=== PATIENT | female | born 1940 | race Caucasian/White ===

== ENCOUNTER 2020-05-21 15:25 | Emergency (ER) | payer MEDICARE, SELFPAY ==
[2020-05-21 15:34] VITALS: BP 156/87; PULSE 68; RESP 18; TEMP 37.1; O2SAT 97; BMI 29.2
--- NOTE | 2020-05-21 16:01 | CTR_ITS ---
PROCEDURE INFORMATION: Exam: CT Abdomen And Pelvis Without Contrast Exam date and time: 05/21/2020 4:02 PM Age: 79 years old Clinical indication: Injury or trauma; Fall; Blunt; Rlq; Prior surgery; Surgery type: Vaginal repair, hyst, gb, pacemaker; Additional info: Fall. Pelvis and right hip pain TECHNIQUE: Imaging protocol: Computed tomography of the abdomen and pelvis without contrast. Radiation optimization: All CT scans at this facility use at least one of these dose optimization techniques: automated exposure control; mA and/or kV adjustment per patient size (includes targeted exams where dose is matched to clinical indication); or iterative reconstruction. COMPARISON: No relevant prior studies available. RADIATION DOSE METRICS: Total DLP (mGy-cm): 1036.53 FINDINGS: Liver: There are no focal liver lesions present. Gallbladder and bile ducts: Cholecystectomy. Pancreas: The pancreas is normal. Spleen: The spleen is normal. Adrenal glands: The adrenal glands are normal. Kidneys and ureters: There is mild right renal pelviectasis. No renal, ureteral, or bladder calculi are seen. Stomach and bowel: There is a large hiatal hernia which contains at least 75% of the stomach. There is no evidence of intestinal perforation or obstruction. Appendix: No evidence of appendicitis. Intraperitoneal space: There is no free intraperitoneal air visualized. There is no evidence of free intraperitoneal or pelvic fluid. Vasculature: Atherosclerotic vascular disease is noted. Lymph nodes: Unremarkable. No enlarged lymph nodes. Urinary bladder: Unremarkable as visualized. Reproductive: Unremarkable as visualized. Bones/joints: There is a compression fracture at T12 which has been previously treated by means of vertebroplasty or kyphoplasty. Bone cement has extravasated into paraspinal venous structures, extending above and below the treated T12 level. One of these symmetric containing paraspinal veins extends to the dorsal wall of the inferior vena cava (series 2, images 26-27). There are degenerative changes of the hip, more severe on the right. There are old healed fractures of the left superior and inferior pubic rami. There is severe lower lumbar facet arthropathy. Soft tissues: There is a fat containing right supraumbilical hernia. CT/CT abdomen pelvis wo con [id number] IMPRESSION: 1. No acute fracture or traumatic visceral injury detected. T12 compression fracture, previously treated by vertebroplasty or kyphoplasty, with intravenous extravasation of bone cement, as above. 2. Large hiatal hernia containing at least 75% of the stomach. 3. Fat containing right supraumbilical hernia. Radiation Dose CTDIVOL = (mGy): DLP = 1036.53 (mGy-cm)
--- NOTE | 2020-05-21 16:01 | CTR_ITS ---
PROCEDURE INFORMATION: Exam: CT Cervical Spine Without Contrast Exam date and time: 05/21/2020 4:02 PM Age: 79 years old Clinical indication: Injury or trauma; Fall; Blunt trauma; Prior surgery; Surgery type: Pacemaker; Additional info: Neck pain TECHNIQUE: Imaging protocol: Computed tomography images of the cervical spine without contrast. Radiation optimization: All CT scans at this facility use at least one of these dose optimization techniques: automated exposure control; mA and/or kV adjustment per patient size (includes targeted exams where dose is matched to clinical indication); or iterative reconstruction. COMPARISON: No relevant prior studies available. RADIATION DOSE METRICS: Total DLP (mGy-cm): 451.07 FINDINGS: Bones/joints: Mild right convexity of the lower cervical spine. Anterolisthesis at C3-C4 due to facet laxity. Cervical facet arthropathy is most severe at the left upper cervical levels. Spondylitic changes are most severe at the C5-C6 and C6-C7 levels. Discs/Spinal canal/Neural foramina: No severe central canal stenosis demonstrated by CT. Neural foraminal stenosis is seen on the left at C2-C3, C3-C4, C4-C5, bilaterally at C5-C6 and C6-C7. A new Lungs: A calcified granuloma is seen at the right lung apex. Soft tissues: Unremarkable. CT/CT cervical spin wo con* [id number] IMPRESSION: 1. No acute cervical spinal injury demonstrated by CT. 2. Degenerative changes of the cervical spine, as above. Radiation Dose CTDIVOL = (mGy): DLP = 451.07 (mGy-cm)
--- NOTE | 2020-05-21 16:01 | CT_ITS ---
WS: [id number] CT scan of the head, 05/21/2020 Clinical Data: head trauma on plavix Comparison: None. DLP: 847.[address] scans at [facility] use at least one of these dose optimization techniques: automat ed exposure control; mA and/or kV adjustment per patient size (includes targeted exams where dose is matched to clinical indication); or iterative reconstruction. Findings: The ventricular system is honestly dilated without shift. No recent infarct or hemorrhage is seen. Th ere are no abnormal intracerebral masses. The cerebellum and brainstem are not remarkable. Bony windows of the skull and skull base show no fractures or erosions. There is modest soft tissue s welling over the anterior aspect of the left orbit. There is periorbital air surrounding the right gl obe. The mastoid air cells, internal auditory canals, sella turcica and intraorbital contents, are u nremarkable. Minimal mucoperiosteal thickening of the posterior aspect of the sphenoid sinuses is see n. CT/CT head wo con* [id number] Impression: 1. Negative for acute intracranial abnormalities. 2. Soft tissue swelling anterior to the left orbit and periorbital air surround ing the right globe.
--- NOTE | 2020-05-21 17:28 | CTR_ITS ---
PROCEDURE INFORMATION: Exam: CT Orbits Without Contrast Exam date and time: 05/21/2020 5:32 PM Age: 79 years old Clinical indication: Injury or trauma; Fall; Visual changes or disturbances; Other: Blurred vision RT eye; Blunt trauma (contusions or hematomas); Ocular (eye or eyeball); Right; Additional info: Fall. Air around orbit TECHNIQUE: Imaging protocol: Computed tomography images of the orbits without contrast. Radiation optimization: All CT scans at this facility use at least one of these dose optimization techniques: automated exposure control; mA and/or kV adjustment per patient size (includes targeted exams where dose is matched to clinical indication); or iterative reconstruction. COMPARISON: CT head wo con* [id number] 05/21/2020 4:26 PM RADIATION DOSE METRICS: Total DLP (mGy-cm): 380.35 FINDINGS: Orbital cavity: Scleral buckling is noted at the right optic globe. Correlate with surgical history. The appearance of the optic globes suggests previous bilateral cataract surgery. The optic globes are intact bilaterally.The orbital conal contents are unremarkable. Paranasal sinuses: There is mild partial opacification of the right ethmoid air cells. Air-fluid levels are seen in the left sphenoid sinus. Bones/joints: No acute facial fracture is identified. Soft tissues: No significant facial soft tissue swelling. CT/CT orbit BI wo con* [id number] IMPRESSION: 1. Postoperative changes of scleral buckling involving the right optic globe. 2. Appearance of the optic globes suggests previous bilateral cataract surgery. 3. No acute orbital injury is demonstrated. Radiation Dose CTDIVOL = (mGy): DLP = 380.35 (mGy-cm)
--- NOTE | 2020-05-21 19:15 | W.ED.HEATRA ---
HPI - Head Injury General: Chief complaint: Head Injury Stated complaint: fall, head injury Time Seen by Provider: 05/21/20 15:52 History of Present Illness: HPI Narrative: The patient is a 79-year-old female who comes to the ER after a ground-level fall where she tripped and fell forward. Is on Plavix and hit her head. She complains of right hip pain, headache, and facial pain. MD Complaint: head injury Mechanism of Injury: fall Loss of Consciousness: no Location of injury: frontal Severity: moderate Other Injuries: none Associated symptoms: Reports no associated symptoms; Deny confusion or neck pain Review of Systems General: Reports: 10 or more systems reviewed and unremarkable except in HPI and below Const: Denies: fatigue Eyes: Denies: change in vision, blurry vision or eye redness ENMT: Denies: throat pain, swelling of lips/tongue, ear or mastoid pain or nasal congestion Card: Denies: chest pain, palpitations, irregular heart rhythm, edema, dyspnea on exertion or orthopnea Resp: Denies: dyspnea, productive cough or non-productive cough GI: Denies: abdominal pain, diarrhea or GI cramping : Denies: flank pain, difficulty voiding, urinary frequency or urinary urgency Musc: Denies: neck pain, back pain, extremity pain, joint pain, joint redness, limited range of motion or muscle weakness Skin/Breast: Denies: rash, pruritus, erythema, skin pain or skin tenderness Neuro: Denies: headache(s), numbness in extremities, weakness in extremities, sensory changes, difficulty walking, dizziness, confusion or Slurred speech present Psych: Denies: anxiety or depression Endo: Denies: polyuria All/Imm: Denies: urticaria, throat swelling or tongue swelling Physical Exam Const: COMMON NORMALS: no acute distress, average body habitus, patient oriented x3, no limitations, healthy appearing, alert and well nourished GENERAL APPEARANCE: cooperative, comfortable, well kempt and well developed ORIENTATION/CONSCIOUSNESS: Yes awake, Yes oriented to person, Yes oriented to place and Yes oriented to time HENMT: COMMON NORMALS: normocephalic, external ears normal and Normal external nose present HEAD & SCALP: normal to inspection and normocephalic HEAD IMAGES: 1. Mild soft tissue swelling and tenderness NOSE: Normal external nose present EXTERNAL EAR: Yes external ears normal MOUTH: Normal oral and palatal mucosa present THROAT: posterior oropharynx normal OTHER: She is able to read with both eyes and with 1 eye covered using both eyes. She says her right eye is slightly blurry but she is able to read fine print out a couple feet away with that eye. No diplopia. Full range of motion with her eyes. Eye: COMMON NORMALS: Equal, round and reactive pupils present and EOMs intact bilaterally GENERAL EYE: appearance normal, both eyes and all related structures PUPIL: Yes Equal, round and reactive pupils present Neck/C-Spine: COMMON NORMALS: full ROM, no lymphadenopathy, no meningeal signs and no JVD GENERAL: Yes normal visual inspection Lymph: LYMPHATIC: no lymphadenopathy noted Chest: COMMONS NORMALS: normal inspection of the chest and normal palpation of entire chest wall Resp: COMMON NORMALS: normal respiratory effort, No retractions, No use of accessory muscles, clear to auscultation bilaterally and percussion normal EFFORT & INSPECTION: Yes able to speak in complete sentences AUSCULTATION: clear to auscultation bilaterally PERCUSSION: percussion normal Cardio: COMMON NORMALS: no JVD, regular rate, regular rhythm, S1 normal heart sound present, S2 normal heart sound present and Peripheral pulses 2+ throughout RATE: regular rate RHYTHM: regular rhythm HEART SOUNDS: S1 normal heart sound present and S2 normal heart sound present PERIPHERAL PULSES: Peripheral pulses 2+ throughout GI: COMMON NORMALS: Normal to inspection, nondistended, normoactive bowel sounds present, Soft to palpation, non-tender and no masses INSPECTION: Yes normal to inspection PALPATION: Yes Soft to palpation : COMMON NORMALS: Yes no CVA tenderness BLADDER/KIDNEY EXAM: Yes no CVA tenderness Back/Pelvis: COMMON NORMALS: no CVA tenderness, thoracic and lumbar spine normal to inspection, no thoracic nor lumbar tenderness and thoraco-lumbar ROM normal OTHER: Mild tenderness to right pelvis anteriorly and hip joint. She is able to bear weight on that joint. Extremity: COMMON NORMALS: normal to inspection, full ROM, capillary refill normal, no joint enlargement and no pedal edema GENERAL: Yes normal exam except as noted Neuro: COMMON NORMALS: patient oriented x3, CN's II-XII intact bilaterally, moves all extremities, no focal motor deficits, no sensory deficits noted and gait normal SENSORIUM/ORIENTATION: Yes alert, Yes oriented to person, Yes oriented to place and Yes oriented to time MENINGEAL SIGNS: Yes no meningeal signs Psych: COMMON NORMALS: mental status grossly normal, Normal thought process present, cooperative, normal affect and speech normal APPEARANCE: Yes well kempt ATTITUDE: Yes calm SPEECH: Yes normal speech THOUGHT PROCESS: Normal thought process present Skin: COMMON NORMALS: no rashes or lesions noted GENERAL SKIN EXAM: no rashes or lesions noted Course Vital Signs: Vital signs: Vital Signs Temperature 98.7 F 05/21/20 15:34 Pulse Rate 68 05/21/20 15:34 Respiratory Rate 18 05/21/20 15:34 Blood Pressure 156/87 05/21/20 15:34 Pulse Oximetry 97 05/21/20 15:34 MDM - Head Injury MDM Narrative: Medical decision making narrative: Patient came in after a fall and she is on clopidogrel. CT was negative for fractures other than showing some free orbital air surrounding her right orbit. She also has slight blurry vision in that eye. Discussed with Dr. Langston who thinks there is likely an occult fracture in the medial wall of the orbit that is sending air into her eye. Recommended Augmentin and follow-up in his clinic. Placed case management referral to help her get an appointment. Also discussed with Dr. Singh the incidental finding of the T12 fracture which has been repaired and extravasated into the venous system. She is not complaining of pain there and recommends outpatient follow-up. ER with worsening symptoms. primary care in a week. Discharge Plan Discharge Patient Disposition: Home Clinical Impression: Orbital fracture, Closed head injury Condition: Stable Prescriptions: New Augmentin 875-125 mg tablet 1 tab PO Q12H Qty: 20 RF: 0 No Action losartan 50 mg tablet 50 mg PO DAILY@0800 RF: 0 Sotalol AF 160 mg tablet 160 mg PO BID@0800,1999 RF: 0 amlodipine 2.5 mg tablet 2.5 mg PO DAILY@0800 RF: 0 clopidogrel 75 mg tablet 75 mg PO DAILY@0800 RF: 0 pantoprazole 40 mg tablet,delayed release (DR/EC) 40 mg PO DAILY@0800 RF: 0 cyanocobalamin (vitamin B-12) 1,000 mcg/mL solution 1,000 mcg SUBCUT Q30D RF: 0 levothyroxine 125 mcg tablet 125 mcg PO DAILY@0800 RF: 0 hydrochlorothiazide 12.5 mg capsule 12.5 mg PO DAILY@0800 RF: 0 nitroglycerin 0.4 mg tablet, sublingual 0.4 mg sublingual Q5M MDD 3 PRN (Reason: Chest Pain) RF: 0 fluoxetine 20 mg capsule 40 mg PO DAILY@0800 RF: 0 Tylenol 325 mg Tablet 3,250,650 mg PO QID PRN (Reason: Pain) RF: 0 Vitamin D3 (with calcium carb) 1 tab PO DAILY@0800 RF: 0 Discharge Orders: Discharge ED (Routine); Ordered 05/21/20 Ordered By: Cuate Rodriges Discharge Diet: Advance as tolerated Discharge Activity: Resume usual activity Patient Instructions: Fractures - Orbital, Opioid Safety Activity Restrictions/Additional Instructions: There is some air in your right eye. CAT scan does not see a fracture but most likely there is one there albeit small and hidden. Please take the Augmentin and follow-up with Dr. Langston in his eye clinic within a couple days and return to the ER with worsening symptoms. 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
[2020-05-21] MEDS: amoxicillin-clav 875-125 mg Tablet 1 TAB PO (19:39)
[2020-05-21 19:49] VITALS: PULSE 78; RESP 18; O2SAT 98
--- NOTE | 2020-05-22 07:30 | DCPLANNER ---
Addendum entered by Liya Alvarenga 06/03/20 12:09: Patient had a follow up appointment scheduled for 05.28.[address] Langston - patient did attend appointment. Original Note: control system manager had message to schedule a follow up appointment for patient with Dr. Langston for air surrounding orbit possible fracture. control system manager faxed patients information to the office of Dr. Langston. Clinic will call patient with appointment information.
--- NOTE | 2020-05-23 08:39 | DCPLANNER ---
assistant food service manager had message to schedule a follow up appointment for patient with ortho for intravenous extravasation of vertebroplasty cement T12. assistant food service manager called the ortho clinic, spoke with Leena, gave clinic patients information. assistant food service manager was told that patients information would be printed and reviewed. Clinic will call patient with appointment information.
--- NOTE | 2020-06-03 09:50 | DCPLANNER ---
entry level account manager called the ortho clinic, spoke with Lise, to confirm that a follow up appointment had been scheduled. entry level account manager was told that when clinic tried to contact patient that the call could not be completed as dialed. entry level account manager called phone number [phone], and a recording stated that patient is unavailable at this time. entry level account manager was unable to speak with patient or leave a voicemail at this time.
== END 2020-05-21 19:50 | disposition home or self-care (01) ==
PROVIDERS: Emergency Provider Family Medicine
DX: S02.85XA Fracture of orbit, unspecified, initial encounter for closed fracture (principal); S09.8XXA Other specified injuries of head, initial encounter; Z79.02 Long term (current) use of antithrombotics/antiplatelets; W01.0XXA Fall on same level from slipping, tripping and stumbling without subsequent striking against object, initial encounter
CPT/HCPCS: 70450; 70480; 72125; 74176; 99283

== ENCOUNTER → 2020-07-10 11:11 | Outpatient (BNVA) | payer MEDICARE, SELFPAY | PROVIDERS: Visit Provider Family Medicine | DX: I10 Essential (primary) hypertension (principal) | CPT/HCPCS: 80048 ==

== ENCOUNTER → 2020-08-07 14:31 | Outpatient (BNVA) | payer MEDICARE, SELFPAY | PROVIDERS: Visit Provider Emergency Medicine | DX: R69 Illness, unspecified (principal); R61 Generalized hyperhidrosis; R80.9 Proteinuria, unspecified; R53.83 Other fatigue | CPT/HCPCS: 80053; 81000; 84443; 85025 ==

== ENCOUNTER → 2020-08-10 15:04 | Outpatient (BNVA) | payer MEDICARE, SELFPAY | PROVIDERS: Visit Provider Emergency Medicine | DX: T78.40XA Allergy, unspecified, initial encounter (principal); W57.XXXA Bitten or stung by nonvenomous insect and other nonvenomous arthropods, initial encounter; R61 Generalized hyperhidrosis; R53.83 Other fatigue; E87.1 Hypo-osmolality and hyponatremia | CPT/HCPCS: 71046; 86003; 86618; 86666; 86757 ==

== ENCOUNTER → 2020-08-19 10:19 | Outpatient (BNVA) | payer MEDICARE, SELFPAY | PROVIDERS: Visit Provider Family Medicine | DX: R53.83 Other fatigue (principal); E87.1 Hypo-osmolality and hyponatremia; M54.9 Dorsalgia, unspecified; I10 Essential (primary) hypertension; R53.82 Chronic fatigue, unspecified | CPT/HCPCS: 80048; 82607; 82652; 85025; 85651; 86140 ==

== ENCOUNTER 2020-10-29 09:49 | Outpatient (CLI) | payer MEDICARE, SELFPAY ==
--- NOTE | 2020-10-29 09:57 | XR_ITS ---
WS: [id number] Thoracic spine, 3 views, 10/29/2020. Clinical Data: M54.9 - Dorsalgia, unspecified Comparison: None. Findings: The thoracic vertebral bodies show osteoporosis. There is a compression fracture of indeterminate age of T11 with loss of 50% of the central vertebral body height. There is vertebroplasty cement in L1. Midline sternotomy sutures and a permanent pacemaker are noted. There is left pleural reaction. There are clips in the right upper quadrant from a cholecystectomy. XR/XR thoracic spine 3V* [id number] Impression: 1. Diffuse osteoporosis. 2. Compression fracture of indeterminate age of T11 and L1.
--- NOTE | 2020-10-29 09:57 | XR_ITS ---
WS: [id number] Lumbar spine, 3 views, 10/29/2020 Clinical Data: M54.9 - Dorsalgia, unspecified Comparison: None. Findings: There is a compression fracture with loss of over 50% of central vertebral body height of L1 with dahlia tebroplasty cement inside. There is a T11 compression fracture. There is a levoscoliosis. There is de generative disc narrowing at all disc levels except L3-L4. There is a subluxation of L5 on S1 of 0.8 cm. The transverse processes and SI joints are unremarkable . There is a pacemaker wire noted in the right ventricle. There are clips in the right upper quadrant from a cholecystectomy. Abdominal aorta shows atherosclerosis without an aneurysm. XR/XR lumbar spine 2-3V* [id number] Impression: 1. L1 and T11 compression fracture. 2. Diffuse osteoporosis with degenerative disc disease. 3. Subluxation of L5 on S1 of 0.8 cm 4. Levoscoliosis.
== END 2020-10-29 09:50 | disposition home or self-care (01) ==
PROVIDERS: PCP Nurse Practitioner Family; Visit Provider Nurse Practitioner Family
DX: M81.0 Age-related osteoporosis without current pathological fracture (principal); S22.080A Wedge compression fracture of T11-T12 vertebra, initial encounter for closed fracture; S32.010A Wedge compression fracture of first lumbar vertebra, initial encounter for closed fracture; X58.XXXA Exposure to other specified factors, initial encounter
CPT/HCPCS: 72072; 72100

== ENCOUNTER 2020-11-17 08:45 | Outpatient (CLI) | payer MEDICARE, SELFPAY ==
--- NOTE | 2020-11-17 09:30 | NM_ITS ---
WS: [id number] NUCLEAR MEDICINE WHOLE BODY BONE SCAN HISTORY: S22.080A - Wedge compression fracture of T11-T12 vertebrae. COMPARISON: Lumbar spine radiograph 10/29/2020. Thoracic spine radiograph 10/29/2020. TECHNIQUE: The patient was injected with 24.1 mCi of Technetium 99m HDP and serial whole-body scintig duke have been performed with anterior and posterior images. Intense uptake of radionuclide in the lower thoracic spine may be only involving the T10 vertebral estela dy. Compression fracture was noted on the prior radiograph. Minimal uptake in the RIGHT L3 pedicle fr om osteoarthritis. There is additional more focal increased uptake within the upper thoracic vertebra l bodies. This may be T3. There is additional increased uptake which is only marker probably at the T 7 level. The exact levels are difficult to identified. No corresponding abnormalities are noted on th e radiographs. Normal soft tissue uptake. Prior bilateral knee replacements. Moderate degenerative changes at the an kles and wrists bilaterally. Focal area of increased uptake involving the RIGHT pelvis may be related to a subacute pubic rami fracture. NM/NM bone scan whole body* [id number] IMPRESSION: 1. Focal intense uptake within the T10 vertebral body. From an acute osteoporo tic fracture. 2. Additional focal intense uptake in one of the upper thoracic vertebral bodi es, probably T3 from an acute fracture. If further evaluation is necessary cons idering these fractures MRI would provide additional information. 3. Normal soft tissue uptake.
== END 2020-11-17 08:46 | disposition home or self-care (01) ==
LOC: RAD 08:52
PROVIDERS: PCP Nurse Practitioner Family; Visit Provider Physician Assistant
DX: S22.080A Wedge compression fracture of T11-T12 vertebra, initial encounter for closed fracture (principal); X58.XXXA Exposure to other specified factors, initial encounter
CPT/HCPCS: 78306; A9561

== ENCOUNTER → 2020-11-20 11:32 | Outpatient (BNVA) | payer MEDICARE, SELFPAY | PROVIDERS: PCP Nurse Practitioner Family; Visit Provider Physician Assistant | DX: S22.000A Wedge compression fracture of unspecified thoracic vertebra, initial encounter for closed fracture (principal); M54.9 Dorsalgia, unspecified; Z20.822 Contact with and (suspected) exposure to COVID-19; X58.XXXA Exposure to other specified factors, initial encounter | CPT/HCPCS: 87635 ==

== ENCOUNTER → 2020-11-27 10:35 | Outpatient (BNVA) | payer MEDICARE, SELFPAY | PROVIDERS: PCP Family Medicine; Referring Provider Orthopaedic Surgery; Visit Provider Orthopaedic Surgery | DX: S22.000A Wedge compression fracture of unspecified thoracic vertebra, initial encounter for closed fracture (principal); Z20.822 Contact with and (suspected) exposure to COVID-19; X58.XXXA Exposure to other specified factors, initial encounter | CPT/HCPCS: 87635 ==

== ENCOUNTER 2020-12-03 05:47 | Day surgery (SDC) | payer MEDICARE, SELFPAY ==
[2020-11-24 13:31] VITALS: BMI 29.2
--- NOTE | 2020-11-24 16:19 | PC.NURSE ---
SURGERY CANCELED BECAUSE PT STILL ON PLAVIX. DR SO'S OFFICE NOTIFIED.IT IS TO BE RESCHEDULED. PT NOTIFIED THAT SHE IS TO GET CLEARANCE FROM HER CARDIAC DR TO HOLD HER PLAVIX FOR 4 DAYS BEFORE SURGERY.
[2020-12-03] VITALS (7 sets, daily range): BP systolic 158–190; BP diastolic 68–90; PULSE 70–85; RESP 16–18; TEMP 36.1–36.5; O2SAT 96–100
--- NOTE | 2020-12-03 | SCC_ITS ---
Procedure Done: 1. T10 kyphoplasty 2. T11 kyphoplasty 9.3 seconds of fluoroscopic guidance, for a cumulative dose of 31.97 mGy, was provided to Dr. Singh by the radiology department. C-arm images of the thoracic spine were saved for the patient's permanent record. [facility]
--- NOTE | 2020-12-03 05:59 | SC_ITS ---
WS: [id number] Exam: C-arm FL for Kyphoplasty Date/Time of Exam: 12/03/2020 5:59 AM Reason For Exam: Kyphoplasty Intraoperative C-arm images at the thoracolumbar junction are obtained in the AP and lateral views. Compression fractures of T11, T12 and L1 have been treated with kyphoplasty. The L1 and T11 fractures are relatively high-grade fractures with significant loss of vertebral height. The T12 fracture is a low-grade fracture. No obvious posterior displacement noted from images presented. SC/C-arm FL for Kyphoplasty IMPRESSION: 1. Kyphoplasty involving a compression fractures of T11, T12 and L1 as indicate d above.
[2020-12-03] MEDS: sodium chloride 0.9% 1,000 ML 30 ML IV (06:51)
--- NOTE | 2020-12-03 06:55 | W.PM.OPSUD ---
Surgery/Procedure H&P Update DATE OF PROCEDURE: December 03, 2020 DATE H&P PERFORMED: 11/20/20 H&P UPDATE INFORMATION: I have reviewed H&P completed within last 30 days, I have examined patient prior to procedure and No changes to prior documentation PREOP DIAGNOSIS: Compression fracture T10 PLANNED PROCEDURE: Operation Date: 12/03/20 07:00 Proposed Procedures p Kyphoplasty T10 T11 [id number] S22.00A(Not Applicable) - Nj Singh DO Operation Date: 12/03/20 15:50 Proposed Procedures p Kyphoplasty T11 T12 [id number] S22.00A(Not Applicable) - Nj Singh DO
--- NOTE | 2020-12-03 07:00 | ANES.PREANE2 ---
Pre-Anesthetic Assessment Pre-Anesthetic Assessment: Height/Weight: Height 1.63 m Weight 77.111 kg Temp Pulse Resp BP Pulse Ox 97.7 F 85 18 161/90 96 12/03/20 06:11 12/03/20 06:11 12/03/20 06:11 12/03/20 06:11 12/03/20 06:11 Preop Diagnosis: Compression fracture T10 Proposed Procedure: Operation Date: 12/03/20 07:00 Proposed Procedures p Kyphoplasty T10 T11 [id number] S22.00A(Not Applicable) - Nj Singh, DO Operation Date: 12/03/20 15:50 Proposed Procedures p Kyphoplasty T11 T12 13 S22.00A(Not Applicable) - Nj Singh, DO Was Beta Nadege taken within 24 hours: N/A Was Clonidine taken within 24 hours: N/A Last intake: Intake Last Liquid Date 12/02/20 Last Liquid Time 21:00 Last Solid Date 12/02/20 Last Solid Time 18:30 Social: Social History: No tobacco Exam: Pre-Anes Outpt Exam: alert, oriented x 3, clear to auscultation bilaterally and regular rate & rhythm Airway: Submandibular: WNL Cervical ROM: WNL MP: 2 History/ROS: No significant complaints CV/HEM: CV/HEM: Murmur Comments: Aortic valve replacement GI: GI: GERD Metabolic: Metabolic: Thyroid Musc/skel: Musc/skel: OA/DJD Comments: Osteoporosis Neuropsych: Neuropsych: TIA Anesthetic Plan: ASA status: 3 Anesthesia: General Risk of > 500 ml blood loss (7ml/kg in children): No Meds/Allergies Current Medications: Current Medications Generic Name Dose Route Start Last Admin Trade Name Freq PRN Reason Stop Dose Admin Sodium Chloride 1,000 mls @ 30 ml s/hr 12/03/20 06:00 12/03/20 06:51 Sodium Chloride 0.9% IV 12/04/20 05:59 30 mls/hr .Q24H RICKIE Administration PFSH Anesthesia PFSH: Medical History GERD (gastroesophageal reflux disease) History of CVA (cerebrovascular accident) Hypertension Hypothyroidism Osteoporosis Pacemaker Traumatic compression fracture of eleventh thoracic vertebra Surgical History Aortic valve replaced H/O eye surgery H/O vaginal surgery H/O: hysterectomy History of ankle surgery History of knee replacement History of open heart surgery Hx of cataract surgery Hx of tonsillectomy S/P cholecystectomy Family History Mother Stroke Social History Second hand smoke exposure: No Alcohol intake: current Alcohol intake frequency: holidays/special occasions only Female Reproductive History: Para: 2 Spontaneous abortions: No Data Anesthesia Cardiac Studies: No Data to Display
[2020-12-03] MEDS: iohexol 300 mg/mL 50 mL Btl (OR ONLY) XX (07:38)
--- NOTE | 2020-12-03 08:08 | P.PCN_ITS ---
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
--- NOTE | 2020-12-03 08:08 | PM.PACU ---
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
--- NOTE | 2020-12-03 08:10 | PM.OP ---
Operative Report Date of procedure: December 03, 2020 Pre-op Diagnosis: osteoporotic pathologic wedge Compression fracture T10, T11 Post-op diagnosis: same Procedure Done: 1. T10 kyphoplasty 2. T11 kyphoplasty Surgeon: Nj Singh Anesthesia: General Estimated blood loss (mL): 5 Condition: stable Disposition: PACU Procedure: 1. 10 kyphoplasty 2. T11 kyphoplasty Patient was brought to the operative suite. After undergoing anesthesia she was placed in the prone position. All areas impingement were well-padded. Patient was prepped and draped in normal sterile fashion. AP lateral fluoroscopy were brought in to do biplanar fluoroscopy. Attention was brought to the T10 vertebrae first. The left pedicle was identified the awl was inserted followed by the drill followed by the balloon. This is all followed on AP lateral fluoroscopy. Balloon was inflated. Then cement was inserted. This was followed on AP lateral fluoroscopy. Next attention was brought to the T11 vertebrae. The again pedicle was identified the awl was inserted the balloon was inserted the drill was inserted and then cement was inserted. Once is completed wounds were irrigated and closed with nylon suture sterile dressing was applied patient was transferred to the PACU in stable condition.
[2020-12-03] MEDS: HYDROcodone-acetaminophen 7.5-325 mg Tablet 1 TAB PO (08:42)
--- NOTE | 2020-12-03 15:51 | ANE.PACU2 ---
Inpatient post-anesthesia follow up: Airway intact: Yes Vital signs: Temperature 97.3 F Pulse Rate 70 Respiratory Rate 18 Blood Pressure 162/78 Pulse Oximetry 100 Oxygen Delivery Me thod Room Air Oxygen Flow Rate Fraction of Inspir ed Oxygen Hydration adequate: Yes Nausea and vomiting: No Pain level: 2 Mental status: Baseline
== END 2020-12-03 09:22 | disposition home or self-care (01) ==
PROVIDERS: PCP Family Medicine; Visit Provider Orthopaedic Surgery
PROC: (CPT 22513; principal; 2020-12-03 07:00)
DX: M80.88XA Other osteoporosis with current pathological fracture, vertebra(e), initial encounter for fracture (principal); Z86.73 Personal history of transient ischemic attack (TIA), and cerebral infarction without residual deficits; I10 Essential (primary) hypertension; Z95.0 Presence of cardiac pacemaker; E03.9 Hypothyroidism, unspecified; Z95.2 Presence of prosthetic heart valve; Z79.02 Long term (current) use of antithrombotics/antiplatelets; K21.9 Gastro-esophageal reflux disease without esophagitis
CPT/HCPCS: 22513; 22515; 76000; J0690; J1100; J2370; J2405; J2704; J2710; J3010; J3490; J7030

== ENCOUNTER 2020-12-30 09:07 | Outpatient (CLI) | payer MEDICARE, SELFPAY ==
--- NOTE | 2020-12-30 09:00 | IR_ITS ---
WS: [id number] MYELOGRAM LUMBAR SPINE Fluoroscopic guided lumbar myelogram CLINICAL INFORMATION: M54.50 - Low back pain, unspecified COMPARISON: None. TECHNIQUE: The procedure, including risks, benefits, and complications, were discussed with the patie nt who agreed to proceed. A timeout was performed to confirm correct patient, procedure, and site. Using sterile technique, the patient was prepped and draped in the usual sterile fashion. After admin istration of local anesthesia using 1% preservative-free lidocaine and using fluoroscopic guidance, a 22-gauge spinal needle was advanced into the subarachnoid space at the L5-S1 level. Subsequently 13 cc of Omnipaque 240 was administered into the thecal sac. The needle was removed and hemostasis was a chieved. Spot fluoroscopic images were obtained. FLUOROSCOPIC TIME: 1.1 minutes. Spot fluoroscopic images demonstrate lumbar scoliosis. Slight anterolisthesis L4 on L5 neutral positi on measuring 2.5 mm. This increases slightly on flexion to 3.6 mm. This decreases slightly on extensi on to 2.5 mm. Prior kyphoplasty changes with chronic compression at T10-T12. Disc space narrowing wor se at L2-3 L4-5 and L5-S1. Retrolisthesis L2 on L3 measuring 3.6 mm in neutral and unchanged on flexi on-extension. Prior sternotomy. Please see CT myelogram report for additional detail. IR/IR myelogram sp lumbar [id number] IMPRESSION: 1. Uncomplicated lumbar myelogram. 2. Mild flexion/extension instability L4-5 3. Moderate central canal stenosis L3-L4 and L4-L5. 4. Kyphoplasty changes at T10, T11, T12.
[2020-12-30] MEDS: iohexol 240 mg/mL 50 mL Btl INTRATHECA (10:11)
--- NOTE | 2020-12-30 11:30 | CT_ITS ---
WS: [id number] CT LUMBAR MYELOGRAM TECHNIQUE: Contrast-enhanced CT of the lumbar spine with coronal and sagittal reformatted images. CLINICAL INFORMATION: M54.50 - Low back pain, unspecified COMPARISON: None. DLP: 1979.[address] scans at [facility] use at least one of these dose optimization techniques: automated e xposure control; mA and/or kV adjustment per patient size (includes targeted exams where dose is matc hed to clinical indication); or iterative reconstruction. FINDINGS: Lumbar scoliosis. Prior kyphoplasty changes with anterior wedging at T10, T11, and T12. No significan t retropulsion. Disc space narrowing worse at L2-3 and L5-S1 with vacuum disc phenomenon. Slight ante rolisthesis L4 on L5 and L5 on S1. Slight retrolisthesis L2 on L3. L1-L2: Mild annular bulging with slight effacement of ventral thecal sac. Mild facet arthropathy. Mil d left and no significant right foraminal narrowing. Spinal canal is patent. L2-L3: Slight retrolisthesis with vacuum disc phenomenon. Narrowing of the right subarticular recess with slight impingement traversing right L3 nerve root. Mild central canal stenosis. Mild facet arthr opathy. Moderate right and no significant left foraminal narrowing. L3-L4:Mild disc bulging with endplate ridging. Moderate central canal stenosis and impingement dhaval sing L4 nerve roots bilaterally. Moderate facet arthropathy with ligamentum flavum hypertrophy. Kira en are patent. L4-L5: Slight anterolisthesis. Disc bulging and combination with facet arthropathy and ligamentum fla vum hypertrophy results in moderate to severe central canal stenosis and impingement traversing L5 ne rve roots bilaterally. Mild right foraminal narrowing. Left foramen is patent. Advanced facet arthrop athy. L5-S1: Disc osteophyte complex with endplate ridging. Slight anterolisthesis L5 on S1. Vacuum disc ph enomenon. Mild left and no significant right foraminal narrowing. Advanced facet arthropathy. Slight contact of the traversing S1 nerve roots. Degenerative arthritis sacroiliac joints. Large esophageal hiatal hernia with intrathoracic stomach. Interstitial thickening in the lung bases. Adrenal glands are normal. Left renal atrophy. CT/CT lumbar spine w con [id number] IMPRESSION: 1. Lumbar scoliosis. 2. Moderate central canal stenosis L3-4 and moderate to severe central canal s tenosis L4-5 due to disc bulging in combination with facet arthropathy and liga mentum flavum flavum hypertrophy. Advanced facet arthropathy L4-L5. 3. Recent kyphoplasty changes with compression of the T10, T11, T12 vertebral bodies. No retropulsion. Spinal canal is patent at the kyphoplasty levels. 4. Mild central canal stenosis L2-3 with impingement on the traversing right L 3 nerve root and subarticular recess. Moderate right foraminal narrowing. 5. Large esophageal hiatal hernia with intrathoracic stomach unchanged since C T abdomen pelvis May 21, 2020
== END 2020-12-30 09:08 | disposition home or self-care (01) ==
PROVIDERS: PCP Family Medicine; Visit Provider Orthopaedic Surgery
DX: M54.50 Low back pain, unspecified (principal); M41.86 Other forms of scoliosis, lumbar region; M48.061 Spinal stenosis, lumbar region without neurogenic claudication; K44.9 Diaphragmatic hernia without obstruction or gangrene; M53.2X6 Spinal instabilities, lumbar region
CPT/HCPCS: 62304; 72120; 72132; 85610; Q9966

== ENCOUNTER → 2021-01-12 10:03 | Outpatient (BNVA) | payer MEDICARE, SELFPAY | PROVIDERS: PCP Family Medicine; Visit Provider Family Medicine | DX: I10 Essential (primary) hypertension (principal); Z86.73 Personal history of transient ischemic attack (TIA), and cerebral infarction without residual deficits; K21.9 Gastro-esophageal reflux disease without esophagitis; E53.8 Deficiency of other specified B group vitamins; R53.83 Other fatigue; J44.9 Chronic obstructive pulmonary disease, unspecified; E03.9 Hypothyroidism, unspecified; Z13.220 Encounter for screening for lipoid disorders; Z13.6 Encounter for screening for cardiovascular disorders | CPT/HCPCS: 80053; 80061; 82607; 83735; 84443; 85025 ==

== ENCOUNTER → 2021-01-21 10:30 | Outpatient (BNVA) | payer MEDICARE, SELFPAY | PROVIDERS: PCP Family Medicine; Referring Provider Orthopaedic Surgery; Visit Provider Anesthesiology Pain Medicine | DX: M48.062 Spinal stenosis, lumbar region with neurogenic claudication (principal); S22.080A Wedge compression fracture of T11-T12 vertebra, initial encounter for closed fracture; M47.816 Spondylosis without myelopathy or radiculopathy, lumbar region; M51.16 Intervertebral disc disorders with radiculopathy, lumbar region; M79.604 Pain in right leg; M79.605 Pain in left leg; X58.XXXA Exposure to other specified factors, initial encounter; Z79.891 Long term (current) use of opiate analgesic | CPT/HCPCS: 99205 ==

== ENCOUNTER → 2021-02-11 13:39 | Outpatient (BNVA) | payer MEDICARE, SELFPAY | PROVIDERS: PCP Family Medicine; Visit Provider Anesthesiology Pain Medicine | DX: M48.062 Spinal stenosis, lumbar region with neurogenic claudication (principal); Z79.891 Long term (current) use of opiate analgesic | CPT/HCPCS: 64483; 64484; J1100; J3490 ==

== ENCOUNTER → 2021-02-25 10:50 | Outpatient (BNVA) | payer MEDICARE, SELFPAY | PROVIDERS: PCP Family Medicine; Visit Provider Anesthesiology Pain Medicine | DX: M48.062 Spinal stenosis, lumbar region with neurogenic claudication (principal); M47.816 Spondylosis without myelopathy or radiculopathy, lumbar region; M51.16 Intervertebral disc disorders with radiculopathy, lumbar region; S22.080A Wedge compression fracture of T11-T12 vertebra, initial encounter for closed fracture; M79.604 Pain in right leg; M79.605 Pain in left leg; X58.XXXA Exposure to other specified factors, initial encounter; Z79.891 Long term (current) use of opiate analgesic | CPT/HCPCS: 99214 ==

== ENCOUNTER 2021-03-02 10:51 | Outpatient (CLI) | payer MEDICARE, SELFPAY ==
--- NOTE | 2021-03-02 10:58 | XR_ITS ---
WS: [id number] Thoracic spine, 3 views, 03/02/2021 Clinical Data: S22.080A - Wedge compression fracture of T11-T12 vertebra... Comparison: Thoracic spine, 10/29/2020. Findings: Kyphoplasty cement is now within T11 and T12 vertebral bodies. There is still kyphoplasty cement and T12. There are compression fractures of T11 and T12 unchanged. There is diffuse osteoporosis. There a re midline sternotomy sutures. Pacemaker wires are present. There is an artificial cardiac valve. XR/XR thoracic spine 3V* [id number] Impression: 1. Kyphoplasty material now in T11 and T12. 2. No change in compression fractures of T11 and L1. 3. Osteoporosis of the thoracic vertebral bodies.
== END 2021-03-02 10:52 | disposition home or self-care (01) ==
LOC: RAD 10:55
PROVIDERS: PCP Family Medicine; Visit Provider Anesthesiology Pain Medicine
DX: S22.080A Wedge compression fracture of T11-T12 vertebra, initial encounter for closed fracture (principal); S32.019A Unspecified fracture of first lumbar vertebra, initial encounter for closed fracture; X58.XXXA Exposure to other specified factors, initial encounter; M81.0 Age-related osteoporosis without current pathological fracture
CPT/HCPCS: 72072

== ENCOUNTER → 2021-03-19 10:50 | Outpatient (BNVA) | payer MEDICARE, SELFPAY | PROVIDERS: PCP Family Medicine; Visit Provider Anesthesiology Pain Medicine | DX: M48.062 Spinal stenosis, lumbar region with neurogenic claudication (principal); M47.816 Spondylosis without myelopathy or radiculopathy, lumbar region; M51.16 Intervertebral disc disorders with radiculopathy, lumbar region; S22.080A Wedge compression fracture of T11-T12 vertebra, initial encounter for closed fracture; X58.XXXA Exposure to other specified factors, initial encounter; Z79.891 Long term (current) use of opiate analgesic | CPT/HCPCS: 99213 ==

== ENCOUNTER 2021-10-01 15:58 | Emergency (ER) | payer MEDICARE, SELFPAY ==
[2021-10-01 16:26] VITALS: BP 154/76; PULSE 76; RESP 16; TEMP 36.9; O2SAT 93; BMI 26.6
--- NOTE | 2021-10-01 17:45 | ED_ITS ---
HPI - Headache General: Chief Complaint: Headache Stated Complaint: Headache, sore throat Time Seen by Provider: 10/01/21 17:43 History of Present Illness: 80-year-old female comes in today with complaints of illness for the last 2 days. Patient reports started at 2 AM yesterday morn ing which she woke up chilling and feeling ill. Today patient reports 1 episode of emesis. Patient continues to have a headache and some generalized body aches. Patient has a history of coronary artery disease, pacemaker insertion, lumbar disc disease, facet arthritis, GERD, hypothyroidism, and hypertension. Patient appears nontoxic. Patient appears in mild to no pain. Associated symptoms: Reports malaise and vomiting (x1); Deny chest pain or rash Review of Systems Const: Reports: chills, body aches and malaise Eyes: Denies: change in vision ENMT: Reports: throat pain Card: Denies: chest pain Resp: Denies: dyspnea GI: Reports: vomiting (x1); Denies: abdominal pain : Denies: difficulty voiding Skin/Breast: Denies: rash Neuro: Reports: headache(s) PFSH ED PFSH: Medical History GERD (gastroesophageal reflux disease) History of CVA (cerebrovascular accident) Hypertension Hypothyroidism Osteoporosis Pacemaker Traumatic compression fracture of eleventh thoracic vertebra Surgical History Aortic valve replaced H/O eye surgery H/O vaginal surgery H/O: hysterectomy History of ankle surgery History of knee replacement History of open heart surgery Hx of cataract surgery Hx of tonsillectomy S/P cholecystectomy Family History Mother Stroke Social History Smoking and tobacco status: never smoked Second hand smoke exposure: No Alcohol intake: current Alcohol intake frequency: holidays/special occasions only Female Reproductive History: Para: 2 Spontaneous abortions: No Physical Exam Const: COMMON NORMALS: alert HENMT: COMMON NORMALS: normocephalic HEAD & SCALP: normocephalic THROAT: posterior oropharynx abnormal cobblestoning Neck/C-Spine: COMMON NORMALS: full ROM and no meningeal signs Resp: COMMON NORMALS: normal respiratory effort and clear to auscultation bi laterally AUSCULTATION: clear to auscultation bilaterally Cardio: COMMON NORMALS: regular rate and regular rhythm RATE: regular rate RHYTHM: regular rhythm GI: COMMON NORMALS: Soft to palpation and non-tender PALPATION: Yes Soft to palpation : COMMON NORMALS: Yes no CVA tenderness BLADDER/KIDNEY EXAM: Yes no CVA tenderness Back/Pelvis: COMMON NORMALS: no CVA tenderness Extremity: COMMON NORMALS: no pedal edema Neuro: SENSORIUM/ORIENTATION: Yes alert MENINGEAL SIGNS: Yes no meningeal signs Skin: COMMON NORMALS: no rashes or lesions noted GENERAL SKIN EXAM: no rashes or lesions noted Course Vital Signs: Vital signs: Vital Signs Temperature 98.3 F 10/01/21 19:21 Pulse Rate 71 10/01/21 19:21 Respiratory Rate 16 10/01/21 17:47 Blood Pressure 178/79 10/01/21 19:21 Pulse Oximetry 99 10/01/21 19:21 Oxygen Delivery Me thod 10/01/21 19:21 MDM - Headache Medical Decision Making 80-year-old female comes in today with complaints of illness that started yesterday about 2:00 in the morning. Patient reports that she felt chills had a headache and was nauseous. Patient did report 1 episode of nausea and vomiting today. Patient does have a cardiac history. Patient appears mildly unwell but not toxic. Lungs are clear to auscultation. Posterior pharynx shows postnasal drip with erythema. No significant swelling is noted to the lower extremities. Differential diagnosis includes but not limited to viral syndrome, COVID-19, electrolyte imbalance. Laboratory values noted a positive COVID-19 test. Troponin was unremarkable. Urinalysis was negative. Recommended patient follow-up as needed for worsening symptoms such as chest pain and shortness of breath. Reviewed the use of a pulse oximetry of patient to monitor for pulse ox greater than 90%. Patient reported understanding and agreed to plan. Lab Data : 10/01/21 18:41 10/01/21 18:20 Laboratory Results WBC 5.5 10^3/uL (4.0-10.0) 10/01/21 18:41 RBC 4.68 10^6/uL (4.1-5.3) 10/01/21 18:41 Hgb 13.4 g/dL (11.5-15.3) 10/01/21 18:41 Hct 42.8 % (37.0-47.0) 10/01/21 18:41 MCV 91.5 fl (81-99) 10/01/21 18:41 MCH 28.6 pg (28.0-34.0) 10/01/21 18:41 MCHC 31.3 g/dL (30.0-36.0) 10/01/21 18:41 RDW 14.1 % (12.1-15.1) 10/01/21 18:41 Plt Count 115 10^3/cmm (130-400) L 10/01/21 18:41 MPV 10.7 fL (7.4-10.4) H 10/01/21 18:41 Neut % (Auto) 49.0 % 10/01/21 18:41 Lymph % (Auto) 29.7 % 10/01/21 18:41 Stokes % (Auto) 18.9 % 10/01/21 18:41 Eos % (Auto) 1.6 % 10/01/21 18:41 Baso % (Auto) 0.4 % 10/01/21 18:41 Neut # (Auto) 2.68 10^3/uL (1.8-7.7) 10/01/21 18: Lymph # (Auto) 1.6 10^3/uL (0.8-4.8) 10/01/21 18:41 Stokes # (Auto) 1.0 10^3/uL (0.2-0.9) H 10/01/21 18:41 Eos # (Auto) 0.1 10^3/uL (0.0-0.8) 10/01/21 18:41 Baso # (Auto) 0.0 10^3/uL (0.0-0.1) 10/01/21 18: Nucleated RBC % (auto) 0 % 10/01/21 18: Nucleated RBCs # 0.0 /100WBC 10/01/21 18:41 Troponin T Gen 5 ng/L 9 ng/L (0-10) 10/01/21 18:20 Urine Color Yellow (Yellow) 10/01/21 18:30 Urine Appearance Sl hazy (CLEAR) 10/01/21 18:30 Urine pH 5 (5-7) 10/01/21 18:30 Ur Specific [place] 1.020 (1.005-1.030) 10/01/21 18:30 Urine Protein Neg (Negative) 10/01/21 18:30 Urine Glucose (UA) Norm (Normal) 10/01/21 18:30 Urine Ketones Negative (Negative) 10/01/21 18:30 Urine Blood Neg (Negative) 10/01/21 18:30 Urine Nitrate Negative (Negative) 10/01/21 18:30 Urine Bilirubin Neg (Negative) 10/01/21 18:30 Urine Urobilinogen Norm mg/dL (Negative) 10/01/21 18:30 Ur Leukocyte Esterase Negative (Negative) 10/01/21 18:30 SARS-CoV-2 Ag (Rapid) Positive (Negative) H 10/01/21 18:45 EKG Data EKG 1: EKG interpretation date: 10/01/21 EKG interpretation time: 18:10 Interpretation: EKG shows a atrial paced rhythm with a regular rate at [address] elevation or ectopy is noted. Prior exam was not immediately available for comparison. Discharge Plan Discharge Patient Disposition: Home Clinical Impression: COVID-19 Condition: Stable Prescriptions: No Action (DME) BD Eclipse Luer-Nirav 3 mL 23 x 1 syringe See Rx Instructions .Route Rx Instructions: As directed with B12 injection cyanocobalamin (vitamin B-12) 1,000 mcg/mL solution 1,000 mcg SUBCUT Q30D 300 Days Qty: 10 1RF Rx Instructions: with needles and syringe amlodipine 2.5 mg tablet 2.5 mg PO DAILY 90 Days Qty: 90 1RF clopidogrel 75 mg tablet 75 mg PO DAILY 90 Days Qty: 90 1RF losartan 50 mg tablet 50 mg PO DAILY 90 Days Qty: 90 1RF levothyroxine 125 mcg tablet 125 mcg PO DAILY 90 Days Qty: 90 1RF fluoxetine 20 mg capsule 20 mg PO DAILY 90 Days Qty: 90 1RF pantoprazole 40 mg tablet,delayed release (DR/EC) 40 mg PO BID 90 Days Qty: 180 1RF fluconazole 150 mg tablet 150 mg PO Q3D 0 Days Qty: 2 2RF Rx Instructions: may repeat second dose 72 hrs after first dose if symptoms persist sotalol [Sotalol AF] 160 mg tablet 160 mg PO BID@0800,1999 nitroglycerin 0.4 mg tablet, sublingual 0.4 mg sublingual Q5M MDD 3 PRN (Reason: Chest Pain) acetaminophen [Tylenol] 325 mg Tablet 3,250,650 mg PO QID PRN (Reason: Pain) Vitamin D3 (with calcium carb) 1 tab PO DAILY@0800 Discharge Orders: Discharge ED (Routine); Ordered 10/01/21 Ordered By: Alex Meier Referrals: Mary Mondragon MD [Primary Care Provider] - Discharge Diet: Usual diet Discharge Activity: Increase activity as tolerated Patient Instructions: COVID-19 (Coronavirus Disease 2019) (ED) Activity Restrictions/Additional Instructions: Drink plenty of water and fluids. Use acetaminophen or ibuprofen as needed for pain and fever. Most often the fever and symptoms start to resolve around day 5. The CDC recommends quarantine for the first 5 days and then after that to wear a mask for 10 days around other individuals. Monitor for worsening symptoms such as increased shortness of breath, chest pain, inability to hold fluids down, or new concerns; return to the ER for these issues. Coding Level of Care Code ED White Sugar Syrup Operator for Arash Fwd Exam Comprehensive
[2021-10-01 17:47] VITALS: BP 154/76; PULSE 76; RESP 16; TEMP 36.9; O2SAT 93
--- NOTE | 2021-10-01 18:05 | ECG_ITS ---
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 Measurements Intervals [place] Rate: 70 P: 128 CO: 194 QRS: -26 QRSD: 143 T: 45 QT: 461 QTc: 499 Interpretive Statements ELECTRONIC ATRIAL PACEMAKER BORDERLINE LEFT AXIS DEVIATION [QRS AXIS < -20] RIGHT BUNDLE BRANCH BLOCK [120+ ms QRS DURATION, UPRIGHT V1, 40+ ms S IN I/aVL/V4/V5/V6] Compared to ECG 06/01/2018 05:11:25 Right bundle-branch block now present Ventricular-paced complex(es) or rhythm no longer present Electronically Signed On 10-02-2021 6:16:39 CDT by Kaylee Trent M.D. [email or web address]
[2021-10-01 18:41] LABS: Add Urine Microscopic? NO; Charge for UA Resulting for Rev
[2021-10-01 18:47] VITALS: BP 173/72; PULSE 71; O2SAT 96
[2021-10-01 18:58] LABS: Bilirubin Urine Neg (Negative); Blood Urine Neg (Negative); Glucose Urine UA Norm (Normal); Ketones Urine Negative (Negative); Leukocyte Esterase Urine Negative (Negative); Nitrate Urine Negative (Negative); Protein Urine Neg (Negative); Urine Appearance SL Hazy (CLEAR); Urine Color Yellow (Yellow); Urobilinogen Urine Norm (Negative); pH Urine 5 (5-7)
[2021-10-01 19:11] LABS: Troponin T (5th) Once 9 ng/L (0-10)
[2021-10-01 19:21] VITALS: BP 178/79; PULSE 71; TEMP 36.8; O2SAT 99
[2021-10-01 19:22] LABS: Basophils % 0.4 %; Eosinophils # 0.1 10^3/uL (0.0-0.8); Eosinophils % 1.6 %; Hematocrit 42.8 % (37.0-47.0); Hemoglobin 13.4 g/dL (11.5-15.3); Lymphocytes # 1.6 10^3/uL (0.8-4.8); Lymphocytes % 29.7 %; Mean Corpuscular HGB Conc 31.3 g/dL (30.0-36.0); Mean Corpuscular Hemoglobin 28.6 pg (28.0-34.0); Mean Corpuscular Volume 91.5 fl (81-99); Mean Platelet Volume 10.7 fL (7.4-10.4); Monocytes % 18.9 %; Neutrophils # 2.68 10^3/uL (1.8-7.7); Nucleated Red Blood Cells % 0 %; Platelet Count 115 10^3/cmm (130-400); Red Blood Count 4.68 10^6/uL (4.1-5.3); Red Cell Distribution Width 14.1 % (12.1-15.1); White Blood Count 5.5 10^3/uL (4.0-10.0)
[2021-10-01 19:24] LABS: SARS Covid-2 Antigen Positive (Negative)
== END 2021-10-01 19:45 | disposition home or self-care (01) ==
PROVIDERS: Emergency Provider Nurse Practitioner Family; PCP Family Medicine
DX: U07.1 COVID-19 (principal); I10 Essential (primary) hypertension; E03.9 Hypothyroidism, unspecified; K21.9 Gastro-esophageal reflux disease without esophagitis; Z95.0 Presence of cardiac pacemaker; Z86.73 Personal history of transient ischemic attack (TIA), and cerebral infarction without residual deficits
CPT/HCPCS: 81003; 84484; 85025; 87426; 93005; 99284

== ENCOUNTER → 2021-12-25 11:03 | Outpatient (BNVA) | payer MEDICARE, SELFPAY | PROVIDERS: PCP Family Medicine; Visit Provider Nurse Practitioner Family | DX: I10 Essential (primary) hypertension (principal) | CPT/HCPCS: 80053 ==

== ENCOUNTER → 2022-01-11 11:40 | Outpatient (BNVA) | payer MEDICARE, SELFPAY | PROVIDERS: PCP Family Medicine; Visit Provider Nurse Practitioner Family | DX: R06.02 Shortness of breath (principal); M54.6 Pain in thoracic spine; Z98.890 Other specified postprocedural states | CPT/HCPCS: 71046; 72072 ==

== ENCOUNTER 2023-06-01 10:00 | Emergency (ER) | payer MEDICARE, SELFPAY ==
[2023-06-01 10:12] VITALS: BP 153/86; PULSE 83; RESP 17; TEMP 36.6; O2SAT 95; BMI 24.9
[2023-06-01 11:45] LABS: Basophils % 0.4 %; Eosinophils # 0.1 10^3/uL (0.0-0.8); Hematocrit 44.2 % (36-47); Lymphocytes # 2.7 10^3/uL (0.8-4.8); Lymphocytes % 26.7 %; Mean Corpuscular HGB Conc 31.9 g/dL (30-55); Mean Corpuscular Hemoglobin 28.4 pg (27-33); Mean Corpuscular Volume 89.1 fl (85-98); Mean Platelet Volume 9.5 fL (7.4-10.4); Neutrophils # 6.16 10^3/uL (1.8-7.7); Neutrophils % 61.6 %; Nucleated Red Blood Cells % 0 %; Platelet Count 258 10^3/cmm (157-399); Red Blood Count 4.96 10^6/uL (3.85-5.65); Red Cell Distribution Width 14.7 % (12.1-15.1)
[2023-06-01 12:01] LABS: INR 0.99 (0.8-1.2)
[2023-06-01 12:08] LABS: Alanine Aminotransferase 11 U/L (0-33); Albumin Level 3.8 g/dL (3.5-5.2); Alkaline Phosphatase 106 U/L (35-105); Anion Gap 13.2 (5-19); Aspartate Amino Transferase 21 U/L (0-32); Blood Urea Nitrogen 14 mg/dL (8-23); Calcium 9.3 mg/dL (8.5-10.5); Carbon Dioxide 28 mmol/L (22-29); Chloride 101 mmol/L (98-107); Creatinine Clr Calc Pharmacy 32.5754; Globulin 3.6 g/dL (1.3-4.6); Glucose 110 mg/dL (65-115); Osmolality Calculated 287 mOsm/kg (285-295); Potassium 4.2 mmol/L (3.5-5.1); Sodium 138 mmol/L (136-145); Total Bilirubin 0.4 mg/dL (0.15-1.2); Total Protein 7.4 g/dL (6.6-8.7)
--- NOTE | 2023-06-01 14:19 | ED_ITS ---
HPI - Abdominal Pain 2 General: Chief Complaint: Abdominal Pain Stated Complaint: rectal bleeding Time Seen by Provider: 06/01/23 14:18 History of Present Illness: 82-year-old female comes in today with s ome rectal bleeding. Patient reports about 1 month ago she strained and had some bleeding at that time. Patient reports it seemed to improve over 3 to 4 days. And then last night patient had a bowel movement that she did not have to strain but then had some blood in her stool last night and then this morning. Patient appears nontoxic. Patient appears in no acute distress. Patient reports no lightheadedness or dizziness. Patient reports no nausea or vomiting. Patient does have a history of hemorrhoids, hiatal hernia, hypertension, CVA, pacemaker insertion. Rectal exam noted some fresh blood in the rectum, and a reducible hemorrhoid externally. CBC and CMP were unremarkable. Hemoglobin was 14. Associated Symptoms: Reports hematochezia Review of Systems 2 General: Reports: 10 or more systems reviewed and unremarkable except in HPI and below GI: Reports: hematochezia PFSH ED 2 PFSH: Medical History GERD (gastroesophageal reflux disease) History of CVA (cerebrovascular accident) Hypertension Hypothyroidism Osteoporosis Pacemaker Traumatic compression fracture of eleventh thoracic vertebra Surgical History Aortic valve replaced H/O eye surgery H/O vaginal surgery H/O: hysterectomy History of ankle surgery History of knee replacement History of open heart surgery Hx of cataract surgery Hx of tonsillectomy S/P cholecystectomy Family History Mother Stroke Social History Smoking and tobacco/nicotine status: never used tobacco/nicotine Second hand smoke exposure: No Alcohol intake: current Alcohol intake frequency: holidays/special occasions only Substance/Drug Use: never Female Reproductive History: Para: 2 Spontaneous abortions: No Physical Exam 2 Const: COMMON NORMALS: alert HENMT: COMMON NORMALS: normocephalic HEAD & SCALP: normocephalic Neck/C-Spine: COMMON NORMALS: full ROM Resp: COMMON NORMALS: normal respiratory effort and clear to auscultation bilaterally EFFORT & INSPECTION: Yes able to speak in complete sentences A USCULTATION: clear to auscultation bilaterally GI: COMMON NORMALS: Soft to palpation and non-tender PALPATION: Yes Soft to palpation RECTAL EXAM: normal sphincter tone, heme positive stool and External hemorrhoid(s) present Back/Pelvis: COMMON NORMALS: thoracic and lumbar spine normal to inspection Extremity: COMMON NORMALS: normal to inspection Neuro: SENSORIUM/ORIENTATION: Yes alert Skin: COMMON NORMALS: turgor normal GENERAL SKIN EXAM: turgor normal Course 2 Vital Signs: Vital signs: Vital Signs Temperature 97.9 F 06/01/23 10:12 Pulse Rate 83 06/01/23 10:12 Respiratory Rate 17 06/01/23 10:12 Blood Pressure 153/86 06/01/23 10:12 Pulse Oximetry 95 06/01/23 10:12 Oxygen Delivery Me thod Room Air 06/01/23 10:12 MDM - Abdominal Pain Medical Decision Making 82-year-old female comes in today for complaints of blood in stool. Patient reports that she noticed blood in stool about a month ago after a hard stool then again last night. Patient appears nontoxic. Patient reports no lightheadedness or dizziness. Vital signs are normal. Differential diagnosis includes but not limited to carcinoma, hemorrhoid, anal fissure, anemia. CBC and CMP were unremarkable. CT of the abdomen pelvis noted inflammation in the lower colon with some diverticula that may suggest either colitis or a diverticulitis. Patient is stable. Patient appears in no pain. We will go ahead and start patient on Cipro and Flagyl and have her follow-up with surgeon for consultation and colonoscopy. Patient reported understanding and agreed to plan. Patient knows to return for high fever or worsening symptoms such as lightheadedness or severe pain. Lab Data 06/01/23 11:35 06/01/23 11:35 Labs/Radiology: Laboratory Results WBC 10.00 10^3/uL (3.29-11.43) 06/01/23 11:35 RBC 4.96 10^6/uL (3.85-5.65) 06/01/23 11:35 Hgb 14.10 g/dL (11.27-16.99) 06/01/23 11:35 Hct 44.2 % (36-47) 06/01/23 11:35 MCV 89.1 fl (85-98) 06/01/23 11:35 MCH 28.4 pg (27-33) 06/01/23 11:35 MCHC 31.9 g/dL (30-55) 06/01/23 11:35 RDW 14.7 % (12.1-15.1) 06/01/23 11:35 Plt Count 258 10^3/cmm (157-399) 06/01/23 11:35 MPV 9.5 fL (7.4-10.4) 06/01/23 11:35 Neut % (Auto) 61.6 % 06/01/23 11:35 Lymph % (Auto) 26.7 % 06/01/23 11:35 Grainger % (Auto) 10.0 % 06/01/23 11:35 Eos % (Auto) 1.0 % 06/01/23 11:35 Baso % (Auto) 0.4 % 06/01/23 11:35 Neut # (Auto) 6.16 10^3/uL (1.8-7.7) 06/01/23 11:35 Lymph # (Auto) 2.7 10^3/uL (0.8-4.8) 06/01/23 11:35 Grainger # (Auto) 1.0 10^3/uL (0.2-0.9) H 06/01/23 11:35 Eos # (Auto) 0.1 10^3/uL (0.0-0.8) 06/01/23 11:35 Baso # (Auto) 0.0 10^3/uL (0.0-0.1) 06/01/23 11:35 Nucleated RBC % (auto) 0 % 06/01/23 11:35 Nucleated RBCs # 0.0 /100WBC 06/01/23 11:35 PT 13.40 SECONDS (12.1-14.9) 06/01/23 11:35 INR 0.99 (0.8-1.2) 06/01/23 11:35 Sodium 138 mmol/L (136-145) 06/01/23 11:35 Potassium 4.2 mmol/L (3.5-5.1) 06/01/23 11:35 Chloride 101 mmol/L (98-107) 06/01/23 11:35 Carbon Dioxide 28 mmol/L (22-29) 06/01/23 11:35 Anion Gap 13.2 (5-19) 06/01/23 11:35 BUN 14 mg/dL (8-23) 06/01/23 11:35 Creatinine 1.2 mg/dL (0.5-0.9) H 06/01/23 11:35 GFR Calculation Not Reportable 06/01/23 11:35 Glucose 110 mg/dL (65-115) 06/01/23 11:35 Calculated Osmolality 287 mOsm/kg (285-295) 06/01/23 11:35 Calcium 9.3 mg/dL (8.5-10.5) 06/01/23 11:35 Total Bilirubin 0.4 mg/dL (0.15-1.2) 06/01/23 11:35 AST 21 U/L (0-32) 06/01/23 11:35 ALT 11 U/L (0-33) 06/01/23 11:35 Alkaline Phosphatase 106 U/L (35-105) H 06/01/23 11:35 Total Protein 7.4 g/dL (6.6-8.7) 06/01/23 11:35 Albumin 3.8 g/dL (3.5-5.2) 06/01/23 11:35 Globulin 3.6 g/dL (1.3-4.6) 06/01/23 11:35 All radiology interpretation(s) finalized by discharge Discharge Plan Discharge Patient Disposition: Home Clinical Impression: Blood in stool, Diverticulitis Condition: Stable Prescriptions: New ciprofloxacin HCl 500 mg tablet 500 mg PO BID Qty: 14 0RF metronidazole 500 mg tablet 500 mg PO BID Qty: 14 0RF No Action (DME) BD Eclipse Luer-Nirav 3 mL 23 x 1 syringe See Rx Instructions .Route Rx Instructions: As directed with B12 injection cyanocobalamin (vitamin B-12) 1,000 mcg/mL solution 1,000 mcg SUBCUT Q30D 300 Days Qty: 10 1RF Rx Instructions: with needles and syringe clopidogrel 75 mg tablet 75 mg PO DAILY 90 Days Qty: 90 1RF levothyroxine 125 mcg tablet 125 mcg PO DAILY 90 Days Qty: 90 1RF fluoxetine 20 mg capsule 40 mg PO DAILY 90 Days Qty: 180 1RF pantoprazole 40 mg tablet,delayed release (DR/EC) 40 mg PO BID 90 Days Qty: 180 1RF hydrochlorothiazide 12.5 mg tablet 12.5 mg PO QAM 90 Days Qty: 90 1RF cjnyetwx-zlvfoykrm-ZP 3.5-10,000-1 mg/mL-unit/mL-% solution 4 drp otic (ear) Q8H Qty: 10 1RF fluconazole 150 mg tablet 150 mg PO Q3D 0 Days Qty: 2 2RF Rx Instructions: may repeat second dose 72 hrs after first dose if symptoms persist amlodipine 2.5 mg tablet See Rx Instructions .ROUTE .COMPLEX Qty: 90 1RF Dose Instruction: TAKE ONE TABLET BY MOUTH DAILY Rx Instructions: TAKE ONE TABLET BY MOUTH DAILY losartan 50 mg tablet See Rx Instructions .ROUTE .COMPLEX Qty: 90 1RF Dose Instruction: TAKE ONE TABLET BY MOUTH DAILY Rx Instructions: TAKE ONE TABLET BY MOUTH DAILY sotalol [Sotalol AF] 160 mg tablet 160 mg PO BID@0800,2000 nitroglycerin 0.4 mg tablet, sublingual 0.4 mg sublingual Q5M MDD 3 PRN (Reason: Chest Pain) acetaminophen [Tylenol] 325 mg Tablet 3,250,650 mg PO QID PRN (Reason: Pain) Vitamin D3 (with calcium carb) 1 tab PO DAILY@0800 Discharge Orders: Discharge ED (Routine); Ordered 06/01/23 Ordered By: Alex Meier Discharge Diet: Usual diet Discharge Activity: Increase activity as tolerated Patient Instructions: Colitis (ED) Activity Restrictions/Additional Instructions: Case management will call you regarding follow-up with surgeon for colonoscopy and further evaluation. Return to ER for worsening symptoms such as fever greater than 100.4, severe pain, lightheadedness or feeling like going to pass out. Follow-up with primary care as needed. Coding Level of Care Code ED Agriculture Inspector for Arash Camara
--- NOTE | 2023-06-01 14:21 | CT_ITS ---
WS: [id number] CT ABDOMEN AND PELVIS WITH CONTRAST HISTORY: abd pain, blood in stool TECHNIQUE: Imaging performed of the abdomen and pelvis with IV contrast. Single phase imaging of the abdomen. Coronal and sagittal reformats are submitted. All CT scans at [facility] use at [facility] one of these dose optimization techniques: automated exposure control; mA and/or kV adjustment per patient size (includes targeted exams where dose is matched to clinical indication); or iterative re construction. IV CONTRAST: Omnipaque 350; 100 mL IV. Oral contrast: No DLP: 381.09 mGy.cm COMPARISON: 05/21/2020 Lower thorax: Lung bases are clear. Moderate cardiomegaly. Defibrillator wires. Sternotomy wires. Int rathoracic stomach. Liver/biliary system: Normal size with no intrahepatic dilatation. Gallbladder: Status post cholecystectomy. Pancreas: Normal size pancreas and pancreatic duct. No adjacent inflammation. Spleen: Normal size spleen. No mass or infarct. Adrenal glands: Normal. Right kidney: No obstruction. Left kidney: Moderate to severe atrophy. There is enhancement of the kidney. Aorta: Moderate atherosclerosis with no aneurysm. Atherosclerotic calcified plaque at the origin of t he SMA and celiac axis. No thrombus is identified or occlusion. The TAMMY is patent also. Lymphadenopathy: None. Free fluid: None. GI tract: No small bowel obstruction. Diffuse constipation. Circumferential wall thickening involving the sigmoid and descending colon. There is submucosal edema and a few scattered diverticula. No mass . No active bleeding site is identified. There is mild hyperemia at the rectum which may be the site of bleeding. No active arterial extravasation. There is mild inflammation adjacent to a prominent div erticulum involving the descending colon. Abdominal wall: Unremarkable abdominal wall. No hernia. Pelvis: Prior hysterectomy. Negative urinary bladder. Bones: Prior pubic rami fractures. Bilateral advanced degenerative changes at the hips, severe arthro chelo at the RIGHT hip joint and moderate on the LEFT. Increase in the lumbar lordosis. Numerous oste oporotic compression fractures in the lower thoracic spine including T10, T11 and T12 with vertebropl asty. IMPRESSION: 1. No free air. 2. Mild circumferential wall thickening involving the descending colon and sigmoid with mild pericol onic stranding and a few diverticula. Due to the long segment of involvement this may be ischemic or due to colitis. Focal superimposed diverticulitis is also suspected as there is inflammation adjacent to a diverticulum. 3. There is hyperemia and increased vascularity noted at the anorectal junction. This may be the sit e of bleeding. 4. Intrathoracic stomach.
[2023-06-01] MEDS: iohexol 350 mg/mL 500 mL Btl (per mL) IV (15:17)
[2023-06-01] MEDS: ciprofloxacin 500 mg Tablet PO (16:40)
[2023-06-01] MEDS: metroNIDAZOLE 500 MG Tablet PO (16:40)
[2023-06-01 16:44] VITALS: PULSE 78; O2SAT 96
== END 2023-06-01 16:45 | disposition home or self-care (01) ==
PROVIDERS: Internal Medicine; Emergency Provider Nurse Practitioner Family
DX: K57.33 Diverticulitis of large intestine without perforation or abscess with bleeding (principal); Z86.73 Personal history of transient ischemic attack (TIA), and cerebral infarction without residual deficits; I10 Essential (primary) hypertension; Z95.0 Presence of cardiac pacemaker; Z79.02 Long term (current) use of antithrombotics/antiplatelets
CPT/HCPCS: 36415; 74177; 80053; 85025; 85610; 99285; Q9967

== ENCOUNTER 2023-10-28 12:51 | Emergency (ER) | payer MEDICARE, SELFPAY ==
[2023-10-28] VITALS (8 sets, daily range): BP systolic 168–197; BP diastolic 89–111; PULSE 81–93; RESP 16–18; TEMP 36.9; O2SAT 94–98; BMI 26.7
[2023-10-28 13:32] LABS: Basophils % 0.5 %; Eosinophils # 0.1 10^3/uL (0.0-0.8); Eosinophils % 1.3 %; Hematocrit 41.9 % (36-47); Lymphocytes # 1.4 10^3/uL (0.8-4.8); Lymphocytes % 16.3 %; Mean Corpuscular Hemoglobin 28.3 pg (27-33); Mean Corpuscular Volume 88.6 fl (85-98); Mean Platelet Volume 9.3 fL (7.4-10.4); Monocytes # 0.6 10^3/uL (0.2-0.9); Monocytes % 7.2 %; Neutrophils # 6.25 10^3/uL (1.8-7.7); Neutrophils % 74.5 %; Nucleated Red Blood Cells % 0 %; Platelet Count 283 10^3/cmm (157-399); Red Blood Count 4.73 10^6/uL (3.85-5.65); Red Cell Distribution Width 14.5 % (12.1-15.1); White Blood Count 8.39 10^3/uL (3.29-11.43)
--- NOTE | 2023-10-28 13:36 | CT_ITS ---
WS: [id number] CT ABDOMEN AND PELVIS WITH CONTRAST HISTORY: left sided abdominal pain TECHNIQUE: Imaging performed of the abdomen and pelvis with IV contrast. Single phase imaging of the abdomen. Coronal and sagittal reformats are submitted. All CT scans at [facility] use at [facility] st one of these dose optimization techniques: automated exposure control; mA and/or kV adjustment per patient size (includes targeted exams where dose is matched to clinical indication); or iterative re construction. IV CONTRAST: Omnipaque 350; 100 mL IV. Oral contrast: No DLP: 452.59 mGy.cm COMPARISON: 06/01/2023 Lower thorax: Dependent changes and compressive atelectasis at the LEFT lung base. Marked enlargement of the heart with defibrillator and pacer wires. Median sternotomy. Aortic valve replacement. Large hiatal hernia with a large portion of the stomach in the thorax. Liver/biliary system: Normal size with no intrahepatic dilatation. Gallbladder: Status post cholecystectomy. Pancreas: Normal common bile duct and the pancreatic head. There is a cystic structure near the uncin ate process which has not been present on prior studies. Cystic area measures 2.1 x 1.1 cm. Different ial includes cystic neoplasm, IPMN and less likely pseudocyst. Spleen: Normal size spleen. No mass or infarct. Adrenal glands: Normal. Right kidney: No acute finding. Left kidney: Atrophied. There is still cortical enhancement. No obstruction. Aorta: Moderate atherosclerosis with no aneurysm. Dense atherosclerotic calcification and ectasia. Lymphadenopathy: None. Free fluid: None. GI tract: No small bowel obstruction. No colon obstruction. No colitis. No pneumatosis or nonenhancem ent. Abdominal wall: Unremarkable abdominal wall. No hernia. Pelvis: Atherosclerosis iliac arteries. There is no free fluid. Normal urinary bladder. Bones: RIGHT hip arthroplasty with significant artifact. Advanced degenerative changes LEFT hip joint . Prior vertebral plasties T10, T11 and T12. CT/CT abdomen pelvis w con* [id number] IMPRESSION: 1. No GI tract obstruction or acute diverticulitis. 2. Large hiatal hernia. Nearly the entire stomach is intrathoracic. 3. Severe atrophy LEFT kidney, nonacute. No renal obstruction. 4. New cystic collection near the uncinate process of the pancreas. Indetermin ate. Could be cystic neoplasm or IPMN. The small collection measures 2.1 x 1.1 cm. Recommend follow-up CT abdomen and pelvis with IV and oral contrast in 3 to 4 months.
--- NOTE | 2023-10-28 13:47 | ED_ITS ---
HPI - Abdominal Pain 2 General: Chief Complaint: Abdominal Pain Stated Complaint: abd pains Time Seen by Provider: 10/28/23 13:15 History of Present Illness: 82-year-old female presents emergency de partment chief complaint of ongoing left-sided abdominal pain has been progressing worse in the last 3 to 4 days patient Dors that she is recent saw her primary care doctor that diagnosed her with presumed diverticulitis patient has been on some antibiotics since patient reports increased pain located to her lower abdomen particular in the lower left side as well as suprapubic region patient endorses moderate nausea the pain does come and go in waves she denies any fevers does report some chills at home patient reports no other associated symptoms. Associated Symptoms: Reports chills, constipation and nausea; Denies fever(s) and vomiting Related Data Home Medications Medication Instructions Recorded Confirmed Vitamin D3 (with calcium carb) 1 tab PO DAILY@0800 05/21/20 10/28/23 nitroglycerin 0.4 mg sublingual 0.4 mg sublingual Q5M PRN Chest 05/21/20 10/28/23 tablet Pain syringe with needle 3 mL 23 x 1 07/25/20 10/28/23 (BD Eclipse Luer-Nirav) amlodipine 2.5 mg tablet 2.5 mg PO DAILY 10/28/23 10/28/23 amoxicillin 875 mg-potassium 1 tab PO BID 10/28/23 10/28/23 clavulanate 125 mg tablet betamethasone dipropionate 0.05 % 1 applic topical 2XD 10/28/23 10/28/23 topical ointment famotidine 40 mg tablet 40 mg PO BID PRN Acid Reflux 10/28/23 10/28/23 gabapentin 300 mg capsule 300 mg PO QPM 10/28/23 10/28/23 hydrocodone 5 mg-acetaminophen 325 1 tab PO QID PRN Pain 10/28/23 10/28/23 mg tablet prednisone 5 mg tablet 5 mg PO DAILY 10/28/23 10/28/23 propafenone 150 mg tablet 150 mg PO TID 10/28/23 10/28/23 triamcinolone acetonide 0.1 % 1 applic dental BID 10/28/23 10/28/23 dental paste Previous Rx's Medication Instructions Recorded levothyroxine 125 mcg tablet 125 mcg PO DAILY 90 days #90 tabs 01/20/22 Allergies Allergy/AdvReac Type Severity Reaction Status Date / Time LAURENT Inhibitors Allergy Unknown Unkown Verified 10/28/23 13:06 ezetimibe Allergy Unknown Unknown Verified 10/28/23 13:06 codeine Allergy ADR-Headach Verified 10/28/23 13:06 e COVID-19 vaccine, Allergy hives Verified 10/28/23 13:06 recombinant (Nova [From Novavax COVID19 Vac,Adj(Unapp)] Rqxscci-WWU-JqH Reductase Allergy ADV-Weaknes Verified 10/28/23 13:06 Inhibitor s [Njpjpss-Qja-Kre Reductase Inhibitor] vaccine adjuvant system, Allergy hives Verified 10/28/23 13:06 ISCOM-Matrix [From Novavax COVID19 Vac,Adj(Unapp)] Review of Systems 2 General: Reports: 10 or more systems reviewed and unremarkable except in HPI and below Const: Reports: chills and fatigue; Denies: fever(s) or malaise Eyes: Denies: change in vision or blurry vision Card: Denies: chest pain or palpitations Resp: Denies: dyspnea or productive cough GI: Reports: abdominal pain, nausea and constipation; Denies: vomiting : Denies: flank pain Musc: Denies: extremity pain or extremity swelling Skin/Breast: Denies: rash or pruritus Neuro: Denies: headache(s) Psych: Denies: anxiety or depression Carlito/Lymph: Denies: easy bleeding All/Imm: Denies: urticaria, throat swelling or facial swelling PFSH ED 2 PFSH: Medical History Osteoporosis Traumatic compression fracture of eleventh thoracic vertebra History of CVA (cerebrovascular accident) GERD (gastroesophageal reflux disease) Hypothyroidism Hypertension Pacemaker Surgical History Aortic valve replaced H/O eye surgery Hx of cataract surgery Hx of tonsillectomy S/P cholecystectomy History of open heart surgery H/O: hysterectomy H/O vaginal surgery History of knee replacement History of ankle surgery Family History Mother Stroke Social History Smoking and tobacco/nicotine status: never used tobacco/nicotine Second hand smoke exposure: No Alcohol intake: current Alcohol intake frequency: holidays/special occasions only Substance/Drug Use: never Female Reproductive History: Para: 2 Spontaneous abortions: No Physical Exam 2 Const: COMMON NORMALS: no acute distress, patient oriented x3 and healthy appearing (Patient appears nontoxic afebrile on exam.) HENMT: COMMON NORMALS: normocephalic and atraumatic HEAD & SCALP: n ormocephalic and atraumatic Eye: COMMON NORMALS: Equal, round and reactive pupils present and EOMs intact bilaterally PUPIL: Yes Equal, round and reactive pupils present Neck/C-Spine: COMMON NORMALS: full ROM, supple and no JVD Lymph: LYMPHATIC: no lymphadenopathy noted Chest: COMMONS NORMALS: normal inspection of the chest and normal palpation of entire chest wall Resp: COMMON NORMALS: normal respiratory effort, No retractions and clear to auscultation bilaterally EFFORT & INSPECTION: Yes able to speak in complete sentences and Yes symmetric chest movement AUSCULTATION: clear to auscultation bilaterally Cardio: COMMON NORMALS: no JVD, regular rate and regular rhythm RATE: r egular rate RHYTHM: regular rhythm GI: COMMON NORMALS: Normal to inspection, nondistended, normoactive bowel sounds present; negative for Soft to palpation and negative for non-tender INSPECTION: Yes normal to inspection PALPATION: No Soft to palpation OTHER: Mild pain to palpation located to the left lower abdomen otherwise soft nontender no guarding or rebound appreciated : COMMON NORMALS: Yes no CVA tenderness BLADDER/KIDNEY EXAM: Yes no CVA tenderness Back/Pelvis: COMMON NORMALS: no CVA tenderness Extremity: COMMON NORMALS: normal to inspection and full ROM Neuro: COMMON NORMALS: patient oriented x3, CN's II-XII intact bilaterally, moves all extremities and no focal motor deficits Psych: COMMON NORMALS: mental status grossly normal, Normal thought process present, cooperative and normal affect THOUGHT PROCESS: Normal thought process present Skin: COMMON NORMALS: no rashes or lesions noted GENERAL SKIN EXAM: no rashes or lesions noted Course 2 Vital Signs: Vital signs: Vital Signs Temperature 98.4 F 10/28/23 13:03 Pulse Rate 83 10/28/23 17:00 Respiratory Rate 18 10/28/23 13:03 Blood Pressure 187/97 10/28/23 17:00 Pulse Oximetry 95 10/28/23 17:00 Oxygen Delivery Me thod Room Air 10/28/23 16:30 MDM - Abdominal Pain Medical Decision Making Due to patient's symptoms and condition an IV will be established basic lab work and imaging will be obtained patient will be provided IV off her for her increased pain will continue to follow. Patient's CAT scan came back unremarkable except for revealing a pancreatic cyst for which radiology was recommending repeat scan in 3 to 4 months as this could be early pancreatic cystic cancer versus IPMN patient was advised these findings as well as her son present no obvious diverticular disease was present with good patient his lab work came back unremarkable patient was found to have a significant a large hiatal hernia which I cannot help with think may be contributing to her current symptoms. Patient is stable for discharge home patient already has hydrocodone at home advised her to break them in half and take half to 1 tablet as needed for breakthrough pain and or discomfort she was not found to have any obvious obstructions or other concerning findings patient advised return the interim if any of her symptoms persist or worse Lab Data 10/28/23 13:27 10/28/23 13:27 Labs/Radiology: Radiology Impressions Abdomen/Pelvis CT 10/28/23 13:36 IMPRESSION: 1. No GI tract obstruction or acute diverticulitis. 2. Large hiatal hernia. Nearly the entire stomach is intrathoracic. 3. Severe atrophy LEFT kidney, nonacute. No renal obstruction. 4. New cystic collection near the uncinate process of the pancreas. Indeterminate. Could be cystic neoplasm or IPMN. The small collection measures 2.1 x 1.1 cm. Recommend follow-up CT abdomen and pelvis with IV and oral contrast in 3 to 4 months. Laboratory Results WBC 8.39 10^3/uL (3.29-11.43) 10/28/23 13:27 RBC 4.73 10^6/uL (3.85-5.65) 10/28/23 13:27 Hgb 13.40 g/dL (11.27-16.99) 10/28/23 13:27 Hct 41.9 % (36-47) 10/28/23 13:27 MCV 88.6 fl (85-98) 10/28/23 13:27 MCH 28.3 pg (27-33) 10/28/23 13:27 MCHC 32.0 g/dL (30-55) 10/28/23 13:27 RDW 14.5 % (12.1-15.1) 10/28/23 13:27 Plt Count 283 10^3/cmm (157-399) 10/28/23 13:27 MPV 9.3 fL (7.4-10.4) 10/28/23 13:27 Neut % (Auto) 74.5 % 10/28/23 13:27 Lymph % (Auto) 16.3 % 10/28/23 13:27 [place] % (Auto) 7.2 % 10/28/23 13:27 Eos % (Auto) 1.3 % 10/28/23 13:27 Baso % (Auto) 0.5 % 10/28/23 13:27 Neut # (Auto) 6.25 10^3/uL (1.8-7.7) 10/28/23 13:27 Lymph # (Auto) 1.4 10^3/uL (0.8-4.8) 10/28/23 13:27 [place] # (Auto) 0.6 10^3/uL (0.2-0.9) 10/28/23 13:27 Eos # (Auto) 0.1 10^3/uL (0.0-0.8) 10/28/23 13:27 Baso # (Auto) 0.0 10^3/uL (0.0-0.1) 10/28/23 13:27 Nucleated RBC % (auto) 0 % 10/28/23 13:27 Nucleated RBCs # 0.0 /100WBC 10/28/23 13:27 Sodium 135 mmol/L (136-145) L 10/28/23 13:27 Potassium 3.9 mmol/L (3.5-5.1) 10/28/23 13:27 Chloride 96 mmol/L (98-107) L 10/28/23 13:27 Carbon Dioxide 28 mmol/L (22-29) 10/28/23 13:27 Anion Gap 14.9 (5-19) 10/28/23 13:27 BUN 15 mg/dL (8-23) 10/28/23 13:27 Creatinine 1.2 mg/dL (0.5-0.9) H 10/28/23 13:27 GFR Calculation Not Reportable 10/28/23 13:27 Glucose 112 mg/dL (65-115) 10/28/23 13:27 Calculated Osmolality 282 mOsm/kg (285-295) L 10/28/23 13:27 Lactic Acid 1.6 mmol/L (0.5-2.2) 10/28/23 13:32 Calcium 9.3 mg/dL (8.5-10.5) 10/28/23 13:27 Total Bilirubin 0.4 mg/dL (0.15-1.2) 10/28/23 13:27 AST 18 U/L (0-32) 10/28/23 13:27 ALT 10 U/L (0-33) 10/28/23 13:27 Alkaline Phosphatase 152 U/L (35-105) H 10/28/23 13:27 C-Reactive Protein 20.3 mg/L (0.0-4.9) H 10/28/23 13:32 Total Protein 7.6 g/dL (6.6-8.7) 10/28/23 13:27 Albumin 4.2 g/dL (3.5-5.2) 10/28/23 13:27 Globulin 3.4 g/dL (1.3-4.6) 10/28/23 13:27 Urine Color Yellow (Yellow) 10/28/23 13:42 Urine Appearance Clear (CLEAR) 10/28/23 13:42 Urine pH 6.5 (5-7) 10/28/23 13:42 Ur Specific [place] 1.013 (1.005-1.030) 10/28/23 13:42 Urine Protein Negative (Negative) 10/28/23 13:42 Urine Glucose (UA) Negative (Normal) 10/28/23 13:42 Urine Ketones Negative (Negative) 10/28/23 13:42 Urine Blood Negative (Negative) 10/28/23 13:42 Urine Nitrate Negative (Negative) 10/28/23 13:42 Urine Bilirubin Negative (Negative) 10/28/23 13:42 Urine Urobilinogen 0.2 mg/dL (Negative) 10/28/23 13:42 Ur Leukocyte Esterase Negative (Negative) 10/28/23 13:42 Urine RBC 0-2 /hpf (0-2) 10/28/23 13:42 Urine WBC 0-5 /hpf (0-5) 10/28/23 13:42 Ur Squamous Epith Cells 6-10 /hpf (0-5) 10/28/23 13:42 Amorphous Sediment Not Reportable 10/28/23 13:42 Urine Bacteria None seen /hpf (NONE) 10/28/23 13:42 Hyaline Casts 0-4 /lpf H 10/28/23 13:42 All radiology interpretation(s) finalized by discharge Discharge Plan Discharge Patient Disposition: Home Clinical Impression: Pancreas cyst, Abdominal pain, acute, left lower quadrant, Intermittent constipation Condition: Stable Prescriptions: No Action (DME) BD Eclipse Luer-Nirav 3 mL 23 x 1 syringe See Rx Instructions .Route Rx Instructions: As directed with B12 injection levothyroxine 125 mcg tablet 125 mcg PO DAILY 90 Days Qty: 90 1RF nitroglycerin 0.4 mg tablet, sublingual 0.4 mg sublingual Q5M MDD 3 PRN (Reason: Chest Pain) Vitamin D3 (with calcium carb) 1 tab PO DAILY@0800 propafenone 150 mg tablet 150 mg PO TID hydrocodone-acetaminophen 5-325 mg tablet 1 tab PO QID PRN (Reason: Pain) famotidine 40 mg tablet 40 mg PO BID PRN (Reason: Acid Reflux) prednisone 5 mg tablet 5 mg PO DAILY triamcinolone acetonide 0.1 % paste 1 applic dental BID gabapentin 300 mg capsule 300 mg PO QPM betamethasone dipropionate 0.05 % ointment 1 applic TOPICAL 2XD amoxicillin-pot clavulanate 875-125 mg tablet 1 tab PO BID amlodipine 2.5 mg tablet 2.5 mg PO DAILY Discharge Orders: Discharge ED (Routine); Ordered 10/28/23 Ordered By: Orlin Gutierrez Discharge Diet: Advance as tolerated Discharge Activity: Increase activity as tolerated Patient Instructions: Abdominal Pain (ED), Opioid Safety, Pain Management Activity Restrictions/Additional Instructions: Please further follow-up your primary care doctor have your films and information referred over to your primary care doctor to have a repeat CAT scan with IV contrast evaluating the pancreatic cyst that you were found to have on your current scan nothing alarming was found to be in your left lower abdomen no recent kidney stones that had passed or blockages or any other acute additional concerns you can use [id number] medications stool bulking agents to help facilitate your constipation please return the interim if any of your symptoms persist or worsen Coding Level of Care Code ED Coordinate Measuring Machine 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
[2023-10-28 13:51] LABS: Alanine Aminotransferase 10 U/L (0-33); Albumin Level 4.2 g/dL (3.5-5.2); Alkaline Phosphatase 152 U/L (35-105); Anion Gap 14.9 (5-19); Aspartate Amino Transferase 18 U/L (0-32); Blood Urea Nitrogen 15 mg/dL (8-23); Calcium 9.3 mg/dL (8.5-10.5); Carbon Dioxide 28 mmol/L (22-29); Chloride 96 mmol/L (98-107); Creatinine Clr Calc Pharmacy 33.6748; Globulin 3.4 g/dL (1.3-4.6); Glucose 112 mg/dL (65-115); Osmolality Calculated 282 mOsm/kg (285-295); Potassium 3.9 mmol/L (3.5-5.1); Sodium 135 mmol/L (136-145); Total Bilirubin 0.4 mg/dL (0.15-1.2); Total Protein 7.6 g/dL (6.6-8.7)
[2023-10-28] MEDS: sodium chloride 0.9% 500 ML IV (14:04)
[2023-10-28 14:06] LABS: Lactic Sepsis W/Reflex 1.6 mmol/L (0.5-2.2)
[2023-10-28 14:07] LABS: C Reactive Protein 20.3 mg/L (0.0-4.9)
[2023-10-28] MEDS: acetaminophen 1,000 MG/100 ML PIGGYBACK 400 MG IV (14:07)
[2023-10-28 14:10] LABS: Bilirubin Urine Negative (Negative); Blood Urine Negative (Negative); Glucose Urine UA Negative (Normal); Ketones Urine Negative (Negative); Leukocyte Esterase Urine Negative (Negative); Nitrate Urine Negative (Negative); Protein Urine Negative (Negative); Specific Gravity, Urine 1.013 (1.005-1.030); Urine Appearance Clear (CLEAR); Urine Color Yellow (Yellow); Urobilinogen Urine 0.2 mg/dL (Negative); pH Urine 6.5 (5-7)
[2023-10-28 14:12] LABS: Add Urine Microscopic? YES; Bacteria Urine None Seen /hpf; Hyaline Casts Urine 0-4 /lpf; RBC Urine 0-2 /hpf (0-2); WBC Urine 0-5 /hpf (0-5)
[2023-10-28] MEDS: iohexol 350 mg/mL 500 mL Btl (per mL) IV (14:31)
[2023-10-28] MEDS: hyDRALAzine 20 mg/mL INJ 1 mL 5 MG IVP (17:51)
--- NOTE | 2023-10-28 19:19 | PC.NURSE ---
@1740- went to d/c patient and pt found to have elevated bp of 199/98 and c/o blurred vision. Dr barnhart notified and patient given IVP Hydralazine for bp. 30 mins later- pt reports that her vision has improved, bp down to 173/94. Pt to track bp and follow up with pcp. return to er with concerns/
== END 2023-10-28 19:26 | disposition home or self-care (01) ==
PROVIDERS: Emergency Medicine; Emergency Provider Emergency Medicine
DX: K86.2 Cyst of pancreas (principal); R10.32 Left lower quadrant pain; K59.09 Other constipation; Z86.73 Personal history of transient ischemic attack (TIA), and cerebral infarction without residual deficits; I10 Essential (primary) hypertension; Z95.0 Presence of cardiac pacemaker
CPT/HCPCS: 74177; 80053; 81001; 83605; 85025; 86140; 96365; 96366; 96375; 99285; J0131; J0360; J7040

== ENCOUNTER → 2024-02-15 10:14 | Outpatient (BNVA) | payer MEDICARE, SELFPAY | PROVIDERS: Referring Provider Family Medicine; Visit Provider Nurse Practitioner Family | DX: D18.01 Hemangioma of skin and subcutaneous tissue (principal); L81.4 Other melanin hyperpigmentation; L57.8 Other skin changes due to chronic exposure to nonionizing radiation; L82.0 Inflamed seborrheic keratosis; R20.8 Other disturbances of skin sensation; L29.89 Other pruritus; L53.8 Other specified erythematous conditions; L57.0 Actinic keratosis | CPT/HCPCS: 17000; 17110; 99203 ==

== ENCOUNTER 2024-02-24 09:48 | Outpatient (CLI) | payer MEDICARE, SELFPAY ==
--- NOTE | 2024-02-24 09:50 | CTR_ITS ---
PROCEDURE INFORMATION: Exam: CT Abdomen And Pelvis Without And With Contrast Exam date and time: 02/24/2024 11:01 AM Age: 83 years old Clinical indication: Condition or disease; Pancreatic condition; Cyst; Prior surgery; Surgery date: 6+ months; Surgery type: Bladder sling, hyst, gb, RT hip, aortic valve x 2, ; additional info: Pancreatic cyst TECHNIQUE: Imaging protocol: Computed tomography of the abdomen and pelvis without and with contrast. Radiation optimization: All CT scans at this facility use at least one of these dose optimization techniques: automated exposure control; mA and/or kV adjustment per patient size (includes targeted exams where dose is matched to clinical indication); or iterative reconstruction. Contrast material: OMNI 350; Contrast volume: 100 ml; Contrast route: INTRAVENOUS (IV); COMPARISON: CT abdomen pelvis w con* [id number] 10/28/2023 2:26 PM RADIATION DOSE METRICS: Total DLP (mGy-cm): 893.14 FINDINGS: Lungs: Similar left basilar atelectasis/scarring. Calcified granuloma in the right lung base. Mild atelectasis/scarring in the right lung base. Heart: Cardiac pacing leads partially imaged. Mitral annular calcifications. Liver: Normal. No mass. Gallbladder and biliary ducts: Status post cholecystectomy. Mildly dilated common bile duct is similar to prior and is likely related to reservoir effect from cholecystectomy. Pancreas: No significant interval change in an approximate 2.1 x 1.1 cm hypodensity along the uncinate process of the pancreas without abnormal enhancement or other suspicious features. 1.1 x 0.7 cm hypodensity within the body of the pancreas appears more conspicuous than prior (series 10 image 50). No pancreatic ductal dilatation. Spleen: Normal. No splenomegaly. Adrenal glands: Similar mild adrenal thickening, [id number]. No discrete nodule. Kidneys and ureters: Atrophic appearing left kidney with multifocal cortical scarring. No hydronephrosis. Stomach and bowel: Redemonstrated large hiatal hernia containing nearly the entirety of the stomach. No bowel obstruction. Appendix: No evidence of appendicitis. Intraperitoneal space: Unremarkable. No free air. No significant fluid collection. Vasculature: Moderate diffuse atherosclerotic aortoiliac calcifications. No aortic aneurysm. Lymph nodes: Unremarkable. No enlarged lymph nodes. Urinary bladder: Unremarkable as visualized. Reproductive: Status post hysterectomy. Bones/joints: Median sternotomy with aortic valve replacement. Right total hip arthroplasty appears intact within the field of view. A least moderate degenerative changes of the left hip. Redemonstrated vertebral augmentation at T10, T11 and T12. Similar chronic compression deformity at L1. Multilevel degenerative changes of the visualized spine. Diffuse osseous demineralization. Soft tissues: Unremarkable. CT/CT abdomen pelvis wo/w [id number] IMPRESSION: 1. No significant interval change in an ill-defined hypodense lesion in the uncinate process of the pancreas measuring up to 2.1 cm. An additional 1.1 cm lesion in the body of the pancreas with similar imaging features appears more conspicuous than prior. These lesions may represent IPMNs but are not fully characterized. No definite suspicious features. Reimaging every 2 years for 4 years is recommended. (Reference: Fang, 2017) 2. Similar large hiatal hernia containing nearly the entirety of the stomach. 3. Remainder stable. REFERENCES: Fang BARBOSA, et al. Management of Incidental Pancreatic Cysts: A White Paper of the ACR Incidental Findings Committee. J Am Heydi Radiol. 2017;14(7):911-923.
[2024-02-24] MEDS: iohexol 350 mg/mL 500 mL Btl (per mL) PO (11:22)
[2024-02-24] MEDS: iohexol 350 mg/mL 500 mL Btl (per mL) IV (11:22)
[2024-02-24 11:25] LABS: Blood Urea Nitrogen 13 mg/dL (8-23)
== END 2024-02-24 09:49 | disposition home or self-care (01) ==
LOC: RAD 09:49
PROVIDERS: Radiology Diagnostic Radiology; PCP Family Medicine; Visit Provider Family Medicine
DX: K86.2 Cyst of pancreas (principal); K44.9 Diaphragmatic hernia without obstruction or gangrene; J98.11 Atelectasis; J84.10 Pulmonary fibrosis, unspecified; J98.4 Other disorders of lung; Z90.49 Acquired absence of other specified parts of digestive tract; R93.3 Abnormal findings on diagnostic imaging of other parts of digestive tract; R93.89 Abnormal findings on diagnostic imaging of other specified body structures; R93.422 Abnormal radiologic findings on diagnostic imaging of left kidney; I25.10 Atherosclerotic heart disease of native coronary artery without angina pectoris; Z90.710 Acquired absence of both cervix and uterus; Z98.890 Other specified postprocedural states; M43.8X6 Other specified deforming dorsopathies, lumbar region; M47.9 Spondylosis, unspecified; M81.0 Age-related osteoporosis without current pathological fracture
CPT/HCPCS: 74178; 82565; 84520

== ENCOUNTER 2024-06-09 10:04 | Emergency (ER) | payer MEDICARE, SELFPAY ==
[2024-06-09 10:11] VITALS: BP 150/105; PULSE 83; RESP 18; O2SAT 95; BMI 24.9
--- NOTE | 2024-06-09 10:37 | W.ED.EAR ---
HPI - Ear Problem General: Chief complaint: Ear Stated complaint: right ear pain Time Seen by Provider: 06/09/24 10:10 History of Present Illness: 83-year-old female presents with right ear pain has been gone for couple days. She reports the ear and around is very tender. She reports that she is having a hard time hearing out of it. Also has little bit of a mild cough and congestion. Associated symptoms: Reports ear or mastoid pain; Denies fever(s) Related Data Home Medications ?Medication ?Instructions ?Recorded ?Confirmed amlodipine 5 mg tablet 5 mg PO DAILY 06/09/24 06/09/24 cyanocobalamin (vitamin B-12) 1,000 mcg IM Q30D 06/09/24 06/09/24 1,000 mcg/mL injection solution famotidine 40 mg tablet 40 mg PO DAILY 06/09/24 06/09/24 hydroxyzine HCl 25 mg tablet 25 mg PO Q8H 06/09/24 06/09/24 isosorbide mononitrate 30 mg 30 mg PO QAM 06/09/24 06/09/24 tablet,extended release 24 hr levothyroxine 125 mcg tablet 125 mcg PO DAILY 06/09/24 06/09/24 propafenone 150 mg tablet 150 mg PO Q8H 06/09/24 06/09/24 sertraline 25 mg tablet 25 mg PO DAILY 06/09/24 06/09/24 Previous Rx's ?Medication ?Instructions ?Recorded ciprofloxacin 0.3 %-dexamethasone 4 drp otic (ear) BID 7 days #7.5 mL 06/09/24 0.1 % ear drops,suspension Allergies Allergy/AdvReac Type Severity Reaction Status Date / Time LAURENT Inhibitors Allergy Unknown Unkown Verified 10/28/23 13:06 ezetimibe Allergy Unknown Unknown Verified 10/28/23 13:06 codeine Allergy ADR-Headach Verified 10/28/23 13:06 e COVID-19 vaccine, Allergy hives Verified 10/28/23 13:06 recombinant (Nova (From Novavax COVID19 Vac,Adj(Unapp)) Vwxbjbn-MCB-AeD Reductase Allergy ADV-Weaknes Verified 10/28/23 13:06 Inhibitor (Bxlnupl-New-Ecg s Reductase Inhibitor) vaccine adjuvant system, Allergy hives Verified 10/28/23 13:06 ISCOM-Matrix (From Novavax COVID19 Vac,Adj(Unapp)) Review of Systems Const: Denies: fever(s) ENMT: Reports: ear or mastoid pain and nasal congestion Card: Denies: chest pain or palpitations Resp: Reports: non-productive cough Skin/Breast: Denies: rash PFSH ED PFSH: Medical History Osteoporosis Traumatic compression fracture of eleventh thoracic vertebra History of CVA (cerebrovascular accident) GERD (gastroesophageal reflux disease) Hypothyroidism Hypertension Pacemaker Surgical History Aortic valve replaced H/O eye surgery Hx of cataract surgery Hx of tonsillectomy S/P cholecystectomy History of open heart surgery H/O: hysterectomy H/O vaginal surgery History of knee replacement History of ankle surgery Family History Mother Stroke Social History Smoking and tobacco/nicotine status: never used tobacco/nicotine Second hand smoke exposure: No Alcohol intake: current Alcohol intake frequency: holidays/special occasions only Substance/Drug Use: never Female Reproductive History: Para: 2 Spontaneous abortions: No Physical Exam Const: COMMON NORMALS: no acute distress, average body habitus, patient oriented x3 and no limitations HENMT: EXTERNAL EAR: Yes external ear abnormal Abnormal external ear present: auricular tenderness EXTERNAL AUDITORY CANAL: Abnormal EAC present EAC laterality: right Details: cerumen impaction and edema Resp: COMMON NORMALS: normal respiratory effort, No use of accessory muscles and clear to auscultation bilaterally AUSCULTATION: clear to auscultation bilaterally Cardio: COMMON NORMALS: regular rate and regular rhythm RATE: regular rate RHYTHM: regular rhythm Neuro: COMMON NORMALS: patient oriented x3 Skin: COMMON NORMALS: no rashes or lesions noted and turgor normal GENERAL SKIN EXAM: no rashes or lesions noted and turgor normal Course Vital Signs: Vital signs: Vital Signs Pulse Rate 83 06/09/24 10:11 Respiratory Rate 18 06/09/24 10:11 Blood Pressure 150/105 06/09/24 10:11 Pulse Oximetry 95 06/09/24 10:11 Oxygen Delivery Me thod Room Air 06/09/24 10:11 MDM - Ear Medical Decision Making Patient with some mild cerumen impaction and sore swelling/edema of the right external ear canal. I did flush some cerumen out but continue to have some mild edema consistent with some otitis externa. Patient will be started on Ciprodex for otitis externa. Also recommend she continue her nasal steroid and start Zyrtec. Patient was stable and discharged home No radiology studies performed this visit Discharge Plan Discharge Patient Disposition: Home Clinical Impression: Otitis externa Condition: Stable Prescriptions: New ciprofloxacin-dexamethasone 0.3-0.1 % drops,suspension 4 drp otic (ear) BID 7 Days Qty: 7.5 0RF No Action propafenone 150 mg tablet 150 mg PO Q8H famotidine 40 mg tablet 40 mg PO DAILY isosorbide mononitrate 30 mg tablet extended release 24 hr 30 mg PO QAM amlodipine 5 mg tablet 5 mg PO DAILY cyanocobalamin (vitamin B-12) 1,000 mcg/mL solution 1,000 mcg IM Q30D levothyroxine 125 mcg tablet 125 mcg PO DAILY sertraline 25 mg tablet 25 mg PO DAILY hydroxyzine HCl 25 mg tablet 25 mg PO Q8H Discharge Orders: Discharge ED (Routine); Ordered 06/09/24 Ordered By: Rafa Ochoa Referrals: Eliseo Leigh MD [Primary Care Provider, Family Practice] Discharge Diet: Usual diet Discharge Activity: Resume usual activity Patient Instructions: Opioid Safety, Pain Management, Otitis Externa - Adult Activity Restrictions/Additional Instructions: Please use eardrops as prescribed. Please follow-up with your primary care provider Tuesday or Tuesday of next week for a recheck. If you continue to have issues please consider a ENT consultation. Print Language: Burundian Coding Level of Care Code ED Coat Checker for Arash Camara
[2024-06-09 10:56] VITALS: BP 176/82; PULSE 78; O2SAT 98
== END 2024-06-09 11:02 | disposition home or self-care (01) ==
PROVIDERS: Emergency Provider Student in an Organized Health Care Education/Training Program; PCP Family Medicine
DX: H60.91 Unspecified otitis externa, right ear (principal); Z95.0 Presence of cardiac pacemaker; Z86.73 Personal history of transient ischemic attack (TIA), and cerebral infarction without residual deficits; I10 Essential (primary) hypertension
CPT/HCPCS: 99283

== ENCOUNTER → 2024-07-05 10:50 | Outpatient (BNVA) | payer MEDICARE, SELFPAY | PROVIDERS: PCP Family Medicine; Visit Provider Nurse Practitioner Family | DX: R59.0 Localized enlarged lymph nodes (principal); L81.4 Other melanin hyperpigmentation; D18.01 Hemangioma of skin and subcutaneous tissue; L57.8 Other skin changes due to chronic exposure to nonionizing radiation; L29.9 Pruritus, unspecified; L82.0 Inflamed seborrheic keratosis; L29.89 Other pruritus; R20.9 Unspecified disturbances of skin sensation; R20.8 Other disturbances of skin sensation; L53.8 Other specified erythematous conditions; B07.8 Other viral warts; R23.8 Other skin changes | CPT/HCPCS: 11104; 17000; 17110; 99213 ==

== ENCOUNTER → 2024-07-17 10:54 | Outpatient (BNVA) | payer MEDICARE, SELFPAY | PROVIDERS: PCP Family Medicine; Visit Provider Nurse Practitioner Family | DX: F42.4 Excoriation (skin-picking) disorder (principal); L29.9 Pruritus, unspecified; R20.9 Unspecified disturbances of skin sensation; L82.1 Other seborrheic keratosis; L57.0 Actinic keratosis | CPT/HCPCS: 17000; 99213 ==

== ENCOUNTER 2024-07-18 10:43 | Outpatient (CLI) | payer MEDICARE, SELFPAY ==
--- NOTE | 2024-07-18 10:54 | US_ITS ---
WS: [id number] ULTRASOUND SOFT TISSUES bilateral axilla. HISTORY: LOCALIZED ENLARGED LYMPH NODES COMPARISON: None available. TECHNIQUE: 2-D and color Doppler imaging is submitted. There is small palpable superficial nodules within each axilla. These palpable nodules correspond to the superficial subcutaneous areas of heterogeneity. Mild increased echogenicity with a small central lucencies. RIGHT axillary subcutaneous nodule measures 0.7 x 0.7 x 0.3 cm. LEFT axillary subcutaneous nodule measures 0.5 x 0.5 x 0.4 cm. Minimal increased vascularity. US/US soft tissue/extremity [id number] IMPRESSION: Superficial subcutaneous nodules within each axilla. These are most likely smal l sebaceous cysts or areas of mild fat necrosis. No lymphadenopathy.
== END 2024-07-18 10:44 | disposition home or self-care (01) ==
LOC: RAD 10:46
PROVIDERS: PCP Family Medicine; Visit Provider Nurse Practitioner Family
DX: R59.0 Localized enlarged lymph nodes (principal)
CPT/HCPCS: 76882

== ENCOUNTER 2024-07-26 12:36 | Outpatient (CLI) | payer MEDICARE, SELFPAY ==
--- NOTE | 2024-07-26 13:02 | XR_ITS ---
WS: [id number] Chest 2 views, 07/26/2024 Clinical Data: PRURITUS Comparison: Two-view chest, 01/11/2022 Findings: No nodules, masses or effusions are seen. The heart is normal. The pulmonary vascularity is not increased. No pneumonia or pneumothorax is seen. There our minimal opacities over the surface of both diaphragms. There is a large hiatal hernia behind the heart. The aortic arch and descending thoracic aorta show calcification and tortuosity. There is an artificial aortic valve with midline sternotomy sutures. There is a permanent pacemaker with the generator overlying the left lateral chest. There is osteoporosis of the thoracic vertebral bodies with compression fractures and vertebroplasty cement at T10, T11 and T12. There is a dextroscoliosis of the thoracic spine. XR/XR chest 2V* [id number] Impression: 1. Permanent pacemaker and atherosclerosis along with artificial aortic valve. 2. Minimal patchy basilar atelectasis and large hiatal hernia.
[2024-07-27 15:16] LABS: Anti-Nuclear Antibody Screen NEGATIVE (NEGATIVE)
== END 2024-07-26 12:37 | disposition home or self-care (01) ==
PROVIDERS: PCP Family Medicine; Visit Provider Dermatology
DX: L29.9 Pruritus, unspecified (principal); B37.0 Candidal stomatitis; L72.0 Epidermal cyst; L91.8 Other hypertrophic disorders of the skin; L82.1 Other seborrheic keratosis; L98.8 Other specified disorders of the skin and subcutaneous tissue; D48.5 Neoplasm of uncertain behavior of skin; L57.0 Actinic keratosis
CPT/HCPCS: 11102; 17000; 36415; 71046; 86038; 99214

== ENCOUNTER 2024-08-20 09:35 | Outpatient (CLI) | payer MEDICARE, SELFPAY ==
[2024-08-20 10:43] LABS: Creatinine Urine, Random 68 mg/dL (28-217); Microalbum Creatinine Ratio Ur 15 mg/dL (0-20)
[2024-08-20 10:44] LABS: Albumin Level 3.8 g/dL (3.5-5.2); Anion Gap 13.4 (5-19); Blood Urea Nitrogen 18 mg/dL (8-23); Calcium 9.1 mg/dL (8.5-10.5); Carbon Dioxide 28 mmol/L (22-29); Chloride 101 mmol/L (98-107); Glucose 100 mg/dL (65-115); Potassium 4.4 mmol/L (3.5-5.1); Sodium 138 mmol/L (136-145)
[2024-08-20 11:44] LABS: Calcium 9.0 mg/dL (8.5-10.5)
== END 2024-08-20 09:36 | disposition home or self-care (01) ==
LOC: LAB 09:40
PROVIDERS: PCP Family Medicine; Visit Provider Internal Medicine
DX: N18.32 Chronic kidney disease, stage 3b (principal)
CPT/HCPCS: 36415; 80069; 82044; 82306; 82310; 83970

== ENCOUNTER → 2024-09-27 11:23 | Outpatient (BNVA) | payer MEDICARE, SELFPAY | PROVIDERS: PCP Family Medicine; Visit Provider Dermatology | DX: B37.0 Candidal stomatitis (principal); L29.9 Pruritus, unspecified; Z85.828 Personal history of other malignant neoplasm of skin; D48.5 Neoplasm of uncertain behavior of skin | CPT/HCPCS: 11102; 99214 ==

== ENCOUNTER → 2024-10-09 10:31 | Outpatient (BNVA) | payer MEDICARE, SELFPAY | PROVIDERS: PCP Family Medicine; Referring Provider Family Medicine; Visit Provider Internal Medicine Rheumatology | DX: M25.50 Pain in unspecified joint (principal); M15.9 Polyosteoarthritis, unspecified; Z79.899 Other long term (current) drug therapy; Z71.85 Encounter for immunization safety counseling; M81.0 Age-related osteoporosis without current pathological fracture | CPT/HCPCS: 36415; 73130; 80076; 82306; 82565; 83520; 85025; 85651; 86140; 86200; 86431; 86480; 86704; 86803; 87340; 99204 ==

== ENCOUNTER → 2024-10-18 11:23 | Outpatient (BNVA) | payer MEDICARE, SELFPAY | PROVIDERS: PCP Family Medicine; Visit Provider Emergency Medicine | DX: Z20.822 Contact with and (suspected) exposure to COVID-19 (principal) | CPT/HCPCS: 87426 ==

== ENCOUNTER 2024-12-03 11:44 | Emergency (ER) | payer MEDICARE, SELFPAY ==
[2024-12-03 11:50] VITALS: BP 221/130; PULSE 110; RESP 18; TEMP 36.7; O2SAT 94; BMI 24.0
--- NOTE | 2024-12-03 12:02 | CT_ITS ---
WS: [id number] CT ABDOMEN AND PELVIS WITH CONTRAST HISTORY: abd/back pain TECHNIQUE: Imaging performed of the abdomen and pelvis with IV contrast. Single phase imaging of the abdomen. Coronal and sagittal reformats are submitted. All CT scans at [facility] use at least one of these dose optimization techniques: automated exposure control; mA and/or kV adjustment per patient size (includes targeted exams where dose is matched to clinical indication); or iterative reconstruction. IV CONTRAST: Omnipaque 350; 100 mL IV. Oral contrast: No DLP: 254.26 mGy.cm COMPARISON: 02/24/2024, 10/28/2023 Lower thorax: Compressive atelectasis at the LEFT lung base. Moderate cardiomegaly. Pacer wires are present. Prior CABG. Intrathoracic stomach. No outlet obstruction. No ischemia. Liver/biliary system: Normal size with no intrahepatic dilatation. Gallbladder: Prior cholecystectomy. Pancreas: No change in the small cystic masses clustered in the uncinate process. A smaller cyst in the body of the pancreas. These have been previously described in follow-up recommended on the study of 02/24/2024 every 2 years for a total of 4 years. No change. Spleen: Small caliber spleen. Adrenal glands: Normal. Right kidney: No obstruction or solid mass. Left kidney: Diffuse severe atrophy. There is still enhancement of the kidney suggesting preservation of some function. No obstruction. Aorta: Ectatic atherosclerotic changes within the lower thoracic and abdominal aorta. Calcification continues into the iliac arteries. Lymphadenopathy: None. Free fluid: None. GI tract: No small bowel obstruction. Moderate diffuse constipation. No colitis. Abdominal wall: Fat-containing abdominal wall hernia. Hernia is to the RIGHT and supraumbilical. Orifice of the hernia sac 10 mm. Pelvis: No free fluid or adenopathy within the pelvis. Bones: Bones are osteopenic. Increase in the lumbar lordosis. Prior vertebroplasties at T10, T11 and T12. No change in the fracture involving the superior endplate of L1. Status post RIGHT hip arthroplasty. Severe narrowing of the LEFT hip joint. Prior healed fractures involving the inferior pubic rami. RIGHT paracentral shallow disc protrusion at T12-L1. Disc bulging and facet arthritis at L3-4 with mild central and subarticular recess stenosis. Disc bulging with a RIGHT foraminal disc protrusion at L4-5. Ligamentum flavum and facet arthritis. Moderate to severe central and RIGHT foraminal stenosis. Stenosis also noted at this location on the prior study 02/24/2024. CT/CT abdomen pelvis w con* [id number] IMPRESSION: 1. No acute abdominal or pelvic abnormalities. 2. 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 3. No free fluid or adenopathy. 4. Atrophic LEFT kidney. 5. Extensive calcifications within an ectatic abdominal aorta. 6. Prior cholecystectomy. 7. Osteopenia. 8. Prior vertebroplasties at T10, T11 and T12. 9. Moderate to severe central and RIGHT foraminal stenosis at L4-5 due to disc and osteophyte disease, no change. 10. Prior healed fractures inferior pubic rami. 11. RIGHT supraumbilical abdominal wall hernia contains fat.
--- NOTE | 2024-12-03 12:02 | W.ED.BACK ---
HPI - Back Pain/Injury General: Chief Complaint: Back Pain/Injury Stated Complaint: Back Pain Time Seen by Provider: 12/03/24 11:52 Source: patient Mode of arrival: ambulatory Limitations: no limitations History of Present Illness: 84-year-old female who states she has had chronic back pain for years. States she had a lumbar injury 8 years ago and has had pain since then. States over the last week that her pain is increased and she is unable to get control of her pain with her home meds. States her pain is currently 7 out of 10 in her low back and goes around her pelvis. She denies any bowel or bladder incontinence states is worse with movement improved with rest. She denies any fever. She is hypertensive here but states she forgot to take her medicines. Related Data Home Medications ?Medication ?Instructions ?Recorded ?Confirmed amlodipine 5 mg tablet 5 mg PO DAILY 06/09/24 10/18/24 cyanocobalamin (vitamin B-12) 1,000 mcg IM Q30D 06/09/24 10/18/24 1,000 mcg/mL injection solution famotidine 40 mg tablet 40 mg PO DAILY 06/09/24 10/18/24 hydroxyzine HCl 25 mg tablet 25 mg PO Q8H 06/09/24 10/18/24 isosorbide mononitrate 30 mg 30 mg PO QAM 06/09/24 10/18/24 tablet,extended release 24 hr levothyroxine 125 mcg tablet 125 mcg PO DAILY 06/09/24 10/18/24 propafenone 150 mg tablet 150 mg PO Q8H 06/09/24 10/18/24 sertraline 25 mg tablet 25 mg PO DAILY 06/09/24 10/18/24 Previous Rx's ?Medication ?Instructions ?Recorded sulfamethoxazole 800 1 tab PO BID 10 days #20 tabs 10/18/24 mg-trimethoprim 160 mg tablet leflunomide 20 mg tablet 20 mg PO DAILY #60 tabs 10/23/24 prednisone 20 mg tablet See Rx Instructions PO .COMPLEX 11/26/24 PRN joint pain flare #30 tabs Allergies Allergy/AdvReac Type Severity Reaction Status Date / Time LAURENT Inhibitors Allergy Unknown Unkown Verified 10/18/24 11:05 ezetimibe Allergy Unknown Unknown Verified 10/18/24 11:05 codeine Allergy ADR-Headach Verified 10/18/24 11:05 e COVID-19 vaccine, Allergy hives Verified 10/18/24 11:05 recombinant (Nova (From Novavax COVID19 Vac,Adj(Unapp)) Dsqrshs-LZN-YdM Reductase Allergy ADV-Weaknes Verified 10/18/24 11:05 Inhibitor ([place]-Cpg-Adi s Reductase Inhibitor) vaccine adjuvant system, Allergy hives Verified 10/18/24 11:05 ISCOM-Matrix (From Novavax COVID19 Vac,Adj(Unapp)) Review of Systems Musc: Reports: back pain PFSH ED PFSH: Medical History Immunization counseling High risk medication use Osteoarthritis, generalized Polyarthralgia Osteoporosis Traumatic compression fracture of eleventh thoracic vertebra History of CVA (cerebrovascular accident) GERD (gastroesophageal reflux disease) Hypothyroidism Hypertension Pacemaker Surgical History History of hip replacement rt Aortic valve replaced H/O eye surgery Hx of cataract surgery Hx of tonsillectomy S/P cholecystectomy History of open heart surgery H/O: hysterectomy H/O vaginal surgery History of knee replacement History of ankle surgery Family History Mother Stroke Social History Smoking and tobacco/nicotine status: never used tobacco/nicotine Second hand smoke exposure: No Alcohol intake: current Alcohol intake frequency: holidays/special occasions only Substance/Drug Use: never Female Reproductive History: Para: 2 Spontaneous abortions: No Physical Exam Const: COMMON NORMALS: no acute distress, patient oriented x3 and healthy appearing HENMT: COMMON NORMALS: normocephalic and atraumatic HEAD & SCALP: normocephalic and atraumatic Neck/C-Spine: COMMON NORMALS: full ROM and supple Chest: COMMONS NORMALS: normal inspection of the chest Resp: COMMON NORMALS: normal respiratory effort, No retractions, No use of accessory muscles and clear to auscultation bilaterally AUSCULTATION: clear to auscultation bilaterally Cardio: COMMON NORMALS: regular rate, regular rhythm and No murmurs present (Cardio) RATE: regular rate RHYTHM: regular rhythm GI: COMMON NORMALS: Normal to inspection, nondistended, normoactive bowel sounds present, Soft to palpation, non-tender and no masses PALPATION: Yes Soft to palpation Back/Pelvis: OTHER: Tenderness over lumbar spine no saddle anesthesia Extremity: COMMON NORMALS: normal to inspection and full ROM Neuro: COMMON NORMALS: patient oriented x3, moves all extremities and no focal motor deficits Psych: COMMON NORMALS: mental status grossly normal, Normal thought process present and cooperative THOUGHT PROCESS: Normal thought process present Skin: COMMON NORMALS: no rashes or lesions noted and no wounds GENERAL SKIN EXAM: no rashes or lesions noted Course Vital Signs: Vital signs: Vital Signs Temperature 98.1 F 12/03/24 11:50 Pulse Rate 98 12/03/24 13:30 Respiratory Rate 18 12/03/24 13:30 Blood Pressure 164/103 12/03/24 13:30 Pulse Oximetry 95 12/03/24 13:30 Oxygen Delivery Me thod Room Air 12/03/24 13:30 MDM - Back Pain/Injury Medical Decision Making Patient presents with back pain months acute on chronic back pain differential includes AAA, kidney stone, epidural abscess. Patient CT of her abdomen pelvis showed no signs of AAA or kidney stone and was showing no acute abnormalities. Patient has no saddle anesthesia and no signs of cord compression. White count electrolytes here are normal her pain has improved here with pain medicine we will give her a dose of Decadron as well as likely having pain from her chronic back issues. She is able to ambulate here. She is stable for discharge I did go over her images and labs with her she is to follow-up with her PCP and return if worsening she understands agrees to plan. Medical Records I reviewed the patient's medical records. Labs I reviewed the patient's lab results. 12/03/24 12:13 12/03/24 12:13 Radiology Impressions Abdomen/Pelvis CT 12/03/24 12:02 IMPRESSION: 1. No acute abdominal or pelvic abnormalities. 2. 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 3. No free fluid or adenopathy. 4. Atrophic LEFT kidney. 5. Extensive calcifications within an ectatic abdominal aorta. 6. Prior cholecystectomy. 7. Osteopenia. 8. Prior vertebroplasties at T10, T11 and T12. 9. Moderate to severe central and RIGHT foraminal stenosis at L4-5 due to disc and osteophyte disease, no change. 10. Prior healed fractures inferior pubic rami. 11. RIGHT supraumbilical abdominal wall hernia contains fat. Laboratory Results WBC 6.38 10^3/uL (3.29-11.43) 12/03/24 12:13 RBC 4.63 10^6/uL (3.85-5.65) 12/03/24 12:13 Hgb 13.00 g/dL (11.27-16.99) 12/03/24 12:13 Hct 39.9 % (36-47) 12/03/24 12:13 MCV 86.2 fl (85-98) 12/03/24 12:13 MCH 28.1 pg (27-33) 12/03/24 12:13 MCHC 32.6 g/dL (30-55) 12/03/24 12:13 RDW 16.9 % (12.1-15.1) H 12/03/24 12:13 Plt Count 122 10^3/cmm (157-399) L 12/03/24 12:13 MPV 9.8 fL (7.4-10.4) 12/03/24 12:13 Neut % (Auto) 82.5 % 12/03/24 12:13 Lymph % (Auto) 12.9 % 12/03/24 12:13 Nelson % (Auto) 4.1 % 12/03/24 12:13 Eos % (Auto) 0.0 % 12/03/24 12:13 Baso % (Auto) 0.0 % 12/03/24 12:13 Neut # (Auto) 5.27 10^3/uL (1.8-7.7) 12/03/24 12:13 Lymph # (Auto) 0.8 10^3/uL (0.8-4.8) 12/03/24 12:13 Nelson # (Auto) 0.3 10^3/uL (0.2-0.9) 12/03/24 12:13 Eos # (Auto) 0.0 10^3/uL (0.0-0.8) 12/03/24 12:13 Baso # (Auto) 0.0 10^3/uL (0.0-0.1) 12/03/24 12:13 Nucleated RBC % (auto) 0 % 12/03/24 12:13 Nucleated RBCs # 0.0 /100WBC 12/03/24 12:13 Sodium 132 mmol/L (136-145) L 12/03/24 12:13 Potassium 4.1 mmol/L (3.5-5.1) 12/03/24 12:13 Chloride 95 mmol/L (98-107) L 12/03/24 12:13 Carbon Dioxide 24 mmol/L (22-29) 12/03/24 12:13 Anion Gap 17.1 (5-19) 12/03/24 12:13 BUN 23 mg/dL (8-23) 12/03/24 12:13 Creatinine 1.2 mg/dL (0.5-0.9) H 12/03/24 12:13 GFR Calculation Not Reportable 12/03/24 12:13 Glucose 115 mg/dL (65-115) 12/03/24 12:13 Calculated Osmolality 279 mOsm/kg (285-295) L 12/03/24 12:13 Calcium 8.5 mg/dL (8.5-10.5) 12/03/24 12:13 Total Bilirubin 0.4 mg/dL (0.15-1.2) 12/03/24 12:13 AST 18 U/L (0-32) 12/03/24 12:13 ALT 15 U/L (0-33) 12/03/24 12:13 Alkaline Phosphatase 93 U/L (35-105) 12/03/24 12:13 Total Protein 6.1 g/dL (6.6-8.7) L 12/03/24 12:13 Albumin 3.7 g/dL (3.5-5.2) 12/03/24 12:13 Globulin 2.4 g/dL (1.3-4.6) 12/03/24 12:13 All radiology interpretation(s) finalized by discharge Discharge Plan Discharge Patient Disposition: Home Clinical Impression: Chronic back pain Condition: Stable Prescriptions: No Action sulfamethoxazole-trimethoprim 800-160 mg tablet 1 tab PO BID 10 Days Qty: 20 0RF leflunomide 20 mg tablet 20 mg PO DAILY Qty: 60 3RF prednisone 20 mg tablet See Rx Instructions PO .COMPLEX PRN (Reason: joint pain flare) Qty: 30 1RF Rx Instructions: take 2 tab daily for 7 days as needed for arthritis flare PO PRN; propafenone 150 mg tablet 150 mg PO Q8H famotidine 40 mg tablet 40 mg PO DAILY isosorbide mononitrate 30 mg tablet extended release 24 hr 30 mg PO QAM amlodipine 5 mg tablet 5 mg PO DAILY cyanocobalamin (vitamin B-12) 1,000 mcg/mL solution 1,000 mcg IM Q30D levothyroxine 125 mcg tablet 125 mcg PO DAILY sertraline 25 mg tablet 25 mg PO DAILY hydroxyzine HCl 25 mg tablet 25 mg PO Q8H Discharge Orders: Discharge ED (Routine); Ordered 12/03/24 Ordered By: Jagdeep Hutchins Referrals: Eliseo Leigh MD [Primary Care Provider, Family Practice] - 4-7 days Discharge Diet: Advance as tolerated Discharge Activity: Resume usual activity Patient Instructions: Back Pain (ED) Print Language: Venezuelan Coding Level of Care Code ED Pediatric Clinical Dietician for Arash Camara
[2024-12-03 12:13] VITALS: RESP 14; O2SAT 95
[2024-12-03] MEDS: morphine 4 mg/mL SDV 1 mL IVP (12:13)
[2024-12-03] MEDS: ondansetron 2 mg/ML SDV 2 mL 4 MG IVP (12:15)
[2024-12-03 12:22] LABS: Hematocrit 39.9 % (36-47); Hemoglobin 13.00 g/dL (11.27-16.99); Mean Corpuscular HGB Conc 32.6 g/dL (30-55); Mean Corpuscular Hemoglobin 28.1 pg (27-33); Mean Corpuscular Volume 86.2 fl (85-98); Nucleated Red Blood Cells % 0 %; Platelet Count 122 10^3/cmm (157-399); Red Blood Count 4.63 10^6/uL (3.85-5.65); White Blood Count 6.38 10^3/uL (3.29-11.43)
[2024-12-03] MEDS: hyDRALAzine 20 mg/mL INJ 1 mL 10 MG IVP (12:24)
--- OUTSIDE RECORDS SUMMARY | 2024-12-03 12:24 | XMS_ITS | Encounter Summary ---
Author Organization [facility] Address [address] [place] [address] Care Team Providers Care [employer] Name Role Phone Eliseo Leigh MD Primary Care Provider [phone] Reason for Referral * Outpatient Services (Routine) - Closed Specialty Diagnoses / Procedures Referred By Michael mendes Referred To Contact Diagnoses Visit for screening mammogram Procedures MAMMO DIGITAL SCREEN BILAT Eliseo Leigh MD [address] [address] Phone: tel: fax: Referral ID Status Reason Start Date Expiration Date Visits Re quested Visits Authorized [id number] Closed 09/19/2015 10/19/2016 1 1 Encounter Details Date Type Department Care Team (Latest Contact Info) Description 09/19/2015 Ancillary Orders [facility] Pre-Registration [place] CALL TO MAKE APPOINTMENT ONLY [address] [place] [address] Eliseo Leigh MD [address] [address] Visit for screening mammogram (Primary Dx) Social History Tobacco Use Types Packs/Day Years Used Date Smoking Tobacco: Never Smokeless Tobacco: Never Alcohol Use Standard Drinks/Week Comments No 0 (1 standard drink = 0.6 oz pur e alcohol) Comments No Sex and Gender Information Value Date Recorded Sex Assigned at Not on file 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 Gender Identity Not on file Sexual Orientation Not on file Occupation Industry Job Start Date Job End Date Not on file Not on file Not on file Not on file Not on file Not on file Not on file Not on file documented as of this encounter Plan of Treatment Not on file documented as of this encounter Results * MAMMO DIGITAL SCREEN BILAT (10/09/2015 12:15 PM CDT) Anatomical Region Laterality Modality Breast Bilateral Mammography Narrative 10/10/2015 1:47 PM CDT Bilateral Mammogram Reason for Exam: Screening Comparison: Compared to: 10/03/2014 MAMMO DIGITAL SCREEN BILAT, 09/13/2013 MAMMO DIGITAL SCREEN BILAT, 08/31/2012 MAMMO DIGITAL SCREEN BILAT, 08/19/2011 MAMMO DIGITAL SCREEN BILAT, 07/16/2010 MAMMO DIGITAL SCREEN BILAT, 06/17/2009 MAMMO UNILATERAL DIAG LEFT, 06/17/2009 MAMMO DIGITIZED STUDY, 06/05/2009 MAMMO DIGITIZED STUDY, 06/05/2009 MAMMO SCREENING BILAT, 05/09/2008 MAMMO SCREENING BILAT Findings: Bilateral CC and MLO views were obtained. This examination was reviewed with the aid of a computer-aided detection system(CAD). Breast Composition: Heterogeneously dense. No significant new findings since the prior mammogram(s). us Eliseo Leigh MD MAMMO ORDERABLES Final Result documented in this encounter Visit Diagnoses Diagnosis Visit for screening mammogram- Primary Other screening mammogram Visit for screening mammogram Other screening mammogram documented in this encounter Additional Health Concerns Assessment Noted Time PHQ-9 Depression Total Score: 2 11/20/19 15 1:00 PM CDT documented as of this encounter Care Teams [employer] Relationship Specialty Start Date End Date Eliseo Leigh MD [address] [phone] PCP - General 04/15/04 11/30/21 documented as of this encounter
--- OUTSIDE RECORDS SUMMARY | 2024-12-03 12:24 | XMS_ITS | Encounter Summary ---
Author Organization [facility] Address [address] [place] [address] Care Team Providers Care Restaurant Attendant Name Role Phone Eliseo Leigh MD Primary Care Provider [phone] Encounter Details Date Type Department Care Team (Latest Contact Info) Description 10/25/[address] 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
--- OUTSIDE RECORDS SUMMARY | 2024-12-03 12:24 | XMS_ITS | Encounter Summary ---
Author Organization [facility] Address [address] [place] [address] Care Team Providers Care Lay Midwife Name Role Phone Eliseo Leigh MD Primary Care Provider [phone] Encounter Details Date Type Department Care Team (Latest Contact Info) Description 02/11/2004 Outpatient Historical [facility] [place] [place] [address] Eliseo Leigh MD [address] [place] [address] HYPERTENSION NOS (Primary Dx) Social History Tobacco Use Types Packs/Day Years Used Date Smoking Tobacco: Never Assessed Comments Unknown Sex and Gender Information Value Date Recorded Sex Assigned at Not on file 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
--- OUTSIDE RECORDS SUMMARY | 2024-12-03 12:24 | XMS_ITS | Encounter Summary ---
Author Organization [facility] Address [address] [facility] [place] [address] Care Team Providers Care Clerk Typist Name Role Phone Eliseo Leigh MD Primary Care Provider [phone] Encounter Details Date Type Department Care Team (Late st Contact Info) Description 06/30/2007 Outpatient Historical [facility] Other, [facility] NO ADDRESS ON FILE Social History Tobacco Use Types Packs/Day Years Used Date Smoking Tobacco: Never Assessed Comments No Sex and Gender Information Value Date Recorded Sex Assigned at Not on file 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
--- OUTSIDE RECORDS SUMMARY | 2024-12-03 12:24 | XMS_ITS | Encounter Summary ---
Author Organization [facility] Address [address] [place] [address] Care Team Providers Care Construction Project Assistant Name Role Phone Eliseo Leigh MD Primary Care Provider [phone] Reason for Referral * Radiology Services (Routine) - Closed Specialty Diagnoses / Procedures Referred By Contac t Referred To Contact Cardiology Diagnoses Pacemaker battery depletion Procedures CL BATTERY CHANGE Juan Win MD [facility] Cardiac Shotgun Shell Assembly Machine Operator [address] [place] [address] Phone: tel: fax: Referral ID Status Reason Start Date Expiration Date Visits Re quested Visits Authorized [id number] Closed 07/10/2018 08/10/2019 1 1 Encounter Details Date Type Department Care Team (Late st Contact Info) Description 07/10/2018 Ancillary Orders [facility] [place] [address] [place] [address] Juan Win MD NO ADDRESS ON FILE Pacemaker battery depletion Social History Tobacco Use Types Packs/Day Years Used Date Smoking Tobacco: Never Smokeless Tobacco: Never Alcohol Use Standard Drinks/Week Comments No 0 (1 standard drink = 0.6 oz pur e alcohol) Comments No Sex and Gender Information Value Date Recorded Sex Assigned at Not on file 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 Explantation of permanent dual-chamber pacemaker. 2. Implantation of permanent dual-chamber pacemaker. PREOPERATIVE DIAGNOSES: 1. 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 2. Symptomatic sick sinus syndrome. POSTOPERATIVE DIAGNOSES: 1. 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 2. Symptomatic sick sinus syndrome. ESTIMATED BLOOD LOSS: Less than 5 mL CONTRAST: 0 mL FLUOROSCOPY TIME: 0 minutes SEDATION: Versed 1 mg, fentanyl 50 mcg SEDATION START: 1340 p.m. CASE END: 1400 p.m. MATERIALS USED: 1. Pulse generator explanted was a Medtronic Sensia SEDR01, serial number [id number]. 2. Right atrial lead reused is a Medtronic 5076, serial number [id number]. 3. Right ventricular lead reused is a Medtronic 5076, serial number [id number]. 4. New pulse generator is a Medtronic Teresa [id number], serial number [id number]. PROCEDURE: After informed consent obtained, the patient was taken to the electrophysiology lab room #6 in a fasting, nonsedated state. Timeout was called. Prophylactic antibiotics were given. The patient's left anterior chest and neck were prepped and draped in a sterile fashion. Local anesthesia was obtained with 1% lidocaine. Using a #10 blade, a skin incision then made over the old pulse generator. Using blunt dissection down to the capsule it was then incised. Incision was extended medial and lateral. The old pulse generator was then removed from the pocket. We did a device-device exchange by individually disconnecting the right atrial lead from the old pulse generator and connecting it to the new pulse generator by tightening up the set screw. We then disconnected the right ventricular lead from the old pulse generator and connecting it up to the new pulse generator by tightening up the set screw. Tug test was done on each port individually in duplicate fashion and noted to be negative. Because of the difference in footprint, the superior, medial, and inferior wall of the pulse generator pocket was taken down. Previously placed antibiotic soaked solution sponge was now removed from the pocket. Pocket was irrigated with copious amounts of antibiotic solution. New pulse generator leads were then coiled and placed in the pocket. Pocket was closed using 2-0 V-Loc in continuous running stitch fashion. Second layer of 2-0 V-Loc was applied in continuous running stitch fashion. Skin edges reapproximated with 4-0 V-Loc in a subcuticular stitch fashion. SwiftSet x2 was applied. DEVICE-BASED EVALUATION: Atrial lead: The P wave was 0.9 mV, lead impedance 532 ohms. Threshold 2.25 V, 0.4 msec. Right ventricular lead: The R wave was 2.5 mV, lead impedance 437 ohms. Threshold was 2 V at 0.4 msec. Permanent pacemaker was programmed to the following settings: Emanuel pacing was AAIR to DDDR mode. Lower rate was set at 70 beats per minute, common upper rate 130 beats per minute. Mode switch on at 171 beats per minute. Output on the right atrial lead was 4.0 V at 0.40 msec. Sensitivity 0.30 mV. Pacing and sensing polarity bipolar. Lead monitor was adapted between 200 and 3000 ohms. Right ventricular lead: The output was 3.75 V, 0.40 msec. Sensitivity 0.90 mV. Pacing and sensing polarity bipolar. Lead monitor adapted between 200 and 3000 ohms. JAYSON/thierry - transcribed in Epic - Procedure Note Juan Win MD - 07/18/2018 OPERATIVE NOTE: DATE OF PROCEDURE: 07/17/2018 PROCEDURE: 1. Explantation of permanent dual-chamber pacemaker. 2. Implantation of permanent dual-chamber pacemaker. PREOPERATIVE DIAGNOSES: 1. 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 2. Symptomatic sick sinus syndrome. POSTOPERATIVE DIAGNOSES: 1. 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 2. Symptomatic sick sinus syndrome. ESTIMATED BLOOD LOSS: Less than 5 mL CONTRAST: 0 mL FLUOROSCOPY TIME: 0 minutes SEDATION: Versed 1 mg, fentanyl 50 mcg SEDATION START: 1340 p.m. CASE END: 1400 p.m. MATERIALS USED: 1. Pulse generator explanted was a Medtronic Sensia SEDR01, serial [id number]. 2. Right atrial lead reused is a Medtronic 5076, serial [id number]. 3. Right ventricular lead reused is a Medtronic 5076, serial [id number]. 4. New pulse generator is a Medtronic [place] W1DR01, serial [id number]. PROCEDURE: After informed consent obtained, the patient was taken to theelectrophysiology lab room #6 in a fasting, nonsedated state. Timeout wascalled. Prophylactic antibiotics were given. The patient's left anteriorchest and neck were prepped and draped in a sterile fashion. Localanesthesia was obtained with 1% lidocaine. Using a #10 blade, a skinincision then made over the old pulse generator. Using blunt dissectiondown to the capsule it was then incised. Incision was extended medial andlateral. The old pulse generator was then removed from the pocket. Wedid a device-device exchange by individually disconnecting the rightatrial lead from the old pulse generator and connecting it to the newpulse generator by tightening up the set screw. We then disconnected theright ventricular lead from the old pulse generator and connecting it upto the new pulse generator by tightening up the set screw. Tug test wasdone on each port individually in duplicate fashion and noted to benegative. Because of the difference in footprint, the superior, medial,and inferior wall of the pulse generator pocket was taken down.Previously placed antibiotic soaked solution sponge was now removed fromthe pocket. Pocket was irrigated with copious amounts of antibioticsolution. New pulse generator leads were then coiled and placed in thepocket. Pocket was closed using 2-0 V-Loc in continuous running stitchfashion. Second layer of 2-0 V-Loc was applied in continuous runningstitch fashion. Skin edges reapproximated with 4-0 V-Loc in asubcuticular stitch fashion. SwiftSet x2 was applied. DEVICE-BASED EVALUATION: Atrial lead: The P wave was 0.9 mV, lead impedance 532 ohms. Threshold2.25 V, 0.4 msec. Right ventricular lead: The R wave was 2.5 mV, lead impedance 437 ohms.Threshold was 2 V at 0.4 msec. Permanent pacemaker was programmed to the following settings: Bradypacing was AAIR to DDDR mode. Lower rate was set at 70 beats per minute,common upper rate 130 beats per minute. Mode switch on at 171 beats perminute. Output on the right atrial lead was 4.0 V at 0.40 msec. Sensitivity 0.30mV. Pacing and sensing polarity bipolar. Lead monitor was adaptedbetween 200 and 3000 ohms. Right ventricular lead: The output was 3.75V, 0.40 msec. Sensitivity 0.90 mV. Pacing and sensing polarity bipolar.Lead monitor adapted between 200 and 3000 ohms. SDW/ama - transcribed in [facility] - [facility] Juan Win MD FLUOROSCOPY ORDERABLES Abby mittal Result [facility] documented in this encounter Visit Diagnoses Diagnosis Pacemaker battery depletion Fitting and adjustment of cardiac pacemaker Pacemaker - Medtronic- Primary Cardiac pacemaker in situ Pacemaker battery depletion Fitting and adjustment of cardiac pacemaker documented in this encounter Care Teams Construction Project Assistant Relationship Specialty Start Date End Date Eliseo Leigh MD [address] [phone] PCP - General 04/15/04 11/30/21 documented as of this encounter
--- OUTSIDE RECORDS SUMMARY | 2024-12-03 12:24 | XMS_ITS | Encounter Summary ---
Author Organization [facility] Address [address] [place] [address] Care Team Providers Care Restrike Hammer Operator Name Role Phone Eliseo Leigh MD Primary Care Provider [phone] Reason for Referral * Outpatient Services (Routine) - Closed Specialty Diagnoses / Procedures Referred By Contmegha t Referred To Contact Diagnoses Other screening mammogram Procedures MAMMO DIGITAL SCREEN BILAT Eliseo Leigh MD [address] [address] Phone: tel: fax: [facility] Pre-Registration [place] CALL TO MAKE APPOINTMENT ONLY [address] [place] [address] Phone: tel: fax: Referral ID Status Reason Start Date Expiration Date Visits Re quested Visits Authorized [id number] Closed 07/02/2011 07/01/2012 1 1 Encounter Details Date Type Department Care Team (Latest Contact Info) Description 07/02/2011 Ancillary Orders [facility] Pre-Registration [place] CALL TO MAKE APPOINTMENT ONLY [address] [place] [address] Eliseo Leigh MD [address] [place] [address] Other screening mammogram Social History Tobacco Use Types Packs/Day Years Used Date Smoking Tobacco: Never Smokeless Tobacco: Never Alcohol Use Standard Drinks/Week Comments No 0 (1 standard drink = 0.6 oz pur e alcohol) Comments No Sex and Gender Information Value Date Recorded Sex Assigned at Not on file 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 This examination was reviewed with the aid of a computer-aided detection system(CAD). The breast tissue is dense. Scattered calcifications are noted. No significant new findings since the prior mammogram(s). Procedure Note Sara Faye MD - 08/20/2011 Bilateral Mammogram Reason for Exam: Screening Comparison: Comparison is made with the prior exam(s) dated 05.06.06,07.16.11 Findings: Bilateral CC and MLO views were obtained. This examination was reviewed with the aid of a computer-aided detectionsystem(CAD). The breast tissue is dense. Scattered calcifications are noted. No significant new findings since the prior mammogram(s). Eliseo Leigh MD MAMMO ORDERABLES Final Result documented in this encounter Visit Diagnoses Diagnosis Other screening mammogram Other screening mammogram documented in this encounter Care Teams Restrike Hammer Operator Relationship Specialty Start Date End Date Eliseo Leigh MD [address] [facility] [address] [place] [address] PCP - General 04/15/04 11/30/21 documented as of this encounter
--- OUTSIDE RECORDS SUMMARY | 2024-12-03 12:24 | XMS_ITS | Encounter Summary ---
Author Organization [facility] Address [address] [place] [address] Care Team Providers Care Secretary Of Police Name Role Phone Eliseo Leigh MD Primary Care Provider [phone] Encounter Details Date Type Department Care Team (Latest Contact Info) Description 11/26/2003 [facility] [address] [place] [address] Eliseo Leigh MD [address] [place] [address] HYPOTHYROIDISM NOS (Primary Dx); ANEMIA IN PREG-UNSPEC; OSTEOARTHROS NOS-UNSPEC; Vaccine for influenza Social History Tobacco Use Types Packs/Day Years Used Date Smoking Tobacco: Never Assessed Comments Unknown Sex and Gender Information Value Date Recorded Sex Assigned at Not on file 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 Gender Identity Not on file Sexual Orientation Not on file documented as of this encounter Plan of Treatment Not on file documented as of this encounter Visit Diagnoses Diagnosis Unspecified hypothyroidism- Primary Anemia of mother, complicating , childbirth, or the puerperium, unspecified as to episode of care(648.20) Anemia of mother, complicating , childbirth, or the puerperium, unspecified as to episode of care Osteoarthrosis, unspecified whether generalized or localized, unspecified site Vaccine for influenza Need for prophylactic vaccination and inoculation against influenza documented in this encounter Care Teams Secretary Of Police Relationship Specialty Start Date End Date Eliseo Leigh MD [address] [phone] PCP - General 04/15/04 11/30/21 documented as of this encounter
--- OUTSIDE RECORDS SUMMARY | 2024-12-03 12:24 | XMS_ITS | Encounter Summary ---
Author Organization [facility] Address [address] [place] [address] Care Team Providers Care Tailor Women'S Garment Alteration Name Role Phone Eliseo Leigh MD Primary Care Provider [phone] Encounter Details Date Type Department Care Team (Late st Contact Info) Description 06/02/2007 Outpatient Historical [facility] [address] [place] [address] Mazin Newton MD NO ADDRESS ON FILE Social History Tobacco Use Types Packs/Day Years Used Date Smoking Tobacco: Never Assessed Comments No Sex and Gender Information Value Date Recorded Sex Assigned at Not on file Legal Sex Female 3: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
--- OUTSIDE RECORDS SUMMARY | 2024-12-03 12:24 | XMS_ITS | Encounter Summary ---
Author Organization [facility] Address [address] [place] [address] Care Team Providers Care Order Clerk Name Role Phone Eliseo Leigh MD Primary Care Provider [phone] Encounter Details Date Type Department Care Team (Latest Contact Info) Description 05/31/2007 Outpatient [facility] [address] [address] Mazin Newton MD NO ADDRESS ON FILE Aftercare for Healing Traumatic Fracture of Hip; Osteoarth NOS-Pelvis; Spinal Stenosis of Lumbar Region; Congenital Spondylolisthesis; Unspecified Essential Hypertension; Unspecified Arthropathy, Site Unspecified; Personal History of Allergy to Analgesic Agent; Personal History of Allergy to Other Specified Medicinal Agents Social History Tobacco Use Types Packs/Day Years Used Date Smoking Tobacco: Never Assessed Comments No Sex and Gender Information Value Date Recorded Sex Assigned at Not on file 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 Findings: Hip joint is remarkable only for presence of small femoral head osteophyte. There are left superior and inferior pubic ramus fractures with new bone formation and bony resorption at both fracture sites. With respect to the superior pubic ramus fracture, underlying pathologic process cannot be excluded. Comparison with older exams would be helpful if they become available. Whole body bone scan or MRI could be performed for further assessment if clinically warranted. - Dictated By: Joel Nelson M.D. Electronically Signed By: Joel Nelson M.D. Date Signed: 06/05/07 EDITH Procedure Note Joel Nelson E - 06/05/2007 Exam: Hip - Left Date/Time of Exam: Jun 02, 2007 10:43:12 AM History: Pain. Findings: Hip joint is remarkable only for presence of small femoral headosteophyte. There are left superior and inferior pubic ramus fractures with new bone formation andbony resorption at both fracture sites. With respect to the superior pubic ramus fracture, underlyingpathologic process cannot be excluded. Comparison with older exams would be helpful if they becomeavailable. Whole body bone scan or MRI could be performed for further assessment if clinically warranted. - Dictated By: Joel Nelson M.D. Electronically Signed By: Joel Nelosn M.D. Date Signed: 06/05/07 JAW Mazin Newton MD DIAGNOSTIC IMAGING ORDERABLES Final Result documented in this encounter Visit Diagnoses Diagnosis Aftercare for healing traumatic fracture of hip Osteoarthrosis, unspecified whether generalized or localized, pelvic region and thigh Spinal stenosis, lumbar region, without neurogenic claudication Congenital spondylolisthesis Unspecified essential hypertension Arthropathy, unspecified, site unspecified Personal history of allergy to analgesic agent Personal history of allergy to other specified medicinal agents documented in this encounter Care Teams Order Clerk Relationship Specialty Start Date End Date Eliseo Leigh MD [address] [address] PCP - General 04/15/04 11/30/21 documented as of this encounter
--- OUTSIDE RECORDS SUMMARY | 2024-12-03 12:24 | XMS_ITS | Encounter Summary ---
Author Organization [facility] Address [address] [place] [address] Care Team Providers Care Powderer Name Role Phone Eliseo Leigh MD Primary Care Provider [phone] Reason for Referral * Outpatient Services (Routine) - Closed Specialty Diagnoses / Procedures Referred By Contmegha t Referred To Contact Diagnoses Other screening mammogram Procedures MAMMO DIGITAL SCREEN BILAT Eliseo Leigh MD [address] [address] Phone: tel: fax: [facility] Pre-Registration M[place] CALL TO MAKE APPOINTMENT ONLY [address] [place] [address] Phone: tel: fax: Referral ID Status Reason Start Date Expiration Date Visits Re quested Visits Authorized [id number] Closed 07/28/2012 08/28/2013 1 1 Encounter Details Date Type Department Care Team (Latest Contact Info) Description 07/28/2012 Ancillary Orders [facility] Pre-Registration M[place] CALL TO MAKE APPOINTMENT ONLY [address] [place] [address] Eliseo Leigh MD [address] [place] [address] Other screening mammogram (Primary Dx) Social History Tobacco Use Types Packs/Day Years Used Date Smoking Tobacco: Never Smokeless Tobacco: Never Alcohol Use Standard Drinks/Week Comments No 0 (1 standard drink = 0.6 oz pur e alcohol) Comments No Sex and Gender Information Value Date Recorded Sex Assigned at Not on file 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 Sex Female 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 Gender Identity Not on file Sexual Orientation Not on file Occupation Industry Job Start Date Job End Date Not on file Not on file Not on file Not on file documented as of this encounter Plan of Treatment Not on file documented as of this encounter Results * MAMMO DIGITAL SCREEN BILAT (08/31/2012 1:28 PM CDT) Anatomical Region Laterality Modality Breast Bilateral Mammography Narrative 09/01/2012 12:12 PM CDT Bilateral Mammogram Reason for Exam: Screening Comparison: Compared to: 08/19/2011 MAMMO DIGITAL SCREEN BILAT, 07/16/2010 MAMMO DIGITAL SCREEN BILAT Findings: Bilateral CC and MLO views were obtained. This examination was reviewed with the aid of a computer-aided detection system(CAD). The breast tissue is dense. Bilateral calcifications appear stable. No significant new findings since the prior mammogram(s). Procedure Note Nils Kline MD - 09/01/2012 Bilateral Mammogram Reason for Exam: Screening Comparison: Compared to: 08/19/2011 MAMMO DIGITAL SCREEN BILAT, 07/16/2010MAMMO DIGITAL SCREEN BILAT Findings: Bilateral CC and MLO views were obtained. This examination was reviewed with the aid of a computer-aided detectionsystem(CAD). The breast tissue is dense. Bilateral calcifications appear stable. No significant new findings since the prior mammogram(s). Eliseo Leigh MD MAMMO ORDERABLES Final Result documented in this encounter Visit Diagnoses Diagnosis Other screening mammogram- Primary Other screening mammogram documented in this encounter Care Teams Powderer Relationship Specialty Start Date End Date Eliseo Leigh MD [address] [place] [phone] PCP - General 04/15/04 11/30/21 documented as of this encounter
--- OUTSIDE RECORDS SUMMARY | 2024-12-03 12:24 | XMS_ITS | Encounter Summary ---
Author Organization [facility] Address [address] [place] [address] Care Team Providers Care Food Preparation Worker Name Role Phone Eliseo Leigh MD Primary Care Provider [phone] Encounter Details Date Type Department Care Team (Latest Contact Info) Description 11/27/2003 Outpatient Historical [facility] [address] [place] [address] Taran Porter MD NO ADDRESS ON FILE Mitral valve disorder (Primary Dx) Social History Tobacco Use Types Packs/Day Years Used Date Smoking Tobacco: Never Assessed Comments Unknown Sex and Gender Information Value Date Recorded Sex Assigned at Not on file Legal Sex Female 3:08 AM 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
--- OUTSIDE RECORDS SUMMARY | 2024-12-03 12:24 | XMS_ITS | Encounter Summary ---
Author Organization [facility] Address [address] [place] [address] Care Team Providers Care Director Of Annual Giving Name Role Phone Eliseo Leigh MD Primary Care Provider [phone] Encounter Details Date Type Department Care Team (Latest Contact Info) Description 06/27/[address] [facility] [address] [place] [address] Lyndon Magaña, PA [address] [place] [address] Pain in Joint, Pelvic Region and Thigh; Congenital Spondylolisthesis; Unspecified Disorder of Thyroid; Unspecified Essential Hypertension; Headache; Personal History of Allergy to Analgesic Agent Social History Tobacco Use Types Packs/Day Years Used Date Smoking Tobacco: Never Assessed Comments No Sex and Gender Information Value Date Recorded Sex Assigned at Not on file Legal Sex Female 3:08 AM FIRST OFFICER Gender Identity Not on file Sexual Orientation Not on file documented as of this encounter Plan of Treatment Not on file documented as of this encounter Procedures Procedure Name Priority Date/Time Associated Diagnosis Comments XR PELVIS 1 OR 2 VW Routine 06/30/2007 1 0:37 AM CDT documented in this encounter Results * XR PELVIS 1 OR 2 VW (06/30/2007 10:37 AM CDT) Anatomical Region Laterality Modality Pelvis Other 06/30/2007 10:3 7 AM CDT Narrative 06/30/2007 10:37 AM CDT The appearance of the left Pubic bone appears unchanged compared to June 02, 1999 knee. Specifically bone resorption is present involving the superior ramus. Healing fracture of the inferior ramus is present. The hips are unremarkable in appearance. The left hip in particular appears normal. Impression: Unchanged appearance of the healing fractures and bony resorption of the left pubic bone. Again a pathological fracture or underlying active lesion cannot be excluded. Clinical correlation maybe helpful. Dictated By: Angel Wilson M.D. Electronically Signed By: Angel Wilson M.D. Date Signed: 06/30/07 Procedure Note Provider, Historical - 06/30/2007 The appearance of the left Pubic bone appears unchanged compared to 1999 knee. Specifically bone resorption is present involving the superior ramus. Healing fractureof the inferior ramus is present. The hips are unremarkable in appearance. The left hip in particularappears normal. Impression: Unchanged appearance of the healing fractures and bonyresorption of the left pubic bone. Again a pathological fracture or underlying active lesion cannot beexcluded. Clinical correlation maybe helpful. Dictated By: Angel Wilson M.D. Electronically Signed By: Angel Wilson M.D. Date Signed: 06/30/07 Lyndon Hector DI[facility]NOST[facility] Final Result documented in this encounter Visit Diagnoses Diagnosis Pain in joint, pelvic region and thigh Congenital spondylolisthesis Unspecified disorder of thyroid Unspecified essential hypertension Headache(784.0) Headache Personal history of allergy to analgesic agent documented in this encounter Care Teams Director Of Annual Giving Relationship Specialty Start Date End Date Eliseo Leigh MD [address] [address] PCP - General 04/15/04 11/30/21 documented as of this encounter
--- OUTSIDE RECORDS SUMMARY | 2024-12-03 12:24 | XMS_ITS | Encounter Summary ---
Author Organization [facility] Address [address] [place] [address] Care Team Providers Care Parts Clerk Plant Maintenance Name Role Phone Eliseo Leigh MD Primary Care Provider [phone] Encounter Details Date Type Department Care Team (Latest Contact Info) Description 08/06/2005 Outpatient Historical [facility] Op[facility] 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
--- OUTSIDE RECORDS SUMMARY | 2024-12-03 12:24 | XMS_ITS | Encounter Summary ---
Author Organization [facility] Address [address] [place] [facility] [place] [address] Care Team Providers Care Drapery Hand Name Role Phone Eliseo Leigh MD Primary Care Provider [phone] Encounter Details Date Type Department Care Team (Late st Contact Info) Description 06/30/2007 Outpatient Historical [facility] DEPARTMENT GómezLyndon Melara PA [address] [place] [address] Social History Tobacco Use Types Packs/Day Years Used Date Smoking Tobacco: Never Assessed Comments No Sex and Gender Information Value Date Recorded Sex Assigned at Not on file Legal Sex Female 3:08 AM 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
--- OUTSIDE RECORDS SUMMARY | 2024-12-03 12:24 | XMS_ITS | Encounter Summary ---
Author Organization [facility] Address [address] [place] [address] Care Team Providers Care Senior Abap Developer Name Role Phone Eliseo Leigh MD Primary Care Provider Encounter Details Date Type Department Care Team (Latest Contact Info) Description 12/02/2004 Outpatient Historical [facility] [address] [place] [address] Eliseo Leigh MD [address] [place] [address] Vaccine for influenza (Primary Dx) Social History Tobacco Use Types Packs/Day Years Used Date Smoking Tobacco: Never Assessed Comments Unknown Sex and Gender Information Value Date Recorded Sex Assigned at Not on file Legal Sex Female 3:08 AM MISSION COORDINATOR Gender Identity Not on file Sexual Orientation Not on file documented as of this encounter Plan of Treatment Not on file documented as of this encounter Visit Diagnoses Diagnosis Vaccine for influenza- Primary Need for prophylactic vaccination and inoculation against influenza documented in this encounter Care Teams Senior Abap Developer Relationship Specialty Start Date End Date Eliseo Leigh MD [address] [place] [address] PCP - General 04/15/04 11/30/21 documented as of this encounter
--- OUTSIDE RECORDS SUMMARY | 2024-12-03 12:24 | XMS_ITS | Encounter Summary ---
Author Organization [facility] Address [address] [place] [address] Care Team Providers Care Flumer Name Role Phone Eliseo Leigh MD Primary Care Provider [phone] Encounter Details Date Type Department Care Team (Late st Contact Info) Description 07/28/2007 Outpatient Historical [facility] [address] [place] [address] Mazin Newton MD NO ADDRESS ON FILE Social History Tobacco Use Types Packs/Day Years Used Date Smoking Tobacco: Never Assessed Comments No Sex and Gender Information Value Date Recorded Sex Assigned at Not on file Legal Sex Female 3:08 AM SENIOR OFFICE SUPPORT ASSISTANT SOSA Gender Identity Not on file Sexual Orientation Not on file documented as of this encounter Plan of Treatment Not on file documented as of this encounter Visit Diagnoses Not on filedocumented in this encounter Care Teams Flumer Relationship Specialty Start Date End Date Eliseo Leigh MD [address] [phone] PCP - General 04/15/04 11/30/21 documented as of this encounter
--- OUTSIDE RECORDS SUMMARY | 2024-12-03 12:24 | XMS_ITS | Encounter Summary ---
Author Organization [facility] Address [address] [place] [address] Care Team Providers Care Helpdesk Specialist Name Role Phone Eliseo Leigh MD Primary Care Provider [phone] Encounter Details Date Type Department Care Team (Latest Contact Info) Description 07/25/2007 Outpatient [facility] [address] [address] Mazin Newton MD NO ADDRESS ON FILE Spinal Stenosis of Lumbar Region; Congenital Spondylolisthesis; Unspecified Arthropathy, Site Unspecified; Unspecified Essential Hypertension Social History Tobacco Use Types Packs/Day Years Used Date Smoking Tobacco: Never Assessed Comments No Sex and Gender Information Value Date Recorded Sex Assigned at Not on file Legal Sex Female 3:08 AM 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 Fracture sites appear to be old. The hips show mild osteo arthritic changes on the right. The sacrum and SI joints are unremarkable. 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 - Dictated By: Angel Wilson M.D. Electronically Signed By: Angel Wilson M.D. Date Signed: 07/28/07 Procedure Note Angel Wilson - 09/02/2007 Non bony union of fractures of the superior and inferior left pubic ramiare present. Fracture sites appear to be old. The hips show mild osteo arthritic changes on the right. The sacrum and SIjoints are unremarkable. 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 - Dictated By: Angel Wilson M.D. Electronically Signed By: Angel Wilson M.D. 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
--- OUTSIDE RECORDS SUMMARY | 2024-12-03 12:24 | XMS_ITS | Encounter Summary ---
Author Organization [facility] Address [address] [facility] [place] [address] Care Team Providers Care Agency Operator Name Role Phone Eliseo Leigh MD Primary Care Provider [phone] Encounter Details Date Type Department Care Team (Latest Contact Info) Description 05/06/2005 Outpatient Historical [facility] [place] [address] [place] [address] Demarcus Kline MD NO ADDRESS ON FILE Other Screening Mammogram (Primary Dx) Social History Tobacco Use Types Packs/Day Years Used Date Smoking Tobacco: Never Assessed Comments Unknown Sex and Gender Information Value Date Recorded Sex Assigned at Not on file Legal Sex Female 3:08 AM OUTDOOR ADVENTURE GUIDES Gender Identity Not on file Sexual Orientation Not on file documented as of this encounter Plan of Treatment Not on file documented as of this encounter Visit Diagnoses Diagnosis Other screening mammogram- Primary documented in this encounter Care Teams Agency Operator Relationship Specialty Start Date End Date Eliseo Leigh MD [address] [place] [phone] PCP - General 04/15/04 11/30/21 documented as of this encounter
--- OUTSIDE RECORDS SUMMARY | 2024-12-03 12:24 | XMS_ITS | Encounter Summary ---
Author Organization [facility] Address [address] [place] [address] Care Team Providers Care Customer Service Consultant Name Role Phone Eliseo Leigh MD Primary Care Provider [phone] Encounter Details Date Type Department Care Team (Latest Contact Info) Description 05/06/2005 Outpatient Historical [facility] Eduardo [place] [address] [place] [address] Eliseo Leigh MD [address] [phone] Other Screening Mammogram (Primary Dx) Social History Tobacco Use Types Packs/Day Years Used Date Smoking Tobacco: Never Assessed Comments Unknown Sex and Gender Information Value Date Recorded Sex Assigned at Not on file Legal Sex Female 3:08 AM MALL PLANT CARETAKER Gender Identity Not on file Sexual Orientation Not on file documented as of this encounter Plan of Treatment Not on file documented as of this encounter Visit Diagnoses Diagnosis Other screening mammogram- Primary documented in this encounter Care Teams Customer Service Consultant Relationship Specialty Start Date End Date Eliseo Leigh MD [address] [phone] PCP - General 04/15/04 11/30/21 documented as of this encounter
--- OUTSIDE RECORDS SUMMARY | 2024-12-03 12:24 | XMS_ITS | Encounter Summary ---
Author Organization [facility] Address [address] [place] [address] Care Team Providers Care Fire Suppression Captain Name Role Phone Eliseo Leigh MD Primary Care Provider [phone] Encounter Details Date Type Department Care Team (Latest Contact Info) Description 01/11/2006 Outpatient Historical [facility] [place] [place] [address] Eliseo Leigh MD [address] [place] [address] Other Malaise and Fatigue (Primary Dx); Unspecified Hypothyroidism; Undiagnosed Cardiac Murmurs; Unspecified Chest Pain; Vaccine for influenza Social History Tobacco Use Types Packs/Day Years Used Date Smoking Tobacco: Never Assessed Comments Unknown Sex and Gender Information Value Date Recorded Sex Assigned at Not on file Legal Sex Female 3:08 AM ANALYSIS ENGINEER Gender Identity Not on file Sexual Orientation Not on file documented as of this encounter Plan of Treatment Not on file documented as of this encounter Visit Diagnoses Diagnosis Other malaise and fatigue- Primary Unspecified hypothyroidism Undiagnosed cardiac murmurs Chest pain, unspecified Vaccine for influenza Need for prophylactic vaccination and inoculation against influenza documented in this encounter Care Teams Fire Suppression Captain Relationship Specialty Start Date End Date Eliseo Leigh MD [address] [phone] PCP - General 04/15/04 11/30/21 documented as of this encounter
--- OUTSIDE RECORDS SUMMARY | 2024-12-03 12:24 | XMS_ITS | Encounter Summary ---
Author Organization [facility] Address [address] [place] [address] Care Team Providers Care Power Bender Operator Name Role Phone Eliseo Leigh MD Primary Care Provider [phone] Encounter Details Date Type Department Care Team (Late st Contact Info) Description 08/06/2005 Outpatient Historical [facility] Ophthalmology [address] [place] [address] [place] [address] Social History Tobacco Use Types Packs/Day Years Used Date Smoking Tobacco: Never Assessed Comments Unknown Sex and Gender Information Value Date Recorded Sex Assigned at Not on file Legal Sex Female 3:08 AM ASSURANCE ANALYST Gender Identity Not on file Sexual Orientation Not on file documented as of this encounter Plan of Treatment Not on file documented as of this encounter Visit Diagnoses Not on filedocumented in this encounter Care Teams Power Bender Operator Relationship Specialty Start Date End Date Eliseo Leigh MD [address] [phone] PCP - General 04/15/04 11/30/21 documented as of this encounter
--- OUTSIDE RECORDS SUMMARY | 2024-12-03 12:24 | XMS_ITS | Encounter Summary ---
Author Organization [facility] Address [address] [place] [address] Care Team Providers Care Missileman Name Role Phone Eliseo Leigh MD Primary Care Provider [phone] Encounter Details Date Type Department Care Team (Late st Contact Info) Description 03/31/2005 Outpatient Historical [facility] [address] [place] [address] Elyssa Cooper, RN NO ADDRESS ON FILE Social History Tobacco Use Types Packs/Day Years Used Date Smoking Tobacco: Never Assessed Comments Unknown Sex and Gender Information Value Date Recorded Sex Assigned at Not on file Legal Sex Female 3:08 AM ELECTRICAL INTEGRATOR Gender Identity Not on file Sexual Orientation Not on file documented as of this encounter Plan of Treatment Not on file documented as of this encounter Visit Diagnoses Not on filedocumented in this encounter Care Teams Missileman Relationship Specialty Start Date End Date Eliseo Leigh MD [address] [phone] PCP - General 04/15/04 11/30/21 documented as of this encounter
--- OUTSIDE RECORDS SUMMARY | 2024-12-03 12:24 | XMS_ITS | Encounter Summary ---
Author Organization [facility] Address [address] [place] [address] Care Team Providers Care Eyelet Punch Operator Name Role Phone Eliseo Leigh MD Primary Care Provider [phone] Encounter Details Date Type Department Care Team (Latest Contact Info) Description 10/15/2005 Outpatient [facility] [address] [place] [address] [facility] [address] [place] [address] Adam Jimenez MD [address] [facility] [address] [place] [address] Dermatochalasis (Primary Dx) Social History Tobacco Use Types Packs/Day Years Used Date Smoking Tobacco: Never Assessed Comments Unknown Sex and Gender Information Value Date Recorded Sex Assigned at Not on file Legal Sex Female 3:08 AM 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 [address] [place] [address] PCP - General 04/15/04 11/30/21 documented as of this encounter
--- OUTSIDE RECORDS SUMMARY | 2024-12-03 12:25 | XMS_ITS | Encounter Summary ---
Author Organization [facility] Address [address] [place] [address] Care Team Providers Care Sleeve Baster Name Role Phone Eliseo Leigh MD Primary Care Provider Encounter Details Date Type Department Care Team (Latest Contact Info) Description 04/15/2004 Outpatient Historical [facility] [place] [address] [place] [address] Eliseo Leigh MD [address] [place] [address] JOINT EFFUSION-L/LEG (Primary Dx) Social History Tobacco Use Types Packs/Day Years Used Date Smoking Tobacco: Never Assessed Comments Unknown Sex and Gender Information Value Date Recorded Sex Assigned at Not on file Legal Sex Female 3:08 AM PROFESSOR OF LEGAL STUDIES Gender Identity Not on file Sexual Orientation Not on file documented as of this encounter Plan of Treatment Not on file documented as of this encounter Visit Diagnoses Diagnosis Effusion of lower leg joint- Primary documented in this encounter Care Teams Sleeve Baster Relationship Specialty Start Date End Date Eliseo Leigh MD [address] [place] [address] PCP - General 04/15/04 11/30/21 documented as of this encounter
--- OUTSIDE RECORDS SUMMARY | 2024-12-03 12:25 | XMS_ITS | Encounter Summary ---
Author Organization [facility] Address [address] [place] [address] Care Team Providers Care First Officer And Flight Instructor Name Role Phone Eliseo Leigh MD Primary Care Provider [phone] Encounter Details Date Type Department Care Team (Latest Contact Info) Description 12/02/2004 Outpatient Historical [facility] Cardiology Ancillary Services[facility] [address] [place] [address] Taran Porter MD NO ADDRESS ON FILE Aortic valve disorder (Primary Dx) Social History Tobacco Use Types Packs/Day Years Used Date Smoking Tobacco: Never Assessed Comments Unknown Sex and Gender Information Value Date Recorded Sex Assigned at Not on file Legal Sex Female 3:08 AM CROZER Gender Identity Not on file Sexual Orientation Not on file documented as of this encounter Plan of Treatment Not on file documented as of this encounter Visit Diagnoses Diagnosis Aortic valve disorder- Primary Aortic valve disorders documented in this encounter Care Teams First Officer And Flight Instructor Relationship Specialty Start Date End Date Eliseo Leigh MD [address] [place] [address] PCP - General 04/15/04 11/30/21 documented as of this encounter
--- OUTSIDE RECORDS SUMMARY | 2024-12-03 12:25 | XMS_ITS | Encounter Summary ---
Author Organization [facility] Address [address] [place] [address] Care Team Providers Care Oven Equipment Repairer Name Role Phone Eliseo Leigh MD Primary Care Provider [phone] Encounter Details Date Type Department Care Team (Latest Contact Info) Description 04/15/2004 Outpatient Historical [facility] [place] [place] [address] Eliseo Leigh MD [address] [place] [address] JOINT PAIN-L/LEG (Primary Dx); HYPERTENSION NOS; SYNOVITIS NOS Social History Tobacco Use Types Packs/Day Years Used Date Smoking Tobacco: Never Assessed Comments Unknown Sex and Gender Information Value Date Recorded Sex Assigned at Not on file Legal Sex Female 3:08 AM SLAB STRIPPER Gender Identity Not on file Sexual Orientation Not on file documented as of this encounter Plan of Treatment Not on file documented as of this encounter Visit Diagnoses Diagnosis Pain in joint, lower leg- Primary Unspecified essential hypertension Synovitis and tenosynovitis, unspecified documented in this encounter Care Teams Oven Equipment Repairer Relationship Specialty Start Date End Date Eliseo Leigh MD [address] [place] [address] PCP - General 04/15/04 11/30/21 documented as of this encounter
--- OUTSIDE RECORDS SUMMARY | 2024-12-03 12:25 | XMS_ITS | Encounter Summary ---
Author Organization [facility] Address [address] [place] [address] Care Team Providers Care Master [place] Name Role Phone Eliseo Leigh MD Primary Care Provider [phone] Encounter Details Date Type Department Care Team (Late st Contact Info) Description 03/18/[address] 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 Findings: Bilateral CC and MLO views were obtained. This examination was reviewed with the aid of a computer-aided detection system(CAD). The breast tissue is very dense. No significant new findings since the prior mammogram(s). Procedure Note Laura Lopez MD - 05/10/2008 Bilateral Mammogram Reason for Exam: Screening Comparison: Comparison is made with the prior exam(s) dated 04.15.04. Findings: Bilateral CC and MLO views were obtained. This examination was reviewed with the aid of a computer-aided detectionsystem(CAD). The breast tissue is very dense. No significant new findings since the prior mammogram(s). Eliseo Leigh MD MAMMO ORDERABLES Final Result documented in this encounter Visit Diagnoses Diagnosis Screening mammogram Other screening mammogram Screening mammogram Other screening mammogram documented in this encounter Care Teams Master [place] Relationship Specialty Start Date End Date Eliseo Leigh MD [address] [address] PCP - General 04/15/04 11/30/21 documented as of this encounter
--- OUTSIDE RECORDS SUMMARY | 2024-12-03 12:25 | XMS_ITS | Encounter Summary ---
Author Organization [facility] Address [address] [place] [address] Care Team Providers Care Metal Slitter Name Role Phone Eliseo Leigh MD Primary Care Provider [phone] Encounter Details Date Type Department Care Team (Latest Contact Info) Description 07/24/2004 Outpatient Historical [facility] Dermatology- [facility] [place] [address] [place] [address] Mckay Evangelista MD NO ADDRESS ON FILE BENIGN ELIZABETH SKIN FACE NEC (Primary Dx); SEBORRHEIC KERATOSIS NOS Social History Tobacco Use Types Packs/Day Years Used Date Smoking Tobacco: Never Assessed Comments Unknown Sex and Gender Information Value Date Recorded Sex Assigned at Not on file 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
--- OUTSIDE RECORDS SUMMARY | 2024-12-03 12:25 | XMS_ITS | Encounter Summary ---
Author Organization [facility] Address [address] [place] [address] Care Team Providers Care Coagulant Dipper Name Role Phone Eliseo Leigh MD Primary Care Provider [phone] Encounter Details Date Type Department Care Team (Latest Contact Info) Description 11/13/2004 Outpatient Historical [facility] [place] [place] [address] Eliseo Leigh MD [address] [place] [address] ABDOMINAL PAIN UNSPEC SITE (Primary Dx); HYPOTHYROIDISM NOS; HYPERTENSION NOS; CAMPOS'S PALSY Social History Tobacco Use Types Packs/Day Years Used Date Smoking Tobacco: Never Assessed Comments Unknown Sex and Gender Information Value Date Recorded Sex Assigned at Not on file 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
--- OUTSIDE RECORDS SUMMARY | 2024-12-03 12:25 | XMS_ITS | Encounter Summary ---
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, Including Hip Social History Tobacco Use Types Packs/Day Years Used Date Smoking Tobacco: Never Assessed Comments No Sex and Gender Information Value Date Recorded Sex Assigned at Not on file 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
--- OUTSIDE RECORDS SUMMARY | 2024-12-03 12:25 | XMS_ITS | Encounter Summary ---
Author Organization [facility] Address [address] [facility] [place] [address] Care Team Providers Care Clinical Information Systems Director Name Role Phone Eliseo Leigh MD Primary Care Provider [phone] Encounter Details Date Type Department Care Team (Latest Contact Info) Description 06/06/2001 Outpatient Historical [facility] Dermatology- [facility] [place] [address] [place] [address] Mckay Evangelista MD NO ADDRESS ON FILE SEBORRHEIC KERATOSIS NOS (Primary Dx) Social History Tobacco Use Types Packs/Day Years Used Date Smoking Tobacco: Never Assessed Comments Unknown Sex and Gender Information Value Date Recorded Sex Assigned at Not on file 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
--- OUTSIDE RECORDS SUMMARY | 2024-12-03 12:25 | XMS_ITS | Encounter Summary ---
Author Organization [facility] Address [address] [place] [address] Care Team Providers Care Sales Incentive Analyst Name Role Phone Eliseo Leigh MD Primary Care Provider [phone] Encounter Details Date Type Department Care Team (Latest Contact Info) Description 08/11/2001 Outpatient Historical [facility] [place] [place] [address] Dennys Hudson MD [address] [place] [address] HYPERTENSION NOS (Primary Dx); HYPOTHYROIDISM NOS; OSTEOPOROSIS NOS Social History Tobacco Use Types Packs/Day Years Used Date Smoking Tobacco: Never Assessed Comments Unknown Sex and Gender Information Value Date Recorded Sex Assigned at Not on file 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
--- OUTSIDE RECORDS SUMMARY | 2024-12-03 12:25 | XMS_ITS | Encounter Summary ---
Author Organization [facility] Address [address] [place] [address] Care Team Providers Care Child Care Cook Name Role Phone Eliseo Leigh MD Primary Care Provider [phone] Encounter Details Date Type Department Care Team (Late st Contact Info) Description 11/18/[address] 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 Gender Identity Not on file Sexual Orientation Not on file documented as of this encounter Plan of Treatment Scheduled Orders Name Type Priority Associated Diagnoses Orde r Schedule ECHO STRESS EXERCISE W CONT ECG Echocardiogram Routine Undiagnosed Cardiac Murmurs Chest Pain Expected: 2008, Expires: 01/11/2009 documented as of this encounter Results * ECHO PRE TEST (11/18/2008 10:43 AM CDT) 11/18/2008 10:0 4 AM CDT Narrative INTERFACE SYSTEM - 11/18/2008 3:41 PM CDT [facility] Card[facility] [address] [place] [address] Transthoracic Echocardiogram Patient: Jcaklyn Schultz Study ID: ECHO PRE TEST Gender: F : 1940 Age: 67 years Location: Room: Height: 66 in ( 168 cm ) Study date: November 18, 2008 Patient status: Weight: 168.65 lb ( 76.66 kg ) Study time: 10: 4 BSA: 1.86 m^2 Referring MD: Lu Gomes [id number] R Performing MD: Madhuri Chambers MD Whittling Room Operator: Mayda Stephenson Ordering: Eliseo Leigh Referring MD: Eliseo Leigh DIAGNOSES SUPPORTING MEDICAL NECESSITY: Chest pain 786.51 Murmur 785.2 PROCEDURE INFORMATION: A transthoracic complete 2D study was performed. Additional evaluation included M-mode, complete spectral Doppler, and color Doppler. This was a routine echocardiographic study. The study was performed in the echo lab. Image quality was fair. SUMMARY AND CONCLUSION: - Overall left ventricular systolic function was normal. The visually estimated LV ejection fraction was around 60 %. There was no diagnostic evidence of left ventricular regional wall motion abnormalities. - Right ventricular size was normal. Right ventricular systolic function was normal. - The left atrium was mildly dilated. - Aortic valve thickness was moderately increased. The aortic valve was mildly calcified. There was moderately reduced aortic valve leaflet excursion. Findings were consistent with severe aortic valve stenosis with a mean gradient of 58mm Hg with a BATOOL of 0.6cm2. There was mild aortic valvular regurgitation. - There was mild mitral valvular regurgitation. - There was mild tricuspid valvular regurgitation. - stress test was cancelled due to severe valvular stenosis COMPARISONS: - Compared to the previous study of August 03, 2006 : - The severity of aortic stenosis was worse. IMPRESSIONS: - stress test was cancelled due to severe valvular stenosis Cardiac anatomy: LEFT VENTRICLE: Left ventricular size was normal. Overall left ventricular systolic function was normal. The visually estimated LV ejection fraction was around 60 %. There was no diagnostic evidence of left ventricular regional wall motion abnormalities. Left ventricular wall thickness was at the upper limits of normal. Diastolic dysfunction is present. ATRIAL SEPTUM: The interatrial septum was normal. RIGHT VENTRICLE: Right ventricular size was normal. Right ventricular systolic function was normal. LEFT ATRIUM: The left atrium was mildly dilated. RIGHT ATRIUM: Right atrial size was normal. AORTIC VALVE: The aortic valve was not well visualized. Aortic valve thickness was moderately increased. The aortic valve was mildly calcified. There was moderately reduced aortic valve leaflet excursion. Doppler: Findings were consistent with severe aortic valve stenosis with a mean gradient of 58mm Hg with a BATOOL of 0.6cm2. There was mild aortic valvular regurgitation. MITRAL VALVE: There was mild thickeningof the mitral valve. Doppler: There was no evidence for mitral stenosis. There was mild mitral valvular regurgitation. TRICUSPID VALVE: The tricuspid valve structure was normal. Doppler: There was no evidence for tricuspid stenosis. There was mild tricuspid valvular regurgitation. PULMONIC VALVE: The pulmonic valve was not well visualized. PERICARDIUM: There was no pericardial effusion. AORTA: The aortic root was normal in size. PULMONARY ARTERY: Doppler: The estimated peak pulmonary artery systolic pressure was within the upper limits of normal. SYSTEMIC VEINS: The inferior vena cava was normal. Measurement tables: 2D measurements LEFT VENTRICLE NORMAL LVID ed (chordal) 44.8 mm 40-48 mm LVID es (chordal) 33.7 mm 27-35 mm FS (chordal) 25 % >29% IVS ed 9.8 mm 7-10 mm LVPW ed 9.7 mm 7-10 mm LVOT area 3.17 cm^2 -- AORTA NORMAL AoD (root) 32.5 mm -- LEFT ATRIUM NORMAL LAD A-P es 35 mm 23-38 mm LAD S-I es 59 mm 31-68 mm RIGHT VENTRICLE NORMAL RVID ed 20 mm -- Doppler measurements LVOT, AV, AORTA NORMAL LVOT diameter 2.01 cm -- LVOT max velocity 84 cm/sec -- LVOT VTI 24 cm -- Stroke volume (LVOT) 76 ml -- Mean AV velocity 54.6 cm/sec -- Peak AV velocity 492 cm/sec -- AV VTI 137 cm -- Mean AV gradient 58.3 mmHg -- Peak AV gradient 97 mmHg -- AV obstruct index (VTI) 0.18 -- AV area (VTI) 0.55 cm^2 -- AV area index (VTI) 0.29 cm^2/m^2 -- AV obstruct index (Vmax) 0.17 -- AV area (Vmax) 0.54 cm^2 -- AV area index (Vmax) 0.29 cm^2/m^2 -- MITRAL VALVE NORMAL Peak E velocity 63 cm/sec -- Peak A velocity 121 cm/sec -- MV peak E/A 0.52 -- MV deceleration time 342 msec 150-230 msec Isovolumic relax time 113 msec 60-100 msec Peak gradient 2 mmHg -- RIGHT VENTRICLE NORMAL Tricuspid regurgitant velocity 261 cm/sec -- Estimated RV systolic pressure 37 mmHg <30 mmHg [facility] is accredited with the Intersocietal Commission for the Accreditation of Echocardiography Laboratories (ICAEL) Prepared and Electronically Authenticated Madhuri Chambers MD Confirmed November 18, 2008 15:41:01 Procedure Note Ebony Chambers MD - 2008 [facility] - Cardiology [address] [place] [id number] Transthoracic Echocardiogram Patient: Jacklyn Schultz Study ID: ECHO PRE TEST Gender: F : 1940 Age: 67 years Location: Room: Height: 66 in ( 168 cm ) Study date: November 18, 2008 Patient status: Weight: 168.65 lb ( 76.66 kg ) Study time: 10: 4 BSA: 1.86 m^2 Referring MD: Lu Gomes [id number] Kaleb Mcgrath MD: Madhuri Chambers MD Whittling Room Operator: Mayda Stephenson Ordering: Eliseo Robles MD: Eliseo Leigh DIAGNOSES SUPPORTING MEDICAL NECESSITY: Chest pain 786.51 Murmur 785.2 PROCEDURE INFORMATION: A transthoracic complete 2D study was performed. Additional evaluation included M-mode, complete spectral Doppler, and color Doppler. This wasa routine echocardiographic study. The study was performed in the echolab. Image quality was fair. SUMMARY AND CONCLUSION: - Overall left ventricular systolic function was normal. The visually estimated LV ejection fraction was around 60 %. There was no diagnostic evidence of left ventricular regional wall motion abnormalities. - Right ventricular size was normal. Right ventricular systolicfunction was normal. - The left atrium was mildly dilated. - Aortic valve thickness was moderately increased. The aortic valve was mildly calcified. There was moderately reduced aortic valveleaflet excursion. Findings were consistent with severe aortic valve stenosis with a mean gradient of 58mm Hg with a BATOOL of 0.6cm2.There was mild aortic valvular regurgitation. - There was mild mitral valvular regurgitation. - There was mild tricuspid valvular regurgitation. - stress test was cancelled due to severe valvular stenosis COMPARISONS: - Compared to the previous study of August 03, 2006 : - The severity of aortic stenosis was worse. IMPRESSIONS: - stress test was cancelled due to severe valvular stenosis Cardiac anatomy: LEFT VENTRICLE: Left ventricular size was normal. Overall left ventricular systolic function was normal. The visually estimated LV ejection fraction wasaround 60 %. There was no diagnostic evidence of left ventricular regional wall motion abnormalities. Left ventricular wall thickness was at the upper limits of normal. Diastolic dysfunction is present. ATRIAL SEPTUM: The interatrial septum was normal. RIGHT VENTRICLE: Right ventricular size was normal. Right ventricular systolic functionwas normal. LEFT ATRIUM: The left atrium was mildly dilated. RIGHT ATRIUM: Right atrial size was normal. AORTIC VALVE: The aortic valve was not well visualized. Aortic valve thickness was moderately increased. The aortic valve was mildly calcified. There was moderately reduced aortic valve leaflet excursion. Doppler: Findingswere consistent with severe aortic valve stenosis with a mean gradient of58mm Hg with a BATOOL of 0.6cm2. There was mild aortic valvular regurgitation. MITRAL VALVE: There was mild thickeningof the mitral valve. Doppler: There was no evidence for mitral stenosis. There was mild mitral valvularregurgitation. TRICUSPID VALVE: The tricuspid valve structure was normal. Doppler: There was no evidence for tricuspid stenosis. There was mild tricuspid valvular regurgitation. PULMONIC VALVE: The pulmonic valve was not well visualized. PERICARDIUM: There was no pericardial effusion. AORTA: The aortic root was normal in size. PULMONARY ARTERY: Doppler: The estimated peak pulmonary artery systolic pressure waswithin the upper limits of normal. SYSTEMIC VEINS: The inferior vena cava was normal. Measurement tables: 2D measurements LEFT VENTRICLE NORMAL LVID ed (chordal) 44.8 mm 40-48 mm LVID es (chordal) 33.7 mm 27-35 mm FS (chordal) 25 % >29% IVS ed 9.8 mm 7-10 mm LVPW ed 9.7 mm 7-10 mm LVOT area 3.17 cm^2 -- AORTA NORMAL AoD (root) 32.5 mm -- LEFT ATRIUM NORMAL LAD A-P es 35 mm 23-38 mm LAD S-I es 59 mm 31-68 mm RIGHT VENTRICLE NORMAL RVID ed 20 mm -- Doppler measurements LVOT, AV, AORTA NORMAL LVOT diameter 2.01 cm -- LVOT max velocity 84 cm/sec -- LVOT VTI 24 cm -- Stroke volume (LVOT) 76 ml -- Mean AV velocity 54.6 cm/sec -- Peak AV velocity 492 cm/sec -- AV VTI 137 cm -- Mean AV gradient 58.3 mmHg -- Peak AV gradient 97 mmHg -- AV obstruct index (VTI) 0.18 -- AV area (VTI) 0.55 cm^2 -- AV area index (VTI) 0.29 cm^2/m^2 -- AV obstruct index (Vmax) 0.17 -- AV area (Vmax) 0.54 cm^2 -- AV area index (Vmax) 0.29 cm^2/m^2 -- MITRAL VALVE NORMAL Peak E velocity 63 cm/sec -- Peak A velocity 121 cm/sec -- MV peak E/A 0.52 -- MV deceleration time 342 msec 150-230 msec Isovolumic relax time 113 msec 60-100 msec Peak gradient 2 mmHg -- RIGHT VENTRICLE NORMAL Tricuspid regurgitant velocity 261 cm/sec -- Estimated RV systolic pressure 37 mmHg <30 mmHg [facility] is accredited with the Intersocietal Commission forthe Accreditation of Echocardiography Laboratories (ICAEL) Prepared and Electronically Authenticated Madhuri Chambers MD Confirmed November 18, 2008 15:41:01 us Eliseo Leigh MD ORDERABLES Edited INTERFACE SYSTEM Refer to clinic/hospital department documented in this encounter Visit Diagnoses Diagnosis Undiagnosed cardiac murmurs Chest pain Chest pain, unspecified documented in this encounter Care Teams Child Care Cook Relationship Specialty Start Date End Date Eliseo Leigh MD [address] [id number] PCP - General 04/15/04 11/30/21 documented as of this encounter
--- OUTSIDE RECORDS SUMMARY | 2024-12-03 12:25 | XMS_ITS | Encounter Summary ---
Author Organization [facility] Address [address] [place] [address] Care Team Providers Care Policyholder Information Clerk Name Role Phone Eliseo Leigh MD Primary Care Provider Encounter Details Date Type Department Care Team (Latest Contact Info) Description 11/01/2000 Outpatient Historical [facility] Tony Pollard MD NO ADDRESS ON FILE Unspecified closed fracture of ankle (Primary Dx) Social History Tobacco Use Types Packs/Day Years Used Date Smoking Tobacco: Never Assessed Comments Unknown Sex and Gender Information Value Date Recorded Sex Assigned at Not on file 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
--- OUTSIDE RECORDS SUMMARY | 2024-12-03 12:25 | XMS_ITS | Encounter Summary ---
Author Organization [facility] Address [address] [place] [facility] [place] [address] Care Team Providers Care Veterans' Counselor Name Role Phone Eliseo Leigh MD Primary Care Provider [phone] Encounter Details Date Type Department Care Team (Latest Contact Info) Description 02/23/2001 Outpatient Historical [facility] Sly [place] [address] 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
--- OUTSIDE RECORDS SUMMARY | 2024-12-03 12:25 | XMS_ITS | Encounter Summary ---
Author Organization [facility] Address [address] [place] [address] Care Team Providers Care Beater Lead Name Role Phone Eliseo Leigh MD Primary Care Provider [phone] Encounter Details Date Type Department Care Team (Latest Contact Info) Description 02/23/2001 Outpatient Historical [facility] [place] [place] [address] Dennys Hudson MD [address] [place] [address] ABDOMINAL PAIN UNSPEC SITE (Primary Dx); HYPOTHYROIDISM NOS Social History Tobacco Use Types Packs/Day Years Used Date Smoking Tobacco: Never Assessed Comments Unknown Sex and Gender Information Value Date Recorded Sex Assigned at Not on file 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
--- OUTSIDE RECORDS SUMMARY | 2024-12-03 12:25 | XMS_ITS | Encounter Summary ---
Author Organization [facility] Address [address] 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
--- OUTSIDE RECORDS SUMMARY | 2024-12-03 12:25 | XMS_ITS | Encounter Summary ---
Author Organization [facility] Address [address] [facility] [place] [address] Care Team Providers Care Pneumatic Tester Mechanic Name Role Phone Eliseo Leigh MD Primary Care Provider [phone] Encounter Details Date Type Department Care Team (Latest Contact Info) Description 04/15/2004 Outpatient Historical [facility] Sly [place] [address] 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
--- OUTSIDE RECORDS SUMMARY | 2024-12-03 12:25 | XMS_ITS | Encounter Summary ---
Author Organization [facility] Address [address] 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
--- OUTSIDE RECORDS SUMMARY | 2024-12-03 12:25 | XMS_ITS | Encounter Summary ---
Author Organization [facility] Address [address] [facility] [place] [address] Care Team Providers Care River Expedition Guide Name Role Phone Eliseo Leigh MD Primary Care Provider [phone] Encounter Details Date Type Department Care Team (Late st Contact Info) Description 10/04/2000 Outpatient Historical [facility] Yimi Buenrostro MD [address] [place] [address] Hyperpotassemia (Primary Dx); Unspecified hypothyroidism Social History Tobacco Use Types Packs/Day Years Used Date Smoking Tobacco: Never Assessed Comments Unknown Sex and Gender Information Value Date Recorded Sex Assigned at Not on file 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
--- OUTSIDE RECORDS SUMMARY | 2024-12-03 12:25 | XMS_ITS | Encounter Summary ---
Author Organization [facility] Address [address] [place] [address] Care Team Providers Care Messenger Floorperson Name Role Phone Eliseo Leigh MD Primary Care Provider [phone] Encounter Details Date Type Department Care Team (Latest Contact Info) Description 04/15/2004 Outpatient Historical [facility] [place] [address] 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
--- OUTSIDE RECORDS SUMMARY | 2024-12-03 12:25 | XMS_ITS | Encounter Summary ---
Author Organization [facility] Address [address] 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
--- OUTSIDE RECORDS SUMMARY | 2024-12-03 12:26 | XMS_ITS | Encounter Summary ---
Author Organization [facility] Address [address] [place] [address] Care Team Providers Care Steam Conditioner Filling Name Role Phone Eliseo Leigh MD Primary Care Provider [phone] Encounter Details Date Type Department Care Team (Late st Contact Info) Description 01/08/2002 Outpatient Historical [facility] Imaging Services [address] [place] [address] Russell Peres MD NO ADDRESS ON FILE Social History Tobacco Use Types Packs/Day Years Used Date Smoking Tobacco: Never Assessed Comments Unknown Sex and Gender Information Value Date Recorded Sex Assigned at Not on file 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
--- OUTSIDE RECORDS SUMMARY | 2024-12-03 12:26 | XMS_ITS | Encounter Summary ---
Author Organization [facility] Address [address] [place] [address] Care Team Providers Care Pensionholder Information Clerk Name Role Phone Eliseo Leigh MD Primary Care Provider [phone] Reason for Referral * Outpatient Services (Routine) - Closed Specialty Diagnoses / Procedures Referred By Contmegha t Referred To Contact Diagnoses Other screening mammogram Procedures MAMMO DIGITAL SCREEN BILAT Eliseo Leigh MD [address] [address] Phone: tel: fax: [facility] Pre-Registration [place] CALL TO MAKE APPOINTMENT ONLY [address] [place] [address] Phone: tel: fax: Referral ID Status Reason Start Date Expiration Date Visits Re quested Visits Authorized [id number] Closed 06/06/2014 07/07/2015 1 1 Encounter Details Date Type Department Care Team (Latest Contact Info) Description 06/06/2014 Ancillary Orders [facility] Pre-Registration [place] CALL TO MAKE APPOINTMENT ONLY [address] [place] [address] Eliseo Leigh MD [address] [place] [id number] Other screening mammogram (Primary Dx) Social History Tobacco Use Types Packs/Day Years Used Date Smoking Tobacco: Never Smokeless Tobacco: Never Alcohol Use Standard Drinks/Week Comments No 0 (1 standard drink = 0.6 oz pur e alcohol) Comments No Sex and Gender Information Value Date Recorded Sex Assigned at Not on file Legal Sex Female 3:08 AM DIRECTOR SELECTION AND ADMINISTRATION Gender Identity Not on file Sexual Orientation [...] encounter Results * MAMMO DIGITAL SCREEN BILAT (10/03/2014 12:14 PM CDT) Anatomical Region Laterality Modality Breast Bilateral Mammography Narrative 10/04/2014 11:21 AM CDT Bilateral Mammogram Reason for Exam: Screening Comparison: Compared to: 09/13/2013 MAMMO DIGITAL SCREEN BILAT, 08/31/2012 MAMMO DIGITAL SCREEN BILAT, 08/19/2011 MAMMO DIGITAL SCREEN BILAT, 07/16/2010 MAMMO DIGITAL SCREEN BILAT, 06/17/2009 MAMMO UNILATERAL DIAG LEFT, 06/05/2009 MAMMO SCREENING BILAT, 05/09/2008 MAMMO SCREENING BILAT Left Pacemaker Findings: Bilateral CC and MLO views were obtained. This examination was reviewed with the aid of a computer-aided detection system(CAD). The breast tissue is dense. No significant new findings since the prior mammogram(s). Eliseo Leigh MD MAMMO ORDERABLES Final Result documented in this encounter Visit Diagnoses Diagnosis Other screening mammogram- Primary Other screening mammogram documented in this encounter Care Teams Pensionholder Information Clerk Relationship Specialty Start Date End Date Eliseo Leigh MD [address] [facility] [address] [place] [address] PCP - General 04/15/04 11/30/21 documented as of this encounter
--- OUTSIDE RECORDS SUMMARY | 2024-12-03 12:26 | XMS_ITS | Encounter Summary ---
Author Organization [facility] Address [address] [place] [facility] [place] [address] Care Team Providers Care Vending Manager Name Role Phone Eliseo Leigh MD Primary Care Provider [phone] Encounter Details Date Type Department Care Team (Latest Contact Info) Description 08/23/2000 Outpatient Historical [facility] Tony Pollard MD NO ADDRESS ON FILE Chondromalacia patellae (Primary Dx); Pain in joint, lower leg; Pain in joint, ankle and foot Social History Tobacco Use Types Packs/Day Years Used Date Smoking Tobacco: Never Assessed Comments Unknown Sex and Gender Information Value Date Recorded Sex Assigned at Not on file Legal Sex Female 3:08 AM DIRECTOR OF PERIOPERATIVE SERVICES Gender Identity Not on file Sexual Orientation Not on file documented as of this encounter Plan of Treatment Not on file documented as of this encounter Visit Diagnoses Diagnosis Chondromalacia patellae- Primary Chondromalacia of patella Pain in joint, lower leg Pain in joint, ankle and foot documented in this encounter Care Teams Vending Manager Relationship Specialty Start Date End Date Eliseo Leigh MD [address] [place] [address] PCP - General 04/15/04 11/30/21 documented as of this encounter
--- OUTSIDE RECORDS SUMMARY | 2024-12-03 12:26 | XMS_ITS | Encounter Summary ---
Author Organization [facility] Address [address] [facility] [place] [address] Care Team Providers Care Finger Waver Name Role Phone Eliseo Leigh MD Primary Care Provider [phone] Encounter Details Date Type Department Care Team (Latest Contact Info) Description 04/24/1997 Outpatient Historical [facility] Dermatology- [facility] [place] [address] [place] [address] Mckay Evangelista MD NO ADDRESS ON FILE Malig beverly skin arm (Primary Dx); Other seborrheic keratosis; Dermatophytosis of foot Social History Tobacco Use Types Packs/Day Years Used Date Smoking Tobacco: Never Assessed Comments Unknown Sex and Gender Information Value Date Recorded Sex Assigned at Not on file 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
--- OUTSIDE RECORDS SUMMARY | 2024-12-03 12:26 | XMS_ITS | Encounter Summary ---
Author Organization [facility] Address [address] [place] [address] Care Team Providers Care Personal Support Worker Name Role Phone Eliseo Leigh MD Primary Care Provider [phone] Encounter Details Date Type Department Care Team (Latest Contact Info) Description 09/11/2013 Ancillary Orders [facility] Pre-Registration [place] CALL TO MAKE APPOINTMENT ONLY [address] [place] [address] Eliseo Leigh MD [address] [address] Other screening mammogram (Primary Dx) Social History Tobacco Use Types Packs/Day Years Used Date Smoking Tobacco: Never Smokeless Tobacco: Never Alcohol Use Standard Drinks/Week Comments No 0 (1 standard drink = 0.6 oz pur e alcohol) Comments No Sex and Gender Information Value Date Recorded Sex Assigned at Not on file 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 Exam was auto-finalized. Procedure Note Gale Hammond - 09/11/2013 Order information only. Exam was auto-finalized. us Eliseo Leigh MD DIAGNOSTIC IMAGING ORDERABLES Fi nal Result * MAMMO DIGITIZED STUDY (06/05/2009 8:09 AM CDT) Narrative Gale Hammond - 09/11/2013 8:09 AM CDT Order information only. Exam was auto-finalized. Procedure Note Gale Hammond - 09/11/2013 Order information only. Exam was auto-finalized. Eliseo Leigh MD DIAGNOSTIC IMAGING ORDERABLES Fi nal Result * MAMMO DIGITIZED STUDY (05/09/2008 8:07 AM CDT) Narrative Gale Hammond - 09/11/2013 8:08 AM CDT Order information only. Exam was auto-finalized. Procedure Note Gale Hammond - 09/11/2013 Order information only. Exam was auto-finalized. Eliseo Leigh MD DIAGNOSTIC IMAGING ORDERABLES Fi nal Result documented in this encounter Visit Diagnoses Diagnosis Other screening mammogram- Primary Other screening mammogram Other screening mammogram Other screening mammogram documented in this encounter Care Teams Personal Support Worker Relationship Specialty Start Date End Date Eliseo Leigh MD [address] [phone] PCP - General 04/15/04 11/30/21 documented as of this encounter
--- OUTSIDE RECORDS SUMMARY | 2024-12-03 12:26 | XMS_ITS | Clinical Summary ---
Author Organization [facility] tone Address [address] [place] [address] Care Team Providers Care Car Escort Name Role Phone Eliseo Leigh MD Primary Care Provider [phone] Allergies Active Allergy Reactions Criticality Noted Date Comments Homar Inhibitors Unknown Caused kidney issues per patient Codeine Headache Low Covid-19 Vaccine, Mrna, [id number], Lnp-S (Moderna) Rash Low 12/11/2020 Ezetimibe Unknown Weakness, feeling flush Ioblbyf-Xot-Qmt Reductase Inhibitors Muscle Pain,Weakness Low Medications Syringe with Needle, Disp, (BD Luer-Nirav Syringe) 3 mL 25 x 5/8 Syringe Inject 1 ml every 30 days 50 Each 0 01/02/20 20 Active nitroglycerin (NITROSTAT) 0.4 mg Tablet, Sublingual Place 1 Tablet (0.4 mg) under tongue every 5 minutes as needed for Chest Pain. 20 Tablet 0 02/11/19 21 Active potassium chloride (K-TAB) 20 mEq Extended Release tablet Take 1 Tablet (20 mEq) by mouth daily with breakfast. 90 Tablet 1 08/13/19 23 Active furosemide (LASIX) 40 mg tablet Take 1 Tablet (40 mg) by mouth daily. 40 Tablet 3 06/16/19 24 Active MAGNESIUM ORAL Take 1 Tablet by mouth daily. Active folic acid/multivit- min/lutein (CENTRUM SILVER ORAL) Take 1 Tablet by mouth daily. Active acetaminophen (TYLENOL) 500 mg tablet Take 500 mg by mouth every 6 hours as needed. Active triamcinolone acetonide (NASACORT AQ) 55 mcg nasal spray Administer 1 [place] in each nostril daily. Active cholecalcifero l 1,250 mcg (50,000 unit) Capsule Take 1 Capsule (50,000 Units) by mouth every 7 days. 8 Capsule 4 9:28 AM CDT 09/15/19 24 Active cyanocobalamin (VITAMIN B-12) 1,000 mcg/mL Solution Inject 1 mL (1,000 mcg) by intramuscular injection every 30 days. 10 mL 1 10/24/19 24 Active docusate sodium (Colace) 100 mg capsule Take 1 Capsule (100 mg) by mouth 2 times daily. 60 Capsule 12 10/24/19 24 Active propafenone (RYTHMOL) 150 mg Tablet Take 1 Tablet (150 mg) by mouth every 8 hours. 90 Tablet 11 02/06/20 24 Active sertraline (ZOLOFT) 25 mg tablet Take 1 Tablet (25 mg) by mouth daily. 90 Tablet 3 02/09/19 25 Active isosorbide mononitrate (IMDUR) 30 mg Extended Release 24 hour tablet Take 1 Tablet (30 mg) by mouth daily in the morning. 30 Tablet 12 02/09/19 25 Active cyanocobalamin (VITAMIN B-12) 1,000 mcg/mL Solution Inject 1 mL (1,000 mcg) by intramuscular injection every 30 days. 30 mL 12 05/22/19 25 Active levothyroxine 125 mcg tablet TAKE 1 TABLET (125 MCG) BY MOUTH DAILY. 90 Tablet 3 10/17/19 25 Active famotidine (PEPCID) 40 mg tablet TAKE ONE TABLET BY MOUTH 2 TIMES DAILY 60 Tablet 11/13/19 25 Active amLODIPine (NORVASC) 5 mg tablet TAKE 1 TABLET (5 MG) BY MOUTH DAILY. 30 Tablet 5 11/13/19 25 Active hydrOXYzine HCL (ATARAX) 25 mg tablet TAKE 1 TABLET BY MOUTH EVERY 8 HOURS NEEDED FOR ITCHING 90 Tablet 1 11/28/19 25 Active amLODIPine (NORVASC) 5 mg tablet TAKE 1 TABLET (5 MG) BY MOUTH DAILY. 30 Tablet 5 04/30/19 25 2024 Discontinued famotidine (PEPCID) 40 mg tablet TAKE ONE TABLET BY MOUTH 2 TIMES DAILY 60 Tablet 5 06/06/19 25 2024 Discontinued hydrOXYzine HCL (ATARAX) 25 mg tablet TAKE 1 TABLET BY MOUTH EVERY 8 HOURS NEEDED FOR ITCHING 90 Tablet 1 08/01/19 25 2024 Discontinued Active Problems Problem Noted Date Diagnosed Date Lichen planus 02/10/2024 Status post total replacement of right hip - 09/1401/19/2023 Chronic diastolic CHF (conge stive heart failure), NYHA class 2 06/22/2022 Severe aortic stenosis 06/22/2022 Status post transcatheter ao rtic valve replacement (TAVR) using bioprosthesis 06/22/2022 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 06/13/2022 Nonrheumatic mitral valve regurgitation 06/14/19 assisted current use of antiarrhythmic drug 05/2022 S/P AVR (aortic valve replacement) 12/06/2019 Paroxysmal atrial fibrillation 11/06/2017 Nonrheumatic aortic valve stenosis 10/31/2016 Overview (06/22/2022): S/p Mitroflow AVR December 2009 Hypothyroidism due to acquired atrophy of thyroi d 11/13/2015 Pacemaker - Medtronic 10/08/2014 CKD (chronic kidney disease), stage III 02/22/19 15 Dry eyes 05/08/2013 Pseudophakia, both eyes 05/08/2013 After cataract, right eye 05/08/2013 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 05/08/2013 Other seborrheic keratosis 09/17/2008 Vitiligo 08/03/2007 Actinic keratosis 08/03/2007 Essential hypertension Recurrent major depressive disorder, in partial remission Osteoarthrosis, unspecified whether generalized or localized, unspecified site Mixed hyperlipidemia Resolved Problems Problem Noted Date Diagnosed Date Resolved Date Moderate protein-calorie malnutrition 06/16/2022 08/24/2023 Acute on chronic systolic co ngestive heart failure 06/13/2022 08/25/2022 Acute on chronic congestive heart failure 06/13/2022 08/25/2022 Acute heart failure with pre served ejection fraction (HFpEF) 06/10/2022 08/25/2022 Overview (06/10/2022): valvular Combined form of senile cataract 05/08/2013 05/24/2013 Encounter for long-term (cur rent) use of other medications 09/06/2012 06/10/2022 Left knee DJD 03/01/2011 01/19/2023 Right knee DJD 11/16/2010 01/19/2023 Other nonspecific abnormal c ardiovascular system function study 12/11/2008 10/25/2017 Aortic valve disorder 12/11/20082022 Overview (06/05/2020): Non rheumatic aortic stenosis with AVR December of 2009. BCE (basal cell epithelioma), leg 08/03/2007 09/17/2008 Acute pancreatitis 4 Encounters Date Type Department Care Team Description 11/26/2024 [facility] [address] [place] [address] Eliseo Leigh MD 11/10/2024 [facility] [facility] [address] [place] [address] Eliseo Leigh MD 10/30/2024 8:00 AM CDT Procedure visit [facility] [address] [place] [address] Ritesh Chambers MD Complete heart block (CMS/HCC) (Primary Dx); Sick sinus syndrome (CMS/HCC); Atrial fibrillation, unspecified type (CMS/HCC); Cardiac pacemaker in situ 10/24/2024 External Device Data STL ABSTRACTION Provider, Abstract 10/16/2024 [facility] [address] [place] [phone] Eliseo Leigh MD 10/09/2024 Transcribe Orders [facility] Centralized Scheduling Traphill CALL TO MAKE APPOINTMENT ONLY [address] [place] [phone] Eliseo Leigh MD Visit for screening mammogram (Primary Dx) 09/26/2024 External Device Data STL ABSTRACTION Provider, Abstract 09/17/2024 10:20 AM CDT Office Visit [facility] [address] [place] [phone] Lauren Jacques NP Status post total replacement of right hip (Primary Dx) 09/17/2024 9:40 AM CDT Ancillary Procedure [facility] [address] [place] [phone] Julio Macdonald MD Status post total replacement of right hip from Last 3 Months Immunizations Immunization Administration Dates Next Due (ADACEL/BOOSTRIX)(10 YR UP) TDAP VACCINE, 0.5ML, IM 03/12/2008 (PNEUMOVAX 23)(50 YRS UP) PN EUMOCOCCAL POLYSACCHARIDE (PPV23) 0.5 ML, IM 03/12/2008,02/08/2000 (PREVNAR 13)(6 WKS UP) PNEUM OCOCCAL CONJUGATE (PCV13) 0.5 ML, IM 03/21/2014 INFLUENZA VACCINE HIGH DOSE QUADRIVALENT 65 YR UP PF IM 01/10/2023,11/26/2021 INFLUENZA VACCINE HIGH DOSE TRIVALENT SPLIT VIRUS, (65 YR UP), 0.5ML (PF), IM 11/21/2023 Influenza Seasonal Unspecifi ed Formulation IM 12/08/2006,01/11/2006,12/02/2004,11/25,12/12/2000 Influenza Vaccine High Dose 65+ Yrs IM 0 10/30/2019,11/08/2018,11/11/2017,10/18,11/13/2015,2014,11/15/2013 ,11/04/2011,11/03/2010 Influenza Vaccine Split 3+ Yrs IM 12/07/2007 Influenza Vaccine Split 3+ Yrs PF IM 11/09/2012, 11/05/2009,11/21/2008 PREVNAR (PCV13) pneumococcal 13-valent conjugate Vaccine 10/30/2019 Zoster Vaccine Live SQ Patie nt Supplied 09/07/2011 Family History Medical History Relation Name Comments Other Father suicide Hypertension Mother Other Mother brain aneurysm Stroke Mother Thyroid Disease Mother Cataract Other Detachment/Tears Other Heart Disease Other Thyroid Disease Other Amblyopia Neg Hx Arthritis-rheumatoid Neg Hx Blindness Neg Hx Breast Cancer Neg Hx Negative risk form-see media tab Cancer Neg Hx Colon Cancer Neg Hx Diabetes Neg Hx Glaucoma Neg Hx Macular Degen Neg Hx Melanoma Neg Hx Ovarian Cancer Neg Hx Pancreatic Cancer Neg Hx Strabismus Neg Hx Uterine or Endometrial Cance r, Not Including Cervical Neg Hx Relation Name Status Comments Father Mother Other Social History Tobacco Use Types Packs/Day Years Used Date Smoking Tobacco: Never Smokeless Tobacco: Never Tobacco Cessation:Counseling Given: Not Answered Alcohol Use Standard Drinks/Week Comments No 0 (1 standard drink = 0.6 oz pur e alcohol) Feeling Safe Answer Date Recorded Are you in a relationship wi th someone who hurts you emotionally and/or physically? No 09/15/2023 Food Insecurity Answer Date Recorded Patient needs follow up regardin 06/05/2024 Transportation Needs Answer Date Record ed Patient needs follow up regardin 06/05/2024 Housing Stability Answer Date Recorded Social/Environmental Concerns No concerns Utility Needs Answer Date Recorded Patient needs follow up regardin 06/05/2024 Comments No Sex and Gender Information Value Date Recorded Sex Assigned at Not on file Legal Sex Female 6:28 AM CREEL SELECTOR Gender Identity Not on file Sexual Orientation Not on file Last Filed Vital Signs Vital Sign Reading Time Taken Comments Blood Pressure 122/78 09/17/2024 9:56 AM CDT Pulse 84 06/21/2024 2:44 PM CDT Temperature 36.7 C (98.1 F) 05/21/2024 10:30 AM CDT Respiratory Rate 16 05/21/2024 10:30 AM CDT Oxygen Saturation 96% 05/21/2024 10:30 AM CDT Inhaled Oxygen Concentration - - Weight 66.8 kg (147 lb 3.2 oz) 09/17/2024 9:56 A M CDT Height 162.6 cm (5' 4 ) 09/17/2024 9:56 AM CDT Body Mass Index 25.27 09/17/2024 9:56 AM CDT Plan of Treatment Upcoming Encounters Date Type Department Care Team (Late st Contact Info) Description 12/26/2024 1:50 PM CREEL SELECTOR Appointment [facility] [address] [address] Eliseo Leigh MD [address] [place] [phone] 01/11/2025 11:20 AM CREEL SELECTOR Office Visit [facility] [address] [place] [address] Jose Bob CRNP [address] [facility] [address] [place] [address] 06/27/2025 1:30 PM CDT Office Visit [facility] [address] [place] [address] Jarocho Good MD [address] [place] [address] Health Maintenance Due Date Last Done Comments ZOSTER VACCINE (2 of 3) 11/02/2011 09/07/2011 RSV VACCINE (60+ or ) (1 - 1-dose 75+ series) 2013 COLORECTAL SCREENING 03/15/2017 03/15/2012, 03/15/19 13 DTAP/TDAP/TD VACCINES (2 - T d or Tdap) 03/12/2018 03/12/2008 OSTEOPOROSIS SCREENING 09/03/2019 5, 09/02/2014, 09/02/2014, Additional history exists Traditional Medicare (ACO) A nnual Wellness Visit 03/31/2024 03/30/2023 INFLUENZA VACCINE (#1) 2024 4, 01/10/2023, 11/26/2021, Additional history exists COVID-19 Vaccine (2 - 2024-2 6 season) 2024 08/29/2020 PNEUMOCOCCAL VACCINE 50+ YEARS Completed 0 10/30/2019, 03/21/2014, 03/12/2008, Additional history exists Medical Devices Implanted Type Area Pipe Fitter Supervisor Device Identifier Shelf Expiration Date Model / Serial / Lot Log [id number] - Cement - 1 - Simplex W/Tobra 6197-9-001 Implanted:Qty : 1 on 11/16/2010 Cement Right: Knee [employer]URIE[employer] OR[employer] 05/08/2012 6197-9-001 / / [id number] Simplex W/Tobra 6197-9-001 - Sna Implanted:Qty : 2 on 03/01/2011 Cement Left: Knee [employer] 09/29/2012 6197-9-001 / NA / [id number] Cement Activos W/Judd C10a Implanted:02/2014 by Scott Posadas MD (Quantity not on file) Cement Vertebrae MEDTRONIC - SPINAL fka KYPHON 10/07/2016 C10A / / [id number] Description:T12 Kyphoplasty Closure Perclose Prostyle Sut Mediate 87053-81 - [id number] Implanted:Qty : 1 on 06/22/2022 at [facility] Closure Device Right: Groin MAGUIRE- VASC DEVICE 04/06/2024 65477-25 / / [id number] Closure Perclose Prostyle Sut Mediate 78846-16 - [id number] Implanted:Qty : 1 on 06/22/2022 at [facility] Closure Device Right: Groin MAGUIRE- VASC DEVICE 04/06/2024 87027-69 / / [id number] Dev Closure Angioseal 6fr Vip [id number] - [id number] Implanted:Qty : 1 on 06/22/2022 at [facility] Closure Device Left: Groin MAGUIRE [facility] [employer] 01/06/2023 [id number] / / [id number] Lens Io Tecnis 1pc 22 [id number] - [id number] Implanted:Qty : 1 on 05/24/2013 by Angel Muse MD Eye Left: Eye [employer] 01/23/2017 [id number] / [id number] / Log [id number] - Bard Patches, Pledgets, Jonelle, Fabrics - 1 - [place] Ptfe Thck 1.6mmx2.5x2.5 cm [id number] Implanted:Qty : 1 on 12/18/2008 Graft CR BARD- JOHNNIE VASC INC 01/07/2013 [id number] / / [id number] Log 53676 - Bard Patches, Pledgets, Jonelle, Fabrics - 2 - [place] Ptfe Thck 1.6mmx2.5x2.5 cm [id number] Implanted:Qty : 1 on 12/18/2008 Graft CR BARD- JOHNNIE VASC INC 07/08/2013 [id number] / / [id number] Head Fem Cer 01/20 40mm 1365-40-710 - [id number] Implanted:Qty : 1 on 09/15/2023 by Julio Macdonald MD at [facility] Hip Right: Hip J&J- [employer]Y OR[employer] INC [id number] 06/06/2028 0 / / [id number] Stem Fem Actis Hi Colr Sz5 1010-12-050 - [id number] Implanted:Qty : 1 on 09/15/2023 by Julio Macdonald MD at [facility] Hip Right: Hip J&J- [employer]Y [employer] INC [id number] 08/06/203310091010-01-11 0 / / [id number] Log [id number] - [place] Total Knee - 1 - Comp Fem Trthln Cr Sz4 Rt 5510-F-402 Implanted:Qty : 1 on 11/16/2010 Knee Right: Knee [employer] 07/09/2015 5510-F-402 / / [id number] Log [id number] - Laurie Total Knee - 1 - Comp Tib Triathlon Cmnt 5520-B-400 Implanted:Qty : 1 on 11/16/2010 Knee Right: Knee [employer] 09/08/2015 5520-B-400 / / [id number] Log [id number] - [place] Total Knee - 1 - Insert Tib Trthln X3 3731-G-031 Implanted:Qty : 1 on 11/16/2010 Knee Right: Knee [employer] 08/08/2015 5531-G-411 / / [id number] Log [id number] - Laurie Total Knee - 1 - Patella Trthln Sym X3 9344-G-339 Implanted:Qty : 1 on 11/16/2010 Knee Right: Knee LAURIE- HOWMEDICA INT INC 08/08/2015 5550-G-339 / / [id number] Comp Fem Trthln Cr Sz5 Lt 5510-F-501 - Sna Implanted:Qty : 1 on 03/01/2011 Knee Left: Knee [employer] 01/29/2015 5510-F-501 / NA / [id number] Comp Tib Triathlon Cmnt 5520-B-400 - Sna Implanted:Qty : 1 on 03/01/2011 Knee Left: Knee [employer] 01/30/2016 5520-B-400 / NA / GMON Ins Tib Triathlon Sz4 11mm 5531-P-411 - Sna Implanted:Qty : 1 on 03/01/2011 Knee Left: Knee [employer] 09/30/2015 5531-P-411 / NA / [id number] Patella Trthln Sym Poly 5550-L-339 - Sna Implanted:Qty : 1 on 03/01/2011 Knee Left: Knee [employer]URIE- HOWMEDICA INT INC 10/31/2015 5550-L-339 / NA / [id number] Lead Pacing Capsure Fix Novus 52cm [id number] - [facility] - [id number] Implanted:Qty : 1 on 10/14/2022 at [facility] Lead Left: Chest [employer]- CRM - BULK BUY 12/25/2023 [id number] / [id number] / Pacemaker Aventura Xt Surescan W1dr01 Pacemaker [employer]- CRM - BULK BUY [id number] 11/21/2019 W1DR01 / [id number] / Pacemaker Teresa Xt Dr Woods Ipg Dual Chmbr Surescan W1dr01 - [id number] Implanted:Qty : 1 on 10/14/2022 at [facility] Pacemaker Left: Chest [employer]- CRM - BULK BUY 03/06/2024 W1DR01 / [id number] / Pin Headless Fltd 02/14 [id number] Implanted:Qty : 1 on 11/16/2010 Pin [employer] 7650- / / Description:moved down from pick list- Implant Type-TS Dlvry Sys Evolut Fx 23-29mm G-Mbundqan-31 29 - [id number] Implanted:Qty : 1 on 06/22/2022 at [facility] Valve N/A: Heart [employer]- HEART VALVE 02/11/2024 D-EVOLUTFX -2329 / [id number] / [id number] Vlv Aort Evolut Fx Tavr 26mm Evolutfx-26 - [id number] Implanted:Qty : 1 on 06/22/2022 at [facility] Valve N/A: Aorta [employer]- HEART VALVE 04/05/2024 EVOLUTFX-2 6 / [id number] / [id number] - [id number] Implanted:Qty : 1 on 12/18/2008 Heart 05/08/2013 LXA25 / [id number] / Description:SorinGroup Mitro flow Aortic Heart Valve (size 25mm) Liner Acet Emphasys [id number] Implanted:Qty : 1 on 09/15/2023 by Julio Macdonald MD at [facility] Right: Hip 06/06/2028 [id number] / / [id number] Shell Acet Emphyasys 54mm 3h Implanted:Qty : 1 on 09/15/2023 by Julio Macdonald MD at [facility] Right: Hip 07/07/2033 [id number] / / [id number] Procedures Procedure Name Priority Date/Time Associated Diagnosis Comments VA REM INTERROG PM/LDLS PM/IDS <90 D TECH REVIEW Routine 10/29/2024 8:09 PM CDT Complete heart block (CMS/HCC) Sick sinus syndrome (CMS/HCC) Atrial fibrillation, unspecified type (CMS/HCC) Cardiac pacemaker in situ VA REM INTERROG PM/LDLS PM <90 D PHYS/QHP Routine 10/29/2024 8:09 PM CDT Complete heart block (CMS/HCC) Sick sinus syndrome (CMS/HCC) Atrial fibrillation, unspecified type (CMS/HCC) Cardiac pacemaker in situ XR PELVIS 1 OR 2 VW Routine 09/17/2024 9 :44 AM CDT Status post total replacement of right hip XR DEXA BONE DENSITY AXIAL 1 OR MORE SITES Routine 09/02/2014 1:04 PM CDT Menopausal disorder from Last 3 Months or Most Recently Relevant to Health Maintenance Results * VA REM INTERROG PM/LDLS PM <90 D PHYS/QHP, VA REM INTERROG PM/LDLS PM/IDS <90 D TECH REVIEW (10/29/2024 8:09 PM CDT) 10/29/2024 8:09 PM CDT Narrative INTERFACE SYSTEM - 10/30/2024 4:25 PM CDT Remote Transmission Report Date of Procedure: October 30, 2024 Events: 1 short NSVT event Comments: Carelink remote transmission reveals normal dual chamber PPM function with stable available threshold and impedance trends. Presenting EGM indicates Atrial pacing with intact AV node conduction . Follow-up with EP office in 3 months See attached report for details. Procedure Note Provider, Historical - 10/30/2024 Remote Transmission Report Date of Procedure: October 30, 2024 Events: 1 short NSVT event Comments: Carelink remote transmission reveals normal dual chamber PPM function withstable available threshold and impedance trends. Presenting EGM indicates Atrial pacing with intact AV node conduction . Follow-up with EP office in 3 months See attached report for details. Ritesh Chambers MD CARDIAC SERVICES ORDERA BLES Edited Result - Final INTERFACE SYSTEM Refer to clinic/hospital department * XR PELVIS 1 OR 2 VW (09/17/2024 9:44 AM CDT) Anatomical Region Laterality Modality Pelvis Computed Radiogr aphy Narrative 10/01/2024 8:19 AM CDT X-rays of the pelvis and hip were obtained and shows no osteolytic or osteoblastic lesions of bone. There appears to be good osseous integration of the implant. Julio Macdonald MD DIAGNOSTIC IMAGING ORDERABLES Final Result * XR DEXA BONE DENSITY AXIAL 1 OR MORE SITES (09/02/2014 1:04 PM CDT) Anatomical Region Laterality Modality Other Impressions 09/02/2014 1:24 PM CDT Impression: Since the previous examination of 03/27/2012 bone mineral density has improved in the lumbar spine, however, this may be artifactual due to worsening degenerative changes. Bone mineral density has mildly worsened in the left hip. Narrative 09/02/2014 1:24 PM CDT DEXA Evaluation of the Lumbar Spine and Left Proximal Femur: Reason for Consultation: Status post menopause. Evaluation of bone mineral density. The following absorptiometry data were obtained. The overall technical quality of the study is good. Serial measurement number two. L1 Through L4 BMD (g/cm2): 1.169 Young adult %: 99 Adult T-score: -0.1 Adult Z-score: 1.3 Left Femoral Neck BMD (g/cm2): 0.862 Young adult %: 83 Adult T-score: -1.3 Adult Z-score: 0.4 Left Total Hip BMD (g/cm2): 0.855 Young adult %: 85 Adult T-score: -1.2 Adult Z-score: 0.3 The patient demonstrates normal bone mineral density of the trabecular bone of the lumbar spine. The amount of mineral is equivalent to a young normal, age 20 to 40. The patient demonstrates mild osteopenia of the neck and total hip regions of the left hip. Procedure Note Sloan Perez MD - 06/25/2021 DEXA Evaluation of the Lumbar Spine and Left Proximal Femur: Reason for Consultation: Status post menopause. Evaluation of bone mineral density. The following absorptiometry data were obtained. The overall technical quality of the study is good. Serial measurement number two. L1 Through L4 BMD (g/cm2): 1.169 Young adult %: 99 Adult T-score: -0.1 Adult Z-score: 1.3 Left Femoral Neck BMD (g/cm2): 0.862 Young adult %: 83 Adult T-score: -1.3 Adult Z-score: 0.4 Left Total Hip BMD (g/cm2): 0.855 Young adult %: 85 Adult T-score: -1.2 Adult Z-score: 0.3 The patient demonstrates normal bone mineral density of the trabecular bone of the lumbar spine. The amount of mineral is equivalent to a young normal, age 20 to 40. The patient demonstrates mild osteopenia of the neck and total hip regions of the left hip. IMPRESSION Impression: Since the previous examination of 03/27/2012 bone mineral density has improved in the lumbar spine, however, this may be artifactual due to worsening degenerative changes. Bone mineral density has mildly worsened in the left hip. Eliseo Leigh MD DIAGNOSTIC IMAGING ORDERABLES Fi nal Result from Last 3 Months or Most Recently Relevant to Health Maintenance Insurance [address] [place] [address] MEDICARE PART A AND B [facility] [id number] * Guarantor: JACKLYN SCHULTZ Account Type Relation to Patient Date of Phone Billing Address Personal/Family [address] [place] [address] RX ALLWIN DATA Medicare Part B RX [employer] RX Member Subscriber Plan / Payer (Ef fective 2022-Present) Name:Schultz, Jacklyn Faiza Relation to Subscriber:Self Name:Schultz, Jacklyn E Payer ID:Not on file Group ID:[id number] Type:RX Commercial Address: [address] Advance Directives For more information, please contact: [phone] * Full Code (Latest Code Status on File) Date Activated Date Inactivated Comments 09/15/2023 9:27 AM 09/16/2023 3:00 PM * Full Code Date Activated Date Inactivated Comments 10/14/2022 10:54 AM 10/14/2022 7:14 PM * Full Code Date Activated Date Inactivated Comments 10/14/2022 5:58 AM 10/14/2022 10:54 AM * Full Code Date Activated Date Inactivated Comments 06/22/2022 6:49 AM 06/23/2022 6:43 PM * Full Code Date Activated Date Inactivated Comments 06/10/2022 3:20 PM 06/17/2022 5:55 PM Care Teams Car Escort Relationship Specialty Start Date End Date Eliseo Leigh MD [address] [address] PCP - General Family Practice 01/30/24
--- OUTSIDE RECORDS SUMMARY | 2024-12-03 12:26 | XMS_ITS | Encounter Summary ---
Author Organization [facility] Address [address] [place] [address] Care Team Providers Care Neck Band Setter Name Role Phone Eliseo Leigh MD Primary Care Provider [phone] Encounter Details Date Type Department Care Team (Latest Contact Info) Description 09/12/1998 Outpatient Historical [facility] Tony Pollard MD NO ADDRESS ON FILE Unspecified closed fracture of ankle (Primary Dx) Social History Tobacco Use Types Packs/Day Years Used Date Smoking Tobacco: Never Assessed Comments Unknown Sex and Gender Information Value Date Recorded Sex Assigned at Not on file Legal Sex Female 3:08 AM PETROLEUM GEOLOGIST Gender Identity Not on file Sexual Orientation Not on file documented as of this encounter Plan of Treatment Not on file documented as of this encounter Visit Diagnoses Diagnosis Unspecified closed fracture of ankle- Primary documented in this encounter Care Teams Neck Band Setter Relationship Specialty Start Date End Date Eliseo Leigh MD [address] [address] [place] [phone] PCP - General 04/15/04 11/30/21 documented as of this encounter
--- OUTSIDE RECORDS SUMMARY | 2024-12-03 12:26 | XMS_ITS | Encounter Summary ---
Author Organization [facility] Address [address] [place] [facility] [place] [address] Care Team Providers Care Sales Representative Livestock Name Role Phone Eliseo Leigh MD Primary Care Provider [phone] Encounter Details Date Type Department Care Team (Late st Contact Info) Description 05/08/2007 Outpatient Historical [facility] [place] [address] [facility] [place] [phone] Social History Tobacco Use Types Packs/Day Years Used Date Smoking Tobacco: Never Assessed Comments No Sex and Gender Information Value Date Recorded Sex Assigned at Not on file Legal Sex Female 3:08 AM OCC THER Gender Identity Not on file Sexual Orientation Not on file documented as of this encounter Plan of Treatment Not on file documented as of this encounter Visit Diagnoses Not on filedocumented in this encounter Care Teams Sales Representative Livestock Relationship Specialty Start Date End Date Eliseo Leigh MD [address] [place] [phone] PCP - General 04/15/04 11/30/21 documented as of this encounter
--- OUTSIDE RECORDS SUMMARY | 2024-12-03 12:26 | XMS_ITS | Encounter Summary ---
Author Organization [facility] Address [address] [place] [address] Care Team Providers Care Incident Handler Name Role Phone Eliseo Leigh MD Primary Care Provider [phone] Encounter Details Date Type Department Care Team (Late st Contact Info) Description 08/08/2000 Outpatient Historical [facility] Yimi Buenrostro MD [address] [place] [address] Routine medical exam (Primary Dx); Unspecified essential hypertension Social History Tobacco Use Types Packs/Day Years Used Date Smoking Tobacco: Never Assessed Comments Unknown Sex and Gender Information Value Date Recorded Sex Assigned at Not on file 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
--- OUTSIDE RECORDS SUMMARY | 2024-12-03 12:26 | XMS_ITS | Encounter Summary ---
Author Organization [facility] Address [address] [place] [facility] [place] [address] Care Team Providers Care Training And Development Director Name Role Phone Eliseo Leigh MD Primary Care Provider Encounter Details Date Type Department Care Team (Latest Contact Info) Description 05/27/2007 Outpatient Historical [facility] ADMISS[facility] Eliseo Leigh MD [address] [facility] [address] [place] [phone] Abn Find-Musculoskel Sys Social History Tobacco Use Types Packs/Day Years Used Date Smoking Tobacco: Never Assessed Comments No Sex and Gender Information Value Date Recorded Sex Assigned at Not on file 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
--- OUTSIDE RECORDS SUMMARY | 2024-12-03 12:26 | XMS_ITS | Clinical Summary ---
Author Organization [facility] Address [address] [address] Care Team Providers Care Manager Of Finance Name Role Phone Eliseo Leigh MD Primary Care Provider Allergies Active Allergy Reactions Criticality Noted Date Comments Homar Inhibitors 08/14/2024 Caused kidney issues per patient Codeine Low 08/14/2024 Covid-19 (Mrna) Vaccine Rash Low 12/11/2020 Ezetimibe 08/14/2024 Weakness, feeling flush Statins Low 08/14/2024 Weakness Medications acetaminophen (TYLENOL) 500 MG tablet Take 500 mg by mouth every 6 hours as needed Active amLODIPine (NORVASC) 5 MG tablet Take 5 mg by mouth in the morning. 5 Active Calcium-Vitamin D-Vitamin K 500-100-40 MG-UNT-MCG chewable tablet Chew 1 tablet in the morning. Active cholecalciferol (VITAMIN D-3) 1.25 MG (06618 UT) capsule Take 50,000 Units by mouth once a week 4 Active clopidogrel (PLAVIX) 75 MG tablet Take 75 mg by mouth in the morning. 1 Active cyanocobalamin (VITAMIN B-12) 1000 MCG/ML injection Inject 1,000 mcg into the shoulder, thigh, or buttocks every 30 (thirty) days 1 Active Docusate Sodium (DSS) 100 MG capsule Take 100 mg by mouth in the morning and 100 mg in the evening. 4 Active famotidine (PEPCID) 40 MG tablet Take 40 mg by mouth in the morning and 40 mg in the evening. 5 Active FLUoxetine (PROzac) 20 MG capsule Take 40 mg by mouth 1 (one) time each day 1 Active furosemide (LASIX) 40 MG tablet Take 40 mg by mouth if needed 4 Active hydrOXYzine (ATARAX) 25 MG tablet Take 25 mg by mouth every 8 (eight) hours if needed for itching, allergies or anxiety 5 Active isosorbide mononitrate (IMDUR) 30 MG 24 hr tablet Take 30 mg by mouth every morning Active levothyroxine (SYNTHROID, LEVOTHROID) 125 MCG tablet Take 125 mcg by mouth in the morning. 1 Active losartan (COZAAR) 50 MG tablet Take 50 mg by mouth 1 (one) time each day 1 Active nitroglycerin (NITROSTAT) 0.[address] 0.4 mg under the tongue every 5 minutes as needed 1 Active pantoprazole (PROTONIX) 40 MG EC tablet Take 40 mg by mouth in the morning. 1 Active potassium chloride (K-TAB) 20 MEQ CR tablet Take 20 mEq by mouth in the morning. 3 Active propafenone (RHTHYMOL) 150 MG tablet Take 150 mg by mouth every 8 (eight) hours Active sertraline (ZOLOFT) 25 MG tablet Take 25 mg by mouth 1 (one) time each day Active sotalol (BETAPACE) 160 MG tablet Take 160 mg by mouth in the morning and 160 mg in the evening. 1 Active triamcinolone (NASACORT) 55 MCG/ACT nasal inhaler Administer 1 spray into affected nostril(s) in the morning. Active clobetasol (TEMOVATE) 0.05 % cream in the morning and in the evening. 5 Active clotrimazole (MYCELEX) 10 MG lori 5 (five) times a day 5 Active mupirocin (BACTROBAN) 2 % ointment in the morning and in the evening. 5 Active Active Problems No known active problems Immunizations Immunization Administration Dates Next Due Influenza (IM) Preservative Free 11/09/2012,10/09,11/21/2008 Influenza Split High Dose Pr eservative Free IM 11/21/2023,10/30/2019,11/08/2018,11/11,10/18/2016,11/13/2015,2014 ,11/15/2013,11/04/2011,11/03/2010 Pneumococcal Conjugate 13-Valent 10/30/2019,03/10 Pneumococcal Polysaccharide 03/12/2008, 1 Tdap 03/12/2008 Zoster 09/07/2011 Family History Medical History Relation Comments Suicidality Father Aneurysm Mother Relation Status Comments Father Mother Social History Tobacco Use Types Packs/Day Years Used Date Smoking Tobacco: Never Smokeless Tobacco: Never Tobacco Cessation:Counseling Given: Not Answered Alcohol Use Standard Drinks/Week Comments Never 0 (1 standard drink = 0.6 oz pur e alcohol) Comments Unknown Sex and Gender Information Value Date Recorded Sex Assigned at Not on file Legal Sex Female 12:18 PM EDT Gender Identity Not on file Sexual Orientation Not on file Last Filed Vital Signs Vital Sign Reading Time Taken Comments Blood Pressure 122/72 08/16/2024 12:51 PM CDT Pulse 64 08/16/2024 12:51 PM CDT Temperature - - Respiratory Rate - - Oxygen Saturation 97% 08/16/2024 12:51 PM CDT Inhaled Oxygen Concentration - - Weight 66.5 kg (146 lb 8 oz) 08/16/2024 12:51 PM CDT Height 160 cm (5' 3 ) 08/16/2024 12:51 PM CDT Body Mass Index 25.95 08/16/2024 12:51 PM CDT Plan of Treatment Upcoming Encounters Date Type Department Care Team (Late st Contact Info) Description 12/27/2024 2:00 PM CITY WELLNESS COORDINATOR Office Visit [facility] [address] [place], [place] [phone] Ellen Vela NP [address] [facility] [address] [place] [address] Health Maintenance Due Date Last Done Comments Influenza Vaccine (#1) 2024 4, 10/30/2019, 11/08/2018, Additional history exists Pneumococcal Vaccine: 50+ Years Completed 10/30/2019, 03/21/2014, 03/12/2008, Additional history exists Hepatitis B Vaccine Aged Out No longe r eligible based on patient's age to complete this topic Insurance [address] [place] [address] Medicare [facility] Care Teams Manager Of Finance Relationship Specialty Start Date End Date Eliseo Leigh MD [address] [facility] [address] [place] [phone] PCP - General Family Medicine 05/24/24
--- OUTSIDE RECORDS SUMMARY | 2024-12-03 12:26 | XMS_ITS | Encounter Summary ---
Author Organization [facility] Address [address] [place] [address] Care Team Providers Care Cone Winder Name Role Phone Eliseo Leigh MD Primary Care Provider [phone] Encounter Details Date Type Department Care Team (Late st Contact Info) Description 05/01/[address] 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 The patient reports continued chest tenderness from open heart surgery in December,. COMPARISON: Comparison is made with multiple prior examinations, the most recent dated 05/09/08. BREAST COMPOSITION: Heterogeneously dense. FINDINGS: In the left breast upper inner quadrant, there is a possible nodule with vague associated distortion. Recommend repeat CC, repeat MLO, and true lateral images, along with spot compression images in the CC and MLO projections as the first steps in further evaluation. No suspicious masses or microcalcifications have developed on the right. This mammogram was also analyzed by the Computer Aided Detection system (CAD), R2 ImageChecker, Version 3.1. CONCLUSION: Possible nodule in the left breast. RECOMMENDATIONS: Further evaluation with additional mammographic images as above. Procedure Note Rubina Serrano MD - 06/11/2009 BILATERAL SCREENING MAMMOGRAM WITH CAD: 06/05/09 HISTORY: No family history of breast cancer and no current complaints.The patient reports continued chest tenderness from open heart surgery inNov2008. COMPARISON: Comparison is made with multiple prior examinations, the mostrecent dated 05/09/08. BREAST COMPOSITION: Heterogeneously dense. FINDINGS: In the left breast upper inner quadrant, there is a possiblenodule with vague associated distortion. Recommend repeat CC, repeat MLO,and true lateral images, along with spot compression images in the CC andMLO projections as the first steps in further evaluation. No suspiciousmasses or microcalcifications have developed on the right. This mammogram was also analyzed by the Computer Aided Detection system(CAD), R2 ImageChecker, Version 3.1. CONCLUSION: Possible nodule in the left breast. RECOMMENDATIONS: Further evaluation with additional mammographic imagesas above. Eliseo Leigh MD MAMMO ORDERABLES Final Result documented in this encounter Visit Diagnoses Diagnosis Other screening mammogram Other screening mammogram documented in this encounter Care Teams Cone Winder Relationship Specialty Start Date End Date Eliseo Leigh MD [address] [phone] PCP - General 04/15/04 11/30/21 documented as of this encounter
--- OUTSIDE RECORDS SUMMARY | 2024-12-03 12:26 | XMS_ITS | Encounter Summary ---
Author Organization [facility] Address [address] [place] [address] Care Team Providers Care Manager Wellness Name Role Phone Eliseo Leigh MD Primary Care Provider [phone] Reason for Referral * Outpatient Services (Routine) - Closed Specialty Diagnoses / Procedures Referred By Michael t Referred To Contact Diagnoses Other screening mammogram Procedures MAMMO DIGITAL SCREEN BILAT Eliseo Leigh MD [address] [address] Phone: tel: fax: Referral ID Status Reason Start Date Expiration Date Visits Re quested Visits Authorized [id number] Closed 08/07/2013 09/07/2014 1 1 Encounter Details Date Type Department Care Team (Latest Contact Info) Description 08/07/2013 Ancillary Orders [facility] Pre-Registration [place] CALL TO MAKE APPOINTMENT ONLY [address] [place] [address] Eliseo Leigh MD [address] [address] Other screening mammogram (Primary Dx) Social History Tobacco Use Types Packs/Day Years Used Date Smoking Tobacco: Never Smokeless Tobacco: Never Alcohol Use Standard Drinks/Week Comments No 0 (1 standard drink = 0.6 oz pur e alcohol) Comments No Sex and Gender Information Value Date Recorded Sex Assigned at Not on file 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 This examination was reviewed with the aid of a computer-aided detection system(CAD). The breast tissue is dense. No significant new findings since the prior mammogram(s). Procedure Note Sara Faye MD - 09/14/2013 Bilateral Mammogram Reason for Exam: Screening Comparison: Compared to: 08/31/2012 MAMMO DIGITAL SCREEN BILAT, 08/19/2011MAMMO DIGITAL SCREEN BILAT, 07/16/2010 MAMMO DIGITAL SCREEN BILAT,06/05/2009 MAMMO SCREENING BILAT, 06/05/2009 MAMMO DIGITIZED STUDY,05/09/2008 MAMMO DIGITIZED STUDY Findings: Bilateral CC and MLO views were obtained. This examination was reviewed with the aid of a computer-aided detectionsystem(CAD). The breast tissue is dense. No significant new findings since the prior mammogram(s). Eliseo Leigh MD MAMMO ORDERABLES Final Result documented in this encounter Visit Diagnoses Diagnosis Other screening mammogram- Primary Other screening mammogram documented in this encounter Care Teams Manager Wellness Relationship Specialty Start Date End Date Eliseo Leigh MD [address] [phone] PCP - General 04/15/04 11/30/21 documented as of this encounter
--- OUTSIDE RECORDS SUMMARY | 2024-12-03 12:26 | XMS_ITS | Encounter Summary ---
Author Organization [facility] Address [address] [facility] [place] [address] Care Team Providers Care Jewel Gauger Name Role Phone Eliseo Leigh MD Primary Care Provider [phone] Encounter Details Date Type Department Care Team (Late st Contact Info) Description 08/23/2000 Outpatient Historical [facility] Yimi Buenrostro MD [address] [place] [address] Unspecified essential hypertension (Primary Dx) Social History Tobacco Use Types Packs/Day Years Used Date Smoking Tobacco: Never Assessed Comments Unknown Sex and Gender Information Value Date Recorded Sex Assigned at Not on file 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
--- OUTSIDE RECORDS SUMMARY | 2024-12-03 12:26 | XMS_ITS | Encounter Summary ---
Author Organization [facility] Address [address] [facility] [place] [address] Care Team Providers Care Unit Leader Name Role Phone Eliseo Leigh MD Primary Care Provider [phone] Encounter Details Date Type Department Care Team (Latest Contact Info) Description 08/01/1998 Outpatient Historical 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
--- OUTSIDE RECORDS SUMMARY | 2024-12-03 12:26 | XMS_ITS | Encounter Summary ---
Author Organization [facility] Address [address] [place] [address] Care Team Providers Care Custom Protection Officer Name Role Phone Eliseo Leigh MD Primary Care Provider [phone] Encounter Details Date Type Department Care Team (Late st Contact Info) Description 05/22/2007 Outpatient Historical 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 History: Back pain. Prior pelvic fracture. The lumbar vertebrae are normal in height. The conus is normal. The precontrast images provided limited visualization of abnormal signal within the superior sacral ala. The postcontrast images better demonstrate apparent bilateral sacral alar fractures and diffuse abnormal sacral alar enhancement, greater on the right. L1-L2: Very mild annular bulge. L2-L3: Mild disc space height loss and a very slight retrolisthesis and mild endplate degenerative changes and a mild disc bulge. L3-L4: Mild disc bulge and facet degenerative changes. L4-L5: Mild disc space height and diffuse signal loss and mild anterior subluxation. A moderate disc bulge coupled with severe facet degenerative changes and ligamentum flavum hypertrophy results in moderate to severe central canal and mild bilateral foraminal stenosis. L5-S1: Moderate disc space height and diffuse signal loss and slight anterior subluxation. Mild disc bulge and moderate left and mild right facet degenerative changes. Moderate left foraminal narrowing. Impression: 1. Extensive abnormal enhancement involving the majority of the bilateral sacrum and apparent bilateral sacral fractures consistent with history of prior pelvic trauma. Obtain correlation with a dedicated sacrococcygeal MRI or bone scan as clinically indicated. 2. Mild disc bulges from L1-L2 to L3-L4 without significant central canal or foraminal stenosis. 3. Grade 1 spondylolisthesis at L4-L5, a mild disc bulge and severe facet degenerative changes resulting in moderate to severe central canal stenosis which may affect the bilateral L5 nerve roots. 4. L5-S1 degenerative disc disease and facet degenerative changes greater on the left and moderate left foraminal narrowing. - Dictated By: Polo Rodrigez M.D. Electronically Signed By: Polo Rodrigez M.D. Date Signed: 05/25/07 SDM ADDENDUM: The examination was performed without contrast and with 15 mL of [employer]. [facility] 1103 Dictated By: Polo Rodrigez M.D. Electronically Signed By: Polo Rodrigez M.D. Date Signed: 06/30/07 [facility] Procedure Note Santos Rodrigez - 06/30/2007 Lumbar spine MRI without and with contrast. History: Back pain. Prior pelvic fracture. The lumbar vertebrae are normal in height. The conus is normal. The precontrast images provided limited visualization of abnormal signalwithin the superior sacral ala. The postcontrast images better demonstrate apparent bilateral sacral alarfractures and diffuse abnormal sacral alar enhancement, greater on the right. L1-L2: Very mild annular bulge. L2-L3: Mild disc space height loss and a very slight retrolisthesis andmild endplate degenerative changes and a mild disc bulge. L3-L4: Mild disc bulge and facet degenerative changes. L4-L5: Mild disc space height and diffuse signal loss and mild anteriorsubluxation. A moderate disc bulge coupled with severe facet degenerative changes and ligamentum flavumhypertrophy results in moderate to severe central canal and mild bilateral foraminal stenosis. L5-S1: Moderate disc space height and diffuse signal loss and slightanterior subluxation. Mild disc bulge and moderate left and mild right facet degenerative changes.Moderate left foraminal narrowing. Impression: 1. Extensive abnormal enhancement involving the majority of the bilateralsacrum and apparent bilateral sacral fractures consistent with history of prior pelvic trauma. Obtaincorrelation with a dedicated sacrococcygeal MRI or bone scan as clinically indicated. 2. Mild disc bulges from L1-L2 to L3-L4 without significant central canalor foraminal stenosis. 3. Grade 1 spondylolisthesis at L4-L5, a mild disc bulge and severe facetdegenerative changes resulting in moderate to severe central canal stenosis which may affect thebilateral L5 nerve roots. 4. L5-S1 degenerative disc disease and facet degenerative changes greateron the left and moderate left foraminal narrowing. - Dictated By: oPlo Rodrigez M.D. Electronically Signed By: Polo Rodrigez M.D. Date Signed: 05/25/07 SDM ADDENDUM: The examination was performed without contrast and with 15 mL ofOptimark. [facility] 1103 Dictated By: Polo Rodrigez M.D. Electronically Signed By: Polo Rodrigez M.D. Date Signed: 06/30/07 [facility] Eliseo Leigh MD MR ORDERABLES Edited documented in this encounter Visit Diagnoses Diagnosis Lumbago documented in this encounter Care Teams Custom Protection Officer Relationship Specialty Start Date End Date Eliseo Leigh MD [address] [phone] PCP - General 04/15/04 11/30/21 documented as of this encounter
--- OUTSIDE RECORDS SUMMARY | 2024-12-03 12:26 | XMS_ITS | Encounter Summary ---
Author Organization [facility] Address [address] [place] [address] Care Team Providers Care Drill Press Set Up Operator Name Role Phone Eliseo Leigh MD Primary Care Provider [phone] Reason for Referral * Radiology Services (Routine) - Closed Specialty Diagnoses / Procedures Referred By Contac t Referred To Contact Radiology Diagnoses Encounter for screening mammogram for malignant neoplasm of breast Procedures MAMMO SCRN BILAT 3D OLEG W OR WO CAD Eliseo Leigh MD [address] [facility] [address] [place] [address] Phone: tel: fax: [facility] [place] [address] [facility] [address] [place] [address] Phone: tel: fax: Referral ID Status Reason Start Date Expiration Date Visits Re quested Visits Authorized [id number] Closed 11/21/2017 12/22/2018 1 1 Encounter Details Date Type Department Care Team (Latest Contact Info) Description 11/21/2017 Ancillary Orders [facility] Pre-Registration [place] CALL TO MAKE APPOINTMENT ONLY [address] [place] [address] Eliseo Leigh MD [address] [phone] Encounter for screening mammogram for malignant neoplasm of breast Social History Tobacco Use Types Packs/Day Years Used Date Smoking Tobacco: Never Smokeless Tobacco: Never Alcohol Use Standard Drinks/Week Comments No 0 (1 standard drink = 0.6 oz pur e alcohol) Comments No Sex and Gender Information Value Date Recorded Sex Assigned at Not on file Legal Sex Female 3:08 AM 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 AGENT Gender Identity Not on file Sexual Orientation Not on file Occupation Industry Job Start Date Job End Date Not on file Not on file Not on file Not on file Not on file Not on file Not on file Not on file documented as of this encounter Plan of Treatment Not on file documented as of this encounter Results * MAMMO SCRN BILAT 3D OLEG W OR WO CAD (02/02/2018 2:41 PM OUTBOUND SALES AGENT) Anatomical Region Laterality Modality Breast Bilateral Mammography Narrative 02/08/2018 10:23 AM OUTBOUND SALES AGENT Bilateral Digital Mammogram with CAD and 3D Tomography Reason for Exam: Screening Comparison: Compared to: 11/11/2016 MAMMO SCREEN BILAT W OR WO CAD, 10/09/2015 MAMMO DIGITAL SCREEN BILAT, 10/03/2014 MAMMO DIGITAL SCREEN BILAT, 09/13/2013 MAMMO DIGITAL SCREEN BILAT, and 08/31/2012 MAMMO DIGITAL SCREEN BILAT Technique: 3D MLO and CC digital tomosynthesis images were acquired and synthesized 2D images (C view) were generated. This digital mammogram was also analyzed by the Computer Aided Detection System CAD). Breast Composition: The breasts are heterogeneously dense, which may obscure small masses. There are no suspicious masses, areas of architectural distortions, or microcalcifications to suggest malignancy. No significant new findings since the prior mammogram(s). Eliseo Leigh MD MAMMO ORDERABLES Final Result documented in this encounter Visit Diagnoses Diagnosis Encounter for screening mammogram for malignant neoplasm of breast Other screening mammogram Encounter for screening mammogram for malignant neoplasm of breast Other screening mammogram documented in this encounter Care Teams Drill Press Set Up Operator Relationship Specialty Start Date End Date Eliseo Leigh MD [address] [address] PCP - General 04/15/04 11/30/21 documented as of this encounter
--- OUTSIDE RECORDS SUMMARY | 2024-12-03 12:26 | XMS_ITS | Encounter Summary ---
Author Organization [facility] Address [address] [place] [address] Care Team Providers Care Form Grader Operator Name Role Phone Eliseo Leigh MD Primary Care Provider [phone] Reason for Referral * Outpatient Services (Routine) - Closed Specialty Diagnoses / Procedures Referred By Michael t Referred To Contact Diagnoses Other screening mammogram Procedures MAMMO DIGITAL SCREEN BILAT Eliseo Leigh MD [address] [address] Phone: tel: fax: Referral ID Status Reason Start Date Expiration Date Visits Re quested Visits Authorized [id number] Closed 05/29/2010 11/25/2010 1 1 Encounter Details Date Type Department Care Team (Latest Contact Info) Description 05/29/2010 Ancillary Orders [facility] Pre-Registration [place] CALL TO MAKE APPOINTMENT ONLY [address] [place] [address] Eliseo Leigh MD [address] [address] Other screening mammogram Social History Tobacco Use Types Packs/Day Years Used Date Smoking Tobacco: Never Alcohol Use Standard Drinks/Week Comments No 0 (1 standard drink = 0.6 oz pur e alcohol) Comments No Sex and Gender Information Value Date Recorded Sex Assigned at Not on file 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 This examination was reviewed with the aid of a computer-aided detection system(CAD). The breast tissue density is average. No significant new findings since the prior mammogram(s). Procedure Note Sara Faye MD - 07/17/2010 Bilateral Mammogram Reason for Exam: Screening Comparison: Comparison is made with the prior exam(s) dated 05.06.0606.05.09 Findings: Bilateral CC and MLO views were obtained. This examination was reviewed with the aid of a computer-aided detectionsystem(CAD). The breast tissue density is average. No significant new findings since the prior mammogram(s). Eliseo Leigh MD MAMMO ORDERABLES Final Result documented in this encounter Visit Diagnoses Diagnosis Other screening mammogram Other screening mammogram documented in this encounter Care Teams Form Grader Operator Relationship Specialty Start Date End Date Eliseo Leigh MD [address] [address] PCP - General 04/15/04 11/30/21 documented as of this encounter
--- OUTSIDE RECORDS SUMMARY | 2024-12-03 12:26 | XMS_ITS | Clinical Summary ---
Author Organization [facility] Address [address] [place] [address] Care Team Providers Care Sewing Techniques Demonstrator Name Role Phone Unavailable Primary Care Provider Unavailabl e Allergies Active Allergy Reactions Criticality Noted Date Comments Homar Inhibitors Unknown Codeine Headache Low Ezetimibe Unknown Jmthelo-Xvm-Aqy Reductase Inhibitors Muscle Pain,Weakness Low Medications calcium-vitami n D3-vitamin K 500-100-40 mg-unit-mcg Tablet, ChewableIndica tions:Headache s due to old head injury Take 1 Tab by mouth daily. Active Syringe with Needle, Disp, (BD Luer-Nirav Syringe) 3 mL 25 x 5/8 Syringe Inject 1 ml every 30 days 50 Each 0 Active cyanocobalamin (VITAMIN B-12) 1,000 mcg/mL Solution Inject 1 mL (1,000 mcg) by intramuscular injection every 30 days. 10 mL 1 1 Active losartan (COZAAR) 50 mg tablet Take 1 tablet by mouth once daily 90 Tablet 3 1 Active pantoprazole (PROTONIX) 40 mg Tablet, Delayed Release (E.C.) Take 1 Tablet (40 mg) by mouth daily. 90 Tablet 3 1 Active clopidogreL (PLAVIX) 75 mg Tablet Take 1 Tablet (75 mg) by mouth daily. 90 Tablet 3 1 Active amLODIPine (NORVASC) 2.5 mg tablet Take 1 Tablet (2.5 mg) by mouth daily. 90 Tablet 3 1 Active levothyroxine 125 mcg tablet TAKE ONE TABLET BY MOUTH EVERY DAY 90 Tablet 3 1 Active FLUoxetine (PROzac) 20 mg capsule TAKE TWO CAPSULES BY MOUTH DAILY 180 Capsule 3 1 Active nitroglycerin (NITROSTAT) 0.[address], [address] 1 Tablet (0.4 mg) under tongue every 5 minutes as needed for Chest Pain. 20 Tablet 1 Active sotaloL (sotalol AF) 160 mg Tablet Take 1 Tablet (160 mg) by mouth 2 times daily. 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 Other seborrheic keratosis 09/17/2008 Actinic keratosis 08/03/2007 Vitiligo 08/03/2007 Essential hypertension Osteoarthrosis, unspecified whether generalized or localized, unspecified site Recurrent major depressive disorder, in partial remission Mixed hyperlipidemia Resolved Problems Problem Noted Date Diagnosed Date Resolved Date Combined form of senile cataract 05/08/2013 05/24/2013 Other nonspecific abnormal c ardiovascular system function study 12/11/2008 10/25/2017 BCE (basal cell epithelioma), leg 08/03/2007 09/17/2008 Acute pancreatitis 4 Immunizations Immunization Administration Dates Next Due (ADACEL/BOOSTRIX)(10 YR UP) TDAP VACCINE, 0.5ML, IM 03/12/2008 (PNEUMOVAX 23)(50 YRS UP) PN EUMOCOCCAL POLYSACCHARIDE (PPV23) 0.5 ML, IM 03/12/2008,02/08/2000 (PREVNAR 13)(6 WKS UP) PNEUM OCOCCAL CONJUGATE (PCV13) 0.5 ML, IM 03/21/2014 Influenza Seasonal Unspecifi ed Formulation IM 12/08/2006,01/11/2006,12/02/2004,11/25,12/12/2000 [...] Glaucoma Neg Hx Macular Degen Neg Hx Ovarian Cancer Neg Hx Strabismus Neg Hx Relation Name Status Comments Father Mother Other Social History Tobacco Use Types Packs/Day Years Used Date Smoking Tobacco: Never Smokeless Tobacco: Never Tobacco Cessation:Counseling Given: No Alcohol Use Standard Drinks/Week Comments No 0 (1 standard drink = 0.6 oz pur e alcohol) Comments No Sex and Gender Information Value Date Recorded Sex Assigned at Not on file Legal Sex Female 3:08 AM BOX ATTACHER Gender Identity Not on file Sexual Orientation Not on file Occupation Industry Job Start Date Job End Date Not on file Not on file Not on file Not on file Not on file Not on file Not on file Not on file Last Filed Vital Signs Vital Sign Reading Time Taken Comments Blood Pressure 142/80 07/28/2020 2:23 PM CDT Pulse 87 07/09/2020 11:14 AM CDT Temperature 36.4 C (97.5 F) 07/09/2020 11:14 AM CDT Respiratory Rate 16 07/09/2020 11:14 AM CDT Oxygen Saturation 96% 07/09/2020 11:14 AM CDT Inhaled Oxygen Concentration - - Weight 75.3 kg (166 lb) 07/09/2020 11:14 AM CDT Height 162.6 cm (5' 4 ) 07/09/2020 11:14 AM CDT Body Mass Index 28.49 07/09/2020 11:14 AM CDT Plan of Treatment Health Maintenance Due Date Last Done Comments ZOSTER VACCINE (2 of 3) 11/02/2011 09/07/2011 RSV VACCINE (60+ or ) (1 - 1-dose 75+ series) 2013 COLORECTAL SCREENING 03/15/2017 03/15/2012, 03/15/19 13 DTAP/TDAP/TD VACCINES (2 - T d or Tdap) 03/12/2018 03/12/2008 OSTEOPOROSIS SCREENING 09/03/2019 5, 09/02/2014, 03/27/2012, Additional history exists INFLUENZA VACCINE (#1) 2024 0, 11/08/2018, 11/11/2017, Additional history exists PNEUMOCOCCAL VACCINE 50+ YEARS Completed 0 10/30/2019, 03/21/2014, 03/12/2008, Additional history exists Medical Devices Implanted Type Area Disability Aide Device Identifier Shelf Expiration Date Model / Serial / Lot Log [id number] - Cement - 1 - Simplex W/Tobra 6197-9-001 Implanted:Qty: 1 on 11/16/2010 at [facility] Cement Right: Knee [employer] 05/08/2012 6197-9-0 01 / / [id number] Simplex W/Tobra [id number] - Sna Implanted:Qty: 2 on 03/01/2011 at [facility] Cement Left: Knee [employer] 09/29/2012 6197-9-0 01 / NA / [id number] Cement Activos W/Judd C10a Implanted:02/2014 by Scott Posadas MD (Quantity not on file) Cement Vertebrae [employer] - SPINAL fka KYPHON 10/07/2016 C10A / / [id number] Description:T12 Kyphoplasty Lens Io Tecnis 1pc 22 [id number] - [id number] Implanted:Qty: 1 on 05/24/2013 by Angel Muse MD at [facility] Left: Eye [employer] 01/23/2017 [id number] / [id number] / Log [id number] - Bard Patches, Pledgets, Jonelle, Fabrics - 1 - [place] Ptfe Thck 1.6mmx2.5x2.5c m [id number] Implanted:Qty: 1 on 12/18/2008 at [facility] Graft CR BARD[employer] JOHNNIE VASC INC 01/07/2013 [id number] / / [id number] Log [id number] - Bard Patches, Pledgets, Jonelle, Fabrics - 2 - [place] Ptfe Thck 1.6mmx2.5x2.5c m [id number] Implanted:Qty: 1 on 12/18/2008 at [facility] Graft CR BARD[employer]IE [employer] 07/08/2013 [id number] / / [id number] Log [id number] - Laurie Total Knee - 1 - Insert Tib Trthln X3 Cs 5531-G-411 Implanted:Qty: 1 on 11/16/2010 at [facility] Knee Right: Knee [employer] 08/08/2015 5531-G-4 11 / / [id number] Log [id number] - Economy Total Knee - 1 - Comp Fem Trthln Cr Sz4 Rt 5510-F-402 Implanted:Qty: 1 on 11/16/2010 at [facility] Knee Right: Knee [employer] 07/09/2015 5510-F-4 02 / / [id number] Log [id number] - Economy Total Knee - 1 - Patella Trthln Sym X3 5550-G-339 Implanted:Qty: 1 on 11/16/2010 at [facility] Knee Right: Knee LAURIE- HOWMEDICA INT INC 08/08/2015 5550-G-3 39 / / [id number] Log [id number] - Laurie Total Knee - 1 - Comp Tib Triathlon Cmnt 5520-B-400 Implanted:Qty: 1 on 11/16/2010 at [facility] Knee Right: Knee [employer] 09/08/2015 5520-B-4 00 / / FHUM Comp Tib Triathlon Cmnt 5520-B-400 - Sna Implanted:Qty: 1 on 03/01/2011 at [facility] Knee Left: Knee [employer] 01/30/2016 5520-B-4 00 / NA / GMON Comp Fem Trthln Cr Sz5 Lt 5510-F-501 - Sna Implanted:Qty: 1 on 03/01/2011 at [facility] Knee Left: Knee [employer] 01/29/2015 5510-F-5 01 / NA / SYRCK Patella Trthln Sym Poly 5550-L-339 - Sna Implanted:Qty: 1 on 03/01/2011 at [facility] Knee Left: Knee LAURIE- [employer] INT [employer] 10/31/2015 5550-L-3 39 / NA / [id number] Ins Tib Triathlon Sz4 11mm 5531-P-411 - Sna Implanted:Qty: 1 on 03/01/2011 at [facility] Knee Left: Knee [employer] 09/30/2015 5531-P-4 11 / NA / [id number] Pacemaker Teresa Xt Surescan [id number] Pacemaker [employer]- CRM - BULK BUY [id number] 11/21/2019 [id number] / [id number] 3H / Pin Headless Fltd 02/14 [id number] Implanted:Qty: 1 on 11/16/2010 at [facility] Pin [employer] 7650-203 8A / / Description:moved down from [facility] list- Implant Type-TS [id number] - [id number] Implanted:Qty: 1 on 12/18/2008 at [facility] Heart 05/08/2013 [id number] / [id number] / Description:Sorin[employer] Mitro flow Aortic Heart Valve (size 25mm) Procedures Procedure Name Priority Date/Time Associated Diagnosis Comments XR DEXA BONE DENSITY AXIAL 1 OR MORE SITES Routine 09/02/2014 1:04 PM CDT Menopausal disorder ENDOSCOPY, COLON, SCREENING Routine 03/15/2012 9:17 AM BOX ATTACHER Screening for colon cancer from Last 3 Months or Most Recently Relevant to Health Maintenance Results * XR DEXA BONE DENSITY AXIAL 1 OR MORE SITES (09/02/2014 1:04 PM CDT) Anatomical Region Laterality Modality Nuclear Medicine 09/02/2014 12:4 8 PM CDT Impressions 09/02/2014 1:24 PM CDT Impression: Since [...] hip. Procedure Note Sloan Perez MD - 09/02/2014 DEXA Evaluation of the Lumbar Spine and [...] Insurance [address] [place] [id number] MEDICARE PART A AND B [facility] RR [address] [place] [id number] RX [employer] RX Member Subscriber Plan / Payer (Ef fective 2015-Present) Name:Jacklyn Schultz Relation to Subscriber:Self Name:Jacklyn Schultz Payer ID:Not on file Group ID:[id number] Type:RX Medicare Part D Address: [place] [facility] DATA Medicare Part B Advance Directives For more information, please contact: [phone] Documents on File Type Date Recorded Patient Show Jumping Instructor Expl anation Advance Directive Living Will 05/23/2013 11:41 AM Advance Directive POA 11/16/2010 Advanc e Directive POA * Full Code (Latest Code Status on File) Date Activated Date Inactivated Comments 07/17/2018 2:35 PM 07/17/2018 6:58 PM * Full Code Date Activated Date Inactivated Comments 05/24/2013 1:02 PM 05/24/2013 4:38 PM * Full Code Date Activated Date Inactivated Comments 03/15/2012 9:17 AM 03/15/2012 2:37 PM * Full Code Date Activated Date Inactivated Comments 03/01/2011 9:10 AM 03/04/2011 5:51 PM * Full Code Date Activated Date Inactivated Comments 03/01/2011 6:50 AM 03/01/2011 9:10 AM
--- OUTSIDE RECORDS SUMMARY | 2024-12-03 12:26 | XMS_ITS | Encounter Summary ---
Author Organization [facility] Address [address] [facility] [place] [address] Care Team Providers Care Web User Experience Strategist Name Role Phone Eliseo Leigh MD Primary Care Provider [phone] Encounter Details Date Type Department Care Team (Late st Contact Info) Description 08/31/2000 Outpatient Historical [facility] Yimi Buenrostro MD [address] [place] [address] Hypopotassemia (Primary Dx) Social History Tobacco Use Types Packs/Day Years Used Date Smoking Tobacco: Never Assessed Comments Unknown Sex and Gender Information Value Date Recorded Sex Assigned at Not on file 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
--- OUTSIDE RECORDS SUMMARY | 2024-12-03 12:26 | XMS_ITS | Encounter Summary ---
Author Organization [facility] Address [address] [place] [address] Care Team Providers Care Mud Car Worker Name Role Phone Eliseo Leigh MD Primary Care Provider [phone] Encounter Details Date Type Department Care Team (Latest Contact Info) Description 06/11/2009 Ancillary Orders [facility] [address] [facility] [address] [place] [address] Eliseo Leigh MD [address] [facility] [address] [place] [address] Other (Abnormal) Findings on Radiological Examination of Breast Social History Tobacco Use Types Packs/Day Years Used Date Smoking Tobacco: Never Alcohol Use Standard Drinks/Week Comments No 0 (1 standard drink = 0.6 oz pur e alcohol) Comments No Sex and Gender Information Value Date Recorded Sex Assigned at Not on file Legal Sex Female 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 Left ML, MLO, and craniocaudal views were obtained and supplemented with a left craniocaudal spot compression view. The tissue disperses nicely and there is no evidence of mass or distortion. No suspicious finding is confirmed and there is no change compared with prior exams of 02.23.01 and 05.06.05. Patient received a result/recommendation letter. CONCLUSION: Additional views on the left show no persistent or suspicious findings. I would recommend a follow-up screening mammogram in one year. Procedure Note Laura Lopez MD - 06/23/2009 LEFT ADDITIONAL VIEWS: The patient had a screening exam on 06.05.09 andthere was thought to be an area of asymmetric density, possible subtledistortion, upper and slightly inner on the left. Left ML, MLO, and craniocaudal views were obtained and supplemented with aleft craniocaudal spot compression view. The tissue disperses nicely andthere is no evidence of mass or distortion. No suspicious finding isconfirmed and there is no change compared with prior exams of 02.23.01 and05.06.05. Patient received a result/recommendation letter. CONCLUSION: Additional views on the left show no persistent or suspiciousfindings. I would recommend a follow-up screening mammogram in oneyear. Eliseo Leigh MD MAMMO ORDERABLES Final Result documented in this encounter Visit Diagnoses Diagnosis Other (abnormal) findings on radiological examination of breast Other (abnormal) findings on radiological examination of breast documented in this encounter Care Teams Mud Car Worker Relationship Specialty Start Date End Date Eliseo Leigh MD [address] [phone] PCP - General 04/15/04 11/30/21 documented as of this encounter
--- OUTSIDE RECORDS SUMMARY | 2024-12-03 12:26 | XMS_ITS ---
Author Organization [facility] Address [address] [facility] [place] [address] Care Team Providers Care Trainmaster Name Role Phone Eliseo Leigh MD Primary Care Provider [phone] Active Problems Problem Noted Date Diagnosed Date Lichen planus 02/10/2024 Status post total replacement of right hip - 09/1401/19/2023 Chronic diastolic CHF (conge stive heart failure), NYHA class 2 06/22/2022 Severe aortic stenosis 06/22/2022 Status post transcatheter ao rtic valve replacement (TAVR) using bioprosthesis 06/22/2022 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 06/13/2022 Nonrheumatic mitral valve regurgitation 06/14/19 23 senior care current use of antiarrhythmic drug 05/2022 S/P [...] generalized or localized, unspecified site Mixed hyperlipidemia Current Treatment and Therapy Plans No current plan information found. Past Treatment and Therapy Plans No past plan information found. Lifetime Dose Tracking * Chemical Lifetime Dose Automatic Entry Manual Entr y Effective Dose 160.43 mSv 120.93 mSv 39.5 mSv Total DLP 4,242.54 DLP 2,820.54 DLP 1,422 DLP CTDIvol Max 86.86 mGy 48.06 mGy 38.8 mGy CTDIvol Min 36.56 mGy 0.06 mGy 36.5 mGy Fluoro 34.7 Minutes 0 Minutes 34.7 Minutes Air Kerma 503 mGy 0 mGy 503 mGy Dose Area Product (DAP) 121.09 Gy-cm2 0 Gy-cm2 121 .09 Gy-cm2 Resolved Problems Problem Noted Date Diagnosed Date [...]
--- OUTSIDE RECORDS SUMMARY | 2024-12-03 12:26 | XMS_ITS | Encounter Summary ---
Author Organization [facility] Address [address] [place] [address] Care Team Providers Care Recoater Name Role Phone Eliseo Leigh MD Primary Care Provider [phone] Encounter Details Date Type Department Care Team (Late st Contact Info) Description 08/23/2000 Outpatient Historical [facility] [address] [place] [address] Yimi Buenrostro MD [address] [place] [address] Osteoarthrosis, unspecified whether generalized or localized, unspecified site (Primary Dx); Unspecified essential hypertension; Hyperpotassemia; Unspecified hypothyroidism Social History Tobacco Use Types Packs/Day Years Used Date Smoking Tobacco: Never Assessed Comments Unknown Sex and Gender Information Value Date Recorded Sex Assigned at Not on file 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
--- OUTSIDE RECORDS SUMMARY | 2024-12-03 12:26 | XMS_ITS | Encounter Summary ---
Author Organization [facility] Address [address] [place] [address] Care Team Providers Care Construction Grip Name Role Phone Eliseo Leigh MD Primary Care Provider [phone] Encounter Details Date Type Department Care Team (Late st Contact Info) Description 08/08/2000 Outpatient Historical [facility] [address] [place] [address] Yimi Buenrostro MD [facility] [place] [address] Unspecified essential hypertension (Primary Dx); Migraine with aura, without mention of intractable migraine without mention of status migrainosus; Allergic rhinitis, cause unspecified; Osteoarthrosis, unspecified whether generalized or localized, unspecified site; Screening for malignant neoplasm of the cervix Social History Tobacco Use Types Packs/Day Years Used Date Smoking Tobacco: Never Assessed Comments Unknown Sex and Gender Information Value Date Recorded Sex Assigned at Not on file 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 Gender Identity Not on file Sexual Orientation Not on file documented as of this encounter Plan of Treatment Not on file documented as of this encounter Visit Diagnoses Diagnosis Unspecified essential hypertension- Primary Migraine with aura, without mention of intractable migraine without mention of status migrainosus Allergic rhinitis, cause unspecified Osteoarthrosis, unspecified whether generalized or localized, unspecified site Screening for malignant neoplasm of the cervix documented in this encounter Care Teams Construction Grip Relationship Specialty Start Date End Date Eliseo Leigh MD [address] [address] PCP - General 04/15/04 11/30/21 documented as of this encounter
--- OUTSIDE RECORDS SUMMARY | 2024-12-03 12:26 | XMS_ITS ---
Author Organization [facility] Address 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 Past Treatment and Therapy Plans No past plan information found. Lifetime Dose Tracking * Chemical Lifetime Dose Automatic Entry Manual Entr y Effective Dose 39.5 mSv 39.5 mSv 0 mSv Total DLP 1,422 DLP 1,422 DLP 0 DLP CTDIvol Max 38.8 mGy 38.8 mGy 0 mGy CTDIvol Min 36.5 mGy 36.5 mGy 0 mGy Resolved Problems Problem Noted Date Diagnosed Date Resolved Date Combined form of senile cataract 05/08/2013 05/24/2013 Other nonspecific abnormal c ardiovascular system function study 12/11/2008 10/25/2017 BCE (basal cell epithelioma), leg 08/03/2007 09/17/2008 Acute pancreatitis 4
--- OUTSIDE RECORDS SUMMARY | 2024-12-03 12:26 | XMS_ITS | Encounter Summary ---
Author Organization [facility] Address [address] [place] [address] Care Team Providers Care Coding Coordinator Name Role Phone Eliseo Leigh MD Primary Care Provider [phone] Reason for Referral * Outpatient Services (Routine) - Closed Specialty Diagnoses / Procedures Referred By Contac t Referred To Contact Diagnoses Encounter for screening mammogram for malignant neoplasm of breast Procedures MAMMO SCREEN BILAT W OR WO CAD Eliseo Leigh MD [address] [address] Phone: tel: fax: Referral ID Status Reason Start Date Expiration Date Visits Re quested Visits Authorized [id number] Closed 10/26/2016 11/26/2017 1 1 Encounter Details Date Type Department Care Team (Latest Contact Info) Description 10/26/2016 Ancillary Orders [facility] Pre-Registration [place] CALL TO MAKE APPOINTMENT ONLY [address] [place] [address] Eliseo Leigh MD [address] [address] Encounter for screening mammogram for malignant neoplasm of breast Social History Tobacco Use Types Packs/Day Years Used Date Smoking Tobacco: Never Smokeless Tobacco: Never Alcohol Use Standard Drinks/Week Comments No 0 (1 standard drink = 0.6 oz pur e alcohol) Comments No Sex and Gender Information Value Date Recorded Sex Assigned at Not on file Legal Sex Female 3:08 AM 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 Gender Identity Not on file Sexual Orientation Not on file Occupation Industry Job Start Date Job End Date Not on file Not on file Not on file Not on file Not on file Not on file Not on file Not on file documented as of this encounter Plan of Treatment Not on file documented as of this encounter Results * MAMMO SCREEN BILAT W OR WO CAD (11/11/2016 2:02 PM CDT) Anatomical Region Laterality Modality Breast Bilateral Mammography Narrative 11/12/2016 7:45 AM CDT Bilateral Mammogram Reason for Exam: Screening Comparison: Compared to: 10/09/2015 MAMMO DIGITAL SCREEN BILAT, 10/03/2014 MAMMO DIGITAL SCREEN BILAT, 09/13/2013 MAMMO DIGITAL SCREEN BILAT, 08/31/2012 MAMMO DIGITAL SCREEN BILAT, and 08/19/2011 MAMMO DIGITAL SCREEN BILAT Findings: Bilateral CC and MLO views were obtained. This examination was reviewed with the aid of a computer-aided detection system(CAD). Breast Composition: The breasts are heterogeneously dense, [...] Noted Time PHQ-9 Depression Total Score: 2 07/16/19 17 10:00 AM CDT documented as of this encounter Care Teams Coding Coordinator Relationship Specialty Start Date End Date Eliseo Leigh MD [address] [address] PCP - General 04/15/04 11/30/21 documented as of this encounter
--- OUTSIDE RECORDS SUMMARY | 2024-12-03 12:27 | XMS_ITS | Encounter Summary ---
Author Organization [facility] Address [address] [place] [address] Care Team Providers Care Insurance Adjuster Name Role Phone Eliseo Leigh MD Primary Care Provider [phone] Encounter Details Date Type Department Care Team (Latest Contact Info) Description 04/06/2006 Outpatient Historical [facility] [place] [address] [place] [address] Eliseo Leigh MD [address] [place] [address] Plantar Fibromatosis (Primary Dx); Unspecified Essential Hypertension; Fluid Overload; Other and Unspecified Hyperlipidemia Social History Tobacco Use Types Packs/Day Years Used Date Smoking Tobacco: Never Assessed Comments Unknown Sex and Gender Information Value Date Recorded Sex Assigned at Not on file 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
--- OUTSIDE RECORDS SUMMARY | 2024-12-03 12:27 | XMS_ITS | Encounter Summary ---
Author Organization [facility] Address [address] [place] [address] Care Team Providers Care Recruiting And Selection Consultant Name Role Phone Eliseo Leigh MD Primary Care Provider Encounter Details Date Type Department Care Team (Late st Contact Info) Description 07/14/2006 Outpatient Historical [facility] Sly Lisco [address] [place] [address] Alaina Tony MD [address] [place] [address] Rectocele (Primary Dx) Social History Tobacco Use Types Packs/Day Years Used Date Smoking Tobacco: Never Assessed Comments Unknown Sex and Gender Information Value Date Recorded Sex Assigned at Not on file 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
--- OUTSIDE RECORDS SUMMARY | 2024-12-03 12:27 | XMS_ITS | Encounter Summary ---
Author Organization [facility] Address [address] [place] [address] Care Team Providers Care Vocational Placement Specialist Name Role Phone Eliseo Leigh MD Primary Care Provider [phone] Encounter Details Date Type Department Care Team (Late st Contact Info) Description 02/16/2007 Outpatient Historical [facility] Orthopedics- 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
--- OUTSIDE RECORDS SUMMARY | 2024-12-03 12:27 | XMS_ITS | Encounter Summary ---
Author Organization [facility] Address [address] [place] [address] Care Team Providers Care Computer Consultant Name Role Phone Eliseo Leigh MD Primary Care Provider Encounter Details Date Type Department Care Team (Late st Contact Info) Description 02/16/2007 Outpatient Historical [facility] [place] [address] [place] [address] Eliseo Leigh MD [address] [place] [address] Social History Tobacco Use Types Packs/Day Years Used Date Smoking Tobacco: Never Assessed Comments No Sex and Gender Information Value Date Recorded Sex Assigned at Not on file 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
--- OUTSIDE RECORDS SUMMARY | 2024-12-03 12:27 | XMS_ITS | Encounter Summary ---
Author Organization [facility] Address [address] [place] [address] Care Team Providers Care Jig Bore Operator Name Role Phone Eliseo Leigh MD Primary Care Provider [phone] Encounter Details Date Type Department Care Team (Latest Contact Info) Description 05/06/2006 Outpatient Historical [facility] [address] [place] [address] Eliseo Leigh MD [address] [phone] Other Screening Mammogram (Primary Dx) Social History Tobacco Use Types Packs/Day Years Used Date Smoking Tobacco: Never Assessed Comments Unknown Sex and Gender Information Value Date Recorded Sex Assigned at Not on file Legal Sex Female 3:08 AM MIGRATION AGENT Gender Identity Not on file Sexual Orientation Not on file documented as of this encounter Plan of Treatment Not on file documented as of this encounter Visit Diagnoses Diagnosis Other screening mammogram- Primary documented in this encounter Care Teams Jig Bore Operator Relationship Specialty Start Date End Date Eliseo Leigh MD [address] [phone] PCP - General 04/15/04 11/30/21 documented as of this encounter
--- OUTSIDE RECORDS SUMMARY | 2024-12-03 12:27 | XMS_ITS | Encounter Summary ---
Author Organization [facility] Address [address] [place] [address] Care Team Providers Care Collection Card Clerk Name Role Phone Eliseo Leigh MD Primary Care Provider [phone] Encounter Details Date Type Department Care Team (Latest Contact Info) Description 03/27/1999 [facility] [address] [place] [address] Allan Aquino MD [address] [facility] [address] [place] [address] Pain in limb (Primary Dx) Social History Tobacco Use Types Packs/Day Years Used Date Smoking Tobacco: Never Assessed Comments Unknown Sex and Gender Information Value Date Recorded Sex Assigned at Not on file Legal Sex Female 3:08 AM DIRECTOR CENTER Gender Identity Not on file Sexual Orientation Not on file documented as of this encounter Plan of Treatment Not on file documented as of this encounter Visit Diagnoses Diagnosis Pain in limb- Primary Pain in soft tissues of limb documented in this encounter Care Teams Collection Card Clerk Relationship Specialty Start Date End Date Eliseo Leigh MD [address] [facility] [address] [place] [address] PCP - General 3/9/05 10/24/22 documented as of this encounter
--- OUTSIDE RECORDS SUMMARY | 2024-12-03 12:27 | XMS_ITS | Encounter Summary ---
Author Organization [facility] Address [address] [facility] [place] [address] Care Team Providers Care Store Receiver Name Role Phone Eliseo Leigh MD Primary Care Provider [phone] Encounter Details Date Type Department Care Team (Latest Contact Info) Description 11/10/1998 Outpatient Historical [facility] Dermatology- [facility] [place] [address] [place] [address] Mckay Evangelista MD NO ADDRESS ON FILE Actinic keratosis (Primary Dx); Dermatophytosis of nail; Other seborrheic keratosis Social History Tobacco Use Types Packs/Day Years Used Date Smoking Tobacco: Never Assessed Comments Unknown Sex and Gender Information Value Date Recorded Sex Assigned at Not on file 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
--- OUTSIDE RECORDS SUMMARY | 2024-12-03 12:27 | XMS_ITS | Encounter Summary ---
Author Organization [facility] Address [address] [place] [address] Care Team Providers Care Shingle Sawyer Name Role Phone Eliseo Leigh MD Primary Care Provider [phone] Encounter Details Date Type Department Care Team (Latest Contact Info) Description 01/18/2006 Outpatient Historical [facility] Echocardiography - [place] [address] [place] [address] [address] Taran Porter MD NO ADDRESS ON FILE Aortic Valve Disorder (Primary Dx); Undiagnosed Cardiac Murmurs Social History Tobacco Use Types Packs/Day Years Used Date Smoking Tobacco: Never Assessed Comments Unknown Sex and Gender Information Value Date Recorded Sex Assigned at Not on file Legal Sex Female 3:08 AM CLAIMS MANAGER Gender Identity Not on file Sexual Orientation Not on file documented as of this encounter Plan of Treatment Not on file documented as of this encounter Visit Diagnoses Diagnosis Aortic valve disorder- Primary Aortic valve disorders Undiagnosed cardiac murmurs documented in this encounter Care Teams Shingle Sawyer Relationship Specialty Start Date End Date Eliseo Leigh MD [address] [phone] PCP - General 04/15/04 11/30/21 documented as of this encounter
--- OUTSIDE RECORDS SUMMARY | 2024-12-03 12:27 | XMS_ITS | Encounter Summary ---
Author Organization [facility] Address [address] [place] [facility] [place] [address] Care Team Providers Care Structural Engineering Technician Name Role Phone Eliseo Leigh MD Primary Care Provider [phone] Encounter Details Date Type Department Care Team (Latest Contact Info) Description 05/06/2006 Outpatient Historical [facility] [place] [address] 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
--- OUTSIDE RECORDS SUMMARY | 2024-12-03 12:27 | XMS_ITS | Encounter Summary ---
Author Organization [facility] Address [address] [place] [address] Care Team Providers Care Primary Health Care Nurse Name Role Phone Eliseo Leigh MD Primary Care Provider Encounter Details Date Type Department Care Team (Latest Contact Info) Description 06/24/2006 Outpatient Historical [facility] [place] [place] [address] Eliseo Leigh MD [address] [place] [address] Unspecified Prolapse of Vaginal You (Primary Dx) Social History Tobacco Use Types Packs/Day Years Used Date Smoking Tobacco: Never Assessed Comments Unknown Sex and Gender Information Value Date Recorded Sex Assigned at Not on file Legal Sex Female 3:08 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
--- OUTSIDE RECORDS SUMMARY | 2024-12-03 12:27 | XMS_ITS | Encounter Summary ---
Author Organization [facility] Address [address] [place] [address] Care Team Providers Care Tire Builder Operator Name Role Phone Eliseo Leigh MD Primary Care Provider [phone] Encounter Details Date Type Department Care Team (Late st Contact Info) Description 05/01/2007 Outpatient Historical [facility] [place] [address] 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
--- OUTSIDE RECORDS SUMMARY | 2024-12-03 12:27 | XMS_ITS | Encounter Summary ---
Author Organization [facility] Address [address] [place] [address] Care Team Providers Care Spa Manager Name Role Phone Eliseo Leigh MD Primary Care Provider [phone] Encounter Details Date Type Department Care Team (Late st Contact Info) Description 02/23/2007 Outpatient Historical [facility] Orthopedics- [address] [place] [address] Tony Pollard MD NO ADDRESS ON FILE Social History Tobacco Use Types Packs/Day Years Used Date Smoking Tobacco: Never Assessed Comments No Sex and Gender Information Value Date Recorded Sex Assigned at Not on file Legal Sex Female 3:08 AM WOOL HAT FLANGER Gender Identity Not on file Sexual Orientation Not on file documented as of this encounter Plan of Treatment Not on file documented as of this encounter Visit Diagnoses Not on filedocumented in this encounter Care Teams Spa Manager Relationship Specialty Start Date End Date Eliseo Leigh MD [address] [phone] PCP - General 04/15/04 11/30/21 documented as of this encounter
--- OUTSIDE RECORDS SUMMARY | 2024-12-03 12:27 | XMS_ITS | Encounter Summary ---
Author Organization [facility] Address [address] [place] [address] Care Team Providers Care Gear Coding Machine Operator Name Role Phone Eliseo Leigh MD Primary Care Provider [phone] Reason for Referral * Radiology Services (Routine) - Closed Specialty Diagnoses / Procedures Referred By Contac t Referred To Contact Radiology Diagnoses Breast cancer screening by mammogram Procedures MAMMO SCRN BILAT 3D OLEG W OR WO CAD CHG SCREENING MAMMOGRAPHY BI 2-VIEW BREAST INC CAD CHG SCREENING DIGITAL BREAST TOMOSYNTHESIS BI Eliseo Leigh MD [address] [facility] [address] [place] [address] Phone: tel: fax: [facility] [address] [facility] [address] [place] [address] Phone: tel: fax: Referral ID Status Reason Start Date Expiration Date Visits Re quested Visits Authorized [id number] Closed 03/18/2020 04/18/2021 1 1 [employer]INER [employer] Encounter Details Date Type Department Care Team (Latest Contact Info) Description 03/18/2020 Ancillary Orders [facility] Pre-Registration Shruthi CALL TO MAKE APPOINTMENT ONLY [address] [place] [address] Eliseo Leigh MD [address] [address] Breast cancer screening by mammogram Social History Tobacco Use Types Packs/Day Years Used Date Smoking Tobacco: Never Smokeless Tobacco: Never Alcohol Use Standard Drinks/Week Comments No 0 (1 standard drink = 0.6 oz pur e alcohol) Comments No Sex and Gender Information Value Date Recorded Sex Assigned at Not on file 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 No / Unsure 02/26/2020 1:36 PM MAINTAINER [employer] documented as of this encounter Plan of Treatment Not on file documented as of this encounter Results * MAMMO SCRN BILAT 3D OLEG W OR WO CAD (06/10/2020 1:43 PM CDT) Anatomical Region Laterality Modality Breast Bilateral Mammography Narrative 06/11/2020 1:32 PM CDT Bilateral Digital Mammogram with CAD and 3D Tomography Reason for Exam: Screening Comparison: Compared to: 02/15/2019 MAMMO SCRN BILAT 3D OLEG W OR WO CAD, 02/02/2018 MAMMO SCRN BILAT 3D OLEG W OR WO CAD, 11/11/2016 MAMMO SCREEN BILAT W OR WO CAD, and 10/09/2015 MAMMO DIGITAL SCREEN BILAT Technique: 3D MLO [...] documented in this encounter Visit Diagnoses Diagnosis Breast cancer screening by mammogram Breast cancer screening by mammogram documented in this encounter Care Teams Gear Coding Machine Operator Relationship Specialty Start Date End Date Eliseo Leigh MD [address] [address] PCP - General 04/15/04 11/30/21 documented as of this encounter
--- OUTSIDE RECORDS SUMMARY | 2024-12-03 12:27 | XMS_ITS | Encounter Summary ---
Author Organization [facility] Address [address] [facility] [place] [address] Care Team Providers Care Special Weapons Unit Officer Name Role Phone Eliseo Leigh MD Primary Care Provider [phone] Encounter Details Date Type Department Care Team (Latest Contact Info) Description 06/24/1998 Outpatient Historical [facility] Tony Pollard MD NO ADDRESS ON FILE Unspecified closed fracture of ankle (Primary Dx) Social History Tobacco Use Types Packs/Day Years Used Date Smoking Tobacco: Never Assessed Comments Unknown Sex and Gender Information Value Date Recorded Sex Assigned at Not on file Legal Sex Female 3:08 AM [place] Gender Identity Not on file Sexual Orientation Not on file documented as of this encounter Plan of Treatment Not on file documented as of this encounter Visit Diagnoses Diagnosis Unspecified closed fracture of ankle- Primary documented in this encounter Care Teams Special Weapons Unit Officer Relationship Specialty Start Date End Date Eliseo Leigh MD [address] [address] [place] [phone] PCP - General 04/15/04 11/30/21 documented as of this encounter
--- OUTSIDE RECORDS SUMMARY | 2024-12-03 12:27 | XMS_ITS | Encounter Summary ---
Author Organization [facility] Address [address] [place] [address] Care Team Providers Care Returned Materials Inspector Name Role Phone Eliseo Leigh MD Primary Care Provider [phone] Encounter Details Date Type Department Care Team (Latest Contact Info) Description 07/28/2006 Outpatient Historical [facility] [address] [place] [address] Eliseo Leigh MD [address] [place] [address] Osteoarth NOS-L/Leg (Primary Dx); Pain in Joint, Lower Leg Social History Tobacco Use Types Packs/Day Years Used Date Smoking Tobacco: Never Assessed Comments Unknown Sex and Gender Information Value Date Recorded Sex Assigned at Not on file 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
--- OUTSIDE RECORDS SUMMARY | 2024-12-03 12:27 | XMS_ITS | Encounter Summary ---
Author Organization [facility] Address [address] [place] [address] Care Team Providers Care Brick Offbearer Name Role Phone Eliseo Leigh MD Primary Care Provider [phone] Encounter Details Date Type Department Care Team (Late st Contact Info) Description 03/02/2007 Outpatient Historical [facility] Orthopedics- 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
--- OUTSIDE RECORDS SUMMARY | 2024-12-03 12:28 | XMS_ITS | Encounter Summary ---
Author Organization [facility] Address [address] [place] [address] Care Team Providers Care Vascular Ultrasound Technician Name Role Phone Eliseo Leigh MD Primary Care Provider Encounter Details Date Type Department Care Team (Latest Contact Info) Description 09/08/2006 Outpatient Historical [facility] [address] [place] [address] [place] [address] Alaina Tony MD [address] [address] Pre-Operative Cardiovascular Examination (Primary Dx) Social History Tobacco Use Types Packs/Day Years Used Date Smoking Tobacco: Never Assessed Comments Unknown Sex and Gender Information Value Date Recorded Sex Assigned at Not on file 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 Gender Identity Not on file Sexual Orientation Not on file documented as of this encounter Plan of Treatment Not on file documented as of this encounter Procedures Procedure Name Priority Date/Time Associated Diagnosis Comments CBC WITH DIFFERENTIAL Routine 09/08/2006 1:20 PM CDT documented in this encounter Results * (ABNORMAL) CBC WITH DIFFERENTIAL (09/08/2006 1:20 PM CDT) WBC 5.5 4.8 - 10.8 K/ul INTERFACE SYSTEM RBC 4.51 4.20 - 5.40 Mil/ul INTERFACE SYSTEM HEMOGLOBIN 13.3 12.0 - 16.0 g/dL INTERFACE SYSTEM HEMATOCRIT 40.2 36.0 - 46.0 % INTERFACE SYSTEM MCV 89.1 84.0 - 103.0 Fl INTERFACE SYSTEM MCH 29.5 27.0 - 34.0 pg INTERFACE SYSTEM MCHC 33.1 30.0 - 35.0 g/dL INTERFACE SYSTEM RDW 13.9 11.0 - 14.5 % INTERFACE SYSTEM PLATELETS 233 140 - 440 K/ul INTERFACE SYSTEM MPV 10.5 8.9 - 12.8 Fl INTERFACE SYSTEM NEUTROPHILS 38.3(L) 42.2 - 75.2 % INTERFACE SYSTEM LYMPHOCYTES 47.4(H) 24.0 - 44.0 % INTERFACE SYSTEM MONOCYTES 9.3 2.0 - 10.0 % INTERFACE SYSTEM EOSINOPHILS 4.6 0.0 - 7.0 % INTERFACE SYSTEM BASOPHILS 0.4 0.0 - 1.0 % INTERFACE SYSTEM NEUTROPHIL ABSOLUTE 2.1 2.0 - 8.0 K/ul INTERFACE SYSTEM LYMPHOCYTE ABSOLUTE 2.6 1.2 - 4.0 K/ul INTERFACE SYSTEM MONOCYTE ABSOLUTE 0.5 0.1 - 0.6 K/ul INTERFACE SYSTEM EOSINOPHIL ABSOLUTE 0.3 0.0 - 0.7 K/ul INTERFACE SYSTEM BASOPHILS ABSOLUTE 0.0 0.0 - 0.2 K/ul INTERFACE SYSTEM 09/08/2006 1:20 PM CDT us Alaina Tony MD HEMATOLOGY ORDERABLES Edited INTERFACE SYSTEM Refer to clinic/hospital department documented in this encounter Visit Diagnoses Diagnosis Pre-operative cardiovascular examination- Primary documented in this encounter Care Teams Vascular Ultrasound Technician Relationship Specialty Start Date End Date Eliseo Leigh MD [address] [address] PCP - General 04/15/04 11/30/21 documented as of this encounter
--- OUTSIDE RECORDS SUMMARY | 2024-12-03 12:28 | XMS_ITS | Encounter Summary ---
Author Organization [facility] Address [address] [place] [address] Care Team Providers Care Marketing Secretary Name Role Phone Eliseo Leigh MD Primary Care Provider [phone] Encounter Details Date Type Department Care Team (Late st Contact Info) Description 11/03/2006 Outpatient Historical [facility] OBGYN-[place] S[place] [address] [place] [address] Alaina Tony MD [address] [place] [address] Follow-Up Examination, Following Unspecified Surgery (Primary Dx); Decreased Libido Social History Tobacco Use Types Packs/Day Years Used Date Smoking Tobacco: Never Assessed Comments Unknown Sex and Gender Information Value Date Recorded Sex Assigned at Not on file 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
--- OUTSIDE RECORDS SUMMARY | 2024-12-03 12:28 | XMS_ITS | Encounter Summary ---
Author Organization [facility] Address [address] [place] [address] Care Team Providers Care Stroke Belt Sander Operator Name Role Phone Eliseo Leigh MD Primary Care Provider [phone] Encounter Details Date Type Department Care Team (Latest Contact Info) Description 08/03/2006 Outpatient Historical [facility] Cardiology Ancillary Services-[place] [address] [place] [address] Yovani Varela MD NO ADDRESS ON FILE Shortness of Breath (Primary Dx); Unspecified Chest Pain Social History Tobacco Use Types Packs/Day Years Used Date Smoking Tobacco: Never Assessed Comments Unknown Sex and Gender Information Value Date Recorded Sex Assigned at Not on file 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
--- OUTSIDE RECORDS SUMMARY | 2024-12-03 12:28 | XMS_ITS | Encounter Summary ---
Author Organization [facility] Address [address] [place] [address] Care Team Providers Care Jockey Valet Name Role Phone Eliseo Leigh MD Primary Care Provider [phone] Encounter Details Date Type Department Care Team (Late st Contact Info) Description 02/02/2007 Outpatient Historical [facility] Orthopedics- 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
--- OUTSIDE RECORDS SUMMARY | 2024-12-03 12:28 | XMS_ITS | Encounter Summary ---
Author Organization [facility] Address [address] [place] [address] Care Team Providers Care Giving Officer Name Role Phone Eliseo Leigh MD Primary Care Provider [phone] Encounter Details Date Type Department Care Team (Late st Contact Info) Description 02/09/2007 Outpatient Historical [facility] Orthopedics- 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
--- OUTSIDE RECORDS SUMMARY | 2024-12-03 12:28 | XMS_ITS | Encounter Summary ---
Author Organization [facility] Address [address] [place] [address] Care Team Providers Care Poultry Eviscerator Name Role Phone Eliseo Leigh MD Primary Care Provider Encounter Details Date Type Department Care Team (Latest Contact Info) Description 09/08/2006 Outpatient Historical [facility] OBGYN-[place] Sly [place] [address] [place] [address] Alaina Tony MD [address] [place] [address] Uterovaginal Prolapse, Unspecified (Primary Dx) Social History Tobacco Use Types Packs/Day Years Used Date Smoking Tobacco: Never Assessed Comments Unknown Sex and Gender Information Value Date Recorded Sex Assigned at Not on file 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
--- OUTSIDE RECORDS SUMMARY | 2024-12-03 12:28 | XMS_ITS | Encounter Summary ---
Author Organization [facility] Address [address] [place] [address] Care Team Providers Care Tap Builder Name Role Phone Eliseo Leigh MD Primary Care Provider [phone] Reason for Visit * Reason Comments Med Refill Encounter Details Date Type Department Care Team (Late st Contact Info) Description 11/26/2024 Refill [facility] Med-[place] [address] [place] [address] Eliseo Leigh MD [address] [place] [address] Social History Tobacco Use Types Packs/Day Years [...] on file Legal Sex Female 6:28 AM BUSINESS DEVELOPMENT SPECIALIST Gender Identity Not on file Sexual Orientation Not on file documented as of this encounter Plan of Treatment Upcoming Encounters Date Type Department Care Team (Late st Contact Info) Description 12/26/2024 1:50 PM BUSINESS DEVELOPMENT SPECIALIST Appointment [facility] [address] [place] [address] Eliseo Leigh MD [address] [place] [address] 01/11/2025 11:20 AM BUSINESS DEVELOPMENT SPECIALIST Office Visit [facility] [address] [place] [address] Jose Bob CRNP [address] [place] [address] 06/27/2025 1:30 PM CDT Office Visit [facility] [address] [place] [address] Jarocho Good MD [address] [place] [address] documented as of this encounter Visit Diagnoses Not on filedocumented in this encounter Care Teams Tap Builder Relationship Specialty Start Date End Date Eliseo Leigh MD [address] [place] [address] PCP - General Family Practice 01/30/24 documented as of this encounter
--- OUTSIDE RECORDS SUMMARY | 2024-12-03 12:28 | XMS_ITS | Encounter Summary ---
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) Social History Tobacco Use Types Packs/Day Years Used Date Smoking Tobacco: Never Assessed Comments Unknown Sex and Gender Information Value Date Recorded Sex Assigned at Not on file 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 Gender Identity Not on file Sexual Orientation Not on file documented as of this encounter Plan of Treatment Not on file documented as of this encounter Procedures Procedure Name Priority Date/Time Associated Diagnosis Comments CBC WITHOUT DIFFERENTIAL Routine 09/14/2006 6:12 AM CDT documented in this encounter Results * (ABNORMAL) CBC WITHOUT DIFFERENTIAL (09/14/2006 6:12 AM CDT) WBC 10.0 4.8 - 10.8 K/ul INTERFACE SYSTEM RBC 3.89(L) 4.20 - 5.40 Mil/ul INTERFACE SYSTEM HEMOGLOBIN 11.3(L) 12.0 - 16.0 g/dL INTERFACE SYSTEM HEMATOCRIT 35.2(L) 36.0 - 46.0 % INTERFACE SYSTEM MCV 90.5 84.0 - 103.0 Fl INTERFACE SYSTEM MCH 29.0 27.0 - 34.0 pg INTERFACE SYSTEM MCHC 32.1 30.0 - 35.0 g/dL INTERFACE SYSTEM RDW 13.9 11.0 - 14.5 % INTERFACE SYSTEM PLATELETS 222 140 - 440 K/ul INTERFACE SYSTEM MPV 10.9 8.9 - 12.8 Fl INTERFACE SYSTEM NEUTROPHILS 67.8 42.2 - 75.2 % INTERFACE SYSTEM LYMPHOCYTES 24.1 24.0 - 44.0 % INTERFACE SYSTEM MONOCYTES 7.9 2.0 - 10.0 % INTERFACE SYSTEM EOSINOPHILS 0.1 0.0 - 7.0 % INTERFACE SYSTEM BASOPHILS 0.1 0.0 - 1.0 % INTERFACE SYSTEM NEUTROPHIL ABSOLUTE 6.8 2.0 - 8.0 K/ul INTERFACE SYSTEM LYMPHOCYTE ABSOLUTE 2.4 1.2 - 4.0 K/ul INTERFACE SYSTEM MONOCYTE ABSOLUTE 0.8(H) 0.1 - 0.6 K/ul INTERFACE SYSTEM EOSINOPHIL ABSOLUTE 0.0 0.0 - 0.7 K/ul INTERFACE SYSTEM BASOPHILS ABSOLUTE 0.0 0.0 - 0.2 K/ul INTERFACE SYSTEM 09/14/2006 6:12 AM CDT us Alaina Tony MD HEMATOLOGY ORDERABLES Edited INTERFACE SYSTEM Refer to clinic/hospital department documented in this encounter Visit Diagnoses Diagnosis Prolapse of vaginal vault after hysterectomy- Primary documented in this encounter Care Teams Moving Picture Operator Relationship Specialty Start Date End Date Eliseo Leigh MD [address] [address] PCP - General 04/15/04 11/30/21 documented as of this encounter
--- OUTSIDE RECORDS SUMMARY | 2024-12-03 12:28 | XMS_ITS | Encounter Summary ---
Author Organization [facility] Address [address] [place] [address] Care Team Providers Care Wireless Cellular Technician Name Role Phone Eliseo Leigh MD Primary Care Provider [phone] Encounter Details Date Type Department Care Team (Latest Contact Info) Description 07/28/2006 Outpatient Historical [facility] [place] [place] [address] Eliseo Leigh MD [address] [place] [address] Routine Medical Exam (Primary Dx); Unspecified Chest Pain; Shortness of Breath Social History Tobacco Use Types Packs/Day Years Used Date Smoking Tobacco: Never Assessed Comments Unknown Sex and Gender Information Value Date Recorded Sex Assigned at Not on file 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
[2024-12-03 12:43] LABS: Alanine Aminotransferase 15 U/L (0-33); Albumin Level 3.7 g/dL (3.5-5.2); Alkaline Phosphatase 93 U/L (35-105); Anion Gap 17.1 (5-19); Aspartate Amino Transferase 18 U/L (0-32); Blood Urea Nitrogen 23 mg/dL (8-23); Calcium 8.5 mg/dL (8.5-10.5); Carbon Dioxide 24 mmol/L (22-29); Chloride 95 mmol/L (98-107); Creatinine Clr Calc Pharmacy 30.9300; Globulin 2.4 g/dL (1.3-4.6); Glucose 115 mg/dL (65-115); Osmolality Calculated 279 mOsm/kg (285-295); Potassium 4.1 mmol/L (3.5-5.1); Sodium 132 mmol/L (136-145); Total Protein 6.1 g/dL (6.6-8.7)
[2024-12-03 12:55] VITALS: BP 176/94
[2024-12-03 13:30] VITALS: BP 164/103; PULSE 98; RESP 18; O2SAT 95
[2024-12-03] MEDS: iohexol 350 mg/mL 500 mL Btl (per mL) IV (13:41)
--- NOTE | 2024-12-03 14:21 | PC.PHAR ---
Pt states she is going to go back on her Losartan but does not know what strength she takes or last time she had it filled. [facility] went all the way back to 2022 and can't find an order for Losartan. Unable to locate an rx for it.
[2024-12-03 14:22] VITALS: BP 164/88; PULSE 72; O2SAT 99
== END 2024-12-03 14:23 | disposition home or self-care (01) ==
PROVIDERS: Emergency Provider Emergency Medicine; PCP Family Medicine
DX: M54.89 Other dorsalgia (principal); I10 Essential (primary) hypertension; Z95.0 Presence of cardiac pacemaker; Z86.73 Personal history of transient ischemic attack (TIA), and cerebral infarction without residual deficits
CPT/HCPCS: 36415; 74177; 80053; 85025; 96374; 96375; 99285; J0360; J1100; J2270; J2405

== ENCOUNTER 2024-12-08 10:56 | Emergency (ER) | payer MEDICARE, SELFPAY ==
--- OUTSIDE RECORDS SUMMARY | 2024-12-08 11:03 | XMS_ITS | Encounter Summary ---
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 Date Signed: 06/05/07 JAW Mazin Newton [...] agents documented in this encounter Care Teams Public Health Specialist Relationship Specialty Start Date End Date Eliseo Leigh MD [address] [address] PCP - General 04/15/04 11/30/21 documented as of this encounter
--- OUTSIDE RECORDS SUMMARY | 2024-12-08 11:03 | XMS_ITS | Encounter Summary ---
Author Organization [facility] Address [address] [place] [address] Care Team Providers Care Gas Or Petroleum Operator Name Role Phone Eliseo Leigh MD Primary Care Provider [phone] Encounter Details Date Type Department Care Team (Late st Contact Info) Description 08/06/2005 Outpatient Historical [facility] Ophthalmology 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
--- OUTSIDE RECORDS SUMMARY | 2024-12-08 11:03 | XMS_ITS | Encounter Summary ---
Author Organization [facility] Address [address] [place] [address] Care Team Providers Care Chief Of Staff Doctor Name Role Phone Eliseo Leigh MD Primary Care Provider [phone] Reason for Referral * Radiology Services (Routine) - Closed Specialty Diagnoses / Procedures Referred By Contac t Referred To Contact Cardiology Diagnoses Pacemaker battery depletion Procedures CL BATTERY CHANGE Juan Win MD [facility] Cardiac Public Health Advisor [address] [place] [address] Phone: tel: fax: Referral ID Status Reason Start Date Expiration Date Visits Re quested Visits Authorized [id number] Closed 07/10/2018 08/10/2019 1 1 Encounter Details Date Type Department Care Team (Late st Contact Info) Description 07/10/2018 Ancillary Orders [facility] Cardiology- [place] [address] [place] [address] Juan Win MD NO ADDRESS ON FILE Pacemaker battery depletion Social History Tobacco Use Types Packs/Day Years Used Date Smoking Tobacco: Never Smokeless Tobacco: Never Alcohol Use Standard Drinks/Week Comments No 0 (1 standard drink = 0.6 oz pur e alcohol) Comments No Sex and Gender Information Value Date Recorded Sex Assigned at Not on file Legal Sex Female 3:08 AM SURGICAL FIRST ASSISTANT Gender Identity Not on file Sexual Orientation [...] CL BATTERY CHANGE (07/17/2018 2:10 PM CDT) [facility] - 07/18/2018 4:47 PM [...] was a Medtronic Sensia SEDR01, serial number [id number]. 2. Right atrial lead reused is a Medtronic 5076, serial number [id number]. 3. Right ventricular lead reused is a Medtronic 5076, serial number [id number]. 4. New pulse generator is a Medtronic Teresa W1DR01, serial number [id number]. PROCEDURE: After informed consent obtained, the patient [...] explanted was a Medtronic Sensia SEDR01, serial [id number]. 2. Right atrial lead reused is a Medtronic 5076, serial [id number]. 3. Right ventricular lead reused is a Medtronic 5076, serial [id number]. 4. New pulse generator is a Medtronic [place] W1DR01, serial [id number]. PROCEDURE: After informed consent obtained, the patient [...] and 3000 ohms. SDW/ama - transcribed in [facility] - [facility] Juan Win MD FLUOROSCOPY ORDERABLES Abby mittal Result [facility] documented in this encounter Visit Diagnoses Diagnosis Pacemaker battery depletion Fitting and adjustment of cardiac pacemaker Pacemaker - Medtronic- Primary Cardiac pacemaker in situ Pacemaker battery depletion Fitting and adjustment of cardiac pacemaker documented in this encounter Care Teams Chief Of Staff Doctor Relationship Specialty Start Date End Date Eliseo Leigh MD [address] [phone] PCP - General 04/15/04 11/30/21 documented as of this encounter
--- OUTSIDE RECORDS SUMMARY | 2024-12-08 11:03 | XMS_ITS | Encounter Summary ---
Author Organization [facility] Address [address] [place] [address] Care Team Providers Care Copy Machine Operator Name Role Phone Eliseo Leigh MD Primary Care Provider [phone] Reason for Referral * Outpatient Services (Routine) - Closed Specialty Diagnoses / Procedures Referred By Contmegha t Referred To Contact Diagnoses Other screening mammogram Procedures MAMMO DIGITAL SCREEN BILAT Eliseo Leigh MD [address] [address] Phone: tel: fax: [facility] Pre-Registration [place] CALL TO MAKE APPOINTMENT ONLY [address] [place] [address] Phone: tel: fax: Referral ID Status Reason Start Date Expiration Date Visits Re quested Visits Authorized [id number] Closed 07/28/2012 08/28/2013 1 1 Encounter Details Date Type Department Care Team (Latest Contact Info) Description 07/28/2012 Ancillary Orders [facility] Pre-Registration [place] CALL TO MAKE APPOINTMENT ONLY [address] [place] [address] Eliseo Leigh MD [address] [place] [address] Other screening mammogram (Primary Dx) Social History Tobacco Use Types Packs/Day Years Used Date Smoking Tobacco: Never Smokeless Tobacco: Never Alcohol Use Standard Drinks/Week Comments No 0 (1 standard drink = 0.6 oz pur e alcohol) Comments No Sex and Gender Information Value Date Recorded Sex Assigned at Not on file 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 Procedure Note Nils lKine MD - 09/01/2012 Bilateral Mammogram Reason for [...] mammogram documented in this encounter Care Teams Copy Machine Operator Relationship Specialty Start Date End Date Eliseo Leigh MD [address] [place] [address] PCP - General 04/15/04 11/30/21 documented as of this encounter
--- OUTSIDE RECORDS SUMMARY | 2024-12-08 11:03 | XMS_ITS | Encounter Summary ---
Author Organization [facility] Address [address] [place] [address] Care Team Providers Care Boiling Tub Operator Name Role Phone Eliseo Leigh MD Primary Care Provider [phone] Reason for Referral * Outpatient Services (Routine) - Closed Specialty Diagnoses / Procedures Referred By Michael mendes Referred To Contact Diagnoses Visit for screening mammogram Procedures MAMMO DIGITAL SCREEN BILAT Eliseo Leigh MD [address] [address] Phone: tel: fax: Referral ID Status Reason Start Date Expiration Date Visits Re quested Visits Authorized [id number] Closed 09/19/2015 10/19/2016 1 1 Encounter Details Date Type Department Care Team (Latest Contact Info) Description 09/19/2015 Ancillary Orders [facility] Pre-Registration [place] CALL TO MAKE APPOINTMENT ONLY [address] [place] [address] Eliseo Leigh MD [address] [address] Visit for screening mammogram (Primary Dx) Social History Tobacco Use Types Packs/Day Years Used Date Smoking Tobacco: Never Smokeless Tobacco: Never Alcohol Use Standard Drinks/Week Comments No 0 (1 standard drink = 0.6 oz pur e alcohol) Comments No Sex and Gender Information Value Date Recorded Sex Assigned at Not on file 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
--- OUTSIDE RECORDS SUMMARY | 2024-12-08 11:03 | XMS_ITS | Encounter Summary ---
Author Organization [facility] Address [address] [place] [address] Care Team Providers Care Mail Censor Name Role Phone Eliseo Leigh MD Primary Care Provider [phone] Encounter Details Date Type Department Care Team (Late st Contact Info) Description 03/31/2005 Outpatient Historical [facility] Services [address] [place] [address] Elyssa Cooper, RN NO ADDRESS ON FILE Social History Tobacco Use Types Packs/Day Years Used Date Smoking Tobacco: Never Assessed Comments Unknown Sex and Gender Information Value Date Recorded Sex Assigned at Not on file 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
--- OUTSIDE RECORDS SUMMARY | 2024-12-08 11:03 | XMS_ITS | Encounter Summary ---
Author Organization [facility] Address [address] [place] [address] Care Team Providers Care Cook Pie Name Role Phone Eliseo Leigh MD Primary Care Provider [phone] Encounter Details Date Type Department Care Team (Latest Contact Info) Description 01/11/2006 Outpatient Historical [facility] [place] [place] [address] Eliseo Leigh MD [address] [place] [address] Other Malaise and Fatigue (Primary Dx); Unspecified Hypothyroidism; Undiagnosed Cardiac Murmurs; Unspecified Chest Pain; Vaccine for influenza Social History Tobacco Use Types Packs/Day Years Used Date Smoking Tobacco: Never Assessed Comments Unknown Sex and Gender Information Value Date Recorded Sex Assigned at Not on file 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
--- OUTSIDE RECORDS SUMMARY | 2024-12-08 11:03 | XMS_ITS | Encounter Summary ---
Author Organization [facility] Address [address] [place] [address] Care Team Providers Care Windlace Machine Operator Name Role Phone Eliseo Leigh MD Primary Care Provider [phone] Encounter Details Date Type Department Care Team (Latest Contact Info) Description 07/25/2007 Outpatient [facility] [address] [address] Mazin Newton MD NO ADDRESS ON FILE Spinal Stenosis of Lumbar Region; Congenital Spondylolisthesis; Unspecified Arthropathy, Site Unspecified; Unspecified Essential Hypertension Social History Tobacco Use Types Packs/Day Years Used Date Smoking Tobacco: Never Assessed Comments No Sex and Gender Information Value Date Recorded Sex Assigned at Not on file 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
--- OUTSIDE RECORDS SUMMARY | 2024-12-08 11:03 | XMS_ITS | Encounter Summary ---
Author Organization [facility] Address [address] [place] [address] Care Team Providers Care Solvent Recoverer Name Role Phone Eliseo Leigh MD Primary Care Provider [phone] Reason for Referral * Outpatient Services (Routine) - Closed Specialty Diagnoses / Procedures Referred By Contmegha t Referred To Contact Diagnoses Other screening mammogram Procedures MAMMO DIGITAL SCREEN BILAT Eliseo Leigh MD [address] [address] Phone: tel: fax: [facility] Pre-Registration [place] CALL TO MAKE APPOINTMENT ONLY [address] [place] [address] Phone: tel: fax: Referral ID Status Reason Start Date Expiration Date Visits Re quested Visits Authorized [id number] Closed 07/02/2011 07/01/2012 1 1 Encounter Details Date Type Department Care Team (Latest Contact Info) Description 07/02/2011 Ancillary Orders [facility] Pre-Registration [place] CALL TO MAKE APPOINTMENT ONLY [address] [place] [address] Eliseo Leigh MD [address] [place] [address] Other screening mammogram Social History Tobacco Use Types Packs/Day Years Used Date Smoking Tobacco: Never Smokeless Tobacco: Never Alcohol Use Standard Drinks/Week Comments No 0 (1 standard drink = 0.6 oz pur e alcohol) Comments No Sex and Gender Information Value Date Recorded Sex Assigned at Not on file 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
--- OUTSIDE RECORDS SUMMARY | 2024-12-08 11:03 | XMS_ITS | Encounter Summary ---
Author Organization [facility] Address [address] [place] [address] Care Team Providers Care Scanning Tech Name Role Phone Eliseo Leigh MD Primary Care Provider Encounter Details Date Type Department Care Team (Latest Contact Info) Description 12/02/2004 Outpatient Historical [facility] [place] [place] [address] Eliseo Leigh MD [address] [place] [address] Vaccine for influenza (Primary Dx) Social History Tobacco Use Types Packs/Day Years Used Date Smoking Tobacco: Never Assessed Comments Unknown Sex and Gender Information Value Date Recorded Sex Assigned at Not on file 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
--- OUTSIDE RECORDS SUMMARY | 2024-12-08 11:03 | XMS_ITS | Encounter Summary ---
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
--- OUTSIDE RECORDS SUMMARY | 2024-12-08 11:03 | XMS_ITS | Encounter Summary ---
Author Organization [facility] Address [address] [place] [address] Care Team Providers Care Learning Disabilities Teacher Name Role Phone Eliseo Leigh MD Primary Care Provider [phone] Encounter Details Date Type Department Care Team (Latest Contact Info) Description 05/06/2005 Outpatient Historical [facility] Eduardo [facility]ann[facility] [place] [address] 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
--- OUTSIDE RECORDS SUMMARY | 2024-12-08 11:03 | XMS_ITS | Encounter Summary ---
Author Organization [facility] Address [address] [place] [address] Care Team Providers Care Community Service Director Name Role Phone Eliseo Leigh MD Primary Care Provider [phone] Encounter Details Date Type Department Care Team (Latest Contact Info) Description 11/27/2003 Outpatient Historical [facility] Cardiology Anc[facility] [address] [place] [address] Taran Porter MD NO ADDRESS ON FILE Mitral valve disorder (Primary Dx) Social History Tobacco Use Types Packs/Day Years Used Date Smoking Tobacco: Never Assessed Comments Unknown Sex and Gender Information Value Date Recorded Sex Assigned at Not on file 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
--- OUTSIDE RECORDS SUMMARY | 2024-12-08 11:03 | XMS_ITS | Encounter Summary ---
Author Organization [facility] Address [address] [place] [address] Care Team Providers Care Vacuum Metalizer Operator Name Role Phone Eliseo Leigh MD Primary Care Provider [phone] Encounter Details Date Type Department Care Team (Latest Contact Info) Description 06/27/2007 Outpatient Historical [facility] [address] [facility] [address] [place] [address] Lyndon Magaña, PA [address] [place] [address] Pain in Joint, Pelvic Region and Thigh; Congenital Spondylolisthesis; Unspecified Disorder of Thyroid; Unspecified Essential Hypertension; Headache; Personal History of Allergy to Analgesic Agent Social History Tobacco Use Types Packs/Day Years Used Date Smoking Tobacco: Never Assessed Comments No Sex and Gender Information Value Date Recorded Sex Assigned at Not on file Legal Sex Female 3:08 AM CLINICAL APPLICATIONS MANAGER Gender Identity Not on file Sexual [...] agent documented in this encounter Care Teams Vacuum Metalizer Operator Relationship Specialty Start Date End Date Eliseo Leigh MD [address] [address] PCP - General 04/15/04 11/30/21 documented as of this encounter
--- OUTSIDE RECORDS SUMMARY | 2024-12-08 11:03 | XMS_ITS | Encounter Summary ---
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
--- OUTSIDE RECORDS SUMMARY | 2024-12-08 11:03 | XMS_ITS | Encounter Summary ---
Author Organization [facility] Address [address] [facility] [place] [address] Care Team Providers Care Director Biologics Name Role Phone Eliseo Leigh MD Primary Care Provider [phone] Encounter Details Date Type Department Care Team (Latest Contact Info) Description 05/06/[address] Outpatient [address] [facility] [place] [address] 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
--- OUTSIDE RECORDS SUMMARY | 2024-12-08 11:03 | XMS_ITS | Encounter Summary ---
Author Organization [facility] Address [address] [place] [address] Care Team Providers Care Shuttle Threader Name Role Phone Eliseo Leigh MD Primary Care Provider [phone] Encounter Details Date Type Department Care Team (Latest Contact Info) Description 10/25/2005 Outpatient Historical [facility] Ophthalmology [address] [facility] [address] [place] [address] Adam Jimenez MD [address] [place] [address] Blepharochalasis (Primary Dx) Social History Tobacco Use Types Packs/Day Years Used Date Smoking Tobacco: Never Assessed Comments Unknown Sex and Gender Information Value Date Recorded Sex Assigned at Not on file 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
--- OUTSIDE RECORDS SUMMARY | 2024-12-08 11:03 | XMS_ITS | Encounter Summary ---
Author Organization [facility] Address [address] [place] [facility] [place] [address] Care Team Providers Care School Laboratory Technician Name Role Phone Eliseo Leigh MD Primary Care Provider [phone] Encounter Details Date Type Department Care Team (Late st Contact Info) Description 06/30/2007 Outpatient Historical [facility] DEFAULT DEPARTMENT GómezLyndon Melara PA [address] [place] [address] Social History Tobacco Use Types Packs/Day Years Used Date Smoking Tobacco: Never Assessed Comments No Sex and Gender Information Value Date Recorded Sex Assigned at Not on file 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
--- OUTSIDE RECORDS SUMMARY | 2024-12-08 11:03 | XMS_ITS | Encounter Summary ---
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
--- OUTSIDE RECORDS SUMMARY | 2024-12-08 11:03 | XMS_ITS | Encounter Summary ---
Author Organization [facility] Address [address] [place] [address] Care Team Providers Care Master Welder Name Role Phone Eliseo Leigh MD Primary Care Provider [phone] Encounter Details Date Type Department Care Team (Latest Contact Info) Description 08/06/2005 Outpatient Historical [facility] 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
--- OUTSIDE RECORDS SUMMARY | 2024-12-08 11:03 | XMS_ITS | Encounter Summary ---
Author Organization [facility] Address [address] [place] [address] Care Team Providers Care Board Writer Name Role Phone Eliseo Leigh MD Primary Care Provider [phone] Encounter Details Date Type Department Care Team (Latest Contact Info) Description 10/15/2005 Outpatient [facility] [address] [place] [address] [facility] [address] [place] [address] Adam Jimenez MD [address] [facility] [address] [place] [address] Dermatochalasis (Primary Dx) Social History Tobacco Use Types Packs/Day Years Used Date Smoking Tobacco: Never Assessed Comments Unknown Sex and Gender Information Value Date Recorded Sex Assigned at Not on file Legal Sex Female 3:08 AM OSTEOPATHIC RESIDENT Gender Identity Not on file Sexual Orientation Not on file documented as of this encounter Plan of Treatment Not on file documented as of this encounter Visit Diagnoses Diagnosis Dermatochalasis- Primary documented in this encounter Care Teams Board Writer Relationship Specialty Start Date End Date Eliseo Leigh MD [address] [facility] [address] [place] [address] PCP - General 04/15/04 11/30/21 documented as of this encounter
--- OUTSIDE RECORDS SUMMARY | 2024-12-08 11:03 | XMS_ITS | Encounter Summary ---
Author Organization [facility] Address [address] [place] [address] Care Team Providers Care Crane Chaser Name Role Phone Eliseo Leigh MD Primary Care Provider [phone] Encounter Details Date Type Department Care Team (Latest Contact Info) Description 11/26/2003 [facility] [address] [place] [address] Eliseo Leigh MD [address] [place] [address] HYPOTHYROIDISM NOS (Primary Dx); ANEMIA IN PREG-UNSPEC; OSTEOARTHROS NOS-UNSPEC; Vaccine for influenza Social History Tobacco Use Types Packs/Day Years Used Date Smoking Tobacco: Never Assessed Comments Unknown Sex and Gender Information Value Date Recorded Sex Assigned at Not on file 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
--- OUTSIDE RECORDS SUMMARY | 2024-12-08 11:04 | XMS_ITS | Encounter Summary ---
Author Organization [facility] Address [address] [facility] [place] [address] Care Team Providers Care Technical Sales Support Manager Name Role Phone Eliseo Leigh MD Primary Care Provider Encounter Details Date Type Department Care Team (Latest Contact Info) Description 08/23/2000 Outpatient Historical [facility] Tony Pollard MD NO ADDRESS ON FILE Chondromalacia patellae (Primary Dx); Pain in joint, lower leg; Pain in joint, ankle and foot Social History Tobacco Use Types Packs/Day Years Used Date Smoking Tobacco: Never Assessed Comments Unknown Sex and Gender Information Value Date Recorded Sex Assigned at Not on file 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
--- OUTSIDE RECORDS SUMMARY | 2024-12-08 11:04 | XMS_ITS | Encounter Summary ---
Author Organization [facility] Address [address] [place] [address] Care Team Providers Care Director Name Role Phone Eliseo Leigh MD Primary Care Provider [phone] Encounter Details Date Type Department Care Team (Latest Contact Info) Description 09/11/2013 Ancillary Orders [facility] Pre-Registration [place] CALL TO MAKE APPOINTMENT ONLY [address] [place] [address] Eliseo Leigh MD [address] [address] Other screening mammogram (Primary Dx) Social History Tobacco Use Types Packs/Day Years Used Date Smoking Tobacco: Never Smokeless Tobacco: Never Alcohol Use Standard Drinks/Week Comments No 0 (1 standard drink = 0.6 oz pur e alcohol) Comments No Sex and Gender Information Value Date Recorded Sex Assigned at Not on file 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
--- OUTSIDE RECORDS SUMMARY | 2024-12-08 11:04 | XMS_ITS | Encounter Summary ---
Author Organization [facility] Address [address] [facility] [place] [address] Care Team Providers Care Flower Buncher Or Picker Name Role Phone Eliseo Leigh MD Primary Care Provider [phone] Encounter Details Date Type Department Care Team (Late st Contact Info) Description 05/08/2007 Outpatient Historical [facility] [address] [place] [address] Social History Tobacco Use Types Packs/Day Years Used Date Smoking Tobacco: Never Assessed Comments No Sex and Gender Information Value Date Recorded Sex Assigned at Not on file Legal Sex Female 3:08 AM SINKER WINDER Gender Identity Not on file Sexual Orientation Not on file documented as of this encounter Plan of Treatment Not on file documented as of this encounter Visit Diagnoses Not on filedocumented in this encounter Care Teams Flower Buncher Or Picker Relationship Specialty Start Date End Date Eliseo Leigh MD [address] [place] [phone] PCP - General 04/15/04 11/30/21 documented as of this encounter
--- OUTSIDE RECORDS SUMMARY | 2024-12-08 11:04 | XMS_ITS | Encounter Summary ---
Author Organization [facility] Address [address] [facility] [place] [address] Care Team Providers Care Operations Developer Name Role Phone Eliseo Leigh MD Primary Care Provider [phone] Encounter Details Date Type Department Care Team (Latest Contact Info) Description 05/27/2007 Outpatient Historical [facility] CANCELLED ADMISSION Eliseo Leigh MD [address] [facility] [address] [place] [address] Abn Find-Musculoskel Sys Social History Tobacco Use Types Packs/Day Years Used Date Smoking Tobacco: Never Assessed Comments No Sex and Gender Information Value Date Recorded Sex Assigned at Not on file Legal Sex Female 3:08 AM DESIGN CENTER CONSULTANT Gender Identity Not on file Sexual Orientation Not on file documented as of this encounter Plan of Treatment Not on file documented as of this encounter Visit Diagnoses Diagnosis Nonspecific (abnormal) findings on radiological and other examination of musculoskeletal system documented in this encounter Care Teams Operations Developer Relationship Specialty Start Date End Date Eliseo Leigh MD [address] [facility] [address] [place] [address] PCP - General 04/15/04 11/30/21 documented as of this encounter
--- OUTSIDE RECORDS SUMMARY | 2024-12-08 11:04 | XMS_ITS | Encounter Summary ---
Author Organization [facility] Address [address] [place] [address] Care Team Providers Care Evaporator Supervisor Name Role Phone Eliseo Leigh MD Primary Care Provider [phone] Encounter Details Date Type Department Care Team (Latest Contact Info) Description 11/13/2004 Outpatient Historical [facility] [place] [place] [address] Eliseo Leigh MD [address] [place] [address] ABDOMINAL PAIN UNSPEC SITE (Primary Dx); HYPOTHYROIDISM NOS; HYPERTENSION NOS; CAMPOS'S PALSY Social History Tobacco Use Types Packs/Day Years Used Date Smoking Tobacco: Never Assessed Comments Unknown Sex and Gender Information Value Date Recorded Sex Assigned at Not on file 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
--- OUTSIDE RECORDS SUMMARY | 2024-12-08 11:04 | XMS_ITS ---
Author Organization [facility] Address [address] 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
--- OUTSIDE RECORDS SUMMARY | 2024-12-08 11:04 | XMS_ITS | Encounter Summary ---
Author Organization [facility] Address [address] [facility] [address] Care Team Providers Care Technical Support Internship Name Role Phone Eliseo Leigh MD Primary Care Provider [phone] Encounter Details Date Type Department Care Team (Latest Contact Info) Description 02/23/2001 Outpatient Historical [facility] Sly [place] [address] 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
--- OUTSIDE RECORDS SUMMARY | 2024-12-08 11:04 | XMS_ITS | Encounter Summary ---
Author Organization [facility] Address [address] [place] [address] Care Team Providers Care Letter Sorting Machine Operator Name Role Phone Eliseo Leigh MD Primary Care Provider Encounter Details Date Type Department Care Team (Latest Contact Info) Description 02/11/2004 Outpatient Historical [facility] [place] [place] [address] Eliseo Leigh MD [address] [place] [address] HYPERTENSION NOS (Primary Dx) Social History Tobacco Use Types Packs/Day Years Used Date Smoking Tobacco: Never Assessed Comments Unknown Sex and Gender Information Value Date Recorded Sex Assigned at Not on file Legal Sex Female 3:08 AM HEAD CHARRER Gender Identity Not on file Sexual Orientation Not on file documented as of this encounter Plan of Treatment Not on file documented as of this encounter Visit Diagnoses Diagnosis Unspecified essential hypertension- Primary documented in this encounter Care Teams Letter Sorting Machine Operator Relationship Specialty Start Date End Date Eliseo Leigh MD [address] [place] [address] PCP - General 04/15/04 11/30/21 documented as of this encounter
--- OUTSIDE RECORDS SUMMARY | 2024-12-08 11:04 | XMS_ITS | Encounter Summary ---
Author Organization [facility] Address [address] [place]: Epic Prelude ADT [place] [address] Care Team Providers Care Director Engineering Name Role Phone Eliseo Leigh MD Primary Care Provider [phone] Encounter Details Date Type Department Care Team (Late st Contact Info) Description 02/23/2001 Outpatient Historical Dennys Hudson MD [address] [place] [address] Social History Tobacco Use Types Packs/Day Years Used Date Smoking Tobacco: Never Assessed Comments Unknown Sex and Gender Information Value Date Recorded Sex Assigned at Not on file Legal Sex Female 3:08 AM MATERIALS TECH Gender Identity Not on file Sexual Orientation Not on file documented as of this encounter Plan of Treatment Not on file documented as of this encounter Visit Diagnoses Not on filedocumented in this encounter Care Teams Director Engineering Relationship Specialty Start Date End Date Eliseo Leigh MD [address] [place] [address] PCP - General 04/15/04 11/30/21 documented as of this encounter
--- OUTSIDE RECORDS SUMMARY | 2024-12-08 11:04 | XMS_ITS | Encounter Summary ---
Author Organization [facility] Address [address] [place] [address] Care Team Providers Care Terrazzo Worker Apprentice Name Role Phone Eliseo Leigh MD Primary Care Provider Encounter Details Date Type Department Care Team (Latest Contact Info) Description 04/15/2004 Outpatient Historical [facility] [place] [address] [place] [address] Eliseo Leigh MD [address] [place] [address] JOINT EFFUSION-L/LEG (Primary Dx) Social [...] Primary documented in this encounter Care Teams Terrazzo Worker Apprentice Relationship Specialty Start Date End Date Eliseo Leigh MD [address] [place] [address] PCP - General 04/15/04 11/30/21 documented as of this encounter
--- OUTSIDE RECORDS SUMMARY | 2024-12-08 11:04 | XMS_ITS | Encounter Summary ---
Author Organization [facility] Address [address] [place] [address] Care Team Providers Care Certified Surgical Technician Name Role Phone Eliseo Leigh MD Primary Care Provider [phone] Encounter Details Date Type Department Care Team (Late st Contact Info) Description 11/18/2008 Ancillary Orders [facility] [place] [place] [address] Eliseo Leigh MD [address] [place] [address] Undiagnosed Cardiac Murmurs; Chest Pain Social History Tobacco Use Types Packs/Day Years Used Date Smoking Tobacco: Never Alcohol Use Standard Drinks/Week Comments No 0 (1 standard drink = 0.6 oz pur e alcohol) Comments No Sex and Gender Information Value Date Recorded Sex Assigned at Not on file Legal Sex Female 3:08 AM DIRECTOR OF EARLY CHILDHOOD Gender Identity Not on file Sexual Orientation [...] INTERFACE SYSTEM - 11/18/2008 3:41 PM CDT [facility] [address] [facility] [address] [facility] [address] [place] [address] Transthoracic Echocardiogram Patient: Jacklyn Schultz Study ID: ECHO PRE TEST Gender: F : 1940 Age: 67 years Location: Room: Height: 66 in ( 168 cm ) Study date: November 18, 2008 Patient status: Weight: 168.65 lb ( 76.66 kg ) Study time: 10: 4 BSA: 1.86 m^2 Referring MD: Lu Gomes [id number] R Performing MD: Madhuri Chambers MD Cosmetician Apprentice: Mayda Stephenson Ordering: Eliseo Leigh Referring MD: [...] RV systolic pressure 37 mmHg <30 mmHg [facility] Echo Lab is accredited with the Intersocietal Commission for the Accreditation of Echocardiography Laboratories (ICAEL) Prepared and Electronically Authenticated Madhuri Chambers MD Confirmed November 18, 2008 15:41:01 Procedure Note Ebony Chambers MD - 2008 [facility] - Cardiology [address] [facility] [address] [place] [address] Transthoracic Echocardiogram Patient: Jacklyn Schultz Study ID: ECHO PRE TEST Gender: F : 1940 Age: 67 years Location: Room: Height: 66 in ( 168 cm ) Study date: November 18, 2008 Patient status: Weight: 168.65 lb ( 76.66 kg ) Study time: 10: 4 BSA: 1.86 m^2 Referring MD: Lu Gomes [id number] Kaleb Mcgrath MD: Madhuri Chambers MD Cosmetician Apprentice: Mayda Stephenson Ordering: Eliseo Robles MD: Eliseo [...] RV systolic pressure 37 mmHg <30 mmHg [facility] is accredited with the Intersocietal Commission forthe Accreditation of Echocardiography Laboratories (ICAEL) Prepared and Electronically Authenticated Madhuri Chambers MD Confirmed November 18, 2008 15:41:01 us Eliseo Leigh MD ORDERABLES Edited INTERFACE SYSTEM Refer to clinic/hospital department documented in this encounter Visit Diagnoses Diagnosis Undiagnosed cardiac murmurs Chest pain Chest pain, unspecified documented in this encounter Care Teams Certified Surgical Technician Relationship Specialty Start Date End Date Eliseo Leigh MD [address] [phone] PCP - General 04/15/04 11/30/21 documented as of this encounter
--- OUTSIDE RECORDS SUMMARY | 2024-12-08 11:04 | XMS_ITS | Encounter Summary ---
Author Organization [facility] Address [address] [facility] [place] [address] Care Team Providers Care Adjunct Instructor Name Role Phone Eliseo Leigh MD Primary Care Provider [phone] Encounter Details Date Type Department Care Team (Latest Contact Info) Description 04/15/2004 Outpatient Historical [facility] [place] [address] 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
--- OUTSIDE RECORDS SUMMARY | 2024-12-08 11:04 | XMS_ITS | Encounter Summary ---
Author Organization [facility] Address [address] [facility] [place] [address] Care Team Providers Care Press Reader Name Role Phone Eliseo Leigh MD Primary Care Provider [phone] Encounter Details Date Type Department Care Team (Latest Contact Info) Description 12/02/2004 Outpatient Historical [facility] [address] [place] [address] Taran Porter MD NO ADDRESS ON FILE Aortic valve disorder (Primary Dx) Social History Tobacco Use Types Packs/Day Years Used Date Smoking Tobacco: Never Assessed Comments Unknown Sex and Gender Information Value Date Recorded Sex Assigned at Not on file Legal Sex Female 3:08 AM REFUSE DRIVER Gender Identity Not on file Sexual Orientation Not on file documented as of this encounter Plan of Treatment Not on file documented as of this encounter Visit Diagnoses Diagnosis Aortic valve disorder- Primary Aortic valve disorders documented in this encounter Care Teams Press Reader Relationship Specialty Start Date End Date Eliseo Leigh MD [address] [place] [address] PCP - General 04/15/04 11/30/21 documented as of this encounter
--- OUTSIDE RECORDS SUMMARY | 2024-12-08 11:04 | XMS_ITS | Encounter Summary ---
Author Organization [facility] Address [address] [place] [address] Care Team Providers Care Research Tech Name Role Phone Eliseo Leigh MD Primary Care Provider [phone] Encounter Details Date Type Department Care Team (Latest Contact Info) Description 06/11/[address] [facility] [address] [facility] [address] [place] [address] Eliseo Leigh MD [address] [facility] [address] [place] [address] Other (Abnormal) Findings on Radiological Examination of Breast Social History Tobacco Use Types Packs/Day Years Used Date Smoking Tobacco: Never Alcohol Use Standard Drinks/Week Comments No 0 (1 standard drink = 0.6 oz pur e alcohol) Comments No Sex and Gender Information Value Date Recorded Sex Assigned at Not on file Legal Sex Female 3:08 AM FURNACE MASON Gender Identity Not on file Sexual Orientation [...] breast documented in this encounter Care Teams Research Tech Relationship Specialty Start Date End Date Eliseo Leigh MD [address] [phone] PCP - General 04/15/04 11/30/21 documented as of this encounter
--- OUTSIDE RECORDS SUMMARY | 2024-12-08 11:04 | XMS_ITS | Encounter Summary ---
Author Organization [facility] Address [address] [place] [address] Care Team Providers Care Knitting Machine Fixer Head Name Role Phone Eliseo Leigh MD Primary Care Provider [phone] Reason for Referral * Outpatient Services (Routine) - Closed Specialty Diagnoses / Procedures Referred By Michael t Referred To Contact Diagnoses Other screening mammogram Procedures MAMMO DIGITAL SCREEN BILAT Eliseo Leigh MD [address] [address] Phone: tel: fax: Referral ID Status Reason Start Date Expiration Date Visits Re quested Visits Authorized [id number] Closed 08/07/2013 09/07/2014 1 1 Encounter Details Date Type Department Care Team (Latest Contact Info) Description 08/07/2013 Ancillary Orders [facility] Pre-Registration [place] CALL TO MAKE APPOINTMENT ONLY [address] [place] [address] Eliseo Leigh MD [address] [address] Other screening mammogram (Primary Dx) Social History Tobacco Use Types Packs/Day Years Used Date Smoking Tobacco: Never Smokeless Tobacco: Never Alcohol Use Standard Drinks/Week Comments No 0 (1 standard drink = 0.6 oz pur e alcohol) Comments No Sex and Gender Information Value Date Recorded Sex Assigned at Not on file Legal Sex Female 3:08 AM BUCKET HOOKER Gender Identity Not on file Sexual Orientation [...] mammogram documented in this encounter Care Teams Knitting Machine Fixer Head Relationship Specialty Start Date End Date Eliseo Leigh MD [address] [phone] PCP - General 04/15/04 11/30/21 documented as of this encounter
--- OUTSIDE RECORDS SUMMARY | 2024-12-08 11:04 | XMS_ITS | Encounter Summary ---
Author Organization [facility] Address [address] [place] [address] Care Team Providers Care Recruiting Assistant Name Role Phone Eliseo Leigh MD Primary Care Provider [phone] Encounter Details Date Type Department Care Team (Latest Contact Info) Description 02/23/2001 Outpatient Historical [facility] [place] [place] [address] Dennys Hudson MD [address] [place] [address] ABDOMINAL PAIN UNSPEC SITE (Primary Dx); HYPOTHYROIDISM NOS Social History Tobacco Use Types Packs/Day Years Used Date Smoking Tobacco: Never Assessed Comments Unknown Sex and Gender Information Value Date Recorded Sex Assigned at Not on file Legal Sex Female 3:08 AM SERVICE PORTER Gender Identity Not on file Sexual Orientation Not on file documented as of this encounter Plan of Treatment Not on file documented as of this encounter Visit Diagnoses Diagnosis Abdominal pain, unspecified site- Primary Unspecified hypothyroidism documented in this encounter Care Teams Recruiting Assistant Relationship Specialty Start Date End Date Eliseo Leigh MD [address] [place] [address] PCP - General 04/15/04 11/30/21 documented as of this encounter
--- OUTSIDE RECORDS SUMMARY | 2024-12-08 11:04 | XMS_ITS | Encounter Summary ---
Author Organization [facility] Address [address] [place] [address] Care Team Providers Care Chemist Instrumentation Name Role Phone Eliseo Leigh MD Primary Care Provider [phone] Encounter Details Date Type Department Care Team (Latest Contact Info) Description 04/15/2004 Outpatient Historical [facility] [place] [place] [address] Eliseo Leigh MD [address] [place] [address] JOINT PAIN-L/LEG (Primary Dx); HYPERTENSION NOS; SYNOVITIS NOS Social History Tobacco Use Types Packs/Day Years Used Date Smoking Tobacco: Never Assessed Comments Unknown Sex and Gender Information Value Date Recorded Sex Assigned at Not on file Legal Sex Female 3:08 AM CAR WASH ATTENDANT AUTOMATIC Gender Identity Not on file Sexual Orientation Not on file documented as of this encounter Plan of Treatment Not on file documented as of this encounter Visit Diagnoses Diagnosis Pain in joint, lower leg- Primary Unspecified essential hypertension Synovitis and tenosynovitis, unspecified documented in this encounter Care Teams Chemist Instrumentation Relationship Specialty Start Date End Date Eliseo Leigh MD [address] [place] [address] PCP - General 04/15/04 11/30/21 documented as of this encounter
--- OUTSIDE RECORDS SUMMARY | 2024-12-08 11:04 | XMS_ITS | Encounter Summary ---
Author Organization [facility] Address [address] [facility] [address] [place]: Epic Prelude ADT [place] [address] Care Team Providers Care Chlorine Cells Operator Name Role Phone Eliseo Leigh MD Primary Care Provider [phone] Encounter Details Date Type Department Care Team (Late st Contact Info) Description 10/04/2000 Outpatient Historical Tony Pollard MD NO ADDRESS ON FILE Social History Tobacco Use Types Packs/Day Years Used Date Smoking Tobacco: Never Assessed Comments Unknown Sex and Gender Information Value Date Recorded Sex Assigned at Not on file Legal Sex Female 3:08 AM ASSEMBLY PERSON Gender Identity Not on file Sexual Orientation Not on file documented as of this encounter Plan of Treatment Not on file documented as of this encounter Visit Diagnoses Not on filedocumented in this encounter Care Teams Chlorine Cells Operator Relationship Specialty Start Date End Date Eliseo Leigh MD [address] [facility] [address] [place] [phone] PCP - General 04/15/04 11/30/21 documented as of this encounter
--- OUTSIDE RECORDS SUMMARY | 2024-12-08 11:04 | XMS_ITS | Encounter Summary ---
Author Organization [facility] Address [address] [place] [address] Care Team Providers Care Development Vice President Name Role Phone Eliseo Leigh MD Primary Care Provider [phone] Encounter Details Date Type Department Care Team (Late st Contact Info) Description 05/01/2009 Ancillary Orders [facility] [place] [place] [address] Eliseo Leigh MD [address] [place] [address] Other Screening Mammogram Social History Tobacco Use Types Packs/Day Years Used Date Smoking Tobacco: Never Alcohol Use Standard Drinks/Week Comments No 0 (1 standard drink = 0.6 oz pur e alcohol) Comments No Sex and Gender Information Value Date Recorded Sex Assigned at Not on file Legal Sex Female 3:08 AM GRINDING MILL OPERATOR Gender Identity Not on file Sexual [...] mammogram documented in this encounter Care Teams Development Vice President Relationship Specialty Start Date End Date Eliseo Leigh MD [address] [phone] PCP - General 04/15/04 11/30/21 documented as of this encounter
--- OUTSIDE RECORDS SUMMARY | 2024-12-08 11:04 | XMS_ITS ---
Author Organization [facility] Address [address] [place] [address] Care Team Providers Care Child Day Care Provider Name Role Phone Unavailable Primary Care Provider [...]
--- OUTSIDE RECORDS SUMMARY | 2024-12-08 11:04 | XMS_ITS | Encounter Summary ---
Author Organization [facility] Address [address] [facility] [place] [address] Care Team Providers Care Water Resources Technical Officer Name Role Phone Eliseo Leigh MD Primary Care Provider [phone] Encounter Details Date Type Department Care Team (Late st Contact Info) Description 08/23/2000 Outpatient Historical [facility] Yimi Buenrostro MD [address] [place] [address] Unspecified essential hypertension (Primary Dx) Social History Tobacco Use Types Packs/Day Years Used Date Smoking Tobacco: Never Assessed Comments Unknown Sex and Gender Information Value Date Recorded Sex Assigned at Not on file Legal Sex Female 3:08 AM ENGINEERING SPECIALIST Gender Identity Not on file Sexual Orientation Not on file documented as of this encounter Plan of Treatment Not on file documented as of this encounter Visit Diagnoses Diagnosis Unspecified essential hypertension- Primary documented in this encounter Care Teams Water Resources Technical Officer Relationship Specialty Start Date End Date Eliseo Leigh MD [address] [place] [phone] PCP - General 04/15/04 11/30/21 documented as of this encounter
--- OUTSIDE RECORDS SUMMARY | 2024-12-08 11:04 | XMS_ITS | Encounter Summary ---
Author Organization [facility] Address [address] [place] [address] Care Team Providers Care Aluminum Boat Assembly Supervisor Name Role Phone Eliseo Leigh MD Primary Care Provider [phone] Reason for Referral * Radiology Services (Routine) - Closed Specialty Diagnoses / Procedures Referred By Contac t Referred To Contact Radiology Diagnoses Encounter for screening mammogram for malignant neoplasm of breast Procedures MAMMO SCRN BILAT 3D OLEG W OR WO CAD Eliseo Leigh MD [address] [facility] [address] [place] [address] Phone: tel: fax: [facility] [address] [facility] [address] [place] [address] Phone: tel: fax: Referral ID Status Reason Start Date Expiration Date Visits Re quested Visits Authorized [id number] Closed 11/21/2017 12/22/2018 1 1 Encounter Details Date Type Department Care Team (Latest Contact Info) Description 11/21/2017 Ancillary Orders [facility] Pre-Registration [place] CALL TO MAKE APPOINTMENT ONLY [address] [place] [address] Eliseo Leigh MD [address] [phone] Encounter for screening mammogram for malignant neoplasm of breast Social History Tobacco Use Types Packs/Day Years Used Date Smoking Tobacco: Never Smokeless Tobacco: Never Alcohol Use Standard Drinks/Week Comments No 0 (1 standard drink = 0.6 oz pur e alcohol) Comments No Sex and Gender Information Value Date Recorded Sex Assigned at Not on file Legal Sex Female 3:08 AM 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
--- OUTSIDE RECORDS SUMMARY | 2024-12-08 11:04 | XMS_ITS | Encounter Summary ---
Author Organization [facility] Address [address] [place] [address] Care Team Providers Care Shellfish Harvester Name Role Phone Eliseo Leigh MD Primary Care Provider [phone] Encounter Details Date Type Department Care Team (Late st Contact Info) Description 01/08/2002 Outpatient Historical [facility] [address] [place] [address] Russell Peres MD NO ADDRESS ON FILE Social History Tobacco Use Types Packs/Day Years Used Date Smoking Tobacco: Never Assessed Comments Unknown Sex and Gender Information Value Date Recorded Sex Assigned at Not on file Legal Sex Female 3:[address] [place] [employer]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
--- OUTSIDE RECORDS SUMMARY | 2024-12-08 11:04 | XMS_ITS | Encounter Summary ---
Author Organization [facility] Address [address] [place] [address] Care Team Providers Care Scarfing Machine Operator Name Role Phone Eliseo Leigh MD Primary Care Provider [phone] Encounter Details Date Type Department Care Team (Late st Contact Info) Description 03/18/2008 Ancillary Orders [facility] [address] [facility] [address] [place] [address] Eliseo Leigh MD [address] [facility] [address] [place] [address] Screening Mammogram Social History Tobacco Use Types Packs/Day Years Used Date Smoking Tobacco: Never Alcohol Use Standard Drinks/Week Comments No 0 (1 standard drink = 0.6 oz pur e alcohol) Comments No Sex and Gender Information Value Date Recorded Sex Assigned at Not on file 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
--- OUTSIDE RECORDS SUMMARY | 2024-12-08 11:04 | XMS_ITS | Encounter Summary ---
Author Organization [facility] Address [address] [place] [address] Care Team Providers Care Optometry Teacher Name Role Phone Eliseo Leigh MD Primary Care Provider [phone] Reason for Referral * Outpatient Services (Routine) - Closed Specialty Diagnoses / Procedures Referred By Contmegha t Referred To Contact Diagnoses Other screening mammogram Procedures MAMMO DIGITAL SCREEN BILAT Eliseo Leigh MD [address] [address] Phone: tel: fax: [facility] Pre-Registration [place] CALL TO MAKE APPOINTMENT ONLY [address] [place] [address] Phone: tel: fax: Referral ID Status Reason Start Date Expiration Date Visits Re quested Visits Authorized [id number] Closed 06/06/2014 07/07/2015 1 1 Encounter Details Date Type Department Care Team (Latest Contact Info) Description 06/06/2014 Ancillary Orders [facility] Pre-Registration [place] CALL TO MAKE APPOINTMENT ONLY [address] [place] [address] Eliseo Leigh MD [address] [place] [address] Other screening mammogram (Primary Dx) Social History Tobacco Use Types Packs/Day Years Used Date Smoking Tobacco: Never Smokeless Tobacco: Never Alcohol Use Standard Drinks/Week Comments No 0 (1 standard drink = 0.6 oz pur e alcohol) Comments No Sex and Gender Information Value Date Recorded Sex Assigned at Not on file 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
--- OUTSIDE RECORDS SUMMARY | 2024-12-08 11:04 | XMS_ITS | Encounter Summary ---
Author Organization [facility] Address [address] [place] [address] Care Team Providers Care It Manager Name Role Phone Eliseo Leigh MD Primary Care Provider [phone] Reason for Referral * Outpatient Services (Routine) - Closed Specialty Diagnoses / Procedures Referred By Contac t Referred To Contact Diagnoses Encounter for screening mammogram for malignant neoplasm of breast Procedures MAMMO SCREEN BILAT W OR WO CAD Eliseo Leigh MD [address] [address] Phone: tel: fax: Referral ID Status Reason Start Date Expiration Date Visits Re quested Visits Authorized [id number] Closed 10/26/2016 11/26/2017 1 1 Encounter Details Date Type Department Care Team (Latest Contact Info) Description 10/26/2016 Ancillary Orders [facility] Pre-Registration [place] CALL TO MAKE APPOINTMENT ONLY [address] [place] [address] Eliseo Leigh MD [address] [address] Encounter for screening mammogram for malignant neoplasm of breast Social History Tobacco Use Types Packs/Day Years Used Date Smoking Tobacco: Never Smokeless Tobacco: Never Alcohol Use Standard Drinks/Week Comments No 0 (1 standard drink = 0.6 oz pur e alcohol) Comments No Sex and Gender Information Value Date Recorded Sex Assigned at Not on file Legal Sex Female 3:08 AM CITRUS PEELER Gender Identity Not on file Sexual Orientation [...] documented as of this encounter Care Teams It Manager Relationship Specialty Start Date End Date Eliseo Leigh MD [address] [address] PCP - General 04/15/04 11/30/21 documented as of this encounter
--- OUTSIDE RECORDS SUMMARY | 2024-12-08 11:04 | XMS_ITS | Encounter Summary ---
Author Organization [facility] Address [address] [facility] [place] [address] Care Team Providers Care Thermite Welder Name Role Phone Eliseo Leigh MD Primary Care Provider [phone] Encounter Details Date Type Department Care Team (Latest Contact Info) Description 06/06/2001 Outpatient Historical [facility] [place] [address] [place] [phone] Mckay Evangelista MD NO ADDRESS ON FILE SEBORRHEIC KERATOSIS NOS (Primary Dx) Social History Tobacco Use Types Packs/Day Years Used Date Smoking Tobacco: Never Assessed Comments Unknown Sex and Gender Information Value Date Recorded Sex Assigned at Not on file 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
--- OUTSIDE RECORDS SUMMARY | 2024-12-08 11:04 | XMS_ITS | Encounter Summary ---
Author Organization [facility] Address [address] [place] [address] Care Team Providers Care Sandwich Machine Operator Name Role Phone Eliseo Leigh MD Primary Care Provider [phone] Encounter Details Date Type Department Care Team (Latest Contact Info) Description 08/11/2001 Outpatient Historical [facility] [place] [place] [address] Dennys Hudson MD [address] [place] [address] HYPERTENSION NOS (Primary Dx); HYPOTHYROIDISM NOS; OSTEOPOROSIS NOS Social History Tobacco Use Types Packs/Day Years Used Date Smoking Tobacco: Never Assessed Comments Unknown Sex and Gender Information Value Date Recorded Sex Assigned at Not on file Legal Sex Female 3:08 AM PUBLIC RELATIONS 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
--- OUTSIDE RECORDS SUMMARY | 2024-12-08 11:04 | XMS_ITS | Clinical Summary ---
Author Organization [facility] tone Address [address] [place] [address] Care Team Providers Care Head Mixer Name Role Phone Eliseo Leigh MD Primary Care Provider [phone] Allergies Active Allergy Reactions Criticality Noted Date Comments Homar Inhibitors Unknown Caused kidney issues per patient Codeine Headache Low Covid-19 Vaccine, Mrna, [id number], Lnp-S (Moderna) Rash Low 12/11/2020 Ezetimibe Unknown Weakness, feeling flush Rylgjfi-Wlo-Fuc Reductase Inhibitors Muscle Pain,Weakness Low Medications Syringe [...] AQ) 55 mcg nasal spray Administer 1 Haslet in each nostril daily. Active cholecalcifero l [...] valve 06/13/2022 Nonrheumatic mitral valve regurgitation 06/14/19 [facility] current use of antiarrhythmic drug 05/2022 S/P [...] Date Type Department Care Team Description 11/26/2024 [facility] [address] [place] [address] Eliseo Leigh MD 11/10/2024 [facility]Jingit [place] [address] [facility] [address] [place] [address] Eliseo Leigh MD 10/30/2024 8:00 AM CDT Procedure visit [facility] [address] [facility] [address] [place] [address] Ritesh Chambers MD Complete heart block (CMS/HCC) (Primary Dx); Sick sinus syndrome (CMS/HCC); Atrial fibrillation, unspecified type (CMS/HCC); Cardiac pacemaker in situ 10/24/2024 External Device Data STL ABSTRACTION Provider, Abstract 10/16/2024 [facility] [address] [facility] [address] [place] [address] Eliseo Leigh MD 10/09/2024 Transcribe Orders [facility] Centralized Scheduling [place] CALL TO MAKE APPOINTMENT ONLY [address] [place] [address] Eliseo Leigh MD Visit for screening mammogram (Primary Dx) 09/26/2024 External Device Data STL ABSTRACTION Provider, Abstract 09/17/2024 10:20 AM CDT Office [facility] [address] [place] [address] Lauren Jacques NP Status post total replacement of right hip (Primary Dx) 09/17/2024 9:40 AM CDT Ancillary Procedure [facility] [address] [place] [address] Julio Macdonald MD Status post total replacement [...] on file Legal Sex Female 6:28 AM BLEACH MACHINE OPERATOR Gender Identity Not on file [...] st Contact Info) Description 12/26/2024 1:50 PM BLEACH MACHINE OPERATOR Appointment [facility] [address] [address] Eliseo Leigh MD [address] [place] [address] 01/11/2025 11:20 AM BLEACH MACHINE OPERATOR Office Visit [facility] [address] [place] [address] Jose Bob CRNP [address] [facility] [address] [place] [address] 06/27/2025 11:30 AM CDT Appointment [facility] [address] [facility] [place] [address] Jarocho Good MD [address] [place] [address] 06/27/2025 1:30 PM CDT Office Visit [facility] [address] [place] [address] Jarocho Good MD [address] [place] [address] Health Maintenance Due Date Last Done [...] 11/26/2021, Additional history exists COVID-19 Vaccine (2 2024-2 6 season) 2024 08/29/2020 PNEUMOCOCCAL VACCINE 50+ YEARS Completed 0 10/30/2019, 03/21/2014, 03/12/2008, Additional history exists Medical Devices Implanted Type Area Drawing Frame Tender Device Identifier Shelf Expiration Date Model / Serial / Lot Log [id number] - Cement - 1 - Simplex W/Tobra 6197-9-001 Implanted:Qty : 1 on 11/16/2010 Cement Right: Knee [employer]IE[employer] 05/08/2012 6197-9-001 / / [id number] Simplex W/Tobra 6197-9-001 - Sna Implanted:Qty : 2 on 03/01/2011 Cement Left: Knee [employer] 09/29/2012 6197-9-001 / NA / [id number] Cement Activos W/Judd C10a Implanted:02/2014 by Scott Posadas MD (Quantity not on file) Cement Vertebrae [employer] - SPINAL fka KYPHON 10/07/2016 C10A / / [id number] Description:T12 Kyphoplasty Closure Perclose Prostyle Sut Mediate 61085-77 - [id number] Implanted:Qty : 1 on 06/22/2022 at [facility] Closure Device Right: Groin MAGUIRE- VASC DEVICE 04/06/2024 81304-56 / / [id number] Closure Perclose Prostyle Sut Mediate 28652-32 - [id number] Implanted:Qty : 1 on 06/22/2022 at [facility] Closure Device Right: Groin MAGUIRE- VASC DEVICE 04/06/2024 91668-93 / / [id number] Dev Closure Angioseal 6fr Vip [id number] - [id number] Implanted:Qty : 1 on 06/22/2022 at [facility] Closure Device Left: Groin MAGUIRE [facility] [employer] 01/06/2023 [id number] / / [id number] Lens Io Tecnis 1pc 22 [id number] - [id number] Implanted:Qty : 1 on 05/24/2013 by Angel Muse MD Eye Left: Eye [employer] 01/23/2017 [id number] / [id number] / Log [id number] - Bard Patches, Pledgets, Jonelle, Fabrics - 1 - Irving Ptfe Thck 1.6mmx2.5x2.5 cm [id number] Implanted:Qty : 1 on 12/18/2008 Graft CR BARD- JOHNNIE VASC INC 01/07/2013 [id number] / / [id number] Log 96916 - Bard Patches, Pledgets, Jonelle, Fabrics - 2 - Irving Ptfe Thck 1.6mmx2.5x2.5 cm [id number] Implanted:Qty : 1 on 12/18/2008 Graft CR BARD- JOHNNIE VASC INC 07/08/2013 [id number] / / [id number] Head Fem Cer 01/20 40mm 1365-40-710 - [id number] Implanted:Qty : 1 on 09/15/2023 by Julio Macdonald MD at [facility] Hip Right: Hip J&J- [employer]Y OR[employer] INC [id number] 06/06/2028 0 / / [id number] Stem Fem Actis Hi Colr Sz5 1010-12-050 - [id number] Implanted:Qty : 1 on 09/15/2023 by Julio Macdonald MD at [facility] Hip Right: Hip J&J- [employer] INC [id number] 08/06/2033 1010-01-11 0 / / [id number] Log [id number] - [place] Total Knee - 1 - Comp Fem Trthln Cr Sz4 Rt 5510-F-402 Implanted:Qty : 1 on 11/16/2010 Knee Right: Knee [employer] 07/09/2015 5510-F-402 / / [id number] Log [id number] - Laurie Total Knee - 1 - Comp Tib Triathlon Cmnt 5520-B-400 Implanted:Qty : 1 on 11/16/2010 Knee Right: Knee [employer] 09/08/2015 5520-B-400 / / [id number] Log [id number] - Laurie Total Knee - 1 - Insert Tib Trthln X3 5531-G-411 Implanted:Qty : 1 on 11/16/2010 Knee Right: Knee [employer] 08/08/2015 5531-G-411 / / [id number] Log [id number] - [place] Total Knee - 1 - Patella Trthln Sym X3 5550-G-339 Implanted:Qty : 1 on 11/16/2010 Knee Right: [...] [employer] 09/30/2015 5531-P-411 / NA / [id number] Patella Trthln Sym Poly 5550-L-339 - Sna Implanted:Qty : 1 on 03/01/2011 Knee Left: Knee LAURIE- TFG Card SolutionsMEDICA INT INC 10/31/2015 5550-L-339 / NA / [id number] Lead Pacing Capsure Fix Novus 52cm [id number] - Csc - [id number] Implanted:Qty : 1 on 10/14/2022 at [facility] Lead Left: Chest [employer]- CRM - BULK BUY 12/25/2023 [id number] / [id number] / Pacemaker [place] Xt Surescan W1dr01 Pacemaker [employer]- CRM - BULK BUY [id number] 11/21/2019 W1DR01 / [id number] / Pacemaker Teresa Xt Dr Peggy Ipg Dual Chmbr Surescan W1dr01 - [id number] Implanted:Qty : 1 on 10/14/2022 at [facility] Pacemaker Left: Chest [employer]- CRM - BULK BUY 03/06/2024 W1DR01 / [id number] / Pin Headless Fltd 02/14 [id number] Implanted:Qty : 1 on 11/16/2010 [facility] [employer] [id number] / / Description:moved down from pick list- Implant Type-TS Dlvry Sys Evolut Fx 23-29mm S-Epignpgj-27 29 - [id number] Implanted:Qty : 1 on 06/22/2022 at [facility] Valve N/A: Heart [employer]- HEART VALVE 02/11/2024 D-EVOLUTFX -2329 / [id number] / [id number] Vlv Aort Evolut Fx Tavr 26mm Evolutfx-26 - [id number] Implanted:Qty : 1 on 06/22/2022 at [facility] Valve N/A: Aorta [employer]- HEART VALVE 04/05/2024 EVOLUTFX-2 6 / [id number] / [id number] - [id number] Implanted:Qty : 1 on 12/18/2008 Heart 05/08/2013 LXA25 / [id number] / Description:SorinGroup Mitro flow Aortic Heart Valve (size 25mm) Liner Acet Emphasys [id number] Implanted:Qty : 1 on 09/15/2023 by Julio Macdonald MD at [facility] Right: Hip 06/06/2028 [id number] / / [id number] Shell Acet Emphyasys 54mm 3h Implanted:Qty : 1 on 09/15/2023 by Julio Macdonald MD at [facility] Right: Hip 07/07/2033 [id number] / / [id number] Procedures Procedure Name Priority Date/Time Associated Diagnosis Comments WI REM INTERROG PM/LDLS PM/IDS <90 D TECH REVIEW Routine 10/29/2024 8:09 PM CDT Complete heart block (CMS/HCC) Sick sinus syndrome (CMS/HCC) Atrial fibrillation, unspecified type (CMS/HCC) Cardiac pacemaker in situ WI REM INTERROG PM/LDLS PM <90 D PHYS/QHP [...] Recently Relevant to Health Maintenance Results * WI REM INTERROG PM/LDLS PM <90 D PHYS/QHP, WI REM INTERROG PM/LDLS PM/IDS <90 D TECH [...] details. Ritesh Chambers MD CARDI[facility] SERVICES ORDERA HASMUKH Edited Result - Final INTERFACE SYSTEM Refer [...] Insurance [address] [place] [address] MEDICARE PART A AND B [facility] [id number] * Guarantor: JACKLYN SCHULTZ Account Type Relation to Patient Date of Phone Billing Address Personal/Family [address] [place] [address] RX ALLWIN DATA Medicare Part B RX [employer] RX Member Subscriber Plan / Payer (Ef fective 2022-Present) Name:Jacklyn Schultz Relation to Subscriber:Self Name:Jacklyn Schultz Payer ID:Not on file Group ID:[id number] Type:RX Commercial Address: [place] Advance Directives For more information, please contact: [phone] * Full Code (Latest Code Status on [...] 3:20 PM 06/17/2022 5:55 PM Care Teams Head Mixer Relationship Specialty Start Date End Date Eliseo Leigh MD [address] [phone] PCP - General Family Practice 01/30/24
--- OUTSIDE RECORDS SUMMARY | 2024-12-08 11:04 | XMS_ITS | Encounter Summary ---
Author Organization [facility] Address [address] [place] [address] Care Team Providers Care Technical Support Agent Name Role Phone Eliseo Leigh MD Primary Care Provider [phone] Reason for Referral * Outpatient Services (Routine) - Closed Specialty Diagnoses / Procedures Referred By Michael t Referred To Contact Diagnoses Other screening mammogram Procedures MAMMO DIGITAL SCREEN BILAT Eliseo Leigh MD [address] [address] Phone: tel: fax: Referral ID Status Reason Start Date Expiration Date Visits Re quested Visits Authorized [id number] Closed 05/29/2010 11/25/2010 1 1 Encounter Details Date Type Department Care Team (Latest Contact Info) Description 05/29/2010 Ancillary Orders [facility] Pre-Registration [place] CALL TO MAKE APPOINTMENT ONLY [address] [place] [address] Eliseo Leigh MD [address] [address] Other screening mammogram Social History Tobacco Use Types Packs/Day Years Used Date Smoking Tobacco: Never Alcohol Use Standard Drinks/Week Comments No 0 (1 standard drink = 0.6 oz pur e alcohol) Comments No Sex and Gender Information Value Date Recorded Sex Assigned at Not on file 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
--- OUTSIDE RECORDS SUMMARY | 2024-12-08 11:04 | XMS_ITS | Encounter Summary ---
Author Organization [facility] Address [address] 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
--- OUTSIDE RECORDS SUMMARY | 2024-12-08 11:04 | XMS_ITS | Encounter Summary ---
Author Organization [facility] Address [address] [place] [address] Care Team Providers Care Biodiesel Production Technician Name Role Phone Eliseo Leigh MD Primary Care Provider [phone] Encounter Details Date Type Department Care Team (Late st Contact Info) Description 08/08/2000 Outpatient Historical [facility] [address] [place] [address] Yimi Buenrostro MD [facility] [place] [address] Unspecified essential hypertension (Primary Dx); Migraine with [...] file Legal Sex Female 3:08 AM HEAD SAWYER AUTOMATIC Gender Identity Not on file Sexual [...] cervix documented in this encounter Care Teams Biodiesel Production Technician Relationship Specialty Start Date End Date Eliseo Leigh MD [address] [address] PCP - General 04/15/04 11/30/21 documented as of this encounter
--- OUTSIDE RECORDS SUMMARY | 2024-12-08 11:04 | XMS_ITS | Encounter Summary ---
Author Organization [facility] Address [address] [place] [address] Care Team Providers Care Ux Information Architect Name Role Phone Eliseo Leigh MD Primary Care Provider [phone] Encounter Details Date Type Department Care Team (Late st Contact Info) Description 08/23/2000 Outpatient Historical [facility] [address] [place] [address] Yimi Buenrostro MD [address] [place] [address] Osteoarthrosis, unspecified whether generalized or localized, unspecified site (Primary Dx); Unspecified essential hypertension; Hyperpotassemia; Unspecified hypothyroidism Social History Tobacco Use Types Packs/Day Years Used Date Smoking Tobacco: Never Assessed Comments Unknown Sex and Gender Information Value Date Recorded Sex Assigned at Not on file Legal Sex Female 3:08 AM DIE OPERATOR Gender Identity Not on file Sexual Orientation Not on file documented as of this encounter Plan of Treatment Not on file documented as of this encounter Visit Diagnoses Diagnosis Osteoarthrosis, unspecified whether generalized or localized, unspecified site- Primary Unspecified essential hypertension Hyperpotassemia Unspecified hypothyroidism documented in this encounter Care Teams Ux Information Architect Relationship Specialty Start Date End Date Eliseo Leigh MD [address] [address] PCP - General 04/15/04 11/30/21 documented as of this encounter
--- OUTSIDE RECORDS SUMMARY | 2024-12-08 11:04 | XMS_ITS | Encounter Summary ---
Author Organization [facility] Address [address] [place] [address] Care Team Providers Care Sales Representative Name Role Phone Eliseo Leigh MD Primary Care Provider [phone] Encounter Details Date Type Department Care Team (Late st Contact Info) Description 05/22/2007 Outpatient Historical [facility] Imaging Services [address] [place] [address] Eilseo Leigh MD [address] [address] Lumbago Social History Tobacco Use Types Packs/Day Years Used Date Smoking Tobacco: Never Assessed Comments No Sex and Gender Information Value Date Recorded Sex Assigned at Not on file 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 1103 Dictated By: Polo Rodrigez M.D. Electronically Signed By: Polo Rodrigez M.D. Date Signed: 06/30/07 [facility] Procedure Note Santos Rodrigez - 06/30/2007 [...] without contrast and with 15 mL of[facility]. [facility] 1103 Dictated By: Polo Rodrigez M.D. Electronically Signed By: Polo Rodrigez M.D. Date Signed: 06/30/07 [facility] Eliseo Leigh MD MR ORDERABLES Edited documented in this encounter Visit Diagnoses Diagnosis Lumbago documented in this encounter Care Teams Sales Representative Relationship Specialty Start Date End Date Eliseo Leigh MD [address] [address] PCP - General 04/15/04 11/30/21 documented as of this encounter
--- OUTSIDE RECORDS SUMMARY | 2024-12-08 11:04 | XMS_ITS | Encounter Summary ---
Author Organization [facility] Address [address] [place] [address] Care Team Providers Care Operations Planner Name Role Phone Eliseo Leigh MD Primary Care Provider [phone] Encounter Details Date Type Department Care Team (Latest Contact Info) Description 11/01/2000 Outpatient Historical [facility] Tony Pollard MD NO ADDRESS ON FILE Unspecified closed fracture of ankle (Primary Dx) Social History Tobacco Use Types Packs/Day Years Used Date Smoking Tobacco: Never Assessed Comments Unknown Sex and Gender Information Value Date Recorded Sex Assigned at Not on file 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
--- OUTSIDE RECORDS SUMMARY | 2024-12-08 11:04 | XMS_ITS | Encounter Summary ---
Author Organization [facility] Address [address] [place] [address] Care Team Providers Care Production Support Consultant Name Role Phone Eliseo Leigh MD Primary Care Provider [phone] Encounter Details Date Type Department Care Team (Latest Contact Info) Description 07/24/2004 Outpatient Historical [facility] Dermatology- [facility] [place] [address] [place] [address] Mckay Evangelista MD NO ADDRESS ON FILE BENIGN ELIZABETH SKIN FACE NEC (Primary Dx); SEBORRHEIC KERATOSIS NOS Social History Tobacco Use Types Packs/Day Years Used Date Smoking Tobacco: Never Assessed Comments Unknown Sex and Gender Information Value Date Recorded Sex Assigned at Not on file 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
--- OUTSIDE RECORDS SUMMARY | 2024-12-08 11:04 | XMS_ITS | Encounter Summary ---
Author Organization [facility] Address [address] [place] [address] Care Team Providers Care Postal Superintendent Name Role Phone Eliseo Leigh MD Primary Care Provider [phone] Encounter Details Date Type Department Care Team (Latest Contact Info) Description 04/15/2004 Outpatient Historical [facility] [address] [place] [address] Eliseo Leigh MD [address] [address] SCREENING MAMM-MAILG NEOPL-OTHER (Primary Dx) Social History Tobacco Use Types Packs/Day Years Used Date Smoking Tobacco: Never Assessed Comments Unknown Sex and Gender Information Value Date Recorded Sex Assigned at Not on file Legal Sex Female 3:08 AM PUBLIC INFORMATION COORDINATOR Gender Identity Not on file Sexual Orientation Not on file documented as of this encounter Plan of Treatment Not on file documented as of this encounter Visit Diagnoses Diagnosis Other screening mammogram- Primary documented in this encounter Care Teams Postal Superintendent Relationship Specialty Start Date End Date Eliseo Leigh MD [address] [facility] [address] [place] [address] PCP - General 04/15/04 11/30/21 documented as of this encounter
--- OUTSIDE RECORDS SUMMARY | 2024-12-08 11:04 | XMS_ITS | Encounter Summary ---
Author Organization [facility] Address [address] [place] [facility] [place] [address] Care Team Providers Care Automotive Engineering Teacher Name Role Phone Eliseo Leigh MD Primary Care Provider [phone] Encounter Details Date Type Department Care Team (Late st Contact Info) Description 10/04/2000 Outpatient Historical [facility] Yimi Buenrostro MD [address] [place] [address] Hyperpotassemia (Primary Dx); Unspecified hypothyroidism Social History Tobacco Use Types Packs/Day Years Used Date Smoking Tobacco: Never Assessed Comments Unknown Sex and Gender Information Value Date Recorded Sex Assigned at Not on file 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
--- OUTSIDE RECORDS SUMMARY | 2024-12-08 11:04 | XMS_ITS | Encounter Summary ---
Author Organization [facility] Address [address] [place] [facility] [place] [address] Care Team Providers Care Pail Tester Name Role Phone Eliseo Leigh MD Primary Care Provider [phone] Encounter Details Date Type Department Care Team (Late st Contact Info) Description 08/31/2000 Outpatient Historical [facility] Yimi Buenrostro MD [address] [place] [address] Hypopotassemia (Primary Dx) Social History Tobacco Use Types Packs/Day Years Used Date Smoking Tobacco: Never Assessed Comments Unknown Sex and Gender Information Value Date Recorded Sex Assigned at Not on file Legal Sex Female 3:08 AM 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
--- OUTSIDE RECORDS SUMMARY | 2024-12-08 11:04 | XMS_ITS | Encounter Summary ---
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, Including Hip Social History Tobacco Use Types Packs/Day Years Used Date Smoking Tobacco: Never Assessed Comments No Sex and Gender Information Value Date Recorded Sex Assigned at Not on file 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
--- OUTSIDE RECORDS SUMMARY | 2024-12-08 11:04 | XMS_ITS | Encounter Summary ---
Author Organization [facility] Address [address] [place] [address] Care Team Providers Care Product Representative Name Role Phone Eliseo Leigh MD Primary Care Provider [phone] Encounter Details Date Type Department Care Team (Late st Contact Info) Description 08/08/2000 Outpatient Historical [facility] Yimi Buenrostro MD [address] [place] [address] Routine medical exam (Primary Dx); Unspecified essential hypertension Social History Tobacco Use Types Packs/Day Years Used Date Smoking Tobacco: Never Assessed Comments Unknown Sex and Gender Information Value Date Recorded Sex Assigned at Not on file 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
[2024-12-08 11:05] VITALS: BP 151/88; PULSE 97; RESP 16; TEMP 36.7; O2SAT 96; BMI 23.1
--- OUTSIDE RECORDS SUMMARY | 2024-12-08 11:05 | XMS_ITS | Encounter Summary ---
Author Organization [facility] Address [address] [facility] [place] [address] Care Team Providers Care Vat Washer Name Role Phone Eliseo Leigh MD Primary Care Provider [phone] Encounter Details Date Type Department Care Team (Latest Contact Info) Description 09/12/1998 Outpatient Historical [facility] Tony Pollard MD NO ADDRESS ON FILE Unspecified closed fracture of ankle (Primary Dx) Social History Tobacco Use Types Packs/Day Years Used Date Smoking Tobacco: Never Assessed Comments Unknown Sex and Gender Information Value Date Recorded Sex Assigned at Not on file Legal Sex Female 3:08 AM UPSETTER Gender Identity Not on file Sexual Orientation Not on file documented as of this encounter Plan of Treatment Not on file documented as of this encounter Visit Diagnoses Diagnosis Unspecified closed fracture of ankle- Primary documented in this encounter Care Teams Vat Washer Relationship Specialty Start Date End Date Eliseo Leigh MD [address] [address] [place] [phone] PCP - General 04/15/04 11/30/21 documented as of this encounter
--- OUTSIDE RECORDS SUMMARY | 2024-12-08 11:05 | XMS_ITS | Encounter Summary ---
Author Organization [facility] Address [address] [place] [facility] [place] [address] Care Team Providers Care Education Reviewer Name Role Phone Eliseo Leigh MD Primary Care Provider [phone] Encounter Details Date Type Department Care Team (Latest Contact Info) Description 05/06/2006 Outpatient Historical [facility] [place] [address] 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
--- OUTSIDE RECORDS SUMMARY | 2024-12-08 11:05 | XMS_ITS | Encounter Summary ---
Author Organization [facility] Address [address] [place] [address] Care Team Providers Care Post Partum Nurse Name Role Phone Eliseo Leigh MD Primary Care Provider [phone] Encounter Details Date Type Department Care Team (Latest Contact Info) Description 05/06/2006 Outpatient Historical [facility] [place] [address] 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
--- OUTSIDE RECORDS SUMMARY | 2024-12-08 11:05 | XMS_ITS | Encounter Summary ---
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) Social History Tobacco Use Types Packs/Day Years Used Date Smoking Tobacco: Never Assessed Comments Unknown Sex and Gender Information Value Date Recorded Sex Assigned at Not on file 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
--- OUTSIDE RECORDS SUMMARY | 2024-12-08 11:05 | XMS_ITS | Encounter Summary ---
Author Organization [facility] Address [address] [place] [address] Care Team Providers Care Skein Winder Name Role Phone Eliseo Leigh MD Primary Care Provider [phone] Encounter Details Date Type Department Care Team (Latest Contact Info) Description 07/28/2006 Outpatient Historical [facility] [place] [address] [place] [address] Eliseo Leigh MD [address] [place] [address] Osteoarth NOS-L/Leg (Primary Dx); Pain in Joint, Lower Leg Social History Tobacco Use Types Packs/Day Years Used Date Smoking Tobacco: Never Assessed Comments Unknown Sex and Gender Information Value Date Recorded Sex Assigned at Not on file Legal Sex Female 3:08 AM LOADING 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
--- OUTSIDE RECORDS SUMMARY | 2024-12-08 11:05 | XMS_ITS | Encounter Summary ---
Author Organization [facility] Address [address] [place] [address] Care Team Providers Care Baller Tender Name Role Phone Eliseo Leigh MD Primary Care Provider [phone] Encounter Details Date Type Department Care Team (Late st Contact Info) Description 02/16/2007 Outpatient Historical [facility]- 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
--- OUTSIDE RECORDS SUMMARY | 2024-12-08 11:05 | XMS_ITS | Encounter Summary ---
Author Organization [facility] Address [address] [place] [facility] [place] [address] Care Team Providers Care Computer Systems Software Engineer Name Role Phone Eliseo Leigh MD Primary Care Provider [phone] Encounter Details Date Type Department Care Team (Latest Contact Info) Description 11/10/1998 Outpatient Historical [facility]- [facility] [place] [address] [place] [address] Mckay Evangelista MD NO ADDRESS ON FILE Actinic keratosis (Primary Dx); Dermatophytosis of nail; Other seborrheic keratosis Social History Tobacco Use Types Packs/Day Years Used Date Smoking Tobacco: Never Assessed Comments Unknown Sex and Gender Information Value Date Recorded Sex Assigned at Not on file 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
--- OUTSIDE RECORDS SUMMARY | 2024-12-08 11:05 | XMS_ITS | Encounter Summary ---
Author Organization [facility] Address [address] [place] [address] Care Team Providers Care Death Surveys Coder Name Role Phone Eliseo Leigh MD Primary Care Provider Encounter Details Date Type Department Care Team (Latest Contact Info) Description 03/27/1999 Outpatient [facility] [address] [place] [address] Allan Aquino MD [address] [facility] [address] [place] [address] Pain in limb (Primary Dx) Social History Tobacco Use Types Packs/Day Years Used Date Smoking Tobacco: Never Assessed Comments Unknown Sex and Gender Information Value Date Recorded Sex Assigned at Not on file Legal Sex Female 3:08 AM POLYMERIZATION OVEN TENDER Gender Identity Not on file Sexual Orientation Not on file documented as of this encounter Plan of Treatment Not on file documented as of this encounter Visit Diagnoses Diagnosis Pain in limb- Primary Pain in soft tissues of limb documented in this encounter Care Teams Death Surveys Coder Relationship Specialty Start Date End Date Eliseo Leigh MD [address] [facility] [address] [place] [address] PCP - General 3/9/05 10/24/22 documented as of this encounter
--- OUTSIDE RECORDS SUMMARY | 2024-12-08 11:05 | XMS_ITS | Encounter Summary ---
Author Organization [facility] Address [address] [place] [address] Care Team Providers Care Sharepoint Architect Name Role Phone Eliseo Leigh MD Primary Care Provider [phone] Encounter Details Date Type Department Care Team (Latest Contact Info) Description 04/06/2006 Outpatient Historical [facility] [place] [place] [address] Eliseo Leigh MD [address] [place] [address] Plantar Fibromatosis (Primary Dx); Unspecified Essential Hypertension; Fluid Overload; Other and Unspecified Hyperlipidemia Social History Tobacco Use Types Packs/Day Years Used Date Smoking Tobacco: Never Assessed Comments Unknown Sex and Gender Information Value Date Recorded Sex Assigned at Not on file 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
--- OUTSIDE RECORDS SUMMARY | 2024-12-08 11:05 | XMS_ITS | Encounter Summary ---
Author Organization [facility] Address [address] [place] [address] Care Team Providers Care Manager Database Name Role Phone Eliseo Leigh MD Primary Care Provider [phone] Encounter Details Date Type Department Care Team (Late st Contact Info) Description 02/16/2007 Outpatient Historical [facility] [place] [place] [address] Eliseo Leigh MD [address] [place] [address] Social History Tobacco Use Types Packs/Day Years Used Date Smoking Tobacco: Never Assessed Comments No Sex and Gender Information Value Date Recorded Sex Assigned at Not on file Legal Sex Female 3:08 AM BIZTALK SOFTWARE DEVELOPER Gender Identity Not on file Sexual Orientation Not on file documented as of this encounter Plan of Treatment Not on file documented as of this encounter Visit Diagnoses Not on filedocumented in this encounter Care Teams Manager Database Relationship Specialty Start Date End Date Eliseo Leigh MD [address] [place] [address] PCP - General 04/15/04 11/30/21 documented as of this encounter
--- OUTSIDE RECORDS SUMMARY | 2024-12-08 11:05 | XMS_ITS | Encounter Summary ---
Author Organization [facility] Address [address] [facility] [place] [address] Care Team Providers Care Hammer Repairer Name Role Phone Eliseo Leigh MD Primary Care Provider [phone] Encounter Details Date Type Department Care Team (Latest Contact Info) Description 04/24/1997 Outpatient Historical [facility] Dermatology- [facility] [place] [address] [place] [address] Mckay Evangelista MD NO ADDRESS ON FILE Malig beverly skin arm (Primary Dx); Other seborrheic keratosis; Dermatophytosis of foot Social History Tobacco Use Types Packs/Day Years Used Date Smoking Tobacco: Never Assessed Comments Unknown Sex and Gender Information Value Date Recorded Sex Assigned at Not on file Legal Sex Female 3:08 AM RN FLIGHT Gender Identity Not on file Sexual Orientation Not on file documented as of this encounter Plan of Treatment Not on file documented as of this encounter Visit Diagnoses Diagnosis Malig beverly skin arm- Primary 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
--- OUTSIDE RECORDS SUMMARY | 2024-12-08 11:05 | XMS_ITS | Encounter Summary ---
Author Organization [facility] Address [address] [place] [address] Care Team Providers Care Notching Machine Operator Name Role Phone Eliseo Leigh MD Primary Care Provider [phone] Encounter Details Date Type Department Care Team (Late st Contact Info) Description 05/01/2007 Outpatient Historical [facility] [place] [address] 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
--- OUTSIDE RECORDS SUMMARY | 2024-12-08 11:05 | XMS_ITS | Encounter Summary ---
Author Organization [facility] Address [address] [place] [address] Care Team Providers Care Human Factors Advisor Lead Name Role Phone Eliseo Leigh MD Primary Care Provider [phone] Encounter Details Date Type Department Care Team (Latest Contact Info) Description 08/03/2006 Outpatient Historical [facility] Cardiology Ancillary Services[facility] [address] [place] [address] Yovani Varela MD NO ADDRESS ON FILE Shortness of Breath (Primary Dx); Unspecified Chest Pain Social History Tobacco Use Types Packs/Day Years Used Date Smoking Tobacco: Never Assessed Comments Unknown Sex and Gender Information Value Date Recorded Sex Assigned at Not on file 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
--- OUTSIDE RECORDS SUMMARY | 2024-12-08 11:05 | XMS_ITS | Encounter Summary ---
Author Organization [facility] Address [address] [place] [address] Care Team Providers Care Preschool Assistant Director Name Role Phone Eliseo [place] MD Primary Care Provider [phone] Encounter Details Date Type Department Care Team (Late st Contact Info) Description 02/23/2007 Outpatient Historical [facility] Orthopedics- 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
--- OUTSIDE RECORDS SUMMARY | 2024-12-08 11:05 | XMS_ITS | Encounter Summary ---
Author Organization [facility] Address [address] [place] [address] Care Team Providers Care Surgical Supply Assistant Name Role Phone Eliseo Leigh MD Primary Care Provider [phone] Encounter Details Date Type Department Care Team (Late st Contact Info) Description 02/02/2007 Outpatient Historical [facility] Orthopedics- 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
--- OUTSIDE RECORDS SUMMARY | 2024-12-08 11:05 | XMS_ITS | Encounter Summary ---
Author Organization [facility] Address [address] [place] [address] Care Team Providers Care Systems Consultant Name Role Phone Eliseo [place] MD Primary Care Provider Encounter Details Date Type Department Care Team (Latest Contact Info) Description 09/08/2006 Outpatient Historical [facility] O[facility]-[place] [address] [place] [address] Alaina Tony MD [address] [place] [address] Uterovaginal Prolapse, Unspecified (Primary Dx) Social History Tobacco Use Types Packs/Day Years Used Date Smoking Tobacco: Never Assessed Comments Unknown Sex and Gender Information Value Date Recorded Sex Assigned at Not on file 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
--- OUTSIDE RECORDS SUMMARY | 2024-12-08 11:05 | XMS_ITS | Encounter Summary ---
Author Organization [facility] Address [address] [place] [address] Care Team Providers Care Territory Sales Professional Name Role Phone Eliseo Leigh MD Primary Care Provider [phone] Encounter Details Date Type Department Care Team (Latest Contact Info) Description 01/18/2006 Outpatient Historical [facility] ([facility] Echocardiography - [place] [address] [place] [id number] X358 Taran Porter MD NO ADDRESS ON FILE Aortic Valve Disorder (Primary Dx); Undiagnosed Cardiac Murmurs Social History Tobacco Use Types Packs/Day Years Used Date Smoking Tobacco: Never Assessed Comments Unknown Sex and Gender Information Value Date Recorded Sex Assigned at Not on file Legal Sex Female 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
--- OUTSIDE RECORDS SUMMARY | 2024-12-08 11:05 | XMS_ITS | Encounter Summary ---
Author Organization [facility] Address [address] [place] [address] Care Team Providers Care Records Management Engineer Name Role Phone Eliseo Leigh MD Primary Care Provider [phone] Reason for Referral * Radiology Services (Routine) - Closed Specialty Diagnoses / Procedures Referred By Contac t Referred To Contact Radiology Diagnoses Breast cancer screening by mammogram Procedures MAMMO SCRN BILAT 3D OLEG W OR WO CAD CHG SCREENING MAMMOGRAPHY BI 2-VIEW BREAST INC CAD CHG SCREENING DIGITAL BREAST TOMOSYNTHESIS BI Eliseo Leigh MD [address] [facility] [address] [place] [address] Phone: tel: fax: [facility] [address] [facility] [address] [place] [address] Phone: tel: fax: Referral ID Status Reason Start Date Expiration Date Visits Re quested Visits Authorized [id number] Closed 03/18/2020 04/18/2021 1 1 ROFIT DIRECTOR Encounter Details Date Type Department Care Team (Latest Contact Info) Description 03/18/2020 Ancillary Orders [facility] Pre-Registration [place] CALL TO MAKE APPOINTMENT ONLY [address] [place] [address] Eliseo Leigh MD [address] [address] Breast cancer screening by mammogram Social History Tobacco Use Types Packs/Day Years Used Date Smoking Tobacco: Never Smokeless Tobacco: Never Alcohol Use Standard Drinks/Week Comments No 0 (1 standard drink = 0.6 oz pur e alcohol) Comments No Sex and Gender Information Value Date Recorded Sex Assigned at Not on file Legal Sex Female 3:08 AM NONPROFIT DIRECTOR Gender Identity Not on file Sexual Orientation [...] COVID-19? No / Unsure 02/26/2020 1:36 PM NONPROFIT DIRECTOR documented as of this encounter Plan of [...] mammogram documented in this encounter Care Teams Records Management Engineer Relationship Specialty Start Date End Date Eliseo Leigh MD [address] [address] PCP - General 04/15/04 11/30/21 documented as of this encounter
--- OUTSIDE RECORDS SUMMARY | 2024-12-08 11:05 | XMS_ITS | Encounter Summary ---
Author Organization [facility] Address [address] [place] [address] Care Team Providers Care Electrician Front Name Role Phone Eliseo Leigh MD Primary Care Provider [phone] Encounter Details Date Type Department Care Team (Late st Contact Info) Description 02/09/2007 Outpatient Historical [facility] Orthopedics- 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
--- OUTSIDE RECORDS SUMMARY | 2024-12-08 11:05 | XMS_ITS | Encounter Summary ---
Author Organization [facility] Address [address] [place] [address] Care Team Providers Care Second Hand Name Role Phone Eliseo Leigh MD Primary Care Provider [phone] Encounter Details Date Type Department Care Team (Late st Contact Info) Description 09/13/2006 Inpatient Historical [facility] IN B[facility] Alaina Tony MD [address] 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
--- OUTSIDE RECORDS SUMMARY | 2024-12-08 11:05 | XMS_ITS | Encounter Summary ---
Author Organization [facility] Address [address] [place] [address] Care Team Providers Care Crew Chief Name Role Phone Eliseo Leigh MD Primary Care Provider [phone] Encounter Details Date Type Department Care Team (Latest Contact Info) Description 09/08/2006 Outpatient Historical [facility] [address] [place] [address] Alaina Tony MD [address] [address] Pre-Operative Cardiovascular Examination (Primary Dx) Social History Tobacco Use Types Packs/Day Years Used Date Smoking Tobacco: Never Assessed Comments Unknown Sex and Gender Information Value Date Recorded Sex Assigned at Not on file Legal Sex Female 3:08 AM ADOPTION COORDINATOR Gender Identity Not on file Sexual [...] Primary documented in this encounter Care Teams Crew Chief Relationship Specialty Start Date End Date Eliseo Leigh MD [address] [address] PCP - General 04/15/04 11/30/21 documented as of this encounter
--- OUTSIDE RECORDS SUMMARY | 2024-12-08 11:05 | XMS_ITS | Encounter Summary ---
Author Organization [facility] Address [address] [place] [address] Care Team Providers Care Milling Machine Operator Name Role Phone Eliseo Leigh MD Primary Care Provider [phone] Encounter Details Date Type Department Care Team (Late st Contact Info) Description 03/02/2007 Outpatient Historical [facility] Orthopedics- 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
--- OUTSIDE RECORDS SUMMARY | 2024-12-08 11:05 | XMS_ITS | Encounter Summary ---
Author Organization [facility] Address [address] [place] [address] Care Team Providers Care Barometers Calibrator Name Role Phone Eliseo Leigh MD Primary Care Provider Encounter Details Date Type Department Care Team (Late st Contact Info) Description 07/14/2006 Outpatient Historical [facility] O[facility]YN-[place] [address] [place] [address] Alaina Tony MD [address] [place] [address] Rectocele (Primary Dx) Social History Tobacco Use Types Packs/Day Years Used Date Smoking Tobacco: Never Assessed Comments Unknown Sex and Gender Information Value Date Recorded Sex Assigned at Not on file 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
--- OUTSIDE RECORDS SUMMARY | 2024-12-08 11:05 | XMS_ITS | Encounter Summary ---
Author Organization [facility] Address [address] [facility] [place] [address] Care Team Providers Care Stave And Bolt Equalizer Name Role Phone Eliseo Leigh MD Primary Care Provider [phone] Encounter Details Date Type Department Care Team (Latest Contact Info) Description 06/24/1998 Outpatient Historical [facility] Tony Pollard MD NO ADDRESS ON FILE Unspecified closed fracture of ankle (Primary Dx) Social History Tobacco Use Types Packs/Day Years Used Date Smoking Tobacco: Never Assessed Comments Unknown Sex and Gender Information Value Date Recorded Sex Assigned at Not on file 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
--- OUTSIDE RECORDS SUMMARY | 2024-12-08 11:05 | XMS_ITS | Encounter Summary ---
Author Organization [facility] Address [address] [place] [address] Care Team Providers Care Retail Cashier Name Role Phone Eliseo Leigh MD Primary Care Provider [phone] Encounter Details Date Type Department Care Team (Latest Contact Info) Description 07/28/2006 Outpatient Historical [facility] [place] [address] [place] [address] Eliseo Leigh MD [address] [place] [address] Routine Medical Exam (Primary Dx); Unspecified Chest Pain; Shortness of Breath Social History Tobacco Use Types Packs/Day Years Used Date Smoking Tobacco: Never Assessed Comments Unknown Sex and Gender Information Value Date Recorded Sex Assigned at Not on file 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
--- OUTSIDE RECORDS SUMMARY | 2024-12-08 11:05 | XMS_ITS | Encounter Summary ---
Author Organization [facility] Address [address] [place] [address] Care Team Providers Care Data Capture Specialist Name Role Phone Eliseo Leigh MD Primary Care Provider [phone] Encounter Details Date Type Department Care Team (Late st Contact Info) Description 11/03/2006 Outpatient Historical [facility] OBGYN-[place] [address] [place] [address] Alaina Tony MD [address] [place] [address] Follow-Up Examination, Following Unspecified Surgery (Primary Dx); Decreased Libido Social History Tobacco Use Types Packs/Day Years Used Date Smoking Tobacco: Never Assessed Comments Unknown Sex and Gender Information Value Date Recorded Sex Assigned at Not on file Legal Sex Female 3:08 AM SOLUTIONS DELIVERY CONSULTANT Gender Identity Not on file Sexual Orientation Not on file documented as of this encounter Plan of Treatment Not on file documented as of this encounter Visit Diagnoses Diagnosis Follow-up examination, following unspecified surgery- Primary Decreased libido documented in this encounter Care Teams Data Capture Specialist Relationship Specialty Start Date End Date Eliseo Leigh MD [address] [place] [address] PCP - General 04/15/04 11/30/21 documented as of this encounter
--- OUTSIDE RECORDS SUMMARY | 2024-12-08 11:05 | XMS_ITS | Encounter Summary ---
Author Organization [facility] Address [address] [address] Care Team Providers Care Authors Motivational Name Role Phone Eliseo Leigh MD Primary Care Provider [phone] Encounter Details Date Type Department Care Team (Latest Contact Info) Description 08/01/1998 Outpatient Historical [facility] Tony Pollard MD NO ADDRESS ON FILE Unspecified closed fracture of ankle (Primary Dx) Social History Tobacco Use Types Packs/Day Years Used Date Smoking Tobacco: Never Assessed Comments Unknown Sex and Gender Information Value Date Recorded Sex Assigned at Not on file 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
--- OUTSIDE RECORDS SUMMARY | 2024-12-08 11:05 | XMS_ITS | Clinical Summary ---
Author Organization [facility] Address [address] 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 Gender Identity Not on file Sexual [...] history exists Medical Devices Implanted Type Area Mold Maker Apprentice Device Identifier Shelf Expiration Date Model / Serial / Lot Log [id number] - Cement - 1 - Simplex W/Tobra 6197-9-001 Implanted:Qty: 1 on 11/16/2010 at [facility] Cement Right: Knee [employer] 05/08/2012 6197-9-0 01 / / [id number] Simplex W/Tobra 6197-9-001 - Sna Implanted:Qty: 2 on 03/01/2011 at [facility] Cement Left: Knee [employer] 09/29/2012 6197-9-0 01 / NA / [id number] Cement Activos W/Judd C10a Implanted:02/2014 by Scott Posadas MD (Quantity not on file) Cement Vertebrae [employer] - SPINAL fka KYPHON 10/07/2016 C10A / / [id number] Description:T12 Kyphoplasty Lens Io Tecnis 1pc 22 [id number] - [id number] Implanted:Qty: 1 on 05/24/2013 by Angel Muse MD at [facility] Left: Eye [employer] 01/23/2017 [id number] / [id number] / Log [id number] - Bard Patches, Pledgets, Jonelle, Fabrics - 1 - [place] Ptfe Thck 1.6mmx2.5x2.5c m [id number] Implanted:Qty: 1 on 12/18/2008 at [facility] Graft CR BARD[employer]IE [employer] 01/07/2013 [id number] / / [id number] Log [id number] - Bard Patches, Pledgets, Jonelle, Fabrics - 2 - [place] Ptfe Thck 1.6mmx2.5x2.5c m [id number] Implanted:Qty: 1 on 12/18/2008 at [facility] Graft CR BARD[employer] 07/08/2013 [id number] / / [id number] Log [id number] - Laurie Total Knee - 1 - Insert Tib Trthln X3 Cs 5531-G-411 Implanted:Qty: 1 on 11/16/2010 at [facility] Knee Right: Knee [employer] 08/08/2015 5531-G-4 11 / / [id number] Log [id number] - Wallace Total Knee - 1 - Comp Fem Trthln Cr Sz4 Rt 5510-F-402 Implanted:Qty: 1 on 11/16/2010 at [facility] Knee Right: Knee [employer] 07/09/2015 5510-F-4 02 / / [id number] Log [id number] - Wallace Total Knee - 1 - Patella Trthln Sym X3 5550-G-339 Implanted:Qty: 1 on 11/16/2010 at [facility] Knee Right: Knee [employer]URIE- HOWMED[employer] INT INC 08/08/2015 5550-G-3 39 / / [id number] Log [id number] - Laurie Total Knee - 1 - Comp Tib Triathlon Cmnt 5520-B-400 Implanted:Qty: 1 on 11/16/2010 at [facility] Knee Right: Knee [employer] 09/08/2015 5520-B-4 00 / / FHUM Comp Tib Triathlon Cmnt 5520-B-400 - Sna Implanted:Qty: 1 on 03/01/2011 at [facility] Knee Left: Knee [employer] 01/30/2016 5520-B-4 00 / NA / GMON Comp Fem Trthln Cr Sz5 Lt 5510-F-501 - Sna Implanted:Qty: 1 on 03/01/2011 at [facility] Knee Left: Knee [employer] 01/29/2015 5510-F-5 01 / NA / SYRCK Patella Trthln Sym Poly 5550-L-339 - Sna Implanted:Qty: 1 on 03/01/2011 at [facility] Knee Left: Knee [employer]URIE- [employer] 10/31/2015 5550-L-3 39 / NA / [id number] Ins Tib Triathlon Sz4 11mm 5531-P-411 - Sna Implanted:Qty: 1 on 03/01/2011 at [facility] Knee Left: Knee [employer] 09/30/2015 5531-P-4 11 / NA / [id number] Pacemaker Teresa Xt Surescan [id number] Pacemaker [employer]- CRM - BULK BUY [id number] 11/21/2019 W1DR01 / [id number] 3H / Pin Headless Fltd 02/14 7650-2038a Implanted:Qty: 1 on 11/16/2010 at [facility] Pin [employer] 7650-203 8A / / Description:moved down from [facility] list- Implant Type-TS [id number] - [id number] Implanted:Qty: 1 on 12/18/2008 at [facility] Heart 05/08/2013 LXA25 / [id number] / Description:[employer] Mitro flow Aortic Heart Valve (size 25mm) Procedures Procedure Name Priority Date/Time Associated Diagnosis Comments XR DEXA BONE DENSITY AXIAL 1 OR MORE SITES Routine 09/02/2014 1:04 PM CDT Menopausal disorder ENDOSCOPY, COLON, SCREENING Routine 03/15/2012 9:17 AM MOLDING MACHINE TENDER Screening for colon cancer from Last 3 [...] Insurance [address] [place] [address] MEDICARE PART A AND B [facility] [address] [place] [id number] RX [employer] RX Member Subscriber Plan / Payer (Ef fective 2015-Present) Name:Jacklyn Schultz Relation to Subscriber:Self Name:Jacklyn Schultz Payer ID:Not on file Group ID:[id number] Type:RX Medicare Part D Address: [place] [facility] DATA Medicare Part B Advance Directives For more information, please contact: [phone] Documents on File Type Date Recorded 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
[2024-12-08 11:44] LABS: Hematocrit 36.1 % (36-47); Hemoglobin 11.80 g/dL (11.27-16.99); Mean Corpuscular HGB Conc 32.7 g/dL (30-55); Mean Corpuscular Hemoglobin 28.4 pg (27-33); Mean Corpuscular Volume 86.8 fl (85-98); Nucleated Red Blood Cells % 0 %; Platelet Count 82 10^3/cmm (157-399); Red Blood Count 4.16 10^6/uL (3.85-5.65); White Blood Count 7.60 10^3/uL (3.29-11.43)
--- NOTE | 2024-12-08 11:54 | ED_ITS ---
HPI - Abdominal Pain 2 General: Chief Complaint: Abdominal Pain Stated Complaint: abd pain Time Seen by Provider: 12/08/24 11:10 History of Present Illness: 84-year-old female presents emergency ro om with complaints of right lower quadrant abdominal pain and pain into her back she refers to the SI joint area. She has had this for approximately a week she was seen on the [address] emergency room CT of the abdomen showed some foraminal stenosis in the lumbar spine but otherwise there was no other intra-abdominal pathology. Lab work done at that time was normal no significant abnormalities. She denies any dysuria urgency or frequency no hematuria no vomiting or diarrhea. She has previously had a cholecystectomy and hysterectomy she still has appendix in place. Associated Symptoms: Denies chills, dysuria and fever(s) Related Data Home Medications ?Medication ?Instructions ?Recorded ?Confirmed amlodipine 5 mg tablet 5 mg PO QPM 06/09/24 5 cyanocobalamin (vitamin B-12) 1,000 mcg IM Q30D 12/13/24 1,000 mcg/mL injection solution famotidine 40 mg tablet 40 mg PO DAILY PRN upset sto mach 06/09/24 12/13/24 isosorbide mononitrate 30 mg 30 mg PO QAM 06/09/2408/01 tablet,extended release 24 hr levothyroxine 125 mcg tablet 125 mcg PO QAM 06/09/24 1 02/13/24 propafenone 150 mg tablet 150 mg PO Q8H 06/09/2412/13 sertraline 25 mg tablet 25 mg PO DAILY 06/09/2408/01 Previous Rx's ?Medication ?Instructions ?Recorded prednisone 20 mg tablet See Rx Instructions PO .COMP CARLIN 11/26/24 PRN joint pain flare #30 tabs methylprednisolone 4 mg tablets in See Rx Instructions PO .COMPLEX 12/08/24 a dose pack (Medrol (Miles)) #21 ea tizanidine 4 mg tablet 2 mg (1/2 x 4 mg) PO Q6H PRN 12/08/24 muscle spasticity #20 tabs leflunomide 20 mg tablet 20 mg PO DAILY #90 tabs 08/01 pilocarpine HCl 5 mg tablet 5 mg PO TID #90 tabs 12/13 Allergies Allergy/AdvReac Type Severity Reaction Status Date / Time LAURENT Inhibitors Allergy Unknown Unkown Verified 12/13/24 15:16 ezetimibe Allergy Unknown Unknown Verified 12/13/24 15:16 codeine Allergy ADR-Headach Verified 12/13/24 15:16 e COVID-19 vaccine, Allergy hives Verified 12/13/24 15:16 recombinant (Nova (From Novavax COVID19 Vac,Adj(Unapp)) Cmiywdw-CAF-JcC Reductase Allergy ADV-Weaknes Verified 12/13/24 15:16 Inhibitor (Fqsente-Wkp-Nob s Reductase Inhibitor) vaccine adjuvant system, Allergy hives Verified 12/13/24 15:16 ISCOM-Matrix (From Novavax COVID19 Vac,Adj(Unapp)) Review of Systems 2 Const: Denies: fever(s) or chills Card: Denies: chest pain Resp: Denies: dyspnea GI: Denies: abdominal pain : Denies: dysuria, urinary frequency or urinary urgency Musc: Denies: neck pain or back pain Skin/Breast: Denies: rash PFSH ED 2 PFSH: Medical History (Updated 12/16/24 @ 00:00 by BARBY Chavez) Chronic pruritus Immunization counseling High risk medication use Osteoarthritis, generalized Polyarthralgia Osteoporosis Traumatic compression fracture of eleventh thoracic vertebra History of CVA (cerebrovascular accident) GERD (gastroesophageal reflux disease) Hypothyroidism Hypertension Pacemaker Surgical History History of hip replacement rt Aortic valve replaced H/O eye surgery Hx of cataract surgery Hx of tonsillectomy S/P cholecystectomy History of open heart surgery H/O: hysterectomy H/O vaginal surgery History of knee replacement History of ankle surgery Family History Mother Stroke Social History Smoking and tobacco/nicotine status: never used tobacco/nicotine Second hand smoke exposure: No Alcohol intake: current Alcohol intake frequency: holidays/special occasions only Substance/Drug Use: never Female Reproductive History: Para: 2 Spontaneous abortions: No Physical Exam 2 Const: COMMON NORMALS: no acute distress GENERAL APPEARANCE: cooperative and comfortable ORIENTATION/CONSCIOUSNESS: Yes awake, Yes oriented to person, Yes oriented to place and Yes oriented to time HENMT: COMMON NORMALS: normocephalic, atraumatic and hearing grossly normal bilaterally HEAD & SCALP: normocephalic and atraumatic Resp: COMMON NORMALS: normal respiratory effort, No retractions, No use of accessory muscles and clear to auscultation bilaterally AUSCULTATION: clear to auscultation bilaterally Cardio: COMMON NORMALS: regular rate, regular rhythm and No murmurs present (Cardio) RATE: regular rate RHYTHM: regular rhythm GI: COMMON NORMALS: Soft to palpation and No hepatosplenomegaly present A USCULTATION: Yes normoactive bowel sounds PALPATION: Yes Soft to palpation, No Tenderness to palpation present (GI), No Guarding due to palpation present (GI) and Yes No hepatosplenomegaly present Extremity: COMMON NORMALS: normal to inspection, capillary refill normal, no clubbing, cyanosis or edema, no calf tenderness and no pedal edema Neuro: SENSORIUM/ORIENTATION: Yes oriented to person, Yes oriented to place and Yes oriented to time Skin: COMMON NORMALS: no rashes or lesions noted GENERAL SKIN EXAM: no rashes or lesions noted Course 2 Vital Signs: Vital signs: Vital Signs Temperature 98.0 F 12/08/24 11:05 Pulse Rate 75 12/08/24 13:32 Respiratory Rate 14 12/08/24 13:32 Blood Pressure 164/102 12/08/24 13:32 Pulse Oximetry 97 12/08/24 13:32 Oxygen Delivery Me thod Room Air 12/08/24 11:05 MDM - Abdominal Pain Medical Decision Making Her pain seems more in the region of the SI joint radiating to the lateral portion of the buttock and down to the upper thigh. She has no red flag symptoms no recent trauma no fecal incontinence urinary retention. Will discharge patient with pain medications and have her follow-up with primary care. Labs reviewed as found in the chart. She had a CT done recently did not show any acute abnormalities no significant changes and normal white count did not repeat CT. Medical Records I reviewed the patient's medical records. Lab Data I reviewed the patient's lab results. 12/08/24 11:34 12/08/24 11:34 Labs/Radiology: Laboratory Results WBC 7.60 10^3/uL (3.29-11.43) 12/08/24 11:34 RBC 4.16 10^6/uL (3.85-5.65) 12/08/24 11:34 Hgb 11.80 g/dL (11.27-16.99) 12/08/24 11:34 Hct 36.1 % (36-47) 12/08/24 11:34 MCV 86.8 fl (85-98) 12/08/24 11:34 MCH 28.4 pg (27-33) 12/08/24 11:34 MCHC 32.7 g/dL (30-55) 12/08/24 11:34 RDW 17.3 % (12.1-15.1) H 12/08/24 11:34 Plt Count 82 10^3/cmm (157-399) L 12/08/24 11:34 MPV 10.5 fL (7.4-10.4) H 12/08/24 11:34 Neut % (Auto) 71.0 % 12/08/24 11:34 Lymph % (Auto) 18.2 % 12/08/24 11:34 [place] % (Auto) 8.8 % 12/08/24 11:34 Eos % (Auto) 1.4 % 12/08/24 11:34 Baso % (Auto) 0.1 % 12/08/24 11:34 Neut # (Auto) 5.39 10^3/uL (1.8-7.7) 12/08/24 11:34 Lymph # (Auto) 1.4 10^3/uL (0.8-4.8) 12/08/24 11:34 [place] # (Auto) 0.7 10^3/uL (0.2-0.9) 12/08/24 11:34 Eos # (Auto) 0.1 10^3/uL (0.0-0.8) 12/08/24 11:34 Baso # (Auto) 0.0 10^3/uL (0.0-0.1) 12/08/24 11:34 Nucleated RBC % (auto) 0 % 12/08/24 11:34 Nucleated RBCs # 0.0 /100WBC 12/08/24 11:34 Sodium 135 mmol/L (136-145) L 12/08/24 11:34 Potassium 3.7 mmol/L (3.5-5.1) 12/08/24 11:34 Chloride 101 mmol/L (98-107) 12/08/24 11:34 Carbon Dioxide 27 mmol/L (22-29) 12/08/24 11:34 Anion Gap 10.7 (5-19) 12/08/24 11:34 BUN 16 mg/dL (8-23) 12/08/24 11:34 Creatinine 1.2 mg/dL (0.5-0.9) H 12/08/24 11:34 GFR Calculation Not Reportable 12/08/24 11:34 Glucose 117 mg/dL (65-115) H 12/08/24 11:34 Calculated Osmolality 282 mOsm/kg (285-295) L 12/08/24 11:34 Calcium 7.7 mg/dL (8.5-10.5) L 12/08/24 11:34 Total Bilirubin 0.7 mg/dL (0.15-1.2) 12/08/24 11:34 AST 19 U/L (0-32) 12/08/24 11:34 ALT 14 U/L (0-33) 12/08/24 11:34 Alkaline Phosphatase 87 U/L (35-105) 12/08/24 11:34 Total Protein 5.1 g/dL (6.6-8.7) L 12/08/24 11:34 Albumin 3.2 g/dL (3.5-5.2) L 12/08/24 11:34 Globulin 1.9 g/dL (1.3-4.6) 12/08/24 11:34 Lipase 72 U/L (13-60) H 12/08/24 11:34 Urine Color Yellow (Yellow) 12/08/24 11:48 Urine Appearance Clear (CLEAR) 12/08/24 11:48 Urine pH 7.0 (5-7) 12/08/24 11:48 Ur Specific Walker 1.014 (1.005-1.030) 12/08/24 11:48 Urine Protein Negative (Negative) 12/08/24 11:48 Urine Glucose (UA) Negative (Normal) 12/08/24 11:48 Urine Ketones Negative (Negative) 12/08/24 11:48 Urine Blood Negative (Negative) 12/08/24 11:48 Urine Nitrate Negative (Negative) 12/08/24 11:48 Urine Bilirubin Negative (Negative) 12/08/24 11:48 Urine Urobilinogen 0.2 mg/dL (Negative) 12/08/24 11:48 Ur Leukocyte Esterase Negative (Negative) 12/08/24 11:48 Urine RBC 0-2 /hpf (0-2) 12/08/24 11:48 Urine WBC 0-5 /hpf (0-5) 12/08/24 11:48 Ur Squamous Epith Cells 0-5 /hpf (0-5) 12/08/24 11:48 Amorphous Sediment Not Reportable 12/08/24 11:48 Urine Bacteria None seen /hpf (NONE) 12/08/24 11:48 Hyaline Casts 0.40 /lpf 12/08/24 11:48 All radiology interpretation(s) finalized by discharge Discharge Plan Discharge Patient Disposition: Home Clinical Impression: Lumbar radiculopathy Condition: Stable Prescriptions: New tizanidine 4 mg tablet 2 mg PO Q6H PRN (Reason: muscle spasticity) Qty: 20 0RF Rx Instructions: do not exceed 3 doses per 24 hrs methylprednisolone [Medrol (Miles)] 4 mg tablets,dose pack See Rx Instructions .ROUTE .COMPLEX Qty: 21 0RF Rx Instructions: orally per package directions No Action pilocarpine HCl 5 mg tablet 5 mg PO TID Qty: 90 3RF leflunomide 20 mg tablet 20 mg PO DAILY Qty: 90 1RF prednisone 20 mg tablet See Rx Instructions PO .COMPLEX PRN (Reason: joint pain flare) Qty: 30 1RF Rx Instructions: Take 2 tablets by mouth daily for 7 days as needed for arthritis flare. propafenone 150 mg tablet 150 mg PO Q8H famotidine 40 mg tablet 40 mg PO DAILY PRN (Reason: upset stomach) isosorbide mononitrate 30 mg tablet extended release 24 hr 30 mg PO QAM amlodipine 5 mg tablet 5 mg PO QPM cyanocobalamin (vitamin B-12) 1,000 mcg/mL solution 1,000 mcg IM Q30D levothyroxine 125 mcg tablet 125 mcg PO QAM sertraline 25 mg tablet 25 mg PO DAILY Discharge Orders: Discharge ED (Routine); Ordered 12/08/24 Ordered By: Cesario Castellanos Referrals: Eliseo Leigh MD [Primary Care Provider, Family Practice] Discharge Diet: Usual diet Discharge Activity: Increase activity as tolerated Patient Instructions: Abdominal Pain (ED), Opioid Safety, Pain Management, Patient Portal & Anne-Marie Instructions Activity Restrictions/Additional Instructions: [facility]. It is very important that you follow up as instructed or that you return to the Emergency Department should you have concerns or if your condition changes or worsens in any way. Emergency department visits are focused on emergent conditions, in some cases you may require further evaluation on an outpatient basis. You were seen in the emergency room complaints of right sided hip pain/abdominal pain. On exam there does not appear to be any involvement of the abdomen. Her white count was normal urine did not show any signs of infection. We reviewed your previous labs and CT from the prior visit CT showed some foraminal stenosis in the lumbar spine on the right side. And we examined your hip we did not elicit any pain. Suspect based on your where you referred the pain to the exam findings and previous CT this may be due to lumbar nerve impingement will have you use steroid taper tizanidine as needed and follow-up with your primary care doctor. (Please note that included in your discharge packet is information concerning opioid safety and pain management. This information is given to all patients were discharged from the ER regardless of their discharge diagnosis or the medicines they usually take or are prescribed.) Print Language: Kittitian Coding Level of Care Code ED Supervisor Assembly Stock for Arash Camara
[2024-12-08 11:58] LABS: Glucose Urine UA Negative (Normal); Nitrate Urine Negative (Negative); Specific Gravity, Urine 1.014 (1.005-1.030)
[2024-12-08 12:03] LABS: Add Urine Microscopic? YES
[2024-12-08 12:11] LABS: Alanine Aminotransferase 14 U/L (0-33); Albumin Level 3.2 g/dL (3.5-5.2); Alkaline Phosphatase 87 U/L (35-105); Anion Gap 10.7 (5-19); Aspartate Amino Transferase 19 U/L (0-32); Blood Urea Nitrogen 16 mg/dL (8-23); Calcium 7.7 mg/dL (8.5-10.5); Carbon Dioxide 27 mmol/L (22-29); Chloride 101 mmol/L (98-107); Creatinine Clr Calc Pharmacy 30.4481; Globulin 1.9 g/dL (1.3-4.6); Glucose 117 mg/dL (65-115); Lipase 72 U/L (13-60); Osmolality Calculated 282 mOsm/kg (285-295); Potassium 3.7 mmol/L (3.5-5.1); Sodium 135 mmol/L (136-145); Total Protein 5.1 g/dL (6.6-8.7)
[2024-12-08 12:35] VITALS: RESP 15
[2024-12-08] MEDS: morphine 4 mg/mL SDV 1 mL IVP (12:35)
[2024-12-08 13:32] VITALS: BP 164/102; PULSE 75; RESP 14; O2SAT 97
== END 2024-12-08 13:35 | disposition home or self-care (01) ==
PROVIDERS: Emergency Provider Family Medicine; PCP Family Medicine
DX: M54.16 Radiculopathy, lumbar region (principal); Z95.0 Presence of cardiac pacemaker; Z86.73 Personal history of transient ischemic attack (TIA), and cerebral infarction without residual deficits; I10 Essential (primary) hypertension
CPT/HCPCS: 80053; 81001; 83690; 85025; 96374; 99284; J2270

== ENCOUNTER 2025-01-25 10:52 | Inpatient (IN) | payer MEDICARE, SELFPAY ==
[2025-01-25] VITALS (41 sets, daily range): BP systolic 115–163; BP diastolic 66–96; PULSE 89–122; RESP 16–42; TEMP 36.5–37.5; O2SAT 72–97; BMI 23.5
--- NOTE | 2025-01-25 10:58 | XR_ITS ---
WS: [id number] Portable AP upright chest, 01/25/2025 Clinical Data: dyspnea/cough Comparison: Two-view chest, 07/26/2024 Findings: There is a patchy opacity involving the right lung with more opacity in the central and lower portions in the upper lobe. There is a patchy opacity overlying the left diaphragm which is chronic. The heart is enlarged. There is a hiatal hernia. The pulmonary vascularity is not increased. There is an artificial cardiac valve with mediastinal sutures. There is a 2-lead cardiac pacemaker with the generator in the left lateral chest and axilla. No pneumothorax is present. Monitor leads are on the chest wall. Vertebroplasty cement is in the lower thoracic vertebral bodies. XR/XR chest 1V portable [id number] Impression: 1. Patchy opacity in periphery of right lung which may represent acute pneumoni a. 2. Cardiomegaly, atherosclerosis and cardiac pacemaker.
--- NOTE | 2025-01-25 10:59 | ECG_ITS ---
[facility] Test Date: 2025-01-25 Pat Name: Jacklyn Schultz Department: Room: Gender: Female Venetian Blind Machine Operator: : 1940 Requested By: Cesario Jean-Baptiste Order Number: [id number] Daphney MD: EVELYN COVARRUBIAS Measurements Intervals [place] Rate: 119 P: -28 NH: 116 QRS: -30 QRSD: 129 T: 12 QT: 338 QTc: 476 Interpretive Statements SINUS TACHYCARDIA WITH SHORT NH INTERVAL WITH OCCASIONAL SUPRAVENTRICULAR PREMATURE COMPLEXES RIGHT BUNDLE BRANCH BLOCK [120+ ms QRS DURATION, UPRIGHT V1, 40+ ms S IN I/aVL/V4/V5/V6] MINIMAL VOLTAGE CRITERIA FOR LVH, CONSIDER NORMAL VARIANT [MEETS CRITERIA IN ONE OF: R(aVL), S(V1), R(V5), R(V5/V6)+S(V1)] POSSIBLE SEPTAL MYOCARDIAL INFARCTION , OF INDETERMINATE AGE [30 ms Q WAVE IN V1/V2] Compared to ECG 10/01/2021 18:05:33 Short NH interval now present Myocardial infarct finding now present Atrial-paced complex(es) or rhythm no longer present Electronically Signed On 01-29-2025 12:11:52 SUPERVISOR LEAD REFINERY by EVELYN COVARRUBIAS [email or web address]
--- OUTSIDE RECORDS SUMMARY | 2025-01-25 11:08 | XMS_ITS | Encounter Summary ---
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
--- OUTSIDE RECORDS SUMMARY | 2025-01-25 11:08 | XMS_ITS | Encounter Summary ---
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
--- OUTSIDE RECORDS SUMMARY | 2025-01-25 11:08 | XMS_ITS | Encounter Summary ---
Author Organization [facility] Address [address] [place] [address] Care Team Providers Care Plate Furnace Operator Name Role Phone Eliseo Leigh MD Primary Care Provider [phone] Encounter Details Date Type Department Care Team (Late st Contact Info) Description 06/30/2007 Outpatient Historical [facility] GómezLyndon Melara PA [address] [place] [address] Social History Tobacco Use Types Packs/Day Years Used Date Smoking Tobacco: Never Assessed Comments No Sex and Gender Information Value Date Recorded Sex Assigned at Not on file Legal Sex Female 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
--- OUTSIDE RECORDS SUMMARY | 2025-01-25 11:08 | XMS_ITS | Encounter Summary ---
Author Organization [facility] Address [address] [place] [address] Care Team Providers Care Pest Locator Name Role Phone Eliseo Leigh MD Primary Care Provider [phone] Encounter Details Date Type Department Care Team (Late st Contact Info) Description 06/02/2007 Outpatient Historical [facility] [address] [place] [address] Mazin Newton MD NO ADDRESS ON FILE Social History Tobacco Use Types Packs/Day Years Used Date Smoking Tobacco: Never Assessed Comments No Sex and Gender Information Value Date Recorded Sex Assigned at Not on file Legal Sex Female 3:08 AM ETCHER HAND Gender Identity Not on file Sexual Orientation Not on file documented as of this encounter Plan of Treatment Not on file documented as of this encounter Visit Diagnoses Not on filedocumented in this encounter Care Teams Pest Locator Relationship Specialty Start Date End Date Eliseo Leigh MD [address] [phone] PCP - General 04/15/04 11/30/21 documented as of this encounter
--- OUTSIDE RECORDS SUMMARY | 2025-01-25 11:08 | XMS_ITS | Encounter Summary ---
Author Organization [facility] Address [address] [place] [address] Care Team Providers Care Boot And Shoe Repairman Name Role Phone Eliseo Liegh MD Primary Care Provider [phone] Encounter Details Date Type Department Care Team (Latest Contact Info) Description 07/25/2007 Outpatient [facility] [address] [place] [address] [address] Mazin Newton MD NO ADDRESS ON FILE Spinal Stenosis of Lumbar Region; Congenital Spondylolisthesis; Unspecified Arthropathy, Site Unspecified; Unspecified Essential Hypertension Social History Tobacco Use Types Packs/Day Years Used Date Smoking Tobacco: Never Assessed Comments No Sex and Gender Information Value Date Recorded Sex Assigned at Not on file Legal Sex Female 3:08 AM 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
--- OUTSIDE RECORDS SUMMARY | 2025-01-25 11:08 | XMS_ITS | Encounter Summary ---
Author Organization [facility] Address [address] [place] [address] Care Team Providers Care Parts Facilitator Name Role Phone Eliseo Leigh MD Primary Care Provider [phone] Encounter Details Date Type Department Care Team (Latest Contact Info) Description 06/27/2007 Outpatient Historical [facility] [place] [address] [facility] [address] [place] [address] Lyndon Magaña, PA [address] [place] [address] Pain in Joint, Pelvic Region and Thigh; Congenital Spondylolisthesis; Unspecified Disorder of Thyroid; Unspecified Essential Hypertension; Headache; Personal History of Allergy to Analgesic Agent Social History Tobacco Use Types Packs/Day Years Used Date Smoking Tobacco: Never Assessed Comments No Sex and Gender Information Value Date Recorded Sex Assigned at Not on file Legal Sex Female 3:08 AM SHAKER FLATWORK Gender Identity Not on file Sexual Orientation [...] agent documented in this encounter Care Teams Parts Facilitator Relationship Specialty Start Date End Date Eliseo Leigh MD [address] [address] PCP - General 04/15/04 11/30/21 documented as of this encounter
--- OUTSIDE RECORDS SUMMARY | 2025-01-25 11:08 | XMS_ITS | Encounter Summary ---
Author Organization [facility] Address [address] [place] [address] Care Team Providers Care Surgical Instrument Maker Name Role Phone Eliseo Leigh MD Primary Care Provider [phone] Encounter Details Date Type Department Care Team (Late st Contact Info) Description 07/28/2007 Outpatient Historical [facility] [address] [place] [address] Mazin Newton MD NO ADDRESS ON FILE Social History Tobacco Use Types Packs/Day Years Used Date Smoking Tobacco: Never Assessed Comments No Sex and Gender Information Value Date Recorded Sex Assigned at Not on file Legal Sex Female 3:08 AM YARDAGE ESTIMATOR Gender Identity Not on file Sexual Orientation Not on file documented as of this encounter Plan of Treatment Not on file documented as of this encounter Visit Diagnoses Not on filedocumented in this encounter Care Teams Surgical Instrument Maker Relationship Specialty Start Date End Date Eliseo Leigh MD [address] [phone] PCP - General 04/15/04 11/30/21 documented as of this encounter
--- OUTSIDE RECORDS SUMMARY | 2025-01-25 11:09 | XMS_ITS | Encounter Summary ---
Author Organization [facility] Address [address] [place] [address] Care Team Providers Care Milled Lumber Grader Name Role Phone Eliseo Leigh MD Primary Care Provider [phone] Reason for Referral * Outpatient Services (Routine) - Closed Specialty Diagnoses / Procedures Referred By Michael t Referred To Contact Diagnoses Other screening mammogram Procedures MAMMO DIGITAL SCREEN BILAT Eliseo Leigh MD [address] [address] Phone: tel: fax: Referral ID Status Reason Start Date Expiration Date Visits Re quested Visits Authorized [id number] Closed 05/29/2010 11/25/2010 1 1 Encounter Details Date Type Department Care Team (Latest Contact Info) Description 05/29/2010 Ancillary Orders [facility] Pre-Registration [place] CALL TO MAKE APPOINTMENT ONLY [address] [place] [address] Eliseo Leigh MD [address] [address] Other screening mammogram Social History Tobacco Use Types Packs/Day Years Used Date Smoking Tobacco: Never Alcohol Use Standard Drinks/Week Comments No 0 (1 standard drink = 0.6 oz pur e alcohol) Comments No Sex and Gender Information Value Date Recorded Sex Assigned at Not on file Legal Sex Female 3:08 AM CONSTRUCTION SUPERINTENDENT Gender Identity Not on file Sexual Orientation [...] mammogram documented in this encounter Care Teams Milled Lumber Grader Relationship Specialty Start Date End Date Eliseo Leigh MD [address] [address] PCP - General 04/15/04 11/30/21 documented as of this encounter
--- OUTSIDE RECORDS SUMMARY | 2025-01-25 11:09 | XMS_ITS | Encounter Summary ---
Author Organization [facility] Address [address] [place] [address] Care Team Providers Care Seal Delivery Vehicle Officer Name Role Phone Eliseo Leigh MD Primary Care Provider [phone] Reason for Referral * Outpatient Services (Routine) - Closed Specialty Diagnoses / Procedures Referred By Michael mendes Referred To Contact Diagnoses Visit for screening mammogram Procedures MAMMO DIGITAL SCREEN BILAT Eliseo Leigh MD [address] [address] Phone: tel: fax: Referral ID Status Reason Start Date Expiration Date Visits Re quested Visits Authorized [id number] Closed 09/19/2015 10/19/2016 1 1 Encounter Details Date Type Department Care Team (Latest Contact Info) Description 09/19/2015 Ancillary Orders [facility] Pre-Registration [place] CALL TO MAKE APPOINTMENT ONLY [address] [place] [address] Eliseo Leigh MD [address] [address] Visit for screening mammogram (Primary Dx) Social History Tobacco Use Types Packs/Day Years Used Date Smoking Tobacco: Never Smokeless Tobacco: Never Alcohol Use Standard Drinks/Week Comments No 0 (1 standard drink = 0.6 oz pur e alcohol) Comments No Sex and Gender Information Value Date Recorded Sex Assigned at Not on file Legal Sex Female 3:08 AM LOGISTICS TECHNICIAN Gender Identity Not on file Sexual [...] documented as of this encounter Care Teams Seal Delivery Vehicle Officer Relationship Specialty Start Date End Date Eliseo Leigh MD [address] [phone] PCP - General 04/15/04 11/30/21 documented as of this encounter
--- OUTSIDE RECORDS SUMMARY | 2025-01-25 11:09 | XMS_ITS | Encounter Summary ---
Author Organization [facility] Address [address] [place] [address] Care Team Providers Care Windsurfing Instructor Name Role Phone Eliseo Leigh MD Primary Care Provider [phone] Reason for Referral * Outpatient Services (Routine) - Closed Specialty Diagnoses / Procedures Referred By Contmegha t Referred To Contact Diagnoses Other screening mammogram Procedures MAMMO DIGITAL SCREEN BILAT Eliseo Leigh MD [address] [address] Phone: tel: fax: [facility] Pre-Registration [place] CALL TO MAKE APPOINTMENT ONLY [address] [place] [address] Phone: tel: fax: Referral ID Status Reason Start Date Expiration Date Visits Re quested Visits Authorized [id number] Closed 07/28/2012 08/28/2013 1 1 Encounter Details Date Type Department Care Team (Latest Contact Info) Description 07/28/2012 Ancillary Orders [facility] Pre-Registration [place] CALL TO MAKE APPOINTMENT ONLY [address] [place] [address] Eliseo Leigh MD [address] [place] [address] Other screening mammogram (Primary Dx) Social History Tobacco Use Types Packs/Day Years Used Date Smoking Tobacco: Never Smokeless Tobacco: Never Alcohol Use Standard Drinks/Week Comments No 0 (1 standard drink = 0.6 oz pur e alcohol) Comments No Sex and Gender Information Value Date Recorded Sex Assigned at Not on file Legal Sex Female 3:08 AM FEED GRINDER Gender Identity Not on file Sexual Orientation [...] mammogram documented in this encounter Care Teams Windsurfing Instructor Relationship Specialty Start Date End Date Eliseo Leigh MD [address] [place] [phone] PCP - General 04/15/04 11/30/21 documented as of this encounter
--- OUTSIDE RECORDS SUMMARY | 2025-01-25 11:09 | XMS_ITS | Encounter Summary ---
Author Organization [facility] Address [address] [place] [address] Care Team Providers Care Tanker Service Attendant Name Role Phone Eliseo Leigh MD Primary Care Provider [phone] Encounter Details Date Type Department Care Team (Late st Contact Info) Description 08/08/2000 Outpatient Historical [facility] Yimi Buenrostro MD [address] [place] [address] Routine medical exam (Primary Dx); Unspecified essential hypertension Social History Tobacco Use Types Packs/Day Years Used Date Smoking Tobacco: Never Assessed Comments Unknown Sex and Gender Information Value Date Recorded Sex Assigned at Not on file 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
--- OUTSIDE RECORDS SUMMARY | 2025-01-25 11:09 | XMS_ITS | Encounter Summary ---
Author Organization [facility] Address [address] [place] [address] Care Team Providers Care Triage Register Nurse Name Role Phone Eliseo Leigh MD Primary Care Provider [phone] Reason for Visit * Reason Comments Med Refill Encounter Details Date Type Department Care Team (Late st Contact Info) Description 01/25/2025 Refill [facility] [address] [place] [place] [address] Eliseo Leigh MD [address] [place] [address] Social History Tobacco Use Types [...] on file Legal Sex Female 6:28 AM EMISSIONS TECHNICIAN Gender Identity Not on file Sexual Orientation Not on file documented as of this encounter Plan of Treatment Upcoming Encounters Date Type Department Care Team (Late st Contact Info) Description 04/16/2025 8:00 AM CDT Procedure visit [facility] [address] [place] [phone] Ritesh Chambers MD [address] [place] [address] 06/27/2025 11:30 AM CDT Appointment [facility] Echo [address] [place] [address] Jarocho Good MD [address] [place] [address] 06/27/2025 1:30 PM CDT Office Visit [facility] [address] [place] [address] Jarocho Good MD [address] [place] [address] 01/13/2026 10:40 AM EMISSIONS TECHNICIAN Office Visit [facility] [address] [place] [address] Jose Bob CRNP [address] [place] [address] Ritesh Chambers MD [address] [place] [address] Nedra Zapata NP [address], [address] [place] [address] documented as of this encounter Visit Diagnoses Not on filedocumented in this encounter Care Teams Triage Register Nurse Relationship Specialty Start Date End Date Eliseo Leigh MD [address] [address] PCP - General Family Practice 01/30/24 documented as of this encounter
--- OUTSIDE RECORDS SUMMARY | 2025-01-25 11:09 | XMS_ITS | Encounter Summary ---
Author Organization [facility] Address [address] [facility] [place] [address] Care Team Providers Care Linen Room Supervisor Name Role Phone Eliseo Leigh MD Primary Care Provider [phone] Encounter Details Date Type Department Care Team (Latest Contact Info) Description 11/01/2000 Outpatient Historical [facility] Tony Pollard MD NO ADDRESS ON FILE Unspecified closed fracture of ankle (Primary Dx) Social History Tobacco Use Types Packs/Day Years Used Date Smoking Tobacco: Never Assessed Comments Unknown Sex and Gender Information Value Date Recorded Sex Assigned at Not on file 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
--- OUTSIDE RECORDS SUMMARY | 2025-01-25 11:09 | XMS_ITS | Encounter Summary ---
Author Organization [facility] Address [address] [facility] [place] [place] [address] Care Team Providers Care Lithographer Apprentice Name Role Phone Eliseo Leigh MD Primary Care Provider [phone] Encounter Details Date Type Department Care Team (Late st Contact Info) Description 08/31/2000 Outpatient Historical [facility] Yimi Buenrostro MD [address] [place] [address] Hypopotassemia (Primary Dx) Social History Tobacco Use Types Packs/Day Years Used Date Smoking Tobacco: Never Assessed Comments Unknown Sex and Gender Information Value Date Recorded Sex Assigned at Not on file Legal Sex Female 3:[address] Gender Identity Not on file Sexual Orientation Not on file documented as of this encounter Plan of Treatment Not on file documented as of this encounter Visit Diagnoses Diagnosis Hypopotassemia- Primary documented in this encounter Care Teams Lithographer Apprentice Relationship Specialty Start Date End Date Eliseo Leigh MD [address] [place] [phone] PCP - General 04/15/04 11/30/21 documented as of this encounter
--- OUTSIDE RECORDS SUMMARY | 2025-01-25 11:09 | XMS_ITS | Encounter Summary ---
Author Organization [facility] Address [address] [place] [address] Care Team Providers Care High School Music Director Name Role Phone Eliseo Leigh MD Primary Care Provider [phone] Encounter Details Date Type Department Care Team (Latest Contact Info) Description 01/11/2006 Outpatient Historical [facility] [address] [place] [place] [address] Eliseo Leigh MD [address] [place] [address] Other Malaise and Fatigue (Primary Dx); Unspecified Hypothyroidism; Undiagnosed Cardiac Murmurs; Unspecified Chest Pain; Vaccine for influenza Social History Tobacco Use Types Packs/Day Years Used Date Smoking Tobacco: Never Assessed Comments Unknown Sex and Gender Information Value Date Recorded Sex Assigned at Not on file Legal Sex Female 3:08 AM HARPOONER Gender Identity Not on file Sexual Orientation Not on file documented as of this encounter Plan of Treatment Not on file documented as of this encounter Visit Diagnoses Diagnosis Other malaise and fatigue- Primary Unspecified hypothyroidism Undiagnosed cardiac murmurs Chest pain, unspecified Vaccine for influenza Need for prophylactic vaccination and inoculation against influenza documented in this encounter Care Teams High School Music Director Relationship Specialty Start Date End Date Eliseo Leigh MD [address] [phone] PCP - General 04/15/04 11/30/21 documented as of this encounter
--- OUTSIDE RECORDS SUMMARY | 2025-01-25 11:09 | XMS_ITS | Encounter Summary ---
Author Organization [facility] Address [address] [place]: Epic Prelude ADT [place] [address] Care Team Providers Care Landscaping And Groundskeeping Laborer Name Role Phone Eliseo Leigh MD Primary Care Provider [phone] Encounter Details Date Type Department Care Team (Late st Contact Info) Description 10/17/2000 Outpatient Historical Tony Pollard MD NO ADDRESS ON FILE Social History Tobacco Use Types Packs/Day Years Used Date Smoking Tobacco: Never Assessed Comments Unknown Sex and Gender Information Value Date Recorded Sex Assigned at Not on file Legal Sex Female 3:08 AM TRANSPORTATION AID Gender Identity Not on file Sexual Orientation Not on file documented as of this encounter Plan of Treatment Not on file documented as of this encounter Visit Diagnoses Not on filedocumented in this encounter Care Teams Landscaping And Groundskeeping Laborer Relationship Specialty Start Date End Date Eliseo Leigh MD [address] [facility] [address] [place] [phone] PCP - General 04/15/04 11/30/21 documented as of this encounter
--- OUTSIDE RECORDS SUMMARY | 2025-01-25 11:09 | XMS_ITS | Encounter Summary ---
Author Organization [facility] Address [address] [place] [address] Care Team Providers Care Shell Press Operator Name Role Phone Eliseo Leigh MD Primary Care Provider Encounter Details Date Type Department Care Team (Late st Contact Info) Description 08/06/2005 Outpatient Historical [facility] [address] [place] [address] Social History Tobacco Use Types Packs/Day Years Used Date Smoking Tobacco: Never Assessed Comments Unknown Sex and Gender Information Value Date Recorded Sex Assigned at Not on file Legal Sex Female 3:08 AM AUTO WINDER Gender Identity Not on file Sexual Orientation Not on file documented as of this encounter Plan of Treatment Not on file documented as of this encounter Visit Diagnoses Not on filedocumented in this encounter Care Teams Shell Press Operator Relationship Specialty Start Date End Date Eliseo Leigh MD [address] [phone] PCP - General 04/15/04 11/30/21 documented as of this encounter
--- OUTSIDE RECORDS SUMMARY | 2025-01-25 11:09 | XMS_ITS | Encounter Summary ---
Author Organization [facility] Address [address] [place] [address] Care Team Providers Care Sports Commentator Name Role Phone Eliseo Leigh MD Primary Care Provider [phone] Reason for Referral * Outpatient Services (Routine) - Closed Specialty Diagnoses / Procedures Referred By Contac t Referred To Contact Diagnoses Encounter for screening mammogram for malignant neoplasm of breast Procedures MAMMO SCREEN BILAT W OR WO CAD Eliseo Leigh MD [address] [address] Phone: tel: fax: Referral ID Status Reason Start Date Expiration Date Visits Re quested Visits Authorized [id number] Closed 10/26/2016 11/26/2017 1 1 Encounter Details Date Type Department Care Team (Latest Contact Info) Description 10/26/2016 Ancillary Orders [facility] Pre-Registration [place] CALL TO MAKE APPOINTMENT ONLY [address] [place] [address] Eliseo Leigh MD [address] [address] Encounter for screening mammogram for malignant neoplasm of breast Social History Tobacco Use Types Packs/Day Years Used Date Smoking Tobacco: Never Smokeless Tobacco: Never Alcohol Use Standard Drinks/Week Comments No 0 (1 standard drink = 0.6 oz pur e alcohol) Comments No Sex and Gender Information Value Date Recorded Sex Assigned at Not on file Legal Sex Female 3:08 AM VETERANS SERVICE OFFICER Gender Identity Not on file Sexual [...] documented as of this encounter Care Teams Sports Commentator Relationship Specialty Start Date End Date Eliseo Leigh MD [address] [address] PCP - General 04/15/04 11/30/21 documented as of this encounter
--- OUTSIDE RECORDS SUMMARY | 2025-01-25 11:09 | XMS_ITS | Encounter Summary ---
Author Organization [facility] Address [address] [place] [address] Care Team Providers Care Swimming Pool Salesperson Name Role Phone Eliseo Leigh MD Primary Care Provider Encounter Details Date Type Department Care Team (Late st Contact Info) Description 03/31/2005 Outpatient Historical [facility] [address] [place] [address] Elyssa Cooper, RN NO ADDRESS ON FILE Social History Tobacco Use Types Packs/Day Years Used Date Smoking Tobacco: Never Assessed Comments Unknown Sex and Gender Information Value Date Recorded Sex Assigned at Not on file Legal Sex Female 3:08 AM ENVIRONMENTAL ADVISOR Gender Identity Not on file Sexual Orientation Not on file documented as of this encounter Plan of Treatment Not on file documented as of this encounter Visit Diagnoses Not on filedocumented in this encounter Care Teams Swimming Pool Salesperson Relationship Specialty Start Date End Date Eliseo Leigh MD [address] [phone] PCP - General 04/15/04 11/30/21 documented as of this encounter
--- OUTSIDE RECORDS SUMMARY | 2025-01-25 11:09 | XMS_ITS | Encounter Summary ---
Author Organization [facility] Address [address] [place] [address] Care Team Providers Care Shank Inspector Name Role Phone Eliseo Leigh MD Primary Care Provider [phone] Reason for Visit * Reason Comments Med Refill Encounter Details Date Type Department Care Team (Late st Contact Info) Description 01/25/2025 Refill [facility] [address] [facility] [address] [place] [address] Ritesh Chambers MD [address] [facility] [address] [place] [address] Social History Tobacco Use Types Packs/Day Years [...] on file Legal Sex Female 6:28 AM STATIONARY ENGINEER REFRIGERATION Gender Identity Not on file Sexual Orientation Not on file documented as of this encounter Plan of Treatment Upcoming Encounters Date Type Department Care Team (Late st Contact Info) Description 04/16/2025 8:00 AM CDT Procedure visit [facility] [address] [place] [phone] Ritesh Chambers MD [address] [place] [address] 06/27/2025 11:30 AM CDT Appointment [facility] Echo [address] [place] [address] Jarocho Good MD [address] [place] [address] 06/27/2025 1:30 PM CDT Office Visit [facility] [address] [place] [address] Jarocho Good MD [address] [place] [address] 01/13/2026 10:40 AM STATIONARY ENGINEER REFRIGERATION Office Visit [facility] [address] [place] [address] Jose Bob CRNP [address], [address] [place] [address] Ritesh Chambers MD [address] [place] [address] Nedra Zapata NP [address], [address] [place] [address] documented as of this encounter Visit Diagnoses Not on filedocumented in this encounter Care Teams Shank Inspector Relationship Specialty Start Date End Date Eliseo Leigh MD [address] [phone] PCP - General Family Practice 01/30/24 documented as of this encounter
--- OUTSIDE RECORDS SUMMARY | 2025-01-25 11:09 | XMS_ITS | Encounter Summary ---
Author Organization [facility] Address [address] [place] [address] Care Team Providers Care News Director Name Role Phone Eliseo Leigh MD Primary Care Provider [phone] Encounter Details Date Type Department Care Team (Latest Contact Info) Description 06/11/2009 Ancillary Orders [facility] [address] [facility] [address] [place] [address] Eliseo Leigh MD [address] [facility] [address] [place] [address] Other (Abnormal) Findings on Radiological Examination of Breast Social History Tobacco Use Types Packs/Day Years Used Date Smoking Tobacco: Never Alcohol Use Standard Drinks/Week Comments No 0 (1 standard drink = 0.6 oz pur e alcohol) Comments No Sex and Gender Information Value Date Recorded Sex Assigned at Not on file Legal Sex Female 3:08 AM BALL SHAGGER Gender Identity Not on file Sexual Orientation [...] breast documented in this encounter Care Teams News Director Relationship Specialty Start Date End Date Eliseo Leigh MD [address] [phone] PCP - General 04/15/04 11/30/21 documented as of this encounter
--- OUTSIDE RECORDS SUMMARY | 2025-01-25 11:09 | XMS_ITS | Encounter Summary ---
Author Organization [facility] Address [address] [place] [address] Care Team Providers Care Marine Diver Name Role Phone Eliseo Leigh MD Primary Care Provider [phone] Encounter Details Date Type Department Care Team (Latest Contact Info) Description 10/25/2005 Outpatient Historical [facility] [address] [facility] [address] [place] [address] Adam Jimenez MD [address] [place] [address] Blepharochalasis (Primary Dx) Social History Tobacco Use Types Packs/Day Years Used Date Smoking Tobacco: Never Assessed Comments Unknown Sex and Gender Information Value Date Recorded Sex Assigned at Not on file Legal Sex Female 3:08 AM FOOD AND BEVERAGE ATTENDANT Gender Identity Not on file Sexual Orientation Not on file documented as of this encounter Plan of Treatment Not on file documented as of this encounter Visit Diagnoses Diagnosis Blepharochalasis- Primary documented in this encounter Care Teams Marine Diver Relationship Specialty Start Date End Date Eliseo Leigh MD [address] [phone] PCP - General 04/15/04 11/30/21 documented as of this encounter
--- OUTSIDE RECORDS SUMMARY | 2025-01-25 11:09 | XMS_ITS | Encounter Summary ---
Author Organization [facility] Address [address] [place] [facility] [place] [address] Care Team Providers Care Hearing Aid Mechanic Name Role Phone Eliseo Leigh MD Primary Care Provider [phone] Encounter Details Date Type Department Care Team (Latest Contact Info) Description 04/15/2004 Outpatient Historical [facility] [place] [address] [place] [phone] Laura Lopez MD NO ADDRESS ON FILE SCREENING MAMM-MAILG NEOPL-OTHER (Primary Dx) Social History Tobacco Use Types Packs/Day Years Used Date Smoking Tobacco: Never Assessed Comments Unknown Sex and Gender Information Value Date Recorded Sex Assigned at Not on file Legal Sex Female 3:08 AM COMPUTER SPECIALIST Gender Identity Not on file Sexual Orientation Not on file documented as of this encounter Plan of Treatment Not on file documented as of this encounter Visit Diagnoses Diagnosis Other screening mammogram- Primary documented in this encounter Care Teams Hearing Aid Mechanic Relationship Specialty Start Date End Date Eliseo Leigh MD [address] [place] [address] PCP - General 04/15/04 11/30/21 documented as of this encounter
--- OUTSIDE RECORDS SUMMARY | 2025-01-25 11:09 | XMS_ITS | Encounter Summary ---
Author Organization [facility] Address [address] [facility] [place] [address] Care Team Providers Care Key Person Name Role Phone Eliseo Leigh MD Primary Care Provider [phone] Encounter Details Date Type Department Care Team (Late st Contact Info) Description 05/08/2007 Outpatient Historical [facility] [place] [address] [facility] [place] [phone] Social History Tobacco Use Types Packs/Day Years Used Date Smoking Tobacco: Never Assessed Comments No Sex and Gender Information Value Date Recorded Sex Assigned at Not on file Legal Sex Female 3:08 AM CUTTER BARREL DRUM Gender Identity Not on file Sexual Orientation Not on file documented as of this encounter Plan of Treatment Not on file documented as of this encounter Visit Diagnoses Not on filedocumented in this encounter Care Teams Key Person Relationship Specialty Start Date End Date Eliseo Leigh MD [address] [place] [phone] PCP - General 04/15/04 11/30/21 documented as of this encounter
--- OUTSIDE RECORDS SUMMARY | 2025-01-25 11:09 | XMS_ITS | Encounter Summary ---
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, Including Hip Social History Tobacco Use Types Packs/Day Years Used Date Smoking Tobacco: Never Assessed Comments No Sex and Gender Information Value Date Recorded Sex Assigned at Not on file Legal Sex Female 3:08 AM ELECTRICAL INSTALLATION INSPECTOR Gender Identity Not on file Sexual Orientation Not on file documented as of this encounter Plan of Treatment Not on file documented as of this encounter Visit Diagnoses Diagnosis 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
--- OUTSIDE RECORDS SUMMARY | 2025-01-25 11:09 | XMS_ITS | Encounter Summary ---
Author Organization [facility] Address [address] [place] [facility] [place] [address] Care Team Providers Care Bicycle Messenger Name Role Phone Eliseo Leigh MD Primary Care Provider [phone] Encounter Details Date Type Department Care Team (Late st Contact Info) Description 08/23/2000 Outpatient Historical [facility] Yimi Buenrostro MD [address] [place] [address] Unspecified essential hypertension (Primary Dx) Social History Tobacco Use Types Packs/Day Years Used Date Smoking Tobacco: Never Assessed Comments Unknown Sex and Gender Information Value Date Recorded Sex Assigned at Not on file Legal Sex Female 3:08 AM RENEWALS SPECIALIST Gender Identity Not on file Sexual Orientation Not on file documented as of this encounter Plan of Treatment Not on file documented as of this encounter Visit Diagnoses Diagnosis Unspecified essential hypertension- Primary documented in this encounter Care Teams Bicycle Messenger Relationship Specialty Start Date End Date Eliseo Leigh MD [address] [place] [phone] PCP - General 04/15/04 11/30/21 documented as of this encounter
--- OUTSIDE RECORDS SUMMARY | 2025-01-25 11:09 | XMS_ITS | Encounter Summary ---
Author Organization [facility] Address [address] [place] [address] Care Team Providers Care Staffing Manager Name Role Phone Eliseo Leigh MD Primary Care Provider [phone] Encounter Details Date Type Department Care Team (Latest Contact Info) Description 04/15/[address] [facility] [place] [address] [place] [address] Eliseo Leigh MD [address] [address] SCREENING MAMM-MAILG NEOPL-OTHER (Primary Dx) Social History Tobacco Use Types Packs/Day Years Used Date Smoking Tobacco: Never Assessed Comments Unknown Sex and Gender Information Value Date Recorded Sex Assigned at Not on file Legal Sex Female 3:08 AM ANIMATION ARTIST Gender Identity Not on file Sexual Orientation Not on file documented as of this encounter Plan of Treatment Not on file documented as of this encounter Visit Diagnoses Diagnosis Other screening mammogram- Primary documented in this encounter Care Teams Staffing Manager Relationship Specialty Start Date End Date Eliseo Leigh MD [address] [address] PCP - General 04/15/04 11/30/21 documented as of this encounter
--- OUTSIDE RECORDS SUMMARY | 2025-01-25 11:09 | XMS_ITS | Encounter Summary ---
Author Organization [facility] Address [address] [place] [address] Care Team Providers Care Medical Reimbursement Specialist Name Role Phone Eliseo Leigh MD Primary Care Provider [phone] Reason for Referral * Outpatient Services (Routine) - Closed Specialty Diagnoses / Procedures Referred By Contmegha t Referred To Contact Diagnoses Other screening mammogram Procedures MAMMO DIGITAL SCREEN BILAT Eliseo Leigh MD [address] [address] Phone: tel: fax: [facility] Pre-Registration [place] CALL TO MAKE APPOINTMENT ONLY [address] [place] [address] Phone: tel: fax: Referral ID Status Reason Start Date Expiration Date Visits Re quested Visits Authorized [id number] Closed 06/06/2014 07/07/2015 1 1 Encounter Details Date Type Department Care Team (Latest Contact Info) Description 06/06/2014 Ancillary Orders [facility] Pre-Registration [place] CALL TO MAKE APPOINTMENT ONLY [address] [place] [address] Eliseo Leigh MD [address] [place] [address] Other screening mammogram (Primary Dx) Social History Tobacco Use Types Packs/Day Years Used Date Smoking Tobacco: Never Smokeless Tobacco: Never Alcohol Use Standard Drinks/Week Comments No 0 (1 standard drink = 0.6 oz pur e alcohol) Comments No Sex and Gender Information Value Date Recorded Sex Assigned at Not on file 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
--- OUTSIDE RECORDS SUMMARY | 2025-01-25 11:09 | XMS_ITS | Encounter Summary ---
Author Organization [facility] Address [address] [facility] [place] [facility] [place] [address] Care Team Providers Care Cephalometric Analyst Name Role Phone Eilseo Leigh MD Primary Care Provider [phone] Encounter Details Date Type Department Care Team (Latest Contact Info) Description 11/27/[address] 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
--- OUTSIDE RECORDS SUMMARY | 2025-01-25 11:09 | XMS_ITS | Encounter Summary ---
Author Organization [facility] Address [address] [place] [address] Care Team Providers Care Residence Manager Name Role Phone Eliseo Leigh MD Primary Care Provider [phone] Reason for Referral * Eval and Treat (Routine) - Closed Specialty Diagnoses / Procedures Referred By Michael mendes Referred To Contact Nephrology Diagnoses Elevated serum creatinine Procedures [place] OFFICE/OUTPATIENT ESTABLISHED MOD MDM 30 MIN [place] OFFICE/OUTPATIENT NEW MODERATE MDM 45 MINUTES Virgil Lees, RETROFIT INSTALLER [address] [place] [address] Phone: tel: fax: [facility] [address] [place] [address] Phone: tel: fax: Referral ID Status Reason Start Date Expiration Date Visits Re quested Visits Authorized [id number] Closed 12/23/2024 12/24/2025 1 1 [employer] Encounter Details Date Type Department Care Team (Late st Contact Info) Description 12/23/2024 Results Follow-Up 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 Please schedule a follow-up for reevaluation. If symptoms worsen or if you develop new symptoms please follow-up sooner or go to urgent care/ER. SETTER STE[employer]MS * Result Encounter Note - Virgil Lees NP - 12/23/2024 11:01 AM CST CMP shows elevated serum creatinine and decreased GFR. However, this has improved over the past 7 months. Please continue to stay hydrated with both water and sugar-free sports drinks. I have also placed a referral to nephrology for follow-up related to your kidney function. CBC is unremarkable. Tick panel is still pending. SETTER [employer] documented in this encounter Plan of Treatment Upcoming Encounters Date Type Department Care Team (Late st Contact Info) Description 04/16/2025 8:00 AM CDT Procedure visit [facility] [address] [place] [phone] Ritesh Chambers MD [address] [place] [phone] 06/27/2025 11:30 AM CDT Appointment [facility] [address] [place] [address] Jarocho Good MD [address] [place] [phone] 06/27/2025 1:30 PM CDT Office Visit [facility] [address] [place] [phone] Jarocho Good MD [address] [place] [phone] 01/13/2026 10:40 AM FORM SETTER STEEL FORMS Office Visit [facility] [address] [place] [phone] Jose Bob CRNP [address], [address] [place] [phone] Ritesh Chambers MD [address] [place] [phone] Nedra Zapata NP [address], [address] [place] [phone] Scheduled Referrals Name Type Priority Associated Diagnoses Order Schedule AMB REFERRAL TO NEPHROLOGY Outpatient Referral Routine Elevated serum creatinine Ordered: 12/23/2024 documented as of this encounter Visit Diagnoses Diagnosis Elevated serum creatinine- Primary Other nonspecific findings on examination of blood documented in this encounter Care Teams Residence Manager Relationship Specialty Start Date End Date Eliseo Leigh MD [address] [address] PCP - General Family Practice 01/30/24 documented as of this encounter
--- OUTSIDE RECORDS SUMMARY | 2025-01-25 11:09 | XMS_ITS | Encounter Summary ---
Author Organization [facility] Address [address] [place] [address] Care Team Providers Care Breakdown Man Name Role Phone Eliseo Leigh MD Primary Care Provider [phone] Encounter Details Date Type Department Care Team (Latest Contact Info) Description 02/23/2001 Outpatient Historical [facility] [place] [place] [address] Dennys Hudson MD [address] [place] [address] ABDOMINAL PAIN UNSPEC SITE (Primary Dx); HYPOTHYROIDISM NOS Social History Tobacco Use Types Packs/Day Years Used Date Smoking Tobacco: Never Assessed Comments Unknown Sex and Gender Information Value Date Recorded Sex Assigned at Not on file 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
--- OUTSIDE RECORDS SUMMARY | 2025-01-25 11:09 | XMS_ITS | Encounter Summary ---
Author Organization [facility] Address [address] 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
--- OUTSIDE RECORDS SUMMARY | 2025-01-25 11:09 | XMS_ITS | Encounter Summary ---
Author Organization [facility] Address [address] [facility] [place] [address] Care Team Providers Care Computer Forensics Investigator Name Role Phone Eliseo Leigh MD Primary Care Provider [phone] Encounter Details Date Type Department Care Team (Latest Contact Info) Description 08/23/2000 Outpatient Historical [facility] Tony Pollard MD NO ADDRESS ON FILE Chondromalacia patellae (Primary Dx); Pain in joint, lower leg; Pain in joint, ankle and foot Social History Tobacco Use Types Packs/Day Years Used Date Smoking Tobacco: Never Assessed Comments Unknown Sex and Gender Information Value Date Recorded Sex Assigned at Not on file 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
--- OUTSIDE RECORDS SUMMARY | 2025-01-25 11:09 | XMS_ITS | Encounter Summary ---
Author Organization [facility] Address [address] [place] [facility] [place] [address] Care Team Providers Care Line Up Machine Operator Name Role Phone Eliseo Leigh MD Primary Care Provider [phone] Encounter Details Date Type Department Care Team (Latest Contact Info) Description 12/02/2004 Outpatient Historical [facility] Cardiology Ancillary Services[facility] [address] [place] [address] Taran Porter MD NO ADDRESS ON FILE Aortic valve disorder (Primary Dx) Social History Tobacco Use Types Packs/Day Years Used Date Smoking Tobacco: Never Assessed Comments Unknown Sex and Gender Information Value Date Recorded Sex Assigned at Not on file 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
--- OUTSIDE RECORDS SUMMARY | 2025-01-25 11:09 | XMS_ITS | Encounter Summary ---
Author Organization [facility] Address [address] [facility] [place] [address] Care Team Providers Care Veterinary Receptionist Name Role Phone Eliseo Leigh MD Primary Care Provider [phone] Encounter Details Date Type Department Care Team (Latest Contact Info) Description 07/24/2004 Outpatient Historical [facility] Dermatology- [facility] [place] [address] [place] [address] Mckay Evangelista MD NO ADDRESS ON FILE BENIGN ELIZABETH SKIN FACE NEC (Primary Dx); SEBORRHEIC KERATOSIS NOS Social History Tobacco Use Types Packs/Day Years Used Date Smoking Tobacco: Never Assessed Comments Unknown Sex and Gender Information Value Date Recorded Sex Assigned at Not on file 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
--- OUTSIDE RECORDS SUMMARY | 2025-01-25 11:09 | XMS_ITS | Encounter Summary ---
Author Organization [facility] Address [address] [place] [address] Care Team Providers Care Acquisition Marketing Manager Name Role Phone Eliseo Leigh MD Primary Care Provider Encounter Details Date Type Department Care Team (Late st Contact Info) Description 01/14/2025 Results Follow-Up [facility] [address] [facility] [address] [place] [address] Ritesh Chambers MD [address] [facility] [address] [place] [address] PACER PROGRAM EVAL DUAL LEAD Social History Tobacco Use Types Packs/Day Years [...] on file Legal Sex Female 6:28 AM RECRUITING INTERNSHIP Gender Identity Not on file Sexual Orientation Not on file documented as of this encounter Miscellaneous Notes * Result Encounter Note - Ritesh Chambers MD - 01/14/2025 1:37 PM RECRUITING INTERNSHIP My interpretation is in agreement with the above documentation. UITING INTERNSHIP documented in this encounter Plan of Treatment Upcoming Encounters Date Type Department Care Team (Late st Contact Info) Description 04/16/2025 8:00 AM CDT Procedure visit [facility] [address] [place] [address] Ritesh Chambers MD [address] [place] [phone] 06/27/2025 11:30 AM CDT Appointment [facility] Echo [address] [place] [phone] Jarocho Good MD [address] [place] [phone] 06/27/2025 1:30 PM CDT Office Visit [facility] [address] [place] [address] Jarocho Good MD [address] [place] [address] 01/13/2026 10:40 AM RECRUITING INTERNSHIP Office Visit [facility] [address] [place] [address] Jose Bob CRNP [address] [place] [address] Ritesh Chambers MD [address] [facility] [address] [place] [address] Nedra Zapata NP [address] [facility] [address] [place] [address] documented as of this encounter Visit Diagnoses Not on filedocumented in this encounter Care Teams Acquisition Marketing Manager Relationship Specialty Start Date End Date Eliseo Leigh MD [address] [facility] [address] [place] [address] PCP - General Family Practice 01/30/24 documented as of this encounter
--- OUTSIDE RECORDS SUMMARY | 2025-01-25 11:09 | XMS_ITS | Encounter Summary ---
Author Organization [facility] Address [address] [place] [address] Care Team Providers Care Transcriber Name Role Phone Eliseo Leigh MD Primary Care Provider [phone] Encounter Details Date Type Department Care Team (Latest Contact Info) Description 05/06/2005 Outpatient Historical [facility] Eduardo [place] [address] 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
--- OUTSIDE RECORDS SUMMARY | 2025-01-25 11:09 | XMS_ITS | Encounter Summary ---
Author Organization [facility] Address [address] [place] [address] Care Team Providers Care Change House Attendant Name Role Phone Eliseo Leigh MD Primary Care Provider [phone] Encounter Details Date Type Department Care Team (Latest Contact Info) Description 02/23/2001 Outpatient Historical [facility] [place] [address] 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
--- OUTSIDE RECORDS SUMMARY | 2025-01-25 11:09 | XMS_ITS | Encounter Summary ---
Author Organization [facility] Address [address] [place] [address] Care Team Providers Care Store Operations Specialist Name Role Phone Eliseo Leigh MD Primary Care Provider [phone] Encounter Details Date Type Department Care Team (Late st Contact Info) Description 08/23/2000 Outpatient Historical [facility] [address] [place] [address] Yimi Buenrostro MD [address] [place] [address] Osteoarthrosis, unspecified whether generalized or localized, unspecified site (Primary Dx); Unspecified essential hypertension; Hyperpotassemia; Unspecified hypothyroidism Social History Tobacco Use Types Packs/Day Years Used Date Smoking Tobacco: Never Assessed Comments Unknown Sex and Gender Information Value Date Recorded Sex Assigned at Not on file 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
--- OUTSIDE RECORDS SUMMARY | 2025-01-25 11:09 | XMS_ITS | Encounter Summary ---
Author Organization [facility] Address [address] [place] [address] Care Team Providers Care Lay Out Inspector Name Role Phone Eliseo Leigh MD Primary Care Provider [phone] Encounter Details Date Type Department Care Team (Latest Contact Info) Description 10/15/2005 Outpatient [facility] [place] [address] [facility] [address] [place] [address] Adam Jimenez MD [address] [facility] [address] [place] [address] Dermatochalasis (Primary Dx) Social History Tobacco Use Types Packs/Day Years Used Date Smoking Tobacco: Never Assessed Comments Unknown Sex and Gender Information Value Date Recorded Sex Assigned at Not on file 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
--- OUTSIDE RECORDS SUMMARY | 2025-01-25 11:09 | XMS_ITS | Encounter Summary ---
Author Organization [facility] Address [address] [place] [address] Care Team Providers Care Dramatic Agent Name Role Phone Eliseo Leigh MD Primary Care Provider [phone] Encounter Details Date Type Department Care Team (Latest Contact Info) Description 11/26/2003 [facility] [address] [place] [address] Eliseo Leigh MD [address] [place] [address] HYPOTHYROIDISM NOS (Primary Dx); ANEMIA IN PREG-UNSPEC; OSTEOARTHROS NOS-UNSPEC; Vaccine for influenza Social History Tobacco Use Types Packs/Day Years Used Date Smoking Tobacco: Never Assessed Comments Unknown Sex and Gender Information Value Date Recorded Sex Assigned at Not on file 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
--- OUTSIDE RECORDS SUMMARY | 2025-01-25 11:09 | XMS_ITS | Encounter Summary ---
Author Organization [facility] Address [address] [place] [address] Care Team Providers Care Quality Control Tech Name Role Phone Eliseo Leigh MD Primary Care Provider [phone] Encounter Details Date Type Department Care Team (Late st Contact Info) Description 05/01/2009 Ancillary Orders [facility] [place] [address] [place] [address] Eliseo Leigh MD [address] [place] [address] Other Screening Mammogram Social History Tobacco Use Types Packs/Day Years Used Date Smoking Tobacco: Never Alcohol Use Standard Drinks/Week Comments No 0 (1 standard drink = 0.6 oz pur e alcohol) Comments No Sex and Gender Information Value Date Recorded Sex Assigned at Not on file 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
--- OUTSIDE RECORDS SUMMARY | 2025-01-25 11:09 | XMS_ITS | Encounter Summary ---
Author Organization [facility] Address [address] [place] [address] Care Team Providers Care Slack Cooper Name Role Phone Eliseo Leigh MD Primary Care Provider [phone] Encounter Details Date Type Department Care Team (Latest Contact Info) Description 11/13/2004 Outpatient Historical [facility] [place] [address] [place] [address] Eliseo Leigh MD [address] [place] [address] ABDOMINAL PAIN UNSPEC SITE (Primary Dx); HYPOTHYROIDISM NOS; HYPERTENSION NOS; CAMPOS'S PALSY Social History Tobacco Use Types Packs/Day Years Used Date Smoking Tobacco: Never Assessed Comments Unknown Sex and Gender Information Value Date Recorded Sex Assigned at Not on file 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
--- OUTSIDE RECORDS SUMMARY | 2025-01-25 11:09 | XMS_ITS | Encounter Summary ---
Author Organization [facility] Address [address] [place] [address] Care Team Providers Care Dry Starch Supervisor Name Role Phone Eliseo Leigh MD Primary Care Provider [phone] Encounter Details Date Type Department Care Team (Latest Contact Info) Description 04/15/2004 Outpatient Historical [facility] [place] [address] [place] [address] Eliseo Leigh MD [address] [place] [address] JOINT PAIN-L/LEG (Primary Dx); HYPERTENSION NOS; SYNOVITIS NOS Social History Tobacco Use Types Packs/Day Years Used Date Smoking Tobacco: Never Assessed Comments Unknown Sex and Gender Information Value Date Recorded Sex Assigned at Not on file 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
--- OUTSIDE RECORDS SUMMARY | 2025-01-25 11:09 | XMS_ITS | Encounter Summary ---
Author Organization [facility] Address [address] [place] [address] Care Team Providers Care Senior Operations Analyst Name Role Phone Eliseo Leigh MD Primary Care Provider Encounter Details Date Type Department Care Team (Latest Contact Info) Description 02/11/2004 Outpatient Historical [facility] [place] [address] [place] [address] Eliseo Leigh MD [address] [place] [address] HYPERTENSION NOS (Primary Dx) Social History Tobacco Use Types Packs/Day Years Used Date Smoking Tobacco: Never Assessed Comments Unknown Sex and Gender Information Value Date Recorded Sex Assigned at Not on file 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
--- OUTSIDE RECORDS SUMMARY | 2025-01-25 11:09 | XMS_ITS | Encounter Summary ---
Author Organization [facility] Address [address] [place] [address] Care Team Providers Care Corrections Specialist Name Role Phone Eliseo Leigh MD Primary Care Provider [phone] Reason for Referral * Radiology Services (Routine) - Closed Specialty Diagnoses / Procedures Referred By Contac t Referred To Contact Cardiology Diagnoses Pacemaker battery depletion Procedures CL BATTERY CHANGE Juan Win MD [facility] Cardiac Business And Financial Counsel [address] [place] [address] Phone: tel: fax: Referral ID Status Reason Start Date Expiration Date Visits Re quested Visits Authorized [id number] Closed 07/10/2018 08/10/2019 1 1 Encounter Details Date Type Department Care Team (Late st Contact Info) Description 07/10/2018 Ancillary Orders [facility] [place] [address] [place] [address] Juan Win MD NO ADDRESS ON FILE Pacemaker battery depletion Social History Tobacco Use Types Packs/Day Years Used Date Smoking Tobacco: Never Smokeless Tobacco: Never Alcohol Use Standard Drinks/Week Comments No 0 (1 standard drink = 0.6 oz pur e alcohol) Comments No Sex and Gender Information Value Date Recorded Sex Assigned at Not on file 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 2. Right atrial lead reused is a Medtronic 5076, serial number [id number]. 3. Right ventricular lead reused is a Medtronic 5076, serial number [id number]. 4. New pulse generator is a Medtronic [place] W1DR01, serial number [id number]. PROCEDURE: After informed consent obtained, the patient [...] explanted was a Medtronic Sensia SEDR01, serial [id number]. 2. Right atrial lead reused is a Medtronic 5076, serial [id number]. 3. Right ventricular lead reused is a Medtronic 5076, serial [id number]. 4. New pulse generator is a Medtronic [place] W1DR01, serial [id number]. PROCEDURE: After informed consent obtained, the patient [...] and 3000 ohms. SDW/ama - transcribed in [facility] - [facility] Juan Win MD FLUOROSCOPY ORDERABLES Abby mittal Result [facility] documented in this encounter Visit Diagnoses Diagnosis Pacemaker battery depletion Fitting and adjustment of cardiac pacemaker Pacemaker - Medtronic- Primary Cardiac pacemaker in situ Pacemaker battery depletion Fitting and adjustment of cardiac pacemaker documented in this encounter Care Teams Corrections Specialist Relationship Specialty Start Date End Date Eliseo Leigh MD [address] [phone] PCP - General 04/15/04 11/30/21 documented as of this encounter
--- OUTSIDE RECORDS SUMMARY | 2025-01-25 11:09 | XMS_ITS | Encounter Summary ---
Author Organization [facility] Address [address] [facility] [place] [address] Care Team Providers Care Photo Manager Name Role Phone Eliseo Leigh MD Primary Care Provider [phone] Encounter Details Date Type Department Care Team (Late st Contact Info) Description 10/04/2000 Outpatient Historical [facility] Yimi Buenrostro MD [address] [place] [address] Hyperpotassemia (Primary Dx); Unspecified hypothyroidism Social History Tobacco Use Types Packs/Day Years Used Date Smoking Tobacco: Never Assessed Comments Unknown Sex and Gender Information Value Date Recorded Sex Assigned at Not on file 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
--- OUTSIDE RECORDS SUMMARY | 2025-01-25 11:09 | XMS_ITS | Encounter Summary ---
Author Organization [facility] Address [address] [place] [address] Care Team Providers Care General Car Supervisor Yard Name Role Phone Eliseo Leigh MD Primary Care Provider [phone] Encounter Details Date Type Department Care Team (Latest Contact Info) Description 12/02/2004 Outpatient Historical [facility] [place] [address] [place] [address] Eliseo Leigh MD [address] [place] [address] Vaccine for influenza (Primary Dx) Social History Tobacco Use Types Packs/Day Years Used Date Smoking Tobacco: Never Assessed Comments Unknown Sex and Gender Information Value Date Recorded Sex Assigned at Not on file 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
--- OUTSIDE RECORDS SUMMARY | 2025-01-25 11:09 | XMS_ITS | Clinical Summary ---
Author Organization [facility] Address [address] [facility] [place] [address] Care Team Providers Care Senior Administrator Support Name Role Phone Eliseo Leigh MD Primary Care Provider [phone] Allergies Active Allergy Reactions Criticality Noted Date Comments Homar Inhibitors Unknown Caused kidney issues per patient Codeine Headache Low Covid-19 Vaccine, Mrna, [id number], Lnp-S (Pfizer) Rash Low 12/11/2020 Covid-19 Vaccine, Mrna, [id number], Lnp-S (Moderna) Rash Low 12/11/2020 Ezetimibe Unknown Weakness, feeling flush Udhjnga-Nhq-Hiu Reductase Inhibitors Muscle Pain,Weakness Low 08/14/2024 Weakness Medications Syringe with Needle, Disp, (BD Luer-Nirav Syringe) 3 mL 25 x 5/8 Syringe Inject 1 ml every 30 days 50 Each 0 020 Active nitroglycerin (NITROSTAT) 0.[address], [address] 1 Tablet (0.4 mg) under tongue every 5 minutes as needed for Chest Pain. 20 Tablet 0 021 Active Additional Information Patient not taking.Reported on 01/11/2025 potassium chloride (K-TAB) 20 mEq Extended Release tablet Take 1 Tablet (20 mEq) by mouth daily with breakfast. 90 Tablet 1 023 Active furosemide (LASIX) 40 mg tablet Take 1 Tablet (40 mg) by mouth daily. 40 Tablet 3 024 Active Additional Information Patient not taking.Reported on 01/11/2025 MAGNESIUM ORAL Take 1 Tablet by mouth daily. Active folic acid/multivit- min/lutein (CENTRUM SILVER ORAL) Take 1 Tablet by mouth daily. Active triamcinolone acetonide (NASACORT AQ) 55 mcg nasal spray Administer 1 [place] in each nostril daily. Active cholecalcifero l 1,250 mcg (50,000 unit) Capsule Take 1 Capsule (50,000 Units) by mouth every 7 days. 8 Capsule 4 9:28 AM CDT Active cyanocobalamin (VITAMIN B-12) 1,000 mcg/mL Solution Inject 1 mL (1,000 mcg) by intramuscular injection every 30 days. 10 mL 1 Active docusate sodium (Colace) 100 mg capsule Take 1 Capsule (100 mg) by mouth 2 times daily. 60 Capsule 12 Active propafenone (RYTHMOL) 150 mg Tablet Take 1 Tablet (150 mg) by mouth every 8 hours. 90 Tablet 11 Active isosorbide mononitrate (IMDUR) 30 mg Extended Release 24 hour tablet Take 1 Tablet (30 mg) by mouth daily in the morning. 30 Tablet 12 Active cyanocobalamin (VITAMIN B-12) 1,000 mcg/mL Solution Inject 1 mL (1,000 mcg) by intramuscular injection every 30 days. 30 mL 12 025 Active levothyroxine 125 mcg tablet TAKE 1 TABLET (125 MCG) BY MOUTH DAILY. 90 Tablet 3 Active famotidine (PEPCID) 40 mg tablet TAKE ONE TABLET BY MOUTH 2 TIMES DAILY 60 Tablet 025 Active Additional Information Patient taking differently:40 mg OralCONTINUOUS PRN, Reported on 01/11/2025 amLODIPine (NORVASC) 5 mg tablet TAKE 1 TABLET (5 MG) BY MOUTH DAILY. 30 Tablet 5 Active hydrOXYzine HCL (ATARAX) 25 mg tablet TAKE 1 TABLET BY MOUTH EVERY 8 HOURS NEEDED FOR ITCHING 90 Tablet 1 Active Additional Information Patient not taking.Reason: Ineffective, Reported on 01/11/2025 clobetasoL (TEMOVATE) 0.05 % Cream Apply to affected area 2 times daily. Active Clotrimazole (MYCELEX) 10 mg Pascual Take 10 mg by mouth 3 times daily. Active doxycycline hyclate (VIBRAMYCIN) 100 mg tablet Take 1 Tablet by mouth 2 times daily. Active leflunomide (ARAVA) 20 mg Tablet Take 1 Tablet by mouth daily. Active pilocarpine (SALAGEN) 5 mg Tablet Take 1 Tablet by mouth 3 times daily. Active predniSONE (DELTASONE) 20 mg tablet take TWO tablets BY MOUTH DAILY FOR SEVEN DAYS NEEDED FOR arthritis flare Active tiZANidine (ZANAFLEX) 4 mg Tablet TAKE 1/2 (ONE-HALF) TABLET BY MOUTH EVERY 6 HOURS NEEDED FOR MUSCLE SPASM . DO NOT EXCEED 3 DOSES PER 24 HOURS Active gabapentin (NEURONTIN) 300 mg capsule Take 1 Capsule (300 mg) by mouth daily at bedtime. 30 Capsule Active Additional Information Patient not taking.Reason: Ineffective, Reported on 01/11/2025 sertraline (ZOLOFT) 25 mg tablet TAKE ONE TABLET BY MOUTH EVERY DAY 90 Tablet 3 Active sertraline (ZOLOFT) 25 mg tablet Take 1 Tablet (25 mg) by mouth daily. 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 06/13/2022 Nonrheumatic mitral valve regurgitation 06/14/19 long-term current use of antiarrhythmic drug 05/2022 S/P [...] Encounters Date Type Department Care Team Description 01/25/2025 [facility] [address] [place] [address] Eliseo Leigh MD 01/25/2025 [facility] [address] [facility] [address] [place] [phone] Ritesh Chambers MD 01/14/2025 Results Follow-Up [place] [id number] [facility] [address] [place] [phone] Ritesh Chambers MD PACER PROGRAM EVAL DUAL LEAD 01/11/2025 11:30 AM QUICK SERVICE TECHNICIAN Procedure visit [place] [address] [facility] [address] [place] [phone] Ritesh Chambers MD Paroxysmal atrial fibrillation (CMS/HCC) (Primary Dx); Sick sinus syndrome (CMS/HCC); Complete heart block (CMS/HCC) 01/11/2025 11:20 AM QUICK SERVICE TECHNICIAN Office Visit [place] [address] [facility] [address] [place] [address] [phone] Jose Bob CRNP Parvathaneni, Sunth[place], MD Sick sinus syndrome (CMS/HCC) (Primary Dx); Pacemaker - Medtronic; History of transcatheter aortic valve replacement (TAVR); Paroxysmal atrial fibrillation (CMS/HCC); long-term current use of antiarrhythmic drug 01/04/2025 Orders Only [place] [address] [facility] [address] [place] [phone] Jose Bob CRNP Benign hypertension (Primary Dx) 12/26/2024 11:40 AM QUICK SERVICE TECHNICIAN Office Visit [facility] - [facility]opedic [facility] [address] [place] [phone] Hayden Canada PA-C Lumbar radiculopathy (Primary Dx); Status post total replacement of right hip - 09/15/2023 12/25/2024 External Device Data STL ABSTRACTION Provider, Abstract 12/24/2024 Orders Only [facility] Health Information Management [place] [address] [place] [address] Provider, Abstract 12/23/2024 Results Follow-Up [facility] [address] [facility] [address] [place] [address] Virgil Lees, IN TUBE CONVERSION TECHNICIAN CBC WITH DIFFERENTIAL, COMPREHENSIVE METABOLIC PANEL, TICK-BORNE DISEASE AB PANEL W/REFLEX 12/21/2024 11:30 AM QUICK SERVICE TECHNICIAN Office Visit [facility] EliseoEduardo Heart [facility] [address] [facility] [address] [place] [phone] Virgil Lees, [place] Tick bite, unspecified site, initial encounter (Primary Dx); Nodule of skin of right upper extremity; Situational mixed anxiety and depressive disorder 12/21/2024 Telephone [facility] EliseoEduardo Heart [facility] [address] [facility] [address] [place] [address] Eliseo Leigh MD Information 12/20/2024 Telephone [facility] [address] [facility] [address] [place] [address] Eliseo Leigh MD Needs Orders Written 12/20/2024 Telephone [facility] EliseoEduardo [facility] [address] [phone] Eliseo Leigh MD Needs Orders Written; Erroneous encounter-disregard 12/18/2024 Orders Only [facility] Information Management [place] [address] [place] [address] Provider, Abstract 12/12/2024 3:00 PM QUICK SERVICE TECHNICIAN Clinical Support [facility] [address] [facility] [address] [place] [address] Need for influenza vaccination (Primary Dx) 11/26/2024 Refill [facility] EliseoEduardo [facility] [address] [facility] [address] [place] [address] Eliseo Leigh MD 11/10/2024 Refill [facility] EliseoEduardo [place] [facility] [address] [facility] [address] [place] [address] Eliseo Leigh MD 10/30/2024 8:00 AM CDT Procedure visit [facility] [address] [facility] [address] [place] [address] Ritesh Chambers MD Complete heart block (CMS/HCC) (Primary Dx); Sick sinus syndrome (CMS/HCC); Atrial fibrillation, unspecified type (CMS/HCC); Cardiac pacemaker in situ from Last 3 Months Immunizations Immunization Administration [...] VIRUS, (65 YR UP), 0.5ML (PF), IM 12/12/2024,11/21/2023 Influenza Seasonal Unspecifi ed Formulation IM 12/08/2006,01/11/2006,12/02/2004,11/25,12/12/2000 [...] on file Legal Sex Female 6:28 AM QUICK SERVICE TECHNICIAN Gender Identity Not on file Sexual Orientation Not on file Last Filed Vital Signs Vital Sign Reading Time Taken Comments Blood Pressure 120/64 01/11/2025 11:10 AM QUICK SERVICE TECHNICIAN Pulse 103 01/11/2025 11:10 AM QUICK SERVICE TECHNICIAN Temperature 36.4 C (97.5 F) 12/21/2024 10:38 AM QUICK SERVICE TECHNICIAN Respiratory Rate 16 05/21/2024 10:30 AM CDT Oxygen Saturation 95% 12/21/2024 10:38 AM QUICK SERVICE TECHNICIAN Inhaled Oxygen Concentration - - Weight 63 kg (139 lb) 01/11/2025 11:10 AM QUICK SERVICE TECHNICIAN Height 162.6 cm (5' 4 ) 01/11/2025 11:10 AM QUICK SERVICE TECHNICIAN Body Mass Index 23.86 01/11/2025 11:10 AM QUICK SERVICE TECHNICIAN Plan of Treatment Upcoming Encounters Date Type Department Care Team (Late st Contact Info) Description 04/16/2025 8:00 AM CDT Procedure visit [facility] [address] [facility] [address] [place] [phone] Ritesh Chambers MD [address] [facility] [address] [place] [phone] 06/27/2025 11:30 AM CDT Appointment [facility] [address] [place] [address] Jarocho Good MD [address] [place] [address] [phone] 217- 06/27/2025 1:30 PM CDT Office Visit [facility] [address] [place] [phone] Jarocho Good MD [address] [place] [phone] 01/13/2026 10:40 AM QUICK SERVICE TECHNICIAN Office Visit [facility] [address] [place] [phone] Jose Bob CRNP [address] [place] [phone] Ritesh Chambers MD [address] [place] [phone] Nedra Zapata, [place] [address], [address] [place] [address] [phone]- Health Maintenance Due Date Last Done Comments ZOSTER VACCINE (2 of 3) 11/02/2011 09/07/2011 RSV VACCINE (60+ or ) (1 - 1-dose 75+ series) 2013 COLORECTAL SCREENING 03/15/2017 03/15/2012, 03/15/19 13 DTAP/TDAP/TD VACCINES (2 - T d or Tdap) 03/12/2018 03/12/2008 OSTEOPOROSIS SCREENING 09/03/2019 5, 09/02/2014, 09/02/2014, Additional history exists Traditional Medicare (ACO) A nnual Wellness Visit 03/31/2024 03/30/2023 COVID-19 Vaccine (2024-2 6 season) 2024 08/29/2020 PNEUMOCOCCAL VACCINE 50+ YEARS Completed 0 10/30/2019, 03/21/2014, 03/12/2008, Additional history exists INFLUENZA VACCINE Completed 12/12/2024, , 01/10/2023, Additional history exists Medical Devices Implanted Type Area Manager Nuclear Device Identifier Shelf Expiration Date Model / Serial / Lot Log [id number] - Cement - 1 - Simplex W/Tobra 6197-9-001 Implanted:Qty : 1 on 11/16/2010 Cement Right: Knee [employer]URIE[employer] 05/08/2012 6197-9-001 / / [id number] Simplex W/Tobra 6197-9-001 - Sna Implanted:Qty : 2 on 03/01/2011 Cement Left: Knee [employer] 09/29/2012 6197-9-001 / NA / [id number] Cement Activos W/Judd C10a Implanted:02/2014 by Scott Posadas MD (Quantity not on file) Cement Vertebrae [employer]IC - SPINAL fka KYPHON 10/07/2016 C10A / / [id number] Description:T12 Kyphoplasty Closure Perclose Prostyle Sut Mediate 37148-07 - [id number] Implanted:Qty : 1 on 06/22/2022 at [facility] Closure Device Right: Groin MAGUIRE- VASC DEVICE 04/06/2024 43307-36 / / [id number] Closure Perclose Prostyle Sut Mediate 05824-36 - [id number] Implanted:Qty : 1 on 06/22/2022 at [facility] Closure Device Right: Groin MAGUIRE- VASC DEVICE 04/06/2024 40164-66 / / [id number] Dev Closure Angioseal 6fr Vip [id number] - [id number] Implanted:Qty : 1 on 06/22/2022 at [facility] Closure Device Left: Groin MAGUIRE [facility] 01/06/2023 [id number] / / [id number] Lens Io Tecnis 1pc 22 [id number] - [id number] Implanted:Qty : 1 on 05/24/2013 by Angel Muse MD Eye Left: Eye [employer] 01/23/2017 [id number] / [id number] / Log [id number] - Bard Patches, Pledgets, Jonelle, Fabrics - 1 - [place] Ptfe Thck 1.6mmx2.5x2.5 cm [id number] Implanted:Qty : 1 on 12/18/2008 Graft CR BARD- JOHNNIE VASC INC 01/07/2013 [id number] / / [id number] Log 59607 - Bard Patches, Pledgets, Jonelle, Fabrics - 2 - [place] Ptfe Thck 1.6mmx2.5x2.5 cm [id number] Implanted:Qty : 1 on 12/18/2008 Graft CR BARD[employer]NNIE [employer]ASC INC 07/08/2013 [id number] / / [id number] Head Fem Cer 01/20 40mm 1365-40-710 - [id number] Implanted:Qty : 1 on 09/15/2023 by Julio Macdonald MD at [facility] Hip Right: Hip J&J- [employer] INC [id number] 06/06/2028 0 / / [id number] Stem Fem Actis Hi Colr Sz5 1010-12-050 - [id number] Implanted:Qty : 1 on 09/15/2023 by Julio Macdonald MD at [facility] Hip Right: Hip J&J- [employer] [id number] 08/06/2033 1010-01-11 0 / / [id number] Log [id number] - [place] Total Knee - 1 - Comp Fem Trthln Cr Sz4 Rt 5510-F-402 Implanted:Qty : 1 on 11/16/2010 Knee Right: Knee [employer] 07/09/2015 5510-F-402 / / [id number] Log [id number] - [place] Total Knee - 1 - Comp Tib Triathlon Cmnt 5520-B-400 Implanted:Qty : 1 on 11/16/2010 Knee Right: Knee [employer] 09/08/2015 5520-B-400 / / [id number] Log [id number] - [place] Total Knee - 1 - Insert Tib Trthln X3 Cs 5531-G-411 Implanted:Qty : 1 on 11/16/2010 Knee Right: Knee [employer] 08/08/2015 5531-G-411 / / [id number] Log [id number] - [place] Total Knee - 1 - [...] [employer] 09/30/2015 5531-P-411 / NA / [id number] Patella Trthln Sym Poly 5550-L-339 - Sna Implanted:Qty : 1 on 03/01/2011 Knee Left: Knee LAURIE- HOWMEDICA INT INC 10/31/2015 5550-L-339 / NA / [id number] Lead Pacing Capsure Fix Novus 52cm [id number] - Csc - [id number] Implanted:Qty : 1 on 10/14/2022 at [facility] Lead Left: Chest [employer]- CRM - BULK BUY 12/25/2023 [id number] / [id number] / Pacemaker Teresa Xt Surescan W1dr01 Pacemaker [employer]- CRM - BULK BUY [id number] 11/21/2019 W1DR01 / [id number] / Pacemaker Teresa Xt Dr Woods Ipg Dual Chmbr Surescan W1dr01 - [id number] Implanted:Qty : 1 on 10/14/2022 at [facility] Pacemaker Left: Chest [employer]- CRM - BULK BUY 03/06/2024 W1DR01 / [id number] / Pin Headless Fltd 02/14 8584-4n Implanted:Qty : 1 on 11/16/2010 Pin [employer] 7273-8A / / Description:moved down from [facility] list- Implant Type-TS Dlvry Sys Evolut Fx 23-29mm Q-Trhibvwt-64 29 - [id number] Implanted:Qty : 1 on 06/22/2022 at [facility] Valve N/A: Heart [employer]- HEART VALVE 02/11/2024 D-EVOLUTFX -2329 / [id number] / [id number] Vlv Aort Evolut Fx Tavr 26mm Evolutfx-26 - [id number] Implanted:Qty : 1 on 06/22/2022 at [facility] Valve N/A: Aorta [employer]- HEART VALVE 04/05/2024 EVOLUTFX-2 6 / [id number] / [id number] - [id number] Implanted:Qty : 1 on 12/18/2008 Heart 05/08/2013 LXA25 / [id number] / Description:[employer] Mitro flow Aortic Heart Valve (size 25mm) Liner Acet Emphasys [id number] Implanted:Qty : 1 on 09/15/2023 by Julio Macdonald MD at [facility] Right: Hip 06/06/2028 [id number] / / [id number] Shell Acet Emphyasys 54mm 3h Implanted:Qty : 1 on 09/15/2023 by Julio Macdonald MD at [facility] Right: Hip 07/07/2033 [id number] / / [id number] Procedures Procedure Name Priority Date/Time Associated Diagnosis Comments DE PROGRAM EVAL IMPLANTABLE IN PERSN DUAL LD PACER Routine 01/14/2025 10:47 AM QUICK SERVICE TECHNICIAN Paroxysmal atrial fibrillation (CMS/HCC) Sick sinus syndrome (CMS/HCC) Complete heart block (CMS/HCC) DE ECG ROUTINE ECG W/LEAST 12 LDS W/I&R Routine 01/11/2025 11:21 AM QUICK SERVICE TECHNICIAN Benign hypertension COMPREHENSIVE METABOLIC PANEL Routine 12/21/2024 12:24 PM QUICK SERVICE TECHNICIAN Tick bite, unspecified site, initial encounter CBC WITH DIFFERENTIAL Routine 12/21/2024 12:24 PM QUICK SERVICE TECHNICIAN Tick bite, unspecified site, initial encounter TICK-BORNE DISEASE AB PANEL W/REFLEX Routine 12/21/2024 12:24 PM QUICK SERVICE TECHNICIAN Tick bite, unspecified site, initial encounter COMPREHENSIVE METABOLIC PANEL Routine 12/08/2024 9:10 AM CDT COMPREHENSIVE METABOLIC PANEL Routine 12/03/2024 11:14 AM CDT DE REM INTERROG PM/LDLS PM/IDS <90 D TECH REVIEW Routine 10/29/2024 8:09 PM CDT Complete heart block (CMS/HCC) Sick sinus syndrome (CMS/HCC) Atrial fibrillation, unspecified type (CMS/HCC) Cardiac pacemaker in situ DE REM INTERROG PM/LDLS PM <90 D PHYS/QHP Routine 10/29/2024 8:09 PM CDT Complete heart block (CMS/HCC) Sick sinus syndrome (CMS/HCC) Atrial fibrillation, unspecified type (CMS/HCC) Cardiac pacemaker in situ XR DEXA BONE DENSITY AXIAL 1 OR MORE SITES Routine 09/02/2014 1:04 PM CDT Menopausal disorder from Last 3 Months or Most Recently Relevant to Health Maintenance Results * DE PROGRAM EVAL IMPLANTABLE IN PERSN DUAL LD PACER (01/14/2025 10:47 AM QUICK SERVICE TECHNICIAN) Narrative [facility] - 01/14/2025 10:47 AM QUICK SERVICE TECHNICIAN [place] 01/14/2025 10:47 AM Office Device Check By Vendor Cytogenetic Technician Date of Procedure: January 11, 2025 Manager Nuclear: Med[employer] Comments: Office check by Med[employer] sales solutions representative in conjunction w/ EP office visit. Interrogation reviewed by provider. Please see scan for details. Procedure Note [place] - 01/14/2025 10:47 AM CST Office Device Check By Vendor Cytogenetic Technician Date of Procedure: January 11, 2025 Manager Nuclear: [employer] Comments: Office check by [employer] sales solutions representative in conjunction w/ EPoffice visit. Interrogation reviewed by provider. Please see scan for details. us Ritesh Chambers MD CARDIAC SERVICES ORDERA BLES Final Result Performing Organization Address City/[facility]/ZIP Co de Phone Number [facility] [address] [place] [address] * DE ECG ROUTINE ECG W/LEAST 12 LDS W/I&R (01/11/2025 11:21 AM QUICK SERVICE TECHNICIAN) Narrative [facility] - 01/11/2025 11:21 AM QUICK SERVICE TECHNICIAN Jose Bob CRNP 01/11/2025 12:07 PM 12 Lead EKG: Rhythm: Atrial paced rhythm with PACs, left axis deviation right bundle branch block, minimal voltage criteria for LVH, septal infarct age undetermined-abnormal ECG, ventricular rate 103 bpm, DE interval 178 ms, QRS duration 134 ms, QTc 508 ms Procedure Note Jose Bob CRNP - 01/11/2025 11:21 AM CST 12 Lead EKG: Rhythm: Atrial paced rhythm with PACs, left axis deviationright bundle branch block, minimal voltage criteria for LVH, septalinfarct age undetermined-abnormal ECG, ventricular rate 103 bpm, PRinterval 178 ms, QRS duration 134 ms, QTc 508 ms us Jose HUFFMAN ECG ORDERABLES Final Re sult Performing Organization Address [facility]/ZIP Co de Phone Number [facility] CLIA [id number] [address] [facility] [address] [place] [address], * TICK-BORNE DISEASE AB PANEL W/REFLEX (12/21/2024 12:24 PM QUICK SERVICE TECHNICIAN) A.PHAGOCYTOPH IGG <1:64 [facility], A.PHAGOCYTOPH IGM <1:20 [facility], ANAPLASMA PHAGOCYTOPHILUM INTERP [facility] [employer]/ [facility], Comment: ANTIBODY NOT DETECTED REFERENCE RANGE: IgG <1:64 IgM <1:20 Anaplasma phagocytophilum is the tick-borne agent causing Human Granulocytic Ehrlichiosis (HGE). HGE is distinct and separate from Human Monocytic Ehrlichiosis (HME), caused by Ehrlichia chaffeensis. Serologic cross-reactivity between A. phagocytophilum and E. Chaffeensis is minimal (5-15%). This test was developed and its analytical performance characteristics have been determined by [employer]. It has not been cleared or approved by [facility]. This assay has been validated pursuant to the CLIA regulations and is used for clinical purposes. BABESIA DUNCANI/WA1 IGG AB <1:256 [facility]/ [facility], Comment: REFERENCE RANGE: <1:256 INTERPRETIVE CRITERIA: <1:256 Antibody not detected > or = 1:256 Antibody detected Babesia duncani, also known as WA1, has been associated with symptoms similar to those caused by Babesia microti. Little, if any, cross-reactivity occurs between Babesia microti and WA1. This test was developed and its analytical performance characteristics have been determined by [employer]. It has not been cleared or approved by FDA. This assay has been validated pursuant to the CLIA regulations and is used for clinical purposes. BABESIA MICROTI IGG AB <1:64 titer [facility]/ [facility], BABESIA MICROTI IGM AB <1:20 titer [facility]/ [facility], BABESIA MICROTI INTERPRETATION [facility]/ [facility], Comment: ANTIBODY NOT DETECTED REFERENCE RANGES: IgG <1:64 IgM <1:20 Elevated antibody levels to B. microti indicate exposure to the organism. Human babesiosis infection is transmitted by the bite of an infected Ixodes tick or less frequently from transfusion with blood from an infected donor. Definitive diagnosis is made by identifying intraerythrocytic organisms in peripheral blood. In patients with low parasitemia, antibody detection by IFA is recommended. IgG levels greater than or equal to 1:1024 can be detected in acute phase patients with parasites in blood smears. The IFA assay can be used as a seroepidemiologic tool to study the frequency and distribution of B. microti in endemic areas especially in persons with mixed infections also involving Borrelia burgdorferi. This test was developed and its analytical performance characteristics have been determined by [employer]. It has not been cleared or approved by FDA. This assay has been validated pursuant to the CLIA regulations and is used for clinical purposes. LYME IGG, IGM AB <0.90 INDEX Que [employer]/ [facility], Comment: REFERENCE RANGE: <0.90 Index Interpretation < 0.90 NEGATIVE 0.90-1.09 EQUIVOCAL > 1.09 POSITIVE As recommended by the Food and Drug Administration (FDA), all samples with positive or equivocal results in a Borrelia burgdorferi antibody screen will be tested using a blot method. Positive or equivocal screening test results should not be interpreted as truly positive until verified as such using a supplemental assay (e.g., B. burgdorferi blot). The screening test and/or blot for B. burgdorferi antibodies may be falsely negative in early stages of Lyme disease, including the period when erythema migrans is apparent. EHRLICHIA CHAFFEENSIS IGG AB <1:64 [facility] [employer]/ [facility], EHRLICHIA CHAFFEENSIS IGM AB <1:20 [facility] [employer]/ [facility], EHRLICHIA CHAFFEENSIS INTERP [facility] [employer]/ [facility], Comment: ANTIBODY NOT DETECTED REFERENCE RANGE: IgG <1:64 IgM <1:20 Ehrlichia chaffeensis has been identified as the causative agent of Human Monocytic Ehrlichiosis (HME). Infected individuals produce specific antibodies to E. chaffeensis that can be detected by an immunofluorescent antibody (IFA) test. Single IgG IFA titers of 1:64 or greater indicate exposure to E. chaffeensis. A four-fold rise in IgG titers between acute and convalescent samples and/or the presence of IgM antibody against E. chaffeensis suggest recent or current infection. This test was developed and its analytical performance characteristics have been determined by [facility]. It has not been cleared or approved by FDA. This assay has been validated pursuant to the CLIA regulations and is used for clinical purposes. FASTING:NO FASTING: NO Test Performed at: [facility] [employer], [address] [place] [address] Jayne López MD,PhD,RADHA Blood 12/21/2024 12:2 4 PM QUICK SERVICE TECHNICIAN 12/21/2024 12:25 PM QUICK SERVICE TECHNICIAN us Virgil Lees NP CHEMISTRY ORDERABLES Final Resu lt [facility] [phone] [facility] [employer], [address] [place] [address] * (ABNORMAL) CBC WITH DIFFERENTIAL (12/21/2024 12:24 PM QUICK SERVICE TECHNICIAN) WBC 6.6 3.8 - 10.8 Thousand/u L [facility] RBC 4.39 3.80 - 5.10 Million/uL [facility] HEMOGLOBIN 12.8 11.7 - 15.5 g/dL [facility] HEMATOCRIT 39.0 35.0 - 45.0 % [facility] MCV 88.8 80.0 - 100.0 fL [facility] MCH 29.2 27.0 - 33.0 pg [facility] MCHC 32.8 32.0 - 36.0 g/dL [facility] Comment: For adults, a slight decrease in the calculated MCHC value (in the range of 30 to 32 g/dL) is most likely not clinically significant; however, it should be interpreted with caution in correlation with other red cell parameters and the patient's clinical condition. RDW 17.5(H) 11.0 - 15.0 % [facility] PLATELETS 198 140 - 400 Thousand/u L [facility] MPV 10.2 7.5 - 12.5 fL [facility] NEUTROPHIL ABSOLUTE 3,828 1,500 - 7,800 cells/uL [facility] LYMPHOCYTE ABSOLUTE 1,762 850 - 3,900 cells/uL [facility] MONOCYTE ABSOLUTE 884 200 - 950 cells/uL [facility] EOSINOPHIL ABSOLUTE 92 15 - 500 cells/uL [facility] BASOPHILS ABSOLUTE 33 0 - 200 cells/uL [facility] NEUTROPHIL 58 % [facility] LYMPHOCYTES 26.7 % [facility] MONOCYTE 13.4 % [facility] EOSINOPHILS 1.4 % [facility] BASOPHILS 0.5 % [facility] Comment: FASTING:NO FASTING: NO Test Performed at: [facility] [address] [place] [address] Olvin Love Blood 12/21/2024 12:2 4 PM QUICK SERVICE TECHNICIAN 12/21/2024 12:25 PM QUICK SERVICE TECHNICIAN us Virgil Lees NP HEMATOLOGY ORDERABLES Final Res ult [facility] [phone] [facility] [address] [place] [address] * (ABNORMAL) COMPREHENSIVE METABOLIC PANEL (12/21/2024 12:24 PM QUICK SERVICE TECHNICIAN) Only the most recent of3 resultswithin the time period is included. GLUCOSE 114 65 - 139 mg/dL [facility] Comment: Non-fasting reference interval BUN 17 7 - 25 mg/dL [facility] CREATININE 1.41(H) 0.60 - 0.95 mg/dL [facility] GFR 36(L) > OR = 60 mL/min/1.7 3m2 [facility] BUN/CREAT RATIO 12 6 - 22 (calc) [facility] SODIUM 140 135 - 146 mmol/L [facility] POTASSIUM 3.9 3.5 - 5.3 mmol/L [facility] CHLORIDE 105 98 - 110 mmol/L [facility] CO2 27 20 - 32 mmol/L [facility] CALCIUM 8.8 8.6 - 10.4 mg/dL [facility] TOTAL PROTEIN 6.1 6.1 - 8.1 g/dL [facility] ALBUMIN 3.6 3.6 - 5.1 g/dL [facility] GLOBULIN 2.5 1.9 - 3.7 g/dL (calc) [facility] ALBUMIN/GLOBULIN RATIO 1.4 1.0 - 2.5 (calc) [facility] BILIRUBIN TOTAL 0.5 0.2 - 1.2 mg/dL [facility] ALKALINE PHOSPHATASE 95 37 - 153 U/L [facility] AST 20 10 - 35 U/L [facility] ALT 14 6 - 29 U/L [facility] Comment: FASTING:NO FASTING: NO Test Performed at: [facility] [address] [place] [address] Olvin Love Blood 12/21/2024 12:2 4 PM QUICK SERVICE TECHNICIAN 12/21/2024 12:25 PM QUICK SERVICE TECHNICIAN us Virgil Lees IN TUBE CONVERSION TECHNICIAN CHEMISTRY ORDERABLES Final Resu lt [facility] [phone] [facility] [address] [place] [address] * DE REM INTERROG PM/LDLS PM <90 D PHYS/QHP, DE REM INTERROG PM/LDLS PM/IDS <90 D TECH [...] 3 months See attached report for details. us Ritesh Chambers MD CARDIAC SERVICES SYED NOE Edited Result - Final INTERFACE SYSTEM Refer to clinic/hospital department * XR DEXA BONE DENSITY AXIAL 1 [...] Insurance [address] [place] [address] MEDICARE PART A AND B [facility] [id number] * Guarantor: JACKLYN SCHULTZ Account Type Relation to Patient Date of Phone Billing Address Personal/Family [address] [place] [address] RX ALLWIN DATA Medicare Part B RX [employer] RX Member Subscriber Plan / Payer (Ef fective 2022-Present) Name:Jacklyn Schultz Relation to Subscriber:Self Name:Jacklyn Schultz Payer ID:Not on file Group ID:[id number] Type:RX Commercial Address: [place] Advance Directives For more information, please contact: [phone] * Full Code (Latest Code Status on [...] 3:20 PM 06/17/2022 5:55 PM Care Teams Senior Administrator Support Relationship Specialty Start Date End Date Eliseo Leigh MD [address] [phone] PCP - General Family Practice 01/30/24
--- OUTSIDE RECORDS SUMMARY | 2025-01-25 11:09 | XMS_ITS | Encounter Summary ---
Author Organization [facility] Address [address] [place] [address] Care Team Providers Care White Sidewall Tire Buffer Name Role Phone Eliseo Leigh MD Primary Care Provider Encounter Details Date Type Department Care Team (Late st Contact Info) Description 03/18/2008 Ancillary Orders [facility] [address] [facility] [address] [place] [address] Eliseo Leigh MD [address] [facility] [address] [place] [address] Screening Mammogram Social History Tobacco Use Types Packs/Day Years Used Date Smoking Tobacco: Never Alcohol Use Standard Drinks/Week Comments No 0 (1 standard drink = 0.6 oz pur e alcohol) Comments No Sex and Gender Information Value Date Recorded Sex Assigned at Not on file Legal Sex Female 3:08 AM SYSTEMS MANAGEMENT CONSULTANT Gender Identity Not on file Sexual [...] mammogram documented in this encounter Care Teams White Sidewall Tire Buffer Relationship Specialty Start Date End Date Eliseo Leigh MD [address] [address] PCP - General 04/15/04 11/30/21 documented as of this encounter
--- OUTSIDE RECORDS SUMMARY | 2025-01-25 11:09 | XMS_ITS | Encounter Summary ---
Author Organization [facility] Address [address] [place] [facility] [place] [address] Care Team Providers Care Forestry Scientist Name Role Phone Eliseo Leigh MD Primary Care Provider [phone] Encounter Details Date Type Department Care Team (Latest Contact Info) Description 05/06/2005 Outpatient Historical [facility] [place] [address] [place] [phone] Demarcus Kline MD NO ADDRESS ON FILE Other Screening Mammogram (Primary Dx) Social History Tobacco Use Types Packs/Day Years Used Date Smoking Tobacco: Never Assessed Comments Unknown Sex and Gender Information Value Date Recorded Sex Assigned at Not on file Legal Sex Female 3:08 AM DRY COLOR MIXER Gender Identity Not on file Sexual Orientation Not on file documented as of this encounter Plan of Treatment Not on file documented as of this encounter Visit Diagnoses Diagnosis Other screening mammogram- Primary documented in this encounter Care Teams Forestry Scientist Relationship Specialty Start Date End Date Eliseo Leigh MD [address] [place] [phone] PCP - General 04/15/04 11/30/21 documented as of this encounter
--- OUTSIDE RECORDS SUMMARY | 2025-01-25 11:09 | XMS_ITS | Encounter Summary ---
Author Organization [facility] Address [address] [facility] [address] [place]ce: Epic Prelude ADT [place] [address] Care Team Providers Care I O Psychologist Name Role Phone Eliseo Leigh MD Primary Care Provider [phone] Encounter Details Date Type Department Care Team (Late st Contact Info) Description 10/04/2000 Outpatient Historical Tony Pollard MD NO ADDRESS ON FILE Social History Tobacco Use Types Packs/Day Years Used Date Smoking Tobacco: Never Assessed Comments Unknown Sex and Gender Information Value Date Recorded Sex Assigned at Not on file Legal Sex Female 3:08 AM DOCTOR OF OPTOMETRY Gender Identity Not on file Sexual Orientation Not on file documented as of this encounter Plan of Treatment Not on file documented as of this encounter Visit Diagnoses Not on filedocumented in this encounter Care Teams I O Psychologist Relationship Specialty Start Date End Date Eliseo Leigh MD [address] [facility] [address] [place] [phone] PCP - General 04/15/04 11/30/21 documented as of this encounter
--- OUTSIDE RECORDS SUMMARY | 2025-01-25 11:09 | XMS_ITS | Encounter Summary ---
Author Organization [facility] Address [address] [place] [address] Care Team Providers Care Catering Barista Name Role Phone Eliseo Leigh MD Primary Care Provider [phone] Encounter Details Date Type Department Care Team (Late st Contact Info) Description 08/08/2000 Outpatient Historical [facility] [address] [place] [address] Yimi Buenrostro MD [facility] [place] [address] Unspecified essential hypertension (Primary Dx); Migraine with [...] on file Legal Sex Female 3:08 AM STATE TROOPER Gender Identity Not on file Sexual Orientation [...] cervix documented in this encounter Care Teams Catering Barista Relationship Specialty Start Date End Date Eliseo Leigh MD [address] [address] PCP - General 04/15/04 11/30/21 documented as of this encounter
--- OUTSIDE RECORDS SUMMARY | 2025-01-25 11:09 | XMS_ITS | Encounter Summary ---
Author Organization [facility] Address [address] [place] [address] Care Team Providers Care Craft Coordinator Name Role Phone Eliseo Leigh MD Primary Care Provider [phone] Encounter Details Date Type Department Care Team (Latest Contact Info) Description 08/06/2005 Outpatient Historical [facility] [address] [place] [address] Adam Jimenez MD [address] [place] [address] Mechanical Ptosis (Primary Dx) Social History Tobacco Use Types Packs/Day Years Used Date Smoking Tobacco: Never Assessed Comments Unknown Sex and Gender Information Value Date Recorded Sex Assigned at Not on file Legal Sex Female 3:08 AM YARDAGE CONTROL CLERK Gender Identity Not on file Sexual Orientation Not on file documented as of this encounter Plan of Treatment Not on file documented as of this encounter Visit Diagnoses Diagnosis Mechanical ptosis- Primary documented in this encounter Care Teams Craft Coordinator Relationship Specialty Start Date End Date Eliseo Leigh MD [address] [place] [phone] PCP - General 04/15/04 11/30/21 documented as of this encounter
--- OUTSIDE RECORDS SUMMARY | 2025-01-25 11:09 | XMS_ITS | Encounter Summary ---
Author Organization [facility] Address [address] [place] [address] Care Team Providers Care Athletic Events Scorer Name Role Phone Eliseo Leigh MD Primary Care Provider [phone] Encounter Details Date Type Department Care Team (Latest Contact Info) Description 08/11/2001 Outpatient Historical [facility] [place] [address] [place] [address] Dennys Hudson MD [address] [place] [address] HYPERTENSION NOS (Primary Dx); HYPOTHYROIDISM NOS; OSTEOPOROSIS NOS Social History Tobacco Use Types Packs/Day Years Used Date Smoking Tobacco: Never Assessed Comments Unknown Sex and Gender Information Value Date Recorded Sex Assigned at Not on file Legal Sex Female 3:08 AM AUTO HIKER Gender Identity Not on file Sexual Orientation Not on file documented as of this encounter Plan of Treatment Not on file documented as of this encounter Visit Diagnoses Diagnosis Unspecified essential hypertension- Primary Unspecified hypothyroidism Osteoporosis, unspecified documented in this encounter Care Teams Athletic Events Scorer Relationship Specialty Start Date End Date Eliseo Leigh MD [address] [place] [address] PCP - General 04/15/04 11/30/21 documented as of this encounter
--- OUTSIDE RECORDS SUMMARY | 2025-01-25 11:09 | XMS_ITS | Encounter Summary ---
Author Organization [facility] Address [address] [place] [address] Care Team Providers Care Oven Laborer Name Role Phone Eliseo Leigh MD Primary Care Provider Encounter Details Date Type Department Care Team (Latest Contact Info) Description 04/15/2004 Outpatient Historical [facility] [address] [place] [address] Eliseo Leigh MD [address] [place] [address] JOINT EFFUSION-L/LEG (Primary Dx) Social History Tobacco Use Types Packs/Day Years Used Date Smoking Tobacco: Never Assessed Comments Unknown Sex and Gender Information Value Date Recorded Sex Assigned at Not on file Legal Sex Female 3:08 AM ORACLE WEBCENTER CONSULTANT Gender Identity Not on file Sexual Orientation Not on file documented as of this encounter Plan of Treatment Not on file documented as of this encounter Visit Diagnoses Diagnosis Effusion of lower leg joint- Primary documented in this encounter Care Teams Oven Laborer Relationship Specialty Start Date End Date Eliseo Leigh MD [address] [place] [address] PCP - General 04/15/04 11/30/21 documented as of this encounter
--- OUTSIDE RECORDS SUMMARY | 2025-01-25 11:09 | XMS_ITS | Encounter Summary ---
Author Organization [facility] Address [address] [place] [address] Care Team Providers Care Litigation Specialist Name Role Phone Eliseo Leigh MD Primary Care Provider [phone] Encounter Details Date Type Department Care Team (Late st Contact Info) Description 11/18/2008 Ancillary Orders [facility] [place] [address] [place] [address] Eliseo Leigh MD [address] [place] [address] Undiagnosed Cardiac Murmurs; Chest Pain Social History Tobacco Use Types Packs/Day Years Used Date Smoking Tobacco: Never Alcohol Use Standard Drinks/Week Comments No 0 (1 standard drink = 0.6 oz pur e alcohol) Comments No Sex and Gender Information Value Date Recorded Sex Assigned at Not on file Legal Sex Female 3:08 AM MACHINE CLERICAL VERIFIER Gender Identity Not on file Sexual Orientation [...] INTERFACE SYSTEM - 11/18/2008 3:41 PM CDT [facility] [address] [facility] [address] [place] [address] Transthoracic Echocardiogram Patient: Jacklyn Schultz Study ID: ECHO PRE TEST Gender: F : 1940 Age: 67 years Location: Room: Height: 66 in ( 168 cm ) Study date: November 18, 2008 Patient status: Weight: 168.65 lb ( 76.66 kg ) Study time: 10: 4 BSA: 1.86 m^2 Referring MD: Lu Gomes [id number] R Performing MD: Madhuri Chambers MD Boathouse Keeper: Mayda Stephenson Ordering: Eliseo Leigh Referring MD: [...] RV systolic pressure 37 mmHg <30 mmHg [facility] is accredited with the Intersocietal Commission for the Accreditation of Echocardiography Laboratories (ICAEL) Prepared and Electronically Authenticated Madhuri Chambers MD Confirmed November 18, 2008 15:41:01 Procedure Note Ebony Chambers MD - 2008 [facility] - Cardiology [address] [facility] [address] [place] [address] Transthoracic Echocardiogram Patient: Jacklyn Schultz Study ID: ECHO PRE TEST Gender: F : 1940 Age: 67 years Location: Room: Height: 66 in ( 168 cm ) Study date: November 18, 2008 Patient status: Weight: 168.65 lb ( 76.66 kg ) Study time: 10: 4 BSA: 1.86 m^2 Referring MD: Lu Gomes [id number] Kaleb Mcgrath MD: Madhuri Chambers MD Boathouse Keeper: Mayda Stephenson Ordering: Eliseo Robles MD: Eliseo [...] RV systolic pressure 37 mmHg <30 mmHg [facility] is accredited with the Intersocietal Commission forthe Accreditation of Echocardiography Laboratories (ICAEL) Prepared and Electronically Authenticated Madhuri Chambers MD Confirmed November 18, 2008 15:41:01 us Eliseo Leigh MD ORDERABLES Edited INTERFACE SYSTEM Refer to clinic/hospital department documented in this encounter Visit Diagnoses Diagnosis Undiagnosed cardiac murmurs Chest pain Chest pain, unspecified documented in this encounter Care Teams Litigation Specialist Relationship Specialty Start Date End Date Eliseo Leigh MD [address] [phone] PCP - General 04/15/04 11/30/21 documented as of this encounter
--- OUTSIDE RECORDS SUMMARY | 2025-01-25 11:09 | XMS_ITS ---
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
--- OUTSIDE RECORDS SUMMARY | 2025-01-25 11:09 | XMS_ITS | Encounter Summary ---
Author Organization [facility] Address [address] [place] [address] Care Team Providers Care Lehr Cutter Name Role Phone Eliseo Leigh MD Primary Care Provider [phone] Reason for Referral * Radiology Services (Routine) - Closed Specialty Diagnoses / Procedures Referred By Contac t Referred To Contact Radiology Diagnoses Encounter for screening mammogram for malignant neoplasm of breast Procedures MAMMO SCRN BILAT 3D OLEG W OR WO CAD Elisoe Leigh MD [address] [facility] [address] [place] [address] Phone: tel: fax: [facility] [place] [address] [facility] [address] [place] [address] Phone: tel: fax: Referral ID Status Reason Start Date Expiration Date Visits Re quested Visits Authorized [id number] Closed 11/21/2017 12/22/2018 1 1 Encounter Details Date Type Department Care Team (Latest Contact Info) Description 11/21/2017 Ancillary Orders [facility] Pre-Registration [place] CALL TO MAKE APPOINTMENT ONLY [address] [place] [address] Eliseo Leigh MD [address] [phone] Encounter for screening mammogram for malignant neoplasm of breast Social History Tobacco Use Types Packs/Day Years Used Date Smoking Tobacco: Never Smokeless Tobacco: Never Alcohol Use Standard Drinks/Week Comments No 0 (1 standard drink = 0.6 oz pur e alcohol) Comments No Sex and Gender Information Value Date Recorded Sex Assigned at Not on file Legal Sex Female 3:08 AM WHITEWASHER Gender Identity Not on file Sexual Orientation [...] W OR WO CAD (02/02/2018 2:41 PM WHITEWASHER) Anatomical Region Laterality Modality Breast Bilateral Mammography Narrative 02/08/2018 10:23 AM WHITEWASHER Bilateral Digital Mammogram with CAD and 3D [...] mammogram documented in this encounter Care Teams Lehr Cutter Relationship Specialty Start Date End Date Eliseo Leigh MD [address] [address] PCP - General 04/15/04 11/30/21 documented as of this encounter
--- OUTSIDE RECORDS SUMMARY | 2025-01-25 11:09 | XMS_ITS | Encounter Summary ---
Author Organization [facility] Address [address] [place] [address] Care Team Providers Care Pattern Fitter Name Role Phone Eliseo Leigh MD Primary Care Provider [phone] Reason for Referral * Outpatient Services (Routine) - Closed Specialty Diagnoses / Procedures Referred By Contmegha t Referred To Contact Diagnoses Other screening mammogram Procedures MAMMO DIGITAL SCREEN BILAT Eliseo Leigh MD [address] [address] Phone: tel: fax: [facility] Pre-Registration [place] CALL TO MAKE APPOINTMENT ONLY [address] [place] [address] Phone: tel: fax: Referral ID Status Reason Start Date Expiration Date Visits Re quested Visits Authorized [id number] Closed 07/02/2011 07/01/2012 1 1 Encounter Details Date Type Department Care Team (Latest Contact Info) Description 07/02/2011 Ancillary Orders [facility] Pre-Registration [place] CALL TO MAKE APPOINTMENT ONLY [address] [place] [address] Eliseo Leigh MD [address] [place] [address] Other screening mammogram Social History Tobacco Use Types Packs/Day Years Used Date Smoking Tobacco: Never Smokeless Tobacco: Never Alcohol Use Standard Drinks/Week Comments No 0 (1 standard drink = 0.6 oz pur e alcohol) Comments No Sex and Gender Information Value Date Recorded Sex Assigned at Not on file Legal Sex Female 3:08 AM SURGERY TECH Gender Identity Not on file Sexual [...] mammogram documented in this encounter Care Teams Pattern Fitter Relationship Specialty Start Date End Date Eliseo Leigh MD [address] [facility] [address] [place] [address] PCP - General 04/15/04 11/30/21 documented as of this encounter
--- OUTSIDE RECORDS SUMMARY | 2025-01-25 11:09 | XMS_ITS | Encounter Summary ---
Author Organization [facility] Address [address] [place] [address] Care Team Providers Care Rn Sane Name Role Phone Eliseo Leigh MD Primary Care Provider [phone] Encounter Details Date Type Department Care Team (Latest Contact Info) Description 09/11/2013 Ancillary Orders [facility] Pre-Registration [place] CALL TO MAKE APPOINTMENT ONLY [address] [place] [address] Eliseo Leigh MD [address] [address] Other screening mammogram (Primary Dx) Social History Tobacco Use Types Packs/Day Years Used Date Smoking Tobacco: Never Smokeless Tobacco: Never Alcohol Use Standard Drinks/Week Comments No 0 (1 standard drink = 0.6 oz pur e alcohol) Comments No Sex and Gender Information Value Date Recorded Sex Assigned at Not on file Legal Sex Female 3:08 AM SOX ANALYST Gender Identity Not on file Sexual [...] mammogram documented in this encounter Care Teams Rn Sane Relationship Specialty Start Date End Date Eliseo Leigh MD [address] [phone] PCP - General 04/15/04 11/30/21 documented as of this encounter
--- OUTSIDE RECORDS SUMMARY | 2025-01-25 11:09 | XMS_ITS | Encounter Summary ---
Author Organization [facility] Address [address] [place] [address] Care Team Providers Care Production Sound Mixer Name Role Phone Eliseo Leigh MD Primary Care Provider [phone] Reason for Referral * Outpatient Services (Routine) - Closed Specialty Diagnoses / Procedures Referred By Michael t Referred To Contact Diagnoses Other screening mammogram Procedures MAMMO DIGITAL SCREEN BILAT Eliseo Leigh MD [address] [address] Phone: tel: fax: Referral ID Status Reason Start Date Expiration Date Visits Re quested Visits Authorized [id number] Closed 08/07/2013 09/07/2014 1 1 Encounter Details Date Type Department Care Team (Latest Contact Info) Description 08/07/2013 Ancillary Orders [facility] Pre-Registration Carnation CALL TO MAKE APPOINTMENT ONLY [address] [place] [address] Eliseo Leigh MD [address] [address] Other screening mammogram (Primary Dx) Social History Tobacco Use Types Packs/Day Years Used Date Smoking Tobacco: Never Smokeless Tobacco: Never Alcohol Use Standard Drinks/Week Comments No 0 (1 standard drink = 0.6 oz pur e alcohol) Comments No Sex and Gender Information Value Date Recorded Sex Assigned at Not on file Legal Sex Female 3:08 AM LAB SPECIALIST Gender Identity Not on file Sexual [...] mammogram documented in this encounter Care Teams Production Sound Mixer Relationship Specialty Start Date End Date Eliseo Leigh MD [address] [phone] PCP - General 04/15/04 11/30/21 documented as of this encounter
--- OUTSIDE RECORDS SUMMARY | 2025-01-25 11:09 | XMS_ITS | Encounter Summary ---
Author Organization [facility] Address [address] [place] [facility] [place] [address] Care Team Providers Care Metal Sander Name Role Phone Eliseo Leigh MD Primary Care Provider [phone] Encounter Details Date Type Department Care Team (Latest Contact Info) Description 06/06/2001 Outpatient Historical [facility] Dermatology- [facility] [place] [address] [place] [phone] Mckay Evangelista MD NO ADDRESS ON FILE SEBORRHEIC KERATOSIS NOS (Primary Dx) Social History Tobacco Use Types Packs/Day Years Used Date Smoking Tobacco: Never Assessed Comments Unknown Sex and Gender Information Value Date Recorded Sex Assigned at Not on file Legal Sex Female 3:08 AM FRONTEND ENGINEER Gender Identity Not on file Sexual Orientation Not on file documented as of this encounter Plan of Treatment Not on file documented as of this encounter Visit Diagnoses Diagnosis Other seborrheic keratosis- Primary documented in this encounter Care Teams Metal Sander Relationship Specialty Start Date End Date Eliseo Leigh MD [address] [place] [phone] PCP - General 04/15/04 11/30/21 documented as of this encounter
--- OUTSIDE RECORDS SUMMARY | 2025-01-25 11:09 | XMS_ITS | Encounter Summary ---
Author Organization [facility] Address [address] [place] [address] Care Team Providers Care Marketing Coordinator Name Role Phone Eliseo Leigh MD Primary Care Provider [phone] Encounter Details Date Type Department Care Team (Late st Contact Info) Description 01/08/2002 Outpatient Historical [facility] [address] [place] [address] Russell Peres MD NO ADDRESS ON FILE Social History Tobacco Use Types Packs/Day Years Used Date Smoking Tobacco: Never Assessed Comments Unknown Sex and Gender Information Value Date Recorded Sex Assigned at Not on file Legal Sex Female 3:08 AM INNOVATION ANALYST Gender Identity Not on file Sexual Orientation Not on file documented as of this encounter Plan of Treatment Not on file documented as of this encounter Visit Diagnoses Not on filedocumented in this encounter Care Teams Marketing Coordinator Relationship Specialty Start Date End Date Eliseo Leigh MD [address] [phone] PCP - General 04/15/04 11/30/21 documented as of this encounter
--- OUTSIDE RECORDS SUMMARY | 2025-01-25 11:10 | XMS_ITS | Encounter Summary ---
Author Organization [facility] Address [address] [place] [address] Care Team Providers Care Head Waiter/Waitress Banquet Name Role Phone Eliseo Leigh MD Primary Care Provider [phone] Encounter Details Date Type Department Care Team (Late st Contact Info) Description 02/09/2007 Outpatient Historical [facility] Orthopedics- [address] [place] [place] [address] [place] [address] Tony Pollard MD NO ADDRESS ON FILE Social History Tobacco Use Types Packs/Day Years Used Date Smoking Tobacco: Never Assessed Comments Unknown Sex and Gender Information Value Date Recorded Sex Assigned at Not on file Legal Sex Female 3:08 AM NURSE SUBSTANCE ABUSE Gender Identity Not on file Sexual Orientation Not on file documented as of this encounter Plan of Treatment Not on file documented as of this encounter Visit Diagnoses Not on filedocumented in this encounter Care Teams Head Waiter/Waitress Banquet Relationship Specialty Start Date End Date Eliseo Leigh MD [address] [phone] PCP - General 04/15/04 11/30/21 documented as of this encounter
--- OUTSIDE RECORDS SUMMARY | 2025-01-25 11:10 | XMS_ITS | Encounter Summary ---
Author Organization [facility] Address [address] [place] [address] Care Team Providers Care Retail Associate Manager Bilingual Name Role Phone Eliseo Leigh MD Primary Care Provider [phone] Encounter Details Date Type Department Care Team (Late st Contact Info) Description 03/02/2007 Outpatient Historical [facility] Orthopedics- [address] [place] [address] Tony Pollard MD NO ADDRESS ON FILE Social History Tobacco Use Types Packs/Day Years Used Date Smoking Tobacco: Never Assessed Comments No Sex and Gender Information Value Date Recorded Sex Assigned at Not on file Legal Sex Female 3:08 AM AGRICULTURAL EQUIPMENT DESIGN ENGINEER Gender Identity Not on file Sexual Orientation Not on file documented as of this encounter Plan of Treatment Not on file documented as of this encounter Visit Diagnoses Not on filedocumented in this encounter Care Teams Retail Associate Manager Bilingual Relationship Specialty Start Date End Date Eliseo Leigh MD [address] [phone] PCP - General 04/15/04 11/30/21 documented as of this encounter
--- OUTSIDE RECORDS SUMMARY | 2025-01-25 11:10 | XMS_ITS | Clinical Summary ---
Author Organization [facility] Address [address] [address] Care Team Providers Care Corncob Pipe Manufacturing Supervisor Name Role Phone Eliseo Leigh MD Primary Care Provider [phone] Allergies Active Allergy Reactions Criticality Noted Date [...] morning. Active cholecalciferol (VITAMIN D-3) 1.25 MG (00539 UT) capsule Take 50,000 Units by mouth [...] morning and in the evening. 5 Active leflunomide (ARAVA) 20 MG tablet Take 20 mg by mouth 1 (one) time each day Active pilocarpine (SALAGEN) 5 MG tablet Take 5 mg by mouth in the morning and 5 mg in the evening and 5 mg before bedtime. Active Active Problems Problem Noted Date Diagnosed Date Essential hypertension 12/26/2024 Gastroesophageal reflux disease 12/26/2024 History of cerebrovascular accident 12/26/2024 Recurrent major depression in partial remission 12/26/2024 Chronic diastolic heart failure 06/22/2022 History of aortic valve replacement 12/06/2019 Paroxysmal atrial fibrillation 11/06/2017 Atrophy of thyroid - acquired 11/13/2015 Cardiac pacemaker in situ 10/08/2014 Encounters Date Type Department Care Team Description 12/28/2024 Documentation Only [facility] [address] [place] [address] Celina Moreno MA 12/27/2024 2:00 PM STOCK HANDLER Office Visit [facility] [address] [place], [place] [address] Gale Brown CNP Chronic kidney disease stage 3B (HCC) (Primary Dx); Chronic diastolic heart failure (HCC); Essential hypertension; Paroxysmal atrial fibrillation (HCC); History of cerebrovascular accident 12/27/2024 Documentation Only [facility] [address] [place] [address] Celia Rudd from Last 3 Months Immunizations Immunization Administration Dates Next Due Influenza [...] Sign Reading Time Taken Comments Blood Pressure 118/74 12/27/2024 2:23 PM STOCK HANDLER Pulse 86 12/27/2024 2:23 PM STOCK HANDLER Temperature - - Respiratory Rate - - Oxygen Saturation 96% 12/27/2024 2:23 PM STOCK HANDLER Inhaled Oxygen Concentration - - Weight 59.9 kg (132 lb) 12/27/2024 2:23 PM STOCK HANDLER Height 160 cm (5' 3 ) 12/27/2024 2:23 PM STOCK HANDLER Body Mass Index 23.38 12/27/2024 2:23 PM STOCK HANDLER Plan of Treatment Upcoming Encounters Date Type Department Care Team (Late st Contact Info) Description 05/02/2025 11:30 AM CDT Office Visit [facility] [address] [place] [address] Ellen Vela NP [address] [facility] [address] [place] [address] Health Maintenance Due Date Last Done Comments Pneumococcal Vaccine: 50+ Years Completed 10/30/2019, 03/21/2014, 03/12/2008, Additional history exists Influenza Vaccine Completed 12/12/2024, , 10/30/2019, Additional history exists Hepatitis B Vaccine Aged Out No longe r eligible based on patient's age to complete this topic Procedures Procedure Name Priority Date/Time Associated Diagnosis Comments CBC (INCLUDES DIFF/PLT) (EXTERNAL LAB ENTRY) Routine 12/21/2024 12:24 PM STOCK HANDLER COMPREHENSIVE METABOLIC PANEL (CMP) (EXTERNAL LAB ENTRY) Routine 12/21/2024 12:24 PM STOCK HANDLER from Last 3 Months Results * Comprehensive Metabolic Panel (CMP) (12/21/2024 12:24 PM STOCK HANDLER) Glucose 114 mg/dL BUN 17 mg/dL Creatinine 1.41 mg/dL Sodium 140 mEq/L Potassium 3.9 mEq/L Chloride 105 Carbon Dioxide 27 mmol/L Calcium 8.8 mg/dL Albumin (Blood) 3.6 g/dL AST (SGOT) 20 U/L ALT (SGPT) 14 U/L Alkaline Phosphatase 95 U/L Total Bilirubin 0.50 MG/DL eGFR Non-Afr Iraqi 36 Total Protein, Serum 6.1 Globulin, Total 2.5 g/dL A/G Ratio 1.4 Blood 12/21/2024 12:2 4 PM STOCK HANDLER [facility] External Provider LAB BLOOD ORDERABLES Final Result * CBC (Includes Diff/Plt) (External Lab) (12/21/2024 12:24 PM STOCK HANDLER) WBC 6.6 K/uL Red Blood Cell Count 4.39 Hemoglobin 12.8 g/dL Hematocrit 39 % MCV 88.8 MCH 29.2 MCHC 32.8 RDW 17.5 Platelet Count 198 MPV 10.2 Absolute Neutrophils 3,828 Absolute Lymphocytes 1,762 Absolute Monocytes 884 Absolute Eosinophils 92 Absolute Basophils 33 Neutrophils 58 K/uL Lymphocytes 26.7 Monocytes 13.4 Eosinophils 1.4 Basophils 0.5 Blood 12/21/2024 12:2 4 PM STOCK HANDLER [facility] External Provider LAB BLOOD ORDERABLES Final Result from Last 3 Months Insurance Medicare [facility] Care Teams Corncob Pipe Manufacturing Supervisor Relationship Specialty Start Date End Date Eliseo Leigh MD [address] [phone] PCP - General Family Medicine 05/24/24
--- OUTSIDE RECORDS SUMMARY | 2025-01-25 11:10 | XMS_ITS | Encounter Summary ---
Author Organization [facility] Address [address] [place] [address] Care Team Providers Care Rocket Test Fire Worker Name Role Phone Eliseo Leigh MD Primary Care Provider [phone] Encounter Details Date Type Department Care Team (Latest Contact Info) Description 04/06/2006 Outpatient Historical [facility] [place] [address] [place] [address] Eliseo Leigh MD [address] [place] [address] Plantar Fibromatosis (Primary Dx); Unspecified Essential Hypertension; Fluid Overload; Other and Unspecified Hyperlipidemia Social History Tobacco Use Types Packs/Day Years Used Date Smoking Tobacco: Never Assessed Comments Unknown Sex and Gender Information Value Date Recorded Sex Assigned at Not on file Legal Sex Female 3:08 AM CHARGING OPERATOR Gender Identity Not on file Sexual Orientation Not on file documented as of this encounter Plan of Treatment Not on file documented as of this encounter Visit Diagnoses Diagnosis Plantar fibromatosis- Primary Plantar fascial fibromatosis Unspecified essential hypertension Fluid overload Other and unspecified hyperlipidemia documented in this encounter Care Teams Rocket Test Fire Worker Relationship Specialty Start Date End Date Eliseo Leigh MD [address] [place] [address] PCP - General 04/15/04 11/30/21 documented as of this encounter
--- OUTSIDE RECORDS SUMMARY | 2025-01-25 11:10 | XMS_ITS | Encounter Summary ---
Author Organization [facility] Address [address] [place] [address] Care Team Providers Care Forensic Ballistics Expert Name Role Phone Eliseo Leigh MD Primary Care Provider [phone] Encounter Details Date Type Department Care Team (Latest Contact Info) Description 03/27/1999 [facility]patient [facility] [address] [place] [address] Allan Aquino MD [address] [facility] [address] [place] [address] Pain in limb (Primary Dx) Social History Tobacco Use Types Packs/Day Years Used Date Smoking Tobacco: Never Assessed Comments Unknown Sex and Gender Information Value Date Recorded Sex Assigned at Not on file Legal Sex Female 3:08 AM REPLENISHER Gender Identity Not on file Sexual Orientation Not on file documented as of this encounter Plan of Treatment Not on file documented as of this encounter Visit Diagnoses Diagnosis Pain in limb- Primary Pain in soft tissues of limb documented in this encounter Care Teams Forensic Ballistics Expert Relationship Specialty Start Date End Date Eliseo Leigh MD [address] [facility] [address] [place] [address] PCP - General 3/9/05 10/24/22 documented as of this encounter
--- OUTSIDE RECORDS SUMMARY | 2025-01-25 11:10 | XMS_ITS | Encounter Summary ---
Author Organization [facility] Address [address] [place] [address] Care Team Providers Care Relay Shop Tester Name Role Phone Eliseo Leigh MD Primary Care Provider [phone] Encounter Details Date Type Department Care Team (Late st Contact Info) Description 11/03/2006 Outpatient Historical [facility] [address] [place] [address] Alaina Tony MD [address] [place] [address] Follow-Up Examination, Following Unspecified Surgery (Primary Dx); Decreased Libido Social History Tobacco Use Types Packs/Day Years Used Date Smoking Tobacco: Never Assessed Comments Unknown Sex and Gender Information Value Date Recorded Sex Assigned at Not on file Legal Sex Female 3:08 AM CLINICAL SPECIALTY REP Gender Identity Not on file Sexual Orientation Not on file documented as of this encounter Plan of Treatment Not on file documented as of this encounter Visit Diagnoses Diagnosis Follow-up examination, following unspecified surgery- Primary Decreased libido documented in this encounter Care Teams Relay Shop Tester Relationship Specialty Start Date End Date Eliseo Leigh MD [address] [place] [address] PCP - General 04/15/04 11/30/21 documented as of this encounter
--- OUTSIDE RECORDS SUMMARY | 2025-01-25 11:10 | XMS_ITS | Encounter Summary ---
Author Organization [facility] Address [address] [place] [address] Care Team Providers Care Industrial Engineer Name Role Phone Eliseo Leigh MD Primary Care Provider [phone] Encounter Details Date Type Department Care Team (Latest Contact Info) Description 01/18/2006 Outpatient Historical [facility] Echocardiography - [place] [address] [place] [address] [address] Taran Porter MD NO ADDRESS ON FILE Aortic Valve Disorder (Primary Dx); Undiagnosed Cardiac Murmurs Social History Tobacco Use Types Packs/Day Years Used Date Smoking Tobacco: Never Assessed Comments Unknown Sex and Gender Information Value Date Recorded Sex Assigned at Not on file Legal Sex Female 3:08 AM HEARING CARE PROFESSIONAL Gender Identity Not on file Sexual Orientation Not on file documented as of this encounter Plan of Treatment Not on file documented as of this encounter Visit Diagnoses Diagnosis Aortic valve disorder- Primary Aortic valve disorders Undiagnosed cardiac murmurs documented in this encounter Care Teams Industrial Engineer Relationship Specialty Start Date End Date Eliseo Leigh MD [address] [phone] PCP - General 04/15/04 11/30/21 documented as of this encounter
--- OUTSIDE RECORDS SUMMARY | 2025-01-25 11:10 | XMS_ITS | Encounter Summary ---
Author Organization [facility] Address [address] [facility] [place] [address] Care Team Providers Care Chemicals Fermentation Operator Name Role Phone Eliseo Leigh MD Primary Care Provider [phone] Encounter Details Date Type Department Care Team (Latest Contact Info) Description 11/10/1998 Outpatient Historical [facility] Dermatology- [facility] [place] [address] [place] [address] Mckay Evangelista MD NO ADDRESS ON FILE Actinic keratosis (Primary Dx); Dermatophytosis of nail; Other seborrheic keratosis Social History Tobacco Use Types Packs/Day Years Used Date Smoking Tobacco: Never Assessed Comments Unknown Sex and Gender Information Value Date Recorded Sex Assigned at Not on file Legal Sex Female 3:08 AM AUXILIARY ENGINEER Gender Identity Not on file Sexual Orientation Not on file documented as of this encounter Plan of Treatment Not on file documented as of this encounter Visit Diagnoses Diagnosis Actinic keratosis- Primary Dermatophytosis of nail Other seborrheic keratosis documented in this encounter Care Teams Chemicals Fermentation Operator Relationship Specialty Start Date End Date Eliseo Leigh MD [address] [place] [phone] PCP - General 04/15/04 11/30/21 documented as of this encounter
--- OUTSIDE RECORDS SUMMARY | 2025-01-25 11:10 | XMS_ITS | Encounter Summary ---
Author Organization [facility] Address [address] [place] [address] Care Team Providers Care Manager Research Development Name Role Phone Eliseo Leigh MD Primary Care Provider [phone] Encounter Details Date Type Department Care Team (Late st Contact Info) Description 05/01/2007 Outpatient Historical [facility] [place] [address] [place] [address] Eliseo Leigh MD [address] [phone] Social History Tobacco Use Types Packs/Day Years Used Date Smoking Tobacco: Never Assessed Comments No Sex and Gender Information Value Date Recorded Sex Assigned at Not on file Legal Sex Female 3:08 AM VASCULAR RADIOLOGIST Gender Identity Not on file Sexual Orientation Not on file documented as of this encounter Plan of Treatment Not on file documented as of this encounter Visit Diagnoses Not on filedocumented in this encounter Care Teams Manager Research Development Relationship Specialty Start Date End Date Eliseo Leigh MD [address] [phone] PCP - General 04/15/04 11/30/21 documented as of this encounter
--- OUTSIDE RECORDS SUMMARY | 2025-01-25 11:10 | XMS_ITS | Clinical Summary ---
Author Organization [facility] tone Address [address] [place] [address] Care Team Providers Care Implementation Specialist Name Role Phone Unavailable Primary Care Provider Unavailabl e Allergies Active Allergy Reactions Criticality Noted Date Comments Homar Inhibitors Unknown Codeine Headache Low Ezetimibe Unknown Njdfloj-Htb-Dii Reductase Inhibitors Muscle Pain,Weakness Low Medications calcium-vitami [...] on file Legal Sex Female 3:08 AM ARBORER Gender Identity Not on file Sexual Orientation [...] history exists Medical Devices Implanted Type Area Topographic Computator Device Identifier Shelf Expiration Date Model / Serial / Lot Log [id number] - Cement - 1 - Simplex W/Tobra 6197-9-001 Implanted:Qty: 1 on 11/16/2010 at [facility] Cement Right: Knee LAURIE- [employer] 05/08/2012 6197-9-0 01 / / [id number] Simplex W/Tobra 6197-9-001 - Sna Implanted:Qty: 2 on 03/01/2011 at [facility] Cement Left: Knee [employer] 09/29/2012 6197-9-0 01 / NA / [id number] Cement Activos W/Judd C10a Implanted:02/2014 by Scott Posadas MD (Quantity not on file) Cement Vertebrae [employer] - SPINAL fka KYPHON 10/07/2016 C10A / / [id number] Description:T12 Kyphoplasty Lens Io Tecnis 1pc 22 [id number] - [id number] Implanted:Qty: 1 on 05/24/2013 by Angel Muse MD at [facility] Left: Eye [employer] 01/23/2017 [id number] / [id number] / Log [id number] - Bard Patches, Pledgets, Jonelle, Fabrics - 1 - [place] Ptfe Thck 1.6mmx2.5x2.5c m [id number] Implanted:Qty: 1 on 12/18/2008 at [facility] Graft CR BARD- JOHNNIE VASC INC 01/07/2013 [id number] / / [id number] Log 88730 - Bard Patches, Pledgets, Jonelle, Fabrics - 2 - [place] Ptfe Thck 1.6mmx2.5x2.5c m [id number] Implanted:Qty: 1 on 12/18/2008 at [facility] Graft CR BARD- JOHNNIE VASC INC 07/08/2013 [id number] / / [id number] Log [id number] - Laurie Total Knee - 1 - Insert Tib Trthln X3 Cs 5531-G-411 Implanted:Qty: 1 on 11/16/2010 at [facility] Knee Right: Knee [employer] 08/08/2015 5531-G-4 11 / / [id number] Log [id number] - Laurie Total Knee - 1 - Comp Fem Trthln Cr Sz4 Rt 5510-F-402 Implanted:Qty: 1 on 11/16/2010 at [facility] Knee Right: Knee [employer] 07/09/2015 5510-F-4 02 / / [id number] Log [id number] - Laurie Total Knee - 1 - Patella Trthln Sym X3 5550-G-339 Implanted:Qty: 1 on 11/16/2010 at [facility] Knee Right: Knee LAURIE- HOWMEDICA INT INC 08/08/2015 5550-G-3 39 / / [id number] Log [id number] - [place] Total Knee - 1 - Comp Tib Triathlon Cmnt 5520-B-400 Implanted:Qty: 1 on 11/16/2010 at [facility] Knee Right: Knee [employer] 09/08/2015 5520-B-4 00 / / [id number] Comp Tib Triathlon Cmnt 5520-B-400 - Sna Implanted:Qty: 1 on 03/01/2011 at [facility] Knee Left: Knee [employer] 01/30/2016 5520-B-4 00 / NA / GMON Comp Fem Trthln Cr Sz5 Lt 5510-F-501 - Sna Implanted:Qty: 1 on 03/01/2011 at [facility] Knee Left: Knee [employer] 01/29/2015 5510-F-5 01 / NA / SYRCK Patella Trthln Sym Poly 5550-L-339 - Sna Implanted:Qty: 1 on 03/01/2011 at [facility] Knee Left: Knee LAURIE- HOWMED[employer] INT INC 10/31/2015 5550-L-3 39 / NA / [id number] Ins Tib Triathlon Sz4 11mm 5531-P-411 - Sna Implanted:Qty: 1 on 03/01/2011 at [facility] Knee Left: Knee [employer] 09/30/2015 5531-P-4 11 / NA / [id number] Pacemaker [place] Xt Surescan [id number] Pacemaker [employer]- CRM - BULK BUY [id number] 11/21/2019 W1DR01 / [id number] 3H / Pin Headless Fltd 02/14 [id number] Implanted:Qty: 1 on 11/16/2010 at [facility] Pin [employer] 7650-203 8A / / Description:moved down from [facility] list- Implant Type-TS [id number] - [id number] Implanted:Qty: 1 on 12/18/2008 at [facility] Heart 05/08/2013 LXA25 / [id number] / Description:SorinGroup Mitro flow Aortic Heart Valve (size 25mm) Procedures Procedure Name Priority Date/Time Associated Diagnosis Comments XR DEXA BONE DENSITY AXIAL 1 OR MORE SITES Routine 09/02/2014 1:04 PM CDT Menopausal disorder ENDOSCOPY, COLON, SCREENING Routine 03/15/2012 9:17 AM ARBORER Screening for colon cancer from Last 3 [...] Insurance [address] [place] [address] MEDICARE PART A AND B [employer] RR [address] [place] [address] RX [employer] RX Member Subscriber Plan / Payer (Ef fective 2015-Present) Name:Jacklyn Schultz Relation to Subscriber:Self Name:Jacklyn Schultz Payer ID:Not on file Group ID:[id number] Type:RX Medicare Part D Address: [address] [place] Medicare Part B Advance Directives For more information, please contact: [phone] Documents on File Type Date Recorded Patient Noise Abatement Engineer Expl anation Advance Directive Living Will 05/23/2013 [...]
--- OUTSIDE RECORDS SUMMARY | 2025-01-25 11:10 | XMS_ITS | Encounter Summary ---
Author Organization [facility] Address [address] [place] [address] Care Team Providers Care Family Welfare Social Work Professor Name Role Phone Eliseo Leigh MD Primary Care Provider [phone] Encounter Details Date Type Department Care Team (Latest Contact Info) Description 09/08/2006 Outpatient Historical [facility] [address] [place] [address] [place] [address] Alaina Tony MD [address] [address] Pre-Operative Cardiovascular Examination (Primary Dx) Social History Tobacco Use Types Packs/Day Years Used Date Smoking Tobacco: Never Assessed Comments Unknown Sex and Gender Information Value Date Recorded Sex Assigned at Not on file Legal Sex Female 3:08 AM GRAB JACK MAN Gender Identity Not on file Sexual Orientation [...] Primary documented in this encounter Care Teams Family Welfare Social Work Professor Relationship Specialty Start Date End Date Eliseo Leigh MD [address] [address] PCP - General 04/15/04 11/30/21 documented as of this encounter
--- OUTSIDE RECORDS SUMMARY | 2025-01-25 11:10 | XMS_ITS | Encounter Summary ---
Author Organization [facility] Address [address] [place] [address] Care Team Providers Care Janitor Head Name Role Phone Eliseo Leigh MD Primary Care Provider [phone] Encounter Details Date Type Department Care Team (Late st Contact Info) Description 02/16/2007 Outpatient Historical [facility] [place] [address] [place] [address] Eliseo Leigh MD [address] [place] [address] Social History Tobacco Use Types Packs/Day Years Used Date Smoking Tobacco: Never Assessed Comments No Sex and Gender Information Value Date Recorded Sex Assigned at Not on file Legal Sex Female 3:08 AM SHANK STAPLER Gender Identity Not on file Sexual Orientation Not on file documented as of this encounter Plan of Treatment Not on file documented as of this encounter Visit Diagnoses Not on filedocumented in this encounter Care Teams Janitor Head Relationship Specialty Start Date End Date Eliseo Leigh MD [address] [place] [address] PCP - General 04/15/04 11/30/21 documented as of this encounter
--- OUTSIDE RECORDS SUMMARY | 2025-01-25 11:10 | XMS_ITS | Encounter Summary ---
Author Organization [facility] Address [address] [place] [address] Care Team Providers Care Tanyard Worker Name Role Phone Eliseo Leigh MD Primary Care Provider [phone] Encounter Details Date Type Department Care Team (Late st Contact Info) Description 07/14/2006 Outpatient Historical [facility] O[facility]-[place] [address] [place] [address] Alaina Tony MD [address] [place] [address] Rectocele (Primary Dx) Social History Tobacco Use Types Packs/Day Years Used Date Smoking Tobacco: Never Assessed Comments Unknown Sex and Gender Information Value Date Recorded Sex Assigned at Not on file Legal Sex Female 3:08 AM LAP MAKER Gender Identity Not on file Sexual Orientation Not on file documented as of this encounter Plan of Treatment Not on file documented as of this encounter Visit Diagnoses Diagnosis Rectocele- Primary documented in this encounter Care Teams Tanyard Worker Relationship Specialty Start Date End Date Eliseo Leigh MD [address] [place] [address] PCP - General 04/15/04 11/30/21 documented as of this encounter
--- OUTSIDE RECORDS SUMMARY | 2025-01-25 11:10 | XMS_ITS | Encounter Summary ---
Author Organization [facility] Address [address] [facility] [place] [address] Care Team Providers Care Holistic Health Practitioner Name Role Phone Eliseo Leigh MD Primary Care Provider [phone] Encounter Details Date Type Department Care Team (Latest Contact Info) Description 04/24/1997 Outpatient Historical [facility] Dermatology- [facility] [place] [address] [place] [address] Mckay Evangelista MD NO ADDRESS ON FILE Malig beverly skin arm (Primary Dx); Other seborrheic keratosis; Dermatophytosis of foot Social History Tobacco Use Types Packs/Day Years Used Date Smoking Tobacco: Never Assessed Comments Unknown Sex and Gender Information Value Date Recorded Sex Assigned at Not on file Legal Sex Female 3:08 AM BOAT HOIST OPERATOR HELPER Gender Identity Not on file Sexual Orientation Not on file documented as of this encounter Plan of Treatment Not on file documented as of this encounter Visit Diagnoses Diagnosis Malig beverly skin arm- Primary 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
--- OUTSIDE RECORDS SUMMARY | 2025-01-25 11:10 | XMS_ITS | Encounter Summary ---
Author Organization [facility] Address [address] [place] [address] Care Team Providers Care Manager Game Name Role Phone Eliseo Leigh MD Primary Care Provider [phone] Encounter Details Date Type Department Care Team (Late st Contact Info) Description 02/16/2007 Outpatient Historical [facility] Orthopedics- [address] [place] [address] [place] [address] Tony Pollard MD NO ADDRESS ON FILE Social History Tobacco Use Types Packs/Day Years Used Date Smoking Tobacco: Never Assessed Comments No Sex and Gender Information Value Date Recorded Sex Assigned at Not on file Legal Sex Female 3:08 AM SUPERVISOR HAND WORKERS Gender Identity Not on file Sexual Orientation Not on file documented as of this encounter Plan of Treatment Not on file documented as of this encounter Visit Diagnoses Not on filedocumented in this encounter Care Teams Manager Game Relationship Specialty Start Date End Date Eliseo Leigh MD [address] [phone] PCP - General 04/15/04 11/30/21 documented as of this encounter
--- OUTSIDE RECORDS SUMMARY | 2025-01-25 11:10 | XMS_ITS | Encounter Summary ---
Author Organization [facility] Address [address] [facility] [place] [address] Care Team Providers Care Chassis Engineer Name Role Phone Eliseo Leigh MD Primary Care Provider [phone] Encounter Details Date Type Department Care Team (Latest Contact Info) Description 05/27/2007 Outpatient Historical [facility]ANCELLED ADMISSION Eliseo Leigh MD [address] [facility] [address] [place] [address] Abn Find-Musculoskel Sys Social History Tobacco Use Types Packs/Day Years Used Date Smoking Tobacco: Never Assessed Comments No Sex and Gender Information Value Date Recorded Sex Assigned at Not on file 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
--- OUTSIDE RECORDS SUMMARY | 2025-01-25 11:10 | XMS_ITS | Encounter Summary ---
Author Organization [facility] Address [address] [place] [address] Care Team Providers Care Clip On Sunglasses Inspector Name Role Phone Eliseo Leigh MD Primary Care Provider [phone] Encounter Details Date Type Department Care Team (Late st Contact Info) Description 02/02/2007 Outpatient Historical [facility] Orthopedics- [address] [place] 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
--- OUTSIDE RECORDS SUMMARY | 2025-01-25 11:10 | XMS_ITS | Encounter Summary ---
Author Organization [facility] Address [address] [place] [address] Care Team Providers Care Classification Control Clerk Name Role Phone Eliseo Leigh MD Primary Care Provider [phone] Encounter Details Date Type Department Care Team (Latest Contact Info) Description 05/06/2006 Outpatient Historical [facility] [place] [address] 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
--- OUTSIDE RECORDS SUMMARY | 2025-01-25 11:10 | XMS_ITS | Encounter Summary ---
Author Organization [facility] Address [address] [place] [address] Care Team Providers Care Edge Inker Heels Name Role Phone Eliseo Leigh MD Primary Care Provider [phone] Reason for Referral * Radiology Services (Routine) - Closed Specialty Diagnoses / Procedures Referred By Contac t Referred To Contact Radiology Diagnoses Breast cancer screening by mammogram Procedures MAMMO SCRN BILAT 3D OLEG W OR WO CAD CHG SCREENING MAMMOGRAPHY BI 2-VIEW BREAST INC CAD CHG SCREENING DIGITAL BREAST TOMOSYNTHESIS BI Eliseo Leigh MD [address] [facility] [address] [place] [address] Phone: tel: fax: [facility] [address] [facility] [address] [place] [address] Phone: tel: fax: Referral ID Status Reason Start Date Expiration Date Visits Re quested Visits Authorized [id number] Closed 03/18/2020 04/18/2021 1 1 OR BUSINESS INTELLIGENCE ANALYST Encounter Details Date Type Department Care Team (Latest Contact Info) Description 03/18/2020 Ancillary Orders [facility] Pre-Registration [place] CALL TO MAKE APPOINTMENT ONLY [address] [place] [address] Eliseo Leigh MD [address] [address] Breast cancer screening by mammogram Social History Tobacco Use Types Packs/Day Years Used Date Smoking Tobacco: Never Smokeless Tobacco: Never Alcohol Use Standard Drinks/Week Comments No 0 (1 standard drink = 0.6 oz pur e alcohol) Comments No Sex and Gender Information Value Date Recorded Sex Assigned at Not on file Legal Sex Female 3:08 AM SENIOR BUSINESS INTELLIGENCE ANALYST Gender Identity Not on file [...] COVID-19? No / Unsure 02/26/2020 1:36 PM SENIOR BUSINESS INTELLIGENCE ANALYST documented as of this encounter Plan of [...] mammogram documented in this encounter Care Teams Edge Inker Heels Relationship Specialty Start Date End Date Eliseo Leigh MD [address] [address] PCP - General 04/15/04 11/30/21 documented as of this encounter
--- OUTSIDE RECORDS SUMMARY | 2025-01-25 11:10 | XMS_ITS ---
Author Organization [facility] tone Address [address] [address] Care Team Providers Care Card Reader Name Role Phone Unavailable Primary Care Provider [...]
--- OUTSIDE RECORDS SUMMARY | 2025-01-25 11:10 | XMS_ITS | Encounter Summary ---
Author Organization [facility] Address [address] [place] [facility] [place] [address] Care Team Providers Care Machine Design Engineer Name Role Phone Eliseo Leigh MD Primary Care Provider [phone] Encounter Details Date Type Department Care Team (Latest Contact Info) Description 05/06/2006 Outpatient Historical [facility] [place] [address] 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
--- OUTSIDE RECORDS SUMMARY | 2025-01-25 11:10 | XMS_ITS | Encounter Summary ---
Author Organization [facility] Address [address] [facility] [place] [address] Care Team Providers Care Hardware Engineering Manager Name Role Phone Eliseo Leigh MD Primary Care Provider [phone] Encounter Details Date Type Department Care Team (Latest Contact Info) Description 08/01/1998 Outpatient Historical [facility] Tony Pollard MD NO ADDRESS ON FILE Unspecified closed fracture of ankle (Primary Dx) Social History Tobacco Use Types Packs/Day Years Used Date Smoking Tobacco: Never Assessed Comments Unknown Sex and Gender Information Value Date Recorded Sex Assigned at Not on file 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
--- OUTSIDE RECORDS SUMMARY | 2025-01-25 11:10 | XMS_ITS | Encounter Summary ---
Author Organization [facility] Address [address] [facility] [place] [address] Care Team Providers Care Cardiothoracic Surgeon Name Role Phone Eliseo Leigh MD Primary Care Provider [phone] Encounter Details Date Type Department Care Team (Latest Contact Info) Description 09/12/1998 Outpatient Historical [facility] Tony Pollard MD NO ADDRESS ON FILE Unspecified closed fracture of ankle (Primary Dx) Social History Tobacco Use Types Packs/Day Years Used Date Smoking Tobacco: Never Assessed Comments Unknown Sex and Gender Information Value Date Recorded Sex Assigned at Not on file 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
--- OUTSIDE RECORDS SUMMARY | 2025-01-25 11:10 | XMS_ITS | Encounter Summary ---
Author Organization [facility] Address [address] [place] [address] Care Team Providers Care Grain Mixer Name Role Phone Eliseo Leigh MD Primary Care Provider Encounter Details Date Type Department Care Team (Latest Contact Info) Description 06/24/2006 Outpatient Historical [facility] [place] [place] [address] Eliseo Leigh MD [address] [place] [address] Unspecified Prolapse of Vaginal You (Primary Dx) Social History Tobacco Use Types Packs/Day Years Used Date Smoking Tobacco: Never Assessed Comments Unknown Sex and Gender Information Value Date Recorded Sex Assigned at Not on file 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
--- OUTSIDE RECORDS SUMMARY | 2025-01-25 11:10 | XMS_ITS | Encounter Summary ---
Author Organization [facility] Address [address] [place] [address] Care Team Providers Care Recruiting Administrator Name Role Phone Eliseo Leigh MD Primary Care Provider [phone] Encounter Details Date Type Department Care Team (Latest Contact Info) Description 07/28/2006 Outpatient Historical [facility] Imaging Services-[facility] [address] [place] [address] Eliseo Leigh MD [address] [place] [address] Osteoarth NOS-L/Leg (Primary Dx); Pain in Joint, Lower Leg Social History Tobacco Use Types Packs/Day Years Used Date Smoking Tobacco: Never Assessed Comments Unknown Sex and Gender Information Value Date Recorded Sex Assigned at Not on file 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
--- OUTSIDE RECORDS SUMMARY | 2025-01-25 11:10 | XMS_ITS | Encounter Summary ---
Author Organization [facility] Address [address] [place] [address] Care Team Providers Care Wind Energy Engineer Name Role Phone Eliseo Leigh MD Primary Care Provider [phone] Encounter Details Date Type Department Care Team (Latest Contact Info) Description 06/24/1998 Outpatient Historical [facility] Tony Pollard MD NO ADDRESS ON FILE Unspecified closed fracture of ankle (Primary Dx) Social History Tobacco Use Types Packs/Day Years Used Date Smoking Tobacco: Never Assessed Comments Unknown Sex and Gender Information Value Date Recorded Sex Assigned at Not on file 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
--- OUTSIDE RECORDS SUMMARY | 2025-01-25 11:10 | XMS_ITS | Encounter Summary ---
Author Organization [facility] Address [address] [place] [address] Care Team Providers Care Service Line Bus Cleaner Name Role Phone Eliseo Leigh MD Primary Care Provider Encounter Details Date Type Department Care Team (Late st Contact Info) Description 02/23/2007 Outpatient Historical [facility] Orthopedics- [address] [place] [address] Tony Pollard MD NO ADDRESS ON FILE Social History Tobacco Use Types Packs/Day Years Used Date Smoking Tobacco: Never Assessed Comments No Sex and Gender Information Value Date Recorded Sex Assigned at Not on file Legal Sex Female 3:08 AM LEGISLATIVE ANALYST Gender Identity Not on file Sexual Orientation Not on file documented as of this encounter Plan of Treatment Not on file documented as of this encounter Visit Diagnoses Not on filedocumented in this encounter Care Teams Service Line Bus Cleaner Relationship Specialty Start Date End Date Eliseo Leigh MD [address] [phone] PCP - General 04/15/04 11/30/21 documented as of this encounter
--- OUTSIDE RECORDS SUMMARY | 2025-01-25 11:10 | XMS_ITS | Encounter Summary ---
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
--- OUTSIDE RECORDS SUMMARY | 2025-01-25 11:10 | XMS_ITS | Encounter Summary ---
Author Organization [facility] Address [address] [place] [address] Care Team Providers Care Director Of Nuclear Medicine Name Role Phone Eliseo Leigh MD Primary Care Provider [phone] Encounter Details Date Type Department Care Team (Latest Contact Info) Description 07/28/2006 Outpatient Historical [facility] [place] [place] [address] Eliseo Leigh MD [address] [place] [address] Routine Medical Exam (Primary Dx); Unspecified Chest Pain; Shortness of Breath Social History Tobacco Use Types Packs/Day Years Used Date Smoking Tobacco: Never Assessed Comments Unknown Sex and Gender Information Value Date Recorded Sex Assigned at Not on file 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
--- OUTSIDE RECORDS SUMMARY | 2025-01-25 11:10 | XMS_ITS | Encounter Summary ---
Author Organization [facility] Address [address] [place] [address] Care Team Providers Care Retail Selling Specialist Name Role Phone Eliseo Leigh MD Primary Care Provider [phone] Encounter Details Date Type Department Care Team (Late st Contact Info) Description 05/22/2007 Outpatient Historical [facility] [address] [place] [address] Eliseo Leigh MD [address] [phone] Lumbago Social History Tobacco Use Types Packs/Day Years Used Date Smoking Tobacco: Never Assessed Comments No Sex and Gender Information Value Date Recorded Sex Assigned at Not on file Legal Sex Female 3:08 AM FORK LIFT TRUCK OPERATOR Gender Identity Not on file Sexual [...] contrast and with 15 mL of [employer] 1103 Dictated By: Polo Rodrigez [...] without contrast and with 15 mL ofOptimark. [facility] 1103 Dictated By: Polo Rodrigez M.D. Electronically Signed By: Polo Rodrigez M.D. Date Signed: 06/30/07 [facility] Eliseo Leigh MD MR ORDERABLES Edited documented in this encounter Visit Diagnoses Diagnosis Lumbago documented in this encounter Care Teams Retail Selling Specialist Relationship Specialty Start Date End Date Eliseo Leigh MD [address] [address] PCP - General 04/15/04 11/30/21 documented as of this encounter
--- OUTSIDE RECORDS SUMMARY | 2025-01-25 11:10 | XMS_ITS | Encounter Summary ---
Author Organization [facility] Address [address] [place] [address] Care Team Providers Care Messenger Floorperson Name Role Phone Eliseo Leigh MD Primary Care Provider [phone] Encounter Details Date Type Department Care Team (Latest Contact Info) Description 09/08/2006 Outpatient Historical [facility] O[facility]YN-[place] [address] [place] [address] Alaina Tony MD [address] [place] [address] Uterovaginal Prolapse, Unspecified (Primary Dx) Social History Tobacco Use Types Packs/Day Years Used Date Smoking Tobacco: Never Assessed Comments Unknown Sex and Gender Information Value Date Recorded Sex Assigned at Not on file 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
--- OUTSIDE RECORDS SUMMARY | 2025-01-25 11:10 | XMS_ITS | Encounter Summary ---
Author Organization [facility] Address [address] [place] [address] Care Team Providers Care Sales Service Executive Name Role Phone Eliseo Leigh MD Primary Care Provider [phone] Encounter Details Date Type Department Care Team (Latest Contact Info) Description 08/03/2006 Outpatient Historical [facility] Cardiology Ancillary Services-[facility] [place] [address] [place] [address] Yovani Varela MD NO ADDRESS ON FILE Shortness of Breath (Primary Dx); Unspecified Chest Pain Social History Tobacco Use Types Packs/Day Years Used Date Smoking Tobacco: Never Assessed Comments Unknown Sex and Gender Information Value Date Recorded Sex Assigned at Not on file Legal Sex Female 3:08 AM DELINQUENT NOTICE MACHINE OPERATOR Gender Identity Not on file Sexual Orientation Not on file documented as of this encounter Plan of Treatment Not on file documented as of this encounter Visit Diagnoses Diagnosis Shortness of breath- Primary Chest pain, unspecified documented in this encounter Care Teams Sales Service Executive Relationship Specialty Start Date End Date Eliseo Leigh MD [address] [place] [phone] PCP - General 04/15/04 11/30/21 documented as of this encounter
[2025-01-25 11:18] LABS: Hematocrit 36.1 % (36-47); Hemoglobin 12.00 g/dL (11.27-16.99); Mean Corpuscular HGB Conc 33.2 g/dL (30-55); Mean Corpuscular Hemoglobin 28.8 pg (27-33); Mean Corpuscular Volume 86.8 fl (85-98); Nucleated Red Blood Cells % 0 %; Platelet Count 183 10^3/cmm (157-399); Red Blood Count 4.16 10^6/uL (3.85-5.65); White Blood Count 9.73 10^3/uL (3.29-11.43)
[2025-01-25 11:36] LABS: Lactic Sepsis W/Reflex 2.4 mmol/L (0.5-2.2); Troponin(5th) Baseline 37 ng/L (0-10)
[2025-01-25 11:37] LABS: Reflex Lactate Order REFLEX LACTIC ORDERD
[2025-01-25 11:56] LABS: Alanine Aminotransferase 10 U/L (0-33); Albumin Level 2.7 g/dL (3.5-5.2); Alkaline Phosphatase 98 U/L (35-105); Anion Gap 15.8 (5-19); Aspartate Amino Transferase 30 U/L (0-32); Blood Urea Nitrogen 16 mg/dL (8-23); Calcium 8.4 mg/dL (8.5-10.5); Carbon Dioxide 25 mmol/L (22-29); Chloride 95 mmol/L (98-107); Globulin 2.8 g/dL (1.3-4.6); Glucose 132 mg/dL (65-115); Osmolality Calculated 277 mOsm/kg (285-295); Potassium 3.8 mmol/L (3.5-5.1); Sodium 132 mmol/L (136-145); Total Protein 5.5 g/dL (6.6-8.7)
[2025-01-25 12:09] LABS: Respiratory Syncytial Virus Ce NEGATIVE (Negative); SARS-CoV-2 PCR NEGATIVE (Negative)
--- NOTE | 2025-01-25 12:16 | W.ED.SOB ---
HPI - SOB/Dyspnea General: Chief Complaint: Shortness of Breath/Dyspnea Stated Complaint: SOB Time Seen by Provider: 01/25/25 11:01 History of Present Illness: HPI Narrative: 84-year-old female presents emergency room with family member she has been sick with a productive cough last couple of days. She had gone to her doctor's office today was noted to be hypoxic and referred to the emergency room. She has had a low-grade fever as well denies chest pain. Does not typically wear oxygen. No hemoptysis. Related Data Home Medications ?Medication ?Instructions ?Recorded ?Confirmed amlodipine 5 mg tablet 5 mg PO QPM 06/09/24 01/25/25 Held on 01/21/25. Instructions: Home Medication placed on hold at Doctor's office cyanocobalamin (vitamin B-12) 1,000 mcg IM Q30D 06/09/24 01/25/25 1,000 mcg/mL injection solution Held on 01/21/25. Instructions: Home Medication placed on hold at Doctor's office famotidine 40 mg tablet 40 mg PO DAILY PRN upset stomach 06/09/24 01/25/25 Held on 01/21/25. Instructions: Home Medication placed on hold at Doctor's office isosorbide mononitrate 30 mg 30 mg PO QAM 06/09/24 01/25/25 tablet,extended release 24 hr Held on 01/21/25. Instructions: Home Medication placed on hold at Doctor's office levothyroxine 125 mcg tablet 125 mcg PO QAM 06/09/24 01/25/25 propafenone 150 mg tablet 150 mg PO Q8H 06/09/24 01/25/25 sertraline 25 mg tablet 25 mg PO DAILY 06/09/24 01/25/25 Held on 01/21/25. Instructions: Home Medication placed on hold at Doctor's office gabapentin 300 mg capsule 300 mg PO BEDTIME 01/25/25 01/25/25 permethrin 5 % topical cream See Rx Instructions .Route .COMPLEX 01/25/25 01/25/25 Previous Rx's ?Medication ?Instructions ?Recorded tizanidine 4 mg tablet 2 mg (1/2 x 4 mg) PO Q6H PRN 12/08/24 Held on 01/21/25. muscle spasticity #20 tabs Instructions: Home Medication placed on hold at Doctor's office leflunomide 20 mg tablet 20 mg PO DAILY #90 tabs 12/13/24 Held on 01/21/25. Instructions: Home Medication placed on hold at Doctor's office pilocarpine HCl 5 mg tablet 5 mg PO TID #90 tabs 12/13/24 Held on 01/21/25. Instructions: Home Medication placed on hold at Doctor's office triamcinolone acetonide 0.1 % 1 applic topical BID PRN itching 12/19/24 topical cream #30 grams alprazolam 0.25 mg tablet 0.25 mg PO BID PRN anxiety #20 tabs 01/21/25 Allergies Allergy/AdvReac Type Severity Reaction Status Date / Time LAURENT Inhibitors Allergy Unknown Unkown Verified 01/25/25 11:03 ezetimibe Allergy Unknown Unknown Verified 01/25/25 11:03 codeine Allergy ADR-Headach Verified 01/25/25 11:03 e COVID-19 vaccine, Allergy hives Verified 01/25/25 11:03 recombinant (Nova (From Novavax COVID19 Vac,Adj(Unapp)) Ziytfal-HKX-DcH Reductase Allergy ADV-Weaknes Verified 01/25/25 11:03 Inhibitor (Fqahxnx-Gco-Mra s Reductase Inhibitor) vaccine adjuvant system, Allergy hives Verified 01/25/25 11:03 ISCOM-Matrix (From Novavax COVID19 Vac,Adj(Unapp)) PFSH ED PFSH: Medical History Chronic pruritus Immunization counseling High risk medication use Osteoarthritis, generalized Polyarthralgia Osteoporosis Traumatic compression fracture of eleventh thoracic vertebra History of CVA (cerebrovascular accident) GERD (gastroesophageal reflux disease) Hypothyroidism Hypertension Pacemaker Surgical History History of hip replacement rt Aortic valve replaced H/O eye surgery Hx of cataract surgery Hx of tonsillectomy S/P cholecystectomy History of open heart surgery H/O: hysterectomy H/O vaginal surgery History of knee replacement History of ankle surgery Family History Mother Stroke Social History Smoking and tobacco/nicotine status: never used tobacco/nicotine Second hand smoke exposure: No Alcohol intake: current Alcohol intake frequency: holidays/special occasions only Substance/Drug Use: never Female Reproductive History: Para: 2 Spontaneous abortions: No Course Vital Signs: Vital signs: Vital Signs Temperature 97.3 F L 01/28/25 04:00 Pulse Rate 85 01/28/25 06:00 Respiratory Rate 18 01/28/25 04:00 Blood Pressure 136/85 01/28/25 04:00 Pulse Oximetry 86 L 01/28/25 04:00 Oxygen Delivery Me thod Nasal Cannula 01/27/25 23:54 Oxygen Flow Rate 4 01/27/25 20:00 MDM - SOB/Dyspnea Medical Decision Making Medical decision making Social determinants: Age generalized weakness and decline requires assistance with ADLs I reviewed the patient's medical record. I reviewed the patient's current home meds. Alternate historians: and son present at the bedside Differential diagnosis: Pneumonia, congestive heart failure, COVID, influenza Lab Review: CBC shows white count 9.73 with a normal hemoglobin normal platelets. Mild hyponatremia which appears to be chronic. Chronic mild kidney disease creatinine of 1.2 slightly better than her previous reading. Lactic acid of 2.4. Troponins trended negative initial 37 follow-up 34. Urine does not show signs of infection. Flu COVID RSV negative Imaging: Bilateral extensive pneumonia, most prominent on the right lung additionally there is signs of left basal pneumonia. No widening of the mediastinum. Pacemaker present.. There are also signs of hiatal hernia. Assessment of risk Level of risk: High Hospitalization considerations: Patient presents with hypoxia corrected with oxygen supplementation will require hospitalization Reexamination: Mild improvement with oxygen supplementation Assessment and plan: Admit for extensive pneumonia. Antibiotics initiated flu COVID and RSV are negative patient does have mild lactic acidosis however blood pressures appear stable. Will require hospitalization discussed with hospitalist orders written Lab Data 01/28/25 04:26 01/28/25 04:26 Labs/Radiology: Radiology Impressions Chest X-Ray 01/25/25 10:58 Impression: 1. Patchy opacity in periphery of right lung which may represent acute pneumonia. 2. Cardiomegaly, atherosclerosis and cardiac pacemaker. Laboratory Results WBC 9.73 10^3/uL (3.29-11.43) 01/25/25 11:11 RBC 4.16 10^6/uL (3.85-5.65) 01/25/25 11:11 Hgb 12.00 g/dL (11.27-16.99) 01/25/25 11:11 Hct 36.1 % (36-47) 01/25/25 11:11 MCV 86.8 fl (85-98) 01/25/25 11:11 MCH 28.8 pg (27-33) 01/25/25 11:11 MCHC 33.2 g/dL (30-55) 01/25/25 11:11 RDW 15.2 % (12.1-15.1) H 01/25/25 11:11 Plt Count 183 10^3/cmm (157-399) 01/25/25 11:11 MPV 9.5 fL (7.4-10.4) 01/25/25 11:11 Neut % (Auto) 82.5 % 01/25/25 11:11 Lymph % (Auto) 9.0 % 01/25/25 11:11 [place] % (Auto) 6.9 % 01/25/25 11:11 Eos % (Auto) 0.6 % 01/25/25 11:11 Baso % (Auto) 0.5 % 01/25/25 11:11 Neut # (Auto) 8.02 10^3/uL (1.8-7.7) H 01/25/25 11:11 Lymph # (Auto) 0.9 10^3/uL (0.8-4.8) 01/25/25 11:11 [place] # (Auto) 0.7 10^3/uL (0.2-0.9) 01/25/25 11:11 Eos # (Auto) 0.1 10^3/uL (0.0-0.8) 01/25/25 11:11 Baso # (Auto) 0.1 10^3/uL (0.0-0.1) 01/25/25 11:11 Nucleated RBC % (auto) 0 % 01/25/25 11:11 Nucleated RBCs # 0.0 /100WBC 01/25/25 11:11 Sodium 132 mmol/L (136-145) L 01/25/25 11:11 Potassium 3.8 mmol/L (3.5-5.1) 01/25/25 11:11 Chloride 95 mmol/L (98-107) L 01/25/25 11:11 Carbon Dioxide 25 mmol/L (22-29) 01/25/25 11:11 Anion Gap 15.8 (5-19) 01/25/25 11:11 BUN 16 mg/dL (8-23) 01/25/25 11:11 Creatinine 1.2 mg/dL (0.5-0.9) H 01/25/25 11:11 GFR Calculation Not Reportable 01/25/25 11:11 Glucose 132 mg/dL (65-115) H 01/25/25 11:11 Calculated Osmolality 277 mOsm/kg (285-295) L 01/25/25 11:11 Lactic Acid 2.4 mmol/L (0.5-2.2) H 01/25/25 11:11 Calcium 8.4 mg/dL (8.5-10.5) L 01/25/25 11:11 Total Bilirubin 0.7 mg/dL (0.15-1.2) 01/25/25 11:11 AST 30 U/L (0-32) 01/25/25 11:11 ALT 10 U/L (0-33) 01/25/25 11:11 Alkaline Phosphatase 98 U/L (35-105) 01/25/25 11:11 Troponin T Baseline 37 ng/L (0-10) H 01/25/25 11:11 Troponin T 60 Minute 34.01 ng/L (0-10) H 01/25/25 12:16 Delta Troponin T -2.99 ABS# (0-10) L 01/25/25 12:16 Total Protein 5.5 g/dL (6.6-8.7) L 01/25/25 11:11 Albumin 2.7 g/dL (3.5-5.2) L 01/25/25 11:11 Globulin 2.8 g/dL (1.3-4.6) 01/25/25 11:11 TSH 3.48 uIU/mL (0.27-4.20) 01/25/25 11:11 Influenza A (PCR) Negative (Negative) 01/25/25 11:27 Influenza Type B (PCR) Negative (Negative) 01/25/25 11:27 RSV (PCR) Negative (Negative) 01/25/25 11:27 SARS-CoV-2 (PCR) Negative (Negative) 01/25/25 11:27 All radiology interpretation(s) finalized by discharge Discharge Plan Discharge Patient Disposition: Admitted As Inpatient Admit Provider: Joseph Langston Clinical Impression: Community acquired bacterial pneumonia Hypertension Qualifiers: Hypertension type: primary hypertension Qualified Code(s): I10 - Essential (primary) hypertension Hypothyroidism Qualifiers: Hypothyroidism type: acquired Qualified Code(s): E03.9 - Hypothyroidism, unspecified Condition: Stable Coding Level of Care Code ED Certified Energy Manager for Arahs Camara
--- NOTE | 2025-01-25 12:25 | ECG_ITS ---
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1940 Requested By: Cesario Jean-Baptiste Order Number: [id number] Reading MD: EVELYN COVARRUBIAS Measurements Intervals [place] Rate: 111 P: -11 OK: 149 QRS: -34 QRSD: 134 T: 13 QT: 343 QTc: 467 Interpretive Statements SINUS TACHYCARDIA WITH OCCASIONAL SUPRAVENTRICULAR PREMATURE COMPLEXES POSSIBLE LEFT ATRIAL ENLARGEMENT [-0.1mV P-WAVE IN V1/V2] LEFT AXIS DEVIATION [QRS AXIS < -30] RIGHT BUNDLE BRANCH BLOCK [120+ ms QRS DURATION, UPRIGHT V1, 40+ ms S IN I/aVL/V4/V5/V6] SEPTAL MYOCARDIAL INFARCTION , OF INDETERMINATE AGE [40+ ms Q WAVE IN V1/V2] Compared to ECG 01/25/2025 11:04:25 Left-axis deviation now present Short OK interval no longer present Myocardial infarct finding still present Electronically Signed On 01-30-2025 20:56:09 BISCUITWARE BRUSHER by EVELYN COVARRUBIAS [email or web address]
[2025-01-25] MEDS: cefTRIAXone 1,000 mg SDV 1000 MG IVP (12:31)
--- NOTE | 2025-01-25 13:10 | P.HP_ITS ---
<Statement entered by Joseph Langston MD - 01/25/25 21:19> Patient case discussed with ED provider and reviewed and discussed with ELENA including E&M. Providers/Chief Complaint 2 Admitting Physician: Dr. Langston Primary Care Provider: Fredrick Aldridge MD Chief Complaint: SOB History of Present Illness Jacklyn Schultz is a 84 year old female w/ pmhx of HTN, hypothyroidism, GERD, polyarthralgia, and pacemaker presents to the ED with c/o SOB. Patient reports her shortness of breath began about a week ago, reports dry hacking cough and wheezing. Associated signs and symptoms of diarrhea, increased weakness, and chills. She is currently requiring 2L NC, son noted at bedside during my evaluation. She denies exposure to any known sick persons. She denies fever, headache, chest pain palpitations, nasal congestion, ABD pain, N/V/C, changes in urinary habits, and recent medication changes. Son at bedside reports that Ms. Schultz (who is hospitalized currently and very weak) is who takes care of her at home. He is requesting other available outpatient discharge options. Patient to be admitted under inpatient status with hospitalist services for further medical management and care of community-acquired pneumonia and hypoxia. While in ED a CBC, CMP, lactic acid, troponin series were obtained, reviewed and results as follows: WBC 9.73, Neut 8.02 otherwise unremarkable. Na 132, K 3.8, Osmo 277, glucose 132. Lactic acid, . Baseline troponin 37, 2-hour troponin 34.01, delta troponin T -2.99. Albumin 2.7, calcium 8.4, protein 5.5. While in ED patient received following medications: 1,866mL bolus, azithromycin 500 mg IV, ceftriaxone 1000 mg IVP. Review of Systems 2 General: Reports: 10 or more systems reviewed and unremarkable except in HPI and below Medications/Allergies Home Medications ?Medication ?Instructions ?Recorded ?Confirmed ?Last Taken ?Type amlodipine 5 mg tablet 5 mg PO QPM 06/09/24 5 12/07/24 History Held on 01/21/25. Instructions: Home Medication placed on hold at Doctor's office cyanocobalamin (vitamin B-12) 1,000 mcg IM Q30D 01/25/25 Unknown History 1,000 mcg/mL injection solution Held on 01/21/25. Instructions: Home Medication placed on hold at Doctor's office famotidine 40 mg tablet 40 mg PO DAILY PRN upset sto mach 06/09/24 01/25/25 12/03/24 History Held on 01/21/25. Instructions: Home Medication placed on hold at Doctor's office isosorbide mononitrate 30 mg 30 mg PO QAM 06/09/2412/03/24 History tablet,extended release 24 hr Held on 01/21/25. Instructions: Home Medication placed on hold at Doctor's office levothyroxine 125 mcg tablet 125 mcg PO QAM 06/09/24 1 03/28/24 01/25/25 History propafenone 150 mg tablet 150 mg PO Q8H 06/09/2401/2512/08/24 History sertraline 25 mg tablet 25 mg PO DAILY 06/09/2401/0712/03/24 History Held on 01/21/25. Instructions: Home Medication placed on hold at Doctor's office tizanidine 4 mg tablet 2 mg (1/2 x 4 mg) PO Q6H PRN 12/08/24 01/25/25 Unknown Rx Held on 01/21/25. muscle spasticity #20 tabs Instructions: Home Medication placed on hold at Doctor's office leflunomide 20 mg tablet 20 mg PO DAILY #90 tabs 08/0101/25/25 Unknown Rx Held on 01/21/25. Instructions: Home Medication placed on hold at Doctor's office pilocarpine HCl 5 mg tablet 5 mg PO TID #90 tabs 12/1301/25/25 Unknown Rx Held on 01/21/25. Instructions: Home Medication placed on hold at Doctor's office triamcinolone acetonide 0.1 % 1 applic topical BID PRN itching 12/19/24 01/25/25 Unknown Rx topical cream #30 grams alprazolam 0.25 mg tablet 0.25 mg PO BID PRN anxiety # 20 tabs 01/21/25 01/25/25 Unknown Rx gabapentin 300 mg capsule 300 mg PO BEDTIME 01/25/25 1 03/28/24 Unknown History permethrin 5 % topical cream See Rx Instructions .Rout e .COMPLEX 01/25/25 01/25/25 Unknown History Allergies Allergy/AdvReac Type Severity Reaction Status Date / Time LAURENT Inhibitors Allergy Unknown Unkown Verified 01/25/25 11:03 ezetimibe Allergy Unknown Unknown Verified 01/25/25 11:03 codeine Allergy ADR-Headach Verified 01/25/25 11:03 e COVID-19 vaccine, Allergy hives Verified 01/25/25 11:03 recombinant (Nova (From Novavax COVID19 Vac,Adj(Unapp)) Dqskfpm-URN-TqN Reductase Allergy ADV-Weaknes Verified 01/25/25 11:03 Inhibitor (Fhenykp-Meq-Efg s Reductase Inhibitor) vaccine adjuvant system, Allergy hives Verified 01/25/25 11:03 ISCOM-Matrix (From Novavax COVID19 Vac,Adj(Unapp)) PFSH Acute 2 PFSH: Medical History (Updated 01/25/25 @ 17:49 by Bettie Carreon NP) Chronic pruritus Immunization counseling High risk medication use Osteoarthritis, generalized Polyarthralgia Osteoporosis Traumatic compression fracture of eleventh thoracic vertebra History of CVA (cerebrovascular accident) GERD (gastroesophageal reflux disease) Hypothyroidism Hypertension Pacemaker Surgical History History of hip replacement rt Aortic valve replaced H/O eye surgery Hx of cataract surgery Hx of tonsillectomy S/P cholecystectomy History of open heart surgery H/O: hysterectomy H/O vaginal surgery History of knee replacement History of ankle surgery Family History Mother Stroke Social History Smoking and tobacco/nicotine status: never used tobacco/nicotine Second hand smoke exposure: No Alcohol intake: current Alcohol intake frequency: holidays/special occasions only Substance/Drug Use: never Female Reproductive History: Para: 2 Spontaneous abortions: No Vitals/I&O/Wt Last Vital Signs Temp 99.5 F 01/25/25 11:03 Pulse 104 H 01/25/25 12:45 Resp 33 H 01/25/25 12:45 BP 154/96 01/25/25 12:45 Pulse Ox 95 01/25/25 12:45 O2 Del Method Nasal Cannula 01/25/25 12:35 O2 Flow Rate 4 01/25/25 12:35 01/24/25 01/25/25 01/25/25 22:59 06:59 14:59 Intake Total 0 / 0 Balance 0 / 0 Weight last 48 hrs Weight 62.233 kg Physical Exam 2 Narrative: General: A&Ox4, resting in bed on 2L NC, son noted to be at bedside. No apparent distress HEENT: Normo-cephalic, atraumatic, grossly unremarkable exam Cardio: NSR, normal S1-S2 w/o any murmurs, rubs, or gallops and JVD normal Respiratory: Diminished to bilateral upper and lower lobes, requiring oxygen GI: Abd soft, non-tender, non-distended, normo-active bowel sounds present Neuro: Moves all extremities, no sensory deficits, Normal speech Behavior: Appropriate and cooperative Extremities: Adequate palpable pulses. No clubbing, cyanosis or edema, Full ROM- very weak. Data 01/25/25 11:11 01/25/25 11:11 Other Labs: 01/25: CXR: reviewed and results as follows: Patchy opacity in periphery of right lung which may represent acute pneumonia. Cardiomegaly, atherosclerosis and cardiac pacemaker. A&P Assessment and plan 1. Community acquired bacterial pneumonia: - Requiring oxygen, SOB x 1wk + diarrhea. Denies fevers. - 01/25: CXR: Patchy opacity in periphery of right lung which may represent acute pneumonia. - Sputum cultures ordered, pending - Legionella and bacterial antigens ordered, pending - MRSA ordered, pending - RVP ordered, pending-isolation precautions. - Continue IV abx Rocephin at 1000 mg IVP, doxycycline 100 mg IV - Prednisone 10 mg PO in am, 5mg PO nightly - DuoNebs as needed and scheduled Pulmicort BID ordered - Oxygen as per protocol - IS q1hr - Early ambulation, frequent repositioning - Aspiration precautions 2. Primary hypertension: - Continue home medication isosorbide mononitrate 30 mg PO, amlodipine 5 mg PO dly - Vital signs as per protocol 3. Acquired hypothyroidism: - TSH ordered, pending - Continue levothyroxine 125 mcg PO dly 4. Gastroesophageal reflux disease without esophagitis: - Hold home medication - Protonix 40 mg PO BID 5. Osteoarthritis, generalized: - Continue home medication leflunomide 20mg PO 6. History of aortic valve replacement: - Not on scheduled aspirin - Follow-up with PCP 7. Dry mouth: - Continue home medication pilocarpine 5mg PO dly 8. Depression with anxiety: - Continue home medication sertraline 25mg PO dly, alprazolam 0.25mg PO BID PRN Plan: Of note patient said states she had a tooth removed about a year ago in February 2023, began to have mouth problems and then started developing bumps on her skin that later turn into open wounds . Patient following up outpatient with PCP, rheumatology, and dermatology. CODE STATUS: Full Code GI prophylaxis: Protonix 40mg BID dly VTE prophylaxis: Lovenox 30mg SC dly PDMP PDMP Reviewed: Not Reviewed Attestations 2 Medical Necessity Statement*: Admitted under inpatient status. Given complexity of patient's presentation, co-morbid conditions, community-acquired pneumonia with acute hypoxia, and required intensity of treatment, a hospitalization exceeding two midnights is anticipated. and High Time for a total of 77 minutes, includes reviewing past or interval history, examining/interviewing patient, placing orders, counseling patient/family/other support, updating patient/family/other support, discussing plan of care with staff, communicating with other healthcare providers, documenting encounter and coordinating care Diagnoses Community acquired bacterial pneumonia J15.9 Primary hypertension I10 Hypertension type: primary hypertension Acquired hypothyroidism E03.9 Hypothyroidism type: acquired Gastroesophageal reflux disease without esophagitis K21.9 Esophagitis presence: without esophagitis Osteoarthritis, generalized M15.9 History of aortic valve replacement Z95.2 Dry mouth R68.2 Depression with anxiety F41.8
[2025-01-25 13:51] LABS: Thyroid Stimulating Hormone 3.48 uIU/mL (0.27-4.20)
[2025-01-25 14:37] LABS: Lactic Acid level (Lactate) 2.4 mmol/L (0.5-2.2)
--- NOTE | 2025-01-25 16:59 | ECG_ITS ---
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1940 Requested By: Cesario Jean-Baptiste Order Number: [id number] Reading MD: EVELYN COVARRUBIAS Measurements Intervals [place] Rate: 106 P: 0 FL: 0 QRS: -27 QRSD: 141 T: 6 QT: 375 QTc: 499 Interpretive Statements Sinus rythm with pacs BORDERLINE LEFT AXIS DEVIATION [QRS AXIS < -20] RIGHT BUNDLE BRANCH BLOCK [120+ ms QRS DURATION, UPRIGHT V1, 40+ ms S IN I/aVL/V4/V5/V6] Compared to ECG 01/25/2025 12:25:50 Sinus tachycardia no longer present Myocardial infarct finding no longer present Electronically Signed On 01-30-2025 20:53:50 SHANK SCOURER by EVELYN COVARRUBIAS [email or web address]
[2025-01-25 17:41] LABS: Glucose Urine UA Negative (Normal); Nitrate Urine Negative (Negative); Specific Gravity, Urine 1.023 (1.005-1.030)
[2025-01-25 17:46] LABS: Add Urine Microscopic? YES
[2025-01-25 17:56] LABS: Troponin 5 6HR 33.38 ng/L (0-10)
[2025-01-25 17:57] LABS: Troponin 5 6HR Delta -3.62 ng/L (0-12)
[2025-01-25 18:57] LABS: MRSA PCR OZH (swab) MRSA Detected (Not Detecte)
[2025-01-25 19:30] LABS: Coronavirus 229E,HKU1,NL63,OC4 Not Detected (NOT DETECT); Parainfluenza Virus Type 1 Not Detected (NOT DETECT); Parainfluenza Virus Type 2 Not Detected (NOT DETECT); Parainfluenza Virus Type 3 Not Detected (NOT DETECT); Parainfluenza Virus Type 4 Not Detected (NOT DETECT); SARS-COV-2 Not Detected (NOT DETECT)
[2025-01-26] VITALS (8 sets, daily range): BP systolic 100–132; BP diastolic 64–77; PULSE 82–108; RESP 16–20; TEMP 36.4–36.6; O2SAT 92–98
[2025-01-26 04:28] LABS: Hematocrit 30.8 % (36-47); Hemoglobin 10.10 g/dL (11.27-16.99); Mean Corpuscular HGB Conc 32.8 g/dL (30-55); Mean Corpuscular Hemoglobin 29.4 pg (27-33); Mean Corpuscular Volume 89.5 fl (85-98); Nucleated Red Blood Cells % 0 %; Platelet Count 170 10^3/cmm (157-399); Red Blood Count 3.44 10^6/uL (3.85-5.65); White Blood Count 7.82 10^3/uL (3.29-11.43)
[2025-01-26 04:55] LABS: Alanine Aminotransferase 7 U/L (0-33); Albumin Level 2.2 g/dL (3.5-5.2); Alkaline Phosphatase 84 U/L (35-105); Anion Gap 12.7 (5-19); Aspartate Amino Transferase 26 U/L (0-32); Blood Urea Nitrogen 17 mg/dL (8-23); Calcium 7.7 mg/dL (8.5-10.5); Carbon Dioxide 24 mmol/L (22-29); Chloride 100 mmol/L (98-107); Globulin 2.3 g/dL (1.3-4.6); Glucose 110 mg/dL (65-115); Magnesium 2.0 mg/dL (1.7-2.3); Osmolality Calculated 278 mOsm/kg (285-295); Potassium 3.7 mmol/L (3.5-5.1); Sodium 133 mmol/L (136-145); Total Protein 4.5 g/dL (6.6-8.7)
--- NOTE | 2025-01-26 07:09 | PHA.VACGOAL ---
Vancomycin Goal - Goal Vancomycin Goal:: 15-20 mg/L Vancomycin Indication:: Pneumonia - Therapy Current therapy:: Other Antibiotic (CEFTRIAXONE) Day of therpy:: Day []of [] . Actual body weight (kg): 147 lb 8 oz - Data Labs: WBC 7.82 10^3/uL (3.29-11.43) 01/26/25 03:32 RBC 3.44 10^6/uL (3.85-5.65) L 01/26/25 03:32 Hgb 10.10 g/dL (11.27-16.99) L 01/26/25 03:32 Hct 30.8 % (36-47) L 01/26/25 03:32 MCV 89.5 fl (85-98) 01/26/25 03:32 MCH 29.4 pg (27-33) 01/26/25 03:32 MCHC 32.8 g/dL (30-55) 01/26/25 03:32 RDW 15.2 % (12.1-15.1) H 01/26/25 03:32 Sodium 133 mmol/L (136-145) L 01/26/25 03:32 Potassium 3.7 mmol/L (3.5-5.1) 01/26/25 03:32 Chloride 100 mmol/L (98-107) 01/26/25 03:32 Carbon Dioxide 24 mmol/L (22-29) 01/26/25 03:32 Anion Gap 12.7 (5-19) 01/26/25 03:32 BUN 17 mg/dL (8-23) 01/26/25 03:32 Creatinine 1.1 mg/dL (0.5-0.9) H 01/26/25 03:32 GFR Calculation Not Reportable 01/26/25 03:32 Last dialysis session:: N/A Treatment plan:: new consult Regimen:: LOADING DOSE OF 1250 MG X 1 TELEPHARMACY STARTED MAINTENANCE DOSE OF 750 MG Q24H Follow up:: WILL CONTINUE TO MONITOR AND FOLLOW UP DAILY
--- NOTE | 2025-01-26 11:08 | PC.CHAP ---
Pastoral Care Encounter/Spiritual Assessment Type of Contact [] Declined lombardi developer visit [] Patient/Family/Request visit [] Outpatient visit [] Follow-up visit [] Physician referral [] Code/Alert [x] Routine visit [] Staff referral [] Actively dying [] Patient sleeping [] Family support [] [] Out of room [] Palliative care [] [] Receiving care in room [] Pre-surgical visit [] Trauma [] Long length of stay [] ICU visit [x] Other: Quarantine, Stop Relational/Emotional Strength [] Patient feels connected with others/family/visitors/staff [] Distress [] Loneliness/isolation [] Abandonment Spirituality of Patient [] Person of Jacklyn [] Attends Mormon of their Jacklyn [] Believes in Prayer [] Reads Bible or Holiness materials [] There are Spiritual issues to be addressed Regulatory And Compliance Technician Interventions [] Prayer [] Active listening [] Non-anxious presence [] Spiritual/emotional support [] Crisis/trauma care [] Spiritual counseling [] Bereavement support [] Provided bereavement packet [] Provided Bible/devotional materials [] Provided toy/stuffed animal, coloring book to patient or family member [] Provided Communion [] Anointing/[place] [] Salvation [] Completed spiritual assessment [] Other: Impact on Illness or Injury [] Angry [] Fearful [] Anxious [] Often cries [] Exhaustion [] Unable to work [] Unable to attend christian [] Unable to walk/stand [] Unable to read [] Unable to drive [] Unable to eat/drink [] Unable to sleep [] Unable to be with family [] Patient intubated [] Other: Summary Time spent with patient
[2025-01-26] MEDS: methylPREDNISolone sod succ 125 mg/2 mL INJ 60 MG IVP (11:31)
[2025-01-26 12:24] LABS: Anion Gap 16.3 (5-19); Blood Urea Nitrogen 19 mg/dL (8-23); Calcium 8.0 mg/dL (8.5-10.5); Carbon Dioxide 22 mmol/L (22-29); Chloride 97 mmol/L (98-107); Glucose 195 mg/dL (65-115); Osmolality Calculated 282 mOsm/kg (285-295); Potassium 3.3 mmol/L (3.5-5.1); Sodium 132 mmol/L (136-145)
[2025-01-26] MEDS: cefTRIAXone 1,000 mg SDV 1000 MG IVP (12:27)
[2025-01-26] MEDS: doxycycline 100 MG in sodium chloride 0.9% (plus) 100 ML IV (12:27)
--- NOTE | 2025-01-26 17:40 | P.PN_ITS ---
Subjective 2 Subjective: Patient was seen in the morning, she was still requiring oxygen through nasal cannula around 2 to 3 L and saturating above 92 to 94% Patient having cough, mild phlegm. Vitals/I&O/Wt Last Vital Signs Temp 97.5 F L 01/26/25 15:58 Pulse 106 H 01/26/25 15:58 Resp 16 01/26/25 15:58 BP 114/70 01/26/25 15:58 Pulse Ox 93 01/26/25 15:58 O2 Del Method Nasal Cannula 01/26/25 15:58 O2 Flow Rate 3 01/26/25 09:41 01/26/25 01/26/25 01/26/25 06:59 14:59 22:59 Intake Total 250 / 2606.99 580 / 580 Output Total 200 / 200 Balance 250 / 2556.99 380 / 380 Weight last 48 hrs Weight 66.905 kg Weight 62.233 kg Weight 62.233 kg Physical Exam 2 Narrative: General: Alert and oriented, lying comfortably without any distress, on 2 to 3 L nasal cannula oxygen supplementation HEENT: Normocephalic, atraumatic, grossly unremarkable exam Cardio: Sinus tachycardia,, normal S1-S2 without any murmurs, rubs, or gallops and JVD normal Respiratory: Bilateral equal air entry with coarse crepitations on the right middle to lower zone, and lower left zone. GI: Abdomen soft, nontender, nondistended, normoactive bowel sounds present all 4 quadrants, Neuro: intact cranial nerves motor and sensory and cerebellar/coordination function without any focal neurological deficit Behavior: Appropriate and cooperative Extremities: Adequate palpable pulses, mild trace edema Data 01/26/25 03:32 01/26/25 11:27 Micro: Microbiology 01/25/25 16:50 Legionella Urinary Antigen - Final Urine,Clean Catch Bacterial Antigens - Final A&P Assessment and plan 1. Community acquired bacterial pneumonia: Patient clinical presentation and signs and symptoms suggestive of complicated pneumonia requiring oxygen therapy -Chest x-ray suggestive of right-sided pneumonia -Respiratory viral panel negative and Legionella urine antigen negative -MRSA nasal swab positive however does not indicate MRSA pneumonia therefore discontinue vancomycin and collect sputum cultures -Continue azithromycin and doxycycline -IV steroids i.e. methylprednisone 60 mg IV daily to continue for 4 to 5 days and can be changed based on patient improvement to oral steroids i.e. prednisone 40 or 60 mg daily, since the patient has severe pneumonia requiring oxygen supplementation - Patient does not have any COPD or asthma therefore to discontinue nebulizations since is not indicated in her condition, and never been diagnosed with it, and never smoked cigarettes, regularly follow-up with her healthcare maintenance. - Early ambulation, frequent repositioning - Aspiration precautions -Monitor hemodynamics specially pulse ox 2. Primary hypertension: - Home medications reconciled and to resume amlodipine 5 mg daily and to monitor patient blood pressure 3. Acquired hypothyroidism: Continue home dose levothyroxine 125 mcg daily TSH normal 4. Gastroesophageal reflux disease without esophagitis: - Continue PPI daily 5. Osteoarthritis, generalized: On leflunomide 20 mg p.o. hold it at the moment Analgesia as needed Currently patient is stable 6. History of aortic valve replacement: - Patient had history of aortic valve replacement twice, currently not on any anticoagulation - I reviewed patient chart and I could not see any aspirin or anticoagulation, the patient did not mention about any history of GI bleed or significant anemia? -To discuss this and retrospective with her opto mechanical technician at [facility] for the rationale for adequate charting? - Home medication reviewed and reconciled after confirmation - Patient also mentioned that she had in the past atrial fibrillation, however the retrospective notes are not complete and no documentation or information about rate control or anticoagulation from patient was evident? 7. Dry mouth: - Continue home medication pilocarpine 5mg PO dly 8. Depression with anxiety: - Continue home medication sertraline 25mg PO dly, alprazolam 0.25mg PO BID PRN 9. Pacemaker: Recently checked, stable continue to monitor 10. Chronic pruritus: Multiple pruritic lesions on the back has been seen with some healing scabs, currently stable Patient following with the rheumatology and on low-dose steroids To continue to follow post discharge with the automobile engine assembler Plan: Of note patient said states she had a tooth removed about a year ago in February 2023, began to have mouth problems and then started developing bumps on her skin that later turn into open wounds . Patient following up outpatient with PCP, rheumatology, and dermatology. CODE STATUS: Full Code GI prophylaxis: Protonix 40mg BID dly VTE prophylaxis: Lovenox 40 daily subcut PDMP PDMP Reviewed: Not Reviewed Attestations 2 Medical Necessity Statement*: Patient will stay more than 2 midnights since she is having severe complicated pneumonia requiring oxygen therapy and IV steroids with further optimization of chronic baseline comorbidities Time Spent in Patient Care: 16 - 35 minutes (>than 50% of time sp ent in counselling and/or direct pt care on unit) . Other Attestations: Patient condition has been discussed at length with the patient/family, I have independently reviewed the chart labs imaging/diagnostics/EKG. the goals of care and code status with the patient/family/NOK/legal passenger representative, and documented accordingly. I have reconciled the medications after confirmation/comorbidities/current clinical condition. The management has been done according to the current clinical condition with respect to patient goals of care and based on recommendations/guidelines. The patient/family has been informed about the current condition and further plan of care. Agreed with the plan of care and understood without any language barrier. Every effort was made to ensure accuracy of assistant case manager. Any obvious errors or omissions should be clarified with the author of the document. Coding Level of Care Code 23942 Diagnoses Community acquired bacterial pneumonia J15.9 Primary hypertension I10 Hypertension type: primary hypertension Acquired hypothyroidism E03.9 Hypothyroidism type: acquired Gastroesophageal reflux disease without esophagitis K21.9 Esophagitis presence: without esophagitis Osteoarthritis, generalized M15.9 History of aortic valve replacement Z95.2 Dry mouth R68.2 Depression with anxiety F41.8 Pacemaker Z95.0 Chronic pruritus L29.9
[2025-01-27] VITALS (13 sets, daily range): BP systolic 121–152; BP diastolic 72–89; PULSE 84–117; RESP 14–28; TEMP 36.3–36.6; O2SAT 81–96
[2025-01-27] MEDS: doxycycline 100 MG in sodium chloride 0.9% (plus) 100 ML IV ×2 (01:37→11:14)
[2025-01-27 04:41] LABS: Hematocrit 29.7 % (36-47); Hemoglobin 9.70 g/dL (11.27-16.99); Mean Corpuscular HGB Conc 32.7 g/dL (30-55); Mean Corpuscular Hemoglobin 29.0 pg (27-33); Mean Corpuscular Volume 88.9 fl (85-98); Nucleated Red Blood Cells % 0 %; Platelet Count 168 10^3/cmm (157-399); Red Blood Count 3.34 10^6/uL (3.85-5.65); White Blood Count 7.44 10^3/uL (3.29-11.43)
[2025-01-27 05:10] LABS: Alanine Aminotransferase 8 U/L (0-33); Albumin Level 2.4 g/dL (3.5-5.2); Alkaline Phosphatase 89 U/L (35-105); Anion Gap 13.9 (5-19); Aspartate Amino Transferase 23 U/L (0-32); Blood Urea Nitrogen 22 mg/dL (8-23); Calcium 8.3 mg/dL (8.5-10.5); Carbon Dioxide 24 mmol/L (22-29); Chloride 101 mmol/L (98-107); Globulin 2.3 g/dL (1.3-4.6); Glucose 131 mg/dL (65-115); Magnesium 2.1 mg/dL (1.7-2.3); Osmolality Calculated 285 mOsm/kg (285-295); Potassium 3.9 mmol/L (3.5-5.1); Sodium 135 mmol/L (136-145); Total Protein 4.7 g/dL (6.6-8.7)
[2025-01-27] MEDS: methylPREDNISolone sod succ 125 mg/2 mL INJ 60 MG IVP (11:14)
[2025-01-27] MEDS: cefTRIAXone 1,000 mg SDV 1000 MG IVP (11:14)
--- NOTE | 2025-01-27 15:59 | P.PN_ITS ---
Subjective 2 Subjective: Patient was seen in the morning, currently is doing well, still requiring oxygen through nasal cannula of around 1 to 2 L able to speak in full sentences. The patient was a bit emotional in the morning since her is also admitted in the same hospital but in a different [place] and she is concerned about his health. She asked me to send a message to her and I respected her decision and went down to send her message to her who felt better taking the message from her Vitals/I&O/Wt Last Vital Signs Temp 97.6 F 01/27/25 11:32 Pulse 96 01/27/25 11:32 Resp 16 01/27/25 11:32 BP 125/82 01/27/25 11:32 Pulse Ox 92 01/27/25 11:32 O2 Del Method Nasal Cannula 01/27/25 11:32 O2 Flow Rate 3 01/27/25 08:13 01/27/25 01/27/25 01/27/25 06:59 14:59 22:59 Intake Total 100 / 1160 580 / 580 Output Total 100 / 500 200 / 200 Balance 0 / 660 380 / 380 Weight last 48 hrs Weight 66.706 kg Weight 66.905 kg Physical Exam 2 Narrative: General: Alert and oriented, lying comfortably without any distress, on 1 to 2 L/min nasal cannula oxygen supplementation HEENT: Normocephalic, atraumatic, grossly unremarkable exam Cardio: Sinus tachycardia,, normal S1-S2 without any murmurs, rubs, or gallops and JVD normal Respiratory: Bilateral equal air entry with coarse crepitations on the right lower middle zone to lower zone and left lower zone, better than yesterday without any wheezes GI: Abdomen soft, nontender, nondistended, normoactive bowel sounds present all 4 quadrants, Neuro: intact cranial nerves motor and sensory and cerebellar/coordination function without any focal neurological deficit Behavior: Appropriate and cooperative Extremities: Adequate palpable pulses, mild trace edema Data 01/27/25 03:16 01/27/25 03:16 A&P Assessment and plan 1. Community acquired bacterial pneumonia: Patient clinical presentation and signs and symptoms suggestive of complicated pneumonia requiring oxygen therapy -Chest x-ray suggestive of right-sided pneumonia -Respiratory viral panel negative and Legionella urine antigen negative -MRSA nasal swab positive however does not indicate MRSA pneumonia therefore discontinue vancomycin and collect sputum cultures -Continue azithromycin and doxycycline for total 5 to 7 days -IV steroids i.e. methylprednisone 60 mg IV daily to continue for 4 to 5 days and can be changed based on patient improvement to oral steroids i.e. prednisone 40 or 60 mg daily, since the patient has severe pneumonia requiring oxygen supplementation - Patient does not have any COPD or asthma therefore to discontinue nebulizations since is not indicated in her condition, and never been diagnosed with it, and never smoked cigarettes, regularly follows-up with her healthcare maintenance. - Early ambulation, frequent repositioning - Aspiration precautions -Monitor hemodynamics specially pulse ox 2. Primary hypertension: - Home medications reconciled and to resume amlodipine 5 mg daily and to monitor patient blood pressure 3. Acquired hypothyroidism: Continue home dose levothyroxine 125 mcg daily TSH normal 4. Gastroesophageal reflux disease without esophagitis: - Continue PPI daily 5. Osteoarthritis, generalized: On leflunomide 20 mg p.o. hold it at the moment Analgesia as needed Currently patient is stable 6. History of aortic valve replacement: - Patient had history of aortic valve replacement twice, currently not on any anticoagulation - I reviewed patient chart and I could not see any aspirin or anticoagulation, the patient did not mention about any history of GI bleed or significant anemia? -To discuss this and retrospective with her senior contract specialist at [facility] for the rationale for adequate charting on 01/28/2025? - Home medication reviewed and reconciled after confirmation - Patient also mentioned that she had in the past atrial fibrillation, however the retrospective notes are not complete and no documentation or information about rate control or anticoagulation from patient was evident? 7. Dry mouth: - Continue home medication pilocarpine 5mg PO dly 8. Depression with anxiety: - Continue home medication sertraline 25mg PO dly, alprazolam 0.25mg PO BID PRN 9. Pacemaker: Recently checked, stable continue to monitor 10. Chronic pruritus: Multiple pruritic lesions on the back has been seen with some healing scabs, currently stable Patient following with the rheumatology and on low-dose steroids To continue to follow post discharge with the apparel manufacture instructor Plan: Of note patient said states she had a tooth removed about a year ago in February 2023, began to have mouth problems and then started developing bumps on her skin that later turn into open wounds . Patient following up outpatient with PCP, rheumatology, and dermatology. chronic anemia, CODE STATUS: Full Code GI prophylaxis: Protonix 40mg daily VTE prophylaxis: Lovenox 40 daily subcut PDMP PDMP Reviewed: Not Reviewed Attestations 2 Medical Necessity Statement*: Patient will stay more than 2 midnights since she is having severe complicated pneumonia requiring oxygen therapy and IV steroids with further optimization of chronic baseline comorbidities. Time Spent in Patient Care: 16 - 35 minutes (>than 50% of time sp ent in counselling and/or direct pt care on unit) . Other Attestations: Patient condition has been discussed at length with the patient/family, I have independently reviewed the chart labs imaging/diagnostics/EKG. the goals of care and code status with the patient/family/NOK/legal digital media representative, and documented accordingly. I have reconciled the medications after confirmation/comorbidities/current clinical condition. The management has been done according to the current clinical condition with respect to patient goals of care and based on recommendations/guidelines. The patient/family has been informed about the current condition and further plan of care. Agreed with the plan of care and understood without any language barrier. Every effort was made to ensure accuracy of estimator. Any obvious errors or omissions should be clarified with the author of the document. Coding Level of Care Code 14391 Diagnoses Community acquired bacterial pneumonia J15.9 Primary hypertension I10 Hypertension type: primary hypertension Acquired hypothyroidism E03.9 Hypothyroidism type: acquired Gastroesophageal reflux disease without esophagitis K21.9 Esophagitis presence: without esophagitis Osteoarthritis, generalized M15.9 History of aortic valve replacement Z95.2 Dry mouth R68.2 Depression with anxiety F41.8 Pacemaker Z95.0 Chronic pruritus L29.9
--- NOTE | 2025-01-27 18:00 | PC.NURSE ---
Patient's oxygen saturation dropped down to 81% while getting up to the bedside commode. This nurse increased patient's oxygen to 6L nasal canula. Patient came up to 90-92% after a few deep breaths and cough. Patient dropped again to 81% when getting up from the bedside commode.
[2025-01-27] MEDS: alum-mag-hydroxide-sime 30 mL UDC PO (21:04)
--- NOTE | 2025-01-27 23:17 | ECG_ITS ---
[facility] Date: 2025-01-27 Pat Name: Jacklyn Schultz Department: Room: 252 Gender: Female [place] Supervisor: : [id number] Requested By: Bryson Jean-Baptiste Order Number: [id number] Reading MD: EVELYN COVARRUBIAS Measurements Intervals [place] Rate: 105 P: -15 NC: 124 QRS: -45 QRSD: 132 T: 52 QT: 356 QTc: 472 Interpretive Statements SINUS TACHYCARDIA POSSIBLE LEFT ATRIAL ENLARGEMENT [-0.1mV P-WAVE IN V1/V2] RIGHT BUNDLE BRANCH BLOCK [120+ ms QRS DURATION, UPRIGHT V1, 40+ ms S IN I/aVL/V4/V5/V6] LEFT ANTERIOR FASCICULAR BLOCK [QRS AXIS <= -45, QR IN I, RS IN II] PROBABLE ANTERIOR MYOCARDIAL INFARCTION , PROBABLY OLD [35 ms Q WAVE IN V3/V4] Compared to ECG 01/25/2025 15:28:54 Left anterior fascicular block now present Myocardial infarct finding now present Atrial fibrillation no longer present Electronically Signed On 01-29-2025 12:00:10 STEWARD/STEWARDESS BATH by EVELYN COVARRUBIAS [email or web address]
--- NOTE | 2025-01-27 23:35 | P.PN_ITS ---
Subjective 2 Subjective: Called to evaluate patient with pneumonia and MRSA swab positive. Her viral panel was negative. Nurse tells me that the Maalox did not help and the patient has ST segment elevation on telemetry monitoring. Twelve-lead EKG is pending. Patient tells me that this is heartburn and she does get some acid in her mouth and throat currently. Vitals/I&O/Wt Last Vital Signs Temp 97.8 F 01/27/25 20:00 Pulse 98 01/27/25 20:00 Resp 18 01/27/25 20:00 BP 134/89 01/27/25 20:00 Pulse Ox 94 01/27/25 20:00 O2 Del Method Room Air 01/27/25 20:00 O2 Flow Rate 2 01/27/25 19:59 01/27/25 01/27/25 01/28/25 14:59 22:59 06:59 Intake Total 580 / 580 355 / 935 Output Total 200 / 200 200 / 400 Balance 380 / 380 155 / 535 Weight last 48 hrs Weight 66.706 kg Weight 66.905 kg Physical Exam 2 Narrative: General well-developed tachypneic female CV regular rate and rhythm Lungs clear to auscultation bilaterally good air movement Abdomen positive bowel tones soft minimal epigastric tenderness Data 01/27/25 03:16 01/27/25 03:16 A&P Assessment and plan 1. GERD (gastroesophageal reflux disease): Will treat with GI cocktail and increase Protonix to 40 mg twice a daily with meals first dose now EKG now sinus rhythm with tachycardia and right bundle branch block 2. Sinus tachycardia: Bolus 500 cc NS. Start incentive spirometer PDMP PDMP Reviewed: Not Reviewed Attestations 2 Medical Necessity Statement*: Patient nacho hospitalized for pneumonia and will require greater than 2 midnights in the hospital Coding Level of Care Code Acute Code for Chg Fwd Diagnoses GERD (gastroesophageal reflux disease) K21.9 Sinus tachycardia R00.0 Time Spent (min) 15 Comment [id number]
[2025-01-28] VITALS (7 sets, daily range): BP systolic 130–171; BP diastolic 84–89; PULSE 85–97; RESP 16–18; TEMP 36.3–36.6; O2SAT 86–97
[2025-01-28] MEDS: lidocaine 2% viscous 15 ML, aluminum-mag hydrox-simethicon 30 ML, sucralfate oral liq 1 GM PO (00:22)
[2025-01-28] MEDS: doxycycline 100 MG in sodium chloride 0.9% (plus) 100 ML IV ×2 (00:23→12:20)
[2025-01-28 05:24] LABS: Hematocrit 33.3 % (36-47); Hemoglobin 10.60 g/dL (11.27-16.99); Mean Corpuscular HGB Conc 31.8 g/dL (30-55); Mean Corpuscular Hemoglobin 28.6 pg (27-33); Mean Corpuscular Volume 89.8 fl (85-98); Nucleated Red Blood Cells % 0 %; Platelet Count 214 10^3/cmm (157-399); Red Blood Count 3.71 10^6/uL (3.85-5.65); White Blood Count 11.04 10^3/uL (3.29-11.43)
[2025-01-28 05:49] LABS: Alanine Aminotransferase 9 U/L (0-33); Albumin Level 2.6 g/dL (3.5-5.2); Alkaline Phosphatase 91 U/L (35-105); Anion Gap 12.6 (5-19); Aspartate Amino Transferase 21 U/L (0-32); Blood Urea Nitrogen 24 mg/dL (8-23); Calcium 9.1 mg/dL (8.5-10.5); Carbon Dioxide 26 mmol/L (22-29); Chloride 105 mmol/L (98-107); Globulin 2.4 g/dL (1.3-4.6); Glucose 132 mg/dL (65-115); Magnesium 2.5 mg/dL (1.7-2.3); Osmolality Calculated 294 mOsm/kg (285-295); Potassium 4.6 mmol/L (3.5-5.1); Sodium 139 mmol/L (136-145); Total Protein 5.0 g/dL (6.6-8.7)
[2025-01-28] MEDS: methylPREDNISolone sod succ 125 mg/2 mL INJ 60 MG IVP (10:50)
[2025-01-28] MEDS: cefTRIAXone 1,000 mg SDV 1000 MG IVP (12:19)
--- NOTE | 2025-01-28 13:15 | PC.SOCIAL ---
IMM Updated Updated pt on IMM. No questions voiced. Provided pt a copy. Initialed, dated, & timed a copy & placed in chart.
--- NOTE | 2025-01-28 18:04 | P.PN_ITS ---
Subjective 2 Subjective: overnight the patient was having heart burn and Maalox did not help the patient. The assigned nurse also showed concerns of ST segment on telemetry which was more of an artifact EKG done by the overnight physician, did not show concerning ST segment elevation. Troponins at the time of admission were not concerning for ACS. Patient being treated as a case of severe pneumonia and currently improving however the patient is emotional since the patient is also admitted and is not doing well. Vitals/I&O/Wt Last Vital Signs Temp 97.8 F 01/28/25 16:00 Pulse 94 01/28/25 16:00 Resp 17 01/28/25 16:00 BP 151/89 01/28/25 16:00 Pulse Ox 97 01/28/25 16:00 O2 Del Method Nasal Cannula 01/28/25 16:00 O2 Flow Rate 4 01/27/25 20:00 01/28/25 01/28/25 01/28/25 06:59 14:59 22:59 Intake Total 220 / 1155 370 / 370 60 / 430 Output Total 450 / 450 Balance 220 / 755 370 / 370 -390 / -20 Weight last 48 hrs Weight 66.933 kg Weight 66.706 kg Physical Exam 2 Narrative: General: Alert and oriented, lying comfortably without any distress, on 1 to 2 L/min nasal cannula oxygen supplementation HEENT: Normocephalic, atraumatic, grossly unremarkable exam Cardio: Sinus tachycardia,, normal S1-S2 without any murmurs, rubs, or gallops and JVD normal Respiratory: Bilateral equal air entry with coarse crepitations on the right lower middle zone to lower zone and left lower zone, better than yesterday with mild wheezes, patient able to speak in full sentences GI: Abdomen soft, nontender, nondistended, normoactive bowel sounds present all 4 quadrants, Neuro: intact cranial nerves motor and sensory and cerebellar/coordination function without any focal neurological deficit Behavior: Appropriate and cooperative Extremities: Adequate palpable pulses, mild trace edema Data 01/28/25 04:26 01/28/25 04:26 A&P Assessment and plan 1. Community acquired bacterial pneumonia: -Chest x-ray suggestive of right-sided pneumonia -Respiratory viral panel negative and Legionella urine antigen negative -MRSA nasal swab positive however does not indicate MRSA pneumonia therefore discontinue vancomycin and collect sputum cultures - patient to add azithromycin, has been on ceftriaxone, Resp viral panel did not show atypical pneum however based on risk and benefits to start the patient and to cont for 3-4 days -IV steroids i.e. methylprednisone 60 mg IV daily received from initial 2 days, currently getting better therefore started on prednisone 40 mg daily and to monitor. - Patient does not have any COPD or asthma therefore to discontinue nebulizations since is not indicated in her condition, and never been diagnosed with it, and never smoked cigarettes, regularly follows-up with her healthcare maintenance. - Early ambulation, frequent repositioning - Aspiration precautions -Monitor hemodynamics specially pulse ox 2. Hypertension: Continue amlodipine 5 mg Monitor blood pressure 3. Hypothyroidism: Continue home dose levothyroxine 125 mcg daily, TSH normal 4. Lumbar disc disease with radiculopathy: Adequate analgesia as per pain scale 5. Gastroesophageal reflux disease without esophagitis: Overnight physician started the patient on increase Protonix to 40 mg twice a daily with meals first dose now EKG now sinus rhythm with tachycardia and right bundle branch block Continue to monitor, reduce steroid dose. 6. History of aortic valve replacement: - Patient had history of aortic valve replacement twice, currently not on any anticoagulation - I reviewed patient chart and I could not see any aspirin or anticoagulation, the patient did not mention about any history of GI bleed or significant anemia? -To discuss this and retrospective with her manager information at [facility] for the rationale for adequate charting, was unable to contact today, and to try later. - Home medication reviewed and reconciled after confirmation. - Patient also mentioned that she had in the past atrial fibrillation, however the retrospective notes are not complete and no documentation or information about rate control or anticoagulation from patient was evident? 7. Depression with anxiety: Continue sertraline 25 mg oral daily and alprazolam 0.25 mg twice daily as needed 8. 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 Patient following up outpatient with PCP, rheumatology, and dermatology. chronic anemia, stable and continue to monitor CODE STATUS: Full Code GI prophylaxis: Protonix 40mg twice daily VTE prophylaxis: Lovenox 40 daily subcut PDMP PDMP Reviewed: Not Reviewed Attestations 2 Medical Necessity Statement*: Patient will stay more than 2 midnights since she is having severe complicated pneumonia requiring oxygen therapy and IV steroids with further optimization of chronic baseline comorbidities. Time Spent in Patient Care: 16 - 35 minutes (>than 50% of time sp ent in counselling and/or direct pt care on unit) . Other Attestations: Patient condition has been discussed at length with the patient/family, I have independently reviewed the chart labs imaging/diagnostics/EKG. the goals of care and code status with the patient/family/NOK/legal truck sales representative, and documented accordingly. I have reconciled the medications after confirmation/comorbidities/current clinical condition. The management has been done according to the current clinical condition with respect to patient goals of care and based on recommendations/guidelines. The patient/family has been informed about the current condition and further plan of care. Agreed with the plan of care and understood without any language barrier. Every effort was made to ensure accuracy of aviation metalsmith. Any obvious errors or omissions should be clarified with the author of the document. Coding Level of Care Code 71051 Diagnoses Community acquired bacterial pneumonia J15.9 Hypertension I10 Hypothyroidism E03.9 Lumbar disc disease with radiculopathy M51.16 Gastroesophageal reflux disease without esophagitis K21.9 Esophagitis presence: without esophagitis History of aortic valve replacement Z95.2 Depression with anxiety F41.8 Chronic pruritus L29.9
[2025-01-29] VITALS (8 sets, daily range): BP systolic 116–161; BP diastolic 72–88; PULSE 81–102; RESP 15–18; TEMP 36.3–36.6; O2SAT 94–97; BMI 25.3
[2025-01-29 05:12] LABS: Hematocrit 34.3 % (36-47); Hemoglobin 11.00 g/dL (11.27-16.99); Mean Corpuscular HGB Conc 32.1 g/dL (30-55); Mean Corpuscular Hemoglobin 28.6 pg (27-33); Mean Corpuscular Volume 89.1 fl (85-98); Nucleated Red Blood Cells % 0 %; Platelet Count 219 10^3/cmm (157-399); Red Blood Count 3.85 10^6/uL (3.85-5.65); White Blood Count 8.09 10^3/uL (3.29-11.43)
[2025-01-29 05:45] LABS: Alanine Aminotransferase 10 U/L (0-33); Albumin Level 2.7 g/dL (3.5-5.2); Alkaline Phosphatase 94 U/L (35-105); Anion Gap 12.9 (5-19); Aspartate Amino Transferase 24 U/L (0-32); Blood Urea Nitrogen 31 mg/dL (8-23); Calcium 8.8 mg/dL (8.5-10.5); Carbon Dioxide 26 mmol/L (22-29); Chloride 105 mmol/L (98-107); Globulin 2.4 g/dL (1.3-4.6); Glucose 118 mg/dL (65-115); Osmolality Calculated 296 mOsm/kg (285-295); Potassium 4.9 mmol/L (3.5-5.1); Sodium 139 mmol/L (136-145); Total Protein 5.1 g/dL (6.6-8.7)
[2025-01-29] MEDS: cefTRIAXone 1,000 mg SDV 1000 MG IVP (12:31)
--- NOTE | 2025-01-29 18:42 | P.DS_ITS ---
Discharge Providers Date of Admission: 01/25/25 12:18 Date of Discharge: January 29, 2025 Attending Provider at Admission: Joseph Langston Attending Provider at Discharge: Amanda Hylton MD Primary Care Provider: Fredrick Aldridge MD Diagnoses at Discharge Discharge Diagnosis 1. Community acquired bacterial pneumonia: 2. Primary hypertension: 3. Acquired hypothyroidism: 4. Lumbar disc disease with radiculopathy: 5. Gastroesophageal reflux disease without esophagitis: 6. History of aortic valve replacement: 7. Depression with anxiety: 8. Chronic pruritus: Reason for Visit Reason for Visit: SOB Brief History: As per the admitting physician and the retrospective note review: Jacklyn Schultz is a 84 year old female w/ pmhx of HTN, hypothyroidism, GERD, polyarthralgia, and pacemaker presents to the ED with c/o SOB. Patient reports her shortness of breath began about a week ago, reports dry hacking cough and wheezing. Associated signs and symptoms of diarrhea, increased weakness, and chills. She is currently requiring 2L NC, son noted at bedside during my evaluation. She denies exposure to any known sick persons. She denies fever, headache, chest pain palpitations, nasal congestion, ABD pain, N/V/C, changes in urinary habits, and recent medication changes. Son at bedside reports that Ms. Schultz (who is hospitalized currently and very weak) is who takes care of her at home. He is requesting other available outpatient discharge options. Patient to be admitted under inpatient status with hospitalist services for further medical management and care of community-acquired pneumonia and hypoxia. While in ED a CBC, CMP, lactic acid, troponin series were obtained, reviewed and results as follows: WBC 9.73, Neut 8.02 otherwise unremarkable. Na 132, K 3.8, Osmo 277, glucose 132. Lactic acid, . Baseline troponin 37, 2-hour troponin 34.01, delta troponin T -2.99. Albumin 2.7, calcium 8.4, protein 5.5. While in ED patient received following medications: 1,866mL bolus, azithromycin 500 mg IV, ceftriaxone 1000 mg IVP. Hospital Course Hospital Course During patient hospital stay sHe was requiring oxygen therapy and was treated as a case of severe community-acquired pneumonia. The patient had chest x-ray suggestive of right-sided pneumonia. And clinical exam showed lateral coarse crackles which were more on the right side. Her MRSA swab was positive however this did not indicate MRSA pneumonia. Patient was kept on azithromycin and doxycycline and given IV steroids. Oxygen supplementation was provided accordingly. Initially she was given DuoNebs however further history reviewed revealed that the patient does not have any COPD, non-smoker and does not have any asthma in the past therefore DuoNebs were not indicated. The patient medications were reconciled according to her comorbidities and after confirmation of her home medications it was continued. During hospital stay the patient was at some point emotional since her was also admitted and was not doing well. She was given alprazolam as needed for her emotional distress and it made her calm. Her respiratory viral panel and Legionella urine antibodies were negative. She also reported to have dry mouth however it was getting better. After involving casey saw operator patient was discharged to [facility]. After establishing the stability of the patient, and reconciling her discharge medications treatment of pneumonia discharge was proceeded. He was discharged on antibiotics and steroids for pneumonia. Medications were reconciled after confirmation and according to patient comorbidities and appropriate follow-ups and referrals were provided at the time of discharge. Patient condition has been discussed at length with the patient/family, I have independently reviewed the chart labs imaging/diagnostics/EKG. the goals of care and code status with the patient/family/NOK/legal outside sales representative insurance, and documented accordingly. The management has been done according to the current clinical condition with respect to patient goals of care and based on recommendations/guidelines. The patient/family has been informed about the current condition and further plan of care. Agreed with the plan of care and understood without any language barrier. The patient really appreciated the medical team care provided to her. Every effort was made to ensure accuracy of industrial design engineer. Any obvious errors or omissions should be clarified with the author of the document. Physical Exam Narrative: General: Alert and oriented, lying comfortably without any distress, on 1 to 2 L/min nasal cannula oxygen supplementation HEENT: Normocephalic, atraumatic, grossly unremarkable exam Cardio: Sinus tachycardia,, normal S1-S2 without any murmurs, rubs, or gallops and JVD normal Respiratory: Bilateral equal air entry with coarse crepitations on the right lower middle zone to lower zone and left lower zone, better than yesterday with mild wheezes, patient able to speak in full sentences GI: Abdomen soft, nontender, nondistended, normoactive bowel sounds present all 4 quadrants, Neuro: intact cranial nerves motor and sensory and cerebellar/coordination function without any focal neurological deficit Behavior: Appropriate and cooperative Extremities: Adequate palpable pulses, mild trace edema Discharge Data Studies Completed and Pending Completed Studies During Hospitalization Category Date Time Status XR chest 1V portable [id number] Stat Exams 01/25/25 10:58 Completed Radiology Impressions Chest X-Ray 01/25/25 10:58 Impression: 1. Patchy opacity in periphery of right lung which may represent acute pneumonia. 2. Cardiomegaly, atherosclerosis and cardiac pacemaker. Laboratory Results WBC 8.09 10^3/uL (3.29-11.43) 01/29/25 05:03 RBC 3.85 10^6/uL (3.85-5.65) 01/29/25 05:03 Hgb 11.00 g/dL (11.27-16.99) L 01/29/25 05:03 Hct 34.3 % (36-47) L 01/29/25 05:03 MCV 89.1 fl (85-98) 01/29/25 05:03 MCH 28.6 pg (27-33) 01/29/25 05:03 MCHC 32.1 g/dL (30-55) 01/29/25 05:03 RDW 15.4 % (12.1-15.1) H 01/29/25 05:03 Plt Count 219 10^3/cmm (157-399) 01/29/25 05:03 MPV 9.7 fL (7.4-10.4) 01/29/25 05:03 Neut % (Auto) 90.2 % 01/29/25 05:03 Lymph % (Auto) 6.6 % 01/29/25 05:03 [place] % (Auto) 2.5 % 01/29/25 05:03 Eos % (Auto) 0.0 % 01/29/25 05:03 Baso % (Auto) 0.1 % 01/29/25 05:03 Neut # (Auto) 7.30 10^3/uL (1.8-7.7) 01/29/25 05:03 Lymph # (Auto) 0.5 10^3/uL (0.8-4.8) L 01/29/25 05:03 [place] # (Auto) 0.2 10^3/uL (0.2-0.9) 01/29/25 05:03 Eos # (Auto) 0.0 10^3/uL (0.0-0.8) 01/29/25 05:03 Baso # (Auto) 0.0 10^3/uL (0.0-0.1) 01/29/25 05:03 Nucleated RBC % (auto) 0 % 01/29/25 05:03 Nucleated RBCs # 0.0 /100WBC 01/29/25 05:03 Sodium 139 mmol/L (136-145) 01/29/25 05:03 Potassium 4.9 mmol/L (3.5-5.1) 01/29/25 05:03 Chloride 105 mmol/L (98-107) 01/29/25 05:03 Carbon Dioxide 26 mmol/L (22-29) 01/29/25 05:03 Anion Gap 12.9 (5-19) 01/29/25 05:03 BUN 31 mg/dL (8-23) H 01/29/25 05:03 Creatinine 1.2 mg/dL (0.5-0.9) H 01/29/25 05:03 GFR Calculation Not Reportable 01/29/25 05:03 Glucose 118 mg/dL (65-115) H 01/29/25 05:03 Calculated Osmolality 296 mOsm/kg (285-295) H 01/29/25 05:03 Lactic Acid 2.4 mmol/L (0.5-2.2) H 01/25/25 11:11 Lactic Acid (Sepsis) 2.4 mmol/L (0.5-2.2) H 01/25/25 14:03 Calcium 8.8 mg/dL (8.5-10.5) 01/29/25 05:03 Magnesium 2.5 mg/dL (1.7-2.3) H 01/28/25 04:26 Total Bilirubin 0.3 mg/dL (0.15-1.2) 01/29/25 05:03 AST 24 U/L (0-32) 01/29/25 05:03 ALT 10 U/L (0-33) 01/29/25 05:03 Alkaline Phosphatase 94 U/L (35-105) 01/29/25 05:03 Troponin T Baseline 37 ng/L (0-10) H 01/25/25 11:11 Troponin T 60 Minute 34.01 ng/L (0-10) H 01/25/25 12:16 Delta Troponin T -2.99 ABS# (0-10) L 01/25/25 12:16 Troponin T Hi Sens 6Hr 33.38 ng/L (0-10) H 01/25/25 17:32 Troponin T Hi Sens 6Hr Delta -3.62 ng/L (0-12) L 01/25/25 17:32 Total Protein 5.1 g/dL (6.6-8.7) L 01/29/25 05:03 Albumin 2.7 g/dL (3.5-5.2) L 01/29/25 05:03 Globulin 2.4 g/dL (1.3-4.6) 01/29/25 05:03 TSH 3.48 uIU/mL (0.27-4.20) 01/25/25 11:11 Urine Color Dark yellow (Yellow) A 01/25/25 16:50 Urine Appearance Clear (CLEAR) 01/25/25 16:50 Urine pH 6.0 (5-7) 01/25/25 16:50 Ur Specific [place] 1.023 (1.005-1.030) 01/25/25 16:50 Urine Protein 1+ (Negative) A 01/25/25 16:50 Urine Glucose (UA) Negative (Normal) 01/25/25 16:50 Urine Ketones Trace (Negative) 01/25/25 16:50 Urine Blood Negative (Negative) 01/25/25 16:50 Urine Nitrate Negative (Negative) 01/25/25 16:50 Urine Bilirubin Negative (Negative) 01/25/25 16:50 Urine Urobilinogen 1.0 mg/dL (Negative) 01/25/25 16:50 Ur Leukocyte Esterase 1+ (Negative) A 01/25/25 16:50 Urine RBC 0-2 /hpf (0-2) 01/25/25 16:50 Urine WBC 6-10 /hpf (0-5) 01/25/25 16:50 Ur Squamous Epith Cells 11-20 /hpf (0-5) H 01/25/25 16:50 Amorphous Sediment Not Reportable 01/25/25 16:50 Urine Bacteria 3+ /hpf (NONE) H 01/25/25 16:50 Hyaline Casts 4.52 /lpf 01/25/25 16:50 Nasal MRSA (PCR) [place] detected (Not Detecte) A 01/25/25 16:40 Adenovirus (PCR) Not detected (NOT DETECT) 01/25/25 16:40 C. pneumoniae DNA (PCR) Not detected (NOT DETECT) 01/25/25 16:40 Coronavirus 229E (PCR) Not detected (NOT DETECT) 01/25/25 16:40 Human Metapneumovir PCR Not detected (NOT DETECT) 01/25/25 16:40 Influenza A (H1) PCR Not detected (NOT DETECT) 01/25/25 16:40 Influenza A (PCR) Negative (Negative) 01/25/25 11:27 Influ A (H1/09) PCR Not detected (NOT DETECT) 01/25/25 16:40 Influenza A (H3) PCR Not detected (NOT DETECT) 01/25/25 16:40 Influenza Type A (PCR) Not detected (NOT DETECT) 01/25/25 16:40 Influenza Type B (PCR) Not detected (NOT DETECT) 01/25/25 16:40 M. pneumoniae (PCR) Not detected (NOT DETECT) 01/25/25 16:40 Parainfluenza 1 (PCR) Not detected (NOT DETECT) 01/25/25 16:40 Parainfluenza 2 (PCR) Not detected (NOT DETECT) 01/25/25 16:40 Parainfluenza 3 (PCR) Not detected (NOT DETECT) 01/25/25 16:40 Parainfluenza 4 (PCR) Not detected (NOT DETECT) 01/25/25 16:40 RSV (PCR) Negative (Negative) 01/25/25 11:27 RSV Type A (PCR) Not detected (NOT DETECT) 01/25/25 16:40 RSV Type B (PCR) Not detected (NOT DETECT) 01/25/25 16:40 Entero/Rhino (PCR) Not detected (NOT DETECT) 01/25/25 16:40 SARS-CoV-2 (PCR) Not detected (NOT DETECT) 01/25/25 16:40 Vitals Last Vital Signs Temp 97.5 F L 01/29/25 17:50 Pulse 89 01/29/25 17:50 Resp 18 01/29/25 17:50 BP 161/88 01/29/25 17:50 Pulse Ox 94 01/29/25 17:50 O2 Del Method Nasal Cannula 01/29/25 16:40 O2 Flow Rate 2 01/29/25 09:07 Discharge Plan Discharge Patient Disposition: Xfer SNF Condition: Stable Prescriptions: New prednisone 20 mg Tablet 40 mg PO Q24H 4 Days Qty: 8 0RF Robitussin Cough-Chest Baldomero DM 10-200 mg capsule 1 tab-cap PO Q8H PRN (Reason: cough) 10 Days Qty: 30 0RF levofloxacin 750 mg tablet 750 mg PO DAILY 7 Days Qty: 7 0RF albuterol sulfate 0.63 mg/3 mL solution for nebulization 0.63 mg inhalation Q8H PRN (Reason: shortness of breath or wheezing) Qty: 75 0RF (DME) nebulizer accessories Kit See Rx Instructions .Route Qty: 1 0RF Rx Instructions: As directed Aquaphor Healing 41 % ointment 1 applic topical DAILY PRN (Reason: dry skin) 60 Days Qty: 20 0RF hydrocodone-acetaminophen 5-325 mg tablet 1 tab PO DAILY PRN (Reason: pain) Qty: 10 0RF Continued triamcinolone acetonide 0.1 % cream 1 applic topical BID PRN (Reason: itching) Qty: 30 1RF pilocarpine HCl 5 mg tablet 5 mg PO TID Qty: 90 3RF leflunomide 20 mg tablet 20 mg PO DAILY Qty: 90 1RF propafenone 150 mg tablet 150 mg PO Q8H famotidine 40 mg tablet 40 mg PO DAILY PRN (Reason: upset stomach) isosorbide mononitrate 30 mg tablet extended release 24 hr 30 mg PO QAM amlodipine 5 mg tablet 5 mg PO QPM cyanocobalamin (vitamin B-12) 1,000 mcg/mL solution 1,000 mcg IM Q30D levothyroxine 125 mcg tablet 125 mcg PO QAM sertraline 25 mg tablet 25 mg PO DAILY tizanidine 4 mg tablet 2 mg PO Q6H PRN (Reason: muscle spasticity) Qty: 20 0RF Rx Instructions: do not exceed 3 doses per 24 hrs permethrin 5 % cream See Rx Instructions .ROUTE .COMPLEX Rx Instructions: CHANGE bed linens tonight. shower. apply ALL over from neck down. sleep with this ON. shower again in THE morning and CHANGE bed linens again, REPEAT in ONE week. gabapentin 300 mg capsule 300 mg PO BEDTIME alprazolam 0.25 mg tablet 0.25 mg PO BID PRN (Reason: anxiety) 10 Days Qty: 20 1RF Discharge Order = DC NOW: Discharge Order (Routine); Ordered 01/29/25 Ordered By: Amanda Hylton Referrals: [facility] [Outside] Fredrick Aldridge MD [Primary Care Provider, Family Practice] Discharge Diet: Advance as tolerated Discharge Activity: Resume usual activity Patient Instructions: Hydrocodone/Acetaminophen (By mouth) (Vicodin, [place]), Prednisone (By mouth), Levofloxacin (By mouth), Opioid Safety, Patient Portal & [place] Instructions Discharge Attestations Time Spent in Discharge Care*: greater than 30 min Specific Discharge Activities: educating patient, educating and/or supporting family/caregiver, discussing with pcp/other providers, discussing with watch case polisher/social workers/dc planners, documenting/other paperwork and evaluating patient/reviewing data Status at Discharge: Cognitive status at discharge: cognitively intact , Behavioral status at discharge: cooperative , Functional status at discharge: other assisted ambulation , Overall status at discharge: patient is progressing back to baseline Quality Metrics Clinical Quality Measures [ No reported AMI, CVA or VTE this stay] Coding Level of Care Code 73351 Diagnoses Community acquired bacterial pneumonia J15.9 Primary hypertension I10 Hypertension type: primary hypertension Acquired hypothyroidism E03.9 Hypothyroidism type: acquired Lumbar disc disease with radiculopathy M51.16 Gastroesophageal reflux disease without esophagitis K21.9 Esophagitis presence: without esophagitis History of aortic valve replacement Z95.2 Depression with anxiety F41.8 Chronic pruritus L29.9
== END 2025-01-29 17:51 | disposition skilled nursing facility (03) | DRG 194 ==
LOC: ER 12:17 → MEDSURG 14:27
PROVIDERS: Admitting Provider Internal Medicine; Emergency Provider Family Medicine; PCP Family Medicine; Visit Provider Student in an Organized Health Care Education/Training Program
DX: J15.9 Unspecified bacterial pneumonia (principal); E87.1 Hypo-osmolality and hyponatremia; R19.7 Diarrhea, unspecified; R68.2 Dry mouth, unspecified; M15.9 Polyosteoarthritis, unspecified; K21.9 Gastro-esophageal reflux disease without esophagitis; F41.8 Other specified anxiety disorders; I10 Essential (primary) hypertension; R00.0 Tachycardia, unspecified; M51.16 Intervertebral disc disorders with radiculopathy, lumbar region; M81.0 Age-related osteoporosis without current pathological fracture; R09.02 Hypoxemia; L29.9 Pruritus, unspecified; I45.10 Unspecified right bundle-branch block; E03.9 Hypothyroidism, unspecified; Z79.890 Hormone replacement therapy; Z79.899 Other long term (current) drug therapy; Z95.2 Presence of prosthetic heart valve; Z88.5 Allergy status to narcotic agent; Z88.7 Allergy status to serum and vaccine; Z88.8 Allergy status to other drugs, medicaments and biological substances; Z86.73 Personal history of transient ischemic attack (TIA), and cerebral infarction without residual deficits; Z95.0 Presence of cardiac pacemaker; Z96.641 Presence of right artificial hip joint; Z90.49 Acquired absence of other specified parts of digestive tract; Z11.52 Encounter for screening for COVID-19; Z22.322 Carrier or suspected carrier of Methicillin resistant Staphylococcus aureus
CPT/HCPCS: 36415; 71045; 80048; 80053; 81001; 83605; 83735; 84443; 84484; 85025; 86403; 87449; 87486; 87581; 87633; 87637; 93005; 94640; 94669; 96365; 96372; 96375; 97110; 97161; 97530; 99285; J0456; J0696; J1650; J2919; J3373; J3490; J7030; J7050; J7512; J7626; J9999

== ENCOUNTER 2025-01-30 09:45 | Inpatient (IN) | payer MEDICARE, SELFPAY ==
[2025-01-30] VITALS (12 sets, daily range): BP systolic 104–171; BP diastolic 55–128; PULSE 78–113; RESP 16–23; TEMP 36.4–36.6; O2SAT 91–99; BMI 24.9; BMI 23.7
--- NOTE | 2025-01-30 09:49 | XR_ITS ---
WS: [id number] Portable AP upright chest, 01/30/2025 Clinical Data: Shortness of breath Comparison: Portable chest, 01/25/2025 Findings: The patchy opacity involving the entire right lung and patchy opacity involving the left lower lobe remain the same. The heart is enlarged. The aortic arch and descending thoracic aorta show tortuosity. There is a hiatal hernia behind the heart. There are midline sternotomy sutures and an artificial cardiac valve. The 2-lead cardiac pacemaker remains the same. There is vertebroplasty cement in the lower thoracic vertebral bodies. XR/XR chest 1V portable [id number] Impression: No change from prior chest x-ray.
--- NOTE | 2025-01-30 09:51 | W.ED.SOB ---
HPI - SOB/Dyspnea General: Chief Complaint: Shortness of Breath/Dyspnea Stated Complaint: SOB History of Present Illness: HPI Narrative: 84-year-old female with a history of recent admission with pneumonia, transferred to a senior care, atrial fibrillation with pacemaker placement, anxiety, depression, polyarthralgia, osteoporosis, aortic valve replacement, CVA in the past, GERD, hypothyroidism, hypertension who presents to the emergency room by ambulance from senior care with concerns for worsening shortness of breath. They were also concerned because she has a pacemaker and her heart rate got up to 100. This was per EMS. She seems to be quite a bit improved now. Lungs are clear. She is on 4 L nasal cannula on presentation. No chest pain. No altered mental status. Related Data Home Medications ?Medication ?Instructions ?Recorded ?Confirmed amlodipine 5 mg tablet 5 mg PO QPM 06/09/24 01/25/25 cyanocobalamin (vitamin B-12) 1,000 mcg IM Q30D 06/09/24 01/25/25 1,000 mcg/mL injection solution famotidine 40 mg tablet 40 mg PO DAILY PRN upset stomach 06/09/24 01/25/25 isosorbide mononitrate 30 mg 30 mg PO QAM 06/09/24 01/25/25 tablet,extended release 24 hr levothyroxine 125 mcg tablet 125 mcg PO QAM 06/09/24 01/25/25 propafenone 150 mg tablet 150 mg PO Q8H 06/09/24 01/25/25 sertraline 25 mg tablet 25 mg PO DAILY 06/09/24 01/25/25 gabapentin 300 mg capsule 300 mg PO BEDTIME 01/25/25 01/25/25 permethrin 5 % topical cream See Rx Instructions .Route .COMPLEX 01/25/25 01/25/25 Previous Rx's ?Medication ?Instructions ?Recorded tizanidine 4 mg tablet 2 mg (1/2 x 4 mg) PO Q6H PRN 12/08/24 muscle spasticity #20 tabs leflunomide 20 mg tablet 20 mg PO DAILY #90 tabs 12/13/24 pilocarpine HCl 5 mg tablet 5 mg PO TID #90 tabs 12/13/24 triamcinolone acetonide 0.1 % 1 applic topical BID PRN itching 12/19/24 topical cream #30 grams albuterol sulfate 0.63 mg/3 mL 0.63 mg (3 mL) inhalation Q8H PRN 01/29/25 solution for nebulization shortness of breath or wheezing #75 mL alprazolam 0.25 mg tablet 0.25 mg PO BID PRN anxiety 10 days 01/29/25 #20 tabs dextromethorphan-guaifenesin 10 1 tab-cap PO Q8H PRN cough 10 days 01/29/25 mg-200 mg capsule (Robitussin #30 caps Cough-Chest Congestion DM) hydrocodone 5 mg-acetaminophen 325 1 tab PO DAILY PRN pain #10 tabs 01/29/25 mg tablet levofloxacin 750 mg tablet 750 mg PO DAILY 7 days #7 tabs 01/29/25 nebulizer accessories #1 ea 01/29/25 prednisone 20 mg tablet 40 mg (2 x 20 mg) PO Q24H 4 days 01/29/25 #8 tabs white petrolatum 41 % topical 1 applic topical DAILY PRN dry 01/29/25 ointment (Aquaphor Healing) skin 60 days #20 grams Allergies Allergy/AdvReac Type Severity Reaction Status Date / Time LAURENT Inhibitors Allergy Unknown Unkown Verified 01/25/25 11:03 ezetimibe Allergy Unknown Unknown Verified 01/25/25 11:03 codeine Allergy ADR-Headach Verified 01/25/25 11:03 e COVID-19 vaccine, Allergy hives Verified 01/25/25 11:03 recombinant (Nova (From Novavax COVID19 Vac,Adj(Unapp)) Vmopqoy-YKA-AtK Reductase Allergy ADV-Weaknes Verified 01/25/25 11:03 Inhibitor (Ueungpb-Iag-Aqa s Reductase Inhibitor) vaccine adjuvant system, Allergy hives Verified 01/25/25 11:03 ISCOM-Matrix (From Novavax COVID19 Vac,Adj(Unapp)) Review of Systems Narrative: Constitutional symptoms: Negative except as documented in HPI. Skin symptoms: Negative except as documented in HPI. Eye symptoms: Negative except as documented in HPI. ENMT symptoms: Negative except as documented in HPI. Respiratory symptoms: Negative except as documented in HPI. Cardiovascular symptoms: Negative except as documented in HPI. Gastrointestinal symptoms: Negative except as documented in HPI. Genitourinary symptoms: Negative except as documented in HPI. Musculoskeletal symptoms: Negative except as documented in HPI. Neurologic symptoms: Negative except as documented in HPI. Psychiatric symptoms: Negative except as documented in HPI. Endocrine symptoms: Negative except as documented in HPI. PFSH ED PFSH: Medical History (Updated 01/30/25 @ 13:05 by Terrie Armstrong MD) Chronic pruritus Immunization counseling High risk medication use Osteoarthritis, generalized Polyarthralgia Osteoporosis Traumatic compression fracture of eleventh thoracic vertebra History of CVA (cerebrovascular accident) GERD (gastroesophageal reflux disease) Hypothyroidism Hypertension Pacemaker Surgical History History of hip replacement rt Aortic valve replaced H/O eye surgery Hx of cataract surgery Hx of tonsillectomy S/P cholecystectomy History of open heart surgery H/O: hysterectomy H/O vaginal surgery History of knee replacement History of ankle surgery Family History Mother Stroke Social History Smoking and tobacco/nicotine status: never used tobacco/nicotine Second hand smoke exposure: No Alcohol intake: current Alcohol intake frequency: holidays/special occasions only Substance/Drug Use: never Female Reproductive History: Para: 2 Spontaneous abortions: No Physical Exam Narrative: EXAM NARRATIVE: General: Alert, no acute distress. Skin: Warm, dry. Head: Normocephalic, atraumatic. Neck: Supple, trachea midline. Eye: Extraocular movements are intact. Ears, nose, mouth and throat: mucosa moist. Cardiovascular: Regular, Normal peripheral perfusion. Respiratory: Lungs are clear to auscultation, respirations are non-labored, breath sounds are equal, Symmetrical chest wall expansion. Gastrointestinal: Soft, Nontender, Non distended Musculoskeletal: Normal ROM, no deformity. Neurological: Alert and oriented, No focal neurological deficit observed. Psychiatric: Cooperative, appropriate mood & affect. Course Vital Signs: Vital signs: Vital Signs Temperature 97.9 F 01/30/25 11:12 Pulse Rate 109 H 01/30/25 11:34 Respiratory Rate 16 01/30/25 11:34 Blood Pressure 143/94 01/30/25 11:34 Pulse Oximetry 95 01/30/25 11:34 Oxygen Delivery Me thod Nasal Cannula 01/30/25 11:34 Oxygen Flow Rate 5 01/30/25 11:34 MDM - SOB/Dyspnea Medical Decision Making Medical decision making Patient's reason for coming to the emergency room: Shortness of breath Social determinants: patient is retired. is currently admitted to the hospital I reviewed the patient's medical record. 84-year-old female with a history of recent admission with pneumonia, transferred to a senior care, atrial fibrillation with pacemaker placement, anxiety, depression, polyarthralgia, osteoporosis, aortic valve replacement, CVA in the past, GERD, hypothyroidism, hypertension I reviewed the patient's current home meds Patient went to the senior care on aquin Alternate historians: None Differential diagnosis for patient with shortness of breath includes but is not limited to and based on the above HPI, review of systems and physical exam: Pneumonia. Bronchitis. Asthma or COPD with acute exacerbation. Acute coronary syndrome / [place]. Pulmonary embolism. Anxiety. Congestive heart failure. Viral infections including influenza and Covid-19. Atrial fibrillation. Anxiety. Pleural effusion. Pneumothorax. Orders placed to evaluate differential diagnosis based on the above differential, HPI and physical exam EKG: Time 9:53 AM. Rate 110. Sinus tachycardia, nonspecific ST changes, no ectopy, right bundle branch block, This was reviewed and interpreted by myself the ER physician At 9:57 AM Repeat EKG: time 11:14 AM. Rate 102. sinus tachycardia, No ST-T changes, no ectopy, right bundle branch block, This was reviewed and interpreted by myself the ER physician at 11:17 AM. No significant changes from EKG done previously today in emergency room. Chest x-ray: Patchy infiltrate appears slightly improved from previous chest x-ray. Sternotomy wires present. Pacemaker present. This was reviewed and interpreted by myself the emergency room physician. I also reviewed the radiology report. Lab Review: Laboratory results were reviewed and interpreted by myself the emergency room physician. No leukocytosis. No anemia. BUN and creatinine are mildly elevated at 29 and 1.2. This is at her baseline. Assessment of risk: Level of risk: High risk patient. Elderly. Multiple comorbidities. Recent admission to the hospitalist. Hospitalization considerations: Hospital Reexamination: Patient continues to have excessive oxygen requirement. Respiratory therapy evaluated for full-time oxygen at the senior care and she is requiring at least 5 L at rest and this much is 8 or 9 L when she got up. There will not be sufficient support for this at the senior care. No altered mental status. No focal motor deficits. Consultation: I spoke with Dr. Hylton who is on-call for the hospitalist service who agrees to admission. Assessment and plan: Hypoxemia Pneumonia ?Patient has increased oxygen requirements. Currently receiving Levaquin. -I discussed the patient with the hospitalist on-call who is admitting the patient. - Discussed findings and plan with patient. Answered any questions. - All laboratory values were reviewed and interpreted personally by myself, the ER physician - All imaging was reviewed and interpreted personally by myself, the ER physician. - Evaluation and treatment of this problem were appropriate in the emergency setting Lab Data 01/30/25 09:57 01/30/25 09:57 Labs/Radiology: Radiology Impressions Chest X-Ray 01/30/25 09:49 Impression: No change from prior chest x-ray. Laboratory Results WBC 7.35 10^3/uL (3.29-11.43) 01/30/25 09:57 RBC 4.14 10^6/uL (3.85-5.65) 01/30/25 09:57 Hgb 11.90 g/dL (11.27-16.99) 01/30/25 09:57 Hct 36.4 % (36-47) 01/30/25 09:57 MCV 87.9 fl (85-98) 01/30/25 09:57 MCH 28.7 pg (27-33) 01/30/25 09:57 MCHC 32.7 g/dL (30-55) 01/30/25 09:57 RDW 15.2 % (12.1-15.1) H 01/30/25 09:57 Plt Count 278 10^3/cmm (157-399) 01/30/25 09:57 MPV 9.7 fL (7.4-10.4) 01/30/25 09:57 Neut % (Auto) 89.1 % 01/30/25 09:57 Lymph % (Auto) 6.4 % 01/30/25 09:57 [place] % (Auto) 3.7 % 01/30/25 09:57 Eos % (Auto) 0.0 % 01/30/25 09:57 Baso % (Auto) 0.1 % 01/30/25 09:57 Neut # (Auto) 6.55 10^3/uL (1.8-7.7) 01/30/25 09:57 Lymph # (Auto) 0.5 10^3/uL (0.8-4.8) L 01/30/25 09:57 [place] # (Auto) 0.3 10^3/uL (0.2-0.9) 01/30/25 09:57 Eos # (Auto) 0.0 10^3/uL (0.0-0.8) 01/30/25 09:57 Baso # (Auto) 0.0 10^3/uL (0.0-0.1) 01/30/25 09:57 Nucleated RBC % (auto) 0 % 01/30/25 09:57 Nucleated RBCs # 0.0 /100WBC 01/30/25 09:57 Specimen Type Arterial 01/30/25 09:49 Sample Site Radial, right 01/30/25 09:49 ABG pH 7.49 (7.35-7.45) H 01/30/25 09:49 ABG pCO2 34.3 mmHg (35-45) L 01/30/25 09:49 ABG pO2 68.1 mmHg (80.0-100.0) L 01/30/25 09:49 ABG HCO3 26.3 mmol/L (22-26) H 01/30/25 09:49 ABG O2 Saturation 94.6 01/30/25 09:49 ABG Base Excess 3.2 mmol/L (-2.0-2.0) H 01/30/25 09:49 Russ Test Pos 01/30/25 09:49 A-a O2 Gradient 5.1 mmHg (5-10) 01/30/25 09:49 Hematocrit 37.6 % (37-47) 01/30/25 09:49 Hgb O2 Saturation 92.8 % (95-100) L 01/30/25 09:49 Carboxyhemoglobin 0.7 %THgb (0.4-20.1) 01/30/25 09:49 Methemoglobin 1.2 % (0.4-1.5) 01/30/25 09:49 Total Hemoglobin 12.3 g/dL (12-16) 01/30/25 09:49 Sodium 137.0 mmol/L (131-143) 01/30/25 09:49 Potassium 4.4 mmol/L (3.5-5.0) 01/30/25 09:49 Glucose 113.0 mg/dL (70-115) 01/30/25 09:49 Ionized Calcium 1.2 mmol/L (1.1-1.4) 01/30/25 09:49 O2 Delivery Device Nc 01/30/25 09:49 O2 Liters/Min 4.5 % 01/30/25 09:49 Solar Energy System Installer ID [place] 01/30/25 09:49 Sodium 138 mmol/L (136-145) 01/30/25 09:57 Potassium 4.7 mmol/L (3.5-5.1) 01/30/25 09:57 Chloride 102 mmol/L (98-107) 01/30/25 09:57 Carbon Dioxide 24 mmol/L (22-29) 01/30/25 09:57 Anion Gap 16.7 (5-19) 01/30/25 09:57 BUN 29 mg/dL (8-23) H 01/30/25 09:57 Creatinine 1.2 mg/dL (0.5-0.9) H 01/30/25 09:57 GFR Calculation Not Reportable 01/30/25 09:57 Glucose 117 mg/dL (65-115) H 01/30/25 09:57 Calculated Osmolality 293 mOsm/kg (285-295) 01/30/25 09:57 Lactic Acid 2.2 mmol/L (0.5-2.2) 01/30/25 09:57 Calcium 8.9 mg/dL (8.5-10.5) 01/30/25 09:57 Total Bilirubin 0.3 mg/dL (0.15-1.2) 01/30/25 09:57 AST 32 U/L (0-32) 01/30/25 09:57 ALT 14 U/L (0-33) 01/30/25 09:57 Alkaline Phosphatase 105 U/L (35-105) 01/30/25 09:57 Troponin T Baseline 29 ng/L (0-10) H 01/30/25 09:57 Troponin T 60 Minute 26.45 ng/L (0-10) H 01/30/25 10:58 Delta Troponin T -2.55 ABS# (0-10) L 01/30/25 10:58 C-Reactive Protein 53.8 mg/L (0.0-4.9) H 01/30/25 09:57 NT-Pro-B Natriuret Pep 2020 pg/mL (0-450) H 01/30/25 09:57 Total Protein 5.5 g/dL (6.6-8.7) L 01/30/25 09:57 Albumin 2.9 g/dL (3.5-5.2) L 01/30/25 09:57 Globulin 2.6 g/dL (1.3-4.6) 01/30/25 09:57 Procalcitonin 0.18 ng/mL (0-0.5) 01/30/25 09:57 Influenza A (PCR) Negative (Negative) 01/30/25 10:05 Influenza Type B (PCR) Negative (Negative) 01/30/25 10:05 RSV (PCR) Negative (Negative) 01/30/25 10:05 SARS-CoV-2 (PCR) Negative (Negative) 01/30/25 10:05 All radiology interpretation(s) finalized by discharge Discharge Plan Discharge Patient Disposition: Admitted As Inpatient Clinical Impression: Pneumonia, Hypoxemia Condition: Stable Coding Level of Care Code ED Algorithm Developer for Arash Camara
--- NOTE | 2025-01-30 09:53 | ECG_ITS ---
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: : 1940 Requested By: Terrie Jean-Baptiste Order Number: [id number] Reading MD: EVELYN COVARRUBIAS Measurements Intervals [place] Rate: 110 P: 2 MO: 152 QRS: -27 QRSD: 132 T: 42 QT: 371 QTc: 503 Interpretive Statements SINUS TACHYCARDIA WITH OCCASIONAL SUPRAVENTRICULAR PREMATURE COMPLEXES POSSIBLE LEFT ATRIAL ENLARGEMENT [-0.1mV P-WAVE IN V1/V2] RIGHT BUNDLE BRANCH BLOCK [120+ ms QRS DURATION, UPRIGHT V1, 40+ ms S IN I/aVL/V4/V5/V6] POSSIBLE ANTERIOR MYOCARDIAL INFARCTION , PROBABLY OLD [30 ms Q WAVE IN V3/V4, OR R < 0.2 mV IN V4] Compared to ECG 01/27/2025 23:23:43 Left anterior fascicular block no longer present Myocardial infarct finding still present Electronically Signed On 01-30-2025 20:15:41 WOODWORKING MACHINE OPERATOR by EVELYN COVARRUBIAS [email or web address]
--- OUTSIDE RECORDS SUMMARY | 2025-01-30 09:54 | XMS_ITS | Encounter Summary ---
Author Organization [facility] Address [address] [facility] [place] [address] Care Team Providers Care Diesel Engine Erector Name Role Phone Eliseo Leigh MD Primary Care Provider [phone] Encounter Details Date Type Department Care Team (Latest Contact Info) Description 04/15/2004 Outpatient Historical [facility] [place] [address] 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
--- OUTSIDE RECORDS SUMMARY | 2025-01-30 09:54 | XMS_ITS | Encounter Summary ---
Author Organization [facility] Address [address] [place] [place] [address] Care Team Providers Care Print Color Matcher Name Role Phone Eliseo Leigh MD Primary Care Provider [phone] Encounter Details Date Type Department Care Team (Latest Contact Info) Description 07/24/2004 Outpatient Historical [facility] Dermatology- [facility] [place] [address] [place] [address] Mckay Evangelista MD NO ADDRESS ON FILE BENIGN ELIZABETH SKIN FACE NEC (Primary Dx); SEBORRHEIC KERATOSIS NOS Social History Tobacco Use Types Packs/Day Years Used Date Smoking Tobacco: Never Assessed Comments Unknown Sex and Gender Information Value Date Recorded Sex Assigned at Not on file Legal Sex Female 3:08 AM KITCHEN CHEF Gender Identity Not on file Sexual Orientation Not on file documented as of this encounter Plan of Treatment Not on file documented as of this encounter Visit Diagnoses Diagnosis Benign neoplasm of skin of other and unspecified parts of face- Primary Other seborrheic keratosis documented in this encounter Care Teams Print Color Matcher Relationship Specialty Start Date End Date Eliseo Leigh MD [address] [place] [address] PCP - General 04/15/04 11/30/21 documented as of this encounter
--- OUTSIDE RECORDS SUMMARY | 2025-01-30 09:54 | XMS_ITS | Encounter Summary ---
Author Organization [facility] Address [address] [place] [address] Care Team Providers Care Heel Coverer Machine Operator Name Role Phone Eliseo Leigh MD Primary Care Provider [phone] Reason for Referral * Radiology Services (Routine) - Closed Specialty Diagnoses / Procedures Referred By Contac t Referred To Contact Radiology Diagnoses Encounter for screening mammogram for malignant neoplasm of breast Procedures MAMMO SCRN BILAT 3D OLEG W OR WO CAD Eliseo Leigh MD [address] [facility] [address] [place] [address] Phone: tel: fax: [facility] [place] [address] [facility] [address] [place] [address] Phone: tel: fax: Referral ID Status Reason Start Date Expiration Date Visits Re quested Visits Authorized [id number] Closed 11/21/2017 12/22/2018 1 1 Encounter Details Date Type Department Care Team (Latest Contact Info) Description 11/21/2017 Ancillary Orders 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
--- OUTSIDE RECORDS SUMMARY | 2025-01-30 09:54 | XMS_ITS | Encounter Summary ---
Author Organization [facility] Address [address] [place] [address] Care Team Providers Care Ticket Dispenser Changer Name Role Phone Eliseo Leigh MD Primary Care Provider [phone] Encounter Details Date Type Department Care Team (Latest Contact Info) Description 08/06/2005 Outpatient Historical [facility] [address] [place] [address] Adam Jimenez MD [address] [place] [address] Mechanical Ptosis (Primary Dx) Social History Tobacco Use Types Packs/Day Years Used Date Smoking Tobacco: Never Assessed Comments Unknown Sex and Gender Information Value Date Recorded Sex Assigned at Not on file Legal Sex Female 3:08 AM CHICKEN CLEANER Gender Identity Not on file Sexual Orientation Not on file documented as of this encounter Plan of Treatment Not on file documented as of this encounter Visit Diagnoses Diagnosis Mechanical ptosis- Primary documented in this encounter Care Teams Ticket Dispenser Changer Relationship Specialty Start Date End Date Eliseo Leigh MD [address] [place] [phone] PCP - General 04/15/04 11/30/21 documented as of this encounter
--- OUTSIDE RECORDS SUMMARY | 2025-01-30 09:54 | XMS_ITS | Encounter Summary ---
Author Organization [facility] Address [address] [place] [address] Care Team Providers Care Maths Tutor Name Role Phone Eliseo Leigh MD Primary Care Provider [phone] Encounter Details Date Type Department Care Team (Latest Contact Info) Description 11/13/2004 Outpatient Historical [facility] [place] [address] [place] [address] Eliseo Leigh MD [address] [place] [address] ABDOMINAL PAIN UNSPEC SITE (Primary Dx); HYPOTHYROIDISM NOS; HYPERTENSION NOS; CAMPOS'S PALSY Social History Tobacco Use Types Packs/Day Years Used Date Smoking Tobacco: Never Assessed Comments Unknown Sex and Gender Information Value Date Recorded Sex Assigned at Not on file Legal Sex Female 3:08 AM INDUSTRIAL ROOF PLUMBER Gender Identity Not on file Sexual Orientation Not on file documented as of this encounter Plan of Treatment Not on file documented as of this encounter Visit Diagnoses Diagnosis Abdominal pain, unspecified site- Primary Unspecified hypothyroidism Unspecified essential hypertension Campos's palsy documented in this encounter Care Teams Maths Tutor Relationship Specialty Start Date End Date Eliseo Leigh MD [address] [place] [address] PCP - General 04/15/04 11/30/21 documented as of this encounter
--- OUTSIDE RECORDS SUMMARY | 2025-01-30 09:54 | XMS_ITS | Encounter Summary ---
Author Organization [facility] Address [address] [place]: Epic Prelude ADT [place] [address] Care Team Providers Care Vehicle Trimmer Name Role Phone Eliseo Leigh MD Primary Care Provider [phone] Encounter Details Date Type Department Care Team (Late st Contact Info) Description 10/17/2000 Outpatient Historical Tony Pollard MD NO ADDRESS ON FILE Social History Tobacco Use Types Packs/Day Years Used Date Smoking Tobacco: Never Assessed Comments Unknown Sex and Gender Information Value Date Recorded Sex Assigned at Not on file Legal Sex Female 3:08 AM JUDGE'S CLERK Gender Identity Not on file Sexual Orientation Not on file documented as of this encounter Plan of Treatment Not on file documented as of this encounter Visit Diagnoses Not on filedocumented in this encounter Care Teams Vehicle Trimmer Relationship Specialty Start Date End Date Eliseo Leigh MD [address] [facility] [address] [place] [phone] PCP - General 04/15/04 11/30/21 documented as of this encounter
--- OUTSIDE RECORDS SUMMARY | 2025-01-30 09:54 | XMS_ITS | Encounter Summary ---
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, Including Hip Social History Tobacco Use Types Packs/Day Years Used Date Smoking Tobacco: Never Assessed Comments No Sex and Gender Information Value Date Recorded Sex Assigned at Not on file Legal Sex Female 3:08 AM MANAGER PHOTOGRAPHY Gender Identity Not on file Sexual Orientation Not on file documented as of this encounter Plan of Treatment Not on file documented as of this encounter Visit Diagnoses Diagnosis 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
--- OUTSIDE RECORDS SUMMARY | 2025-01-30 09:54 | XMS_ITS | Encounter Summary ---
Author Organization [facility] Address [address] [place] [address] Care Team Providers Care Technologies Division Chair Name Role Phone Eliseo Leigh MD Primary Care Provider [phone] Reason for Referral * Outpatient Services (Routine) - Closed Specialty Diagnoses / Procedures Referred By Michael mendes Referred To Contact Diagnoses Visit for screening mammogram Procedures MAMMO DIGITAL SCREEN BILAT Eliseo Leigh MD [address] [address] Phone: tel: fax: Referral ID Status Reason Start Date Expiration Date Visits Re quested Visits Authorized [id number] Closed 09/19/2015 10/19/2016 1 1 Encounter Details Date Type Department Care Team (Latest Contact Info) Description 09/19/2015 Ancillary Orders [facility] Pre-Registration [place] CALL TO MAKE APPOINTMENT ONLY [address] [place] [address] Eliseo Leigh MD [address] [address] Visit for screening mammogram (Primary Dx) Social History Tobacco Use Types Packs/Day Years Used Date Smoking Tobacco: Never Smokeless Tobacco: Never Alcohol Use Standard Drinks/Week Comments No 0 (1 standard drink = 0.6 oz pur e alcohol) Comments No Sex and Gender Information Value Date Recorded Sex Assigned at Not on file Legal Sex Female 3:08 AM TITLE ASSISTANT Gender Identity Not on file Sexual [...] documented as of this encounter Care Teams Technologies Division Chair Relationship Specialty Start Date End Date Eliseo Leigh MD [address] [phone] PCP - General 04/15/04 11/30/21 documented as of this encounter
--- OUTSIDE RECORDS SUMMARY | 2025-01-30 09:54 | XMS_ITS | Encounter Summary ---
Author Organization [facility] Address [address] [place] [address] Care Team Providers Care Clinical Services Specialist Name Role Phone Eliseo Leigh MD Primary Care Provider [phone] Reason for Referral * Outpatient Services (Routine) - Closed Specialty Diagnoses / Procedures Referred By Michael t Referred To Contact Diagnoses Other screening mammogram Procedures MAMMO DIGITAL SCREEN BILAT Eliseo Leigh MD [address] [address] Phone: tel: fax: Referral ID Status Reason Start Date Expiration Date Visits Re quested Visits Authorized [id number] Closed 08/07/2013 09/07/2014 1 1 Encounter Details Date Type Department Care Team (Latest Contact Info) Description 08/07/2013 Ancillary Orders [facility] Pre-Registration [place] CALL TO MAKE APPOINTMENT ONLY [address] [place] [address] Eliseo Leigh MD [address] [address] Other screening mammogram (Primary Dx) Social History Tobacco Use Types Packs/Day Years Used Date Smoking Tobacco: Never Smokeless Tobacco: Never Alcohol Use Standard Drinks/Week Comments No 0 (1 standard drink = 0.6 oz pur e alcohol) Comments No Sex and Gender Information Value Date Recorded Sex Assigned at Not on file 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
--- OUTSIDE RECORDS SUMMARY | 2025-01-30 09:54 | XMS_ITS | Encounter Summary ---
Author Organization [facility] Address [address] [place] [address] Care Team Providers Care Physical Meteorologist Name Role Phone Eliseo Leigh MD Primary Care Provider [phone] Encounter Details Date Type Department Care Team (Late st Contact Info) Description 01/29/2025 External Device Data [place] ABSTRACTION Provider, Abstract NO ADDRESS ON FILE Social History Tobacco [...] on file Legal Sex Female 6:28 AM TOOL GRINDER OPERATOR SURFACE Gender Identity Not on file Sexual Orientation Not on file documented as of this encounter Plan of Treatment Upcoming Encounters Date Type Department Care Team (Late st Contact Info) Description 04/16/2025 8:00 AM CDT Procedure visit [facility] [address] [facility] [address] [place] [phone] Ritesh Chambers MD [address] [place] [phone] 06/27/2025 11:30 AM CDT Appointment [facility] [address] [place] [address] Jarocho Good MD [address] [place] [phone] 06/27/2025 1:30 PM CDT Office Visit [facility] [address] [place] [phone] Jarocho Good MD [address] [place] [address] 01/13/2026 10:40 AM TOOL GRINDER OPERATOR SURFACE Office Visit [facility] [address] [place] [phone] Jose Bob CRNP [address] [place] [phone] Ritesh Chambers MD [address] [place] [phone] Nedra Zapata NP [address], [address] [place] [phone] documented as of this encounter Visit Diagnoses Not on filedocumented in this encounter Care Teams Physical Meteorologist Relationship Specialty Start Date End Date Eliseo Leigh MD [address] [place] [phone] PCP - General Family Practice 01/30/24 documented as of this encounter
--- OUTSIDE RECORDS SUMMARY | 2025-01-30 09:54 | XMS_ITS | Encounter Summary ---
Author Organization [facility] Address [address] [place] [address] Care Team Providers Care Stockroom Inventory Clerk Name Role Phone Eliseo Leigh MD Primary Care Provider [phone] Encounter Details Date Type Department Care Team (Latest Contact Info) Description 07/25/2007 Outpatient [facility] [place] [address] [address] Mazin Newton MD NO ADDRESS ON FILE Spinal Stenosis of Lumbar Region; Congenital Spondylolisthesis; Unspecified Arthropathy, Site Unspecified; Unspecified Essential Hypertension Social History Tobacco Use Types Packs/Day Years Used Date Smoking Tobacco: Never Assessed Comments No Sex and Gender Information Value Date Recorded Sex Assigned at Not on file Legal Sex Female 3:08 AM BAND BOOKER Gender Identity Not on file Sexual Orientation [...] hypertension documented in this encounter Care Teams Stockroom Inventory Clerk Relationship Specialty Start Date End Date Eliseo Leigh MD [address] [address] PCP - General 04/15/04 11/30/21 documented as of this encounter
--- OUTSIDE RECORDS SUMMARY | 2025-01-30 09:54 | XMS_ITS | Encounter Summary ---
Author Organization [facility] Address [address] [place] [address] Care Team Providers Care Clerk Guide Name Role Phone Eliseo Leigh MD Primary Care Provider Encounter Details Date Type Department Care Team (Late st Contact Info) Description 01/14/2025 Results Follow-Up [facility] [address] [facility] [address] [place] [address] Ritesh Chambers MD [address] [facility] [address] [place] [address] PACER PROGRAM EVAL DUAL LEAD Social [...] on file Legal Sex Female 6:28 AM MANAGEMENT SCIENTIST Gender Identity Not on file Sexual Orientation Not on file documented as of this encounter Miscellaneous Notes * Result Encounter Note - Ritesh Chambers MD - 01/14/2025 1:37 PM MANAGEMENT SCIENTIST My interpretation is in agreement with the above documentation. GEMENT SCIENTIST documented in this encounter Plan of Treatment Upcoming Encounters Date Type Department Care Team (Late st Contact Info) Description 04/16/2025 8:00 AM CDT Procedure visit [facility] [address] [place] [address] Ritesh Chambers MD [address] [place] [phone] 06/27/2025 11:30 AM CDT Appointment [facility] [address] [place] [phone] Jarocho Good MD [address] [place] [phone] 06/27/2025 1:30 PM CDT Office Visit [facility] [address] [place] [address] Jarocho Good MD [address] [place] [address] 01/13/2026 10:40 AM MANAGEMENT SCIENTIST Office Visit [facility] [address] [place] [address] Jose Bob CRNP [address], [address] [place] [phone] Ritesh Chambers MD [address] [facility] [address] [place] [address] Nedra Zapata NP [address] [facility] [address] [place] [address] documented as of this encounter Visit Diagnoses Not on filedocumented in this encounter Care Teams Clerk Guide Relationship Specialty Start Date End Date Eliseo Leigh MD [address] [facility] [address] [place] [address] PCP - General Family Practice 01/30/24 documented as of this encounter
--- OUTSIDE RECORDS SUMMARY | 2025-01-30 09:54 | XMS_ITS | Encounter Summary ---
Author Organization [facility] Address [address] [place] [address] Care Team Providers Care Service Restorer Emergency Name Role Phone Eliseo Leigh MD Primary Care Provider [phone] Encounter Details Date Type Department Care Team (Latest Contact Info) Description 11/26/2003 [facility] [place] [address] Eliseo Leigh MD [address] [place] [address] HYPOTHYROIDISM NOS (Primary Dx); ANEMIA IN PREG-UNSPEC; OSTEOARTHROS NOS-UNSPEC; Vaccine for influenza Social History Tobacco Use Types Packs/Day Years Used Date Smoking Tobacco: Never Assessed Comments Unknown Sex and Gender Information Value Date Recorded Sex Assigned at Not on file Legal Sex Female 3:08 AM FIRE HOSE CURER Gender Identity Not on file Sexual Orientation [...] influenza documented in this encounter Care Teams Service Restorer Emergency Relationship Specialty Start Date End Date Eliseo Leigh MD [address] [phone] PCP - General 04/15/04 11/30/21 documented as of this encounter
--- OUTSIDE RECORDS SUMMARY | 2025-01-30 09:54 | XMS_ITS | Encounter Summary ---
Author Organization [facility] Address [address] [place] [address] Care Team Providers Care Feed Crusher Operator Name Role Phone Eliseo Leigh MD Primary Care Provider [phone] Encounter Details Date Type Department Care Team (Latest Contact Info) Description 05/06/2005 Outpatient Historical [facility] [place] [address] [place] [address] Eliseo Leigh MD [address] [phone] Other Screening Mammogram (Primary Dx) Social History Tobacco Use Types Packs/Day Years Used Date Smoking Tobacco: Never Assessed Comments Unknown Sex and Gender Information Value Date Recorded Sex Assigned at Not on file Legal Sex Female 3:08 AM SIGN INSTALLER Gender Identity Not on file Sexual Orientation Not on file documented as of this encounter Plan of Treatment Not on file documented as of this encounter Visit Diagnoses Diagnosis Other screening mammogram- Primary documented in this encounter Care Teams Feed Crusher Operator Relationship Specialty Start Date End Date Eliseo Leigh MD [address] [phone] PCP - General 04/15/04 11/30/21 documented as of this encounter
--- OUTSIDE RECORDS SUMMARY | 2025-01-30 09:54 | XMS_ITS | Encounter Summary ---
Author Organization [facility] Address [address] [place] [address] Care Team Providers Care Tail Dogger Name Role Phone Eliseo Leigh MD Primary Care Provider [phone] Reason for Referral * Outpatient Services (Routine) - Closed Specialty Diagnoses / Procedures Referred By Contmegha t Referred To Contact Diagnoses Other screening mammogram Procedures MAMMO DIGITAL SCREEN BILAT Eliseo Leigh MD [address] [address] Phone: tel: fax: [facility] Pre-Registration [place] CALL TO MAKE APPOINTMENT ONLY [address] [place] [address] Phone: tel: fax: Referral ID Status Reason Start Date Expiration Date Visits Re quested Visits Authorized [id number] Closed 07/02/2011 07/01/2012 1 1 Encounter Details Date Type Department Care Team (Latest Contact Info) Description 07/02/2011 Ancillary Orders [facility] Pre-Registration [place] CALL TO MAKE APPOINTMENT ONLY [address] [place] [address] Eilseo Leigh MD [address] [place] [address] Other screening mammogram Social History Tobacco Use Types Packs/Day Years Used Date Smoking Tobacco: Never Smokeless Tobacco: Never Alcohol Use Standard Drinks/Week Comments No 0 (1 standard drink = 0.6 oz pur e alcohol) Comments No Sex and Gender Information Value Date Recorded Sex Assigned at Not on file Legal Sex Female 3:08 AM INDUSTRIAL STAFF NURSE Gender Identity Not on file Sexual Orientation [...] mammogram documented in this encounter Care Teams Tail Dogger Relationship Specialty Start Date End Date Eliseo Leigh MD [address] [facility] [address] [place] [address] PCP - General 04/15/04 11/30/21 documented as of this encounter
--- OUTSIDE RECORDS SUMMARY | 2025-01-30 09:54 | XMS_ITS | Encounter Summary ---
Author Organization [facility] Address [address] [place] [address] Care Team Providers Care Indigo Mixer Name Role Phone Eliseo Leigh MD Primary Care Provider [phone] Reason for Referral * Eval and Treat (Routine) - Closed Specialty Diagnoses / Procedures Referred By Michael mendes Referred To Contact Nephrology Diagnoses Elevated serum creatinine Procedures SD OFFICE/OUTPATIENT ESTABLISHED MOD MDM 30 MIN SD OFFICE/OUTPATIENT NEW MODERATE MDM 45 MINUTES Virgil Lees, NUTRITION THERAPIST [address] [place] [address] Phone: tel: fax: [facility] [address] [place] [address] Phone: tel: fax: Referral ID Status Reason Start Date Expiration Date Visits Re quested Visits Authorized [id number] Closed 12/23/2024 12/24/2025 1 1 E REPAIR MECHANIC Encounter Details Date Type Department Care Team (Late st Contact Info) Description 12/23/2024 Results Follow-Up [facility] [address] [place] [address] Virgil Lees, NUTRITION THERAPIST [address] [place] [address] CBC WITH DIFFERENTIAL, COMPREHENSIVE METABOLIC PANEL, TICK-BORNE [...] on file Legal Sex Female 6:28 AM BRAKE REPAIR MECHANIC Gender Identity Not on file Sexual Orientation Not on file documented as of this encounter Miscellaneous Notes * Result Encounter Note - Virgil Lees NP - 12/26/2024 7:22 AM CST Tick panel was negative. Please schedule a follow-up for reevaluation. If symptoms worsen or if you develop new symptoms please follow-up sooner or go to urgent care/ER. E REPAIR MECHANIC * Result Encounter Note - Virgil Lees [...] is unremarkable. Tick panel is still pending. E REPAIR MECHANIC documented in this encounter Plan of Treatment Upcoming Encounters Date Type Department Care Team (Late st Contact Info) Description 04/16/2025 8:00 AM CDT Procedure visit [facility] [address] [place] [phone] Ritesh Chambers MD [address] [place] [phone] 06/27/2025 11:30 AM CDT Appointment [facility] [address] [place] [address] Jarocho Good MD [address] [place] [phone] 06/27/2025 1:30 PM CDT Office Visit [facility] [address] [place] [phone] Jarocho Good MD [address] [place] [phone] 01/13/2026 10:40 AM BRAKE REPAIR MECHANIC Office Visit [facility] [address] [place] [phone] Jose Bob CRNP [address] [place] [phone] Ritesh Chambers MD [address] [place] [phone] Nedra Zapata NP [address], [address] [place] [phone] Scheduled Referrals Name Type Priority Associated Diagnoses Order Schedule AMB REFERRAL TO NEPHROLOGY Outpatient Referral Routine Elevated serum creatinine Ordered: 12/23/2024 documented as of this encounter Visit Diagnoses Diagnosis Elevated serum creatinine- Primary Other nonspecific findings on examination of blood documented in this encounter Care Teams Indigo Mixer Relationship Specialty Start Date End Date Eliseo Leigh MD [address] [phone] PCP - General Family Practice 01/30/24 documented as of this encounter
--- OUTSIDE RECORDS SUMMARY | 2025-01-30 09:54 | XMS_ITS | Encounter Summary ---
Author Organization [facility] Address [address] [facility] [place] [address] Care Team Providers Care Analytics Senior Manager Name Role Phone Eliseo Leigh MD Primary Care Provider [phone] Encounter Details Date Type Department Care Team (Late st Contact Info) Description 10/04/2000 Outpatient Historical [facility] Yimi Buenrostro MD [address] [place] [address] Hyperpotassemia (Primary Dx); Unspecified hypothyroidism Social History Tobacco Use Types Packs/Day Years Used Date Smoking Tobacco: Never Assessed Comments Unknown Sex and Gender Information Value Date Recorded Sex Assigned at Not on file Legal Sex Female 3:08 AM BANKING MANAGEMENT CONSULTING MANAGER Gender Identity Not on file Sexual Orientation Not on file documented as of this encounter Plan of Treatment Not on file documented as of this encounter Visit Diagnoses Diagnosis Hyperpotassemia- Primary Unspecified hypothyroidism documented in this encounter Care Teams Analytics Senior Manager Relationship Specialty Start Date End Date Eliseo Leigh MD [address] [address] [place] [address] PCP - General 04/15/04 11/30/21 documented as of this encounter
--- OUTSIDE RECORDS SUMMARY | 2025-01-30 09:54 | XMS_ITS | Encounter Summary ---
Author Organization [facility] Address [address] [place] [address] Care Team Providers Care Hull Molder Name Role Phone Eliseo Leigh MD Primary Care Provider [phone] Reason for Visit * Reason Comments Med Refill Encounter Details Date Type Department Care Team (Late st Contact Info) Description 01/25/2025 Refill [facility] [place] [place] [address] Eliseo Leigh MD [address] [place] [address] Social History Tobacco Use Types [...] on file Legal Sex Female 6:28 AM APPLIED BEHAVIOR SCIENCE SPECIALIST Gender Identity Not on file Sexual Orientation Not on file documented as of this encounter Plan of Treatment Upcoming Encounters Date Type Department Care Team (Late st Contact Info) Description 04/16/2025 8:00 AM CDT Procedure visit [facility] [address] [place] [phone] Ritesh Chambers MD [address] [place] [phone] 06/27/2025 11:30 AM CDT Appointment [facility] [address] [place] [address] Jarocho Good MD [address] [place] [phone] 06/27/2025 1:30 PM CDT Office Visit [facility] [address] [place] [phone] Jarocho Good MD [address] [place] [phone] 01/13/2026 10:40 AM APPLIED BEHAVIOR SCIENCE SPECIALIST Office Visit [facility] [address] [place] [phone] Jose Bob CRNP [address], [address] [place] [phone] Ritesh Chambers MD [address] [place] [phone] Nedra Zapata NP [address], [address] [place] [phone] documented as of this encounter Visit Diagnoses Not on filedocumented in this encounter Care Teams Hull Molder Relationship Specialty Start Date End Date Eliseo Leigh MD [address] [phone] PCP - General Family Practice 01/30/24 documented as of this encounter
--- OUTSIDE RECORDS SUMMARY | 2025-01-30 09:54 | XMS_ITS | Encounter Summary ---
Author Organization [facility] Address [address] [place] [address] Care Team Providers Care Leasing Coordinator Name Role Phone Eliseo Leigh MD Primary Care Provider [phone] Encounter Details Date Type Department Care Team (Late st Contact Info) Description 05/01/2009 Ancillary Orders [facility] [place] [place] [address] Eliseo Leigh MD [address] [place] [address] Other Screening Mammogram Social History Tobacco Use Types Packs/Day Years Used Date Smoking Tobacco: Never Alcohol Use Standard Drinks/Week Comments No 0 (1 standard drink = 0.6 oz pur e alcohol) Comments No Sex and Gender Information Value Date Recorded Sex Assigned at Not on file Legal Sex Female 3:08 AM HUMAN RESOURCES EXECUTIVE ASSISTANT Gender Identity Not on file Sexual [...] mammogram documented in this encounter Care Teams Leasing Coordinator Relationship Specialty Start Date End Date Eliseo Leigh MD [address] [phone] PCP - General 04/15/04 11/30/21 documented as of this encounter
--- OUTSIDE RECORDS SUMMARY | 2025-01-30 09:54 | XMS_ITS | Encounter Summary ---
Author Organization [facility] Address [address] [place]: Epic Prelude ADT RAFAEL LOVETT [address] Care Team Providers Care Support Staff Name Role Phone Eliseo Leigh MD Primary Care Provider Encounter Details Date Type Department Care Team (Late st Contact Info) Description 02/23/2001 Outpatient Historical Dennys Hudson MD [address] [place] [phone] Social History Tobacco Use Types Packs/Day Years Used Date Smoking Tobacco: Never Assessed Comments Unknown Sex and Gender Information Value Date Recorded Sex Assigned at Not on file Legal Sex Female 3:08 AM PRINCIPAL PROGRAMMER Gender Identity Not on file Sexual Orientation Not on file documented as of this encounter Plan of Treatment Not on file documented as of this encounter Visit Diagnoses Not on filedocumented in this encounter Care Teams Support Staff Relationship Specialty Start Date End Date Eliseo Leigh MD [address] [place] [phone] PCP - General 04/15/04 11/30/21 documented as of this encounter
--- OUTSIDE RECORDS SUMMARY | 2025-01-30 09:54 | XMS_ITS | Encounter Summary ---
Author Organization [facility] Address [address] [place] [facility] [place] [address] Care Team Providers Care Coordinator Volunteer Services Name Role Phone Eliseo Leigh MD Primary Care Provider [phone] Encounter Details Date Type Department Care Team (Latest Contact Info) Description 06/06/2001 Outpatient Historical [facility] Dermatology- [facility] K[address] [place] [phone] Mckay Evangelista MD NO ADDRESS ON FILE SEBORRHEIC KERATOSIS NOS (Primary Dx) Social History Tobacco Use Types Packs/Day Years Used Date Smoking Tobacco: Never Assessed Comments Unknown Sex and Gender Information Value Date Recorded Sex Assigned at Not on file Legal Sex Female 3:08 AM SEA SHELL GATHERER Gender Identity Not on file Sexual Orientation Not on file documented as of this encounter Plan of Treatment Not on file documented as of this encounter Visit Diagnoses Diagnosis Other seborrheic keratosis- Primary documented in this encounter Care Teams Coordinator Volunteer Services Relationship Specialty Start Date End Date Eliseo Leigh MD [address] [place] [phone] PCP - General 04/15/04 11/30/21 documented as of this encounter
--- OUTSIDE RECORDS SUMMARY | 2025-01-30 09:54 | XMS_ITS | Encounter Summary ---
Author Organization [facility] Address [address] [place] [address] Care Team Providers Care Stem Setter Name Role Phone Eliseo Leigh MD Primary Care Provider [phone] Encounter Details Date Type Department Care Team (Late st Contact Info) Description 08/08/2000 Outpatient Historical [facility] Yimi Buenrostro MD [address] [place] [address] Routine medical exam (Primary Dx); Unspecified essential hypertension Social History Tobacco Use Types Packs/Day Years Used Date Smoking Tobacco: Never Assessed Comments Unknown Sex and Gender Information Value Date Recorded Sex Assigned at Not on file Legal Sex Female 3:08 AM CHAPTER RELATIONS ADMINISTRATOR Gender Identity Not on file Sexual Orientation Not on file documented as of this encounter Plan of Treatment Not on file documented as of this encounter Visit Diagnoses Diagnosis Routine medical exam- Primary Routine general medical examination at a health care facility Unspecified essential hypertension documented in this encounter Care Teams Stem Setter Relationship Specialty Start Date End Date Eliseo Leigh MD [address] [phone] PCP - General 04/15/04 11/30/21 documented as of this encounter
--- OUTSIDE RECORDS SUMMARY | 2025-01-30 09:54 | XMS_ITS | Encounter Summary ---
Author Organization [facility] Address [address] [place] [address] Care Team Providers Care Tractor Sweeper Driver Name Role Phone Eliseo Leigh MD Primary Care Provider [phone] Encounter Details Date Type Department Care Team (Late st Contact Info) Description 08/06/2005 Outpatient Historical [facility] [address] [place] [address] Social History Tobacco Use Types Packs/Day Years Used Date Smoking Tobacco: Never Assessed Comments Unknown Sex and Gender Information Value Date Recorded Sex Assigned at Not on file Legal Sex Female 3:08 AM AUTO DISMANTLER Gender Identity Not on file Sexual Orientation Not on file documented as of this encounter Plan of Treatment Not on file documented as of this encounter Visit Diagnoses Not on filedocumented in this encounter Care Teams Tractor Sweeper Driver Relationship Specialty Start Date End Date Eliseo Leigh MD [address] [phone] PCP - General 04/15/04 11/30/21 documented as of this encounter
--- OUTSIDE RECORDS SUMMARY | 2025-01-30 09:54 | XMS_ITS | Encounter Summary ---
Author Organization [facility] Address [address] [place] [address] Care Team Providers Care Treating And Pumping Supervisor Name Role Phone Eliseo Leigh MD Primary Care Provider [phone] Encounter Details Date Type Department Care Team (Late st Contact Info) Description 01/08/2002 Outpatient Historical [facility] Services [address] [place] [address] Russell Peres MD NO ADDRESS ON FILE Social History Tobacco Use Types Packs/Day Years Used Date Smoking Tobacco: Never Assessed Comments Unknown Sex and Gender Information Value Date Recorded Sex Assigned at Not on file Legal Sex Female 3:08 AM CARD CUTTER HELPER Gender Identity Not on file Sexual Orientation Not on file documented as of this encounter Plan of Treatment Not on file documented as of this encounter Visit Diagnoses Not on filedocumented in this encounter Care Teams Treating And Pumping Supervisor Relationship Specialty Start Date End Date Eliseo Leigh MD [address] [phone] PCP - General 04/15/04 11/30/21 documented as of this encounter
--- OUTSIDE RECORDS SUMMARY | 2025-01-30 09:54 | XMS_ITS | Encounter Summary ---
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
--- OUTSIDE RECORDS SUMMARY | 2025-01-30 09:54 | XMS_ITS | Encounter Summary ---
Author Organization [facility] Address [address] [place] [address] Care Team Providers Care Wood Boatbuilder Apprentice Name Role Phone Eliseo Leigh MD Primary Care Provider [phone] Reason for Referral * Outpatient Services (Routine) - Closed Specialty Diagnoses / Procedures Referred By Contac t Referred To Contact Diagnoses Encounter for screening mammogram for malignant neoplasm of breast Procedures MAMMO SCREEN BILAT W OR WO CAD Eliseo Leigh MD [address] [address] Phone: tel: fax: Referral ID Status Reason Start Date Expiration Date Visits Re quested Visits Authorized [id number] Closed 10/26/2016 11/26/2017 1 1 Encounter Details Date Type Department Care Team (Latest Contact Info) Description 10/26/2016 Ancillary Orders [facility] Pre-Registration [place] CALL TO MAKE APPOINTMENT ONLY [address] [place] [address] Eliseo Leigh MD [address] [address] Encounter for screening mammogram for malignant neoplasm of breast Social History Tobacco Use Types Packs/Day Years Used Date Smoking Tobacco: Never Smokeless Tobacco: Never Alcohol Use Standard Drinks/Week Comments No 0 (1 standard drink = 0.6 oz pur e alcohol) Comments No Sex and Gender Information Value Date Recorded Sex Assigned at Not on file 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
--- OUTSIDE RECORDS SUMMARY | 2025-01-30 09:54 | XMS_ITS | Encounter Summary ---
Author Organization [facility] Address [address] [place] [address] Care Team Providers Care House Servant Name Role Phone Eliseo Leigh MD Primary Care Provider [phone] Encounter Details Date Type Department Care Team (Late st Contact Info) Description 11/18/2008 Ancillary Orders [facility] [address] [place] [address] Eliseo Leigh MD [address] [place] [address] Undiagnosed Cardiac Murmurs; Chest Pain Social History Tobacco Use Types Packs/Day Years Used Date Smoking Tobacco: Never Alcohol Use Standard Drinks/Week Comments No 0 (1 standard drink = 0.6 oz pur e alcohol) Comments No Sex and Gender Information Value Date Recorded Sex Assigned at Not on file 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 Gender Identity Not on file Sexual [...] INTERFACE SYSTEM - 11/18/2008 3:41 PM CDT [facility] Cardiology [address] [place] [address] Transthoracic Echocardiogram Patient: Jacklyn Schultz Study ID: ECHO PRE TEST Gender: F : 1940 Age: 67 years Location: Room: Height: 66 in ( 168 cm ) Study date: November 18, 2008 Patient status: Weight: 168.65 lb ( 76.66 kg ) Study time: 10: 4 BSA: 1.86 m^2 Referring MD: Lu Gomes [id number] R Performing MD: Madhuri Chambers MD Process Artist: Mayda Stephenson Ordering: Eliseo Leigh Referring MD: [...] RV systolic pressure 37 mmHg <30 mmHg [facility] Echo Lab is accredited with the Intersocietal Commission for the Accreditation of Echocardiography Laboratories (ICAEL) Prepared and Electronically Authenticated Madhuri Chambers MD Confirmed November 18, 2008 15:41:01 Procedure Note Ebony Chambers MD - 2008 [facility] - Cardiology [address] [place] [address] Transthoracic Echocardiogram Patient: Jacklyn Schultz Study ID: ECHO PRE TEST Gender: F : 1940 Age: 67 years Location: Room: Height: 66 in ( 168 cm ) Study date: November 18, 2008 Patient status: Weight: 168.65 lb ( 76.66 kg ) Study time: 10: 4 BSA: 1.86 m^2 Referring MD: Lu Gomes [id number] Kaleb Mcgrath MD: Madhuri Chambers MD Process Artist: Mayda Stephenson Ordering: Eliseo Robles MD: Eliseo [...] RV systolic pressure 37 mmHg <30 mmHg [facility] is accredited with the Intersocietal Commission forthe Accreditation of Echocardiography Laboratories (ICAEL) Prepared and Electronically Authenticated Madhuri Chambers MD Confirmed November 18, 2008 15:41:01 us Eliseo Leigh MD ORDERABLES Edited INTERFACE SYSTEM Refer to clinic/hospital department documented in this encounter Visit Diagnoses Diagnosis Undiagnosed cardiac murmurs Chest pain Chest pain, unspecified documented in this encounter Care Teams House Servant Relationship Specialty Start Date End Date Eliseo Leigh MD [address] [phone] PCP - General 04/15/04 11/30/21 documented as of this encounter
--- OUTSIDE RECORDS SUMMARY | 2025-01-30 09:54 | XMS_ITS | Encounter Summary ---
Author Organization [facility] Address [address] [place] [address] Care Team Providers Care Cupola Operator Insulation Name Role Phone Eliseo Leigh MD Primary Care Provider [phone] Reason for Referral * Outpatient Services (Routine) - Closed Specialty Diagnoses / Procedures Referred By Contmegha t Referred To Contact Diagnoses Other screening mammogram Procedures MAMMO DIGITAL SCREEN BILAT Eliseo Leigh MD [address] [address] Phone: tel: fax: [facility] Pre-Registration [place] CALL TO MAKE APPOINTMENT ONLY [address] [place] [address] Phone: tel: fax: Referral ID Status Reason Start Date Expiration Date Visits Re quested Visits Authorized [id number] Closed 06/06/2014 07/07/2015 1 1 Encounter Details Date Type Department Care Team (Latest Contact Info) Description 06/06/2014 Ancillary Orders [facility] Pre-Registration [place] CALL TO MAKE APPOINTMENT ONLY [address] [place] [address] Eliseo Leigh MD [address] [place] [address] Other screening mammogram (Primary Dx) Social History Tobacco Use Types Packs/Day Years Used Date Smoking Tobacco: Never Smokeless Tobacco: Never Alcohol Use Standard Drinks/Week Comments No 0 (1 standard drink = 0.6 oz pur e alcohol) Comments No Sex and Gender Information Value Date Recorded Sex Assigned at Not on file 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
--- OUTSIDE RECORDS SUMMARY | 2025-01-30 09:54 | XMS_ITS | Encounter Summary ---
Author Organization 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
--- OUTSIDE RECORDS SUMMARY | 2025-01-30 09:54 | XMS_ITS | Encounter Summary ---
Author Organization [facility] Address [address] [place] [address] Care Team Providers Care Volunteer Recruiter Name Role Phone Eliseo Leigh MD Primary Care Provider [phone] Reason for Referral * Outpatient Services (Routine) - Closed Specialty Diagnoses / Procedures Referred By Contmegha t Referred To Contact Diagnoses Other screening mammogram Procedures MAMMO DIGITAL SCREEN BILAT Eliseo Leigh MD [address] [address] Phone: tel: fax: [facility] Pre-Registration [place] CALL TO MAKE APPOINTMENT ONLY [address] [place] [address] Phone: tel: fax: Referral ID Status Reason Start Date Expiration Date Visits Re quested Visits Authorized [id number] Closed 07/28/2012 08/28/2013 1 1 Encounter Details Date Type Department Care Team (Latest Contact Info) Description 07/28/2012 Ancillary Orders [facility] Pre-Registration [facility] CALL TO MAKE APPOINTMENT ONLY [address] [place] [address] Eliseo Leigh MD [address] [place] [address] Other screening mammogram (Primary Dx) Social History Tobacco Use Types Packs/Day Years Used Date Smoking Tobacco: Never Smokeless Tobacco: Never Alcohol Use Standard Drinks/Week Comments No 0 (1 standard drink = 0.6 oz pur e alcohol) Comments No Sex and Gender Information Value Date Recorded Sex Assigned at Not on file 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
--- OUTSIDE RECORDS SUMMARY | 2025-01-30 09:54 | XMS_ITS | Encounter Summary ---
Author Organization [facility] Address [address] [place] [address] Care Team Providers Care Roofer Metal Name Role Phone Eliseo Leigh MD Primary Care Provider Encounter Details Date Type Department Care Team (Latest Contact Info) Description 12/02/2004 Outpatient Historical [facility] [place] [place] [address] Eliseo Leigh MD [address] [place] [address] Vaccine for influenza (Primary Dx) Social History Tobacco Use Types Packs/Day Years Used Date Smoking Tobacco: Never Assessed Comments Unknown Sex and Gender Information Value Date Recorded Sex Assigned at Not on file 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
--- OUTSIDE RECORDS SUMMARY | 2025-01-30 09:54 | XMS_ITS | Encounter Summary ---
Author Organization [facility] Address [address] [facility] [address] Care Team Providers Care Sales Product Specialist Name Role Phone Eliseo Leigh MD Primary Care Provider [phone] Encounter Details Date Type Department Care Team (Latest Contact Info) Description 11/27/2003 Outpatient Historical [facility] Cardiology Ancillary Services[facility] [address] [place] [address] Taran Porter MD NO ADDRESS ON FILE Mitral valve disorder (Primary Dx) Social History Tobacco Use Types Packs/Day Years Used Date Smoking Tobacco: Never Assessed Comments Unknown Sex and Gender Information Value Date Recorded Sex Assigned at Not on file 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
--- OUTSIDE RECORDS SUMMARY | 2025-01-30 09:54 | XMS_ITS | Encounter Summary ---
Author Organization [facility] Address [address] [facility] [address] Care Team Providers Care Cabin Service Agent Name Role Phone Eliseo Leigh MD Primary Care Provider [phone] Encounter Details Date Type Department Care Team (Latest Contact Info) Description 05/06/2005 Outpatient Historical [facility] [address] 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
--- OUTSIDE RECORDS SUMMARY | 2025-01-30 09:54 | XMS_ITS | Encounter Summary ---
Author Organization [facility] Address [address] [facility] [place] [address] Care Team Providers Care Front Office Java Developer Name Role Phone Eliseo Leigh MD Primary Care Provider [phone] Encounter Details Date Type Department Care Team (Late st Contact Info) Description 05/08/2007 Outpatient Historical [facility] [address] [facility] [place] [address] Social History Tobacco Use Types Packs/Day Years Used Date Smoking Tobacco: Never Assessed Comments No Sex and Gender Information Value Date Recorded Sex Assigned at Not on file Legal Sex Female 3:08 AM ORDER PULLER Gender Identity Not on file Sexual Orientation Not on file documented as of this encounter Plan of Treatment Not on file documented as of this encounter Visit Diagnoses Not on filedocumented in this encounter Care Teams Front Office Java Developer Relationship Specialty Start Date End Date Eliseo Leigh MD [address] [place] [address] PCP - General 04/15/04 11/30/21 documented as of this encounter
--- OUTSIDE RECORDS SUMMARY | 2025-01-30 09:54 | XMS_ITS | Encounter Summary ---
Author Organization [facility] Address [address] [place] [address] Care Team Providers Care Acid Remover Name Role Phone Eliseo Leigh MD Primary Care Provider Encounter Details Date Type Department Care Team (Latest Contact Info) Description 02/11/2004 Outpatient Historical [facility] [place] [place] [address] Eliseo Leigh MD [address] [place] [address] HYPERTENSION NOS (Primary Dx) Social History Tobacco Use Types Packs/Day Years Used Date Smoking Tobacco: Never Assessed Comments Unknown Sex and Gender Information Value Date Recorded Sex Assigned at Not on file Legal Sex Female 3:08 AM MIS DIRECTOR Gender Identity Not on file Sexual Orientation Not on file documented as of this encounter Plan of Treatment Not on file documented as of this encounter Visit Diagnoses Diagnosis Unspecified essential hypertension- Primary documented in this encounter Care Teams Acid Remover Relationship Specialty Start Date End Date Eliseo Leigh MD [address] [place] [address] PCP - General 04/15/04 11/30/21 documented as of this encounter
--- OUTSIDE RECORDS SUMMARY | 2025-01-30 09:54 | XMS_ITS | Encounter Summary ---
Author Organization [facility] Address [address] [place] [address] Care Team Providers Care Assembler Liquid Center Name Role Phone Eliseo Leigh MD Primary Care Provider [phone] Encounter Details Date Type Department Care Team (Late st Contact Info) Description 05/22/2007 Outpatient Historical [facility] Imaging Services [address] [place] [address] Eliseo Leigh MD [address] [phone] Lumbago Social History Tobacco Use Types Packs/Day Years Used Date Smoking Tobacco: Never Assessed Comments No Sex and Gender Information Value Date Recorded Sex Assigned at Not on file 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 Date Signed: 06/30/07 [facility] Procedure Note Santos Rodrigez - 06/30/2007 [...] By: Polo Rodrigez M.D. Date Signed: 06/30/07 [facility] Eliseo Leigh MD MR ORDERABLES Edited documented in this encounter Visit Diagnoses Diagnosis Lumbago documented in this encounter Care Teams Assembler Liquid Center Relationship Specialty Start Date End Date Eliseo Leigh MD [address] [address] PCP - General 04/15/04 11/30/21 documented as of this encounter
--- OUTSIDE RECORDS SUMMARY | 2025-01-30 09:54 | XMS_ITS | Clinical Summary ---
Author Organization [facility] Address [address] [place] [address] Care Team Providers Care Senior Commercial Loan Officer Name Role Phone Eliseo Leigh MD Primary Care Provider [phone] Allergies Active Allergy Reactions Criticality Noted Date Comments Homar Inhibitors Unknown Caused kidney issues per patient Codeine Headache Low Covid-19 Vaccine, Mrna, [id number], Lnp-S (Pfizer) Rash Low 12/11/2020 Covid-19 Vaccine, Mrna, [id number], Lnp-S (Moderna) Rash Low 12/11/2020 Ezetimibe Unknown Weakness, feeling flush Kgqeomf-Glx-Oyv Reductase Inhibitors Muscle Pain,Weakness Low 08/14/2024 Weakness [...] AQ) 55 mcg nasal spray Administer 1 Rincon in each nostril daily. Active cholecalcifero l 1,250 mcg (50,000 unit) Capsule Take 1 Capsule (50,000 Units) by mouth every 7 days. 8 Capsule 4 9:28 AM CDT Active cyanocobalamin (VITAMIN B-12) 1,000 mcg/mL Solution Inject 1 mL (1,000 mcg) by intramuscular injection every 30 days. 10 mL 1 024 Active docusate sodium (Colace) 100 mg capsule Take 1 Capsule (100 mg) by mouth 2 times daily. 60 Capsule 12 Active isosorbide mononitrate (IMDUR) 30 mg Extended [...] BY MOUTH 2 TIMES DAILY 60 Tablet Active Additional Information Patient taking differently:40 mg OralCONTINUOUS PRN, Reported on 01/11/2025 amLODIPine (NORVASC) 5 mg tablet TAKE 1 TABLET (5 MG) BY MOUTH DAILY. 30 Tablet 5 Active hydrOXYzine HCL (ATARAX) 25 mg tablet TAKE 1 TABLET BY MOUTH EVERY 8 HOURS NEEDED FOR ITCHING 90 Tablet 1 025 Active Additional Information Patient not taking.Reason: Ineffective, Reported on 01/11/2025 clobetasoL (TEMOVATE) 0.05 % Cream Apply to affected area 2 times daily. 025 Active Clotrimazole (MYCELEX) 10 mg Pascual Take [...] Patient not taking.Reason: Ineffective, Reported on 01/11/2025 propafenone (RYTHMOL) 150 mg Tablet TAKE 1 TABLET (150 MG) BY MOUTH EVERY 8 HOURS. 90 Tablet 11 Active sertraline (ZOLOFT) 25 mg tablet TAKE ONE TABLET BY MOUTH EVERY DAY 90 Tablet 3 Active propafenone (RYTHMOL) 150 mg Tablet Take 1 Tablet (150 mg) by mouth every 8 hours. 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 [address] [place] [phone] Ritesh Chambers MD 01/14/2025 Results Follow-Up [facility] [address] [place] [address] [phone] Ritesh Chambers MD PACER PROGRAM EVAL DUAL LEAD 01/11/2025 11:30 AM LINING REPAIRER Procedure visit [facility] [address] [facility] [address] [place] [address] [phone] Ritesh Chambers MD Paroxysmal atrial fibrillation (CMS/HCC) (Primary Dx); Sick sinus syndrome (CMS/HCC); Complete heart block (CMS/HCC) 01/11/2025 11:20 AM LINING REPAIRER Office Visit [facility] [address] [place] [phone] Jose Bob CRNP Parvathaneni, Sunthosh, MD Sick sinus syndrome (CMS/HCC) (Primary Dx); Pacemaker - Medtronic; History of transcatheter aortic valve replacement (TAVR); Paroxysmal atrial fibrillation (CMS/HCC); custodial current use of antiarrhythmic drug 01/04/[address] [facility] [address] [place] [address] [phone] Jose Bob CRNP Benign hypertension (Primary Dx) 12/26/2024 11:40 AM LINING REPAIRER Office Visit [facility] [address] [place] [phone] Hayden Canada PA-C Lumbar radiculopathy (Primary Dx); Status post total replacement of right hip - 09/15/2023 12/25/2024 External Device Data STL ABSTRACTION Provider, Abstract 12/24/2024 Orders Only [facility] Health Information Management [place] [address] [place] [address] Provider, Abstract 12/23/2024 Results Follow-Up [facility] [place] [address] [phone] Virgil Lees, CERTIFIED ADAPTED PHYSICAL EDUCATOR CBC WITH DIFFERENTIAL, COMPREHENSIVE METABOLIC PANEL, TICK-BORNE DISEASE AB PANEL W/REFLEX 12/21/2024 11:30 AM LINING REPAIRER Office Visit [facility] [place] [address] [phone] Virgil Lees, CERTIFIED ADAPTED PHYSICAL EDUCATOR Tick bite, unspecified site, initial encounter (Primary Dx); Nodule of skin of right upper extremity; Situational mixed anxiety and depressive disorder 12/21/2024 Telephone [facility] [place] [address] [phone] Eliseo Leigh MD Information 12/20/2024 Telephone [facility] [place] [address] [phone] Eliseo Leigh MD Needs Orders Written 12/20/2024 Telephone [facility] [place] [address] [phone] Eliseo Leigh MD Needs Orders Written; Erroneous encounter-disregard 12/18/2024 Orders Only [facility] Information [facility] [place] [address] [place] [phone] Provider, Abstract 12/12/2024 3:00 PM LINING REPAIRER Clinical Support [facility] [place] [address] [phone] Need for influenza vaccination (Primary Dx) 11/26/2024 Refill [facility] [employer] [place] [address] [phone] Eliseo Leigh MD 11/10/2024 [facility] [address] [place] [address] Eliseo Leigh MD from Last 3 Months Immunizations Immunization Administration [...] on file Legal Sex Female 6:28 AM LINING REPAIRER Gender Identity Not on file Sexual Orientation Not on file Last Filed Vital Signs Vital Sign Reading Time Taken Comments Blood Pressure 120/64 01/11/2025 11:10 AM LINING REPAIRER Pulse 103 01/11/2025 11:10 AM LINING REPAIRER Temperature 36.4 C (97.5 F) 12/21/2024 10:38 AM LINING REPAIRER Respiratory Rate 16 05/21/2024 10:30 AM CDT Oxygen Saturation 95% 12/21/2024 10:38 AM LINING REPAIRER Inhaled Oxygen Concentration - - Weight 63 kg (139 lb) 01/11/2025 11:10 AM LINING REPAIRER Height 162.6 cm (5' 4 ) 01/11/2025 11:10 AM LINING REPAIRER Body Mass Index 23.86 01/11/2025 11:10 AM LINING REPAIRER Plan of Treatment Upcoming Encounters Date Type Department Care Team (Late st Contact Info) Description 04/16/2025 8:00 AM CDT Procedure visit [facility] [address] [facility] [address] [place] [phone] Ritesh Chambers MD [address] [place] [phone] 06/27/2025 11:30 AM CDT Appointment [facility] [address] [place] [address] Jarocho Good MD [address] [place] [phone] 06/27/2025 1:30 PM CDT Office Visit [facility] [address] [place] [phone] Jarocho Good MD [address] [place] [phone] 01/13/2026 10:40 AM LINING REPAIRER Office Visit [facility] [address] [place] [phone] Jose Bob CRNP [address] [place] [phone] Ritesh Chambers MD [address] [place] [phone] Nedra Zapata, ORALIA [address], [address] [place] [phone] Health Maintenance Due Date Last Done Comments ZOSTER VACCINE (2 of 3) 11/02/2011 09/07/2011 RSV VACCINE (60+ or ) (1 - 1-dose 75+ series) 2013 COLORECTAL SCREENING 03/15/2017 03/15/2012, 03/15/19 13 DTAP/TDAP/TD VACCINES (2 - T d or Tdap) 03/12/2018 03/12/2008 OSTEOPOROSIS SCREENING 09/03/2019 5, 09/02/2014, 09/02/2014, Additional history exists Traditional Medicare (ACO) A nnual Wellness Visit 03/31/2024 03/30/2023 COVID-19 Vaccine (2 - 2024-2 6 season) 2024 08/29/2020 PNEUMOCOCCAL VACCINE 50+ YEARS Completed 0 10/30/2019, 03/21/2014, 03/12/2008, Additional history exists INFLUENZA VACCINE Completed 12/12/2024, , 01/10/2023, Additional history exists Medical Devices Implanted Type Area Label Paster Device Identifier Shelf Expiration Date Model / Serial / Lot Log [id number] - Cement - 1 - Simplex W/Tobra 6197-9-001 Implanted:Qty : 1 on 11/16/2010 Cement Right: Knee LAURIE[employer] OR[employer] 05/08/2012 6197-9-001 / / [id number] Simplex W/Tobra 6197-9-001 - Sna Implanted:Qty : 2 on 03/01/2011 Cement Left: Knee [employer] 09/29/2012 6197-9-001 / NA / [id number] Cement Activos W/Judd C10a Implanted:02/2014 by Scott Posadas MD (Quantity not on file) Cement Vertebrae MEDTRONIC - SPINAL fka KYPHON 10/07/2016 C10A / / [id number] Description:T12 Kyphoplasty Closure Perclose Prostyle Sut Mediate 00017-83 - [id number] Implanted:Qty : 1 on 06/22/2022 at [facility] Closure Device Right: Groin MAGUIRE- VASC DEVICE 04/06/2024 01645-97 / / [id number] Closure Perclose Prostyle Sut Mediate 88086-57 - [id number] Implanted:Qty : 1 on 06/22/2022 at [facility] Closure Device Right: Groin MAGUIRE- VASC DEVICE 04/06/2024 94414-20 / / [id number] Dev Closure Angioseal 6fr Vip [id number] - [id number] Implanted:Qty : 1 on 06/22/2022 at [facility] Closure Device Left: Groin MAGUIRE [facility] 01/06/2023 [id number] / / [id number] Lens Io Tecnis 1pc 22 [id number] - [id number] Implanted:Qty : 1 on 05/24/2013 by Angel Muse MD Eye Left: Eye [employer] 01/23/2017 [id number] / [id number] / Log [id number] - Bard Patches, Pledgets, Jonelle, Fabrics - 1 - [place] Ptfe Thck 1.6mmx2.5x2.5 cm [id number] Implanted:Qty : 1 on 12/18/2008 Graft CR BARD- JOHNNIE VASC INC 01/07/2013 137459 / / [id number] Log 88739 - Bard Patches, Pledgets, Jonelle, Fabrics - 2 - [place] Ptfe Thck 1.6mmx2.5x2.5 cm [id number] Implanted:Qty : 1 on 12/18/2008 Graft CR BARD- JOHNNIE VASC INC 07/08/2013 [id number] / / [id number] Head Fem Cer 01/20 40mm 1365-40-710 - [id number] Implanted:Qty : 1 on 09/15/2023 by Julio Macdonald MD at [facility] Hip Right: Hip J&J- DEPUY OR[employer]OP[employer] INC [id number] 06/06/2028 0 / / [id number] Stem Fem Actis Hi Colr Sz5 1010-12-050 - [id number] Implanted:Qty : 1 on 09/15/2023 by Julio Macdonald MD at [facility] Hip Right: Hip J&J- [employer]Y [employer] INC [id number] 08/06/2033 1010-01-11 0 / / [id number] Log [id number] - Laurie Total Knee - 1 - Comp Fem Trthln Cr Sz4 Rt 5510-F-402 Implanted:Qty : 1 on 11/16/2010 Knee Right: Knee [employer] 07/09/2015 5510-F-402 / / [id number] Log [id number] - Amity Total Knee - 1 - Comp Tib Triathlon Cmnt 5520-B-400 Implanted:Qty : 1 on 11/16/2010 Knee Right: Knee [employer] 09/08/2015 5520-B-400 / / [id number] Log [id number] - Laurie Total Knee - 1 - Insert Tib Trthln X3 5531-G-411 Implanted:Qty : 1 on 11/16/2010 Knee Right: Knee [employer] 08/08/2015 5531-G-411 / / [id number] Log [id number] - Amity Total Knee - 1 - Patella Trthln [...] [employer] 09/30/2015 5531-P-411 / NA / [id number] Patella Trthln Sym Poly 5550-L-339 - Sna Implanted:Qty : 1 on 03/01/2011 Knee Left: Knee LAURIE- HOWMEDICA INT INC 10/31/2015 5550-L-339 / NA / [id number] Lead Pacing Capsure Fix Novus 52cm [id number] - [facility] [place] [id number] Implanted:Qty : 1 on 10/14/2022 at [facility] Lead Left: Chest [employer]- CRM - BULK BUY 12/25/2023 [id number] / [id number] / Pacemaker Teresa Xt Surescan [id number] Pacemaker [employer]- CRM - BULK BUY [id number] 11/21/2019 W1DR01 / [id number] / Pacemaker Drake Xt Dr Woods g Dual Chmbr Surescan W1dr01 - [id number] Implanted:Qty : 1 on 10/14/2022 at [facility] Pacemaker Left: Chest [employer]- CRM - BULK BUY 03/06/2024 W1DR01 / [id number] / Pin Headless Fltd 02/14 [id number] Implanted:Qty : 1 on 11/16/2010 Kris [employer] [id number] / / Description:moved down from pick list- Implant Type-TS Dlvry Sys Evolut Fx 23-29mm W-Bzkiktrc-17 29 - [id number] Implanted:Qty : 1 on 06/22/2022 at [facility] Valve N/A: Heart [employer]- HEART VALVE 02/11/2024 D-EVOLUTFX -2329 / [id number] / [id number] 75 Vlv Aort Evolut Fx Tavr 26mm Evolutfx-26 - [id number] Implanted:Qty : 1 on 06/22/2022 at [facility] Valve N/A: Aorta [employer]- HEART VALVE 04/05/2024 EVOLUTFX-2 6 / [id number] / [id number] - [id number] Implanted:Qty : 1 on 12/18/2008 Heart 05/08/2013 LXA25 / [id number] / Description:SorinGroup Mitro flow Aortic Heart Valve (size 25mm) Liner Acet Emphasys [id number] Implanted:Qty : 1 on 09/15/2023 by Julio Macdonald MD at [facility] Right: Hip 06/06/2028 [id number] / / [id number] Shell Acet Emphyasys 54mm 3h Implanted:Qty : 1 on 09/15/2023 by Julio Macdonald MD at [facility] Right: Hip 07/07/2033 [id number] / / [id number] Procedures Procedure Name Priority Date/Time Associated Diagnosis Comments MD PROGRAM EVAL IMPLANTABLE IN PERSN DUAL LD PACER Routine 01/14/2025 10:47 AM LINING REPAIRER Paroxysmal atrial fibrillation (CMS/HCC) Sick sinus syndrome (CMS/HCC) Complete heart block (CMS/HCC) MD ECG ROUTINE ECG W/LEAST 12 LDS W/I&R Routine 01/11/2025 11:21 AM LINING REPAIRER Benign hypertension COMPREHENSIVE METABOLIC PANEL Routine 12/21/2024 12:24 PM LINING REPAIRER Tick bite, unspecified site, initial encounter CBC WITH DIFFERENTIAL Routine 12/21/2024 12:24 PM LINING REPAIRER Tick bite, unspecified site, initial encounter TICK-BORNE DISEASE AB PANEL W/REFLEX Routine 12/21/2024 12:24 PM LINING REPAIRER Tick bite, unspecified site, initial encounter COMPREHENSIVE METABOLIC PANEL Routine 12/08/2024 9:10 AM CDT COMPREHENSIVE METABOLIC PANEL Routine 12/03/2024 11:14 AM CDT XR DEXA BONE DENSITY AXIAL 1 OR MORE SITES Routine 09/02/2014 1:04 PM CDT Menopausal disorder from Last 3 Months or Most Recently Relevant to Health Maintenance Results * MD PROGRAM EVAL IMPLANTABLE IN PERSN DUAL LD PACER (01/14/2025 10:47 AM LINING REPAIRER) Narrative [facility] - 01/14/2025 10:47 AM LINING REPAIRER [place] 01/14/2025 10:47 AM Office Device Check By Vendor Infrastructure Engineer Date of Procedure: January 11, 2025 Label Paster: Medtronic Comments: Office check by Medtronic counter sales representative in conjunction w/ EP office visit. Interrogation reviewed by provider. Please see scan for details. Procedure Note [place] - 01/14/2025 10:47 AM CST Office Device Check By Vendor Infrastructure Engineer Date of Procedure: January 11, 2025 Label Paster: Medtronic Comments: Office check by Medtronic counter sales representative in conjunction w/ EPoffice visit. Interrogation reviewed by provider. Please see scan for details. us Ritesh Chambers MD CARDIAC SERVICES SYED NOE Final Result [facility] [address] [facility] [place] [address] * MD ECG ROUTINE ECG W/LEAST 12 LDS W/I&R (01/11/2025 11:21 AM LINING REPAIRER) Narrative [facility] - 01/11/2025 11:21 AM LINING REPAIRER Jose Bob CRNP 01/11/2025 12:07 PM 12 Lead EKG: Rhythm: Atrial paced rhythm with PACs, left axis deviation right bundle branch block, minimal voltage criteria for LVH, septal infarct age undetermined-abnormal ECG, ventricular rate 103 bpm, MD interval 178 ms, QRS duration 134 ms, QTc 508 ms Procedure Note Jose Bob CRNP - 01/11/2025 11:21 AM CST 12 Lead EKG: Rhythm: Atrial paced rhythm with PACs, left axis deviationright bundle branch block, minimal voltage criteria for LVH, septalinfarct age undetermined-abnormal ECG, ventricular rate 103 bpm, PRinterval 178 ms, QRS duration 134 ms, QTc 508 ms Jose HUFFMAN ECG ORDERABLES Final Re sult [facility] [id number] [address] [facility] [address] [place] [address], * TICK-BORNE DISEASE AB PANEL W/REFLEX (12/21/2024 12:24 PM LINING REPAIRER) A.PHAGOCYTOPH IGG <1:64 [facility], A.PHAGOCYTOPH IGM <1:20 [facility], ANAPLASMA PHAGOCYTOPHILUM INTERP [facility]/ [facility], Comment: ANTIBODY NOT DETECTED REFERENCE RANGE: IgG <1:64 IgM <1:20 Anaplasma phagocytophilum is the tick-borne agent causing Human Granulocytic Ehrlichiosis (HGE). HGE is distinct and separate from Human Monocytic Ehrlichiosis (HME), caused by Ehrlichia chaffeensis. Serologic cross-reactivity between A. phagocytophilum and E. Chaffeensis is minimal (5-15%). This test was developed and its analytical performance characteristics have been determined by [facility]. It has not been cleared or approved by FDA. This assay has been validated pursuant to the CLIA regulations and is used for clinical purposes. BABESIA DUNCANI/WA1 IGG AB <1:256 [facility] Real [facility]/ [facility], Comment: REFERENCE RANGE: <1:256 INTERPRETIVE CRITERIA: <1:256 Antibody not detected > or = 1:256 Antibody detected Babesia tavaresi, also known as WA1, has been associated with symptoms similar to those caused by Babesia microti. Little, if any, cross-reactivity occurs between Babesia microti and WA1. This test was developed and its analytical performance characteristics have been determined by [facility]. It has not been cleared or approved by FDA. This assay has been validated pursuant to the CLIA regulations and is used for clinical purposes. BABESIA MICROTI IGG AB <1:64 titer [facility]/ [facility], BABESIA MICROTI IGM AB <1:20 titer [facility]/ [facility], BABESIA MICROTI INTERPRETATION [facility]/ [facility], Comment: ANTIBODY NOT DETECTED REFERENCE [...] analytical performance characteristics have been determined by [facility]. It has not been cleared or approved by FDA. This assay has been validated pursuant to the CLIA regulations and is used for clinical purposes. LYME IGG, IGM AB <0.90 INDEX Que [facility]/ [facility], Comment: REFERENCE RANGE: <0.90 Index [...] is apparent. EHRLICHIA CHAFFEENSIS IGG AB <1:64 [facility]/ [facility], EHRLICHIA CHAFFEENSIS IGM AB <1:20 [facility]/ [facility], EHRLICHIA CHAFFEENSIS INTERP [facility]/ [facility], Comment: ANTIBODY NOT DETECTED REFERENCE [...] analytical performance characteristics have been determined by [facility]. It has not been cleared or approved by FDA. This assay has been validated pursuant to the CLIA regulations and is used for clinical purposes. FASTING:NO FASTING: NO Test Performed at: [facility], [address] [place] [address] Jayne López MD,PhD,RADHA Blood 12/21/2024 12:2 4 PM LINING REPAIRER 12/21/2024 12:25 PM LINING REPAIRER us Virgil Lees NP CHEMISTRY ORDERABLES Final Resu lt [facility] [phone] [facility], [address] [place] [address] * (ABNORMAL) CBC WITH DIFFERENTIAL (12/21/2024 12:24 PM LINING REPAIRER) WBC 6.6 3.8 - 10.8 Thousand/u L [facility] RBC 4.39 3.80 - 5.10 Million/uL [facility] HEMOGLOBIN 12.8 11.7 - 15.5 g/dL [facility] HEMATOCRIT 39.0 35.0 - [...] NEUTROPHIL ABSOLUTE 3,828 1,500 - 7,800 cells/uL [facility] LYMPHOCYTE ABSOLUTE 1,762 850 - 3,900 cells/uL [facility] MONOCYTE ABSOLUTE 884 200 - 950 cells/uL [facility] EOSINOPHIL ABSOLUTE 92 15 - 500 cells/uL [facility] BASOPHILS ABSOLUTE 33 0 - 200 cells/uL [facility] NEUTROPHIL 58 % [facility] LYMPHOCYTES 26.7 % [facility] MONOCYTE 13.4 % [facility] EOSINOPHILS 1.4 % [facility] BASOPHILS 0.5 % [facility] Comment: FASTING:NO FASTING: NO Test Performed at: [facility] [address] [place] [address] Olvin Love Blood 12/21/2024 12:2 4 PM LINING REPAIRER 12/21/2024 12:25 PM LINING REPAIRER us Virgil Lees NP HEMATOLOGY ORDERABLES Final Res ult [facility] [phone] [facility] [address] [place] [address] * (ABNORMAL) COMPREHENSIVE METABOLIC PANEL (12/21/2024 12:24 PM LINING REPAIRER) Only the most recent of3 resultswithin the time period is included. GLUCOSE 114 65 - 139 mg/dL [facility] Comment: Non-fasting reference interval BUN 17 7 - 25 mg/dL [facility] CREATININE 1.41(H) 0.60 - 0.95 mg/dL [facility] RR GFR 36(L) > OR = 60 mL/min/1.7 3m2 [facility] RR BUN/CREAT RATIO 12 6 - 22 (calc) [facility] SODIUM 140 135 - 146 mmol/L [facility] POTASSIUM 3.9 3.5 - 5.3 mmol/L [facility] CHLORIDE 105 98 - 110 mmol/L [facility] CO2 27 20 - 32 mmol/L [facility] CALCIUM 8.8 8.6 - 10.4 mg/dL [facility] TOTAL PROTEIN 6.1 6.1 - 8.1 g/dL [facility] ALBUMIN 3.6 3.6 - 5.1 g/dL [facility] GLOBULIN 2.5 1.9 - 3.7 g/dL (calc) [facility] RR ALBUMIN/GLOBULIN RATIO 1.4 1.0 - 2.5 (calc) [facility] BILIRUBIN TOTAL 0.5 0.2 - 1.2 mg/dL [facility] [place] [facility] ALKALINE PHOSPHATASE 95 37 - 153 U/L [facility] AST 20 10 - 35 U/L [facility] ALT 14 6 - 29 U/L [facility] Comment: FASTING:NO FASTING: NO Test Performed at: [facility] RR [address] [place] [address] Olvin Love Blood 12/21/2024 12:2 4 PM LINING REPAIRER 12/21/2024 12:25 PM LINING REPAIRER us Virgil Lees NP CHEMISTRY ORDERABLES Final Resu lt [facility] [phone] [facility] [address] [place] [address] * XR DEXA BONE DENSITY AXIAL 1 [...] Insurance [address] [place] [address] MEDICARE PART A AND B [facility] [id number] * Guarantor: JACKLYN SCHULTZ Account Type Relation to Patient Date of Phone Billing Address Personal/Family [address] [place] [address] RX ALLWIN DATA Medicare Part B RX [employer] RX Member Subscriber Plan / Payer (Ef fective 2022-Present) Name:Jacklyn Schultz Relation to Subscriber:Self Name:Jacklyn Schultz Payer ID:Not on file Group ID:[id number] Type:RX Commercial Address: [address] Advance Directives For more information, please contact: [phone] * Full Code (Latest Code Status on [...] PM 06/17/2022 5:55 PM Care Teams Senior Commercial Loan Officer Relationship Specialty Start Date End Date Eliseo Leigh MD [address] [address] PCP - General Family Practice 01/30/24
--- OUTSIDE RECORDS SUMMARY | 2025-01-30 09:54 | XMS_ITS | Encounter Summary ---
Author Organization [facility] Address [address] [place] [address] Care Team Providers Care Steersman Name Role Phone Eliseo Leigh MD Primary Care Provider Encounter Details Date Type Department Care Team (Latest Contact Info) Description 04/15/2004 Outpatient Historical [facility] [place] [address] [place] [address] Eliseo Leigh MD [address] [place] [address] JOINT PAIN-L/LEG (Primary Dx); HYPERTENSION NOS; SYNOVITIS NOS Social History Tobacco Use Types Packs/Day Years Used Date Smoking Tobacco: Never Assessed Comments Unknown Sex and Gender Information Value Date Recorded Sex Assigned at Not on file Legal Sex Female 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
--- OUTSIDE RECORDS SUMMARY | 2025-01-30 09:54 | XMS_ITS | Encounter Summary ---
Author Organization [facility] Address [address] [place] [address] Care Team Providers Care Molded Goods Inspector Trimmer Name Role Phone Eliseo Leigh MD Primary Care Provider [phone] Encounter Details Date Type Department Care Team (Late st Contact Info) Description 08/23/2000 Outpatient Historical [facility] [address] [place] [address] Yimi Buenrostro MD [address] [place] [address] Osteoarthrosis, unspecified whether generalized or localized, unspecified site (Primary Dx); Unspecified essential hypertension; Hyperpotassemia; Unspecified hypothyroidism Social History Tobacco Use Types Packs/Day Years Used Date Smoking Tobacco: Never Assessed Comments Unknown Sex and Gender Information Value Date Recorded Sex Assigned at Not on file 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
--- OUTSIDE RECORDS SUMMARY | 2025-01-30 09:54 | XMS_ITS | Encounter Summary ---
Author Organization [facility] Address [address] [place] [address] Care Team Providers Care Shipwright Supervisor Name Role Phone Eliseo Leigh MD Primary Care Provider [phone] Encounter Details Date Type Department Care Team (Latest Contact Info) Description 10/15/2005 Outpatient 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
--- OUTSIDE RECORDS SUMMARY | 2025-01-30 09:54 | XMS_ITS | Encounter Summary ---
Author Organization [facility] Address [address] [facility] [place] [address] Care Team Providers Care Vice President Of Nursing Name Role Phone Eliseo Leigh MD Primary Care Provider [phone] Encounter Details Date Type Department Care Team (Late st Contact Info) Description 08/31/2000 Outpatient Historical [facility] Yimi Buenrostro MD [address] [place] [address] Hypopotassemia (Primary Dx) Social History Tobacco Use Types Packs/Day Years Used Date Smoking Tobacco: Never Assessed Comments Unknown Sex and Gender Information Value Date Recorded Sex Assigned at Not on file 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
--- OUTSIDE RECORDS SUMMARY | 2025-01-30 09:54 | XMS_ITS | Encounter Summary ---
Author Organization [facility] Address [address] [place] [address] Care Team Providers Care Diamond Assorter Name Role Phone Eliseo Leigh MD Primary Care Provider Reason for Referral * Radiology Services (Routine) - Closed Specialty Diagnoses / Procedures Referred By Contac t Referred To Contact Cardiology Diagnoses Pacemaker battery depletion Procedures CL BATTERY CHANGE Juan Wni MD [facility] Cardiac Teasel Gig Operator [address] [place] [address] Phone: tel: fax: Referral ID Status Reason Start Date Expiration Date Visits Re quested Visits Authorized [id number] Closed 07/10/2018 08/10/2019 1 1 Encounter Details Date Type Department Care Team (Late st Contact Info) Description 07/10/2018 Ancillary Orders [facility] Cardiology- [place] [address] [place] [address] Juan Win MD NO ADDRESS ON FILE Pacemaker battery depletion Social History Tobacco Use Types Packs/Day Years Used Date Smoking Tobacco: Never Smokeless Tobacco: Never Alcohol Use Standard Drinks/Week Comments No 0 (1 standard drink = 0.6 oz pur e alcohol) Comments No Sex and Gender Information Value Date Recorded Sex Assigned at Not on file 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 2. Right atrial lead reused is a Medtronic 5076, serial number [id number]. 3. Right ventricular lead reused is a Medtronic 5076, serial number [id number]. 4. New pulse generator is a Medtronic Mayer W1DR01, serial number [id number]. PROCEDURE: After informed consent obtained, the patient [...] explanted was a Medtronic Sensia SEDR01, serial [id number]. 2. Right atrial lead reused is a Medtronic 5076, serial [id number]. 3. Right ventricular lead reused is a Medtronic 5076, serial [id number]. 4. New pulse generator is a Medtronic Teresa W1DR01, serial [id number]. PROCEDURE: After informed consent obtained, the patient [...] and 3000 ohms. SDW/ama - transcribed in [facility] - [place] Juan Win MD FLUOROSCOPY ORDERABLES Abby mittal Result [facility] documented in this encounter Visit Diagnoses Diagnosis Pacemaker battery depletion Fitting and adjustment of cardiac pacemaker Pacemaker - Medtronic- Primary Cardiac pacemaker in situ Pacemaker battery depletion Fitting and adjustment of cardiac pacemaker documented in this encounter Care Teams Diamond Assorter Relationship Specialty Start Date End Date Eliseo Leigh MD [address] [phone] PCP - General 04/15/04 11/30/21 documented as of this encounter
--- OUTSIDE RECORDS SUMMARY | 2025-01-30 09:54 | XMS_ITS | Encounter Summary ---
Author Organization [facility] Address [address] [place] [address] Care Team Providers Care Highway Engineer Name Role Phone Eliseo Leigh MD Primary Care Provider Encounter Details Date Type Department Care Team (Latest Contact Info) Description 09/11/2013 Ancillary Orders [facility] Pre-Registration [place] CALL TO MAKE APPOINTMENT ONLY [address] [place] [address] Eliseo Leigh MD [address] [address] Other screening mammogram (Primary Dx) Social History Tobacco Use Types Packs/Day Years Used Date Smoking Tobacco: Never Smokeless Tobacco: Never Alcohol Use Standard Drinks/Week Comments No 0 (1 standard drink = 0.6 oz pur e alcohol) Comments No Sex and Gender Information Value Date Recorded Sex Assigned at Not on file 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
--- OUTSIDE RECORDS SUMMARY | 2025-01-30 09:54 | XMS_ITS | Encounter Summary ---
Author Organization [facility] Address [address] [place] [address] Care Team Providers Care Change Analyst Name Role Phone Eliseo Leigh MD Primary Care Provider [phone] Encounter Details Date Type Department Care Team (Latest Contact Info) Description 02/23/2001 Outpatient Historical [facility] Int [facility] [place] [address] [place] [address] Dennys Hudson MD [address] [place] [address] ABDOMINAL PAIN UNSPEC SITE (Primary Dx); HYPOTHYROIDISM NOS Social History Tobacco Use Types Packs/Day Years Used Date Smoking Tobacco: Never Assessed Comments Unknown Sex and Gender Information Value Date Recorded Sex Assigned at Not on file 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
--- OUTSIDE RECORDS SUMMARY | 2025-01-30 09:54 | XMS_ITS | Encounter Summary ---
Author Organization [facility] Address [address] [facility] [place] [address] Care Team Providers Care Executive Team Leader Name Role Phone Eliseo Leigh MD Primary Care Provider [phone] Encounter Details Date Type Department Care Team (Latest Contact Info) Description 12/02/2004 Outpatient Historical [facility] Cardiology Ancillary [facility] [address] [place] [address] Taran Porter MD NO ADDRESS ON FILE Aortic valve disorder (Primary Dx) Social History Tobacco Use Types Packs/Day Years Used Date Smoking Tobacco: Never Assessed Comments Unknown Sex and Gender Information Value Date Recorded Sex Assigned at Not on file 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
--- OUTSIDE RECORDS SUMMARY | 2025-01-30 09:54 | XMS_ITS | Encounter Summary ---
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
--- OUTSIDE RECORDS SUMMARY | 2025-01-30 09:54 | XMS_ITS | Encounter Summary ---
Author Organization [facility] Address [address] [place] [address] Care Team Providers Care Counselor/Art Therapist Name Role Phone Eliseo Leigh MD Primary Care Provider [phone] Encounter Details Date Type Department Care Team (Latest Contact Info) Description 08/11/2001 Outpatient Historical [facility] Int [facility] [place] [address] [place] [address] Dennys Hudson MD [address] [place] [address] HYPERTENSION NOS (Primary Dx); HYPOTHYROIDISM NOS; OSTEOPOROSIS NOS Social History Tobacco Use Types Packs/Day Years Used Date Smoking Tobacco: Never Assessed Comments Unknown Sex and Gender Information Value Date Recorded Sex Assigned at Not on file 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
--- OUTSIDE RECORDS SUMMARY | 2025-01-30 09:54 | XMS_ITS | Encounter Summary ---
Author Organization [facility] Address [address] [place] [address] Care Team Providers Care Supply Chain Vice President Name Role Phone Eliseo eLigh MD Primary Care Provider [phone] Reason for Visit * Reason Comments Med Refill Encounter Details Date Type Department Care Team (Late st Contact Info) Description 01/25/2025 Refill [facility] [address] [facility] [address] [place] [address] Ritesh Chambers MD [address] [facility] [address] [place] [address] Social History Tobacco Use Types Packs/Day [...] on file Legal Sex Female 6:28 AM CLIPPER AUTOMATIC Gender Identity Not on file Sexual Orientation Not on file documented as of this encounter Plan of Treatment Upcoming Encounters Date Type Department Care Team (Late st Contact Info) Description 04/16/2025 8:00 AM CDT Procedure visit [facility] [address] [place] [phone] Ritesh Chambers MD [address] [place] [address] 06/27/2025 11:30 AM CDT Appointment [facility] [address] [place] [address] Jarocho Good MD [address] [place] [phone] 06/27/2025 1:30 PM CDT Office Visit [facility] [address] [place] [address] Jarocho Good MD [address] [place] [phone] 01/13/2026 10:40 AM CLIPPER AUTOMATIC Office Visit [facility] [address] [place] [address] Jose Bob CRNP [address], [address] [place] [address] Ritesh Chambers MD [address] [place] [phone] Nedra Zapata NP [address], [address] [place] [address] documented as of this encounter Visit Diagnoses Not on filedocumented in this encounter Care Teams Supply Chain Vice President Relationship Specialty Start Date End Date Eliseo Leigh MD [address] [address] PCP - General Family Practice 01/30/24 documented as of this encounter
--- OUTSIDE RECORDS SUMMARY | 2025-01-30 09:54 | XMS_ITS | Encounter Summary ---
Author Organization [facility] Address [address] [place] [address] Care Team Providers Care Advertising Space Clerk Name Role Phone Eliseo Leigh MD Primary Care Provider [phone] Encounter Details Date Type Department Care Team (Latest Contact Info) Description 06/27/2007 Outpatient Historical [facility] [place] [address] [place] [address] Lyndon Magaña, PA [address] [place] [address] Pain in Joint, Pelvic Region and Thigh; Congenital Spondylolisthesis; Unspecified Disorder of Thyroid; Unspecified Essential Hypertension; Headache; Personal History of Allergy to Analgesic Agent Social History Tobacco Use Types Packs/Day Years Used Date Smoking Tobacco: Never Assessed Comments No Sex and Gender Information Value Date Recorded Sex Assigned at Not on file 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
--- OUTSIDE RECORDS SUMMARY | 2025-01-30 09:54 | XMS_ITS | Encounter Summary ---
Author Organization [facility] Address [address] 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
--- OUTSIDE RECORDS SUMMARY | 2025-01-30 09:54 | XMS_ITS | Encounter Summary ---
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
--- OUTSIDE RECORDS SUMMARY | 2025-01-30 09:54 | XMS_ITS | Encounter Summary ---
Author Organization [facility] Address [address] [facility] [address] Care Team Providers Care Lead Electrical Engineer Name Role Phone Eliseo Leigh MD Primary Care Provider [phone] Encounter Details Date Type Department Care Team (Latest Contact Info) Description 02/23/2001 Outpatient Historical [facility] [place] [address] 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
--- OUTSIDE RECORDS SUMMARY | 2025-01-30 09:54 | XMS_ITS | Encounter Summary ---
Author Organization [facility] Address [address] [facility] [place] [address] Care Team Providers Care Sewer And Drain Technician Name Role Phone Eliseo Leigh MD Primary Care Provider [phone] Encounter Details Date Type Department Care Team (Latest Contact Info) Description 08/23/2000 Outpatient Historical [facility] Tony Pollard MD NO ADDRESS ON FILE Chondromalacia patellae (Primary Dx); Pain in joint, lower leg; Pain in joint, ankle and foot Social History Tobacco Use Types Packs/Day Years Used Date Smoking Tobacco: Never Assessed Comments Unknown Sex and Gender Information Value Date Recorded Sex Assigned at Not on file 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
--- OUTSIDE RECORDS SUMMARY | 2025-01-30 09:54 | XMS_ITS | Encounter Summary ---
Author Organization [facility] Address [address] [place] [address] Care Team Providers Care Transaction Coordinator Name Role Phone Eliseo Leigh MD Primary Care Provider [phone] Encounter Details Date Type Department Care Team (Late st Contact Info) Description 07/28/[address] 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
--- OUTSIDE RECORDS SUMMARY | 2025-01-30 09:54 | XMS_ITS | Encounter Summary ---
Author Organization [facility] Address [address] [place] [address] Care Team Providers Care Fire Hydrant Mechanic Name Role Phone Eliseo Leigh MD Primary Care Provider [phone] Encounter Details Date Type Department Care Team (Latest Contact Info) Description 01/11/2006 Outpatient Historical [facility] [place] [place] [address] Eliseo Leigh MD [address] [place] [address] Other Malaise and Fatigue (Primary Dx); Unspecified Hypothyroidism; Undiagnosed Cardiac Murmurs; Unspecified Chest Pain; Vaccine for influenza Social History Tobacco Use Types Packs/Day Years Used Date Smoking Tobacco: Never Assessed Comments Unknown Sex and Gender Information Value Date Recorded Sex Assigned at Not on file 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 Gender Identity Not on file Sexual Orientation Not on file documented as of this encounter Plan of Treatment Not on file documented as of this encounter Visit Diagnoses Diagnosis Other malaise and fatigue- Primary Unspecified hypothyroidism Undiagnosed cardiac murmurs Chest pain, unspecified Vaccine for influenza Need for prophylactic vaccination and inoculation against influenza documented in this encounter Care Teams Fire Hydrant Mechanic Relationship Specialty Start Date End Date Eliseo Leigh MD [address] [phone] PCP - General 04/15/04 11/30/21 documented as of this encounter
--- OUTSIDE RECORDS SUMMARY | 2025-01-30 09:54 | XMS_ITS | Encounter Summary ---
Author Organization [facility] Address [address] [place] [address] Care Team Providers Care Sprinkler Truck Driver Name Role Phone Eliseo Leigh MD Primary Care Provider Encounter Details Date Type Department Care Team (Latest Contact Info) Description 04/15/2004 Outpatient Historical [facility] [place] [address] [place] [address] Eliseo Leigh MD [address] [place] [address] JOINT EFFUSION-L/LEG (Primary Dx) Social History Tobacco Use Types Packs/Day Years Used Date Smoking Tobacco: Never Assessed Comments Unknown Sex and Gender Information Value Date Recorded Sex Assigned at Not on file 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
--- OUTSIDE RECORDS SUMMARY | 2025-01-30 09:54 | XMS_ITS | Encounter Summary ---
Author Organization [facility] Address [address] [facility] [address] Care Team Providers Care Inspector Material Disposition Name Role Phone Eliseo Leigh MD Primary Care Provider [phone] Encounter Details Date Type Department Care Team (Latest Contact Info) Description 11/01/2000 Outpatient Historical [facility] Tony Pollard MD NO ADDRESS ON FILE Unspecified closed fracture of ankle (Primary Dx) Social History Tobacco Use Types Packs/Day Years Used Date Smoking Tobacco: Never Assessed Comments Unknown Sex and Gender Information Value Date Recorded Sex Assigned at Not on file 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
--- OUTSIDE RECORDS SUMMARY | 2025-01-30 09:54 | XMS_ITS | Encounter Summary ---
Author Organization [facility] Address [address] [place] [address] Care Team Providers Care Spray Pilot Name Role Phone Eliseo Leigh MD Primary Care Provider [phone] Encounter Details Date Type Department Care Team (Latest Contact Info) Description 06/11/2009 Ancillary Orders [facility] [address] [facility] [address] [place] [address] Eliseo Leigh MD [address] [facility] [address] [place] [address] Other (Abnormal) Findings on Radiological Examination of Breast Social History Tobacco Use Types Packs/Day Years Used Date Smoking Tobacco: Never Alcohol Use Standard Drinks/Week Comments No 0 (1 standard drink = 0.6 oz pur e alcohol) Comments No Sex and Gender Information Value Date Recorded Sex Assigned at Not on file 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
--- OUTSIDE RECORDS SUMMARY | 2025-01-30 09:54 | XMS_ITS | Encounter Summary ---
Author Organization [facility] Address [address] [facility] 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
--- OUTSIDE RECORDS SUMMARY | 2025-01-30 09:54 | XMS_ITS | Encounter Summary ---
Author Organization [facility] Address [address] [place] [address] Care Team Providers Care Strap Folding Machine Operator Name Role Phone Eliseo Leigh MD Primary Care Provider [phone] Encounter Details Date Type Department Care Team (Latest Contact Info) Description 04/15/2004 Outpatient Historical [facility] [place] [address] 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
--- OUTSIDE RECORDS SUMMARY | 2025-01-30 09:54 | XMS_ITS | Encounter Summary ---
Author Organization [facility] Address [address] [place] [address] Care Team Providers Care Microsoft Application Developer Name Role Phone Eliseo Leigh MD Primary Care Provider [phone] Encounter Details Date Type Department Care Team (Late st Contact Info) Description 03/31/2005 Outpatient Historical [facility] [address] [place] [address] Elyssa Cooper, RN NO ADDRESS ON FILE Social History Tobacco Use Types Packs/Day Years Used Date Smoking Tobacco: Never Assessed Comments Unknown Sex and Gender Information Value Date Recorded Sex Assigned at Not on file 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
--- OUTSIDE RECORDS SUMMARY | 2025-01-30 09:54 | XMS_ITS | Encounter Summary ---
Author Organization [facility] Address [address] [place] [address] Care Team Providers Care Pecan Cleaner Name Role Phone Eliseo Leigh MD Primary Care Provider [phone] Encounter Details Date Type Department Care Team (Late st Contact Info) Description 03/18/2008 Ancillary Orders [facility] [address] [facility] [address] [place] [address] Eliseo Leigh MD [address] [facility] [address] [place] [address] Screening Mammogram Social History Tobacco Use Types Packs/Day Years Used Date Smoking Tobacco: Never Alcohol Use Standard Drinks/Week Comments No 0 (1 standard drink = 0.6 oz pur e alcohol) Comments No Sex and Gender Information Value Date Recorded Sex Assigned at Not on file 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
--- OUTSIDE RECORDS SUMMARY | 2025-01-30 09:54 | XMS_ITS | Encounter Summary ---
Author Organization [facility] Address [address] [place] [address] Care Team Providers Care Medical Laboratory Technologist Name Role Phone Eliseo Leigh MD Primary Care Provider [phone] Reason for Referral * Outpatient Services (Routine) - Closed Specialty Diagnoses / Procedures Referred By Michael t Referred To Contact Diagnoses Other screening mammogram Procedures MAMMO DIGITAL SCREEN BILAT Eliseo Leigh MD [address] [address] Phone: tel: fax: Referral ID Status Reason Start Date Expiration Date Visits Re quested Visits Authorized [id number] Closed 05/29/2010 11/25/2010 1 1 Encounter Details Date Type Department Care Team (Latest Contact Info) Description 05/29/2010 Ancillary Orders [facility] Pre-Registration [place] CALL TO MAKE APPOINTMENT ONLY [address] [place] [address] Eliseo Leigh MD [address] [address] Other screening mammogram Social History Tobacco Use Types Packs/Day Years Used Date Smoking Tobacco: Never Alcohol Use Standard Drinks/Week Comments No 0 (1 standard drink = 0.6 oz pur e alcohol) Comments No Sex and Gender Information Value Date Recorded Sex Assigned at Not on file 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
--- OUTSIDE RECORDS SUMMARY | 2025-01-30 09:54 | XMS_ITS | Encounter Summary ---
Author Organization [facility] Address [address] [place] [address] Care Team Providers Care Water Attendant Name Role Phone Eliseo Leigh MD Primary Care Provider [phone] Encounter Details Date Type Department Care Team (Latest Contact Info) Description 10/25/2005 Outpatient Historical [facility] [address] [place] [address] [facility] [address] [place] [address] Adam Jimenez MD [address] [place] [address] Blepharochalasis (Primary Dx) Social History Tobacco Use Types Packs/Day Years Used Date Smoking Tobacco: Never Assessed Comments Unknown Sex and Gender Information Value Date Recorded Sex Assigned at Not on file 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
--- OUTSIDE RECORDS SUMMARY | 2025-01-30 09:54 | XMS_ITS ---
Author Organization [facility] Address [address] [facility] [address] Care Team Providers Care Kiln Head House Operator Name Role Phone Eliseo Leigh MD Primary Care Provider [phone] Active Problems Problem Noted Date Diagnosed Date Lichen planus 02/10/2024 Status post total replacement of right hip - 09/1401/19/2023 Chronic diastolic CHF (conge stive heart failure), NYHA class 2 06/22/2022 Severe aortic stenosis 06/22/2022 Status post transcatheter ao rtic valve replacement (TAVR) using bioprosthesis 06/22/2022 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
--- OUTSIDE RECORDS SUMMARY | 2025-01-30 09:54 | XMS_ITS | Encounter Summary ---
Author Organization [facility] Address [address] [place] [facility] [place] [address] Care Team Providers Care Parent Educator Name Role Phone Eliseo Leigh MD Primary Care Provider [phone] Encounter Details Date Type Department Care Team (Late st Contact Info) Description 06/30/2007 Outpatient Historical [facility] DEFAULT DEPARTMENT GómezLyndon Melara PA [address] [place] [address] Social History Tobacco Use Types Packs/Day Years Used Date Smoking Tobacco: Never Assessed Comments No Sex and Gender Information Value Date Recorded Sex Assigned at Not on file 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
--- OUTSIDE RECORDS SUMMARY | 2025-01-30 09:55 | XMS_ITS | Encounter Summary ---
Author Organization [facility] Address [address] [place] [address] Care Team Providers Care Technical Services Assistant Name Role Phone Eliseo Leigh MD Primary Care Provider [phone] Encounter Details Date Type Department Care Team (Latest Contact Info) Description 07/28/2006 Outpatient Historical [facility] [place] [place] [address] Eliseo Leigh MD [address] [place] [address] Routine Medical Exam (Primary Dx); Unspecified Chest Pain; Shortness of Breath Social History Tobacco Use Types Packs/Day Years Used Date Smoking Tobacco: Never Assessed Comments Unknown Sex and Gender Information Value Date Recorded Sex Assigned at Not on file 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
--- OUTSIDE RECORDS SUMMARY | 2025-01-30 09:55 | XMS_ITS | Encounter Summary ---
Author Organization [facility] Address [address] [place] [address] Care Team Providers Care Manager Contact Name Role Phone Eliseo Leigh MD Primary Care Provider [phone] Encounter Details Date Type Department Care Team (Late st Contact Info) Description 02/16/2007 Outpatient Historical [facility] Orthopedics- [address] [place] 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
--- OUTSIDE RECORDS SUMMARY | 2025-01-30 09:55 | XMS_ITS | Clinical Summary ---
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 Cement Right: Knee [employer] 05/08/2012 6197-9-0 01 / / [id number] Simplex W/Tobra 6197-9-001 - Sna Implanted:Qty: 2 on 03/01/2011 at [facility] Cement Left: Knee [employer] 09/29/2012 6197-9-0 01 / NA / [id number] Cement Activos W/Judd C10a Implanted:02/2014 by Scott Posadas MD (Quantity not on file) Cement Vertebrae [employer] - SPINAL fka KYPHON 10/07/2016 C10A / / [id number] Description:T12 Kyphoplasty Lens Io Tecnis 1pc 22 [id number] - [id number] Implanted:Qty: 1 on 05/24/2013 by Angel Muse MD at [facility] Left: Eye [employer] 01/23/2017 [id number] 20 / [id number] / Log [id number] - Bard Patches, Pledgets, Jonelle, Fabrics - 1 - [place] Ptfe Thck 1.6mmx2.5x2.5c m [id number] Implanted:Qty: 1 on 12/18/2008 at [facility] Graft CR BARD- JOHNNIE VASC INC 01/07/2013 [id number] / / [id number] Log [id number] - Bard Patches, Pledgets, Jonelle, Fabrics - 2 - [place] Ptfe Thck 1.6mmx2.5x2.5c m [id number] Implanted:Qty: 1 on 12/18/2008 at [facility] Graft CR BARD- JOHNNIE [employer] 07/08/2013 [id number] / / [id number] Log [id number] - Laurie Total Knee - 1 - Insert Tib Trthln X3 Cs 5531-G-411 Implanted:Qty: 1 on 11/16/2010 at [facility] Knee Right: Knee [employer] 08/08/2015 5531-G-4 11 / / [id number] Log [id number] - Laurie Total Knee - 1 - Comp Fem Trthln Cr Sz4 Rt 5510-F-402 Implanted:Qty: 1 on 11/16/2010 at [facility] Knee Right: Knee [employer] 07/09/2015 5510-F-4 02 / / [id number] Log [id number] - Laurie Total Knee - 1 - Patella Trthln Sym X3 5550-G-339 Implanted:Qty: 1 on 11/16/2010 at [facility] Knee Right: Knee [employer]URIE- HOWMEDICA INT INC 08/08/2015 5550-G-3 39 / / [id number] Log [id number] - [place] Total Knee - 1 - Comp Tib Triathlon Cmnt 5520-B-400 Implanted:Qty: 1 on 11/16/2010 at [facility] Knee Right: Knee [employer] 09/08/2015 5520-B-4 00 / / FHUM Comp Tib Triathlon Cmnt 5520-B-400 - Sna Implanted:Qty: 1 on 03/01/2011 at [facility] Knee Left: Knee [employer] 01/30/2016 5520-B-4 00 / NA / GMON Comp Fem Trthln Cr Sz5 Lt 5510-F-501 - Sna Implanted:Qty: 1 on 03/01/2011 at [facility] Knee Left: Knee [employer] 01/29/2015 5510-F-5 01 / NA / SYRCK Patella Trthln Sym Poly 5550-L-339 - Sna Implanted:Qty: 1 on 03/01/2011 at [facility] Knee Left: Knee [employer] 10/31/2015 5550-L-3 39 / NA / [id number] Ins Tib Triathlon Sz4 11mm 5531-P-411 - Sna Implanted:Qty: 1 on 03/01/2011 at [facility] Knee Left: Knee [employer] 09/30/2015 5531-P-4 11 / NA / [id number] Pacemaker [place] Xt Surescan [id number] Pacemaker [employer]- CRM - BULK BUY [id number] 11/21/2019 [id number] / [id number] 3H / Pin Headless Fltd 02/14 [id number] Implanted:Qty: 1 on 11/16/2010 at [facility] Pin [employer] 7650-203 8A / / Description:moved down from [facility] list- Implant Type-TS [id number] - [id number] Implanted:Qty: 1 on 12/18/2008 at [facility] Heart 05/08/2013 LXA25 / [id number] / Description:[employer] Mitro flow Aortic Heart Valve (size 25mm) Procedures Procedure Name Priority Date/Time Associated Diagnosis Comments XR DEXA BONE DENSITY AXIAL 1 OR MORE SITES Routine 09/02/2014 1:04 PM CDT Menopausal disorder ENDOSCOPY, COLON, SCREENING Routine 03/15/2012 9:17 AM CRIMINAL JUSTICE DEPARTMENT CHAIR Screening for colon cancer from Last 3 [...] has mildly worsened in the left hip. Elisoe Leigh MD DIAGNOSTIC IMAGING ORDERABLES Fi nal Result from Last 3 Months or Most Recently Relevant to Health Maintenance Insurance [address] [place] [id number] MEDICARE PART A AND B [facility] RR [address] [place] [id number] RX [employer] RX Member Subscriber Plan / Payer (Ef fective 2015-Present) Name:Jacklyn Schultz Relation to Subscriber:Self Name:Jacklyn Schultz Payer ID:Not on file Group ID:[id number] Type:RX Medicare Part D Address: [place] [facility] [place] Medicare Part B Advance Directives For more information, please contact: [phone] Documents on File Type Date Recorded Patient Compliance Advisor Expl anation Advance Directive Living Will 05/23/2013 [...]
--- OUTSIDE RECORDS SUMMARY | 2025-01-30 09:55 | XMS_ITS | Encounter Summary ---
Author Organization [facility] Address [address] [facility] [place] [address] Care Team Providers Care Wool Grower Name Role Phone Eliseo Leigh MD Primary Care Provider [phone] Encounter Details Date Type Department Care Team (Latest Contact Info) Description 06/24/1998 Outpatient Historical [facility] Tony Pollard MD NO ADDRESS ON FILE Unspecified closed fracture of ankle (Primary Dx) Social History Tobacco Use Types Packs/Day Years Used Date Smoking Tobacco: Never Assessed Comments Unknown Sex and Gender Information Value Date Recorded Sex Assigned at Not on file 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
--- OUTSIDE RECORDS SUMMARY | 2025-01-30 09:55 | XMS_ITS | Encounter Summary ---
Author Organization [facility] Address [address] [place] [address] Care Team Providers Care Making Line Worker Name Role Phone Eliseo Leigh MD Primary Care Provider [phone] Encounter Details Date Type Department Care Team (Latest Contact Info) Description 03/27/1999 Outpatient [facility] [address] [place] [address] Allan Aquino MD [address] [facility] [address] [place] [address] Pain in limb (Primary Dx) Social History Tobacco Use Types Packs/Day Years Used Date Smoking Tobacco: Never Assessed Comments Unknown Sex and Gender Information Value Date Recorded Sex Assigned at Not on file 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
--- OUTSIDE RECORDS SUMMARY | 2025-01-30 09:55 | XMS_ITS | Encounter Summary ---
Author Organization [facility] Address [address] [place] [address] Care Team Providers Care Animal Caretaker Name Role Phone Eliseo Leigh MD Primary Care Provider [phone] Encounter Details Date Type Department Care Team (Latest Contact Info) Description 01/18/2006 Outpatient Historical [facility] Echocardiography - Diagonal [address] [place] [address] X358 Taran Porter MD NO ADDRESS ON FILE Aortic Valve Disorder (Primary Dx); Undiagnosed Cardiac Murmurs Social History Tobacco Use Types Packs/Day Years Used Date Smoking Tobacco: Never Assessed Comments Unknown Sex and Gender Information Value Date Recorded Sex Assigned at Not on file 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
--- OUTSIDE RECORDS SUMMARY | 2025-01-30 09:55 | XMS_ITS | Encounter Summary ---
Author Organization [facility] Address [address] [place] [address] Care Team Providers Care Television News Anchor Name Role Phone Eliseo Leigh MD Primary Care Provider [phone] Encounter Details Date Type Department Care Team (Latest Contact Info) Description 07/28/2006 Outpatient Historical [facility] [place] [address] [place] [address] Eliseo Leigh MD [address] [place] [address] Osteoarth NOS-L/Leg (Primary Dx); Pain in Joint, Lower Leg Social History Tobacco Use Types Packs/Day Years Used Date Smoking Tobacco: Never Assessed Comments Unknown Sex and Gender Information Value Date Recorded Sex Assigned at Not on file 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
--- OUTSIDE RECORDS SUMMARY | 2025-01-30 09:55 | XMS_ITS | Encounter Summary ---
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
--- OUTSIDE RECORDS SUMMARY | 2025-01-30 09:55 | XMS_ITS | Encounter Summary ---
Author Organization [facility] Address [address] [place] [address] Care Team Providers Care Procedure Rn Name Role Phone Eliseo Leigh MD Primary Care Provider [phone] Encounter Details Date Type Department Care Team (Latest Contact Info) Description 05/27/2007 Outpatient Historical HIS CANCELLED ADMISSION Eliseo Leigh MD [address] [facility] [address] [place] [address] Abn Find-Musculoskel Sys Social History Tobacco Use Types Packs/Day Years Used Date Smoking Tobacco: Never Assessed Comments No Sex and Gender Information Value Date Recorded Sex Assigned at Not on file 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
--- OUTSIDE RECORDS SUMMARY | 2025-01-30 09:55 | XMS_ITS | Encounter Summary ---
Author Organization [facility] Address [address] [place] [address] Care Team Providers Care Director Of Category Management Name Role Phone Eliseo Leigh MD Primary Care Provider [phone] Encounter Details Date Type Department Care Team (Late st Contact Info) Description 02/09/2007 Outpatient Historical [facility]oped[facility]- [address] [place] 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
--- OUTSIDE RECORDS SUMMARY | 2025-01-30 09:55 | XMS_ITS | Encounter Summary ---
Author Organization [facility] Address [address] [place] [address] Care Team Providers Care Wrapper Dipper Name Role Phone Eliseo Leigh MD Primary Care Provider [phone] Encounter Details Date Type Department Care Team (Latest Contact Info) Description 09/08/2006 Outpatient Historical [facility] [place] [address] [place] [address] Alaina Tony MD [address] [place] [address] Uterovaginal Prolapse, Unspecified (Primary Dx) Social History Tobacco Use Types Packs/Day Years Used Date Smoking Tobacco: Never Assessed Comments Unknown Sex and Gender Information Value Date Recorded Sex Assigned at Not on file 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
--- OUTSIDE RECORDS SUMMARY | 2025-01-30 09:55 | XMS_ITS | Encounter Summary ---
Author Organization [facility] Address [address] [place] [address] Care Team Providers Care Garbage Pick Up Worker Name Role Phone Eliseo Leigh MD Primary Care Provider [phone] Encounter Details Date Type Department Care Team (Late st Contact Info) Description 02/23/2007 Outpatient Historical [facility]oped[facility]- [address] [place] [address] [place] [address] Tony Pollard MD NO ADDRESS ON FILE Social History Tobacco Use Types Packs/Day Years Used Date Smoking Tobacco: Never Assessed Comments No Sex and Gender Information Value Date Recorded Sex Assigned at Not on file Legal Sex Female 3:08 AM BODY SHOP ESTIMATOR Gender Identity Not on file Sexual Orientation Not on file documented as of this encounter Plan of Treatment Not on file documented as of this encounter Visit Diagnoses Not on filedocumented in this encounter Care Teams Garbage Pick Up Worker Relationship Specialty Start Date End Date Eliseo Leigh MD [address] [phone] PCP - General 04/15/04 11/30/21 documented as of this encounter
--- OUTSIDE RECORDS SUMMARY | 2025-01-30 09:55 | XMS_ITS | Encounter Summary ---
Author Organization [facility] Address [address] [place] [address] Care Team Providers Care Sorority Mother Name Role Phone Eliseo Leigh MD Primary Care Provider Encounter Details Date Type Department Care Team (Late st Contact Info) Description 07/14/2006 Outpatient Historical [facility] [address] [place] [address] Alaina Tony MD [address] [place] [address] Rectocele (Primary Dx) Social History Tobacco Use Types Packs/Day Years Used Date Smoking Tobacco: Never Assessed Comments Unknown Sex and Gender Information Value Date Recorded Sex Assigned at Not on file Legal Sex Female 3:08 AM UNIT CONTROL WORKER Gender Identity Not on file Sexual Orientation Not on file documented as of this encounter Plan of Treatment Not on file documented as of this encounter Visit Diagnoses Diagnosis Rectocele- Primary documented in this encounter Care Teams Sorority Mother Relationship Specialty Start Date End Date Eliseo Leigh MD [address] [place] [address] PCP - General 04/15/04 11/30/21 documented as of this encounter
--- OUTSIDE RECORDS SUMMARY | 2025-01-30 09:55 | XMS_ITS ---
Author Organization [facility] tone Address [address] [address] Care Team Providers Care Respiratory Therapy Aide Name Role Phone Unavailable Primary Care Provider [...]
--- OUTSIDE RECORDS SUMMARY | 2025-01-30 09:55 | XMS_ITS | Encounter Summary ---
Author Organization [facility] Address [address] [place] [address] Care Team Providers Care Product Marketing Director Name Role Phone Eliseo Leigh MD Primary Care Provider Encounter Details Date Type Department Care Team (Late st Contact Info) Description 05/01/2007 Outpatient Historical [facility] [employer] [address] 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
--- OUTSIDE RECORDS SUMMARY | 2025-01-30 09:55 | XMS_ITS | Encounter Summary ---
Author Organization [facility] Address [address] [place] [address] Care Team Providers Care Senior Commissary Agent Name Role Phone Eliseo Leigh MD Primary Care Provider [phone] Encounter Details Date Type Department Care Team (Latest Contact Info) Description 09/08/2006 Outpatient Historical [facility] [address] [place] [address] [place] [address] Alaina Tony MD [address] [address] Pre-Operative Cardiovascular Examination (Primary Dx) Social History Tobacco Use Types Packs/Day Years Used Date Smoking Tobacco: Never Assessed Comments Unknown Sex and Gender Information Value Date Recorded Sex Assigned at Not on file Legal Sex Female 3:08 AM 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
--- OUTSIDE RECORDS SUMMARY | 2025-01-30 09:55 | XMS_ITS | Encounter Summary ---
Author Organization [facility] Address [address] [facility] [address] Care Team Providers Care Incising Machine Operator Name Role Phone Eliseo Leigh MD Primary Care Provider [phone] Encounter Details Date Type Department Care Team (Latest Contact Info) Description 05/06/2006 Outpatient Historical [facility] [place] [address] 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
--- OUTSIDE RECORDS SUMMARY | 2025-01-30 09:55 | XMS_ITS | Encounter Summary ---
Author Organization [facility] Address [address] [place] [address] Care Team Providers Care Manager Department Name Role Phone Eliseo Leigh MD Primary Care Provider [phone] Encounter Details Date Type Department Care Team (Late st Contact Info) Description 03/02/2007 Outpatient Historical [facility] Orthopedics- [address] [place] [address] [place] [address] Tony Pollard MD NO ADDRESS ON FILE Social History Tobacco Use Types Packs/Day Years Used Date Smoking Tobacco: Never Assessed Comments No Sex and Gender Information Value Date Recorded Sex Assigned at Not on file Legal Sex Female 3:08 AM LAUNDRY AID Gender Identity Not on file Sexual Orientation Not on file documented as of this encounter Plan of Treatment Not on file documented as of this encounter Visit Diagnoses Not on filedocumented in this encounter Care Teams Manager Department Relationship Specialty Start Date End Date Eliseo Leigh MD [address] [phone] PCP - General 04/15/04 11/30/21 documented as of this encounter
--- OUTSIDE RECORDS SUMMARY | 2025-01-30 09:55 | XMS_ITS | Encounter Summary ---
Author Organization [facility] Address [address] [facility] [place] [address] Care Team Providers Care Clarity Developer Name Role Phone Eliseo Leigh MD Primary Care Provider [phone] Encounter Details Date Type Department Care Team (Latest Contact Info) Description 09/12/1998 Outpatient Historical [facility] Tony Pollard MD NO ADDRESS ON FILE Unspecified closed fracture of ankle (Primary Dx) Social History Tobacco Use Types Packs/Day Years Used Date Smoking Tobacco: Never Assessed Comments Unknown Sex and Gender Information Value Date Recorded Sex Assigned at Not on file 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
--- OUTSIDE RECORDS SUMMARY | 2025-01-30 09:55 | XMS_ITS | Encounter Summary ---
Author Organization [facility] Address [address] [facility] [address] Care Team Providers Care Ash Pit Worker Name Role Phone Eliseo Leigh MD Primary Care Provider [phone] Encounter Details Date Type Department Care Team (Latest Contact Info) Description 08/01/1998 Outpatient Historical [facility] Tony Pollard MD NO ADDRESS ON FILE Unspecified closed fracture of ankle (Primary Dx) Social History Tobacco Use Types Packs/Day Years Used Date Smoking Tobacco: Never Assessed Comments Unknown Sex and Gender Information Value Date Recorded Sex Assigned at Not on file 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
--- OUTSIDE RECORDS SUMMARY | 2025-01-30 09:55 | XMS_ITS | Clinical Summary ---
Author Organization [facility] Address [address] [address] Care Team Providers Care Magnetic Doctor Name Role Phone Eliseo Leigh MD [...] morning. Active cholecalciferol (VITAMIN D-3) 1.25 MG (22328 UT) capsule Take 50,000 Units by mouth [...] Inc [address] [place] [address] Celina Moreno MA 12/27/2024 2:00 PM FABRICATOR SPECIAL ITEMS Office Visit [facility] [address] [place], [place] [address] Gale Brown CNP Chronic kidney disease stage 3B (HCC) (Primary Dx); Chronic diastolic heart failure (HCC); Essential hypertension; Paroxysmal atrial fibrillation (HCC); History of cerebrovascular accident 12/27/2024 Documentation Only [facility] [address] [place] [address] Celia Rudd from Last 3 Months Immunizations [...] Comments Blood Pressure 118/74 12/27/2024 2:23 PM FABRICATOR SPECIAL ITEMS Pulse 86 12/27/2024 2:23 PM FABRICATOR SPECIAL ITEMS Temperature - - Respiratory Rate - - Oxygen Saturation 96% 12/27/2024 2:23 PM FABRICATOR SPECIAL ITEMS Inhaled Oxygen Concentration - - Weight 59.9 kg (132 lb) 12/27/2024 2:23 PM FABRICATOR SPECIAL ITEMS Height 160 cm (5' 3 ) 12/27/2024 2:23 PM FABRICATOR SPECIAL ITEMS Body Mass Index 23.38 12/27/2024 2:23 PM FABRICATOR SPECIAL ITEMS Plan of Treatment Upcoming Encounters Date Type Department Care Team (Late st Contact Info) Description 05/02/2025 11:30 AM CDT Office Visit [facility] [address] [place] [address] Ellen Vela NP [address] [facility] [address] [place] [address] Health Maintenance Due Date Last [...] (EXTERNAL LAB ENTRY) Routine 12/21/2024 12:24 PM FABRICATOR SPECIAL ITEMS COMPREHENSIVE METABOLIC PANEL (CMP) (EXTERNAL LAB ENTRY) Routine 12/21/2024 12:24 PM FABRICATOR SPECIAL ITEMS from Last 3 Months Results * Comprehensive Metabolic Panel (CMP) (12/21/2024 12:24 PM FABRICATOR SPECIAL ITEMS) Glucose 114 mg/dL BUN 17 mg/dL Creatinine 1.41 mg/dL Sodium 140 mEq/L Potassium 3.9 mEq/L Chloride 105 Carbon Dioxide 27 mmol/L Calcium 8.8 mg/dL Albumin (Blood) 3.6 g/dL AST (SGOT) 20 U/L ALT (SGPT) 14 U/L Alkaline Phosphatase 95 U/L Total Bilirubin 0.50 MG/DL eGFR Non-Afr Japanese 36 Total Protein, Serum 6.1 Globulin, Total 2.5 g/dL A/G Ratio 1.4 Blood 12/21/2024 12:2 4 PM FABRICATOR SPECIAL ITEMS [facility] External Provider LAB BLOOD ORDERABLES Final Result * CBC (Includes Diff/Plt) (External Lab) (12/21/2024 12:24 PM FABRICATOR SPECIAL ITEMS) WBC 6.6 K/uL Red Blood Cell Count 4.39 Hemoglobin 12.8 g/dL Hematocrit 39 % MCV 88.8 MCH 29.2 MCHC 32.8 RDW 17.5 Platelet Count 198 MPV 10.2 Absolute Neutrophils 3,828 Absolute Lymphocytes 1,762 Absolute Monocytes 884 Absolute Eosinophils 92 Absolute Basophils 33 Neutrophils 58 K/uL Lymphocytes 26.7 Monocytes 13.4 Eosinophils 1.4 Basophils 0.5 Blood 12/21/2024 12:2 4 PM FABRICATOR SPECIAL ITEMS [facility] External Provider LAB BLOOD ORDERABLES Final Result from Last 3 Months Insurance Medicare [facility] Care Teams Magnetic Doctor Relationship Specialty Start Date End Date Eliseo Leigh MD [address] [phone] PCP - General Family Medicine 05/24/24
--- OUTSIDE RECORDS SUMMARY | 2025-01-30 09:55 | XMS_ITS | Encounter Summary ---
Author Organization [facility] Address [address] [facility] [place] [address] Care Team Providers Care Materials Management Manager Name Role Phone Eliseo Leigh MD Primary Care Provider [phone] Encounter Details Date Type Department Care Team (Latest Contact Info) Description 11/10/1998 Outpatient Historical [facility] Dermatology- [facility] [address] [place] [address] Mckay Evangelista MD NO ADDRESS ON FILE Actinic keratosis (Primary Dx); Dermatophytosis of nail; Other seborrheic keratosis Social History Tobacco Use Types Packs/Day Years Used Date Smoking Tobacco: Never Assessed Comments Unknown Sex and Gender Information Value Date Recorded Sex Assigned at Not on file 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
--- OUTSIDE RECORDS SUMMARY | 2025-01-30 09:55 | XMS_ITS | Encounter Summary ---
Author Organization [facility] Address [address] [place] [address] Care Team Providers Care Dental Scheduler Name Role Phone Eliseo Leigh MD Primary Care Provider [phone] Encounter Details Date Type Department Care Team (Latest Contact Info) Description 04/06/2006 Outpatient Historical [facility] [place] [place] [address] Eliseo Leigh MD [address] [place] [address] Plantar Fibromatosis (Primary Dx); Unspecified Essential Hypertension; Fluid Overload; Other and Unspecified Hyperlipidemia Social History Tobacco Use Types Packs/Day Years Used Date Smoking Tobacco: Never Assessed Comments Unknown Sex and Gender Information Value Date Recorded Sex Assigned at Not on file 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
--- OUTSIDE RECORDS SUMMARY | 2025-01-30 09:55 | XMS_ITS | Encounter Summary ---
Author Organization [facility] Address [address] [place] [address] Care Team Providers Care Assistant Boiler Operator Name Role Phone Eliseo Leigh MD Primary Care Provider Encounter Details Date Type Department Care Team (Late st Contact Info) Description 02/16/2007 Outpatient Historical [facility] [place] [place] [address] Eliseo Leigh MD [address] [place] [address] Social History Tobacco Use Types Packs/Day Years Used Date Smoking Tobacco: Never Assessed Comments No Sex and Gender Information Value Date Recorded Sex Assigned at Not on file 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
--- OUTSIDE RECORDS SUMMARY | 2025-01-30 09:55 | XMS_ITS | Encounter Summary ---
Author Organization [facility] Address [address] [facility] [place] [address] Care Team Providers Care Supervisor Costuming Name Role Phone Eliseo Leigh MD Primary Care Provider [phone] Encounter Details Date Type Department Care Team (Latest Contact Info) Description 04/24/1997 Outpatient Historical [facility] Derm[facility]ology- [facility] [address] [place] [address] Mckay Evangelista MD NO ADDRESS ON FILE Malig beverly skin arm (Primary Dx); Other seborrheic keratosis; Dermatophytosis of foot Social History Tobacco Use Types Packs/Day Years Used Date Smoking Tobacco: Never Assessed Comments Unknown Sex and Gender Information Value Date Recorded Sex Assigned at Not on file Legal Sex Female 3:08 AM DIRECTOR REGULATORY COMPLIANCE Gender Identity Not on file Sexual Orientation Not on file documented as of this encounter Plan of Treatment Not on file documented as of this encounter Visit Diagnoses Diagnosis Malig beverly skin arm- Primary 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
--- OUTSIDE RECORDS SUMMARY | 2025-01-30 09:55 | XMS_ITS | Encounter Summary ---
Author Organization [facility] Address [address] [place] [address] Care Team Providers Care Case Therapist Name Role Phone Eliseo Leigh MD Primary Care Provider [phone] Reason for Referral * Radiology Services (Routine) - Closed Specialty Diagnoses / Procedures Referred By Contac t Referred To Contact Radiology Diagnoses Breast cancer screening by mammogram Procedures MAMMO SCRN BILAT 3D OLEG W OR WO CAD CHG SCREENING MAMMOGRAPHY BI 2-VIEW BREAST INC CAD CHG SCREENING DIGITAL BREAST TOMOSYNTHESIS BI Eliseo Leigh MD [address] [facility] [address] [place] [address] Phone: tel: fax: [facility] [address] [facility] [address] [place] [address] Phone: tel: fax: Referral ID Status Reason Start Date Expiration Date Visits Re quested Visits Authorized [id number] Closed 03/18/2020 04/18/2021 1 1 FRAMER Encounter Details Date Type Department Care Team (Latest Contact Info) Description 03/18/2020 Ancillary Orders [facility] Pre-Registration [place] CALL TO MAKE APPOINTMENT ONLY [address] [place] [address] Eliseo Leigh MD [address] [address] Breast cancer screening by mammogram Social History Tobacco Use Types Packs/Day Years Used Date Smoking Tobacco: Never Smokeless Tobacco: Never Alcohol Use Standard Drinks/Week Comments No 0 (1 standard drink = 0.6 oz pur e alcohol) Comments No Sex and Gender Information Value Date Recorded Sex Assigned at Not on file Legal Sex Female 3:08 AM POST FRAMER Gender Identity Not on file Sexual Orientation [...] COVID-19? No / Unsure 02/26/2020 1:36 PM POST FRAMER documented as of this encounter Plan of [...] mammogram documented in this encounter Care Teams Case Therapist Relationship Specialty Start Date End Date Eliseo Leigh MD [address] [address] PCP - General 04/15/04 11/30/21 documented as of this encounter
--- OUTSIDE RECORDS SUMMARY | 2025-01-30 09:55 | XMS_ITS | Encounter Summary ---
Author Organization [facility] Address [address] [place] [address] Care Team Providers Care Sea Air Land Officer Name Role Phone Eliseo Leigh MD Primary Care Provider [phone] Encounter Details Date Type Department Care Team (Late st Contact Info) Description 02/02/2007 Outpatient Historical [facility] Orthopedics- [address] [place] [address] Tony Pollard MD NO ADDRESS ON FILE Social History Tobacco Use Types Packs/Day Years Used Date Smoking Tobacco: Never Assessed Comments Unknown Sex and Gender Information Value Date Recorded Sex Assigned at Not on file Legal Sex Female 3:08 AM AGRICULTURE CONSULTANT Gender Identity Not on file Sexual Orientation Not on file documented as of this encounter Plan of Treatment Not on file documented as of this encounter Visit Diagnoses Not on filedocumented in this encounter Care Teams Sea Air Land Officer Relationship Specialty Start Date End Date Eliseo Leigh MD [address] [phone] PCP - General 04/15/04 11/30/21 documented as of this encounter
--- OUTSIDE RECORDS SUMMARY | 2025-01-30 09:55 | XMS_ITS | Encounter Summary ---
Author Organization [facility] Address [address] [place] [address] Care Team Providers Care Consultant Name Role Phone Eliseo Leigh MD Primary Care Provider [phone] Encounter Details Date Type Department Care Team (Latest Contact Info) Description 08/03/2006 Outpatient Historical [facility] Cardiology Ancillary Services[place] [address] [place] [address] Yovani Varela MD NO ADDRESS ON FILE Shortness of Breath (Primary Dx); Unspecified Chest Pain Social History Tobacco Use Types Packs/Day Years Used Date Smoking Tobacco: Never Assessed Comments Unknown Sex and Gender Information Value Date Recorded Sex Assigned at Not on file 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
--- OUTSIDE RECORDS SUMMARY | 2025-01-30 09:55 | XMS_ITS | Encounter Summary ---
Author Organization [facility] Address [address] [place] [address] Care Team Providers Care Columnist/Commentator Name Role Phone Eliseo Leigh MD Primary Care Provider [phone] Encounter Details Date Type Department Care Team (Late st Contact Info) Description 11/03/2006 Outpatient Historical [facility]-[place] [address] [place] [address] Alaina Tony MD [address] [place] [address] Follow-Up Examination, Following Unspecified Surgery (Primary Dx); Decreased Libido Social History Tobacco Use Types Packs/Day Years Used Date Smoking Tobacco: Never Assessed Comments Unknown Sex and Gender Information Value Date Recorded Sex Assigned at Not on file Legal Sex Female 3:08 AM CONSTRUCTION DIRECTOR Gender Identity Not on file Sexual Orientation Not on file documented as of this encounter Plan of Treatment Not on file documented as of this encounter Visit Diagnoses Diagnosis Follow-up examination, following unspecified surgery- Primary Decreased libido documented in this encounter Care Teams Columnist/Commentator Relationship Specialty Start Date End Date Eliseo Leigh MD [address] [place] [address] PCP - General 04/15/04 11/30/21 documented as of this encounter
--- OUTSIDE RECORDS SUMMARY | 2025-01-30 09:55 | XMS_ITS | Encounter Summary ---
Author Organization [facility] Address [address] [place] [address] Care Team Providers Care Publicity Consultant Name Role Phone Eliseo Leigh MD Primary Care Provider [phone] Encounter Details Date Type Department Care Team (Latest Contact Info) Description 05/06/2006 Outpatient Historical [facility] [place] [address] 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
--- OUTSIDE RECORDS SUMMARY | 2025-01-30 09:55 | XMS_ITS | Encounter Summary ---
Author Organization [facility] Address [address] [place] [address] Care Team Providers Care Patrol Man Name Role Phone Eliseo Leigh MD Primary Care Provider [phone] Encounter Details Date Type Department Care Team (Latest Contact Info) Description 06/24/2006 Outpatient Historical 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
[2025-01-30 10:00] LABS: ABG PCO2 34.3 mmHg (35-45); ABG PH Result 7.49 (7.35-7.45); Alveolar-Arterial Oxygen Gradi 5.1 mmHg (5-10); Arterial Blood Gas Hematocrit 37.6 % (37-47); Blood Gas Allen Test Pos; Blood Gas LPM 4.5 %; Blood Gas Operator Identificat WALCI; Blood Gas Sample Site Radial, right; Blood Gas Sample Type Arterial; Carboxyhemoglobin 0.7 %THgb (0.4-20.1); Glucose Level-ABG 113.0 mg/dL (70-115); HCO3 ABG 26.3 mmol/L (22-26); Ionized Calcium Level - ABG 1.2 mmol/L (1.1-1.4); Methemoglobin 1.2 % (0.4-1.5); Oxygen Saturation ABG 94.6; PO2 ABG 68.1 mmHg (80.0-100.0); Potassium Level - ABG 4.4 mmol/L (3.5-5.0); Sodium Level - ABG 137.0 mmol/L (131-143)
[2025-01-30 10:26] LABS: Hematocrit 36.4 % (36-47); Hemoglobin 11.90 g/dL (11.27-16.99); Mean Corpuscular HGB Conc 32.7 g/dL (30-55); Mean Corpuscular Hemoglobin 28.7 pg (27-33); Mean Corpuscular Volume 87.9 fl (85-98); Nucleated Red Blood Cells % 0 %; Platelet Count 278 10^3/cmm (157-399); Red Blood Count 4.14 10^6/uL (3.85-5.65); White Blood Count 7.35 10^3/uL (3.29-11.43)
[2025-01-30 10:46] LABS: Troponin(5th) Baseline 29 ng/L (0-10)
--- NOTE | 2025-01-30 10:49 | ECG_ITS ---
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: : 1940 Requested By: Terrie Jean-Baptiste Order Number: [id number] Reading MD: EVELYN COVARRUBIAS Measurements Intervals [place] Rate: 102 P: 6 CA: 168 QRS: -20 QRSD: 133 T: 37 QT: 381 QTc: 498 Interpretive Statements SINUS TACHYCARDIA WITH OCCASIONAL SUPRAVENTRICULAR PREMATURE COMPLEXES RIGHT BUNDLE BRANCH BLOCK [120+ ms QRS DURATION, UPRIGHT V1, 40+ ms S IN I/aVL/V4/V5/V6] POSSIBLE ANTEROSEPTAL MYOCARDIAL INFARCTION , PROBABLY OLD [30 ms Q WAVE IN V1-V4] Compared to ECG 01/30/2025 09:53:48 No significant changes Electronically Signed On 01-30-2025 20:34:42 SUPERVISOR FILM PROCESSING by EVELYN COVARRUBIAS [email or web address] [id number]
[2025-01-30 10:51] LABS: Lactic Sepsis W/Reflex 2.2 mmol/L (0.5-2.2)
[2025-01-30 10:59] LABS: NT Pro B Type Natriuretic Pept 2020 pg/mL (0-450); Procalcitonin 0.18 ng/mL (0-0.5)
[2025-01-30 11:04] LABS: Respiratory Syncytial Virus Ce NEGATIVE (Negative); SARS-CoV-2 PCR NEGATIVE (Negative)
[2025-01-30 11:10] LABS: Alanine Aminotransferase 14 U/L (0-33); Albumin Level 2.9 g/dL (3.5-5.2); Alkaline Phosphatase 105 U/L (35-105); Anion Gap 16.7 (5-19); Aspartate Amino Transferase 32 U/L (0-32); Blood Urea Nitrogen 29 mg/dL (8-23); Calcium 8.9 mg/dL (8.5-10.5); Carbon Dioxide 24 mmol/L (22-29); Chloride 102 mmol/L (98-107); Globulin 2.6 g/dL (1.3-4.6); Glucose 117 mg/dL (65-115); Osmolality Calculated 293 mOsm/kg (285-295); Potassium 4.7 mmol/L (3.5-5.1); Sodium 138 mmol/L (136-145); Total Protein 5.5 g/dL (6.6-8.7)
[2025-01-30 12:00] LABS: Reflex Lactate Order REFLEX LACTIC ORDERD
--- NOTE | 2025-01-30 13:03 | PC.RESP ---
attempted to do home o2 evaluation on pt. pt immediately desatted to 88% on room air prior to ambulation. placed on 2L nc, spo2 increased to 92%. pt stood up to ambulate. pt was wobbly and just stood in one place to catch her balance. almost instantly, pt spo2 started decreasing. within approx 1 min, spo2 decreased to 80% on 6L nc. pt requested to sit down due to sob and weakness. home o2 evaluation stopped at this time. pt spo2 increased to 92% on 6L nc while laying in bed. dr. stevenson notified.
[2025-01-30] MEDS: alum-mag-hydroxide-sime 30 mL UDC 15 ML PO ×2 (14:03→19:21)
[2025-01-30] MEDS: pantoprazole 40 mg SDV IVP (14:13)
[2025-01-30] MEDS: heparin 5,000 unit/mL INJ 1 mL 5000 UNIT SUBCUT (14:13)
[2025-01-30] MEDS: levofloxacin-dextrose 5 % 750 MG/150 ML PREMIX 100 MG IV (14:13)
[2025-01-30 14:19] LABS: Lactic Sepsis W/Reflex 2.1 mmol/L (0.5-2.2)
[2025-01-30 14:20] LABS: CRP High Sensitivity Cardiac 7.320 mg/dL (0.0-0.3)
--- NOTE | 2025-01-30 15:02 | PC.PHAR ---
Patient has only took medications stated on this date. Other medications patient has not started back taking. Patient started a TB Screening on 01/29/25 .
[2025-01-30 15:42] LABS: Reflex Lactate Order REFLEX LACTIC ORDERD
--- NOTE | 2025-01-30 15:49 | ECG_ITS ---
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1940 Requested By: Terrie Jean-Baptiste Order Number: [id number] Daphney MD: EVELYN COVARRUBIAS Measurements Intervals [place] Rate: 107 P: 32 HI: 179 QRS: -25 QRSD: 138 T: 34 QT: 359 QTc: 481 Interpretive Statements ELECTRONIC ATRIAL PACEMAKER RIGHT BUNDLE BRANCH BLOCK [120+ ms QRS DURATION, UPRIGHT V1, 40+ ms S IN I/aVL/V4/V5/V6] POSSIBLE SEPTAL MYOCARDIAL INFARCTION , PROBABLY OLD [30 ms Q WAVE IN V1/V2] Compared to ECG 01/30/2025 11:14:30 Sinus tachycardia no longer present Myocardial infarct finding still present Electronically Signed On 01-30-2025 20:33:28 PRINCIPAL INVESTIGATOR by EVELYN COVARRUBIAS [email or web address]
[2025-01-30 16:01] LABS: Troponin 5 6HR 26.70 ng/L (0-10)
[2025-01-30 16:02] LABS: Troponin 5 6HR Delta -2.30 ng/L (0-12)
[2025-01-30 16:37] LABS: Lactic Acid level (Lactate) 2.3 mmol/L (0.5-2.2)
--- NOTE | 2025-01-30 16:41 | PM.HP ---
Providers/Chief Complaint Admitting Physician: Amanda Hylton MD Primary Care Provider: Fredrick Aldridge MD Chief Complaint: SOB History of Present Illness As per the previous retrospective notes and patient Jacklyn Schultz is a 84 year old female w/ pmhx of HTN, hypothyroidism, GERD, polyarthralgia, and pacemaker presents to the ED with c/o SOB. Patient was recently discharged as a case of community-acquired pneumonia/severe pneumonia to senior living. At the senior living the patient was feeling anxious and requested for Xanax however was not getting better. Her mobility was also causing shortness of breath. she did not report chest pain or pressure and no increase or worsening SOB. Therefore since she needs more assistance at senior living and oxygen therapy, she was sent back to ER. the patient also was not contented with the management at the senior living and preferred to leave. no recent fevers or any lower leg swellings dizziness or syncope or presyncope. No history of abdominal pain or nausea or vomiting. she has been having intermitten diarrhea from a month or so due to her anxiety likely IBS?. Rest of the review of system is unremarkable Review of Systems General: Reports: 10 or more systems reviewed and unremarkable except in HPI and below Medications/Allergies Home Medications ?Medication ?Instructions ?Recorded ?Confirmed ?Last Taken ?Type amlodipine 5 mg tablet 5 mg PO QPM 06/09/24 01/30/25 12/07/24 History cyanocobalamin (vitamin B-12) 1,000 mcg IM Q30D 06/09/24 01/30/25 Unknown History 1,000 mcg/mL injection solution famotidine 40 mg tablet 40 mg PO DAILY PRN upset stomach 06/09/24 01/30/25 12/03/24 History isosorbide mononitrate 30 mg 30 mg PO QAM 06/09/24 01/30/25 01/30/25 08:20 History tablet,extended release 24 hr levothyroxine 125 mcg tablet 125 mcg PO QAM 06/09/24 01/30/25 01/25/25 History propafenone 150 mg tablet 150 mg PO Q8H 06/09/24 01/30/25 01/30/25 08:20 History sertraline 25 mg tablet 25 mg PO DAILY 06/09/24 01/30/25 01/30/25 08:20 History tizanidine 4 mg tablet 2 mg (1/2 x 4 mg) PO Q6H PRN 12/08/24 01/30/25 Unknown Rx muscle spasticity #20 tabs leflunomide 20 mg tablet 20 mg PO DAILY #90 tabs 12/13/24 01/30/25 Unknown Rx pilocarpine HCl 5 mg tablet 5 mg PO TID #90 tabs 12/13/24 01/30/25 01/30/25 08:20 Rx triamcinolone acetonide 0.1 % 1 applic topical BID PRN itching 12/19/24 01/30/25 Unknown Rx topical cream #30 grams gabapentin 300 mg capsule 300 mg PO BEDTIME 01/25/25 01/30/25 Unknown History permethrin 5 % topical cream See Rx Instructions .Route .COMPLEX 01/25/25 01/30/25 Unknown History albuterol sulfate 0.63 mg/3 mL 0.63 mg (3 mL) inhalation Q8H PRN 01/29/25 01/30/25 Unknown Rx solution for nebulization shortness of breath or wheezing #75 mL alprazolam 0.25 mg tablet 0.25 mg PO BID PRN anxiety 10 days 01/29/25 01/30/25 01/30/25 08:20 Rx #20 tabs dextromethorphan-guaifenesin 10 1 tab-cap PO Q8H PRN cough 10 days 01/29/25 01/30/25 Unknown Rx mg-200 mg capsule (Robitussin #30 caps Cough-Chest Congestion DM) hydrocodone 5 mg-acetaminophen 325 1 tab PO DAILY PRN pain #10 tabs 01/29/25 01/30/25 Unknown Rx mg tablet levofloxacin 750 mg tablet 750 mg PO DAILY 7 days #7 tabs 01/29/25 01/30/25 01/30/25 06:35 Rx nebulizer accessories #1 ea 01/29/25 01/30/25 Unknown Rx prednisone 20 mg tablet 40 mg (2 x 20 mg) PO Q24H 4 days 01/29/25 01/30/25 01/30/25 06:35 Rx #8 tabs white petrolatum 41 % topical 1 applic topical DAILY PRN dry 01/29/25 01/30/25 Unknown Rx ointment (Aquaphor Healing) skin 60 days #20 grams Allergies Allergy/AdvReac Type Severity Reaction Status Date / Time LAURENT Inhibitors Allergy Unknown Unkown Verified 01/25/25 11:03 ezetimibe Allergy Unknown Unknown Verified 01/25/25 11:03 codeine Allergy ADR-Headach Verified 01/25/25 11:03 e COVID-19 vaccine, Allergy hives Verified 01/25/25 11:03 recombinant (Nova (From Novavax COVID19 Vac,Adj(Unapp)) Tvajkkj-WJI-HmI Reductase Allergy ADV-Weaknes Verified 01/25/25 11:03 Inhibitor (Mfjphlq-Cec-Njw s Reductase Inhibitor) vaccine adjuvant system, Allergy hives Verified 01/25/25 11:03 ISCOM-Matrix (From Novavax COVID19 Vac,Adj(Unapp)) PFSH Acute PFSH: Medical History (Updated 01/30/25 @ 18:22 by Amanda Hylton MD) Chronic pruritus Immunization counseling High risk medication use Osteoarthritis, generalized Polyarthralgia Osteoporosis Traumatic compression fracture of eleventh thoracic vertebra History of CVA (cerebrovascular accident) GERD (gastroesophageal reflux disease) Hypothyroidism Hypertension Pacemaker Surgical History History of hip replacement rt Aortic valve replaced H/O eye surgery Hx of cataract surgery Hx of tonsillectomy S/P cholecystectomy History of open heart surgery H/O: hysterectomy H/O vaginal surgery History of knee replacement History of ankle surgery Family History Mother Stroke Social History Smoking and tobacco/nicotine status: never used tobacco/nicotine Second hand smoke exposure: No Alcohol intake: current Alcohol intake frequency: holidays/special occasions only Substance/Drug Use: never Female Reproductive History: Para: 2 Spontaneous abortions: No Vitals/I&O/Wt Last Vital Signs Temp 97.9 F 01/30/25 15:47 Pulse 98 01/30/25 15:47 Resp 16 01/30/25 15:47 BP 148/90 01/30/25 15:47 Pulse Ox 91 01/30/25 16:26 O2 Del Method Nasal Cannula 01/30/25 16:26 O2 Flow Rate 4 01/30/25 16:26 01/30/25 01/30/25 01/30/25 06:59 14:59 22:59 Intake Total 150 / 150 Balance 150 / 150 Weight last 48 hrs Weight 62.686 kg Weight 65.771 kg Physical Exam Narrative: General: Alert and oriented, lying comfortably without any distress, on 3L NC/min nasal cannula oxygen supplementation HEENT: Normocephalic, atraumatic, grossly unremarkable exam Cardio: Sinus tachycardia,, normal S1-S2 without any murmurs, rubs, or gallops and JVD normal Respiratory: Bilateral equal air entry with coarse crepitations on the right lower middle zone to lower zone and left zone is getting better, better, no wheezes, patient able to speak in full sentences GI: Abdomen soft, nontender, nondistended, normoactive bowel sounds present all 4 quadrants, Neuro: intact cranial nerves motor and sensory and cerebellar/coordination function without any focal neurological deficit Behavior: Appropriate and cooperative Extremities: Adequate palpable pulses, mild trace edema Data 01/30/25 09:57 01/30/25 09:57 Micro: Microbiology 01/30/25 10:29 Blood Culture - Preliminary Blood SPECIMEN COLLECTED 01/30/25 10:21 Blood Culture - Preliminary Blood SPECIMEN COLLECTED A&P Assessment and plan 1. Acute hypoxemic respiratory failure: Patient presented with acute hypoxemic respiratory failure which the patient was having at baseline. she is sent from senior living and as per the patient, since there were concerns of further management and oxygen therapy was not enough for her as she needs assistance in moving The patient did not feel well and was having anxiety at the senior living which could be also related to the fact that her is still admitted in the hospital. And due to her anxiety the patient was also getting short of breath Resume her home antibiotic course with levofloxacin IV daily for another 3 to 4 days Continue steroid prednisone 40 mg for 3 to 4 days Chest physiotherapy Monitor pulse ox and hemodynamics 2. Community acquired bacterial pneumonia: As mentioned above 3. Lumbar disc disease with radiculopathy: Adequate analgesia to continue Monitor for any pain 4. 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 no wbcs or recent abx use, non infectious in nature imodium as needed monitor hemodynamics and stool output 5. Hypothyroidism: Continue home dose of levothyroxine 125 mcg daily 6. Hypertension: Resume home medication after reconciliation, amlodipine 5 mg daily 7. GERD (gastroesophageal reflux disease): Continue PPI daily 8. History of aortic valve replacement: - Patient had history of aortic valve replacement twice, currently not on any anticoagulation - I reviewed patient chart and I could not see any aspirin or anticoagulation, the patient did not mention about any history of GI bleed or significant anemia? -Monitor CBC and continue follow-up with the cardiology at the time of discharge - Patient reported that she had atrial fibrillation in the past but is not on anticoagulation, continue home medications 9. Chronic pruritus: Multiple pruritic lesions on the back has been seen with some healing scabs, currently stable the lesions do not itch and does not seem to be of scabies? Patient following with the rheumatology and on low-dose steroids To continue to follow post discharge with the drywall taper 10. Dry mouth: Patient on pilocarpine tablet that helps with her dry mouth 11. Depression with anxiety: Continue home dose of sertraline 25 oral daily and alprazolam 0.25 mg twice daily 12. Pacemaker: Currently stable, PDMP PDMP Reviewed: Not Reviewed Attestations Medical Necessity Statement*: The patient will stay more than 2 midnights for the management of her acute hypoxemic respiratory failure, anxiety and optimization of further comorbidities condition Coding Level of Care Code Acute Code for [facility] Fwd Diagnoses Acute hypoxemic respiratory failure J96.01 Community acquired bacterial pneumonia J15.9 Lumbar disc disease with radiculopathy M51.16 Diarrhea R19.7 Hypothyroidism E03.9 Hypertension I10 GERD (gastroesophageal reflux disease) K21.9 History of aortic valve replacement Z95.2 Chronic pruritus L29.9 Dry mouth R68.2 Depression with anxiety F41.8 Pacemaker Z95.0
--- NOTE | 2025-01-30 18:39 | USCV_ITS ---
Jacklyn Schultz Age: 84 Gender: F : 1940 Exam Date: 01/30/2025 21:33 Ordering Phys: Amanda Hylton MD Technologist: VAM[employer] Exam Location: [facility] [place] Indication: shortness of breath, recent pneumonia, History of HTN, pacer. BP: 147 / 100 HR: 87 Rhythm: Paced rhythm Technical Quality: Adequate MEASUREMENTS (Male / Female) Normal Values 2D ECHO LV Diastolic Diameter PLAX 3.4 cm 4.2 - 5.9 / 3.9 - 5.3 cm IVS Diastolic Thickness 1.1 cm 0.6 - 1.0 / 0.6 - 0.9 cm IVS Systolic Thickness 1.1 cm LVPW Diastolic Thickness 1.5 cm 0.6 - 1.0 / 0.6 - 0.9 cm LVPW Systolic Thickness 1.6 cm LVOT Diameter 2.0 cm LV Ejection Fraction 2D Teich 54.0 % LV Ejection Fraction MOD 4C 54.9 % LV Ejection Fraction MOD 2C 50.8 % LV Ejection Fraction 2C AL 51.9 % LA Diameter 4.3 cm Aorta at Sinotubular Diameter 2.4 cm IVC Diameter 1.6 cm M-MODE LA Ao Ratio MM 1.8 AV Cusp Separation MM 1.4 cm DOPPLER AV Peak Velocity 109.0 cm/s LVOT Peak Velocity 74.0 cm/s AV Area Cont Eq vti 1.9 cm squared AV Area Cont Eq pk 2.2 cm squared MV Peak Velocity 228.0 cm/s MV Area PHT 1.7 cm squared Mitral E to A Ratio 0.4 TV Peak E Velocity 61.0 cm/s PV Peak Velocity 80.0 cm/s FINDINGS Left Ventricle Normal left ventricular size and systolic function, EF of 55- 60%. No regional wall motion abnormalities. Grade 1 diastolic dysfunction Right Ventricle Normal in size and function Right Atrium Normal in size Left Atrium Severely dilated IA Septum Grossly normal Mitral Valve Mild mitral annular calcification. Mild mitral regurgitation. Mild mitral stenosis with mean gradient across mitral valve is 5.3mmHg. Aortic Valve Bioprosthetic aortic valve is seen. No significant stenosis. Tricuspid Valve Insufficient TR jet to calculate RVSP Pulmonic Valve Not well visualized Pericardium Normal Aorta Normal in size IVC Appears to be normal CONCLUSIONS LV systolic function is normal with EF of 55-60% Grade 1 diastolic dysfunction Left atrial dilation Mild mitral regurgitation. Mild mitral stenosis Normally functioning bioprosthetic aortic valve No comparison studies are available. Juan J Bhandari MD (Electronically Signed) Final Date: 31 January 2025 13:28 S
[2025-01-30] MEDS: FUROsemide 10 mg/mL SDV 4mL 40 MG IVP (19:22)
[2025-01-30] MEDS: blistex lip oint 7 gm Tube 1 APPLIC TOPICAL (20:58)
[2025-01-31] VITALS (9 sets, daily range): BP systolic 122–162; BP diastolic 69–97; PULSE 73–115; RESP 16–19; TEMP 36.3–36.7; O2SAT 90–95
[2025-01-31] MEDS: pantoprazole 40 mg SDV IVP ×2 (00:56→14:08)
[2025-01-31] MEDS: heparin 5,000 unit/mL INJ 1 mL 5000 UNIT SUBCUT ×2 (01:04→14:08)
[2025-01-31] MEDS: alum-mag-hydroxide-sime 30 mL UDC 15 ML PO ×3 (01:10→14:08)
[2025-01-31 05:33] LABS: Hematocrit 35.4 % (36-47); Hemoglobin 11.30 g/dL (11.27-16.99); Mean Corpuscular HGB Conc 31.9 g/dL (30-55); Mean Corpuscular Hemoglobin 28.9 pg (27-33); Mean Corpuscular Volume 90.5 fl (85-98); Nucleated Red Blood Cells % 0 %; Platelet Count 245 10^3/cmm (157-399); Red Blood Count 3.91 10^6/uL (3.85-5.65); White Blood Count 6.93 10^3/uL (3.29-11.43)
[2025-01-31 06:01] LABS: Alanine Aminotransferase 15 U/L (0-33); Albumin Level 2.6 g/dL (3.5-5.2); Alkaline Phosphatase 95 U/L (35-105); Anion Gap 12.0 (5-19); Aspartate Amino Transferase 28 U/L (0-32); Blood Urea Nitrogen 25 mg/dL (8-23); Calcium 8.3 mg/dL (8.5-10.5); Carbon Dioxide 29 mmol/L (22-29); Chloride 100 mmol/L (98-107); Globulin 2.7 g/dL (1.3-4.6); Glucose 148 mg/dL (65-115); Magnesium 2.2 mg/dL (1.7-2.3); Osmolality Calculated 291 mOsm/kg (285-295); Potassium 4.0 mmol/L (3.5-5.1); Sodium 137 mmol/L (136-145); Total Protein 5.3 g/dL (6.6-8.7)
[2025-01-31 10:01] LABS: Lactate (Lactic Acid level) 2.9 mmol/L (0.5-2.2)
--- NOTE | 2025-01-31 15:36 | P.PN_ITS ---
Subjective 2 Subjective: Patient seen in the morning, currently doing well. Did not voice any concerns On and off get anxious which is related to her stress secondary to her who is also sick and admitted in the hospital with comfort measures Patient has been supported well through her anxiety and to continue to support her during her stay Also to work on her mobility oxygenation with further case manager specialist to be taken on board for placement to a different skilled nursing since her previous experience with the skilled nursing was not pleasant Vitals/I&O/Wt Last Vital Signs Temp 97.4 F L 01/31/25 11:28 Pulse 89 01/31/25 11:28 Resp 16 01/31/25 11:28 BP 132/71 01/31/25 11:28 Pulse Ox 90 01/31/25 11:28 O2 Del Method Nasal Cannula 01/31/25 11:28 O2 Flow Rate 4 01/31/25 11:28 01/31/25 01/31/25 01/31/25 06:59 14:59 22:59 Intake Total 120 / 120 Output Total 1600 / 2600 Balance -1599 / 120 / 120 Weight last 48 hrs Weight 61.144 kg Weight 62.686 kg Weight 65.771 kg Physical Exam 2 Narrative: General: Alert and oriented, lying comfortably without any distress, on 3L NC/min nasal cannula oxygen supplementation HEENT: Normocephalic, atraumatic, grossly unremarkable exam Cardio: Sinus tachycardia,, normal S1-S2 without any murmurs, rubs, or gallops and JVD normal Respiratory: Bilateral equal air entry with coarse crepitations on the right lower middle zone to lower zone and is getting better, left side coarse crackles almost resolved, no wheezes, patient able to speak in full sentences GI: Abdomen soft, nontender, nondistended, normoactive bowel sounds present all 4 quadrants, Neuro: intact cranial nerves motor and sensory and cerebellar/coordination function without any focal neurological deficit Behavior: Appropriate and cooperative Extremities: Adequate palpable pulses, mild trace edema Data 01/31/25 05:20 01/31/25 05:20 Micro: Microbiology 01/30/25 10:29 Blood Culture - Preliminary Blood NEGATIVE TO DATE 01/30/25 10:21 Blood Culture - Preliminary Blood NEGATIVE TO DATE A&P Assessment and plan 1. Acute hypoxemic respiratory failure: Patient presented with acute hypoxemic respiratory failure which the patient was having at baseline. she is sent from skilled nursing and as per the patient, since there were concerns of further management and oxygen therapy was not enough for her as she needs assistance in moving The patient did not feel well and was having anxiety at the skilled nursing which could be also related to the fact that her is still admitted in the hospital. And due to her anxiety the patient was also getting short of breath Resume her home antibiotic course with levofloxacin IV daily for another 3 to 4 days Continue steroid prednisone 40 mg for 3 to 4 days Echo echo reported normal ejection fraction. Chest physiotherapy Monitor pulse ox and hemodynamics 2. Community acquired bacterial pneumonia: As mentioned above 3. Lumbar disc disease with radiculopathy: Adequate analgesia to continue Monitor for any pain 4. 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 no wbcs or recent abx use, non infectious in nature imodium as needed monitor hemodynamics and stool output 5. Acquired hypothyroidism: Continue home dose of levothyroxine 125 mcg daily 6. Primary hypertension: Resume home medication after reconciliation, amlodipine 5 mg daily 7. Gastroesophageal reflux disease without esophagitis: Continue PPI daily 8. History of aortic valve replacement: - Patient had history of aortic valve replacement twice, currently not on any anticoagulation - I reviewed patient chart and I could not see any aspirin or anticoagulation, the patient did not mention about any history of GI bleed or significant anemia? -Monitor CBC and continue follow-up with the cardiology at the time of discharge - Patient reported that she had atrial fibrillation in the past but is not on anticoagulation, continue home medications 9. Chronic pruritus: Multiple pruritic lesions on the back has been seen with some healing scabs, currently stable the lesions do not itch and does not seem to be of scabies? Patient following with the rheumatology and on low-dose steroids To continue to follow post discharge with the display trimmer 10. Dry mouth: Patient on pilocarpine tablet that helps with her dry mouth 11. Depression with anxiety: Continue home dose of sertraline 25 oral daily and alprazolam 0.25 mg twice daily 12. Pacemaker: Currently stable, PDMP PDMP Reviewed: Not Reviewed Attestations 2 Medical Necessity Statement*: Patient will stay over midnight for the management of her acute hypoxemia requiring oxygen therapy, pending echo and workup with the OT PT along with case assistant for transfer to a different skilled nursing Time Spent in Patient Care: 16 - 35 minutes (>than 50% of time sp ent in counselling and/or direct pt care on unit) . Other Attestations: Patient condition has been discussed at length with the patient/family, I have independently reviewed the chart labs imaging/diagnostics/EKG. the goals of care and code status with the patient/family/NOK/legal product representative, and documented accordingly. I have reconciled the medications after confirmation/comorbidities/current clinical condition. The management has been done according to the current clinical condition with respect to patient goals of care and based on recommendations/guidelines. The patient/family has been informed about the current condition and further plan of care. Agreed with the plan of care and understood without any language barrier. Every effort was made to ensure accuracy of valve mechanic. Any obvious errors or omissions should be clarified with the author of the document. Coding Level of Care Code 38312 Diagnoses Acute hypoxemic respiratory failure J96.01 Community acquired bacterial pneumonia J15.9 Lumbar disc disease with radiculopathy M51.16 Diarrhea R19.7 Acquired hypothyroidism E03.9 Hypothyroidism type: acquired Primary hypertension I10 Hypertension type: primary hypertension Gastroesophageal reflux disease without esophagitis K21.9 Esophagitis presence: without esophagitis History of aortic valve replacement Z95.2 Chronic pruritus L29.9 Dry mouth R68.2 Depression with anxiety F41.8 Pacemaker Z95.0
[2025-02-01] VITALS (8 sets, daily range): BP systolic 124–148; BP diastolic 74–94; PULSE 87–104; RESP 16–18; TEMP 36.6–37; O2SAT 89–95
[2025-02-01] MEDS: pantoprazole 40 mg SDV IVP ×2 (01:12→14:03)
[2025-02-01] MEDS: heparin 5,000 unit/mL INJ 1 mL 5000 UNIT SUBCUT ×2 (01:12→14:03)
--- NOTE | 2025-02-01 05:48 | PC.NURSE ---
could not accurately track urine output due to stool mixed in with every void. a guess would be a total of 400mL for the shift on 01/31- [id number]
[2025-02-01 06:23] LABS: Hematocrit 34.5 % (36-47); Hemoglobin 11.30 g/dL (11.27-16.99); Mean Corpuscular HGB Conc 32.8 g/dL (30-55); Mean Corpuscular Hemoglobin 28.8 pg (27-33); Mean Corpuscular Volume 88.0 fl (85-98); Nucleated Red Blood Cells % 0 %; Platelet Count 251 10^3/cmm (157-399); Red Blood Count 3.92 10^6/uL (3.85-5.65); White Blood Count 5.18 10^3/uL (3.29-11.43)
[2025-02-01 06:38] LABS: Lactate (Lactic Acid level) 2.5 mmol/L (0.5-2.2)
[2025-02-01 06:42] LABS: Alanine Aminotransferase 15 U/L (0-33); Albumin Level 2.5 g/dL (3.5-5.2); Alkaline Phosphatase 93 U/L (35-105); Anion Gap 14.8 (5-19); Aspartate Amino Transferase 28 U/L (0-32); Blood Urea Nitrogen 25 mg/dL (8-23); Calcium 8.3 mg/dL (8.5-10.5); Carbon Dioxide 27 mmol/L (22-29); Chloride 100 mmol/L (98-107); Globulin 2.3 g/dL (1.3-4.6); Glucose 146 mg/dL (65-115); Osmolality Calculated 293 mOsm/kg (285-295); Potassium 3.8 mmol/L (3.5-5.1); Sodium 138 mmol/L (136-145); Total Protein 4.8 g/dL (6.6-8.7)
[2025-02-01] MEDS: alum-mag-hydroxide-sime 30 mL UDC 15 ML PO ×2 (07:38→14:03)
[2025-02-01] MEDS: levofloxacin-dextrose 5 % 750 MG/150 ML PREMIX 100 MG IV (14:03)
--- NOTE | 2025-02-01 14:40 | PC.SOCIAL ---
*IMM* Patient received a copy of the important message from Medicare. Copy initialled and dated in chart.
--- NOTE | 2025-02-01 21:05 | P.PN_ITS ---
Subjective 2 Subjective: Patient seen in the morning, currently doing well, however becomes hypoxic while moving around Oxygen saturation slowly improving, the patient was emotional since her yesterday. Overall patient is getting better. Vitals/I&O/Wt Last Vital Signs Temp 97.9 F 02/01/25 20:00 Pulse 89 02/01/25 20:00 Resp 18 02/01/25 20:00 BP 147/94 02/01/25 20:00 Pulse Ox 94 02/01/25 20:00 O2 Del Method Nasal Cannula 02/01/25 20:00 O2 Flow Rate 4 02/01/25 20:00 02/01/25 02/01/25 02/01/25 06:59 14:59 22:59 Intake Total 480 / 840 340 / 340 270 / 610 Output Total 100 / 100 Balance 380 / 740 340 / 340 270 / 610 Weight last 48 hrs Weight 60.781 kg Weight 61.144 kg Physical Exam 2 Narrative: General: Alert and oriented, lying comfortably without any distress, on 3L NC/min nasal cannula oxygen supplementation HEENT: Normocephalic, atraumatic, grossly unremarkable exam Cardio: Normal rate rhythm,, normal S1-S2 without any murmurs, rubs, or gallops and JVD normal Respiratory: Bilateral equal air entry with coarse crepitations on the right lower zone, left lower zone almost resolved, no wheezes, patient able to speak in full sentences GI: Abdomen soft, nontender, nondistended, normoactive bowel sounds present all 4 quadrants, Neuro: intact cranial nerves motor and sensory and cerebellar/coordination function without any focal neurological deficit Behavior: Appropriate and cooperative Extremities: Adequate palpable pulses, mild trace edema Data 02/01/25 05:58 02/01/25 05:58 A&P Assessment and plan 1. Acute hypoxemic respiratory failure: Patient presented with acute hypoxemic respiratory failure which the patient was having at baseline and required oxygen therapy until her pneumonia gets healed when sent to [facility]. she is sent from [facility] back and as per the patient, since there were concerns of further management and oxygen therapy was not enough for her as she needs assistance in moving, and she also had anxiety episodes and she was unsatisfied with the [facility] care and preferred to come back Continue antibiotic course with levofloxacin IV daily until 28 Continue steroid prednisone 40 mg for 3 to 4 days Echo echo reported normal ejection fraction. Chest physiotherapy to continue D-dimers were high, which are nonspecific and likely related to her pneumonia and also could be needing, Patient is improving continue with OT PT Monitor pulse ox and hemodynamics 2. Community acquired bacterial pneumonia: As mentioned above 3. Lumbar disc disease with radiculopathy: Adequate analgesia to continue Monitor for any pain 4. 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 no wbcs or recent abx use, non infectious in nature imodium as needed monitor hemodynamics and stool output 5. Acquired hypothyroidism: Continue home dose of levothyroxine 125 mcg daily 6. Primary hypertension: Resume home medication after reconciliation, amlodipine 5 mg daily 7. Gastroesophageal reflux disease without esophagitis: Continue PPI daily 8. History of aortic valve replacement: - Patient had history of aortic valve replacement twice, currently not on any anticoagulation - I reviewed patient chart and I could not see any aspirin or anticoagulation, the patient did not mention about any history of GI bleed or significant anemia? Currently hemoglobin stable -Monitor CBC and continue follow-up with the cardiology at the time of discharge - Patient reported that she had atrial fibrillation in the past but is not on anticoagulation, continue home medications -To discuss patient for chronic anticoagulation? 9. Chronic pruritus: Multiple pruritic lesions on the back has been seen with some healing scabs, currently stable the lesions do not itch and does not seem to be of scabies? Patient following with the rheumatology and on low-dose steroids To continue to follow post discharge with the field marketing manager 10. Dry mouth: Patient on pilocarpine tablet that helps with her dry mouth 11. Depression with anxiety: Continue home dose of sertraline 25 oral daily and alprazolam 0.25 mg twice daily 12. Pacemaker: Currently stable, PDMP PDMP Reviewed: Not Reviewed Attestations 2 Medical Necessity Statement*: Patient will stay more than 2 midnights for management of her hypoxia that is improving with physical therapy and chest physiotherapy secondary to pneumonia and currently recovering Time Spent in Patient Care: 16 - 35 minutes (>than 50% of time sp ent in counselling and/or direct pt care on unit) . Other Attestations: Patient condition has been discussed at length with the patient/family, I have independently reviewed the chart labs imaging/diagnostics/EKG. the goals of care and code status with the patient/family/NOK/legal guest relations representative, and documented accordingly. I have reconciled the medications after confirmation/comorbidities/current clinical condition. The management has been done according to the current clinical condition with respect to patient goals of care and based on recommendations/guidelines. The patient/family has been informed about the current condition and further plan of care. Agreed with the plan of care and understood without any language barrier. Every effort was made to ensure accuracy of product safety tester. Any obvious errors or omissions should be clarified with the author of the document. Coding Level of Care Code 46461 Diagnoses Acute hypoxemic respiratory failure J96.01 Community acquired bacterial pneumonia J15.9 Lumbar disc disease with radiculopathy M51.16 Diarrhea R19.7 Acquired hypothyroidism E03.9 Hypothyroidism type: acquired Primary hypertension I10 Hypertension type: primary hypertension Gastroesophageal reflux disease without esophagitis K21.9 Esophagitis presence: without esophagitis History of aortic valve replacement Z95.2 Chronic pruritus L29.9 Dry mouth R68.2 Depression with anxiety F41.8 Pacemaker Z95.0
[2025-02-02] VITALS (11 sets, daily range): BP systolic 133–156; BP diastolic 72–98; PULSE 85–104; RESP 14–20; TEMP 36.4–36.8; O2SAT 80–99; BMI 23.5
[2025-02-02] MEDS: heparin 5,000 unit/mL INJ 1 mL 5000 UNIT SUBCUT (01:05)
[2025-02-02] MEDS: pantoprazole 40 mg SDV IVP ×2 (01:05→13:43)
[2025-02-02 03:33] LABS: Hematocrit 32.1 % (36-47); Hemoglobin 10.10 g/dL (11.27-16.99); Mean Corpuscular HGB Conc 31.5 g/dL (30-55); Mean Corpuscular Hemoglobin 28.4 pg (27-33); Mean Corpuscular Volume 90.2 fl (85-98); Nucleated Red Blood Cells % 0 %; Platelet Count 213 10^3/cmm (157-399); Red Blood Count 3.56 10^6/uL (3.85-5.65); White Blood Count 5.06 10^3/uL (3.29-11.43)
[2025-02-02 03:53] LABS: Alanine Aminotransferase 13 U/L (0-33); Albumin Level 2.3 g/dL (3.5-5.2); Alkaline Phosphatase 80 U/L (35-105); Anion Gap 10.5 (5-19); Aspartate Amino Transferase 24 U/L (0-32); Blood Urea Nitrogen 21 mg/dL (8-23); Calcium 8.1 mg/dL (8.5-10.5); Carbon Dioxide 30 mmol/L (22-29); Chloride 99 mmol/L (98-107); Globulin 2.1 g/dL (1.3-4.6); Glucose 160 mg/dL (65-115); Osmolality Calculated 286 mOsm/kg (285-295); Potassium 4.5 mmol/L (3.5-5.1); Sodium 135 mmol/L (136-145); Total Protein 4.4 g/dL (6.6-8.7)
[2025-02-02 03:54] LABS: Lactate (Lactic Acid level) 2.2 mmol/L (0.5-2.2)
[2025-02-02] MEDS: alum-mag-hydroxide-sime 30 mL UDC 15 ML PO ×2 (09:11→13:43)
--- NOTE | 2025-02-02 13:09 | XRR_ITS ---
PROCEDURE INFORMATION: Exam: XR Chest Exam date and time: 02/02/2025 1:37 PM Age: 84 years old Clinical indication: Shortness of breath; Prior surgery; Surgery date: 6+ months; Surgery type: Tavr, cabg, pacemaker TECHNIQUE: Imaging protocol: Radiologic exam of the chest. Views: 1 view. COMPARISON: CR XR chest 1V portable [id number] 01/30/2025 9:54 AM FINDINGS: Tubes, catheters and devices: Two lead cardiac pacemaker. Lungs: Patchy opacity involving the entire right lung as well as the left lower lobe, stable or slightly more conspicuous compared to prior. Pleural spaces: Unremarkable. No pleural effusion. No pneumothorax. Heart/Mediastinum: Post cardiac surgery residuals. Probable hiatal hernia. Bones/joints: Post vertebroplasty changes of the lower thoracic region. XR/XR chest 1V portable [id number] IMPRESSION: Patchy opacity involving the entire right lung as well as the left lower lobe, stable or slightly more conspicuous compared to prior.
[2025-02-02] MEDS: APIXABAN 2.5 MG TABLET PO ×2 (13:43→20:55)
--- NOTE | 2025-02-02 15:15 | PC.NURSE ---
This nurse got the patient up to the bedside commode. When patient was settled back in bed, the patient requested for her oxygen saturation to be checked because she felt short of breath. Patient's oxygen was 80% on 4.5L High flow nasal canula. This nurse sat the head of bed up and encouraged and educated patient to take slow deep breaths in through her nose and out through her mouth and cough. This nurse slowly increased patient's oxygen up to 9L high flow nasal canula and it took the patient about 8-9 minutes to recover to 90% on 9L high flow nasal canula. After several minutes and the patient resting, patient's oxygen saturations are sitting at 98-99%. Patient's oxygen was decreased to 6L high flow nasal canula.
--- NOTE | 2025-02-02 22:50 | PM.PN ---
Subjective Subjective: Patient seen in the morning, currently doing well, however becomes hypoxic while moving around Chest x-ray was done right-sided showing infiltrates and opacities with mild opacities on the left lower zone as well more or less the same. Vitals/I&O/Wt Last Vital Signs Temp 98.2 F 02/02/25 20:00 Pulse 91 02/02/25 20:00 Resp 18 02/02/25 20:00 BP 133/72 02/02/25 20:00 Pulse Ox 94 02/02/25 20:00 O2 Del Method Nasal Cannula 02/02/25 20:00 O2 Flow Rate 4 02/02/25 20:00 02/02/25 02/02/25 02/02/25 06:59 14:59 22:59 Intake Total 132.5 / 862.5 360 / 360 240 / 600 Output Total 250 / 550 Balance -117.5 / 312.5 360 / 360 240 / 600 Weight last 48 hrs Weight 62.188 kg Weight 60.781 kg Physical Exam Narrative: General: Alert and oriented, lying comfortably without any distress, on 3L NC/min nasal cannula oxygen supplementation HEENT: Normocephalic, atraumatic, grossly unremarkable exam Cardio: Normal rate rhythm,, normal S1-S2 without any murmurs, rubs, or gallops and JVD normal Respiratory: Bilateral equal air entry with coarse crepitations on the right middle and lower zone, left lower zone almost resolved however still appreciable, no wheezes, patient able to speak in full sentences GI: Abdomen soft, nontender, nondistended, normoactive bowel sounds present all 4 quadrants, Neuro: intact cranial nerves motor and sensory and cerebellar/coordination function without any focal neurological deficit Behavior: Appropriate and cooperative Extremities: Adequate palpable pulses, mild trace edema Data 02/02/25 03:18 02/02/25 03:18 A&P Assessment and plan 1. Acute hypoxemic respiratory failure: Patient having toxic respiratory failure secondary to pneumonia with chest x-ray further showing right-sided and left-sided infiltrates which are more prominent on the right side. WBC is normal Continue antibiotic course with levofloxacin IV daily until 28 Continue steroid prednisone 40 mg for 3 to 4 days Echo echo reported normal ejection fraction. Patient need aggressive physical therapy and chest physiotherapy D-dimers were high, which are nonspecific and likely related to her pneumonia and also could be needing, Patient is improving continue with OT PT Considering patient shortness of breath, PE was also differential however the patient does not want to proceed with CT scan with contrast considering patient had compromised renal functions and may worsen her nephropathy, however she has been started on apixaban anticoagulation for atrial fibrillation which can also cover if there is any PE, the patient agreed with the plan of care Monitor pulse ox and hemodynamics 2. Community acquired bacterial pneumonia: As mentioned above 3. Lumbar disc disease with radiculopathy: Adequate analgesia to continue Monitor for any pain 4. 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 no wbcs or recent abx use, non infectious in nature imodium as needed monitor hemodynamics and stool output 5. Acquired hypothyroidism: Continue home dose of levothyroxine 125 mcg daily 6. Primary hypertension: Resume home medication after reconciliation, amlodipine 5 mg daily 7. Gastroesophageal reflux disease without esophagitis: Continue PPI daily 8. History of aortic valve replacement: - Patient had history of aortic valve replacement twice, currently not on any anticoagulation - I reviewed patient chart and I could not see any aspirin or anticoagulation, the patient did not mention about any history of GI bleed or significant anemia? Currently hemoglobin stable -Monitor CBC and continue follow-up with the cardiology at the time of discharge - Patient reported that she had atrial fibrillation in the past but is not on anticoagulation, continue home medications -To discuss patient for chronic anticoagulation? 9. Chronic pruritus: Multiple pruritic lesions on the back has been seen with some healing scabs, currently stable the lesions do not itch and does not seem to be of scabies? Patient following with the rheumatology and on low-dose steroids To continue to follow post discharge with the video arcade manager 10. Dry mouth: Patient on pilocarpine tablet that helps with her dry mouth 11. Depression with anxiety: Continue home dose of sertraline 25 oral daily and alprazolam 0.25 mg twice daily 12. Pacemaker: Currently stable, 13. Atrial fibrillation: Patient with a history of atrial fibrillation does not remember or recall when she was on blood thinners but however mention she used to be on blood thinners. She never had a bleeding episode Hemoglobin stable Based on patient age and criteria initiated apixaban 2.5 mg twice daily and to monitor accordingly PDMP PDMP Reviewed: Not Reviewed Attestations Medical Necessity Statement*: Patient will stay more than 2 midnights for the management of her exertional hypoxia requiring active chest physiotherapy, atypical pneumonia requiring antibiotics and further disposition to skilled nursing Time Spent in Patient Care: 16 - 35 minutes (>than 50% of time spent in counselling and/or direct pt care on unit). Other Attestations: Patient condition has been discussed at length with the patient/family, I have independently reviewed the chart labs imaging/diagnostics/EKG. the goals of care and code status with the patient/family/NOK/legal telesales representative, and documented accordingly. I have reconciled the medications after confirmation/comorbidities/current clinical condition. The management has been done according to the current clinical condition with respect to patient goals of care and based on recommendations/guidelines. The patient/family has been informed about the current condition and further plan of care. Agreed with the plan of care and understood without any language barrier. Every effort was made to ensure accuracy of medical transcription editor. Any obvious errors or omissions should be clarified with the author of the document. Coding Level of Care Code 36958 Diagnoses Acute hypoxemic respiratory failure J96.01 Community acquired bacterial pneumonia J15.9 Lumbar disc disease with radiculopathy M51.16 Diarrhea R19.7 Acquired hypothyroidism E03.9 Hypothyroidism type: acquired Primary hypertension I10 Hypertension type: primary hypertension Gastroesophageal reflux disease without esophagitis K21.9 Esophagitis presence: without esophagitis History of aortic valve replacement Z95.2 Chronic pruritus L29.9 Dry mouth R68.2 Depression with anxiety F41.8 Pacemaker Z95.0 Atrial fibrillation I48.91
[2025-02-03] VITALS (8 sets, daily range): BP systolic 106–157; BP diastolic 72–85; PULSE 71–109; RESP 16–18; TEMP 36.3–36.9; O2SAT 90–98; BMI 23.5
[2025-02-03] MEDS: pantoprazole 40 mg SDV IVP ×2 (00:37→13:56)
[2025-02-03 04:48] LABS: Hematocrit 34.1 % (36-47); Hemoglobin 11.20 g/dL (11.27-16.99); Mean Corpuscular HGB Conc 32.8 g/dL (30-55); Mean Corpuscular Hemoglobin 28.9 pg (27-33); Mean Corpuscular Volume 88.1 fl (85-98); Nucleated Red Blood Cells % 0 %; Platelet Count 187 10^3/cmm (157-399); Red Blood Count 3.87 10^6/uL (3.85-5.65); White Blood Count 8.35 10^3/uL (3.29-11.43)
[2025-02-03] MEDS: cetylpyridinium Lozenge 1 EACH MUCOUS MEM ×4 (05:02→19:16)
[2025-02-03 05:22] LABS: Alanine Aminotransferase 11 U/L (0-33); Albumin Level 2.6 g/dL (3.5-5.2); Alkaline Phosphatase 86 U/L (35-105); Blood Urea Nitrogen 20 mg/dL (8-23); Calcium 8.1 mg/dL (8.5-10.5); Carbon Dioxide 28 mmol/L (22-29); Chloride 99 mmol/L (98-107); Globulin 1.8 g/dL (1.3-4.6); Glucose 95 mg/dL (65-115); Osmolality Calculated 288 mOsm/kg (285-295); Sodium 138 mmol/L (136-145); Total Protein 4.4 g/dL (6.6-8.7)
[2025-02-03 05:28] LABS: Anion Gap 15.3 (5-19); Aspartate Amino Transferase 22 U/L (0-32); Potassium 4.3 mmol/L (3.5-5.1)
[2025-02-03] MEDS: alum-mag-hydroxide-sime 30 mL UDC 15 ML PO ×2 (07:58→13:56)
[2025-02-03] MEDS: APIXABAN 2.5 MG TABLET PO ×2 (07:59→20:32)
--- NOTE | 2025-02-03 15:46 | CTR_ITS ---
PROCEDURE INFORMATION: Exam: CT Chest Without Contrast; Diagnostic Exam date and time: 02/03/2025 4:41 PM Age: 84 years old Clinical indication: Dyspnea and shortness of breath; Prior surgery; Surgery date: 6+ months; Surgery type: Open heart; Additional info: Patient having bilateral infiltrates, to do the CT chest without contrast TECHNIQUE: Imaging protocol: Diagnostic computed tomography of the chest without contrast. Radiation optimization: All CT scans at this facility use at least one of these dose optimization techniques: automated exposure control; mA and/or kV adjustment per patient size (includes targeted exams where dose is matched to clinical indication); or iterative reconstruction. COMPARISON: CR (CHEST, ) 02/02/2025 1:37 PM RADIATION DOSE METRICS: Total DLP (mGy-cm): 267.16 FINDINGS: Tubes, catheters and devices: Aortic valve prosthesis. Left pacemaker with leads in the heart. Lungs: Dense patchy ground-glass opacities throughout the right lung, left upper lobe, and posterior left lower lobe. Mild dependent atelectasis in the lung bases. Pleural spaces: Small right and trace left pleural effusions. No pneumothorax. Heart: Unremarkable. No cardiomegaly. No pericardial effusion. Coronary arteries: Dense coronary artery calcifications. Lymph nodes: Calcified mediastinal and right hilar lymph nodes. No lymphadenopathy. Vasculature: 4.4 cm ascending thoracic aortic aneurysm. Gallbladder and biliary ducts: Cholecystectomy clips. Kidneys: Atrophic left kidney. Stomach: Large gastric hernia in the posterior mediastinum. Bones/joints: Median sternotomy changes. Thoracic scoliosis and degenerative changes. T10, T11, and T12 compression fractures with kyphoplasty cement. Age-indeterminate L1 compression fracture. Soft tissues: Unremarkable. CT/CT chest wo con [id number] IMPRESSION: 1. Bilateral multilobar pneumonia, right greater than left. 2. Small right and trace left pleural effusions. 3. Atrophic left kidney. 4. Age-indeterminate L1 compression fracture.
--- NOTE | 2025-02-03 15:49 | P.PN_ITS ---
Subjective 2 Subjective: Patient seen in the morning, currently doing well, however becomes hypoxic while moving around. Currently on 4 to 5 L oxygen through nasal cannula Patient having sore throat and she is also emotional since her recently in this hospital Chest x-ray was done right-sided showing infiltrates and opacities with mild opacities on the left lower zone as well more or less the same. Vitals/I&O/Wt Last Vital Signs Temp 98.2 F 02/03/25 11:36 Pulse 102 H 02/03/25 11:36 Resp 16 02/03/25 11:36 BP 109/77 02/03/25 11:36 Pulse Ox 98 02/03/25 11:36 O2 Del Method Nasal Cannula 02/03/25 11:36 O2 Flow Rate 6 02/03/25 08:00 02/03/25 02/03/25 02/03/25 06:59 14:59 22:59 Intake Total 480 / 480 Output Total 300 / 700 Balance -300 / -100 480 / 480 Weight last 48 hrs Weight 62.097 kg Weight 62.188 kg Physical Exam 2 Narrative: General: Alert and oriented, lying comfortably without any distress, on 4 L NC/min nasal cannula oxygen supplementation,having mild sore throat and voice change HEENT: Normocephalic, atraumatic, grossly unremarkable exam Cardio: Normal rate rhythm,, normal S1-S2 without any murmurs, rubs, or gallops and JVD normal Respiratory: Bilateral equal air entry with coarse crepitations on the right middle and lower zone, left lower zone almost resolved however still appreciable, no wheezes, patient able to speak in full sentences GI: Abdomen soft, nontender, nondistended, normoactive bowel sounds present all 4 quadrants, Neuro: intact cranial nerves motor and sensory and cerebellar/coordination function without any focal neurological deficit Behavior: Appropriate and cooperative Extremities: Adequate palpable pulses, mild trace edema Data 02/03/25 04:43 02/03/25 04:43 A&P Assessment and plan 1. Acute hypoxemic respiratory failure: Patient having toxic respiratory failure secondary to pneumonia with chest x-ray further showing right-sided and left-sided infiltrates which are more prominent on the right side. WBC is normal Patient completed antibiotic course and WBC is normal, Considering patient infiltrates on chest x-ray and hypoxia, continue prednisone [address] chest without contrast to look for lung parenchyma Echo echo reported normal ejection fraction. Patient need aggressive physical therapy and chest physiotherapy D-dimers were high, which are nonspecific and likely related to her pneumonia and also could be needing, Patient is improving continue with OT PT Considering patient shortness of breath, PE was also differential however the patient does not want to proceed with CT scan with contrast considering patient had compromised renal functions and may worsen her nephropathy, however she has been started on apixaban anticoagulation for atrial fibrillation which can also cover if there is any PE, the patient agreed with the plan of care Monitor pulse ox and hemodynamics Consider pulm input/consult after CT scan of the chest based on clinical assessment. 2. Community acquired bacterial pneumonia: As mentioned above 3. Lumbar disc disease with radiculopathy: Adequate analgesia to continue Monitor for any pain 4. 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 no wbcs or recent abx use, non infectious in nature imodium as needed monitor hemodynamics and stool output Hold any bowel regiment 5. Acquired hypothyroidism: Continue home dose of levothyroxine 125 mcg daily 6. Primary hypertension: Resume home medication after reconciliation, amlodipine 5 mg daily 7. Gastroesophageal reflux disease without esophagitis: Continue PPI daily 8. History of aortic valve replacement: - Patient had history of aortic valve replacement twice, currently not on any anticoagulation - I reviewed patient chart and I could not see any aspirin or anticoagulation, the patient did not mention about any history of GI bleed or significant anemia? Currently hemoglobin stable -Monitor CBC and continue follow-up with the cardiology at the time of discharge - Patient reported that she had atrial fibrillation in the past but is not on anticoagulation, continue home medications - Patient agreed to continue on apixaban 2.5 mg twice daily, continue to monitor hemoglobin 9. Chronic pruritus: Multiple pruritic lesions on the back has been seen with some healing scabs, currently stable the lesions do not itch and does not seem to be of scabies? Patient following with the rheumatology and on low-dose steroids To continue to follow post discharge with the party plan sales director 10. Dry mouth: Patient on pilocarpine tablet that helps with her dry mouth Patient also having mild sore throat, supportive management provided 11. Depression with anxiety: Continue home dose of sertraline 25 oral daily and alprazolam 0.25 mg twice daily 12. Pacemaker: Currently stable, 13. Atrial fibrillation: Patient with a history of atrial fibrillation does not remember or recall when she was on blood thinners but however mention she used to be on blood thinners. She never had a bleeding episode Hemoglobin stable Based on patient age and criteria initiated apixaban 2.5 mg twice daily and to monitor accordingly PDMP PDMP Reviewed: Not Reviewed Attestations 2 Medical Necessity Statement*: Patient will stay more than 2 midnights for management of her hypoxia that is improving with physical therapy and chest physiotherapy secondary to pneumonia and currently recovering and patient need further investigation since there are still bilateral chest x-ray infiltrates and significant hypoxia on mobilization Time Spent in Patient Care: 16 - 35 minutes (>than 50% of time sp ent in counselling and/or direct pt care on unit) . Other Attestations: Patient condition has been discussed at length with the patient/family, I have independently reviewed the chart labs imaging/diagnostics/EKG. the goals of care and code status with the patient/family/NOK/legal sales and marketing representative, and documented accordingly. I have reconciled the medications after confirmation/comorbidities/current clinical condition. The management has been done according to the current clinical condition with respect to patient goals of care and based on recommendations/guidelines. The patient/family has been informed about the current condition and further plan of care. Agreed with the plan of care and understood without any language barrier. Every effort was made to ensure accuracy of director federal. Any obvious errors or omissions should be clarified with the author of the document. Coding Level of Care Code 97910 Diagnoses Acute hypoxemic respiratory failure J96.01 Community acquired bacterial pneumonia J15.9 Lumbar disc disease with radiculopathy M51.16 Diarrhea R19.7 Acquired hypothyroidism E03.9 Hypothyroidism type: acquired Primary hypertension I10 Hypertension type: primary hypertension Gastroesophageal reflux disease without esophagitis K21.9 Esophagitis presence: without esophagitis History of aortic valve replacement Z95.2 Chronic pruritus L29.9 Dry mouth R68.2 Depression with anxiety F41.8 Pacemaker Z95.0 Atrial fibrillation I48.91
[2025-02-04] VITALS (8 sets, daily range): BP systolic 115–152; BP diastolic 68–91; PULSE 78–100; RESP 15–19; TEMP 36.6–37.1; O2SAT 93–98; BMI 23.4
[2025-02-04] MEDS: pantoprazole 40 mg SDV IVP ×2 (03:25→14:19)
[2025-02-04] MEDS: cetylpyridinium Lozenge 1 EACH MUCOUS MEM ×7 (03:27→21:00)
[2025-02-04 04:00] LABS: Hematocrit 37.0 % (36-47); Hemoglobin 11.30 g/dL (11.27-16.99); Mean Corpuscular HGB Conc 30.5 g/dL (30-55); Mean Corpuscular Hemoglobin 28.4 pg (27-33); Mean Corpuscular Volume 93.0 fl (85-98); Nucleated Red Blood Cells % 0 %; Platelet Count 216 10^3/cmm (157-399); Red Blood Count 3.98 10^6/uL (3.85-5.65); White Blood Count 6.14 10^3/uL (3.29-11.43)
[2025-02-04 04:18] LABS: Alanine Aminotransferase 10 U/L (0-33); Albumin Level 2.7 g/dL (3.5-5.2); Alkaline Phosphatase 87 U/L (35-105); Blood Urea Nitrogen 20 mg/dL (8-23); Calcium 8.1 mg/dL (8.5-10.5); Carbon Dioxide 29 mmol/L (22-29); Chloride 99 mmol/L (98-107); Globulin 1.8 g/dL (1.3-4.6); Glucose 162 mg/dL (65-115); Osmolality Calculated 286 mOsm/kg (285-295); Sodium 135 mmol/L (136-145); Total Protein 4.5 g/dL (6.6-8.7)
[2025-02-04 04:29] LABS: Anion Gap 12.0 (5-19); Aspartate Amino Transferase 21 U/L (0-32); Potassium 5.0 mmol/L (3.5-5.1)
[2025-02-04] MEDS: APIXABAN 2.5 MG TABLET PO ×2 (08:07→20:59)
[2025-02-04] MEDS: alum-mag-hydroxide-sime 30 mL UDC 15 ML PO ×3 (08:07→21:00)
[2025-02-04 11:32] LABS: Coronavirus 229E,HKU1,NL63,OC4 Not Detected (NOT DETECT); Parainfluenza Virus Type 1 Not Detected (NOT DETECT); Parainfluenza Virus Type 2 Not Detected (NOT DETECT); Parainfluenza Virus Type 3 Not Detected (NOT DETECT); Parainfluenza Virus Type 4 Not Detected (NOT DETECT); SARS-COV-2 Not Detected (NOT DETECT)
--- NOTE | 2025-02-04 13:20 | PC.SOCIAL ---
IMM Updated Updated pt on IMM. No questions voiced. Provided pt a copy. Initialed, dated, & timed copy in chart.
--- NOTE | 2025-02-04 17:39 | P.PN_ITS ---
Subjective 2 Subjective: Patient seen in the morning, currently doing well, however becomes hypoxic while moving around. Currently on 4 to 5 L oxygen through nasal cannula Patient having sore throat slightly improving and she is also emotional since her recently in this hospital Chest x-ray and CT scan chest without contrast was done right-sided showing infiltrates and opacities with mild opacities on the left lower zone as well correlating with severe pneumonia Vitals/I&O/Wt Last Vital Signs Temp 98.0 F 02/04/25 16:00 Pulse 78 02/04/25 16:00 Resp 15 02/04/25 16:00 BP 137/68 02/04/25 16:00 Pulse Ox 95 02/04/25 16:00 O2 Del Method Nasal Cannula 02/04/25 16:00 O2 Flow Rate 5 02/04/25 08:45 02/04/25 02/04/25 02/04/25 06:59 14:59 22:59 Intake Total 240 / 960 240 / 240 Output Total 450 / 450 Balance -210 / 510 240 / 240 Weight last 48 hrs Weight 61.87 kg Weight 62.097 kg Physical Exam 2 Narrative: General: Alert and oriented, lying comfortably without any distress, on 4 L NC/min nasal cannula oxygen supplementation,having mild sore throat and voice change HEENT: Normocephalic, atraumatic, grossly unremarkable exam Cardio: Normal rate rhythm,, normal S1-S2 without any murmurs, rubs, or gallops and JVD normal Respiratory: Bilateral equal air entry with coarse crepitations on the right middle and lower zone, left lower zone almost resolved however still appreciable, no wheezes, patient able to speak in full sentences, relatively better than yesterday GI: Abdomen soft, nontender, nondistended, normoactive bowel sounds present all 4 quadrants, Neuro: intact cranial nerves motor and sensory and cerebellar/coordination function without any focal neurological deficit Behavior: Appropriate and cooperative Extremities: Adequate palpable pulses, mild trace edema Data 02/04/25 03:40 02/04/25 03:40 Micro: Microbiology 01/30/25 10:29 Blood Culture - Final Blood NO GROWTH AFTER 5 DAYS 01/30/25 10:21 Blood Culture - Final Blood NO GROWTH AFTER 5 DAYS A&P Assessment and plan 1. Acute hypoxemic respiratory failure: Patient having toxic respiratory failure secondary to pneumonia with chest x-ray further showing right-sided and left-sided infiltrates which are more prominent on the right side. WBC is normal Patient completed antibiotic course and WBC is normal, Considering patient infiltrates on chest x-ray and hypoxia, continue prednisone [address] chest without contrast patterns of pneumonia which is more prominent on the right side, for detailed report refer to the imaging studies Echo echo reported normal ejection fraction. Patient need aggressive physical therapy and chest physiotherapy D-dimers were high, which are nonspecific and likely related to her pneumonia and also could be needing, Patient is improving continue with OT PT Considering patient shortness of breath, PE was also differential however the patient does not want to proceed with CT scan with contrast considering patient had compromised renal functions and may worsen her nephropathy, however she has been started on apixaban anticoagulation for atrial fibrillation which can also cover if there is any PE, the patient agreed with the plan of care Monitor pulse ox and hemodynamics Consider pulm input/consult after CT scan of the chest based on clinical assessment. 2. Community acquired bacterial pneumonia: As mentioned above 3. Lumbar disc disease with radiculopathy: Adequate analgesia to continue Monitor for any pain 4. 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 no wbcs or recent abx use, non infectious in nature imodium as needed monitor hemodynamics and stool output Hold any bowel regiment 5. Acquired hypothyroidism: Continue home dose of levothyroxine 125 mcg daily 6. Primary hypertension: Resume home medication after reconciliation, amlodipine 5 mg daily 7. Gastroesophageal reflux disease without esophagitis: Continue PPI daily 8. History of aortic valve replacement: - Patient had history of aortic valve replacement twice, currently not on any anticoagulation - I reviewed patient chart and I could not see any aspirin or anticoagulation, the patient did not mention about any history of GI bleed or significant anemia? Currently hemoglobin stable -Monitor CBC and continue follow-up with the cardiology at the time of discharge - Patient reported that she had atrial fibrillation in the past but is not on anticoagulation, continue home medications - Patient agreed to continue on apixaban 2.5 mg twice daily, continue to monitor hemoglobin 9. Chronic pruritus: Multiple pruritic lesions on the back has been seen with some healing scabs, currently stable the lesions do not itch and does not seem to be of scabies? 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 Dry mouth: Patient on pilocarpine tablet that helps with her dry mouth Patient also having mild sore throat, supportive management provided 11. Depression with anxiety: Continue home dose of sertraline 25 oral daily and alprazolam 0.25 mg twice daily 12. Pacemaker: Currently stable, 13. Atrial fibrillation: Patient with a history of atrial fibrillation does not remember or recall when she was on blood thinners but however mention she used to be on blood thinners. She never had a bleeding episode Hemoglobin stable Based on patient age and criteria initiated apixaban 2.5 mg twice daily and to monitor accordingly PDMP PDMP Reviewed: Not Reviewed Attestations 2 Medical Necessity Statement*: Patient will stay over midnight for management of her hypoxia that is improving with physical therapy and chest physiotherapy secondary to pneumonia and currently recovering and patient need further investigation since there are still bilateral chest x-ray infiltrates and significant hypoxia on mobilization. Time Spent in Patient Care: 16 - 35 minutes (>than 50% of time sp ent in counselling and/or direct pt care on unit) . Other Attestations: Patient condition has been discussed at length with the patient/family, I have independently reviewed the chart labs imaging/diagnostics/EKG. the goals of care and code status with the patient/family/NOK/legal wholesale representative, and documented accordingly. I have reconciled the medications after confirmation/comorbidities/current clinical condition. The management has been done according to the current clinical condition with respect to patient goals of care and based on recommendations/guidelines. The patient/family has been informed about the current condition and further plan of care. Agreed with the plan of care and understood without any language barrier. Every effort was made to ensure accuracy of technical account representative. Any obvious errors or omissions should be clarified with the author of the document. Coding Level of Care Code 80828 Diagnoses Acute hypoxemic respiratory failure J96.01 Community acquired bacterial pneumonia J15.9 Lumbar disc disease with radiculopathy M51.16 Diarrhea R19.7 Acquired hypothyroidism E03.9 Hypothyroidism type: acquired Primary hypertension I10 Hypertension type: primary hypertension Gastroesophageal reflux disease without esophagitis K21.9 Esophagitis presence: without esophagitis History of aortic valve replacement Z95.2 Chronic pruritus L29.9 Dry mouth R68.2 Depression with anxiety F41.8 Pacemaker Z95.0 Atrial fibrillation I48.91
[2025-02-05] VITALS (7 sets, daily range): BP systolic 108–159; BP diastolic 66–90; PULSE 78–103; RESP 14–16; TEMP 36.4–36.8; O2SAT 91–97
[2025-02-05] MEDS: cetylpyridinium Lozenge 1 EACH MUCOUS MEM ×5 (01:04→12:44)
[2025-02-05] MEDS: pantoprazole 40 mg SDV IVP ×2 (01:04→12:44)
[2025-02-05] MEDS: alum-mag-hydroxide-sime 30 mL UDC 15 ML PO ×2 (01:04→07:51)
[2025-02-05 06:06] LABS: Hematocrit 33.9 % (36-47); Hemoglobin 10.90 g/dL (11.27-16.99); Mean Corpuscular HGB Conc 32.2 g/dL (30-55); Mean Corpuscular Hemoglobin 29.1 pg (27-33); Mean Corpuscular Volume 90.6 fl (85-98); Nucleated Red Blood Cells % 0 %; Platelet Count 205 10^3/cmm (157-399); Red Blood Count 3.74 10^6/uL (3.85-5.65); White Blood Count 10.58 10^3/uL (3.29-11.43)
[2025-02-05 06:30] LABS: Alanine Aminotransferase 9 U/L (0-33); Albumin Level 2.4 g/dL (3.5-5.2); Alkaline Phosphatase 73 U/L (35-105); Anion Gap 14.0 (5-19); Aspartate Amino Transferase 17 U/L (0-32); Blood Urea Nitrogen 22 mg/dL (8-23); Calcium 8.2 mg/dL (8.5-10.5); Carbon Dioxide 27 mmol/L (22-29); Chloride 99 mmol/L (98-107); Globulin 2.3 g/dL (1.3-4.6); Glucose 95 mg/dL (65-115); Osmolality Calculated 285 mOsm/kg (285-295); Potassium 4.0 mmol/L (3.5-5.1); Sodium 136 mmol/L (136-145); Total Protein 4.7 g/dL (6.6-8.7)
[2025-02-05 06:33] LABS: Respiratory Syncytial Virus Ce NEGATIVE (Negative); SARS-CoV-2 PCR NEGATIVE (Negative)
[2025-02-05] MEDS: APIXABAN 2.5 MG TABLET PO (07:51)
--- NOTE | 2025-02-05 10:55 | PC.OT ---
Attempted skilled OT tx. Pt upright in chair feeding self ice cream. Pt found in good spirits with no needs at this time.
--- NOTE | 2025-02-05 11:46 | P.DS_ITS ---
Discharge Providers Date of Admission: 01/30/25 14:33 Date of Discharge: February 04, 2025 Attending Provider at Admission: Amanda Hylton MD Attending Provider at Discharge: Amanda Hylton MD Primary Care Provider: Fredrick Aldridge MD Diagnoses at Discharge Discharge Diagnosis 1. Acute hypoxemic respiratory failure: 2. Community acquired bacterial pneumonia: 3. Lumbar disc disease with radiculopathy: 4. Diarrhea: 5. Acquired hypothyroidism: 6. Primary hypertension: 7. Gastroesophageal reflux disease without esophagitis: 8. History of aortic valve replacement: 9. Chronic pruritus: 10. Dry mouth: 11. Depression with anxiety: 12. Pacemaker: 13. Atrial fibrillation: Reason for Visit Reason for Visit: SOB Brief History: As per the previous retrospective notes and patient Jacklyn Schultz is a 84 year old female w/ pmhx of HTN, hypothyroidism, GERD, polyarthralgia, and pacemaker presents to the ED with c/o SOB. Patient was recently discharged as a case of community-acquired pneumonia/severe pneumonia to senior care. At the senior care the patient was feeling anxious and requested for Xanax however was not getting better. Her mobility was also causing shortness of breath. she did not report chest pain or pressure and no increase or worsening SOB. Therefore since she needs more assistance at senior care and oxygen therapy, she was sent back to ER. the patient also was not contented with the management at the senior care and preferred to leave. no recent fevers or any lower leg swellings dizziness or syncope or presyncope. No history of abdominal pain or nausea or vomiting. she has been having intermitten diarrhea from a month or so due to her anxiety likely IBS?. Rest of the review of system is unremarkable Hospital Course Hospital Course Patient admitted as a case of acute hypoxemic respiratory failure and readmitted after having hypoxia in the senior care where she was sent after discharge recently for pneumonia. The patient had a bad experience at the senior care because she was requiring oxygen however was not assisted therefore went into difference of opinion with the nursing staff and did not feel good about it and came back to the hospital. The patient was treated in the hospital with chest physiotherapy, incentive spirometry, OT PT and was given rest of the antibiotic course and steroids in the hospital. Repeat blood cultures did not show any infectious pathology. WBCs were normal. Kidney functions remained stable. Considering patient hypoxia further workup was done including repeat chest x-ray and CT scan of the chest without contrast that showed patient has right-sided pneumonia and infiltrates and left side as well which are more or less the same goes with pneumonia. She was also having a differential diagnosis of pulmonary embolism however based on patient's compromised kidney failure it was discussed that the patient CTPA may require contrast and in this scenario may affect her kidneys. She did not want to proceed with that however based on the patient history of atrial fibrillation, it was decided to start her on apixaban 2.5 mg twice daily which will also cover as a standard treatment for pulmonary embolism if there is any. Echo did not show any congestive heart failure features or any right heart strain. Based on patient heart rate and history of atrial fibrillation, metoprolol low-dose added. And steroids short course for 2 to 3 days. Overall patient is slowly improving and later on with the help of rn case management decided for [facility] home. Patient requirement in/during senior care : patient requires oxygen and assistance during mobilization from the bed up to chair. Patient oxygen requirement can go up to 5 to 6 L as well and she needs assistance with her chest physical therapy with flutter valve, incentive spirometry and manual clamping as well to help her with getting better. Patient needs assistance with her mobility even getting her up from the bed to chair, to the bathroom, and even using walker and not to be left alone when she wants to mobilize. Patient was provided with medications that were were reconciled after confirmation and according to patient comorbidities and appropriate follow-ups and referrals were provided at the time of discharge/transfer. patient understanding/establishing the stability of the current condition was considered during discharge/Transfer with all the risk and benefits thoroughly explained. Patient condition has been discussed at length with the patient/family, I have independently reviewed the chart labs imaging/diagnostics/EKG. the goals of care and code status with the patient/family/NOK/legal business office representative, and documented accordingly. The management has been done according to the current clinical condition with respect to patient goals of care and based on recommendations/guidelines. The patient/family has been informed about the current condition and further plan of care. Agreed with the plan of care and understood without any language barrier. Every effort was made to ensure accuracy of teachers aide. Any obvious errors or omissions should be clarified with the author of the document. Physical Exam Narrative: General: Alert and oriented, lying comfortably without any distress, on 4 L NC/min nasal cannula oxygen supplementation,having mild sore throat and voice change HEENT: Normocephalic, atraumatic, grossly unremarkable exam Cardio: Normal rate rhythm,, normal S1-S2 without any murmurs, rubs, or gallops and JVD normal Respiratory: Bilateral equal air entry with coarse crepitations on the right middle and lower zone, left lower zone almost resolved however still appreciable, no wheezes, patient able to speak in full sentences, relatively better than yesterday GI: Abdomen soft, nontender, nondistended, normoactive bowel sounds present all 4 quadrants, Neuro: intact cranial nerves motor and sensory and cerebellar/coordination function without any focal neurological deficit Behavior: Appropriate and cooperative Extremities: Adequate palpable pulses, mild trace edema Discharge Data Studies Completed and Pending Completed Studies During Hospitalization Category Date Time Status CT chest wo con [id number] Routine Cat Scan 02/03/25 15:46 Completed XR chest 1V portable [id number] Routine Exams 02/02/25 13:09 Completed XR chest 1V portable [id number] Stat Exams 01/30/25 09:49 Completed CV. echo complete* [id number] Routine Ultrasound 01/30/25 18:39 Completed Pending at discharge Category Date Time Status CBC Auto Diff [Complete Blood Count w/Auto] AM LABS Lab 02/05/25 04:00 Ordered CMP [Comprehensive Metabolic Panel] AM LABS Lab 02/05/25 04:00 Ordered Covid / Flu / RSV PCR Stat Lab 02/03/25 15:46 Uncollected Sputum Culture and Gram Stain Stat Lab 01/30/25 13:29 Uncollected Radiology Impressions Chest X-Ray 02/02/25 13:09 IMPRESSION: Patchy opacity involving the entire right lung as well as the left lower lobe, stable or slightly more conspicuous compared to prior. Chest CT 02/03/25 15:46 IMPRESSION: 1. Bilateral multilobar pneumonia, right greater than left. 2. Small right and trace left pleural effusions. 3. Atrophic left kidney. 4. Age-indeterminate L1 compression fracture. Laboratory Results WBC 6.14 10^3/uL (3.29-11.43) 02/04/25 03:40 RBC 3.98 10^6/uL (3.85-5.65) 02/04/25 03:40 Hgb 11.30 g/dL (11.27-16.99) 02/04/25 03:40 Hct 37.0 % (36-47) 02/04/25 03:40 MCV 93.0 fl (85-98) D 02/04/25 03:40 MCH 28.4 pg (27-33) 02/04/25 03:40 MCHC 30.5 g/dL (30-55) D 02/04/25 03:40 RDW 15.3 % (12.1-15.1) H 02/04/25 03:40 Plt Count 216 10^3/cmm (157-399) 02/04/25 03:40 MPV 10.2 fL (7.4-10.4) 02/04/25 03:40 Neut % (Auto) 80.3 % 02/04/25 03:40 Lymph % (Auto) 16.3 % 02/04/25 03:40 Taliaferro % (Auto) 1.6 % 02/04/25 03:40 Eos % (Auto) 0.0 % 02/04/25 03:40 Baso % (Auto) 0.3 % 02/04/25 03:40 Neut # (Auto) 4.93 10^3/uL (1.8-7.7) 02/04/25 03:40 Lymph # (Auto) 1.0 10^3/uL (0.8-4.8) 02/04/25 03:40 Taliaferro # (Auto) 0.1 10^3/uL (0.2-0.9) L 02/04/25 03:40 Eos # (Auto) 0.0 10^3/uL (0.0-0.8) 02/04/25 03:40 Baso # (Auto) 0.0 10^3/uL (0.0-0.1) 02/04/25 03:40 Nucleated RBC % (auto) 0 % 02/04/25 03:40 Nucleated RBCs # 0.0 /100WBC 02/04/25 03:40 D-Dimer 3.83 ug/mLFEU (0-0.59) H 02/01/25 19:29 Specimen Type Arterial 01/30/25 09:49 Sample Site Radial, right 01/30/25 09:49 ABG pH 7.49 (7.35-7.45) H 01/30/25 09:49 ABG pCO2 34.3 mmHg (35-45) L 01/30/25 09:49 ABG pO2 68.1 mmHg (80.0-100.0) L 01/30/25 09:49 ABG HCO3 26.3 mmol/L (22-26) H 01/30/25 09:49 ABG O2 Saturation 94.6 01/30/25 09:49 ABG Base Excess 3.2 mmol/L (-2.0-2.0) H 01/30/25 09:49 Russ Test Pos 01/30/25 09:49 A-a O2 Gradient 5.1 mmHg (5-10) 01/30/25 09:49 Hematocrit 37.6 % (37-47) 01/30/25 09:49 Hgb O2 Saturation 92.8 % (95-100) L 01/30/25 09:49 Carboxyhemoglobin 0.7 %THgb (0.4-20.1) 01/30/25 09:49 Methemoglobin 1.2 % (0.4-1.5) 01/30/25 09:49 Total Hemoglobin 12.3 g/dL (12-16) 01/30/25 09:49 Sodium 137.0 mmol/L (131-143) 01/30/25 09:49 Potassium 4.4 mmol/L (3.5-5.0) 01/30/25 09:49 Glucose 113.0 mg/dL (70-115) 01/30/25 09:49 Ionized Calcium 1.2 mmol/L (1.1-1.4) 01/30/25 09:49 O2 Delivery Device Nc 01/30/25 09:49 O2 Liters/Min 4.5 % 01/30/25 09:49 Biology Specialist ID [place] 01/30/25 09:49 Sodium 135 mmol/L (136-145) L 02/04/25 03:40 Potassium 5.0 mmol/L (3.5-5.1) 02/04/25 03:40 Chloride 99 mmol/L (98-107) 02/04/25 03:40 Carbon Dioxide 29 mmol/L (22-29) 02/04/25 03:40 Anion Gap 12.0 (5-19) 02/04/25 03:40 BUN 20 mg/dL (8-23) 02/04/25 03:40 Creatinine 1.1 mg/dL (0.5-0.9) H 02/04/25 03:40 GFR Calculation Not Reportable 02/04/25 03:40 Glucose 162 mg/dL (65-115) H 02/04/25 03:40 Calculated Osmolality 286 mOsm/kg (285-295) 02/04/25 03:40 Lactic Acid 2.1 mmol/L (0.5-2.2) 01/30/25 13:34 Lactic Acid (Sepsis) 2.3 mmol/L (0.5-2.2) H 01/30/25 16:09 Lactate 2.2 mmol/L (0.5-2.2) 02/02/25 03:18 Calcium 8.1 mg/dL (8.5-10.5) L 02/04/25 03:40 Phosphorus 2.9 mg/dL (2.5-4.5) 01/31/25 05:20 Magnesium 2.2 mg/dL (1.7-2.3) 01/31/25 05:20 Total Bilirubin 0.4 mg/dL (0.15-1.2) 02/04/25 03:40 AST 21 U/L (0-32) 02/04/25 03:40 ALT 10 U/L (0-33) 02/04/25 03:40 Alkaline Phosphatase 87 U/L (35-105) 02/04/25 03:40 Troponin T Baseline 29 ng/L (0-10) H 01/30/25 09:57 Troponin T 60 Minute 26.45 ng/L (0-10) H 01/30/25 10:58 Delta Troponin T -2.55 ABS# (0-10) L 01/30/25 10:58 Troponin T Hi Sens 6Hr 26.70 ng/L (0-10) H 01/30/25 15:32 Troponin T Hi Sens 6Hr Delta -2.30 ng/L (0-12) L 01/30/25 15:32 C-Reactive Protein 53.8 mg/L (0.0-4.9) H 01/30/25 09:57 C-React Prot High Sens 7.320 mg/dL (0.0-0.3) H 01/30/25 10:58 NT-Pro-B Natriuret Pep 2020 pg/mL (0-450) H 01/30/25 09:57 Total Protein 4.5 g/dL (6.6-8.7) L 02/04/25 03:40 Albumin 2.7 g/dL (3.5-5.2) L 02/04/25 03:40 Globulin 1.8 g/dL (1.3-4.6) 02/04/25 03:40 Procalcitonin 0.18 ng/mL (0-0.5) 01/30/25 09:57 Adenovirus (PCR) Not detected (NOT DETECT) 02/04/25 09:26 C. pneumoniae DNA (PCR) Not detected (NOT DETECT) 02/04/25 09:26 Coronavirus 229E (PCR) Not detected (NOT DETECT) 02/04/25 09:26 Human Metapneumovir PCR Not detected (NOT DETECT) 02/04/25 09:26 Influenza A (H1) PCR Not detected (NOT DETECT) 02/04/25 09:26 Influenza A (PCR) Negative (Negative) 01/30/25 10:05 Influ A (H1/09) PCR Not detected (NOT DETECT) 02/04/25 09:26 Influenza A (H3) PCR Not detected (NOT DETECT) 02/04/25 09:26 Influenza Type A (PCR) Not detected (NOT DETECT) 02/04/25 09:26 Influenza Type B (PCR) Not detected (NOT DETECT) 02/04/25 09:26 M. pneumoniae (PCR) Not detected (NOT DETECT) 02/04/25 09:26 Parainfluenza 1 (PCR) Not detected (NOT DETECT) 02/04/25 09:26 Parainfluenza 2 (PCR) Not detected (NOT DETECT) 02/04/25 09:26 Parainfluenza 3 (PCR) Not detected (NOT DETECT) 02/04/25 09:26 Parainfluenza 4 (PCR) Not detected (NOT DETECT) 02/04/25 09:26 RSV (PCR) Negative (Negative) 01/30/25 10:05 RSV Type A (PCR) Not detected (NOT DETECT) 02/04/25 09:26 RSV Type B (PCR) Not detected (NOT DETECT) 02/04/25 09:26 Entero/Rhino (PCR) Not detected (NOT DETECT) 02/04/25 09:26 SARS-CoV-2 (PCR) Not detected (NOT DETECT) 02/04/25 09:26 Vitals Last Vital Signs Temp 98.0 F 02/04/25 16:00 Pulse 78 02/04/25 16:00 Resp 15 02/04/25 16:00 BP 137/68 02/04/25 16:00 Pulse Ox 95 02/04/25 16:00 O2 Del Method Nasal Cannula 02/04/25 16:00 O2 Flow Rate 6.5 02/04/25 19:20 Discharge Plan Discharge Patient Disposition: Xfer SNF Condition: Stable Prescriptions: New loperamide 2 mg Capsule 2 mg PO QID PRN (Reason: Diarrhea) 10 Days Qty: 20 0RF Sore Throat (benzocaine-menth) 15-3.6 mg Lozenge 1 tejas mucous membrane Q2H 10 Days Qty: 20 0RF Eliquis 2.5 mg Tablet 2.5 mg PO BID@0900,2100 60 Days Qty: 120 0RF prednisone 20 mg tablet 20 mg PO BID Qty: 6 0RF metoprolol tartrate 25 mg tablet 12.5 mg PO BIDWM Qty: 60 0RF Continued triamcinolone acetonide 0.1 % cream 1 applic topical BID PRN (Reason: itching) Qty: 30 1RF pilocarpine HCl 5 mg tablet 5 mg PO TID Qty: 90 3RF leflunomide 20 mg tablet 20 mg PO DAILY Qty: 90 1RF propafenone 150 mg tablet 150 mg PO Q8H famotidine 40 mg tablet 40 mg PO DAILY PRN (Reason: upset stomach) isosorbide mononitrate 30 mg tablet extended release 24 hr 30 mg PO QAM amlodipine 5 mg tablet 5 mg PO QPM cyanocobalamin (vitamin B-12) 1,000 mcg/mL solution 1,000 mcg IM Q30D levothyroxine 125 mcg tablet 125 mcg PO QAM sertraline 25 mg tablet 25 mg PO DAILY tizanidine 4 mg tablet 2 mg PO Q6H PRN (Reason: muscle spasticity) Qty: 20 0RF Rx Instructions: do not exceed 3 doses per 24 hrs gabapentin 300 mg capsule 300 mg PO BEDTIME Robitussin Cough-Chest Baldomero DM 10-200 mg capsule 1 tab-cap PO Q8H PRN (Reason: cough) 10 Days Qty: 30 0RF alprazolam 0.25 mg tablet 0.25 mg PO BID PRN (Reason: anxiety) 10 Days Qty: 20 1RF albuterol sulfate 0.63 mg/3 mL solution for nebulization 0.63 mg inhalation Q8H PRN (Reason: shortness of breath or wheezing) Qty: 75 0RF (DME) nebulizer accessories Kit See Rx Instructions .Route Qty: 1 0RF Rx Instructions: As directed Aquaphor Healing 41 % ointment 1 applic topical DAILY PRN (Reason: dry skin) 60 Days Qty: 20 0RF hydrocodone-acetaminophen 5-325 mg tablet 1 tab PO DAILY PRN (Reason: pain) Qty: 10 0RF Discontinued permethrin 5 % cream See Rx Instructions .ROUTE .COMPLEX Rx Instructions: CHANGE bed linens tonight. shower. apply ALL over from neck down. sleep with this ON. shower again in THE morning and CHANGE bed linens again, REPEAT in ONE week. prednisone 20 mg Tablet 40 mg PO Q24H 4 Days Qty: 8 0RF levofloxacin 750 mg tablet 750 mg PO DAILY 7 Days Qty: 7 0RF Discharge Order = DC NOW: Discharge Order (Routine); Ordered 02/05/25 Ordered By: Amanda Hylton Referrals: [facility] [Staff Physician] Fredrick Aldridge MD [Primary Care Provider, Family Practice] Discharge Diet: Advance as tolerated Discharge Activity: Limit activity as instructed, As per PT/OT instructions and Oxygen as instructed Patient Instructions: Prednisone (By mouth), Apixaban (By mouth), Opioid Safety, Patient Portal & [place] Instructions Activity Restrictions/Additional Instructions: Please increase O2 by 2L with exertion. Please assist patient with ambulation. Patient requiring 4-6L NC. Discharge Attestations Time Spent in Discharge Care*: greater than 30 min Specific Discharge Activities: educating patient, educating and/or supporting family/caregiver, discussing with pcp/other providers, discussing with home health care case manager/social workers/dc planners, documenting/other paperwork and evaluating patient/reviewing data Status at Discharge: Cognitive status at discharge: cognitively intact , Behavioral status at discharge: cooperative , Functional status at discharge: other assisted ambulation , Overall status at discharge: patient is progressing back to baseline Quality Metrics Clinical Quality Measures [ No reported AMI, CVA or VTE this stay] Coding Level of Care Code 01153 Diagnoses Acute hypoxemic respiratory failure J96.01 Community acquired bacterial pneumonia J15.9 Lumbar disc disease with radiculopathy M51.16 Diarrhea R19.7 Acquired hypothyroidism E03.9 Hypothyroidism type: acquired Primary hypertension I10 Hypertension type: primary hypertension Gastroesophageal reflux disease without esophagitis K21.9 Esophagitis presence: without esophagitis History of aortic valve replacement Z95.2 Chronic pruritus L29.9 Dry mouth R68.2 Depression with anxiety F41.8 Pacemaker Z95.0 Atrial fibrillation I48.91
== END 2025-02-05 14:45 | disposition skilled nursing facility (03) | DRG 193 ==
LOC: ER 13:05 → MEDSURG 14:33
PROVIDERS: Admitting Provider Student in an Organized Health Care Education/Training Program; Emergency Provider Emergency Medicine; PCP Family Medicine; Visit Provider Student in an Organized Health Care Education/Training Program
DX: J18.9 Pneumonia, unspecified organism (principal); J96.01 Acute respiratory failure with hypoxia; M51.16 Intervertebral disc disorders with radiculopathy, lumbar region; R19.7 Diarrhea, unspecified; E03.9 Hypothyroidism, unspecified; I10 Essential (primary) hypertension; K21.9 Gastro-esophageal reflux disease without esophagitis; Z95.2 Presence of prosthetic heart valve; F32.A Depression, unspecified; F41.9 Anxiety disorder, unspecified; Z95.0 Presence of cardiac pacemaker; I48.91 Unspecified atrial fibrillation; Z79.890 Hormone replacement therapy; R68.2 Dry mouth, unspecified; L29.9 Pruritus, unspecified; M81.0 Age-related osteoporosis without current pathological fracture; Z99.81 Dependence on supplemental oxygen
CPT/HCPCS: 36415; 36600; 71045; 71250; 80051; 80053; 82330; 82805; 83605; 83735; 83880; 84100; 84145; 84484; 85025; 85378; 86140; 86141; 87040; 87486; 87581; 87633; 87637; 93005; 93306; 94760; 96365; 96372; 96375; 97116; 97162; 97165; 97530; 97535; 99285; J1644; J1938; J1956; J2470; J7120; J7512; J9999